=== PATIENT | female | born 1945 | race African-American/Black ===

== ENCOUNTER 2020-03-11 00:42 | Inpatient (IN) | payer OTHER ==
[~2020-03-11] VITALS: Ht 165.1 cm; Wt 66.7 kg
[2020-03-11] VITALS (20 sets, daily range): BP systolic 87–134; BP diastolic 53–79
--- NOTE | 2020-03-11 00:42 | NUR ---
ED Nurse Note: Patient brought in by ambulance [id number] from [facility] for SOB and O2 sat at 69% on 15L BVM. Patient aao x 0, nonverbal, does not respond to painful or verbal stimuli. Patient trached. Patient placed on alarm security or surveillance monitor. RT and ERMD at bedside. 18g Left AC established, all bloodwork drawn, urine, covid, and MRSA VRE CRE swabs sent to lab.
[2020-03-11] MEDS ORDERED: ASPIRIN81 MG ORAL (00:48)
[2020-03-11] MEDS ORDERED: ALLOPURINOL100 M1 ORAL (00:48)
[2020-03-11] MEDS ORDERED: AMANTADINE100 M2 ORAL (00:48)
[2020-03-11] MEDS ORDERED: AMLODIPINE BESY10 MG ORAL (00:48)
[2020-03-11] MEDS ORDERED: FAMOTIDINE20 MG ORAL (00:48)
[2020-03-11 01:19] LABS: HEMATOCRIT 30.7 % (37.0-47.0); MEAN CORPUSCULAR VOLUME 91 FL (80-99); PLATELET COUNT 473 K/UL (150-450); RED BLOOD COUNT 3.36 M/UL (4.20-5.40); RED CELL DISTRIBUTION WIDTH 19.4 % (11.6-14.8)
[2020-03-11 01:21] LABS: WHITE BLOOD COUNT 23.5 K/UL (4.8-10.8)
[2020-03-11 01:25] LABS: APPEARANCE,URINE CLEAR; BILIRUBIN, URINE NEGATIVE (NEGATIVE); COLOR,URINE PALE YELLOW; GLUCOSE, URINE (UA) NEGATIVE (NEGATIVE); KETONES,URINE NEGATIVE (NEGATIVE); LEUKOCYTE ESTERASE ,URINE 2+ (NEGATIVE); NITRITE,URINE NEGATIVE (NEGATIVE); PH,URINE 6.5 (4.5-8.0); PROTEIN,URINE 2+ (NEGATIVE); UROBILINOGEN,URINE NORMAL MG/DL (0.0-1.0)
--- NOTE | 2020-03-11 01:30 | Emergency Room Report ---
History of Present Illness General Chief Complaint: Dyspnea/Respdistress Source: Patient Present Illness HPI 74-year-old female, history of intracranial hemorrhage, respiratory failure, tracheostomy not ventilator dependent here with hypoxia and tachycardia. Patient lives at a longterm and per the longterm report the patient was found to be hypoxic with an oxygen saturation of 65% on room air. He was immediately placed on oxygen via a bag valve and paramedics were immediately called. When they arrived the patient was still hypoxic and was maintained on 15 L of oxygen. They were unable to establish an IV in route. EKG showed sinus tachycardia with a heart rate in the 150s. Patient is nonverbal and alert and oriented x0 at her baseline and is unable to provide history or participate in physical examination or review of systems secondary to her baseline altered mental status. 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 Hx Diabetes: Yes - DM II Hx Gastrointestinal Problems: Yes - GOUT, GLAUCOMA Hx Neurological Problems: Yes - PARKINSONS, DEMENTIA, HYDROCEPHALUS Review of Systems All Other Systems: limited - Alert and oriented x0, nonverbal Physical Exam Vital Signs Date Time Temp Pulse Resp B/P (MAP) Pulse Ox O2 Delivery O2 Flow Rate FiO2 03/11/20 00:35 97.3 140 16 165/98 (120) 69 Ambu-Bag 03/11/20 00:53 100 Sp02 EP Interpretation: reviewed General Appearance: non-toxic, other - Appears cachectic, chronically ill Head: normocephalic, atraumatic Eyes: bilateral eye normal inspection, bilateral eye PERRL ENT: hearing grossly normal, normal pharynx, no angioedema Neck: full range of motion, supple/symm/no masses, other - Tracheostomy in place without any surrounding erythema or induration or bleeding Respiratory: chest non-tender, normal breath sounds, speaking full sentences, other - Mechanical breath sounds and rales in all lung lom[place] Cardiovascular #1: no edema, other - Tachycardic 150 bpm, regular rhythm Cardiovascular #2: 2+ carotid (R), 2+ carotid (L), 2+ radial (R), 2+ radial (L), 2+ dorsalis pedis (R), 2+ dorsalis pedis (L) Gastrointestinal: normal bowel sounds, non tender, soft, non-distended, no guarding, no rebound, other - PEG tube in place without any surrounding erythema or induration or drainage Rectal: deferred Genitourinary: normal inspection, no CVA tenderness Musculoskeletal: back normal, normal range of motion, gait/station normal, non- tender Neurologic: other - Withdraws from pain. Moving all extremities slowly and nonpurposefully. Unable to otherwise participate in neurologic examination. Extraocular movement is intact Psychiatric: judgement/insight normal, memory normal, mood/affect normal, no suicidal/homicidal ideation Lymphatic: no adenopathy Medical Decision Making Diagnostic Impression: Primary Impression: Respiratory failure Additional Impressions: Hypernatremia Pneumonia UTI (urinary tract infection) Sepsis ER Course Total critical care time: Approximately 45 minutes Due to a high probability of clinically significant, life threatening deterioration, the patient required the highest level of preparedness to intervene emergently and I personally spent this critical care time directly and personally managing the patient. This critical care time included obtaining a history, examining the patient, pulse oximetry, ordering and reviewing studies, ordering treatments, evaluating response to treatment and updating management plan as needed, frequent reassessment and discussion with other providers as well as arranging for ultimate disposition. This critical to care time was performed to assess and manage the high probability of life-threatening deterioration that could result in multiorgan failure. This critical care time is separate from the separately billable procedures and treating other patients. Procedure: Ultrasound-guided IV. 18-gauge IV placed in the right brachial vein. No complications EKG: Tachycardic [address] or T wave abnormalities., no ischemia, intervals WNL. No ectopy. Normal axis Rhythm strip: patient monitored for arrhythmias - no malignant dysrhythmias, runs of PVCs, nor pauses noted Laboratory Tests Test 03/11/20 00:45 03/11/20 01:00 White Blood Count 23.5 K/UL (4.8-10.8) *H Red Blood Count 3.36 M/UL (4.20-5.40) L Hemoglobin 9.0 G/DL (12.0-16.0) L Hematocrit 30.7 % (37.0-47.0) L Mean Corpuscular Volume 91 FL (80-99) Mean Corpuscular Hemoglobin 26.9 PG (27.0-31.0) L Mean Corpuscular Hemoglobin Concent 29.4 G/DL (32.0-36.0) L Red Cell Distribution Width 19.4 % (11.6-14.8) H Platelet Count 473 K/UL (150-450) H Mean Platelet Volume 7.7 FL (6.5-10.1) Neutrophils (%) (Auto) % (45.0-75.0) Lymphocytes (%) (Auto) % (20.0-45.0) Monocytes (%) (Auto) % (1.0-10.0) Eosinophils (%) (Auto) % (0.0-3.0) Basophils (%) (Auto) % (0.0-2.0) Neutrophils % (Manual) Pending Lymphocytes % (Manual) Pending Platelet Estimate Pending Platelet Morphology Pending Prothrombin Time 11.8 SEC (9.30-11.50) H Prothrombin Time INR 1.1 (0.9-1.1) Activated Partial Thromboplast Time 28 SEC (23-33) D-Dimer 2.71 mg/L FEU (0.00-0.49) H Sodium Level 163 MMOL/L (136-145) *H Potassium Level 3.9 MMOL/L (3.5-5.1) Chloride Level 124 MMOL/L (98-107) H Carbon Dioxide Level 33 MMOL/L (21-32) H Anion Gap 5 mmol/L (5-15) Blood Urea Nitrogen 65 mg/dL (7-18) H Creatinine 1.3 MG/DL (0.55-1.30) Estimated Glomerular Filtration Rate 48.8 mL/min (>60) Glucose Level 182 MG/DL (74-106) H Lactic Acid Level 3.60 mmol/L (0.4-2.0) H Calcium Level 10.9 MG/DL (8.5-10.1) H Phosphorus Level 2.4 MG/DL (2.5-4.9) L Magnesium Level 2.6 MG/DL (1.8-2.4) H Ferritin 1575 NG/ML (8-388) H Total Bilirubin 0.3 MG/DL (0.2-1.0) Aspartate Amino Transferase (AST) 19 U/L (15-37) Alanine Aminotransferase (ALT) 42 U/L (12-78) Alkaline Phosphatase 173 U/L (46-116) H Lactate Dehydrogenase 232 U/L (81-234) Total Creatine Kinase 86 U/L (26-308) Creatine Kinase MB 0.5 NG/ML (0.0-3.6) Creatine Kinase MB Relative Index 0.5 Troponin I 0.002 ng/mL (0.000-0.056) C-Reactive Protein, Quantitative > 70.0 mg/dL (0.00-0.90) H Pro-B-Type Natriuretic Peptide 894 pg/mL (0-125) H Total Protein 8.2 G/DL (6.4-8.2) Albumin 1.7 G/DL (3.4-5.0) L Globulin 6.5 g/dL Albumin/Globulin Ratio 0.3 (1.0-2.7) L Lipase 147 U/L (73-393) Urine Color Pale yellow Urine Appearance Clear Urine pH 6.5 (4.5-8.0) Urine Specific [place] 1.010 (1.005-1.035) Urine Protein 2+ (NEGATIVE) H Urine Glucose (UA) Negative (NEGATIVE) Urine Ketones Negative (NEGATIVE) Urine Blood 3+ (NEGATIVE) H Urine Nitrite Negative (NEGATIVE) Urine Bilirubin Negative (NEGATIVE) Urine Urobilinogen Normal MG/DL (0.0-1.0) Urine Leukocyte Esterase 2+ (NEGATIVE) H Urine RBC 5-10 /HPF (0 - 2) H Urine WBC 10-15 /HPF (0 - 2) H Urine Squamous Epithelial Cells Few /LPF (NONE/OCC) Urine Calcium Oxalate Crystals Few /LPF (NONE) Urine Bacteria Few /HPF (NONE) Chest x-ray: Left lower lobe consolidation. Rotation. Tracheostomy in place. No bony abnormalities. No free air under the diaphragm 74-year-old female here with respiratory distress. Patient has a tracheostomy in place but is not ventilator dependent. Patient was hypoxic on arrival with an oxygen saturation in the 70s. She was immediately placed on a ventilator with an FiO2 of 100%, PEEP of 5. Tidal volume 400, respiratory rate 16. Patient's apparent respiratory distress seemed to dissipate and patient had normal oxygen saturation throughout the rest of her stay in the emergency department. She was initially tachycardic in the 150s on arrival. A 30 cc/kg fluid bolus was initiated and patient's heart rate gradually came down to the 120s. Her blood pressure remained stable throughout her stay in the emergency department. White blood cell count 23.5. Sodium 163. Chloride 124. Lactic acid 3.5. These labs will be rechecked after a 30 cc/kg fluid bolus is completed. Patient was started on vancomycin and cefepime for treatment of her pneumonia as well as evident UTI on her urinalysis. Patient was slightly more awake and alert after she received the fluid bolus. Patient admitted to ICU. Repeat sodium was still highly elevated at 163. Patient was placed on a continuous infusion of 0.45% saline at 75 cc/hr. Last Vital Signs Date Time Temp Pulse Resp B/P (MAP) Pulse Ox O2 Delivery O2 Flow Rate FiO2 03/11/20 00:53 149 30 100 03/11/20 00:35 97.3 165/98 (120) 69 Eben Chin M.D. Mar 11, 2020 01:30
[2020-03-11] MEDS ORDERED: Vancomycin 1 GM in NS 275 ML IVPB ONE (01:45)
[2020-03-11] MEDS ORDERED: Cefepime HCl 1 GM in D5W 55 ML IVPB ONE (01:45)
[2020-03-11 01:49] LABS: ALANINE AMINOTRANSFERASE 42 U/L (12-78); ALBUMIN 1.7 G/DL (3.4-5.0); ALBUMIN/GLOBULIN RATIO 0.3 (1.0-2.7); ALKALINE PHOSPHATASE 173 U/L (46-116); ANION GAP 5 mmol/L (5-15); ASPARTATE AMINO TRANSFERASE 19 U/L (15-37); BILIRUBIN,TOTAL 0.3 MG/DL (0.2-1.0); BLOOD UREA NITROGEN 65 mg/dL (7-18); CALCIUM 10.9 MG/DL (8.5-10.1); CARBON DIOXIDE 33 MMOL/L (21-32); CHLORIDE 124 MMOL/L (98-107); CKMB 0.5 NG/ML (0.0-3.6); CREATINE KINASE 86 U/L (26-308); CREATININE 1.3 MG/DL (0.55-1.30); FERRITIN 1575 NG/ML (8-388); LACTATE DEHYDROGENASE 232 U/L (81-234); PHOSPHORUS 2.4 MG/DL (2.5-4.9); POTASSIUM 3.9 MMOL/L (3.5-5.1)
--- NOTE | 2020-03-11 01:49 | Diagnostic Imaging Report ---
EXAM: XR Chest, 1 View CLINICAL HISTORY: SOB TECHNIQUE: Frontal view of the chest. COMPARISON: No relevant prior studies available. FINDINGS: Limitations: Study is limited due to rotation of the patient. Lungs: There is focal airspace disease at the left lower lung likely representing pneumonia. Pleural space: Unremarkable. No pneumothorax. Heart: Unremarkable. No cardiomegaly. Mediastinum: Unremarkable. Bones/joints: Unremarkable. Tubes, lines and devices: Tracheostomy tube is present. IMPRESSION: Probable left lower lung pneumonia.
[2020-03-11 01:53] LABS: INR 1.1 (0.9-1.1); SODIUM 163 MMOL/L (136-145)
[2020-03-11 02:59] LABS: CALCIUM 9.4 MG/DL (8.5-10.1); CREATININE 1.2 MG/DL (0.55-1.30); POTASSIUM 3.8 MMOL/L (3.5-5.1)
--- NOTE | 2020-03-11 03:31 | NUR ---
ED Nurse Note: Report given to ADILENE Pop.
--- NOTE | 2020-03-11 03:45 | NUR ---
TRANSFER TO FLOOR: Patient transferred to ICU as ordered, per ERMD. Report given to ADILENE Pop. Patient transported via gurney in stable condition accompanied by RN, intraoperative neuro tech, and RT.
--- NOTE | 2020-03-11 04:00 | NUR ---
NURSE NOTES: Received patient and report from ADILENE Domingo. Patient is observed resting in bed and remains obtunded. No pain noted upon assessment. Pt is currently trach to vent; Vent settings as follows: AC 16 TV 400 FiO2 100% PEEP 5. Bilateral lower lobe breath sounds noted to be diminished upon auscultation, rhonchi noted in bilateral upper lobes. Pt noted to be ST on tele monitor with a HR of 124. R AC 18g IV catheter noted which remains asymptomatic, intact and patent. Active bowel sounds noted in all four quadrants; abdomen remains flat, soft and non-tender. GT noted which remains intact and secured. Suprapubic catheter noted and draining yellow urine to gravity. Diagnostics reviewed at bedside. Skin alterations noted. Fall, Aspiration and Skin precautions observed. Pt remains resting in bed; Bed remains in the lowest position with the safety wheels engaged, call light within reach, side rails up x3 and bed alarm activated. Will continue plan of care. Will continue to monitor.
--- NOTE | 2020-03-11 04:18 | NUR ---
NURSE NOTES: Called Dr Lutz for admission orders. Will await a call back and continue to monitor.
--- NOTE | 2020-03-11 05:04 | NUR ---
NURSE NOTES: Called Dr Lutz for admission orders. Will await a call back and continue to monitor.
--- NOTE | 2020-03-11 05:45 | NUR ---
NURSE NOTES: Called Dr Lutz for admission orders. Will await a call back and continue to monitor.
--- NOTE | 2020-03-11 05:58 | NUR ---
NURSE NOTES: Pt provided with a bed bath, oral care and wound care performed per orders without incident. Bedside assessment performed, assessed pt for pain with a FLACC score of 0 noted. VS remain stable at this time. Pt repositioned for comfort and safety. Fall, Aspiration and Skin precautions observed. Pt remains resting in bed; Bed remains in the lowest position with the safety wheels engaged, call light within reach, side rails up x3 and bed alarm activated. Will continue plan of care. Will continue to monitor.
[2020-03-11] MEDS ORDERED: 1/2NS w/KCl 20mEq 1000ml 1,000 ML IV SCH (06:30)
[2020-03-11] MEDS ORDERED: Amantadine 100mg cap GT SCH ×2 (06:30→09:00)
--- NOTE | 2020-03-11 07:11 | NUR ---
NURSE NOTES: Pt and report received from ADILENE Pop. Pt observed laying in bed, opening eyes spontaneously, however, not tracking and not following commands. Trach to vent, Portex 7, Settings AC 16, TV 400, FiO2 100%, PEEP 5; O2sat on monitor reading 100%. Gtube in place and patent; running Glucerna 1.2 @ 10mL/hr (goal of 45mL/hr). Pt has a suprapubic catheter, 12 Fr, draining to urometer. Skin alterations noted. Rt AC #18g intact and patent. RT to do ABG this morning, as ordered. P200 mattress ordered. Bed locked and in lowest position, with call light within reach. Will resume plan of care and continue to monitor.
--- NOTE | 2020-03-11 07:13 | NUR ---
NURSE HAND-OFF REPORT: Latest Vital Signs: Temperature 99.5 , Pulse 122 , B/P 102 /65 , Respiratory Rate 29 , O2 SAT 100 , Mechanical Ventilator, O2 Flow Rate . Vital Sign Comment: EKG Rhythm: Sinus Tachycardia Rhythm change?: N Notified?: N Response: N/A Latest Ochoa Fall Score: 50 Fall Risk: High Risk Safety Measures: Call light Within Reach, Bed Alarm Zone 2, Side Rails Side Rails x3, Bed position Low and Locked. Fall Precautions: Yellow Socks Door Sign Patient Fall Education Report given to ADILENE Christy.
[2020-03-11] MEDS: Acetaminophen 650mg/20.3ml GT PRN (07:58)
[2020-03-11] MEDS: 1/2NS w/KCl 20mEq 1000ml 1,000 ML IV SCH ×2 (08:00→21:12)
[2020-03-11] MEDS: Aspirin Baby 81mg GT SCH (08:07)
[2020-03-11] MEDS: Allopurinol 100mg Tab GT SCH (08:07)
[2020-03-11] MEDS: Heparin 5000 units/ml inj SUBQ SCH ×2 (08:08→21:00)
[2020-03-11 08:39] LABS: ALBUMIN 1.4 G/DL (3.4-5.0); ALBUMIN/GLOBULIN RATIO 0.2 (1.0-2.7); BILIRUBIN,TOTAL 0.4 MG/DL (0.2-1.0); CALCIUM 9.9 MG/DL (8.5-10.1); CREATININE 1.2 MG/DL (0.55-1.30); PHOSPHORUS 2.5 MG/DL (2.5-4.9); POTASSIUM 4.1 MMOL/L (3.5-5.1)
[2020-03-11 08:42] LABS: HEMATOCRIT 24.4 % (37.0-47.0); HEMOGLOBIN 7.2 G/DL (12.0-16.0); MEAN CORPUSCULAR VOLUME 91 FL (80-99); PLATELET COUNT 405 K/UL (150-450); RED BLOOD COUNT 2.68 M/UL (4.20-5.40); RED CELL DISTRIBUTION WIDTH 18.8 % (11.6-14.8)
--- NOTE | 2020-03-11 08:57 | Consultation ---
History of Present Illness General Date patient seen: Mar 11, 2020 Chief Complaint: Dyspnea/Respdistress Present Illness HPI 74-year-old female with PMHX of intracranial hemorrhage, chronic respiratory failure, tracheostomy was brought in by paramedics from [facility] with CC of hypoxia and tachycardia. She an oxygen saturation of 65% on room air. Pt was put on ventilator in ER and was started on IV fluids and antibiotics and transferred to ICU for further management. Allergies: Coded Allergies: No Known Allergies (Unverified , 03/11/20) Medication History Scheduled Allopurinol* (Allopurinol*), 100 MG ORAL BID, (Reported) Amantadine Hcl* (Amantadine*), 100 MG ORAL TWICE A DAY, (Reported) Amlodipine Besylate* (Amlodipine Besylate*), 10 MG ORAL DAILY, (Reported) Aspirin* (Aspirin*), 81 MG ORAL DAILY, (Reported) Famotidine* (Pepcid 20mg tablet*), 20 MG ORAL DAILY, (Reported) Patient History Healthcare decision maker Resuscitation status Advanced Directive on File Past Medical/Surgical History Past Medical/Surgical History: (1) Stage 4 decubitus ulcer (2) Chronic respiratory failure requiring continuous mechanical ventilation through tracheostomy (3) History of intracranial hemorrhage (4) Idiopathic obstructive hydrocephalus (5) Gout (6) Diabetes mellitus (7) Parkinson's disease dementia Review of Systems All Other Systems: negative except mentioned in HPI Physical Exam General Appearance: cachetic, thin Lines, tubes and drains: peripheral HEENT: normocephalic, atraumatic Neck: non-tender, normal alignment Respiratory/Chest: chest wall non-tender, lungs clear Breasts: no masses Cardiovascular/Chest: normal peripheral pulses Abdomen: normal bowel sounds, non tender Genitourinary/Rectal: normal genital exam Extremities: normal range of motion, normal inspection Skin Exam: warm/dry Neurologic: resource development manager II-XII grossly normal Last 24 Hour Vital Signs Date Time Temp Pulse Resp B/P (MAP) Pulse Ox O2 Delivery O2 Flow Rate FiO2 03/11/20 08:28 100.2 03/11/20 08:07 117 114/61 03/11/20 08:00 Mechanical Ventilator Mechanical Ventilator 03/11/20 08:00 100.5 120 22 114/61 (78) 100 03/11/20 07:00 122 29 102/65 (77) 100 03/11/20 07:00 120 22 100 03/11/20 06:00 99.5 122 25 113/67 (82) 100 03/11/20 05:16 117 27 100 03/11/20 05:00 120 27 115/71 (86) 92 03/11/20 04:00 Mechanical Ventilator Mechanical Ventilator 03/11/20 04:00 101.2 123 26 98/65 (76) 91 03/11/20 04:00 120 03/11/20 03:50 129 37 100 03/11/20 03:45 97.3 123 28 126/68 100 Mechanical Ventilator 100 03/11/20 03:36 100 03/11/20 00:53 149 30 100 03/11/20 00:42 97.3 130 30 134/79 89 Mechanical Ventilator 03/11/20 00:42 130 30 Mechanical Ventilator 03/11/20 00:35 97.3 140 16 165/98 (120) 69 Ambu-Bag Intake and Output 03/10/20 03/11/20 19:00 07:00 Intake Total 2180 ml Output Total 780 ml Balance 1400 ml Intake Oral 0 ml IV Total 2180 ml Output Urine Total 780 ml Laboratory Tests Test 03/11/20 00:45 03/11/20 01:00 03/11/20 02:10 03/11/20 08:10 White Blood Count 23.5 K/UL (4.8-10.8) *H Pending Red Blood Count 3.36 M/UL (4.20-5.40) L Pending Hemoglobin 9.0 G/DL (12.0-16.0) L Pending Hematocrit 30.7 % (37.0-47.0) L Pending Mean Corpuscular Volume 91 FL (80-99) Pending Mean Corpuscular Hemoglobin 26.9 PG (27.0-31.0) L Pending Mean Corpuscular Hemoglobin Concent 29.4 G/DL (32.0-36.0) L Pending Red Cell Distribution Width 19.4 % (11.6-14.8) H Pending Platelet Count 473 K/UL (150-450) H Pending Mean Platelet Volume 7.7 FL (6.5-10.1) Pending Neutrophils (%) (Auto) % (45.0-75.0) Pending Lymphocytes (%) (Auto) % (20.0-45.0) Pending Monocytes (%) (Auto) % (1.0-10.0) Pending Eosinophils (%) (Auto) % (0.0-3.0) Pending Basophils (%) (Auto) % (0.0-2.0) Pending Differential Total Cells Counted 100 Neutrophils % (Manual) 79 % (45-75) H Lymphocytes % (Manual) 12 % (20-45) L Monocytes % (Manual) 2 % (1-10) Eosinophils % (Manual) 5 % (0-3) H Basophils % (Manual) 0 % (0-2) Band Neutrophils 2 % (0-8) Platelet Estimate Adequate Platelet Morphology Normal Prothrombin Time 11.8 SEC (9.30-11.50) H Prothromb Time International Ratio 1.1 (0.9-1.1) Activated Partial Thromboplast Time 28 SEC (23-33) D-Dimer 2.71 mg/L FEU (0.00-0.49) H Sodium Level 163 MMOL/L (136-145) *H 163 MMOL/L (136-145) *H 162 MMOL/L (136-145) *H Potassium Level 3.9 MMOL/L (3.5-5.1) 3.8 MMOL/L (3.5-5.1) 4.1 MMOL/L (3.5-5.1) Chloride Level 124 MMOL/L (98-107) H 128 MMOL/L (98-107) H 128 MMOL/L (98-107) H Carbon Dioxide Level 33 MMOL/L (21-32) H 31 MMOL/L (21-32) 28 MMOL/L (21-32) Anion Gap 5 mmol/L (5-15) 4 mmol/L (5-15) L 6 mmol/L (5-15) Blood Urea Nitrogen 65 mg/dL (7-18) H 59 mg/dL (7-18) H 57 mg/dL (7-18) H Creatinine 1.3 MG/DL (0.55-1.30) 1.2 MG/DL (0.55-1.30) 1.2 MG/DL (0.55-1.30) Estimat Glomerular Filtration Rate 48.8 mL/min (>60) 53.4 mL/min (>60) 53.4 mL/min (>60) Glucose Level 182 MG/DL (74-106) H 141 MG/DL (74-106) H 131 MG/DL (74-106) H Lactic Acid Level 3.60 mmol/L (0.4-2.0) H 2.10 mmol/L (0.66-2.22) Pending Calcium Level 10.9 MG/DL (8.5-10.1) H 9.4 MG/DL (8.5-10.1) 9.9 MG/DL (8.5-10.1) Phosphorus Level 2.4 MG/DL (2.5-4.9) L 2.5 MG/DL (2.5-4.9) Magnesium Level 2.6 MG/DL (1.8-2.4) H 2.3 MG/DL (1.8-2.4) Ferritin 1575 NG/ML (8-388) H Total Bilirubin 0.3 MG/DL (0.2-1.0) 0.4 MG/DL (0.2-1.0) Aspartate Amino Transf (AST/SGOT) 19 U/L (15-37) 20 U/L (15-37) Alanine Aminotransferase (ALT/SGPT) 42 U/L (12-78) 35 U/L (12-78) Alkaline Phosphatase 173 U/L (46-116) H 141 U/L (46-116) H Lactate Dehydrogenase 232 U/L (81-234) Total Creatine Kinase 86 U/L (26-308) Creatine Kinase MB 0.5 NG/ML (0.0-3.6) Creatine Kinase MB Relative Index 0.5 Troponin I 0.002 ng/mL (0.000-0.056) 0.027 ng/mL (0.000-0.056) C-Reactive Protein, Quantitative > 70.0 mg/dL (0.00-0.90) H Pro-B-Type Natriuretic Peptide 894 pg/mL (0-125) H Total Protein 8.2 G/DL (6.4-8.2) 7.1 G/DL (6.4-8.2) Albumin 1.7 G/DL (3.4-5.0) L 1.4 G/DL (3.4-5.0) L Globulin 6.5 g/dL 5.7 g/dL Albumin/Globulin Ratio 0.3 (1.0-2.7) L 0.2 (1.0-2.7) L Lipase 147 U/L (73-393) Urine Color Pale yellow Urine Appearance Clear Urine pH 6.5 (4.5-8.0) Urine Specific [place] 1.010 (1.005-1.035) Urine Protein 2+ (NEGATIVE) H Urine Glucose (UA) Negative (NEGATIVE) Urine Ketones Negative (NEGATIVE) Urine Blood 3+ (NEGATIVE) H Urine Nitrite Negative (NEGATIVE) Urine Bilirubin Negative (NEGATIVE) Urine Urobilinogen Normal MG/DL (0.0-1.0) Urine Leukocyte Esterase 2+ (NEGATIVE) H Urine RBC 5-10 /HPF (0 - 2) H Urine WBC 10-15 /HPF (0 - 2) H Urine Squamous Epithelial Cells Few /LPF (NONE/OCC) Urine Calcium Oxalate Crystals Few /LPF (NONE) Urine Bacteria Few /HPF (NONE) Test 03/11/20 08:22 Arterial Blood pH 7.433 (7.350-7.450) Arterial Blood Partial Pressure CO2 38.0 mmHg (35.0-45.0) Arterial Blood Partial Pressure O2 419.0 mmHg (75.0-100.0) H Arterial Blood HCO3 24.8 mmol/L (22.0-26.0) Arterial Blood Oxygen Saturation 99.1 % (95-100) Arterial Blood Base Excess 0.6 (-2-2) Mukul Test Positive Microbiology Date/Time Source Procedure Growth Status 03/11/20 00:59 Nasopharynx SARS-CoV-2 RdRp Gene Assay - Final Complete Height (Feet): 5 Height (Inches): 5.00 Weight (Pounds): 147 Medications Current Medications Medications (Trade) Dose Ordered Sig/Zaki Route PRN Reason Start Time Stop Time Status Last Admin Dose Admin Acetaminophen (Tylenol) 650 mg Q6H PRN GT Temp >100.5, Mild Pain 03/11/20 06:30 04/10/20 06:29 03/11/20 07:58 Acetaminophen/ Codeine Phosphate (Tylenol #3) 1 tab Q6H PRN GT For Mod-Severe Pain 03/11/20 06:30 03/18/20 06:29 Allopurinol (Zyloprim) 100 mg DAILY GT 03/11/20 09:00 04/10/20 08:59 03/11/20 08:07 Amantadine HCl (Symmetrel) 100 mg DAILY GT 03/11/20 09:00 04/10/20 08:59 UNV Amlodipine Besylate (Norvasc) 10 mg DAILY GT 03/11/20 09:00 04/10/20 08:59 03/11/20 08:07 Aspirin (ASA) 81 mg DAILY GT 03/11/20 09:00 04/25/20 08:59 03/11/20 08:07 Cefepime HCl 1 gm/ Dextrose 55 ml @ 110 mls/hr Q24H IVPB 03/12/20 02:00 03/19/20 01:59 Famotidine (Pepcid) 20 mg DAILY GT 03/11/20 09:00 06/09/20 08:59 03/11/20 08:07 Heparin Sodium (Porcine) (Heparin 5000 units/ml) 5,000 units EVERY 12 HOURS SUBQ 03/11/20 09:00 04/25/20 08:59 03/11/20 08:08 Ondansetron HCl (Zofran) 4 mg Q4H PRN IVP Nausea & Vomiting 03/11/20 06:30 04/10/20 06:29 Sodium 1,000 ml @ 75 mls/hr [id number] IV 03/11/20 07:30 04/10/20 07:29 03/11/20 08:00 Vancomycin HCl (Vanco pharmacy to dose) 1 ea DAILY PRN MISC Per rx protocol 03/11/20 06:30 04/10/20 06:29 Vancomycin HCl 1 gm/Sodium Chloride 275 ml @ 183.708 mls/hr Q24H IVPB 03/12/20 03:00 03/17/20 02:59 Assessment/Plan Problem List: (1) Acute on chronic respiratory failure ICD Codes: J96.20 - Acute and chronic respiratory failure, unspecified whether with hypoxia or hypercapnia SNOMED: 22389346 (2) Sepsis ICD Codes: A41.9 - Sepsis, unspecified organism SNOMED: 74455272 (3) Chronic respiratory failure requiring continuous mechanical ventilation through tracheostomy ICD Codes: J96.10 - Chronic respiratory failure, unspecified whether with hypoxia or hypercapnia; Z93.0 - Tracheostomy status; Z99.11 - Dependence on respirator [ventilator] status SNOMED: 10150890, 482408391, 533284246 (4) Stage 4 decubitus ulcer ICD Codes: L89.94 - Pressure ulcer of unspecified site, stage 4 SNOMED: 922105818 (5) Idiopathic obstructive hydrocephalus ICD Codes: G91.1 - Obstructive hydrocephalus SNOMED: 62883609, 826318413 (6) History of intracranial hemorrhage ICD Codes: Z86.79 - Personal history of other diseases of the circulatory system SNOMED: 41737914967825143 (7) Parkinson's disease dementia ICD Codes: G20 - Parkinson's disease; F02.80 - Dementia in other diseases classified elsewhere without behavioral disturbance SNOMED: 906600444904008 (8) Diabetes mellitus ICD Codes: E11.9 - Type 2 diabetes mellitus without complications SNOMED: 67076061 Respiratory: monitor respiratory rate, adjust FIO2, CXR Cardiac: continue to monitor HR/BP Renal: F/U I&O, keep IV fluid, check electrolytes Infectious Disease: check cultures, continue antibiotics Gastrointestinal: hold feedings - and infuse tap water to through Gtube Endocrine: monitor blood sugar Hematologic: monitor H/H, transfuse if hgb<8.5 Neurologic: PRN Ativan, keep patient comfortable Affect: PRN ativan Disposition: keep in ICU Notes 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
[2020-03-11] MEDS ORDERED: Amantadine 100mg cap GT ONE (09:00)
--- NOTE | 2020-03-11 09:00 | NUR ---
NURSE NOTES: Dr Matta at bedside assessing the pt. Updated him on pt's current condition. New orders noted and acknowledged.
--- NOTE | 2020-03-11 09:21 | NUR ---
RD ASSESSMENT & RECOMMENDATIONS SEE CARE ACTIVITY FOR COMPLETE ASSESSMENT DAILY ESTIMATED NEEDS: Needs based on Advanced wound, critical care, underweight, BUSHLER TF/ 45.5kg 30-40 kcals/kg 3818-8513 total kcals 1.5-2 g protein/kg 68-91 g total protein 30-40 mL/kg 1732-9531 total fluid mLs NUTRITION DIAGNOSIS: Increased kcal/prot needs R/T underweight status, wound healing as evidenced by pt @83% IBW w/ underweight BMI of 17.2, admitted w/ multiple wounds, including stage 4 sacral wound. CURRENT TF:Glucerna 1.2 @ 45ml/hr x 24 hrs ENTERAL NUTRITION RECOMMENDATIONS: Glucerna 1.2 @ 60ml/hr x 24 hrs to provide 1440ml, 1728kcal, 86g prot, 1159ml free water * Increase goal rate to 60ml/hr x 24 hrs to meet 100% est kcal/prot needs -> 1.9g prot/kg * HOB over 30 degrees/ water flush per MD * add Shen BID ADDITIONAL RECOMMENDATIONS: * Per SNF: HT=64" and DJ=027# vs EMR wt of 147lbs -> rec daily calibrated bedscale wt * Wound healing: TF rec @ goal will provide 100% RDI Vit C 500mg BID, ZnSO4 220gm QD x 10 days Shen BID via PEG * Monitor BGs, consider NISS: h/o DM * Monitor lytes, replete as needed
[2020-03-11 09:23] LABS: CREATINE KINASE 110 U/L (26-308)
--- NOTE | 2020-03-11 10:13 | NUR ---
RESPIRATORY NOTE: Pt received on AC vent settings: 16, 400, 100%, +5. Pt trach Portex #7, midline and secured with a trach tie. Pt sleeping, HR and SpO2 within normal limits. B/S bilateral rhonchi with equal chest rise. Suctioned moderate amount of pale yellow secretions. Vent plugged into red outlet, alarms are on and audible. Ambu bag at bedside. No signs of resp distress at this time. Will continue to monitor.
[2020-03-11 10:24] LABS: APPEARANCE,URINE SLIGHTLY CLOUDY; BILIRUBIN, URINE NEGATIVE (NEGATIVE); GLUCOSE, URINE (UA) NEGATIVE (NEGATIVE); KETONES,URINE 1+ (NEGATIVE); LEUKOCYTE ESTERASE ,URINE 3+ (NEGATIVE); NITRITE,URINE NEGATIVE (NEGATIVE); PH,URINE 5 (4.5-8.0); PROTEIN,URINE 2+ (NEGATIVE); UROBILINOGEN,URINE NORMAL MG/DL (0.0-1.0)
[2020-03-11 10:29] LABS: COLOR,URINE YELLOW
--- NOTE | 2020-03-11 10:45 | NUR ---
NURSE NOTES: RT decreased FiO2 to 70%. Pt tolerating well. O2sat shows 100% on cardiac tech.
--- NOTE | 2020-03-11 12:00 | NUR ---
NURSE NOTES: Pt turned and repositioned. Tap water continues to run via [employer] @ 50mL/hr.
--- NOTE | 2020-03-11 13:37 | NUR ---
NURSE NOTES: Dr Cruz at bedside assessing pt. Updated him on pt's current condition.
--- NOTE | 2020-03-11 13:49 | Infectious Diseases Prog Note ---
Subjective Allergies: Coded Allergies: No Known Allergies (Unverified , 03/11/20) # [id number] Objective Last 24 Hour Vital Signs Date Time Temp Pulse Resp B/P (MAP) Pulse Ox O2 Delivery O2 Flow Rate FiO2 03/11/20 13:00 104 26 106/68 (81) 100 03/11/20 12:00 99 24 103/59 (74) 100 03/11/20 12:00 Mechanical Ventilator Mechanical Ventilator 03/11/20 12:00 70 03/11/20 12:00 99 03/11/20 12:00 98.4 95 24 103/59 (74) 100 03/11/20 11:01 105 23 70 03/11/20 11:00 100 25 96/62 (73) 100 03/11/20 10:00 70 03/11/20 10:00 99.9 104 23 95/59 (71) 100 03/11/20 09:20 110 20 100 03/11/20 09:06 112 22 99/57 (71) 100 03/11/20 09:00 112 24 87/60 (69) 100 03/11/20 08:28 100.2 03/11/20 08:07 117 114/61 03/11/20 08:00 Mechanical Ventilator Mechanical Ventilator 03/11/20 08:00 119 03/11/20 08:00 100.5 120 22 114/61 (78) 100 03/11/20 07:00 122 29 102/65 (77) 100 03/11/20 07:00 120 22 100 03/11/20 06:00 99.5 122 25 113/67 (82) 100 03/11/20 05:16 117 27 100 03/11/20 05:00 120 27 115/71 (86) 92 03/11/20 04:00 Mechanical Ventilator Mechanical Ventilator 03/11/20 04:00 101.2 123 26 98/65 (76) 91 03/11/20 04:00 120 03/11/20 03:50 129 37 100 03/11/20 03:45 97.3 123 28 126/68 100 Mechanical Ventilator 100 03/11/20 03:36 100 03/11/20 00:53 149 30 100 03/11/20 00:42 97.3 130 30 134/79 89 Mechanical Ventilator 03/11/20 00:42 130 30 Mechanical Ventilator 03/11/20 00:35 97.3 140 16 165/98 (120) 69 Ambu-Bag Height (Feet): 5 Height (Inches): 5.00 Weight (Pounds): 147 HEENT: atraumatic Respiratory/Chest: normal breath sounds Cardiovascular: regular rhythm Abdomen: soft, non tender Microbiology Date/Time Source Procedure Growth Status 03/11/20 00:59 Nasopharynx SARS-CoV-2 RdRp Gene Assay - Final Complete Laboratory Tests Test 03/11/20 00:45 03/11/20 01:00 03/11/20 02:10 03/11/20 08:10 White Blood Count 23.5 K/UL (4.8-10.8) *H 28.0 K/UL (4.8-10.8) *H Red Blood Count 3.36 M/UL (4.20-5.40) L 2.68 M/UL (4.20-5.40) L Hemoglobin 9.0 G/DL (12.0-16.0) L 7.2 G/DL (12.0-16.0) L Hematocrit 30.7 % (37.0-47.0) L 24.4 % (37.0-47.0) L Mean Corpuscular Volume 91 FL (80-99) 91 FL (80-99) Mean Corpuscular Hemoglobin 26.9 PG (27.0-31.0) L 26.8 PG (27.0-31.0) L Mean Corpuscular Hemoglobin Concent 29.4 G/DL (32.0-36.0) L 29.5 G/DL (32.0-36.0) L Red Cell Distribution Width 19.4 % (11.6-14.8) H 18.8 % (11.6-14.8) H Platelet Count 473 K/UL (150-450) H 405 K/UL (150-450) Mean Platelet Volume 7.7 FL (6.5-10.1) 7.5 FL (6.5-10.1) Neutrophils (%) (Auto) % (45.0-75.0) % (45.0-75.0) Lymphocytes (%) (Auto) % (20.0-45.0) % (20.0-45.0) Monocytes (%) (Auto) % (1.0-10.0) % (1.0-10.0) Eosinophils (%) (Auto) % (0.0-3.0) % (0.0-3.0) Basophils (%) (Auto) % (0.0-2.0) % (0.0-2.0) Differential Total Cells Counted 100 100 Neutrophils % (Manual) 79 % (45-75) H 64 % (45-75) Lymphocytes % (Manual) 12 % (20-45) L 11 % (20-45) L Monocytes % (Manual) 2 % (1-10) 2 % (1-10) Eosinophils % (Manual) 5 % (0-3) H 3 % (0-3) Basophils % (Manual) 0 % (0-2) 0 % (0-2) Band Neutrophils 2 % (0-8) 17 % (0-8) H Platelet Estimate Adequate Adequate Platelet Morphology Normal Normal Prothrombin Time 11.8 SEC (9.30-11.50) H Prothromb Time International Ratio 1.1 (0.9-1.1) Activated Partial Thromboplast Time 28 SEC (23-33) D-Dimer 2.71 mg/L FEU (0.00-0.49) H Sodium Level 163 MMOL/L (136-145) *H 163 MMOL/L (136-145) *H 162 MMOL/L (136-145) *H Potassium Level 3.9 MMOL/L (3.5-5.1) 3.8 MMOL/L (3.5-5.1) 4.1 MMOL/L (3.5-5.1) Chloride Level 124 MMOL/L (98-107) H 128 MMOL/L (98-107) H 128 MMOL/L (98-107) H Carbon Dioxide Level 33 MMOL/L (21-32) H 31 MMOL/L (21-32) 28 MMOL/L (21-32) Anion Gap 5 mmol/L (5-15) 4 mmol/L (5-15) L 6 mmol/L (5-15) Blood Urea Nitrogen 65 mg/dL (7-18) H 59 mg/dL (7-18) H 57 mg/dL (7-18) H Creatinine 1.3 MG/DL (0.55-1.30) 1.2 MG/DL (0.55-1.30) 1.2 MG/DL (0.55-1.30) Estimat Glomerular Filtration Rate 48.8 mL/min (>60) 53.4 mL/min (>60) 53.4 mL/min (>60) Glucose Level 182 MG/DL (74-106) H 141 MG/DL (74-106) H 131 MG/DL (74-106) H Lactic Acid Level 3.60 mmol/L (0.4-2.0) H 2.10 mmol/L (0.66-2.22) 1.20 mmol/L (0.4-2.0) Calcium Level 10.9 MG/DL (8.5-10.1) H 9.4 MG/DL (8.5-10.1) 9.9 MG/DL (8.5-10.1) Phosphorus Level 2.4 MG/DL (2.5-4.9) L 2.5 MG/DL (2.5-4.9) Magnesium Level 2.6 MG/DL (1.8-2.4) H 2.3 MG/DL (1.8-2.4) Ferritin 1575 NG/ML (8-388) H Total Bilirubin 0.3 MG/DL (0.2-1.0) 0.4 MG/DL (0.2-1.0) Aspartate Amino Transf (AST/SGOT) 19 U/L (15-37) 20 U/L (15-37) Alanine Aminotransferase (ALT/SGPT) 42 U/L (12-78) 35 U/L (12-78) Alkaline Phosphatase 173 U/L (46-116) H 141 U/L (46-116) H Lactate Dehydrogenase 232 U/L (81-234) Total Creatine Kinase 86 U/L (26-308) 110 U/L (26-308) Creatine Kinase MB 0.5 NG/ML (0.0-3.6) Creatine Kinase MB Relative Index 0.5 Troponin I 0.002 ng/mL (0.000-0.056) 0.027 ng/mL (0.000-0.056) C-Reactive Protein, Quantitative > 70.0 mg/dL (0.00-0.90) H Pro-B-Type Natriuretic Peptide 894 pg/mL (0-125) H Total Protein 8.2 G/DL (6.4-8.2) 7.1 G/DL (6.4-8.2) Albumin 1.7 G/DL (3.4-5.0) L 1.4 G/DL (3.4-5.0) L Globulin 6.5 g/dL 5.7 g/dL Albumin/Globulin Ratio 0.3 (1.0-2.7) L 0.2 (1.0-2.7) L Lipase 147 U/L (73-393) Urine Color Pale yellow Urine Appearance Clear Urine pH 6.5 (4.5-8.0) Urine Specific [place] 1.010 (1.005-1.035) Urine Protein 2+ (NEGATIVE) H Urine Glucose (UA) Negative (NEGATIVE) Urine Ketones Negative (NEGATIVE) Urine Blood 3+ (NEGATIVE) H Urine Nitrite Negative (NEGATIVE) Urine Bilirubin Negative (NEGATIVE) Urine Urobilinogen Normal MG/DL (0.0-1.0) Urine Leukocyte Esterase 2+ (NEGATIVE) H Urine RBC 5-10 /HPF (0 - 2) H Urine WBC 10-15 /HPF (0 - 2) H Urine Squamous Epithelial Cells Few /LPF (NONE/OCC) Urine Calcium Oxalate Crystals Few /LPF (NONE) Urine Bacteria Few /HPF (NONE) Metamyelocytes % 1 % (0-0) H Myelocytes % 2 % (0-0) H Nucleated Red Blood Cells 3 /100 WBC Hypochromasia 2+ Anisocytosis 2+ Uric Acid 4.3 MG/DL (2.6-7.2) Test 03/11/20 08:22 03/11/20 09:43 Arterial Blood pH 7.433 (7.350-7.450) Arterial Blood Partial Pressure CO2 38.0 mmHg (35.0-45.0) Arterial Blood Partial Pressure O2 419.0 mmHg (75.0-100.0) H Arterial Blood HCO3 24.8 mmol/L (22.0-26.0) Arterial Blood Oxygen Saturation 99.1 % (95-100) Arterial Blood Base Excess 0.6 (-2-2) Mukul Test Positive Urine Color Yellow Urine Appearance Slightly cloudy Urine pH 5 (4.5-8.0) Urine Specific [place] 1.005 (1.005-1.035) Urine Protein 2+ (NEGATIVE) H Urine Glucose (UA) Negative (NEGATIVE) Urine Ketones 1+ (NEGATIVE) H Urine Blood 2+ (NEGATIVE) H Urine Nitrite Negative (NEGATIVE) Urine Bilirubin Negative (NEGATIVE) Urine Urobilinogen Normal MG/DL (0.0-1.0) Urine Leukocyte Esterase 3+ (NEGATIVE) H Urine RBC 0-2 /HPF (0 - 2) Urine WBC 15-20 /HPF (0 - 2) H Urine Squamous Epithelial Cells None /LPF (NONE/OCC) Urine Bacteria Moderate /HPF (NONE) H Urine Eosinophils None seen (NONE SEEN) Urine Random Sodium < 20 mmol/L (20-110) L Urine Potassium Timed 26 mmol/L (12-62) Current Medications Medications (Trade) Dose Ordered Sig/Zaki Route PRN Reason Start Time Stop Time Status Last Admin Dose Admin Acetaminophen (Tylenol) 650 mg Q6H PRN GT Temp >100.5, Mild Pain 03/11/20 06:30 04/10/20 06:29 03/11/20 07:58 Acetaminophen/ Codeine Phosphate (Tylenol #3) 1 tab Q6H PRN GT For Mod-Severe Pain 03/11/20 06:30 03/18/20 06:29 Allopurinol (Zyloprim) 100 mg DAILY GT 03/11/20 09:00 04/10/20 08:59 03/11/20 08:07 Amlodipine Besylate (Norvasc) 10 mg DAILY GT 03/11/20 09:00 04/10/20 08:59 03/11/20 08:07 Aspirin (ASA) 81 mg DAILY GT 03/11/20 09:00 04/25/20 08:59 03/11/20 08:07 Cefepime HCl 1 gm/ Dextrose 55 ml @ 110 mls/hr Q24H IVPB 03/12/20 02:00 03/19/20 01:59 Famotidine (Pepcid) 20 mg DAILY GT 03/11/20 09:00 06/09/20 08:59 03/11/20 08:07 Heparin Sodium (Porcine) (Heparin 5000 units/ml) 5,000 units EVERY 12 HOURS SUBQ 03/11/20 09:00 04/25/20 08:59 03/11/20 08:08 Ondansetron HCl (Zofran) 4 mg Q4H PRN IVP Nausea & Vomiting 03/11/20 06:30 04/10/20 06:29 Sodium 1,000 ml @ 75 mls/hr [id number] IV 03/11/20 07:30 04/10/20 07:29 03/11/20 08:00 Vancomycin HCl (Vanco pharmacy to dose) 1 ea DAILY PRN MISC Per rx protocol 03/11/20 06:30 04/10/20 06:29 Vancomycin HCl 1 gm/Sodium Chloride 275 ml @ 183.708 mls/hr Q24H IVPB 03/12/20 03:00 03/17/20 02:59 Javy Cruz MD Mar 11, 2020 13:49
--- NOTE | 2020-03-11 14:58 | Consultation ---
History of Present Illness General Date patient seen: Mar 11, 2020 Reason for Hospitalization: Dyspnea/Respdistress Present Illness HPI This is a unfortunate 74-year-old female with history of intracranial hemorrhage, respiratory failure, tracheostomy who presented to [facility] [place] [facility] for evaluat ion of hypoxia and tachycardia. Patient lives at a alf and per the alf report the patient was found to be hypoxic with an oxygen saturation of 65% on room air. Immediately placed on oxygen via a bag valve and paramedics were immediately where she was transported to [facility] [place] ED. On arrival she was still hypoxic and was maintained on 15 L of oxygen. EKG showed sinus tachycardia with a heart rate in the 150s. Patient is nonverbal and alert and oriented x0 at her baseline and is unable to provide history or participate in physical examination or review of systems secondary to her baseline altered mental status. Admitted for care and management. Noted to have abnormal labs, lbmi, and breakdown. surgery called to evaluate Allergies: Coded Allergies: No Known Allergies (Unverified , 03/11/20) COVID-19 Screening Contact w/high risk pt: Yes Experienced COVID-19 symptoms?: Yes Coronavirus symptoms experienc: Fever (T>100.4F or >38C), Shortness of Breath Medication History Scheduled Allopurinol* (Allopurinol*), 100 MG ORAL BID, (Reported) Amantadine Hcl* (Amantadine*), 100 MG ORAL TWICE A DAY, (Reported) Amlodipine Besylate* (Amlodipine Besylate*), 10 MG ORAL DAILY, (Reported) Aspirin* (Aspirin*), 81 MG ORAL DAILY, (Reported) Famotidine* (Pepcid 20mg tablet*), 20 MG ORAL DAILY, (Reported) Patient History Limited by: medical condition History Provided By: Medical Record, PMD Healthcare decision maker Resuscitation status Advanced Directive on File Past Medical/Surgical History Past Medical/Surgical History: (1) Hypernatremia (2) Sepsis (3) UTI (urinary tract infection) (4) Stage 4 decubitus ulcer (5) Chronic respiratory failure requiring continuous mechanical ventilation through tracheostomy (6) History of intracranial hemorrhage (7) Idiopathic obstructive hydrocephalus (8) Gout (9) Diabetes mellitus (10) Parkinson's disease dementia (11) Acute on chronic respiratory failure (12) Chronic vegetative state (13) Severe protein-calorie malnutrition Review of Systems Review of Symptoms General ROS: no weight loss or fever Psychological ROS: no depression or mood changes, no memory loss Ophthalmic ROS: no visual changes or eye irritation ENT ROS: no nasal congestion, hearing loss, dizziness Allergy and Immunology ROS: no allergic symptoms or urticaria Hematological and Lymphatic ROS: no swollen glands, unusual bleeding or bruising Endocrine ROS: no polyuria, polydipsia, weight changes, temperature intolerance Respiratory ROS: no cough, shortness of breath, or wheezing Cardiovascular ROS: no chest pain or dyspnea on exertion Gastrointestinal ROS: denies abdominal pain, bright red blood in stool. Musculoskeletal ROS: no myalgias or arthralgias Neurological ROS: no TIA or stroke symptoms Dermatological ROS: no new or changing skin lesions, rashes or pruritis unable to obtain given mental status Physical Exam Physical Exam General appearance: mild distress, appears stated age Head: abnormality, atraumatic Eyes: conjunctivae/corneas clear. PERRL, EOM's intact. Fundi benign Throat: Lips, mucosa, and tongue normal. Teeth and gums normal Neck: supple, symmetrical, trachea midline, no adenopathy, thyroid: not enlarged, symmetric, no tenderness/mass/nodules, no carotid bruit and no JVD trach on support Lungs: dec to auscultation bilaterally Heart: tachy, S1, S2 normal, no murmur, click, rub or gallop Abdomen: soft, non-tender. Bowel sounds normal. No masses, no organomegaly tf Extremities: extremities see Pulses: 2+ and symmetric Skin: Skin see below Neurologic: Grossly normal Last 24 Hour Vital Signs Date Time Temp Pulse Resp B/P (MAP) Pulse Ox O2 Delivery O2 Flow Rate FiO2 03/11/20 14:00 103 26 112/60 (77) 100 03/11/20 13:10 107 20 70 03/11/20 13:00 104 26 106/68 (81) 100 03/11/20 12:00 99 24 103/59 (74) 100 03/11/20 12:00 Mechanical Ventilator Mechanical Ventilator 03/11/20 12:00 70 03/11/20 12:00 99 03/11/20 12:00 98.4 95 24 103/59 (74) 100 03/11/20 11:01 105 23 70 03/11/20 11:00 100 25 96/62 (73) 100 03/11/20 10:00 70 03/11/20 10:00 99.9 104 23 95/59 (71) 100 03/11/20 09:20 110 20 100 03/11/20 09:06 112 22 99/57 (71) 100 03/11/20 09:00 112 24 87/60 (69) 100 03/11/20 08:28 100.2 03/11/20 08:07 117 114/61 03/11/20 08:00 Mechanical Ventilator Mechanical Ventilator 03/11/20 08:00 119 03/11/20 08:00 100.5 120 22 114/61 (78) 100 03/11/20 07:00 122 29 102/65 (77) 100 03/11/20 07:00 120 22 100 03/11/20 06:00 99.5 122 25 113/67 (82) 100 03/11/20 05:16 117 27 100 03/11/20 05:00 120 27 115/71 (86) 92 03/11/20 04:00 Mechanical Ventilator Mechanical Ventilator 03/11/20 04:00 101.2 123 26 98/65 (76) 91 03/11/20 04:00 120 03/11/20 03:50 129 37 100 03/11/20 03:45 97.3 123 28 126/68 100 Mechanical Ventilator 100 03/11/20 03:36 100 03/11/20 00:53 149 30 100 03/11/20 00:42 97.3 130 30 134/79 89 Mechanical Ventilator 03/11/20 00:42 130 30 Mechanical Ventilator 03/11/20 00:35 97.3 140 16 165/98 (120) 69 Ambu-Bag Intake and Output 03/10/20 03/11/20 19:00 07:00 Intake Total 2180 ml Output Total 780 ml Balance 1400 ml Intake Oral 0 ml IV Total 2180 ml Output Urine Total 780 ml Laboratory Tests Test 03/11/20 00:45 03/11/20 01:00 03/11/20 02:10 03/11/20 08:10 White Blood Count 23.5 K/UL (4.8-10.8) *H 28.0 K/UL (4.8-10.8) *H Red Blood Count 3.36 M/UL (4.20-5.40) L 2.68 M/UL (4.20-5.40) L Hemoglobin 9.0 G/DL (12.0-16.0) L 7.2 G/DL (12.0-16.0) L Hematocrit 30.7 % (37.0-47.0) L 24.4 % (37.0-47.0) L Mean Corpuscular Volume 91 FL (80-99) 91 FL (80-99) Mean Corpuscular Hemoglobin 26.9 PG (27.0-31.0) L 26.8 PG (27.0-31.0) L Mean Corpuscular Hemoglobin Concent 29.4 G/DL (32.0-36.0) L 29.5 G/DL (32.0-36.0) L Red Cell Distribution Width 19.4 % (11.6-14.8) H 18.8 % (11.6-14.8) H Platelet Count 473 K/UL (150-450) H 405 K/UL (150-450) Mean Platelet Volume 7.7 FL (6.5-10.1) 7.5 FL (6.5-10.1) Neutrophils (%) (Auto) % (45.0-75.0) % (45.0-75.0) Lymphocytes (%) (Auto) % (20.0-45.0) % (20.0-45.0) Monocytes (%) (Auto) % (1.0-10.0) % (1.0-10.0) Eosinophils (%) (Auto) % (0.0-3.0) % (0.0-3.0) Basophils (%) (Auto) % (0.0-2.0) % (0.0-2.0) Differential Total Cells Counted 100 100 Neutrophils % (Manual) 79 % (45-75) H 64 % (45-75) Lymphocytes % (Manual) 12 % (20-45) L 11 % (20-45) L Monocytes % (Manual) 2 % (1-10) 2 % (1-10) Eosinophils % (Manual) 5 % (0-3) H 3 % (0-3) Basophils % (Manual) 0 % (0-2) 0 % (0-2) Band Neutrophils 2 % (0-8) 17 % (0-8) H Platelet Estimate Adequate Adequate Platelet Morphology Normal Normal Prothrombin Time 11.8 SEC (9.30-11.50) H Prothromb Time International Ratio 1.1 (0.9-1.1) Activated Partial Thromboplast Time 28 SEC (23-33) D-Dimer 2.71 mg/L FEU (0.00-0.49) H Sodium Level 163 MMOL/L (136-145) *H 163 MMOL/L (136-145) *H 162 MMOL/L (136-145) *H Potassium Level 3.9 MMOL/L (3.5-5.1) 3.8 MMOL/L (3.5-5.1) 4.1 MMOL/L (3.5-5.1) Chloride Level 124 MMOL/L (98-107) H 128 MMOL/L (98-107) H 128 MMOL/L (98-107) H Carbon Dioxide Level 33 MMOL/L (21-32) H 31 MMOL/L (21-32) 28 MMOL/L (21-32) Anion Gap 5 mmol/L (5-15) 4 mmol/L (5-15) L 6 mmol/L (5-15) Blood Urea Nitrogen 65 mg/dL (7-18) H 59 mg/dL (7-18) H 57 mg/dL (7-18) H Creatinine 1.3 MG/DL (0.55-1.30) 1.2 MG/DL (0.55-1.30) 1.2 MG/DL (0.55-1.30) Estimat Glomerular Filtration Rate 48.8 mL/min (>60) 53.4 mL/min (>60) 53.4 mL/min (>60) Glucose Level 182 MG/DL (74-106) H 141 MG/DL (74-106) H 131 MG/DL (74-106) H Lactic Acid Level 3.60 mmol/L (0.4-2.0) H 2.10 mmol/L (0.66-2.22) 1.20 mmol/L (0.4-2.0) Calcium Level 10.9 MG/DL (8.5-10.1) H 9.4 MG/DL (8.5-10.1) 9.9 MG/DL (8.5-10.1) Phosphorus Level 2.4 MG/DL (2.5-4.9) L 2.5 MG/DL (2.5-4.9) Magnesium Level 2.6 MG/DL (1.8-2.4) H 2.3 MG/DL (1.8-2.4) Ferritin 1575 NG/ML (8-388) H Total Bilirubin 0.3 MG/DL (0.2-1.0) 0.4 MG/DL (0.2-1.0) Aspartate Amino Transf (AST/SGOT) 19 U/L (15-37) 20 U/L (15-37) Alanine Aminotransferase (ALT/SGPT) 42 U/L (12-78) 35 U/L (12-78) Alkaline Phosphatase 173 U/L (46-116) H 141 U/L (46-116) H Lactate Dehydrogenase 232 U/L (81-234) Total Creatine Kinase 86 U/L (26-308) 110 U/L (26-308) Creatine Kinase MB 0.5 NG/ML (0.0-3.6) Creatine Kinase MB Relative Index 0.5 Troponin I 0.002 ng/mL (0.000-0.056) 0.027 ng/mL (0.000-0.056) C-Reactive Protein, Quantitative > 70.0 mg/dL (0.00-0.90) H Pro-B-Type Natriuretic Peptide 894 pg/mL (0-125) H Total Protein 8.2 G/DL (6.4-8.2) 7.1 G/DL (6.4-8.2) Albumin 1.7 G/DL (3.4-5.0) L 1.4 G/DL (3.4-5.0) L Globulin 6.5 g/dL 5.7 g/dL Albumin/Globulin Ratio 0.3 (1.0-2.7) L 0.2 (1.0-2.7) L Lipase 147 U/L (73-393) Urine Color Pale yellow Urine Appearance Clear Urine pH 6.5 (4.5-8.0) Urine Specific [place] 1.010 (1.005-1.035) Urine Protein 2+ (NEGATIVE) H Urine Glucose (UA) Negative (NEGATIVE) Urine Ketones Negative (NEGATIVE) Urine Blood 3+ (NEGATIVE) H Urine Nitrite Negative (NEGATIVE) Urine Bilirubin Negative (NEGATIVE) Urine Urobilinogen Normal MG/DL (0.0-1.0) Urine Leukocyte Esterase 2+ (NEGATIVE) H Urine RBC 5-10 /HPF (0 - 2) H Urine WBC 10-15 /HPF (0 - 2) H Urine Squamous Epithelial Cells Few /LPF (NONE/OCC) Urine Calcium Oxalate Crystals Few /LPF (NONE) Urine Bacteria Few /HPF (NONE) Metamyelocytes % 1 % (0-0) H Myelocytes % 2 % (0-0) H Nucleated Red Blood Cells 3 /100 WBC Hypochromasia 2+ Anisocytosis 2+ Uric Acid 4.3 MG/DL (2.6-7.2) Test 03/11/20 08:22 03/11/20 09:43 Arterial Blood pH 7.433 (7.350-7.450) Arterial Blood Partial Pressure CO2 38.0 mmHg (35.0-45.0) Arterial Blood Partial Pressure O2 419.0 mmHg (75.0-100.0) H Arterial Blood HCO3 24.8 mmol/L (22.0-26.0) Arterial Blood Oxygen Saturation 99.1 % (95-100) Arterial Blood Base Excess 0.6 (-2-2) Mukul Test Positive Urine Color Yellow Urine Appearance Slightly cloudy Urine pH 5 (4.5-8.0) Urine Specific [place] 1.005 (1.005-1.035) Urine Protein 2+ (NEGATIVE) H Urine Glucose (UA) Negative (NEGATIVE) Urine Ketones 1+ (NEGATIVE) H Urine Blood 2+ (NEGATIVE) H Urine Nitrite Negative (NEGATIVE) Urine Bilirubin Negative (NEGATIVE) Urine Urobilinogen Normal MG/DL (0.0-1.0) Urine Leukocyte Esterase 3+ (NEGATIVE) H Urine RBC 0-2 /HPF (0 - 2) Urine WBC 15-20 /HPF (0 - 2) H Urine Squamous Epithelial Cells None /LPF (NONE/OCC) Urine Bacteria Moderate /HPF (NONE) H Urine Eosinophils None seen (NONE SEEN) Urine Random Sodium < 20 mmol/L (20-110) L Urine Potassium Timed 26 mmol/L (12-62) Microbiology Date/Time Source Procedure Growth Status 03/11/20 00:59 Nasopharynx SARS-CoV-2 RdRp Gene Assay - Final Complete Height (Feet): 5 Height (Inches): 5.00 Weight (Pounds): 147 Medications Current Medications Medications (Trade) Dose Ordered Sig/Zaki Route PRN Reason Start Time Stop Time Status Last Admin Dose Admin Acetaminophen (Tylenol) 650 mg Q6H PRN GT Temp >100.5, Mild Pain 03/11/20 06:30 04/10/20 06:29 03/11/20 07:58 Acetaminophen/ Codeine Phosphate (Tylenol #3) 1 tab Q6H PRN GT For Mod-Severe Pain 03/11/20 06:30 03/18/20 06:29 Allopurinol (Zyloprim) 100 mg DAILY GT 03/11/20 09:00 04/10/20 08:59 03/11/20 08:07 Amlodipine Besylate (Norvasc) 10 mg DAILY GT 03/11/20 09:00 04/10/20 08:59 03/11/20 08:07 Aspirin (ASA) 81 mg DAILY GT 03/11/20 09:00 04/25/20 08:59 03/11/20 08:07 Cefepime HCl 1 gm/ Dextrose 55 ml @ 110 mls/hr Q24H IVPB 03/12/20 02:00 03/19/20 01:59 Famotidine (Pepcid) 20 mg DAILY GT 03/11/20 09:00 06/09/20 08:59 03/11/20 08:07 Heparin Sodium (Porcine) (Heparin 5000 units/ml) 5,000 units EVERY 12 HOURS SUBQ 03/11/20 09:00 04/25/20 08:59 03/11/20 08:08 Ondansetron HCl (Zofran) 4 mg Q4H PRN IVP Nausea & Vomiting 03/11/20 06:30 04/10/20 06:29 Sodium 1,000 ml @ 75 mls/hr [id number] IV 03/11/20 07:30 04/10/20 07:29 03/11/20 08:00 Vancomycin HCl ([facility] pharmacy to dose) 1 ea DAILY PRN MISC Per rx protocol 03/11/20 06:30 04/10/20 06:29 Vancomycin HCl 1 gm/Sodium Chloride 275 ml @ 183.708 mls/hr Q24H IVPB 03/12/20 03:00 03/17/20 02:59 Assessment/Plan Problem List: (1) Hypernatremia ICD Codes: E87.0 - Hyperosmolality and hypernatremia SNOMED: 991560403 (2) Sepsis ICD Codes: A41.9 - Sepsis, unspecified organism SNOMED: 34930714 (3) UTI (urinary tract infection) ICD Codes: N39.0 - Urinary tract infection, site not specified SNOMED: 84414635 (4) Stage 4 decubitus ulcer Assessment & Plan: Stage 4 ulcer on admission. macerated edges. serous drainage. foul odor. no active infection Tx plan: wash with NS. 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 CURRENT TF:Glucerna 1.2 @ 45ml/hr x 24 hrs ENTERAL NUTRITION RECOMMENDATIONS: Glucerna 1.2 @ 60ml/hr x 24 hrs to provide 1440ml, 1728kcal, 86g prot, 1159ml free water * Increase goal rate to 60ml/hr x 24 hrs to meet 100% est kcal/prot needs -> 1.9g prot/kg * HOB over 30 degrees/ water flush per MD * add Shen BID ADDITIONAL RECOMMENDATIONS: * Per SNF: HT=64" and CH=832# vs EMR wt of 147lbs -> rec daily calibrated bedscale wt * Wound healing: TF rec @ goal will provide 100% RDI Vit C 500mg BID, ZnSO4 220gm QD x 10 days Shen BID via PEG * Monitor BGs, consider NISS: h/o DM * Monitor lytes, replete as needed ICD Codes: L89.94 - Pressure ulcer of unspecified site, stage 4 SNOMED: 721189528 (5) Chronic respiratory failure requiring continuous mechanical ventilation through tracheostomy ICD Codes: J96.10 - Chronic respiratory failure, unspecified whether with hypoxia or hypercapnia; Z93.0 - Tracheostomy status; Z99.11 - Dependence on respirator [ventilator] status SNOMED: 30504693, 994356581, 826017864 (6) History of intracranial hemorrhage ICD Codes: Z86.79 - Personal history of other diseases of the circulatory syst em SNOMED: 45116931338578129 (7) Idiopathic obstructive hydrocephalus ICD Codes: G91.1 - Obstructive hydrocephalus SNOMED: 06390205, 466007391 (8) Gout ICD Codes: M10.9 - Gout, unspecified SNOMED: 69819366 (9) Diabetes mellitus ICD Codes: E11.9 - Type 2 diabetes mellitus without complications SNOMED: 22168853 (10) Parkinson's disease dementia ICD Codes: G20 - Parkinson's disease; F02.80 - Dementia in other diseases c lassified elsewhere without behavioral disturbance SNOMED: 936400104958198 (11) Acute on chronic respiratory failure ICD Codes: J96.20 - Acute and chronic respiratory failure, unspecified whether with hypoxia or hypercapnia SNOMED: 76026079 (12) Chronic vegetative state ICD Codes: R40.3 - Persistent vegetative state SNOMED: 43201486 (13) Severe protein-calorie malnutrition ICD Codes: E43 - Unspecified severe protein-calorie malnutrition SNOMED: 821300616, 217344010, 155759385 Chris Hunter Mar 11, 2020 14:58
--- NOTE | 2020-03-11 15:00 | NUR ---
NURSE NOTES: Pt was able to follow a simple command when ask to "squeeze my hand". Sputum culture collected and sent down to the lab. No distress noted.
--- NOTE | 2020-03-11 17:00 | NUR ---
NURSE NOTES: Pt fully cleaned and linens changed. No BM noted; OB stool yet to be collected. Will pass on to next nurse.
[2020-03-11] MEDS: Tylenol #3 tab (300mg/30mg) GT PRN (17:27)
--- NOTE | 2020-03-11 17:30 | NUR ---
NURSE NOTES: Pt able to nod head to simple 'yes or no' questions. After cleaning and turning, Pt was asked if she had pain. Pt nodded yes. When asked if the pain was from the sacral wound, she nodded yes. Tylenol #3 given via [employer]. Will continue to monitor.
--- NOTE | 2020-03-11 18:05 | NUR ---
NURSE NOTES: Dr Barajas at bedside assessing pt. Updated him on pt's current condition.
--- NOTE | 2020-03-11 18:11 | History & Physical ---
History and Physical History & Physicial Dictated for Int Med-DR Lutz no. [id number]. Piyush Barajas MD Mar 11, 2020 18:11
--- NOTE | 2020-03-11 18:50 | NUR ---
RESPIRATORY NOTE: Received pt on AC 16, 400VT, 70%, PEEP +5. Pt is trach-dependent w/ a cuffed, Portex 7 tube. Pt disoriented. B/S estrella. rhonchi, sxn small amounts of thick, granado-yellow secretions. FiO2 titrated to 50%, SpO2 remains at 99-100%. Vent plugged into red outlet, ambubag at bedside. Pt in no apparent distress at this time. Will continue to monitor pt.
--- NOTE | 2020-03-11 18:50 | NUR ---
NURSE NOTES: Received report from ADILENE Christy. Patient arrived to unit in stable condition. Patient is on trach to vent, Portex 7, AC 16, tidal volume 400, FiO2 70 %, PEEP 5, SpO2 100% patient tolerating. Patient nonverbal, observed no presence of pain or discomfort at this time. Per report patient is hypernatremic and to have continuous tap water drip via G-tube at 50 ml/hr x 24 hours or otherwise instructed by Dr. Matta. Patient also noted with hemoglobin level of 7.2 and D-Dimer 2.71, per report, Dr. Matta is aware and gave no new orders at this time. Patient noted with suprapubic catheter 12 fr, per report patient admitted with. Bed is in lowest position, brakes engaged. Call light is kept within easy reach. Will continue to monitor patient.
--- NOTE | 2020-03-11 18:55 | NUR ---
TRANSFER TO FLOOR: Patient transferred to SDU RM 234, per Dr Matta, accompanied by RT. Report and medications given to ADILENE Noonan. Pt had no belongings. Pt is stable at this time.
--- NOTE | 2020-03-11 19:15 | Consultation ---
DATE OF CONSULTATION: 03/11/2020 REFERRING PHYSICIAN: Patti Matta M.D. REASON FOR CONSULTATION: Evaluation of the patient for sepsis, possible pneumonia, antibiotic management. HISTORY OF PRESENT ILLNESS: The patient is a 74-year-old female with multiple medical problems as listed below, who was brought to this medical center due to respiratory distress and hypoxemia. The patient was admitted to the ICU. The patient is on the vent with FiO2 of 70%. The patient is not on any pressors at the time of my visit. The patient has been started on IV antibiotics for sepsis. At the time of my evaluation, the patient has a white count of 23.5. Infectious disease consultation has been requested for further evaluation of the patient and antibiotic management. PAST MEDICAL HISTORY: 1. Parkinson disease. 2. History of CVA. 3. Hypertension. 4. Vent-dependent respiratory failure, status post trach and PEG, status post suprapubic catheter. 5. History of gout. 6. History of diabetes. ALLERGIES: No known drug allergies. SOCIAL HISTORY: The patient lives in a shelter. FAMILY HISTORY: Unavailable. REVIEW OF SYSTEMS: Unobtainable. MEDICATIONS: IV vancomycin and cefepime. PHYSICAL EXAMINATION: VITAL SIGNS: Temperature 101.2, pulse 100, respiratory rate 23, blood pressure 95/59. HEENT: Mild pale conjunctivae. No icterus. NECK: Trach in place. CHEST: Bilateral air expansion. Coarse breathing sounds. HEART: S1, S2. ABDOMEN: PEG tube present. No organomegaly. Suprapubic catheter present. SKIN: The patient has multiple decubitus ulcers of lower extremity and also stage IV sacral decubitus ulcer, not grossly infected. NEUROLOGIC: Nonverbal. LABORATORY DATA: White blood cells 23.5, hemoglobin 9, platelets 473. UA shows 15-20 white blood cells. BUN 57, creatinine 1.1. ALT, AST are unremarkable. Alkaline phosphatase 141. SARS COVID negative x1 (the patient had one COVID test in the shelter that was negative). Chest x-ray, left lower lung infiltrate. ASSESSMENT: The patient is a 74-year-old female with: 1. Sepsis. 2. Leukocytosis. 3. Fever. 4. Left lower lung infiltrate. PLAN: 1. We will put the patient on vancomycin and cefepime. 2. Monitor CBC. 3. Monitor BMP. 4. Monitor cultures (blood, urine, sputum). 5. Monitor chest x-ray. 6. If the patient's white blood cells do not improve significantly, we may have to do a CT scan of the abdomen for a possible intra-abdominal source. 7. Based on the patient's clinical course and labs, we will do further recommendations. 8. Continue ICU and ventilatory support. Javy Cruz M.D. DR: YARA JOB#: [id number] CC:
--- NOTE | 2020-03-11 19:26 | NUR ---
NURSE HAND-OFF REPORT: Important Events on Shift: Patient Status: Stable Diet: Glucerna 1.2 45 ml/hr on hold, currently on tap water free flush 50 ml/hr due to hypernatremia for 24 hours or otherwise instructed by Dr. Matta. Pending Orders: None Pending Results/Labs:None Pending MD notification:None Latest Vital Signs: Temperature 98.9 , Pulse 99 , B/P 102 /58 , Respiratory Rate 22 , O2 SAT 100 , Mechanical Ventilator, O2 Flow Rate . Vital Sign Comment: Stable EKG Rhythm: Sinus Tachycardia Rhythm change?: N MD Notified?: - MD Response: Latest Ochoa Fall Score: 50 Fall Risk: High Risk Safety Measures: Call light Within Reach, Bed Alarm Zone 1, Side Rails Side Rails x3, Bed position Low and Locked. Fall Precautions: Yellow Socks Door Sign Patient Fall Education Report given to ADILENE Gomez.
--- NOTE | 2020-03-11 19:30 | NUR ---
NURSE NOTES: Received report from ADILENE Noonan. Pt is resting on the bed and able to open the eyes spontaneously. Trach to Vent dependent and setting with Ac; 16. T: 400, P:5, FiO2 70% and SaO2 99-100% noted. given oral care and suction. On saw man with SR. noted BP 99 F by axillary. Keep cooling measure. Iv site intact and no sign of infiltration noted. on running with 1/2NS+KCL 20mEg @ 75cc/hr. Dressing is clean and dry on wound area. Changed position. Pt has suprapubic cath and yellowish urine urinated. Pt has G-tube and on running with Water @ 50cc/hr. Placed fall precaution. Will continue to monitor any change of condition.
--- NOTE | 2020-03-11 20:30 | History and Physical Report ---
DATE OF ADMISSION: 03/11/2020 CHIEF COMPLAINT: The patient is a 74-year-old female, chronically tracheostomy dependent, who presents with chief complaint of acute respiratory failure. HISTORY OF PRESENT ILLNESS: The patient is a resident of [facility]. The patient herself is unable to contribute to the history and physical due to mental status. Much of the history and physical is obtained from the patient's chart. According to staff at [facility], the patient began to experience respiratory distress early this morning, March 11, 2020. Pulse oximetry was found to be in the 60s. The patient was placed on 15 liters of oxygen by EMS. The patient presented to [facility]. The patient is admitted with respiratory failure to rule out pneumonia and sepsis. REVIEW OF SYSTEMS: Unable to assess secondary to the patient's mental status. PAST MEDICAL HISTORY: Significant for: 1. Intracranial hemorrhage. 2. Tracheostomy dependent. 3. Chronic obstructive pulmonary disease. 4. Diabetes type 2. 5. Parkinson disease. 6. Gout. 7. Glaucoma. 8. Sacral decubitus ulcer stage IV. PAST SURGICAL HISTORY: Significant for tracheostomy. CURRENT MEDICATIONS: 1. Allopurinol 100 mg p.o. twice daily. 2. Amantadine 100 mg p.o. twice daily. 3. Amlodipine 10 mg p.o. daily. 4. Aspirin 81 mg p.o. daily. 5. Pepcid 20 mg p.o. daily. ALLERGIES: No known drug allergies. SOCIAL HISTORY: The patient is single and is a resident of [facility]. The patient denies tobacco or alcohol use. PHYSICAL EXAMINATION: VITAL SIGNS: Temperature febrile at 101.2 degrees Fahrenheit, pulse 123, respiratory rate 26, blood pressure 98/65. GENERAL: The patient is a thin-appearing female who is intubated and nonverbal. HEENT: Eyes, pupils are equal and responsive to light and accommodation. Extraocular movements are intact. NECK: Supple without lymphadenopathy. Tracheostomy is in place. CHEST: Diffuse wheezes bilaterally without rhonchi. CARDIOVASCULAR: Tachycardic, regular rhythm. S1, S2 are normal without murmurs, rubs, or gallops. ABDOMEN: Soft, nontender, and nondistended. Positive bowel sounds. No evidence of hepatosplenomegaly. Currently, no rebound or guarding noted. EXTREMITIES: Negative for clubbing, cyanosis, or edema. RECTAL/GENITAL: Not performed. NEUROLOGIC: Unable to assess. A chest x-ray revealed left lower lobe consolidation consistent with pneumonia. LABORATORY STUDIES: WBC 22.5, hemoglobin 9.3, hematocrit 38.7, platelets 473,000. Sodium 162, potassium 3.9, chloride 124, CO2 33, BUN 65, creatinine 1.3, glucose 182. Urinalysis revealed 2+ protein, 3+ blood, 2+ leukocyte esterase with 10-15 wbc's. Blood gases reported pH 7.433, pCO2 38, pO2 . Bicarb 24.8. Oxygen saturation 99.1, base excess positive 0.6. ASSESSMENT: This is a 74-year-old female. 1. Left lower lobe pneumonia. 2. Respiratory failure. 3. Hypernatremia. 4. Renal failure. 5. Hypoxemia. 6. Tracheostomy dependence. 7. Chronic obstructive pulmonary disease. 8. Diabetes type 2. 9. Parkinson disease. 10. Gout. 11. Glaucoma. 12. Sacral decubitus ulcer stage IV. 13. History of intracranial hemorrhage. 14. Hydrocephalus. TREATMENT: 1. Left lower lobe pneumonia/respiratory failure. A pulmonary consultation has been obtained with Dr. Patti Matta. The patient has been placed empirically on vancomycin and cefepime. An infectious disease consultation is pending with Dr. Cruz. We will follow recommendations of Infectious Disease and Pulmonary. 2. Hypernatremia. The patient is currently receiving intravenous fluids. Hypernatremia may be secondary to renal failure versus dehydration. A nephrology consultation has been obtained with Dr. Huntley. 3. Renal failure due to above. A nephrology consultation has been obtained with Dr. Huntley. 4. Tracheostomy dependence. 5. Chronic obstructive pulmonary disease. 6. Diabetes type 2. NovoLog sliding scale has been instituted. 7. Parkinson disease. 8. Gout. Continue allopurinol as above. 9. Glaucoma. 10. Sacral decubitus ulcer stage IV. A general surgery consultation has been obtained with Dr. Chris Hunter. 11. History of intracranial hemorrhage. Piyush Barajas M.D. DR: BING JOB#: [id number] CC:
--- NOTE | 2020-03-11 21:00 | NUR ---
NURSE NOTES: Pt is resting on the bed and no sign of acute distress noted. RT decrease FiO2 50% and Sao2 95-96% noted. Will continue to monitor any change of condition.
[2020-03-12] VITALS: BP 110/75
--- NOTE | 2020-03-12 01:20 | NUR ---
NURSE HAND-OFF REPORT: Latest Vital Signs: Temperature 98.4 , Pulse 93 , B/P 110 /75 , Respiratory Rate 22 , O2 SAT 100 , Mechanical Ventilator, O2 Flow Rate . EKG Rhythm: Sinus Rhythm Rhythm change?: N Latest Ochoa Fall Score: 50 Fall Risk: High Risk Safety Measures: Call light Within Reach, Bed Alarm Zone 1, Side Rails Side Rails x3, Bed position Low and Locked. Fall Precautions: Yellow Socks Door Sign Patient Fall Education Report given to ADILENE Roldan. Pt is sleeping on the bed and no sign of acute distress noted.
[2020-03-12] MEDS: Cefepime HCl 1 GM in D5W 55 ML IVPB SCH (01:33)
--- NOTE | 2020-03-12 01:50 | NUR ---
NURSE NOTES: Report received from ADILENE Gomez. Observed pt lying in the bed, sleeping, arousable. ST with HR of 110 noted. Tolerating current vent setting, AC 16/400/50%/peep5. GT intact, running tap water at 50cc/hr. IV on R AC 18G, asymptomatic. L FA 24G, asymptomatic. R H 22G, asymptomatic, running 1/2 NS with 20meq KCL at 75cc/hr. Bed in the lowest position. Side rails up x3. Will continue to monitor.
--- NOTE | 2020-03-12 03:00 | NUR ---
NURSE NOTES: Pt found on the floor. CLINICAL PHYSICIAN ASSISTANT called. Natalia checked, no signs of AMS. Vital signs, BP 119/76, HR 57, O2 98%. Left a message to . Head CT ordered per protocol. Will initiate post fall intervention. will continue to monitor. Addendum: 03/12/20 at 0402 by Kina Anderson RN wrong pt
--- NOTE | 2020-03-12 03:25 | NUR ---
NURSE NOTES: Left a message to , awaiting for call back. Pt still agitated, punching side rails, Vitals stable Addendum: 03/12/20 at 0402 by Kina Anderson RN wrong pt
[2020-03-12] MEDS: Vancomycin 1 GM in NS 275 ML IVPB SCH (03:33)
[2020-03-12 04:00] VITALS: BP 111/65
[2020-03-12] MEDS: Acetaminophen 650mg/20.3ml GT PRN ×2 (04:25→21:22)
--- NOTE | 2020-03-12 04:25 | NUR ---
NURSE NOTES: T of 100 noted, PRN given. Will continue to monitor. ST with HR of 120s noted. Tolerating current vent setting, no sob noted, saturating at 96%. Will continue to monitor.
[2020-03-12 05:27] LABS: HEMATOCRIT 22.3 % (37.0-47.0); MEAN CORPUSCULAR VOLUME 93 FL (80-99); PLATELET COUNT 395 K/UL (150-450); RED BLOOD COUNT 2.41 M/UL (4.20-5.40); RED CELL DISTRIBUTION WIDTH 18.7 % (11.6-14.8)
[2020-03-12 05:33] LABS: HEMOGLOBIN 6.4 G/DL (12.0-16.0); WHITE BLOOD COUNT 26.2 K/UL (4.8-10.8)
[2020-03-12 05:39] LABS: INR 1.1 (0.9-1.1)
[2020-03-12 06:07] LABS: ALANINE AMINOTRANSFERASE 30 U/L (12-78); ALBUMIN 1.4 G/DL (3.4-5.0); ALBUMIN/GLOBULIN RATIO 0.3 (1.0-2.7); ALKALINE PHOSPHATASE 139 U/L (46-116); ANION GAP 9 mmol/L (5-15); ASPARTATE AMINO TRANSFERASE 18 U/L (15-37); BILIRUBIN,TOTAL 0.3 MG/DL (0.2-1.0); BLOOD UREA NITROGEN 39 mg/dL (7-18); CARBON DIOXIDE 26 MMOL/L (21-32); CHLORIDE 122 MMOL/L (98-107); PHOSPHORUS 4.1 MG/DL (2.5-4.9); POTASSIUM 4.4 MMOL/L (3.5-5.1); SODIUM 157 MMOL/L (136-145)
[2020-03-12 06:23] LABS: LACTATE DEHYDROGENASE 221 U/L (81-234)
--- NOTE | 2020-03-12 06:44 | NUR ---
NURSE NOTES: Left a message to Dr. Matta regarding hgb and Na. Left message to Dr. Rogers regarding Blood culture result and MRSA swab result. Will continue to monitor.
[2020-03-12 07:14] LABS: % IRON SATURATION 6 % (15-50); IRON 9 ug/dL (50-175); TOTAL IRON BINDING CAPACITY 158 ug/dL (250-450)
--- NOTE | 2020-03-12 07:48 | NUR ---
NURSE HAND-OFF REPORT: Important Events on Shift: Fever, T100.0 Patient Status: No other distress noted. Diet: On hold per MD order Pending Orders: hgb, feeding Pending Results/Labs: MRSA, Blood culture result Pending MD notification:[] Latest Vital Signs: Temperature 99.6 , Pulse 91 , B/P 111 /65 , Respiratory Rate 20 , O2 SAT 100 , Mechanical Ventilator, O2 Flow Rate . Vital Sign Comment: [] EKG Rhythm: Sinus Tachycardia Rhythm change?: N MD Notified?: - MD Response: Latest Ochoa Fall Score: 50 Fall Risk: High Risk Safety Measures: Call light Within Reach, Bed Alarm Zone 1, Side Rails Side Rails x3, Bed position Low and Locked. Fall Precautions: Yellow Socks Door Sign Patient Fall Education Report given to ADILENE Jones.
--- NOTE | 2020-03-12 07:50 | NUR ---
NURSE NOTES: pt non verbal in bed. pt is on trach. Pt. is on radiation monitor, no signs of cardiac distress. Bed is locked and in lowest position. Call light is within reach. Will continue to monitor pt. Notified doct. Matta about pt latest labs and if he wants to continue water flushes. doctor Dada about positive blood cultures.
[2020-03-12 08:00] VITALS: BP 148/79
--- NOTE | 2020-03-12 08:39 | Diagnostic Imaging Report ---
EXAM: XR Chest, 1 View CLINICAL HISTORY: DYSPNEA TECHNIQUE: Frontal view of the chest. COMPARISON: Chest radiograph March 11, 2020. FINDINGS/IMPRESSION: Midline tracheostomy. Small left pleural effusion. Hyperinflation with flattening of the diaphragms and emphysema, consistent with COPD. No lobar infiltrate. Cardiomegaly. Calcified aorta.
[2020-03-12] MEDS: Allopurinol 100mg Tab GT SCH (09:00)
[2020-03-12] MEDS: Aspirin Baby 81mg GT SCH (09:00)
[2020-03-12] MEDS: Heparin 5000 units/ml inj SUBQ SCH ×2 (09:00→21:00)
[2020-03-12] MEDS: 1/2NS w/KCl 20mEq 1000ml 1,000 ML IV SCH (10:32)
--- NOTE | 2020-03-12 10:58 | NUR ---
NURSE NOTES: pt hgb is low, doctor Sigrid ordered 2 units of blood. L/M for Ieesha at [phone] to get consent, waiting for response.
--- NOTE | 2020-03-12 11:06 | NUR ---
NURSE NOTES: pt family member called back to give consent for blood transfusion, Ieesha/daughter states that she does not recall her mom getting a blood transfusion before so she is not aware of any allergic reaction.
--- NOTE | 2020-03-12 11:39 | NUR ---
CASE MANAGEMENT:INITIAL REVIEW 74 YR OLD FEMALE BIBA FROM [facility] CC;DYSPNEA. RESPIRATORY DISTRESS. SI;SEPTIC SHOCK. RESPIRATORY FAILURE. HYPERNATREMIA. UTI. PNEUMONIA. T 97.3 P 149 R 37 BP 165/98 02 85% TRAC/VENT FIO2 @ 100% WBC 28.0 H/H 7.2/24.4 NA 163 CL 124 CO2 33 BUN 65 BG 182 CA 10.9 MAG 2.6 FERRITIN 1575 ALP 173 CRP >70.0 ALB 1.7 PT 11.8 D-DIMER 2.71 UA+ PROTEIN, KETONES, BLOOD, LEUKOCYTE ESTERASE, RBC, WBC, BACTERIA BLOOD CX PRELIM (+) GPC IN CLUSTERS RAPID COVID ~ NEGATIVE CXR ~ Probable left lower lung pneumonia. IS;IVF NS VANCOMYCIN IV CEFEPIME IF AMANTADINE GT ONCE PEPCID GT ONCE ADMITTED TO [facility] 03/11/20 @ 0229 [facility] STATUS DCP;FROM [facility]
[2020-03-12 12:00] VITALS: BP 123/89
--- NOTE | 2020-03-12 13:33 | Consultation ---
Consult Note Consult Note I am asked to evaluate the patient at the request of Dr. Hernandez, for fluid and electrolyte management. 74-year-old female, history of intracranial hemorrhage, respiratory failure, tracheostomy not ventilator dependent here with hypoxia and tachycardia. [facility] at a [facility] and per the [facility] report the patient was found to be hypoxic with an oxygen saturation of 65% on room air. He was immediately placed on oxygen via a bag valve and paramedics were immediately called. When they arrived the patient was still hypoxic and was maintained on 15 L of oxygen. They were unable to establish an IV in route. EKG showed sinus tachycardia with a heart rate in the 150s. Patient is nonverbal and alert and oriented x0 at her baseline and is unable to provide history or participate in physical examination or review of systems secondary to her baseline altered mental status. 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 HEAD AND NECK: No JVD. Trach connected to vent LUNGS: Coarse rhonchi. She is status post tracheostomy. CARDIOVASCULAR: Regular S1 and S2 with no gallop or rub. Status post PEG. EXTREMITIES: 1+ pitting edema with sacral decubitus. LABORATORY AND DIAGNOSTIC DATA: Labs show initial white count was 26.2 and today is 18.7, hemoglobin 9.5, hematocrit 30, and platelet count is 439. Sodium is 140, potassium 3.7, BUN of 11, creatinine 0.8, and glucose of 179. Vancomycin level is 11.2. Assessment/Plan Azotemia and hypernatremia indicative of severe dehydration and free water deficit Acute on chronic respiratory failure, on mechanical ventilation Severe underlying anemia Sepsis Stage IV decubitus Idiopathic obstructive hydrocephalus, history of intracranial hemorrhage Diabetes mellitus Parkinson's disease, dementia Protein calorie malnutrition D5W at 75 cc an hour Monitor electrolytes Monitor hemoglobin hematocrit Gastric support Consider transfusion Continue per orders Parameters for blood pressure medication Antibiotics per ID Mathew Huntley MD Mar 12, 2020 13:33
--- NOTE | 2020-03-12 15:05 | Internal Med Progress Note ---
Subjective Date of Service: Mar 12, 2020 Physician Name Piyush Barajas Attending Physician Jesus Lutz MD Current Medications Medications (Trade) Dose Ordered Sig/Zaki Route PRN Reason Start Time Stop Time Status Last Admin Dose Admin Acetaminophen (Tylenol) 650 mg Q6H PRN GT Temp >100.5, Mild Pain 03/11/20 06:30 04/10/20 06:29 03/12/20 04:25 Acetaminophen/ Codeine Phosphate (Tylenol #3) 1 tab Q6H PRN GT For Mod-Severe Pain 03/11/20 06:30 03/18/20 06:29 03/11/20 17:27 Amlodipine Besylate (Norvasc) 10 mg DAILY GT 03/11/20 09:00 04/10/20 08:59 03/12/20 09:00 Aspirin (ASA) 81 mg DAILY GT 03/11/20 09:00 04/25/20 08:59 03/12/20 09:00 Cefepime HCl 1 gm/ Dextrose 55 ml @ 110 mls/hr Q24H IVPB 03/12/20 02:00 03/19/20 01:59 03/12/20 01:33 Dextrose 1,000 ml @ 75 mls/hr [id number] IV 03/12/20 13:45 04/11/20 13:44 03/12/20 14:39 Famotidine (Pepcid) 40 mg BID GT 03/12/20 18:00 06/09/20 08:59 Heparin Sodium (Porcine) (Heparin 5000 units/ml) 5,000 units EVERY 12 HOURS SUBQ 03/11/20 09:00 04/25/20 08:59 03/11/20 08:08 Ondansetron HCl (Zofran) 4 mg Q4H PRN IVP Nausea & Vomiting 03/11/20 06:30 04/10/20 06:29 Vancomycin HCl (Vanco pharmacy to dose) 1 ea DAILY PRN MISC Per rx protocol 03/11/20 06:30 04/10/20 06:29 Vancomycin HCl 1 gm/Sodium Chloride 275 ml @ 183.708 mls/hr Q24H IVPB 03/12/20 03:00 03/17/20 02:59 03/12/20 03:33 Allergies: Coded Allergies: No Known Allergies (Unverified , 03/11/20) ROS Limited/Unobtainable: Yes Subjective 74 YO F trach dependent admitted with hypoxic respiratory failure. Now pneumonia and sepsis. Cover for Int Med-Dr Lutz. Step down unit Objective Last Vital Signs Date Time Temp Pulse Resp B/P (MAP) Pulse Ox O2 Delivery O2 Flow Rate FiO2 03/12/20 13:20 89 26 50 03/12/20 12:05 Mechanical Ventilator Mechanical Ventilator 03/12/20 12:00 97.5 123/89 (100) 100 Laboratory Tests Test 03/12/20 03:10 03/12/20 07:56 White Blood Count 26.2 K/UL (4.8-10.8) *H Red Blood Count 2.41 M/UL (4.20-5.40) L Hemoglobin 6.4 G/DL (12.0-16.0) *L Hematocrit 22.3 % (37.0-47.0) L Mean Corpuscular Volume 93 FL (80-99) Mean Corpuscular Hemoglobin 26.7 PG (27.0-31.0) L Mean Corpuscular Hemoglobin Concent 28.8 G/DL (32.0-36.0) L Red Cell Distribution Width 18.7 % (11.6-14.8) H Platelet Count 395 K/UL (150-450) Mean Platelet Volume 8.4 FL (6.5-10.1) Neutrophils (%) (Auto) % (45.0-75.0) Lymphocytes (%) (Auto) % (20.0-45.0) Monocytes (%) (Auto) % (1.0-10.0) Eosinophils (%) (Auto) % (0.0-3.0) Basophils (%) (Auto) % (0.0-2.0) Differential Total Cells Counted 100 Neutrophils % (Manual) 74 % (45-75) Lymphocytes % (Manual) 8 % (20-45) L Monocytes % (Manual) 7 % (1-10) Eosinophils % (Manual) 8 % (0-3) H Basophils % (Manual) 0 % (0-2) Band Neutrophils 3 % (0-8) Nucleated Red Blood Cells 2 /100 WBC Platelet Estimate Adequate Platelet Morphology Normal Polychromasia 1+ Hypochromasia 2+ Anisocytosis 1+ Erythrocyte Sedimentation Rate 144 MM/HR (0-30) H Reticulocyte Count 1.0 % (0.5-2.0) Prothrombin Time 11.7 SEC (9.30-11.50) H Prothromb Time International Ratio 1.1 (0.9-1.1) Activated Partial Thromboplast Time 32 SEC (23-33) Sodium Level 157 MMOL/L (136-145) H Potassium Level 4.4 MMOL/L (3.5-5.1) Chloride Level 122 MMOL/L (98-107) H Carbon Dioxide Level 26 MMOL/L (21-32) Anion Gap 9 mmol/L (5-15) Blood Urea Nitrogen 39 mg/dL (7-18) H Creatinine 1.0 MG/DL (0.55-1.30) Estimat Glomerular Filtration Rate > 60 mL/min (>60) Glucose Level 61 MG/DL (74-106) L Calcium Level 10.0 MG/DL (8.5-10.1) Phosphorus Level 4.1 MG/DL (2.5-4.9) Magnesium Level 2.1 MG/DL (1.8-2.4) Iron Level 9 ug/dL (50-175) L Total Iron Binding Capacity 158 ug/dL (250-450) L Percent Iron Saturation 6 % (15-50) L Unsaturated Iron Binding 149 ug/dL (112-346) Total Bilirubin 0.3 MG/DL (0.2-1.0) Aspartate Amino Transf (AST/SGOT) 18 U/L (15-37) Alanine Aminotransferase (ALT/SGPT) 30 U/L (12-78) Alkaline Phosphatase 139 U/L (46-116) H Lactate Dehydrogenase 221 U/L (81-234) C-Reactive Protein, Quantitative 38.6 mg/dL (0.00-0.90) H Total Protein 6.9 G/DL (6.4-8.2) Albumin 1.4 G/DL (3.4-5.0) L Globulin 5.5 g/dL Albumin/Globulin Ratio 0.3 (1.0-2.7) L Carcinoembryonic Antigen Pending Vitamin B12 Level 560 PG/ML (193-986) Folate 42.0 NG/ML (8.6-58.9) Arterial Blood pH 7.389 (7.350-7.450) Arterial Blood Partial Pressure CO2 38.0 mmHg (35.0-45.0) Arterial Blood Partial Pressure O2 184.1 mmHg (75.0-100.0) H Arterial Blood HCO3 22.4 mmol/L (22.0-26.0) Arterial Blood Oxygen Saturation 99.4 % (95-100) Arterial Blood Base Excess -2.3 (-2-2) L Mukul Test Positive Microbiology Date/Time Source Procedure Growth Status 03/11/20 14:00 Sputum Gram Stain - Final Resulted 03/11/20 14:00 Sputum Sputum Culture Pending Resulted 03/11/20 00:59 Nasal Nares MRSA Culture - Final Staphylococcus Aureus - Mrsa Complete 03/11/20 00:59 Nasopharynx SARS-CoV-2 RdRp Gene Assay - Final Complete 03/11/20 00:45 Blood Blood Culture - Preliminary Resulted Intake and Output 03/11/20 03/12/20 19:00 07:00 Intake Total 1645 ml 1435 ml Output Total 360 ml 730 ml Balance 1285 ml 705 ml Free Water 150 ml IV Total 825 ml 735 ml Tube Feeding 560 ml 550 ml Other 260 ml Output Urine Total 360 ml 730 ml Objective PHYSICAL EXAMINATION: VITAL SIGNS: Temperature febrile at 101.2 degrees Fahrenheit, pulse 123, respiratory rate 26, blood pressure 98/65. GENERAL: The patient is a thin-appearing female who is intubated and nonverbal. HEENT: Eyes, pupils are equal and responsive to light and accommodation. Extraocular movements are intact. NECK: Supple without lymphadenopathy. Tracheostomy is in place. CHEST: Diffuse wheezes bilaterally without rhonchi. CARDIOVASCULAR: Tachycardic, regular rhythm. S1, S2 are normal without murmurs, rubs, or gallops. ABDOMEN: Soft, nontender, and nondistended. Positive bowel sounds. No evidence of hepatosplenomegaly. Currently, no rebound or guarding noted. EXTREMITIES: Negative for clubbing, cyanosis, or edema. RECTAL/GENITAL: Not performed. NEUROLOGIC: Unable to assess. chest x-ray revealed left lower lobe consolidation consistent with pneumonia Assessment/Plan Assessment/Plan ASSESSMENT: This is a 74-year-old female. 1. Left lower lobe pneumonia. 2. Respiratory failure. 3. Hypernatremia. 4. Renal failure. 5. Hypoxemia. 6. Tracheostomy dependence. 7. Chronic obstructive pulmonary disease. 8. Diabetes type 2. 9. Parkinson disease. 10. Gout. 11. Glaucoma. 12. Sacral decubitus ulcer stage IV. 13. History of intracranial hemorrhage. 14. Hydrocephalus. 15. sepsis=gram pos cocci TREATMENT: 1. Left lower lobe pneumonia/respiratory failure/sepsis. Pulmonary consultation =Dr. Patti Matta. ABX= vancomycin and cefepime. Infectious disease=Dr. Cruz. We will follow recommendations of Infectious Disease and Pulmonary. 2. Hypernatremia. Hypernatremia may be secondary to renal failure versus dehydration. Nephrology consultation =. 3. Renal failure nephrology consultation =Dr. Huntley. 4. Tracheostomy dependence. 5. Chronic obstructive pulmonary disease. 6. Diabetes type 2. NovoLog sliding scale has been instituted. 7. Parkinson disease. 8. Gout. Continue allopurinol as above. 9. Glaucoma. 10. Sacral decubitus ulcer stage IV. A general surgery consultation has been obtained with Dr. Chris Hunter. 11. History of intracranial hemorrhage. Piyush Barajas MD Mar 12, 2020 15:05
--- NOTE | 2020-03-12 15:42 | Pulmonology Progress Note ---
Subjective ROS Limited/Unobtainable: Yes Allergies: Coded Allergies: No Known Allergies (Unverified , 03/11/20) Objective Last 24 Hour Vital Signs Date Time Temp Pulse Resp B/P (MAP) Pulse Ox O2 Delivery O2 Flow Rate FiO2 03/12/20 15:20 97 22 50 03/12/20 13:20 89 26 50 03/12/20 12:05 Mechanical Ventilator Mechanical Ventilator 03/12/20 12:00 108 03/12/20 12:00 35 03/12/20 12:00 97.5 104 20 123/89 (100) 100 03/12/20 11:00 88 18 50 03/12/20 09:00 89 148/79 03/12/20 08:46 94 19 50 03/12/20 08:30 Mechanical Ventilator Mechanical Ventilator 03/12/20 08:00 96.8 89 18 148/79 (102) 100 03/12/20 08:00 50 03/12/20 08:00 86 03/12/20 07:13 91 20 50 03/12/20 05:15 98 26 50 03/12/20 04:55 99.6 03/12/20 04:00 Mechanical Ventilator Mechanical Ventilator 03/12/20 04:00 104 03/12/20 04:00 50 03/12/20 04:00 100.0 125 22 111/65 (80) 100 03/12/20 03:36 100 03/12/20 03:20 100 20 50 03/12/20 01:08 107 25 50 03/12/20 00:00 93 03/12/20 00:00 Mechanical Ventilator Mechanical Ventilator 03/12/20 00:00 50 03/12/20 00:00 98.4 100 22 110/75 (87) 100 03/11/20 23:10 98 20 50 03/11/20 21:10 91 21 50 03/11/20 20:00 Mechanical Ventilator Mechanical Ventilator 03/11/20 20:00 116 03/11/20 20:00 70 03/11/20 20:00 99.0 82 22 113/63 (80) 100 03/11/20 18:50 98.1 92 22 103/53 (70) 100 03/11/20 18:45 99 22 50 03/11/20 18:34 114 24 102/58 (73) 100 03/11/20 18:00 106 30 95/54 (68) 100 03/11/20 17:04 104 22 70 03/11/20 17:02 121 27 110/68 (82) 100 03/11/20 16:00 Mechanical Ventilator Mechanical Ventilator 03/11/20 16:00 102 03/11/20 16:00 98.9 103 23 103/57 (72) 100 03/11/20 16:00 70 Intake and Output 03/11/20 03/12/20 19:00 07:00 Intake Total 1645 ml 1435 ml Output Total 360 ml 730 ml Balance 1285 ml 705 ml Free Water 150 ml IV Total 825 ml 735 ml Tube Feeding 560 ml 550 ml Other 260 ml Output Urine Total 360 ml 730 ml Microbiology Date/Time Source Procedure Growth Status 03/11/20 14:00 Sputum Gram Stain - Final Resulted 03/11/20 14:00 Sputum Sputum Culture Pending Resulted 03/11/20 00:59 Nasal Nares MRSA Culture - Final Staphylococcus Aureus - Mrsa Complete 03/11/20 00:59 Nasopharynx SARS-CoV-2 RdRp Gene Assay - Final Complete 03/11/20 00:45 Blood Blood Culture - Preliminary Resulted Laboratory Tests 03/12/20 03:10: White Blood Count 26.2*H, Red Blood Count 2.41L, Hemoglobin 6.4*L, Hematocrit 22.3L, Mean Corpuscular Volume 93, Mean Corpuscular Hemoglobin 26.7L, Mean Corpuscular Hemoglobin Concent 28.8L, Red Cell Distribution Width 18.7H, Platelet Count 395, Mean Platelet Volume 8.4, Neutrophils (%) (Auto) , Lymphocytes (%) (Auto) , Monocytes (%) (Auto) , Eosinophils (%) (Auto) , Basophils (%) (Auto) , Differential Total Cells Counted 100, Neutrophils % (Manual) 74, Lymphocytes % (Manual) 8L, Monocytes % (Manual) 7, Eosinophils % (Manual) 8H, Basophils % (Manual) 0, Band Neutrophils 3, Nucleated Red Blood Cells 2, Platelet Estimate Adequate, Platelet Morphology Normal, Polychromasia 1+, Hypochromasia 2+, Anisocytosis 1+, Erythrocyte Sedimentation Rate 144H, Reticulocyte Count 1.0, Prothrombin Time 11.7H, Prothromb Time International Ratio 1.1, Activated Partial Thromboplast Time 32, Sodium Level 157H, Potassium Level 4.4, Chloride Level 122H, Carbon Dioxide Level 26, Anion Gap 9, Blood Urea Nitrogen 39H, Creatinine 1.0, Estimat Glomerular Filtration Rate > 60, Glucose Level 61L, Calcium Level 10.0, Phosphorus Level 4.1, Magnesium Level 2.1, Iron Level 9L, Total Iron Binding Capacity 158L, Percent Iron Saturation 6L, Unsaturated Iron Binding 149, Total Bilirubin 0.3, Aspartate Amino Transf (AST/SGOT) 18, Alanine Aminotransferase (ALT/SGPT) 30, Alkaline Phosphatase 139H , Lactate Dehydrogenase 221, C-Reactive Protein, Quantitative 38.6H, Total Protein 6.9, Albumin 1.4L, Globulin 5.5, Albumin/Globulin Ratio 0.3L, Carcinoembryonic Antigen [Pending], Vitamin B12 Level 560, Folate 42.0 03/12/20 07:56: Arterial Blood pH 7.389, Arterial Blood Partial Pressure CO2 38.0, Arterial Blood Partial Pressure O2 184.1H, Arterial Blood HCO3 22.4, Arterial Blood Oxygen Saturation 99.4, Arterial Blood Base Excess -2.3L, Mukul Test Positive Current Medications Medications (Trade) Dose Ordered Sig/Zaki Route PRN Reason Start Time Stop Time Status Last Admin Dose Admin Acetaminophen (Tylenol) 650 mg Q6H PRN GT Temp >100.5, Mild Pain 03/11/20 06:30 04/10/20 06:29 03/12/20 04:25 Acetaminophen/ Codeine Phosphate (Tylenol #3) 1 tab Q6H PRN GT For Mod-Severe Pain 03/11/20 06:30 03/18/20 06:29 03/11/20 17:27 Amlodipine Besylate (Norvasc) 10 mg DAILY GT 03/11/20 09:00 04/10/20 08:59 03/12/20 09:00 Aspirin (ASA) 81 mg DAILY GT 03/11/20 09:00 04/25/20 08:59 03/12/20 09:00 Cefepime HCl 1 gm/ Dextrose 55 ml @ 110 mls/hr Q24H IVPB 03/12/20 02:00 03/19/20 01:59 03/12/20 01:33 Dextrose 1,000 ml @ 75 mls/hr [id number] IV 03/12/20 13:45 04/11/20 13:44 03/12/20 14:39 Famotidine (Pepcid) 40 mg BID GT 03/12/20 18:00 06/09/20 08:59 Heparin Sodium (Porcine) (Heparin 5000 units/ml) 5,000 units EVERY 12 HOURS SUBQ 03/11/20 09:00 04/25/20 08:59 03/11/20 08:08 Ondansetron HCl (Zofran) 4 mg Q4H PRN IVP Nausea & Vomiting 03/11/20 06:30 04/10/20 06:29 Vancomycin HCl (Vanco pharmacy to dose) 1 ea DAILY PRN MISC Per rx protocol 03/11/20 06:30 04/10/20 06:29 Vancomycin HCl 1 gm/Sodium Chloride 275 ml @ 183.708 mls/hr Q24H IVPB 03/12/20 03:00 03/17/20 02:59 03/12/20 03:33 Assessment/Plan Problems: (1) Acute on chronic respiratory failure (2) Sepsis (3) Chronic respiratory failure requiring continuous mechanical ventilation through tracheostomy (4) Stage 4 decubitus ulcer (5) Idiopathic obstructive hydrocephalus (6) Diabetes mellitus (7) Parkinson's disease dementia (8) History of intracranial hemorrhage Respiratory: monitor respiratory rate, adjust FIO2 Cardiac: continue to monitor HR/BP Renal: F/U I&O, keep IV fluid Infectious Disease: check cultures Gastrointestinal: continue feedings/current rate Endocrine: monitor blood sugar Neurologic: PRN Ativan, PRN Morphine Prophylaxis: Protonix Time Spent (Minutes): 30 Notes Reviewed: anatomic pathology assistant, cardio, renal Discussed with: nurses, consultants, case management associate Patti Matta MD Mar 12, 2020 15:42
--- NOTE | 2020-03-12 15:59 | Cardiology Report ---
APPROVED REPORT EKG Measurement Heart [id number] <Conclusion> Sinus tachycardia Otherwise normal ECG
[2020-03-12 16:00] VITALS: BP 96/57
--- NOTE | 2020-03-12 17:11 | Surgery Progress Note ---
Surgery Progress Note Subjective Additional Comments leukocytosis anemia ill appearing Objective Last 24 Hour Vital Signs Date Time Temp Pulse Resp B/P (MAP) Pulse Ox O2 Delivery O2 Flow Rate FiO2 03/12/20 16:00 Mechanical Ventilator Mechanical Ventilator 03/12/20 16:00 100 03/12/20 16:00 35 03/12/20 15:20 97 22 50 03/12/20 13:20 89 26 50 03/12/20 12:05 Mechanical Ventilator Mechanical Ventilator 03/12/20 12:00 108 03/12/20 12:00 35 03/12/20 12:00 97.5 104 20 123/89 (100) 100 03/12/20 11:00 88 18 50 03/12/20 09:00 89 148/79 03/12/20 08:46 94 19 50 03/12/20 08:30 Mechanical Ventilator Mechanical Ventilator 03/12/20 08:00 96.8 89 18 148/79 (102) 100 03/12/20 08:00 50 03/12/20 08:00 86 03/12/20 07:13 91 20 50 03/12/20 05:15 98 26 50 03/12/20 04:55 99.6 03/12/20 04:00 Mechanical Ventilator Mechanical Ventilator 03/12/20 04:00 104 03/12/20 04:00 50 03/12/20 04:00 100.0 125 22 111/65 (80) 100 03/12/20 03:36 100 03/12/20 03:20 100 20 50 03/12/20 01:08 107 25 50 03/12/20 00:00 93 03/12/20 00:00 Mechanical Ventilator Mechanical Ventilator 03/12/20 00:00 50 03/12/20 00:00 98.4 100 22 110/75 (87) 100 03/11/20 23:10 98 20 50 03/11/20 21:10 91 21 50 03/11/20 20:00 Mechanical Ventilator Mechanical Ventilator 03/11/20 20:00 116 03/11/20 20:00 70 03/11/20 20:00 99.0 82 22 113/63 (80) 100 03/11/20 18:50 98.1 92 22 103/53 (70) 100 03/11/20 18:45 99 22 50 03/11/20 18:34 114 24 102/58 (73) 100 03/11/20 18:00 106 30 95/54 (68) 100 I&O Intake and Output 03/11/20 03/12/20 19:00 07:00 Intake Total 1645 ml 1435 ml Output Total 360 ml 730 ml Balance 1285 ml 705 ml Free Water 150 ml IV Total 825 ml 735 ml Tube Feeding 560 ml 550 ml Other 260 ml Output Urine Total 360 ml 730 ml Dressing: saturated Cardiovascular: RSR Respiratory: decreased breath sounds Abdomen: non-tender, present bowel sounds Extremities: no tenderness, no cyanosis Laboratory Tests Test 03/12/20 03:10 03/12/20 07:56 White Blood Count 26.2 K/UL (4.8-10.8) *H Red Blood Count 2.41 M/UL (4.20-5.40) L Hemoglobin 6.4 G/DL (12.0-16.0) *L Hematocrit 22.3 % (37.0-47.0) L Mean Corpuscular Volume 93 FL (80-99) Mean Corpuscular Hemoglobin 26.7 PG (27.0-31.0) L Mean Corpuscular Hemoglobin Concent 28.8 G/DL (32.0-36.0) L Red Cell Distribution Width 18.7 % (11.6-14.8) H Platelet Count 395 K/UL (150-450) Mean Platelet Volume 8.4 FL (6.5-10.1) Neutrophils (%) (Auto) % (45.0-75.0) Lymphocytes (%) (Auto) % (20.0-45.0) Monocytes (%) (Auto) % (1.0-10.0) Eosinophils (%) (Auto) % (0.0-3.0) Basophils (%) (Auto) % (0.0-2.0) Differential Total Cells Counted 100 Neutrophils % (Manual) 74 % (45-75) Lymphocytes % (Manual) 8 % (20-45) L Monocytes % (Manual) 7 % (1-10) Eosinophils % (Manual) 8 % (0-3) H Basophils % (Manual) 0 % (0-2) Band Neutrophils 3 % (0-8) Nucleated Red Blood Cells 2 /100 WBC Platelet Estimate Adequate Platelet Morphology Normal Polychromasia 1+ Hypochromasia 2+ Anisocytosis 1+ Erythrocyte Sedimentation Rate 144 MM/HR (0-30) H Reticulocyte Count 1.0 % (0.5-2.0) Prothrombin Time 11.7 SEC (9.30-11.50) H Prothromb Time International Ratio 1.1 (0.9-1.1) Activated Partial Thromboplast Time 32 SEC (23-33) Sodium Level 157 MMOL/L (136-145) H Potassium Level 4.4 MMOL/L (3.5-5.1) Chloride Level 122 MMOL/L (98-107) H Carbon Dioxide Level 26 MMOL/L (21-32) Anion Gap 9 mmol/L (5-15) Blood Urea Nitrogen 39 mg/dL (7-18) H Creatinine 1.0 MG/DL (0.55-1.30) Estimat Glomerular Filtration Rate > 60 mL/min (>60) Glucose Level 61 MG/DL (74-106) L Calcium Level 10.0 MG/DL (8.5-10.1) Phosphorus Level 4.1 MG/DL (2.5-4.9) Magnesium Level 2.1 MG/DL (1.8-2.4) Iron Level 9 ug/dL (50-175) L Total Iron Binding Capacity 158 ug/dL (250-450) L Percent Iron Saturation 6 % (15-50) L Unsaturated Iron Binding 149 ug/dL (112-346) Total Bilirubin 0.3 MG/DL (0.2-1.0) Aspartate Amino Transf (AST/SGOT) 18 U/L (15-37) Alanine Aminotransferase (ALT/SGPT) 30 U/L (12-78) Alkaline Phosphatase 139 U/L (46-116) H Lactate Dehydrogenase 221 U/L (81-234) C-Reactive Protein, Quantitative 38.6 mg/dL (0.00-0.90) H Total Protein 6.9 G/DL (6.4-8.2) Albumin 1.4 G/DL (3.4-5.0) L Globulin 5.5 g/dL Albumin/Globulin Ratio 0.3 (1.0-2.7) L Carcinoembryonic Antigen Pending Vitamin B12 Level 560 PG/ML (193-986) Folate 42.0 NG/ML (8.6-58.9) Arterial Blood pH 7.389 (7.350-7.450) Arterial Blood Partial Pressure CO2 38.0 mmHg (35.0-45.0) Arterial Blood Partial Pressure O2 184.1 mmHg (75.0-100.0) H Arterial Blood HCO3 22.4 mmol/L (22.0-26.0) Arterial Blood Oxygen Saturation 99.4 % (95-100) Arterial Blood Base Excess -2.3 (-2-2) L Mukul Test Positive Plan Problems: (1) Hypernatremia (2) Sepsis (3) UTI (urinary tract infection) (4) Stage 4 decubitus ulcer Assessment & Plan: Stage 4 ulcer on admission. macerated edges. serous drainage. foul odor. no active infection Tx plan: wash with NS. apply therahoney gauze and dressing daily change prn saturation DAILY ESTIMATED NEEDS: Needs based on Advanced wound, critical care, underweight, [employer] TF/ 45.5kg 30-40 kcals/kg [id number] total kcals 1.5-2 g protein/kg 68-91 g total protein 30-40 mL/kg 9958-7327 total fluid mLs NUTRITION DIAGNOSIS: Increased kcal/prot needs R/T underweight status, wound healing as evidenced by pt @83% IBW w/ underweight BMI of 17.2, admitted w/ multiple wounds, including stage 4 sacral wound. CURRENT TF:Glucerna 1.2 @ 45ml/hr x 24 hrs ENTERAL NUTRITION RECOMMENDATIONS: Glucerna 1.2 @ 60ml/hr x 24 hrs to provide 1440ml, 1728kcal, 86g prot, 1159ml free water * Increase goal rate to 60ml/hr x 24 hrs to meet 100% est kcal/prot needs -> 1.9g prot/kg * HOB over 30 degrees/ water flush per MD * add Shen BID ADDITIONAL RECOMMENDATIONS: * Per SNF: HT=64" and AL=802# vs EMR wt of 147lbs -> rec daily calibrated bedscale wt * Wound healing: TF rec @ goal will provide 100% RDI Vit C 500mg BID, ZnSO4 220gm QD x 10 days Shen BID via PEG * Monitor BGs, consider NISS: h/o DM * Monitor lytes, replete as needed (5) Chronic respiratory failure requiring continuous mechanical ventilation through tracheostomy (6) History of intracranial hemorrhage (7) Idiopathic obstructive hydrocephalus (8) Gout (9) Diabetes mellitus (10) Parkinson's disease dementia (11) Acute on chronic respiratory failure (12) Chronic vegetative state (13) Severe protein-calorie malnutrition Chris Hunter Mar 12, 2020 17:11
--- NOTE | 2020-03-12 18:53 | NUR ---
RESPIRATORY NOTE: Received pt on AC 16, 400VT, 35%, PEEP +5. Pt is trach-dependent w/ a cuffed, Portex 7 tube. Pt disoriented, responds to stimuli. B/S estrella. rhonchi, sxn small amounts of thick, granado-yellow secretions. Vent plugged into red outlet, ambubag at bedside. Pt in no apparent distress at this time. Will continue to monitor pt.
--- NOTE | 2020-03-12 19:21 | NUR ---
NURSE HAND-OFF REPORT: Important Events on Shift:pt received 1 bag of blood, 2nd is infusing now. Patient Status: full code Diet: gtube feeding is held, instead 50ml/hr water flushes are running. doctor waiting for Na labs results for tomorrow Pending Orders: cbc and other am labs Pending Results/Labs: Pending MD notification: Latest Vital Signs: Temperature 97.2 , Pulse 102 , B/P 96 /57 , Respiratory Rate 27 , O2 SAT 100 , Mechanical Ventilator, O2 Flow Rate . Vital Sign Comment: EKG Rhythm: Sinus Rhythm Rhythm change?: N MD Notified?: - MD Response: Latest Ochoa Fall Score: 50 Fall Risk: High Risk Safety Measures: Call light Within Reach, Bed Alarm Zone 1, Side Rails Side Rails x3, Bed position Low and Locked. Fall Precautions: y Yellow Socks y Door Sign y Patient Fall Education Report given to Iris/RN.
--- NOTE | 2020-03-12 19:22 | NUR ---
NURSE NOTES: received pt from Jacqueline Jones RN., pt is awake and non-verbal. pt is currently receiving 2nd PRBC at this time. gambling monitor shows pt is now SR. pt has vent in place, no SOB noted., O2sat is at 95%. Gtube site intact, clean, and patent. supra cath is draining well with gravity. call light within reach. no active bleeding noted at this time. skin alternation noted and dressing sites are clean, patent, and dry. left 24hand right upper arm 18G and right hand 22G IV sites are clean, intact, and patent. will continue to monitor pt with plan of care. bed at the lowest position, side rails x 3 up, alarmed, and locked.
[2020-03-12 20:00] VITALS: BP 103/59
--- NOTE | 2020-03-12 20:00 | NUR ---
NURSE NOTES: repositioned pt. no SOB noted, no active bleeding noted. pt is getting the 2nd PRBC at this time. daughter at the bedside.call light within reach. will continue to monitor pt closely.
--- NOTE | 2020-03-12 21:20 | NUR ---
NURSE NOTES: finished blood transfusion, temp 98.9 HR 89 BP 118/72. no adverse symptom noted. daughter is at the bedside. and explained pt is just finished 2nd PRBC.
--- NOTE | 2020-03-12 23:55 | NUR ---
NURSE HAND-OFF REPORT: Important Events on Shift:[2 PRBC given, low grade fever] Patient Status: [stable] Diet: [flush 50ml/hr] Pending Orders: [n/a] Pending Results/Labs:[n/a] Pending MD notification:[n.a] Latest Vital Signs: Temperature 98.6 , Pulse 93 , B/P 103 /59 , Respiratory Rate 23 , O2 SAT 100 , Mechanical Ventilator, O2 Flow Rate . Vital Sign Comment: [stable] EKG Rhythm: Sinus Rhythm Rhythm change?: N MD Notified?: - MD Response: Latest Ochoa Fall Score: 50 Fall Risk: High Risk Safety Measures: Call light Within Reach, Bed Alarm Zone 1, Side Rails Side Rails x3, Bed position Low and Locked. Fall Precautions: Yellow Socks Door Sign Patient Fall Education Report given to [Saran Hsieh RN,.].
[2020-03-13] VITALS: BP 132/75
--- NOTE | 2020-03-13 | NUR ---
NURSE NOTES: received pt from Ann-Marie Hagen RN., pt opens eyes, non-verbal. radiation monitor showing SR. pt is trach to vent, saturating 97%. Gtube site clean, and patent. suprapubic cath draining well to gravity. call light w/in reach. no bleeding noted. skin alternation noted and dressing sites are clean, patent, and dry. left 24hand right upper arm 18G and right hand 22G IV sites are clean, intact, and patent. In no apparent distress. VSS afebrile. will continue POC. bed at the lowest position, side rails x 3 up, alarm engaged, and locked.
[2020-03-13] MEDS: Cefepime HCl 1 GM in D5W 55 ML IVPB SCH (01:13)
[2020-03-13] MEDS: Vancomycin 1 GM in NS 275 ML IVPB SCH (03:12)
[2020-03-13 04:00] VITALS: BP 124/72
--- NOTE | 2020-03-13 04:00 | NUR ---
NURSE NOTES: Condition unchanged. Remain SR on front desk monitor. VSS Afebrile. In no apparent distress. Will continue POC.
[2020-03-13 05:48] LABS: HEMATOCRIT 34.7 % (37.0-47.0); HEMOGLOBIN 10.7 G/DL (12.0-16.0); MEAN CORPUSCULAR VOLUME 91 FL (80-99); PLATELET COUNT 408 K/UL (150-450); RED BLOOD COUNT 3.84 M/UL (4.20-5.40); RED CELL DISTRIBUTION WIDTH 17.1 % (11.6-14.8)
[2020-03-13 06:41] LABS: ALANINE AMINOTRANSFERASE 34 U/L (12-78); ALBUMIN 1.6 G/DL (3.4-5.0); ALBUMIN/GLOBULIN RATIO 0.3 (1.0-2.7); ALKALINE PHOSPHATASE 161 U/L (46-116); ANION GAP 11 mmol/L (5-15); ASPARTATE AMINO TRANSFERASE 22 U/L (15-37); BILIRUBIN,TOTAL 0.6 MG/DL (0.2-1.0); BLOOD UREA NITROGEN 19 mg/dL (7-18); CALCIUM 10.6 MG/DL (8.5-10.1); CARBON DIOXIDE 24 MMOL/L (21-32); CHLORIDE 115 MMOL/L (98-107); CHOLESTEROL 132 MG/DL (< 200); CREATININE 0.9 MG/DL (0.55-1.30); GAMMA GLUTAMYL TRANSPEPTIDASE 20 U/L (5-85); HDL CHOLESTEROL 27 MG/DL (40-60); PHOSPHORUS 4.2 MG/DL (2.5-4.9); POTASSIUM 3.7 MMOL/L (3.5-5.1); SODIUM 150 MMOL/L (136-145); TRIGLYCERIDES 184 MG/DL (30-150)
--- NOTE | 2020-03-13 07:30 | NUR ---
NURSE NOTES: pt in bed eyes open non verbal. pt on vent. sating 96-98. Pt on telemetry monitor no sings of cardiac distress. Bed locked and in lowest position. Call light within reach. pt shows no signs of pain. Pt still on continues water flush. Will continue to monitor pt
--- NOTE | 2020-03-13 07:49 | Infectious Diseases Prog Note ---
Assessment/Plan 74yo F with: Febrile Leukocytosis Sepsis Left lower lung infiltrate Acute on chronic resp failure SP trach GPC bacteremia 03/11 BCx +GPCx Resp cx +GNRs COVID rapid Ag neg CXR: Midline tracheostomy. Small left pleural effusion. Hyperinflation with flattening of the diaphragms and emphysema, consistent with COPD. No lobar infiltrate. MRSA nares positive VDRF S/p trach/PEG Bed bound Plan: Cont empiric vancomycin & cefepime #3 Repeat BCx today and tomorrow F/u GPCs in admission BCx F/u Resp cx +GNRs Depending on species in Bcx may need TTE Trend WBC, improving Monitor CBC/CMP Monitor temp curve, hemodynamics Monitor resp status Thank you for this consult. [facility] will continue to follow. Subjective Allergies: Coded Allergies: No Known Allergies (Unverified , 03/11/20) AF WBC improving NAD in bed BCx + GPCs Resp cx +GNRs On vent via trach no lines Sacral decub Objective Last 24 Hour Vital Signs Date Time Temp Pulse Resp B/P (MAP) Pulse Ox O2 Delivery O2 Flow Rate FiO2 03/13/20 05:15 93 29 35 03/13/20 04:00 100 03/13/20 04:00 Mechanical Ventilator Mechanical Ventilator 03/13/20 04:00 35 03/13/20 04:00 99 03/13/20 04:00 98.6 99 26 124/72 (89) 100 03/13/20 03:10 101 32 35 03/13/20 00:56 65 26 35 03/13/20 00:04 90 03/13/20 00:00 Mechanical Ventilator Mechanical Ventilator 03/13/20 00:00 35 03/13/20 00:00 98.3 89 28 132/75 (94) 99 03/12/20 23:06 93 23 35 03/12/20 21:29 100 21 35 03/12/20 20:00 Mechanical Ventilator Mechanical Ventilator 03/12/20 20:00 100 03/12/20 20:00 35 03/12/20 20:00 98.6 101 18 103/59 (74) 100 03/12/20 18:50 102 27 35 03/12/20 16:56 99 16 35 03/12/20 16:00 97.2 93 18 96/57 (70) 100 03/12/20 16:00 Mechanical Ventilator Mechanical Ventilator 03/12/20 16:00 100 03/12/20 16:00 35 03/12/20 15:20 97 22 35 03/12/20 13:20 89 26 35 03/12/20 12:05 Mechanical Ventilator Mechanical Ventilator 03/12/20 12:00 108 03/12/20 12:00 35 03/12/20 12:00 97.5 104 20 123/89 (100) 100 03/12/20 11:00 88 18 35 03/12/20 09:00 89 148/79 03/12/20 08:46 94 19 35 03/12/20 08:30 Mechanical Ventilator Mechanical Ventilator 03/12/20 08:00 96.8 89 18 148/79 (102) 100 03/12/20 08:00 50 03/12/20 08:00 86 Height (Feet): 5 Height (Inches): 5.00 Weight (Pounds): 147 Gen: NAD in bed HEENT: NCAT, trach CV: RRR Pulm: CTAB Abd: Soft, NTND Ext: No c/c/e Skin: Stage 4 sacral decub ulceration, clean Neuro: Sleeping, not interactive Microbiology Date/Time Source Procedure Growth Status 03/11/20 14:00 Sputum Gram Stain - Final Resulted 03/11/20 14:00 Sputum Sputum Culture Pending Resulted 03/11/20 00:59 Nasal Nares MRSA Culture - Final Staphylococcus Aureus - Mrsa Complete 03/11/20 00:59 Nasopharynx SARS-CoV-2 RdRp Gene Assay - Final Complete 03/11/20 00:45 Blood Blood Culture - Preliminary Resulted Laboratory Tests Test 03/12/20 07:56 03/13/20 03:10 Arterial Blood pH 7.389 (7.350-7.450) Arterial Blood Partial Pressure CO2 38.0 mmHg (35.0-45.0) Arterial Blood Partial Pressure O2 184.1 mmHg (75.0-100.0) H Arterial Blood HCO3 22.4 mmol/L (22.0-26.0) Arterial Blood Oxygen Saturation 99.4 % (95-100) Arterial Blood Base Excess -2.3 (-2-2) L Mukul Test Positive White Blood Count 20.0 K/UL (4.8-10.8) H Red Blood Count 3.84 M/UL (4.20-5.40) L Hemoglobin 10.7 G/DL (12.0-16.0) #L Hematocrit 34.7 % (37.0-47.0) #L Mean Corpuscular Volume 91 FL (80-99) Mean Corpuscular Hemoglobin 27.9 PG (27.0-31.0) Mean Corpuscular Hemoglobin Concent 30.9 G/DL (32.0-36.0) L Red Cell Distribution Width 17.1 % (11.6-14.8) H Platelet Count 408 K/UL (150-450) Mean Platelet Volume 8.1 FL (6.5-10.1) Neutrophils (%) (Auto) % (45.0-75.0) Lymphocytes (%) (Auto) % (20.0-45.0) Monocytes (%) (Auto) % (1.0-10.0) Eosinophils (%) (Auto) % (0.0-3.0) Basophils (%) (Auto) % (0.0-2.0) Neutrophils % (Manual) Pending Lymphocytes % (Manual) Pending Platelet Estimate Pending Platelet Morphology Pending Sodium Level 150 MMOL/L (136-145) H Potassium Level 3.7 MMOL/L (3.5-5.1) Chloride Level 115 MMOL/L (98-107) H Carbon Dioxide Level 24 MMOL/L (21-32) Anion Gap 11 mmol/L (5-15) Blood Urea Nitrogen 19 mg/dL (7-18) H Creatinine 0.9 MG/DL (0.55-1.30) Estimat Glomerular Filtration Rate > 60 mL/min (>60) Glucose Level 138 MG/DL (74-106) H Uric Acid 3.7 MG/DL (2.6-7.2) Calcium Level 10.6 MG/DL (8.5-10.1) H Phosphorus Level 4.2 MG/DL (2.5-4.9) Magnesium Level 1.9 MG/DL (1.8-2.4) Total Bilirubin 0.6 MG/DL (0.2-1.0) Gamma Glutamyl Transpeptidase 20 U/L (5-85) Aspartate Amino Transf (AST/SGOT) 22 U/L (15-37) Alanine Aminotransferase (ALT/SGPT) 34 U/L (12-78) Alkaline Phosphatase 161 U/L (46-116) H C-Reactive Protein, Quantitative 70.0 mg/dL (0.00-0.90) H Pro-B-Type Natriuretic Peptide 1510 pg/mL (0-125) H Total Protein 7.8 G/DL (6.4-8.2) Albumin 1.6 G/DL (3.4-5.0) L Globulin 6.2 g/dL Albumin/Globulin Ratio 0.3 (1.0-2.7) L Triglycerides Level 184 MG/DL (30-150) H Cholesterol Level 132 MG/DL (< 200) LDL Cholesterol 67 mg/dL (<100) HDL Cholesterol 27 MG/DL (40-60) L Cholesterol/HDL Ratio 4.9 (3.3-4.4) H Thyroid Stimulating Hormone (TSH) 1.566 uiU/mL (0.358-3.740) Current Medications Medications (Trade) Dose Ordered Sig/Zaki Route PRN Reason Start Time Stop Time Status Last Admin Dose Admin Acetaminophen (Tylenol) 650 mg Q6H PRN GT Temp >100.5, Mild Pain 03/11/20 06:30 04/10/20 06:29 03/12/20 21:22 Acetaminophen/ Codeine Phosphate (Tylenol #3) 1 tab Q6H PRN GT For Mod-Severe Pain 03/11/20 06:30 03/18/20 06:29 03/11/20 17:27 Amlodipine Besylate (Norvasc) 10 mg DAILY GT 03/11/20 09:00 04/10/20 08:59 03/12/20 09:00 Aspirin (ASA) 81 mg DAILY GT 03/11/20 09:00 04/25/20 08:59 03/12/20 09:00 Cefepime HCl 1 gm/ Dextrose 55 ml @ 110 mls/hr Q24H IVPB 03/12/20 02:00 03/19/20 01:59 03/13/20 01:13 Dextrose 1,000 ml @ 75 mls/hr [id number] IV 03/12/20 13:45 04/11/20 13:44 03/12/20 14:39 Famotidine (Pepcid) 40 mg BID GT 03/12/20 18:00 06/09/20 08:59 03/12/20 18:59 Heparin Sodium (Porcine) (Heparin 5000 units/ml) 5,000 units EVERY 12 HOURS SUBQ 03/11/20 09:00 04/25/20 08:59 03/11/20 08:08 Ondansetron HCl (Zofran) 4 mg Q4H PRN IVP Nausea & Vomiting 03/11/20 06:30 04/10/20 06:29 Vancomycin HCl (Vanco pharmacy to dose) 1 ea DAILY PRN MISC Per rx protocol 03/11/20 06:30 04/10/20 06:29 Vancomycin HCl 1 gm/Sodium Chloride 275 ml @ 183.708 mls/hr Q24H IVPB 03/12/20 03:00 03/17/20 02:59 03/13/20 03:12 Zinc Sulfate (Zinc Sulfate) 220 mg DAILY ORAL 03/13/20 09:00 03/23/20 08:59 Shirley Villegas M.D. Mar 13, 2020 07:49
[2020-03-13 08:00] VITALS: BP_SYST 124; BP_SYST 144; BP_DIAS 69; BP_DIAS 72
--- NOTE | 2020-03-13 09:30 | Nephrology Progress Note ---
Assessment/Plan Problem List: (1) Hypercalcemia (2) Hypernatremia (3) Sepsis (4) UTI (urinary tract infection) (5) Stage 4 decubitus ulcer (6) Acute on chronic respiratory failure (7) Chronic vegetative state (8) Severe protein-calorie malnutrition Assessment Azotemia and hypernatremia indicative of severe dehydration and free water deficit Acute on chronic respiratory failure, on mechanical ventilation Severe underlying anemia Sepsis Stage IV decubitus Idiopathic obstructive hydrocephalus, history of intracranial hemorrhage Diabetes mellitus Parkinson's disease, dementia Protein calorie malnutrition Plan March 13: dose of pamidronate 60 mg for high calcium IV ordered. Labs reviewed. Medication list reviewed. Electrolytes improving. Hemoglobin higher after transfusion. Nasal calcitonin initiated March 12: D5W at 75 cc an hour Monitor electrolytes Monitor hemoglobin hematocrit Gastric support Consider transfusion Continue per orders Parameters for blood pressure medication Antibiotics per ID Subjective ROS Limited/Unobtainable: Yes Objective Objective Last 24 Hour Vital Signs Date Time Temp Pulse Resp B/P (MAP) Pulse Ox O2 Delivery O2 Flow Rate FiO2 03/13/20 08:00 35 03/13/20 08:00 98.1 98 17 144/69 (94) 100 03/13/20 08:00 Mechanical Ventilator Mechanical Ventilator 03/13/20 05:15 93 29 35 03/13/20 04:00 100 03/13/20 04:00 Mechanical Ventilator Mechanical Ventilator 03/13/20 04:00 35 03/13/20 04:00 99 03/13/20 04:00 98.6 99 26 124/72 (89) 100 03/13/20 03:10 101 32 35 03/13/20 00:56 65 26 35 03/13/20 00:04 90 03/13/20 00:00 Mechanical Ventilator Mechanical Ventilator 03/13/20 00:00 35 03/13/20 00:00 98.3 89 28 132/75 (94) 99 03/12/20 23:06 93 23 35 03/12/20 21:29 100 21 35 03/12/20 20:00 Mechanical Ventilator Mechanical Ventilator 03/12/20 20:00 100 03/12/20 20:00 35 03/12/20 20:00 98.6 101 18 103/59 (74) 100 03/12/20 18:50 102 27 35 03/12/20 16:56 99 16 35 11/15/20 16:00 97.2 93 18 96/57 (70) 100 03/12/20 16:00 Mechanical Ventilator Mechanical Ventilator 03/12/20 16:00 100 03/12/20 16:00 35 03/12/20 15:20 97 22 35 03/12/20 13:20 89 26 35 03/12/20 12:05 Mechanical Ventilator Mechanical Ventilator 03/12/20 12:00 108 03/12/20 12:00 35 03/12/20 12:00 97.5 104 20 123/89 (100) 100 03/12/20 11:00 88 18 35 Intake and Output 03/12/20 03/13/20 19:00 07:00 Intake Total 2350.0 ml Output Total 2100 ml Balance 250.0 ml Free Water 120 ml IV Total 830.0 ml Tube Feeding 550 ml Blood Product 250 ml Other 600 ml Output Urine Total 2100 ml Laboratory Tests 03/13/20 03:10: White Blood Count 20.0H, Red Blood Count 3.84L, Hemoglobin 10.7#L, Hematocrit 34.7#L, Mean Corpuscular Volume 91, Mean Corpuscular Hemoglobin 27.9, Mean Corpu scular Hemoglobin Concent 30.9L, Red Cell Distribution Width 17.1H, Platelet Count 408, Mean Platelet Volume 8.1, Neutrophils (%) (Auto) , Lymphocytes (%) (Auto) , Monocytes (%) (Auto) , Eosinophils (%) (Auto) , Basophils (%) (Auto) , Differential Total Cells Counted 100, Neutrophils % (Manual) 76H, Lymphocytes % (Manual) 12L, Monocytes % (Manual) 5, Eosinophils % (Manual) 7H, Basophils % (Manual) 0, Band Neutrophils 0, Platelet Estimate Adequate, Platelet Morphology Normal, Hypochromasia 1+, Anisocytosis 1+, Sodium Level 150H, Potassium Level 3.7, Chloride Level 115H, Carbon Dioxide Level 24, Anion Gap 11, Blood Urea Nitrogen 19H, Creatinine 0.9, Estimat Glomerular Filtration Rate > 60, Glucose Level 138H, Uric Acid 3.7, Calcium Level 10.6H, Phosphorus Level 4.2, Magnesium Level 1.9, Total Bilirubin 0.6, Gamma Glutamyl Transpeptidase 20, Aspartate Amino Transf (AST/SGOT) 22, Alanine Aminotransferase (ALT/SGPT) 34, Alkaline Phosphatase 161H, C-Reactive Protein, Quantitative 70.0H, Pro-B-Type Natriuretic Peptide 1510H, Total Protein 7.8, Albumin 1.6L, Globulin 6.2, Albumin/Globulin Ratio 0.3L, Triglycerides Level 184H, Cholesterol Level 132, LDL Cholesterol 67, HDL Cholesterol 27L, Cholesterol/HDL Ratio 4.9H, Thyroid Stimulating Hormone (TSH) 1.566 Height (Feet): 5 Height (Inches): 5.00 Weight (Pounds): 147 General Appearance: no apparent distress EENT: other - Trach to vent Cardiovascular: tachycardia Respiratory/Chest: decreased breath sounds Abdomen: distended Mathew Huntley MD Mar 13, 2020 09:30
[2020-03-13] MEDS: Aspirin Baby 81mg GT SCH (09:51)
[2020-03-13] MEDS: Zinc Sulfate 220mg ORAL SCH (09:51)
[2020-03-13] MEDS: Heparin 5000 units/ml inj SUBQ SCH ×2 (09:52→20:49)
[2020-03-13] MEDS ORDERED: Pamidronate Disodium Inj 60 MG in Sodium Chloride 550 ML IVPB ONE (10:30)
[2020-03-13 12:00] VITALS: BP 138/75
[2020-03-13] MEDS ORDERED: Lidocaine 1% Plain 30 ml INJ ONE (15:00)
[2020-03-13] MEDS ORDERED: Heparin1,000 units/500ml Premix(Conc:2 units/ml) INJ ONE (15:00)
--- NOTE | 2020-03-13 15:39 | NUR ---
HOME SPECIALISTVOLUNTEER RECRUITMENT COORDINATOR SI: RESP FAILURE TRACH/VENT DEPENDENT,SEPSIS T. 99.1 HR 109 RR 27 B/P 144/68 AC 16 TV 400 FIO2 35% PEEP 5 BNP 1510 IS: IVF D5@ 75ML/HR VANCO IV CEFEPIME IV STEP DOWN STATUS
--- NOTE | 2020-03-13 15:42 | NUR ---
[facility] REVIEWED AND FAXED.
[2020-03-13 16:00] VITALS: BP 120/79
--- NOTE | 2020-03-13 16:00 | NUR ---
NURSE NOTES: per. doct. mittal pt ok to continue D5w 75ml/hr and resume feeding.
--- NOTE | 2020-03-13 18:51 | Surgery Progress Note ---
Surgery Progress Note Subjective Additional Comments leukocytosis h/h improved with prbc no n/v labs reviewed exam stable ill appearing Objective Last 24 Hour Vital Signs Date Time Temp Pulse Resp B/P (MAP) Pulse Ox O2 Delivery O2 Flow Rate FiO2 03/13/20 17:29 84 27 35 03/13/20 16:00 99.1 92 17 120/79 (93) 100 92 03/13/20 15:03 83 21 35 03/13/20 13:15 107 27 35 03/13/20 12:00 99.1 110 17 138/75 (96) 99 03/13/20 12:00 Mechanical Ventilator Mechanical Ventilator 03/13/20 12:00 35 03/13/20 12:00 109 03/13/20 11:29 109 27 35 03/13/20 09:51 98 144/69 03/13/20 09:21 96 24 35 03/13/20 08:00 35 03/13/20 08:00 98.1 98 17 144/69 (94) 100 03/13/20 08:00 101 03/13/20 08:00 Mechanical Ventilator Mechanical Ventilator 03/13/20 07:20 87 22 35 03/13/20 05:15 93 29 35 03/13/20 04:00 100 03/13/20 04:00 Mechanical Ventilator Mechanical Ventilator 03/13/20 04:00 35 03/13/20 04:00 99 03/13/20 04:00 98.6 99 26 124/72 (89) 100 03/13/20 03:10 101 32 35 03/13/20 00:56 65 26 35 03/13/20 00:04 90 03/13/20 00:00 Mechanical Ventilator Mechanical Ventilator 03/13/20 00:00 35 03/13/20 00:00 98.3 89 28 132/75 (94) 99 03/12/20 23:06 93 23 35 03/12/20 21:29 100 21 35 03/12/20 20:00 Mechanical Ventilator Mechanical Ventilator 03/12/20 20:00 100 03/12/20 20:00 35 03/12/20 20:00 98.6 101 18 103/59 (74) 100 I&O Intake and Output 03/12/20 03/13/20 19:00 07:00 Intake Total 2350.0 ml Output Total 2100 ml Balance 250.0 ml Free Water 120 ml IV Total 830.0 ml Tube Feeding 550 ml Blood Product 250 ml Other 600 ml Output Urine Total 2100 ml Dressing: saturated Cardiovascular: RSR Respiratory: decreased breath sounds Abdomen: soft, non-tender, present bowel sounds Extremities: no tenderness, no cyanosis Laboratory Tests Test 03/13/20 03:10 White Blood Count 20.0 K/UL (4.8-10.8) H Red Blood Count 3.84 M/UL (4.20-5.40) L Hemoglobin 10.7 G/DL (12.0-16.0) #L Hematocrit 34.7 % (37.0-47.0) #L Mean Corpuscular Volume 91 FL (80-99) Mean Corpuscular Hemoglobin 27.9 PG (27.0-31.0) Mean Corpuscular Hemoglobin Concent 30.9 G/DL (32.0-36.0) L Red Cell Distribution Width 17.1 % (11.6-14.8) H Platelet Count 408 K/UL (150-450) Mean Platelet Volume 8.1 FL (6.5-10.1) Neutrophils (%) (Auto) % (45.0-75.0) Lymphocytes (%) (Auto) % (20.0-45.0) Monocytes (%) (Auto) % (1.0-10.0) Eosinophils (%) (Auto) % (0.0-3.0) Basophils (%) (Auto) % (0.0-2.0) Differential Total Cells Counted 100 Neutrophils % (Manual) 76 % (45-75) H Lymphocytes % (Manual) 12 % (20-45) L Monocytes % (Manual) 5 % (1-10) Eosinophils % (Manual) 7 % (0-3) H Basophils % (Manual) 0 % (0-2) Band Neutrophils 0 % (0-8) Platelet Estimate Adequate Platelet Morphology Normal Hypochromasia 1+ Anisocytosis 1+ Sodium Level 150 MMOL/L (136-145) H Potassium Level 3.7 MMOL/L (3.5-5.1) Chloride Level 115 MMOL/L (98-107) H Carbon Dioxide Level 24 MMOL/L (21-32) Anion Gap 11 mmol/L (5-15) Blood Urea Nitrogen 19 mg/dL (7-18) H Creatinine 0.9 MG/DL (0.55-1.30) Estimat Glomerular Filtration Rate > 60 mL/min (>60) Glucose Level 138 MG/DL (74-106) H Uric Acid 3.7 MG/DL (2.6-7.2) Calcium Level 10.6 MG/DL (8.5-10.1) H Phosphorus Level 4.2 MG/DL (2.5-4.9) Magnesium Level 1.9 MG/DL (1.8-2.4) Total Bilirubin 0.6 MG/DL (0.2-1.0) Gamma Glutamyl Transpeptidase 20 U/L (5-85) Aspartate Amino Transf (AST/SGOT) 22 U/L (15-37) Alanine Aminotransferase (ALT/SGPT) 34 U/L (12-78) Alkaline Phosphatase 161 U/L (46-116) H C-Reactive Protein, Quantitative 70.0 mg/dL (0.00-0.90) H Pro-B-Type Natriuretic Peptide 1510 pg/mL (0-125) H Total Protein 7.8 G/DL (6.4-8.2) Albumin 1.6 G/DL (3.4-5.0) L Globulin 6.2 g/dL Albumin/Globulin Ratio 0.3 (1.0-2.7) L Triglycerides Level 184 MG/DL (30-150) H Cholesterol Level 132 MG/DL (< 200) LDL Cholesterol 67 mg/dL (<100) HDL Cholesterol 27 MG/DL (40-60) L Cholesterol/HDL Ratio 4.9 (3.3-4.4) H Thyroid Stimulating Hormone (TSH) 1.566 uiU/mL (0.358-3.740) Plan Problems: (1) Hypernatremia (2) Sepsis (3) UTI (urinary tract infection) (4) Stage 4 decubitus ulcer Assessment & Plan: Stage 4 ulcer on admission. macerated edges. serous drainage. foul odor. no active infection Tx plan: wash with NS. apply therahoney gauze and dressing daily change prn saturation DAILY ESTIMATED NEEDS: Needs based on Advanced wound, critical care, underweight, AL[employer]D PA[employer] TF/ 45.5kg 30-40 kcals/kg 5277-4962 total kcals 1.5-2 g protein/kg 68-91 g total protein 30-40 mL/kg 3350-0199 total fluid mLs NUTRITION DIAGNOSIS: Increased kcal/prot needs R/T underweight status, wound healing as evidenced by pt @83% IBW w/ underweight BMI of 17.2, admitted w/ multiple wounds, including stage 4 sacral wound. CURRENT TF:Glucerna 1.2 @ 45ml/hr x 24 hrs ENTERAL NUTRITION RECOMMENDATIONS: Glucerna 1.2 @ 60ml/hr x 24 hrs to provide 1440ml, 1728kcal, 86g prot, 1159ml free water * Increase goal rate to 60ml/hr x 24 hrs to meet 100% est kcal/prot needs -> 1.9g prot/kg * HOB over 30 degrees/ water flush per MD * add Shen BID ADDITIONAL RECOMMENDATIONS: * Per SNF: HT=64" and MK=307# vs EMR wt of 147lbs -> rec daily calibrated bedscale wt * Wound healing: TF rec @ goal will provide 100% RDI Vit C 500mg BID, ZnSO4 220gm QD x 10 days Shen BID via PEG * Monitor BGs, consider NISS: h/o DM * Monitor lytes, replete as needed (5) Chronic respiratory failure requiring continuous mechanical ventilation through tracheostomy (6) History of intracranial hemorrhage (7) Idiopathic obstructive hydrocephalus (8) Gout (9) Diabetes mellitus (10) Parkinson's disease dementia (11) Acute on chronic respiratory failure (12) Chronic vegetative state (13) Severe protein-calorie malnutrition Chris Hunter Mar 13, 2020 18:51
--- NOTE | 2020-03-13 19:02 | Pulmonolgy Critical Care Note ---
Critical Care - Asmt/Plan Problems: (1) Chronic vegetative state (2) Acute on chronic respiratory failure (3) Sepsis (4) Stage 4 decubitus ulcer (5) Chronic respiratory failure requiring continuous mechanical ventilation through tracheostomy (6) Diabetes mellitus (7) Parkinson's disease dementia (8) Gout (9) Idiopathic obstructive hydrocephalus (10) Severe protein-calorie malnutrition (11) History of intracranial hemorrhage Respiratory: monitor respiratory rate, adjust FIO2 Cardiac: continue to monitor HR/BP Renal: F/U I&O, keep IV fluid, check electrolytes Infectious Disease: check cultures Gastrointestinal: start feedings Endocrine: monitor blood sugar Hematologic: monitor H/H Neurologic: PRN Ativan Affect: PRN ativan Prophylaxis: Protonix Notes Reviewed: enrollment services dean, cardio, renal Discussed with: nurses, consultants, housing case managermanager poker - Objective Last 24 Hour Vital Signs Date Time Temp Pulse Resp B/P (MAP) Pulse Ox O2 Delivery O2 Flow Rate FiO2 03/13/20 17:29 84 27 35 03/13/20 16:00 99.1 92 17 120/79 (93) 100 92 03/13/20 15:03 83 21 35 03/13/20 13:15 107 27 35 03/13/20 12:00 99.1 110 17 138/75 (96) 99 03/13/20 12:00 Mechanical Ventilator Mechanical Ventilator 03/13/20 12:00 35 03/13/20 12:00 109 03/13/20 11:29 109 27 35 03/13/20 09:51 98 144/69 03/13/20 09:21 96 24 35 03/13/20 08:00 35 03/13/20 08:00 98.1 98 17 144/69 (94) 100 03/13/20 08:00 101 03/13/20 08:00 Mechanical Ventilator Mechanical Ventilator 03/13/20 07:20 87 22 35 03/13/20 05:15 93 29 35 03/13/20 04:00 100 03/13/20 04:00 Mechanical Ventilator Mechanical Ventilator 03/13/20 04:00 35 03/13/20 04:00 99 03/13/20 04:00 98.6 99 26 124/72 (89) 100 03/13/20 03:10 101 32 35 03/13/20 00:56 65 26 35 03/13/20 00:04 90 03/13/20 00:00 Mechanical Ventilator Mechanical Ventilator 03/13/20 00:00 35 03/13/20 00:00 98.3 89 28 132/75 (94) 99 03/12/20 23:06 93 23 35 03/12/20 21:29 100 21 35 03/12/20 20:00 Mechanical Ventilator Mechanical Ventilator 03/12/20 20:00 100 03/12/20 20:00 35 03/12/20 20:00 98.6 101 18 103/59 (74) 100 Status: somnolent HEENT: normocephalic Neck: trach Heart: HR/BP stable, regular Abdomen: soft, non-tender, feeding tube Extremities: no C/C/E Micro: Microbiology Date/Time Source Procedure Growth Status 03/11/20 14:00 Sputum Gram Stain - Final Resulted 03/11/20 14:00 Sputum Culture - Preliminary Gram Negative Bacillus 1 Usual Respiratory Mandy Resulted 03/11/20 00:59 Rectum - Final NO CARBAPENEM-RESISTANT ENTEROBACTERI... Complete 03/11/20 00:59 Rectum VRE Culture - Final Enterococcus Faecium - Vre Complete 03/11/20 00:59 Nasal Nares MRSA Culture - Final Staphylococcus Aureus - Mrsa Complete 03/11/20 00:59 Nasopharynx SARS-CoV-2 RdRp Gene Assay - Final Complete 03/11/20 00:45 Blood Blood Culture - Preliminary Staphylococcus Aureus Resulted Critical Care - Subjective ROS Limited/Unobtainable: Yes Condition: critical EKG Rhythm: Sinus Rhythm FI02: 35 Vent Support Breath Rate: 16 Vent Support Mode: AC Vent Tidal Volume: 400 Sputum Amount: Small PEEP: 5.0 PIP: 19 Tube Feeding Amount: 45 I&O: Intake and Output 03/12/20 03/13/20 19:00 07:00 Intake Total 2350.0 ml Output Total 2100 ml Balance 250.0 ml Free Water 120 ml IV Total 830.0 ml Tube Feeding 550 ml Blood Product 250 ml Other 600 ml Output Urine Total 2100 ml CXR: no change Labs: Laboratory Tests Test 03/13/20 03:10 White Blood Count 20.0 K/UL (4.8-10.8) H Red Blood Count 3.84 M/UL (4.20-5.40) L Hemoglobin 10.7 G/DL (12.0-16.0) #L Hematocrit 34.7 % (37.0-47.0) #L Mean Corpuscular Volume 91 FL (80-99) Mean Corpuscular Hemoglobin 27.9 PG (27.0-31.0) Mean Corpuscular Hemoglobin Concent 30.9 G/DL (32.0-36.0) L Red Cell Distribution Width 17.1 % (11.6-14.8) H Platelet Count 408 K/UL (150-450) Mean Platelet Volume 8.1 FL (6.5-10.1) Neutrophils (%) (Auto) % (45.0-75.0) Lymphocytes (%) (Auto) % (20.0-45.0) Monocytes (%) (Auto) % (1.0-10.0) Eosinophils (%) (Auto) % (0.0-3.0) Basophils (%) (Auto) % (0.0-2.0) Differential Total Cells Counted 100 Neutrophils % (Manual) 76 % (45-75) H Lymphocytes % (Manual) 12 % (20-45) L Monocytes % (Manual) 5 % (1-10) Eosinophils % (Manual) 7 % (0-3) H Basophils % (Manual) 0 % (0-2) Band Neutrophils 0 % (0-8) Platelet Estimate Adequate Platelet Morphology Normal Hypochromasia 1+ Anisocytosis 1+ Sodium Level 150 MMOL/L (136-145) H Potassium Level 3.7 MMOL/L (3.5-5.1) Chloride Level 115 MMOL/L (98-107) H Carbon Dioxide Level 24 MMOL/L (21-32) Anion Gap 11 mmol/L (5-15) Blood Urea Nitrogen 19 mg/dL (7-18) H Creatinine 0.9 MG/DL (0.55-1.30) Estimat Glomerular Filtration Rate > 60 mL/min (>60) Glucose Level 138 MG/DL (74-106) H Uric Acid 3.7 MG/DL (2.6-7.2) Calcium Level 10.6 MG/DL (8.5-10.1) H Phosphorus Level 4.2 MG/DL (2.5-4.9) Magnesium Level 1.9 MG/DL (1.8-2.4) Total Bilirubin 0.6 MG/DL (0.2-1.0) Gamma Glutamyl Transpeptidase 20 U/L (5-85) Aspartate Amino Transf (AST/SGOT) 22 U/L (15-37) Alanine Aminotransferase (ALT/SGPT) 34 U/L (12-78) Alkaline Phosphatase 161 U/L (46-116) H C-Reactive Protein, Quantitative 70.0 mg/dL (0.00-0.90) H Pro-B-Type Natriuretic Peptide 1510 pg/mL (0-125) H Total Protein 7.8 G/DL (6.4-8.2) Albumin 1.6 G/DL (3.4-5.0) L Globulin 6.2 g/dL Albumin/Globulin Ratio 0.3 (1.0-2.7) L Triglycerides Level 184 MG/DL (30-150) H Cholesterol Level 132 MG/DL (< 200) LDL Cholesterol 67 mg/dL (<100) HDL Cholesterol 27 MG/DL (40-60) L Cholesterol/HDL Ratio 4.9 (3.3-4.4) H Thyroid Stimulating Hormone (TSH) 1.566 uiU/mL (0.358-3.740) Patti Matta MD Mar 13, 2020 19:02
--- NOTE | 2020-03-13 19:03 | Internal Med Progress Note ---
Subjective Date of Service: Mar 13, 2020 Physician Name Piyush Barajas Attending Physician Jesus Lutz MD Current Medications Medications (Trade) Dose Ordered Sig/Zaki Route PRN Reason Start Time Stop Time Status Last Admin Dose Admin Acetaminophen (Tylenol) 650 mg Q6H PRN GT Temp >100.5, Mild Pain 03/11/20 06:30 04/10/20 06:29 03/12/20 21:22 Acetaminophen/ Codeine Phosphate (Tylenol #3) 1 tab Q6H PRN GT For Mod-Severe Pain 03/11/20 06:30 03/18/20 06:29 03/11/20 17:27 Amlodipine Besylate (Norvasc) 10 mg DAILY GT 03/11/20 09:00 04/10/20 08:59 03/13/20 09:51 Aspirin (ASA) 81 mg DAILY GT 03/11/20 09:00 04/25/20 08:59 03/13/20 09:51 Calcitonin [place] (Miacalcin) 1 sprays DAILY NASAL 03/13/20 11:00 06/11/20 10:59 03/13/20 12:01 Cefepime HCl 1 gm/ Dextrose 55 ml @ 110 mls/hr Q24H IVPB 03/12/20 02:00 03/19/20 01:59 03/13/20 01:13 Dextrose 1,000 ml @ 75 mls/hr [id number] IV 03/12/20 13:45 04/11/20 13:44 03/13/20 16:25 Famotidine (Pepcid) 40 mg BID GT 03/12/20 18:00 06/09/20 08:59 03/13/20 18:04 Heparin Sodium (Porcine) (Heparin 5000 units/ml) 5,000 units EVERY 12 HOURS SUBQ 03/11/20 09:00 04/25/20 08:59 03/13/20 09:52 Ondansetron HCl (Zofran) 4 mg Q4H PRN IVP Nausea & Vomiting 03/11/20 06:30 04/10/20 06:29 Vancomycin HCl (Vanco pharmacy to dose) 1 ea DAILY PRN MISC Per rx protocol 03/11/20 06:30 04/10/20 06:29 Vancomycin HCl 1 gm/Dextrose 275 ml @ 183.708 mls/hr Q24H IVPB 03/14/20 03:00 03/17/20 02:59 Zinc Sulfate (Zinc Sulfate) 220 mg DAILY ORAL 03/13/20 09:00 03/23/20 08:59 03/13/20 09:51 Allergies: Coded Allergies: No Known Allergies (Unverified , 03/11/20) ROS Limited/Unobtainable: Yes Subjective 74 YO F trach dependent admitted with hypoxic respiratory failure. Now pneumonia and sepsis. Cover for Int Med-Dr Lutz. Step down unit Objective Last Vital Signs Date Time Temp Pulse Resp B/P (MAP) Pulse Ox O2 Delivery O2 Flow Rate FiO2 03/13/20 17:29 84 27 35 03/13/20 16:00 99.1 120/79 (93) 100 03/13/20 12:00 Mechanical Ventilator Mechanical Ventilator Laboratory Tests Test 03/13/20 03:10 White Blood Count 20.0 K/UL (4.8-10.8) H Red Blood Count 3.84 M/UL (4.20-5.40) L Hemoglobin 10.7 G/DL (12.0-16.0) #L Hematocrit 34.7 % (37.0-47.0) #L Mean Corpuscular Volume 91 FL (80-99) Mean Corpuscular Hemoglobin 27.9 PG (27.0-31.0) Mean Corpuscular Hemoglobin Concent 30.9 G/DL (32.0-36.0) L Red Cell Distribution Width 17.1 % (11.6-14.8) H Platelet Count 408 K/UL (150-450) Mean Platelet Volume 8.1 FL (6.5-10.1) Neutrophils (%) (Auto) % (45.0-75.0) Lymphocytes (%) (Auto) % (20.0-45.0) Monocytes (%) (Auto) % (1.0-10.0) Eosinophils (%) (Auto) % (0.0-3.0) Basophils (%) (Auto) % (0.0-2.0) Differential Total Cells Counted 100 Neutrophils % (Manual) 76 % (45-75) H Lymphocytes % (Manual) 12 % (20-45) L Monocytes % (Manual) 5 % (1-10) Eosinophils % (Manual) 7 % (0-3) H Basophils % (Manual) 0 % (0-2) Band Neutrophils 0 % (0-8) Platelet Estimate Adequate Platelet Morphology Normal Hypochromasia 1+ Anisocytosis 1+ Sodium Level 150 MMOL/L (136-145) H Potassium Level 3.7 MMOL/L (3.5-5.1) Chloride Level 115 MMOL/L (98-107) H Carbon Dioxide Level 24 MMOL/L (21-32) Anion Gap 11 mmol/L (5-15) Blood Urea Nitrogen 19 mg/dL (7-18) H Creatinine 0.9 MG/DL (0.55-1.30) Estimat Glomerular Filtration Rate > 60 mL/min (>60) Glucose Level 138 MG/DL (74-106) H Uric Acid 3.7 MG/DL (2.6-7.2) Calcium Level 10.6 MG/DL (8.5-10.1) H Phosphorus Level 4.2 MG/DL (2.5-4.9) Magnesium Level 1.9 MG/DL (1.8-2.4) Total Bilirubin 0.6 MG/DL (0.2-1.0) Gamma Glutamyl Transpeptidase 20 U/L (5-85) Aspartate Amino Transf (AST/SGOT) 22 U/L (15-37) Alanine Aminotransferase (ALT/SGPT) 34 U/L (12-78) Alkaline Phosphatase 161 U/L (46-116) H C-Reactive Protein, Quantitative 70.0 mg/dL (0.00-0.90) H Pro-B-Type Natriuretic Peptide 1510 pg/mL (0-125) H Total Protein 7.8 G/DL (6.4-8.2) Albumin 1.6 G/DL (3.4-5.0) L Globulin 6.2 g/dL Albumin/Globulin Ratio 0.3 (1.0-2.7) L Triglycerides Level 184 MG/DL (30-150) H Cholesterol Level 132 MG/DL (< 200) LDL Cholesterol 67 mg/dL (<100) HDL Cholesterol 27 MG/DL (40-60) L Cholesterol/HDL Ratio 4.9 (3.3-4.4) H Thyroid Stimulating Hormone (TSH) 1.566 uiU/mL (0.358-3.740) Microbiology Date/Time Source Procedure Growth Status 03/11/20 14:00 Sputum Gram Stain - Final Resulted 03/11/20 14:00 Sputum Culture - Preliminary Gram Negative Bacillus 1 Usual Respiratory Mandy Resulted 03/11/20 00:59 Rectum - Final NO CARBAPENEM-RESISTANT ENTEROBACTERI... Complete 03/11/20 00:59 Rectum VRE Culture - Final Enterococcus Faecium - Vre Complete 03/11/20 00:59 Nasal Nares MRSA Culture - Final Staphylococcus Aureus - Mrsa Complete 03/11/20 00:59 Nasopharynx SARS-CoV-2 RdRp Gene Assay - Final Complete 03/11/20 00:45 Blood Blood Culture - Preliminary Staphylococcus Aureus Resulted Intake and Output 03/12/20 03/13/20 19:00 07:00 Intake Total 2350.0 ml Output Total 2100 ml Balance 250.0 ml Free Water 120 ml IV Total 830.0 ml Tube Feeding 550 ml Blood Product 250 ml Other 600 ml Output Urine Total 2100 ml Objective PHYSICAL EXAMINATION: VITAL SIGNS: Temperature febrile at 101.2 degrees Fahrenheit, pulse 123, respiratory rate 26, blood pressure 98/65. GENERAL: The patient is a thin-appearing female who is intubated and nonverbal. HEENT: Eyes, pupils are equal and responsive to light and accommodation. Extraocular movements are intact. NECK: Supple without lymphadenopathy. Tracheostomy is in place. CHEST: Diffuse wheezes bilaterally without rhonchi. CARDIOVASCULAR: Tachycardic, regular rhythm. S1, S2 are normal without murmurs, rubs, or gallops. ABDOMEN: Soft, nontender, and nondistended. Positive bowel sounds. No evidence of hepatosplenomegaly. Currently, no rebound or guarding noted. EXTREMITIES: Negative for clubbing, cyanosis, or edema. RECTAL/GENITAL: Not performed. NEUROLOGIC: Unable to assess. chest x-ray revealed left lower lobe consolidation consistent with pneumonia Assessment/Plan Assessment/Plan ASSESSMENT: This is a 74-year-old female. 1. Left lower lobe pneumonia. 2. Respiratory failure. 3. Hypernatremia. 4. Renal failure. 5. Hypoxemia. 6. Tracheostomy dependence. 7. Chronic obstructive pulmonary disease. 8. Diabetes type 2. 9. Parkinson disease. 10. Gout. 11. Glaucoma. 12. Sacral decubitus ulcer stage IV. 13. History of intracranial hemorrhage. 14. Hydrocephalus. 15. sepsis=Staph aureus TREATMENT: 1. Left lower lobe pneumonia/respiratory failure/sepsis. Pulmonary consultation =Dr. Patti Matta. ABX= vancomycin and cefepime. Infectious disease=Dr. Cruz. We will follow recommendations of Infectious Disease and Pulmonary. 2. Hypernatremia. Hypernatremia may be secondary to renal failure versus dehydration. Nephrology consultation =. 3. Renal failure nephrology consultation =Dr. Huntley. 4. Tracheostomy dependence. 5. Chronic obstructive pulmonary disease. 6. Diabetes type 2. NovoLog sliding scale has been instituted. 7. Parkinson disease. 8. Gout. Continue allopurinol as above. 9. Glaucoma. 10. Sacral decubitus ulcer stage IV. A general surgery consultation has been obtained with Dr. Chris Hunter. 11. History of intracranial hemorrhage. Piyush Barajas MD Mar 13, 2020 19:03
--- NOTE | 2020-03-13 19:33 | NUR ---
NURSE HAND-OFF REPORT: Important Events on Shift: ok to put rectal tube pt. has diarrhea and has sacral st 4 wound. Patient Status: full Diet: gtube Pending Orders: Pending Results/Labs: Pending MD notification: Latest Vital Signs: Temperature 99.1 , Pulse 84 , B/P 120 /79 , Respiratory Rate 27 , O2 SAT 100 , Mechanical Ventilator, O2 Flow Rate . Vital Sign Comment: EKG Rhythm: Sinus Rhythm Rhythm change?: N MD Notified?: - MD Response: Latest [place] Fall Score: 50 Fall Risk: High Risk Safety Measures: Call light Within Reach, Bed Alarm Zone 1, Side Rails Side Rails x3, Bed position Low and Locked. Fall Precautions: y Yellow Socks y Door Sign Patient Fall Education y Report given to Sergo/ADILENE
--- NOTE | 2020-03-13 19:34 | NUR ---
NURSE NOTES: Pt received from ADILENE Phillips. Pt awake, nonverbal 2nd to vent. A/O 0; PERRLA. Saturating 100% on prescribed vent settings of A/C 16 Vt 400 fiO2 35% G-tube running Glucerna 1.2 at 45cc with 0 residual. Suprapubic cath draining well to gravity. Made aware of alterations in skin integrity. Right hand running D5W at 75 mL/hr Hgb improved after x2 PRBC yesterday. No bleeding noted. Bed kept in lowest and locked position. Bed alarm on - will continue to monitor.
[2020-03-13] MEDS ORDERED: Tubing IV Secondary IV ONE (19:35)
[2020-03-13] MEDS ORDERED: NS 275ml ONE (19:35)
[2020-03-13 20:00] VITALS: BP 113/60
--- NOTE | 2020-03-13 20:00 | NUR ---
NURSE NOTES: Merissa, daughter, called for update. Plan for visit in AM. Pt in stable condition
--- NOTE | 2020-03-13 22:09 | NUR ---
NURSE NOTES: Read in MD notes that pt will be started on Novolog + sliding scale. No order observed. Messaged Dr. Lutz for orders and OBS results came back +. BSG this evening is 170 mg/dl. Pt on feeding and running D5W. Awaiting further orders.
[2020-03-13] MEDS: NovoLOG Insulin Flexpen SUBQ SCH (23:56)
[2020-03-14] VITALS: BP 113/64
--- NOTE | 2020-03-14 00:36 | NUR ---
NURSE NOTES: Began sliding scale. Dr. Lutz ordered to keep IV D5W.
[2020-03-14] MEDS: Cefepime HCl 1 GM in D5W 55 ML IVPB SCH (01:20)
[2020-03-14] MEDS: Acetaminophen 650mg/20.3ml GT PRN (01:23)
--- NOTE | 2020-03-14 01:53 | NUR ---
NURSE NOTES: Tylenol and cooling measures initiated for temperature of 100.0F axil. Will monitor.
[2020-03-14 02:19] LABS: HEMATOCRIT 30.4 % (37.0-47.0); HEMOGLOBIN 9.7 G/DL (12.0-16.0); MEAN CORPUSCULAR VOLUME 89 FL (80-99); PLATELET COUNT 389 K/UL (150-450); RED BLOOD COUNT 3.39 M/UL (4.20-5.40); RED CELL DISTRIBUTION WIDTH 16.3 % (11.6-14.8); WHITE BLOOD COUNT 18.8 K/UL (4.8-10.8)
[2020-03-14 02:46] LABS: ALANINE AMINOTRANSFERASE 43 U/L (12-78); ALBUMIN 1.3 G/DL (3.4-5.0); ALBUMIN/GLOBULIN RATIO 0.2 (1.0-2.7); ALKALINE PHOSPHATASE 149 U/L (46-116); ANION GAP 8 mmol/L (5-15); ASPARTATE AMINO TRANSFERASE 29 U/L (15-37); BILIRUBIN,TOTAL 0.3 MG/DL (0.2-1.0); BLOOD UREA NITROGEN 14 mg/dL (7-18); CALCIUM 9.5 MG/DL (8.5-10.1); CARBON DIOXIDE 25 MMOL/L (21-32); CHLORIDE 111 MMOL/L (98-107); CREATININE 0.9 MG/DL (0.55-1.30); POTASSIUM 3.3 MMOL/L (3.5-5.1); SODIUM 144 MMOL/L (136-145)
[2020-03-14] MEDS ORDERED: Vancomycin 1 GM in D5W 275 ML IVPB SCH (03:00)
[2020-03-14 03:38] VITALS: BP 104/57
[2020-03-14] MEDS: Vancomycin 750mg/D5W 275ml IVPB SCH ×4 (04:04→15:50)
[2020-03-14] MEDS: NovoLOG Insulin Flexpen SUBQ SCH ×3 (05:06→18:11)
--- NOTE | 2020-03-14 05:16 | NUR ---
NURSE NOTES: Temperature decreased to 98.9 Axil. BSG 170 mg/dl. Insulin given as ordered. Pt in stable condition.
--- NOTE | 2020-03-14 07:10 | Infectious Diseases Prog Note ---
Assessment/Plan 74yo F with: Febrile Leukocytosis Sepsis Left lower lung infiltrate Acute on chronic resp failure SP trach MRSA bacteremia 03/11 BCx +MRSA Resp cx +PsA (colonizer given on minimal vent settings, no pna on imaging) UCx 30-40k ACB (colonizer) COVID rapid Ag neg CXR: Midline tracheostomy. Small left pleural effusion. Hyperinflation with flattening of the diaphragms and emphysema, consistent with COPD. No lobar infiltrate. 03/12 BCx NTD 03/13 C.dif neg 03/13 BCx p MRSA nares positive VDRF S/p trach/PEG Bed bound Plan: Stop cefepime #4 Cont vancomycin #4 for MRSA bacteremia TTE given MRSA bacteremia CT A/P to eval for source of bacteremia F/u repeat BCx to ensure clearance of bacteremia Trend WBC Monitor CBC/CMP Monitor temp curve, hemodynamics Monitor resp status D/w RN Thank you for this consult. [facility] will continue to follow. Subjective Allergies: Coded Allergies: No Known Allergies (Unverified , 03/11/20) Febrile to 100.6 WBC improving to 18 BCx from admission +MRSA NAD on vent Objective Last 24 Hour Vital Signs Date Time Temp Pulse Resp B/P (MAP) Pulse Ox O2 Delivery O2 Flow Rate FiO2 03/14/20 06:00 87 31 35 03/14/20 04:00 100 03/14/20 03:38 98.9 81 23 104/57 (73) 100 03/14/20 03:31 78 03/14/20 03:10 76 25 35 03/14/20 02:00 100.6 03/14/20 02:00 100.6 03/14/20 01:18 85 26 35 03/14/20 00:00 82 03/14/20 00:00 99.1 84 20 113/64 (80) 100 03/14/20 00:00 Mechanical Ventilator 03/13/20 23:10 95 26 35 03/13/20 21:30 94 28 35 03/13/20 20:57 Mechanical Ventilator 03/13/20 20:00 92 03/13/20 20:00 35 03/13/20 20:00 98.1 90 16 113/60 (77) 100 03/13/20 19:30 84 29 35 03/13/20 17:29 84 27 35 03/13/20 16:00 99.1 92 17 120/79 (93) 100 92 03/13/20 16:00 35 03/13/20 16:00 89 03/13/20 16:00 Mechanical Ventilator Mechanical Ventilator 03/13/20 15:03 83 21 35 03/13/20 13:15 107 27 35 03/13/20 12:00 99.1 110 17 138/75 (96) 99 03/13/20 12:00 Mechanical Ventilator Mechanical Ventilator 03/13/20 12:00 35 03/13/20 12:00 109 03/13/20 11:29 109 27 35 03/13/20 09:51 98 144/69 03/13/20 09:21 96 24 35 03/13/20 08:00 35 03/13/20 08:00 98.1 98 17 144/69 (94) 100 03/13/20 08:00 101 03/13/20 08:00 Mechanical Ventilator Mechanical Ventilator 03/13/20 07:20 87 22 35 Height (Feet): 5 Height (Inches): 5.00 Weight (Pounds): 147 Gen: NAD in bed HEENT: NCAT, trach CV: RRR Pulm: CTAB Abd: Soft, NTND, +PEG Ext: No c/c/e Skin: Stage 4 sacral decub ulceration, clean Neuro: Sleeping, not interactive Microbiology Date/Time Source Procedure Growth Status 03/13/20 17:04 Stool Clostridium difficile Toxin Assay - Final Complete 03/12/20 10:10 Blood Blood Culture - Preliminary NO GROWTH AFTER 24 HOURS Resulted 03/12/20 09:55 Blood Blood Culture - Preliminary NO GROWTH AFTER 24 HOURS Resulted 03/11/20 14:00 Sputum Gram Stain - Final Resulted 03/11/20 14:00 Sputum Culture - Preliminary Gram Negative Bacillus 1 Usual Respiratory Mandy Resulted 03/11/20 09:43 Urine,Clean Catch Urine Culture - Preliminary Acinetobacter Baumannii Complx Resulted Laboratory Tests Test 03/13/20 17:04 03/13/20 21:54 03/13/20 23:48 03/14/20 02:00 Stool Occult Blood Positive (NEGATIVE) POC Whole Blood Glucose 170 MG/DL (74-106) H 143 MG/DL (74-106) H White Blood Count 18.8 K/UL (4.8-10.8) H Red Blood Count 3.39 M/UL (4.20-5.40) L Hemoglobin 9.7 G/DL (12.0-16.0) L Hematocrit 30.4 % (37.0-47.0) L Mean Corpuscular Volume 89 FL (80-99) Mean Corpuscular Hemoglobin 28.7 PG (27.0-31.0) Mean Corpuscular Hemoglobin Concent 32.1 G/DL (32.0-36.0) Red Cell Distribution Width 16.3 % (11.6-14.8) H Platelet Count 389 K/UL (150-450) Mean Platelet Volume 7.6 FL (6.5-10.1) Neutrophils (%) (Auto) % (45.0-75.0) Lymphocytes (%) (Auto) % (20.0-45.0) Monocytes (%) (Auto) % (1.0-10.0) Eosinophils (%) (Auto) % (0.0-3.0) Basophils (%) (Auto) % (0.0-2.0) Differential Total Cells Counted 100 Neutrophils % (Manual) 70 % (45-75) Lymphocytes % (Manual) 21 % (20-45) Monocytes % (Manual) 4 % (1-10) Eosinophils % (Manual) 5 % (0-3) H Basophils % (Manual) 0 % (0-2) Band Neutrophils 0 % (0-8) Platelet Estimate Adequate Platelet Morphology Normal Sodium Level 144 MMOL/L (136-145) Potassium Level 3.3 MMOL/L (3.5-5.1) L Chloride Level 111 MMOL/L (98-107) H Carbon Dioxide Level 25 MMOL/L (21-32) Anion Gap 8 mmol/L (5-15) Blood Urea Nitrogen 14 mg/dL (7-18) Creatinine 0.9 MG/DL (0.55-1.30) Estimat Glomerular Filtration Rate > 60 mL/min (>60) Glucose Level 164 MG/DL (74-106) H Calcium Level 9.5 MG/DL (8.5-10.1) Phosphorus Level 3.0 MG/DL (2.5-4.9) Magnesium Level 1.6 MG/DL (1.8-2.4) L Total Bilirubin 0.3 MG/DL (0.2-1.0) Aspartate Amino Transf (AST/SGOT) 29 U/L (15-37) Alanine Aminotransferase (ALT/SGPT) 43 U/L (12-78) Alkaline Phosphatase 149 U/L (46-116) H Total Protein 6.7 G/DL (6.4-8.2) Albumin 1.3 G/DL (3.4-5.0) L Globulin 5.4 g/dL Albumin/Globulin Ratio 0.2 (1.0-2.7) L Vancomycin Level Trough 11.2 ug/mL (5.0-12.0) Test 03/14/20 05:04 POC Whole Blood Glucose 170 MG/DL (74-106) H Current Medications Medications (Trade) Dose Ordered Sig/Zaki Route PRN Reason Start Time Stop Time Status Last Admin Dose Admin Acetaminophen (Tylenol) 650 mg Q6H PRN GT Temp >100.5, Mild Pain 03/11/20 06:30 04/10/20 06:29 03/14/20 01:23 Acetaminophen/ Codeine Phosphate (Tylenol #3) 1 tab Q6H PRN GT For Mod-Severe Pain 03/11/20 06:30 03/18/20 06:29 03/11/20 17:27 Amlodipine Besylate (Norvasc) 10 mg DAILY GT 03/11/20 09:00 04/10/20 08:59 03/13/20 09:51 Aspirin (ASA) 81 mg DAILY GT 03/11/20 09:00 04/25/20 08:59 03/13/20 09:51 Calcitonin [place] (Miacalcin) 1 sprays DAILY NASAL 03/13/20 11:00 06/11/20 10:59 03/13/20 12:01 Cefepime HCl 1 gm/ Dextrose 55 ml @ 110 mls/hr Q24H IVPB 03/12/20 02:00 03/19/20 01:59 03/14/20 01:20 Dextrose 1,000 ml @ 75 mls/hr [id number] IV 03/12/20 13:45 04/11/20 13:44 03/14/20 05:01 Dextrose (Dextrose 50%) 25 ml Q30M PRN IV Hypoglycemia 03/13/20 23:30 06/11/20 23:29 Dextrose (Dextrose 50%) 50 ml Q30M PRN IV Hypoglycemia 03/13/20 23:30 06/11/20 23:29 Famotidine (Pepcid) 40 mg BID GT 03/12/20 18:00 06/09/20 08:59 03/13/20 18:04 Heparin Sodium (Porcine) (Heparin 5000 units/ml) 5,000 units EVERY 12 HOURS SUBQ 03/11/20 09:00 04/25/20 08:59 03/13/20 20:49 Insulin Aspart (NovoLOG) Q6HR SUBQ 03/14/20 00:00 06/12/20 00:00 03/14/20 05:06 Ondansetron HCl (Zofran) 4 mg Q4H PRN IVP Nausea & Vomiting 03/11/20 06:30 04/10/20 06:29 Vancomycin HCl (Vanco pharmacy to dose) 1 ea DAILY PRN MISC Per rx protocol 03/11/20 06:30 04/10/20 06:29 Vancomycin HCl 750 mg/Dextrose 275 ml @ 183.333 mls/hr Q12H IVPB 03/14/20 04:00 03/19/20 03:59 03/14/20 04:04 Zinc Sulfate (Zinc Sulfate) 220 mg DAILY ORAL 03/13/20 09:00 03/23/20 08:59 03/13/20 09:51 Shirley Villegas M.D. Mar 14, 2020 07:10
[2020-03-14] MEDS ORDERED: Omnipaque-300 100ml vial INJ PRN (07:15)
--- NOTE | 2020-03-14 07:18 | NUR ---
NURSE HAND-OFF REPORT: Important Events on Shift: Febrile; OBS + Patient Status: Stable Diet: Glucerna 1.2 Pending Orders: Y - OBS + Pending Results/Labs: N Pending MD notification: N Latest Vital Signs: Temperature 98.9 , Pulse 87 , B/P 104 /57 , Respiratory Rate 31 , O2 SAT 100 , Mechanical Ventilator, O2 Flow Rate . Vital Sign Comment: EKG Rhythm: Sinus Rhythm Rhythm change?: N MD Notified?: - MD Response: Latest Ochoa Fall Score: 50 Fall Risk: High Risk Safety Measures: Call light Within Reach, Bed Alarm Zone 1, Side Rails Side Rails x3, Bed position Low and Locked. Fall Precautions: Yellow Socks Door Sign Patient Fall Education Report given to ADILENE Scott.
[2020-03-14 08:00] VITALS: BP 126/67
--- NOTE | 2020-03-14 08:06 | NUR ---
NURSE NOTES:n Handoff received from ADILENE Lechuga. Patient received resting in bed, patient is on ventilator, non verbal due to trach with settings: Portex 7, AC16 TV400, FI02 35% and PEEP of 5, tolerating well with no signs of distress and saturation of 100%. Patient opens eyes to name. G tube feeding of Glucerna 1.2 @ 45 continuos. Patient has a suprapubic catheter patent and draining to gravity. railroad detective is on with HR of 79 SR. patient is placed on contact and aspiration and fall risk precautions with bed in the low and locked position, call light within reach, skin issues noted. IV site is running D5W@ 75ML/HR will follow plan of care.
--- NOTE | 2020-03-14 08:10 | NUR ---
NURSE NOTES:G tube feeding placed on hold for imaging study later today.
[2020-03-14] MEDS: Heparin 5000 units/ml inj SUBQ SCH ×2 (09:00→20:01)
--- NOTE | 2020-03-14 09:00 | NUR ---
NURSE NOTES:Non-administered Heparin as patient has positive stool OB.
[2020-03-14] MEDS: Zinc Sulfate 220mg ORAL SCH (09:28)
[2020-03-14] MEDS: Aspirin Baby 81mg GT SCH (09:28)
--- NOTE | 2020-03-14 11:32 | Pulmonolgy Critical Care Note ---
Critical Care - Asmt/Plan Problems: (1) Acute on chronic respiratory failure (2) Sepsis (3) Chronic respiratory failure requiring continuous mechanical ventilation through tracheostomy (4) Stage 4 decubitus ulcer (5) Diabetes mellitus (6) Parkinson's disease dementia (7) Gout (8) Idiopathic obstructive hydrocephalus (9) Severe protein-calorie malnutrition (10) History of intracranial hemorrhage (11) Chronic vegetative state Respiratory: monitor respiratory rate, adjust FIO2 Cardiac: continue to monitor HR/BP Renal: F/U I&O, check electrolytes Infectious Disease: check cultures, continue antibiotics Gastrointestinal: continue feedings/current rate Endocrine: monitor blood sugar, continue sliding scale insulin Hematologic: monitor H/H, transfuse if hgb<8.5 Neurologic: PRN Ativan, PRN Morphine, keep patient comfortable Affect: PRN ativan Disposition: keep in ICU Notes Reviewed: biomedical instrument technician, cardio, renal Discussed with: nurses, consultants, wrapper caserresidential program manager - Objective Last 24 Hour Vital Signs Date Time Temp Pulse Resp B/P (MAP) Pulse Ox O2 Delivery O2 Flow Rate FiO2 03/14/20 09:28 80 24 35 03/14/20 09:28 89 126/67 03/14/20 09:18 Mechanical Ventilator 03/14/20 08:00 97.7 89 22 126/67 (86) 100 03/14/20 08:00 77 03/14/20 07:05 82 27 35 03/14/20 06:00 87 31 35 03/14/20 04:00 100 03/14/20 03:38 98.9 81 23 104/57 (73) 100 03/14/20 03:31 78 03/14/20 03:10 76 25 35 03/14/20 02:00 100.6 03/14/20 02:00 100.6 03/14/20 01:18 85 26 35 03/14/20 00:00 82 03/14/20 00:00 99.1 84 20 113/64 (80) 100 03/14/20 00:00 Mechanical Ventilator 03/13/20 23:10 95 26 35 03/13/20 21:30 94 28 35 03/13/20 20:57 Mechanical Ventilator 03/13/20 20:00 92 03/13/20 20:00 35 03/13/20 20:00 98.1 90 16 113/60 (77) 100 03/13/20 19:30 84 29 35 03/13/20 17:29 84 27 35 03/13/20 16:00 99.1 92 17 120/79 (93) 100 92 03/13/20 16:00 35 03/13/20 16:00 89 03/13/20 16:00 Mechanical Ventilator Mechanical Ventilator 03/13/20 15:03 83 21 35 03/13/20 13:15 107 27 35 03/13/20 12:00 99.1 110 17 138/75 (96) 99 03/13/20 12:00 Mechanical Ventilator Mechanical Ventilator 03/13/20 12:00 35 03/13/20 12:00 109 Status: awake Condition: critical HEENT: atraumatic, normocephalic Neck: trach Lungs: rales, rhonchi Heart: HR/BP stable Abdomen: soft, non-tender, feeding tube Extremities: no C/C/E Micro: Microbiology Date/Time Source Procedure Growth Status 03/13/20 17:04 Stool Clostridium difficile Toxin Assay - Final Complete 03/12/20 10:10 Blood Blood Culture - Preliminary NO GROWTH AFTER 24 HOURS Resulted 03/12/20 09:55 Blood Blood Culture - Preliminary NO GROWTH AFTER 24 HOURS Resulted 03/11/20 14:00 Sputum Gram Stain - Final Resulted 03/11/20 14:00 Sputum Culture - Preliminary Pseudomonas Aeruginosa Usual Respiratory Mandy Resulted Accucheck: 170 Critical Care - Subjective ROS Limited/Unobtainable: Yes Condition: critical EKG Rhythm: Sinus Rhythm FI02: 35 Vent Support Breath Rate: 16 Vent Support Mode: AC Vent Tidal Volume: 400 Sputum Amount: Small PEEP: 5.0 PIP: 20 Tube Feeding Amount: 45 I&O: Intake and Output 03/13/20 03/14/20 19:00 07:00 Intake Total 205 ml 1529.413 ml Output Total 2200 ml 800 ml Balance -1995 ml 729.413 ml Free Water 40 ml IV Total 75 ml 989.413 ml Tube Feeding 90 ml 540 ml Output Urine Total 2200 ml 800 ml # Bowel Movements 6 1 CXR: HERBER, trach intact Labs: Laboratory Tests Test 03/13/20 17:04 03/13/20 21:54 03/13/20 23:48 03/14/20 02:00 Stool Occult Blood Positive (NEGATIVE) POC Whole Blood Glucose 170 MG/DL (74-106) H 143 MG/DL (74-106) H White Blood Count 18.8 K/UL (4.8-10.8) H Red Blood Count 3.39 M/UL (4.20-5.40) L Hemoglobin 9.7 G/DL (12.0-16.0) L Hematocrit 30.4 % (37.0-47.0) L Mean Corpuscular Volume 89 FL (80-99) Mean Corpuscular Hemoglobin 28.7 PG (27.0-31.0) Mean Corpuscular Hemoglobin Concent 32.1 G/DL (32.0-36.0) Red Cell Distribution Width 16.3 % (11.6-14.8) H Platelet Count 389 K/UL (150-450) Mean Platelet Volume 7.6 FL (6.5-10.1) Neutrophils (%) (Auto) % (45.0-75.0) Lymphocytes (%) (Auto) % (20.0-45.0) Monocytes (%) (Auto) % (1.0-10.0) Eosinophils (%) (Auto) % (0.0-3.0) Basophils (%) (Auto) % (0.0-2.0) Differential Total Cells Counted 100 Neutrophils % (Manual) 70 % (45-75) Lymphocytes % (Manual) 21 % (20-45) Monocytes % (Manual) 4 % (1-10) Eosinophils % (Manual) 5 % (0-3) H Basophils % (Manual) 0 % (0-2) Band Neutrophils 0 % (0-8) Platelet Estimate Adequate Platelet Morphology Normal Sodium Level 144 MMOL/L (136-145) Potassium Level 3.3 MMOL/L (3.5-5.1) L Chloride Level 111 MMOL/L (98-107) H Carbon Dioxide Level 25 MMOL/L (21-32) Anion Gap 8 mmol/L (5-15) Blood Urea Nitrogen 14 mg/dL (7-18) Creatinine 0.9 MG/DL (0.55-1.30) Estimat Glomerular Filtration Rate > 60 mL/min (>60) Glucose Level 164 MG/DL (74-106) H Calcium Level 9.5 MG/DL (8.5-10.1) Phosphorus Level 3.0 MG/DL (2.5-4.9) Magnesium Level 1.6 MG/DL (1.8-2.4) L Total Bilirubin 0.3 MG/DL (0.2-1.0) Aspartate Amino Transf (AST/SGOT) 29 U/L (15-37) Alanine Aminotransferase (ALT/SGPT) 43 U/L (12-78) Alkaline Phosphatase 149 U/L (46-116) H Total Protein 6.7 G/DL (6.4-8.2) Albumin 1.3 G/DL (3.4-5.0) L Globulin 5.4 g/dL Albumin/Globulin Ratio 0.2 (1.0-2.7) L Vancomycin Level Trough 11.2 ug/mL (5.0-12.0) Test 03/14/20 05:04 POC Whole Blood Glucose 170 MG/DL (74-106) H Patti Matta MD Mar 14, 2020 11:32
[2020-03-14 11:52] VITALS: BP 129/66
--- NOTE | 2020-03-14 12:11 | NUR ---
NURSE NOTES:non-administered insulin as patient is currently NPO for imaging study.
--- NOTE | 2020-03-14 12:39 | NUR ---
NURSE NOTES:Daughter Duy Craven consented to IV contrast for imaging study. Verified with second RN, Saran.
--- NOTE | 2020-03-14 13:36 | NUR ---
RD ASSESSMENT & RECOMMENDATIONS SEE CARE ACTIVITY FOR COMPLETE ASSESSMENT DAILY ESTIMATED NEEDS: Needs based on Advanced wound, critical care, underweight, MEDICAL RECORDS SPECIALIST TF/ 45.5kg 30-40 kcals/kg 0289-7865 total kcals 1.5-2 g protein/kg 68-91 g total protein 30-40 mL/kg 0727-1243 total fluid mLs NUTRITION DIAGNOSIS: Increased kcal/prot needs R/T underweight status, wound healing as evidenced by pt @83% IBW w/ underweight BMI of 17.2, admitted w/ multiple wounds, including stage 4 sacral wound. CURRENT TF:Glucerna 1.2 @ 45ml/hr x 24 hrs ENTERAL NUTRITION RECOMMENDATIONS: Glucerna 1.2 @ 60ml/hr x 24 hrs to provide 1440ml, 1728kcal, 86g prot, 1159ml free water * Increase goal rate to 60ml/hr x 24 hrs to meet 100% est kcal/prot needs -> 1.9g prot/kg * HOB over 30 degrees/ water flush per MD * add Shen BID ADDITIONAL RECOMMENDATIONS: * Per SNF: HT=64" and GD=832# vs EMR wt of 147lbs -> rec daily calibrated bedscale wt * Wound healing: TF rec @ goal will provide 100% RDI add Vit C 500mg BID, continue ZnSO4 220gm QD x 10 days Shen BID via PEG * Monitor BGs, consider NISS: h/o DM -> NISS now added * Add probiotics for diarrhea
--- NOTE | 2020-03-14 13:44 | NUR ---
ECHOCARDIOGRAPHY TECHNOLOGISTHOSPICE CARE SALES CONSULTANT SI RESP FAILURE, TRACH/VENT DEPENDENT, SEPSIS T 100.4 BP 129/66 RR 19 HR 97 AC 16 TV 400 PEEP 5 FIO2 100% WBC 18.8 K+3.3 MG 1.6 IS VANCO IV MAGNESIUM IV X1 K-DUR PO X1 D5W@75ML/HR STEP DOWN STATUS
--- NOTE | 2020-03-14 13:53 | NUR ---
NURSE NOTES:Called and spoke to Ochoa earth science technician to follow up regarding imaging study for the patient. Informed him that patient has been NPO since 08:10 am. Ochoa stated to administer the Oral contrast, will administer through patient G-tube. Imaging study will take place at 15:30 per Ochoa.
--- NOTE | 2020-03-14 14:25 | NUR ---
NURSE NOTES:Right AC 20G IV inserted for imaging study.
--- NOTE | 2020-03-14 15:12 | Surgery Progress Note ---
Surgery Progress Note Subjective Additional Comments wbc trending now no n/v labs reviewed exam stable Objective Last 24 Hour Vital Signs Date Time Temp Pulse Resp B/P (MAP) Pulse Ox O2 Delivery O2 Flow Rate FiO2 03/14/20 13:23 113 25 35 03/14/20 12:00 98 03/14/20 11:52 100.4 97 19 129/66 (87) 100 03/14/20 11:29 95 24 35 03/14/20 09:28 80 24 35 03/14/20 09:28 89 126/67 03/14/20 09:18 Mechanical Ventilator 03/14/20 08:00 97.7 89 22 126/67 (86) 100 03/14/20 08:00 77 03/14/20 07:05 82 27 35 03/14/20 06:00 87 31 35 03/14/20 04:00 100 03/14/20 03:38 98.9 81 23 104/57 (73) 100 03/14/20 03:31 78 03/14/20 03:10 76 25 35 03/14/20 02:00 100.6 03/14/20 02:00 100.6 03/14/20 01:18 85 26 35 03/14/20 00:00 82 03/14/20 00:00 99.1 84 20 113/64 (80) 100 03/14/20 00:00 Mechanical Ventilator 03/13/20 23:10 95 26 35 03/13/20 21:30 94 28 35 03/13/20 20:57 Mechanical Ventilator 03/13/20 20:00 92 03/13/20 20:00 35 03/13/20 20:00 98.1 90 16 113/60 (77) 100 03/13/20 19:30 84 29 35 03/13/20 17:29 84 27 35 03/13/20 16:00 99.1 92 17 120/79 (93) 100 92 03/13/20 16:00 35 03/13/20 16:00 89 03/13/20 16:00 Mechanical Ventilator Mechanical Ventilator I&O Intake and Output 03/13/20 03/14/20 19:00 07:00 Intake Total 205 ml 1529.413 ml Output Total 2200 ml 800 ml Balance -1995 ml 729.413 ml Free Water 40 ml IV Total 75 ml 989.413 ml Tube Feeding 90 ml 540 ml Output Urine Total 2200 ml 800 ml # Bowel Movements 6 1 Dressing: saturated Cardiovascular: RSR Respiratory: decreased breath sounds Abdomen: non-tender, present bowel sounds, non-distended Extremities: no tenderness, no cyanosis Laboratory Tests Test 03/13/20 17:04 03/13/20 21:54 03/13/20 23:48 03/14/20 02:00 Stool Occult Blood Positive (NEGATIVE) POC Whole Blood Glucose 170 MG/DL (74-106) H 143 MG/DL (74-106) H White Blood Count 18.8 K/UL (4.8-10.8) H Red Blood Count 3.39 M/UL (4.20-5.40) L Hemoglobin 9.7 G/DL (12.0-16.0) L Hematocrit 30.4 % (37.0-47.0) L Mean Corpuscular Volume 89 FL (80-99) Mean Corpuscular Hemoglobin 28.7 PG (27.0-31.0) Mean Corpuscular Hemoglobin Concent 32.1 G/DL (32.0-36.0) Red Cell Distribution Width 16.3 % (11.6-14.8) H Platelet Count 389 K/UL (150-450) Mean Platelet Volume 7.6 FL (6.5-10.1) Neutrophils (%) (Auto) % (45.0-75.0) Lymphocytes (%) (Auto) % (20.0-45.0) Monocytes (%) (Auto) % (1.0-10.0) Eosinophils (%) (Auto) % (0.0-3.0) Basophils (%) (Auto) % (0.0-2.0) Differential Total Cells Counted 100 Neutrophils % (Manual) 70 % (45-75) Lymphocytes % (Manual) 21 % (20-45) Monocytes % (Manual) 4 % (1-10) Eosinophils % (Manual) 5 % (0-3) H Basophils % (Manual) 0 % (0-2) Band Neutrophils 0 % (0-8) Platelet Estimate Adequate Platelet Morphology Normal Sodium Level 144 MMOL/L (136-145) Potassium Level 3.3 MMOL/L (3.5-5.1) L Chloride Level 111 MMOL/L (98-107) H Carbon Dioxide Level 25 MMOL/L (21-32) Anion Gap 8 mmol/L (5-15) Blood Urea Nitrogen 14 mg/dL (7-18) Creatinine 0.9 MG/DL (0.55-1.30) Estimat Glomerular Filtration Rate > 60 mL/min (>60) Glucose Level 164 MG/DL (74-106) H Calcium Level 9.5 MG/DL (8.5-10.1) Phosphorus Level 3.0 MG/DL (2.5-4.9) Magnesium Level 1.6 MG/DL (1.8-2.4) L Total Bilirubin 0.3 MG/DL (0.2-1.0) Aspartate Amino Transf (AST/SGOT) 29 U/L (15-37) Alanine Aminotransferase (ALT/SGPT) 43 U/L (12-78) Alkaline Phosphatase 149 U/L (46-116) H Total Protein 6.7 G/DL (6.4-8.2) Albumin 1.3 G/DL (3.4-5.0) L Globulin 5.4 g/dL Albumin/Globulin Ratio 0.2 (1.0-2.7) L Vancomycin Level Trough 11.2 ug/mL (5.0-12.0) Test 03/14/20 05:04 03/14/20 12:00 POC Whole Blood Glucose 170 MG/DL (74-106) H 153 MG/DL (74-106) H Plan Problems: (1) Hypernatremia (2) Sepsis (3) UTI (urinary tract infection) (4) Stage 4 decubitus ulcer Assessment & Plan: Stage 4 ulcer on admission. macerated edges. serous drainage. foul odor. no active infection Tx plan: wash with NS. apply therahoney gauze and dressing daily change prn saturation DAILY ESTIMATED NEEDS: Needs based on Advanced wound, critical care, underweight, TELEVISION ANTENNA INSTALLER TF/ 45.5kg 30-40 kcals/kg 1132-7972 total kcals 1.5-2 g protein/kg 68-91 g total protein 30-40 mL/kg 4981-8978 total fluid mLs NUTRITION DIAGNOSIS: Increased kcal/prot needs R/T underweight status, wound healing as evidenced by pt @83% IBW w/ underweight BMI of 17.2, admitted w/ multiple wounds, including stage 4 sacral wound. CURRENT TF:Glucerna 1.2 @ 45ml/hr x 24 hrs ENTERAL NUTRITION RECOMMENDATIONS: Glucerna 1.2 @ 60ml/hr x 24 hrs to provide 1440ml, 1728kcal, 86g prot, 1159ml free water * Increase goal rate to 60ml/hr x 24 hrs to meet 100% est kcal/prot needs -> 1.9g prot/kg * HOB over 30 degrees/ water flush per MD * add Shen BID ADDITIONAL RECOMMENDATIONS: * Per SNF: HT=64" and RP=290# vs EMR wt of 147lbs -> rec daily calibrated bedscale wt * Wound healing: TF rec @ goal will provide 100% RDI Vit C 500mg BID, ZnSO4 220gm QD x 10 days Shen BID via PEG * Monitor BGs, consider NISS: h/o DM * Monitor lytes, replete as needed (5) Chronic respiratory failure requiring continuous mechanical ventilation through tracheostomy (6) History of intracranial hemorrhage (7) Idiopathic obstructive hydrocephalus (8) Gout (9) Diabetes mellitus (10) Parkinson's disease dementia (11) Acute on chronic respiratory failure (12) Chronic vegetative state (13) Severe protein-calorie malnutrition Assessment & Plan: DAILY ESTIMATED NEEDS: Needs based on Advanced wound, critical care, underweight, TELE[employer] TF/ 45.5kg 30-40 kcals/kg 7774-2571 total kcals 1.5-2 g protein/kg 68-91 g total protein 30-40 mL/kg 3269-6597 total fluid mLs NUTRITION DIAGNOSIS: Increased kcal/prot needs R/T underweight status, wound healing as evidenced by pt @83% IBW w/ underweight BMI of 17.2, admitted w/ multiple wounds, including stage 4 sacral wound. CURRENT TF:Glucerna 1.2 @ 45ml/hr x 24 hrs ENTERAL NUTRITION RECOMMENDATIONS: Glucerna 1.2 @ 60ml/hr x 24 hrs to provide 1440ml, 1728kcal, 86g prot, 1159ml free water * Increase goal rate to 60ml/hr x 24 hrs to meet 100% est kcal/prot needs -> 1.9g prot/kg * HOB over 30 degrees/ water flush per MD * add Shen BID ADDITIONAL RECOMMENDATIONS: * Per SNF: HT=64" and EY=846# vs EMR wt of 147lbs -> rec daily calibrated bedscale wt * Wound healing: TF rec @ goal will provide 100% RDI add Vit C 500mg BID, continue ZnSO4 220gm QD x 10 days Shen BID via PEG * Monitor BGs, consider NISS: h/o DM -> NISS now added * Add probiotics for diarrhea Chris Hunter Mar 14, 2020 15:12
--- NOTE | 2020-03-14 15:33 | Cardiology Report ---
APPROVED REPORT EXAM: Two-dimensional and M-mode echocardiogram with Doppler and color Doppler. INDICATION Endocarditis M-Mode DIMENSIONS IVSd0.9 (0.7-1.1cm)Left Atrium (MM)3.1 (1.6-4.0cm) LVDd3.5 (3.5-5.6cm)Aortic Root2.8 (2.0-3.7cm) PWd9.0 (0.7-1.1cm)Aortic Cusp Exc.1.9 (1.5-2.0cm) IVSs1.0 cmEPSS0.6 (>1.0cm) LVDs2.2 (2.5-4.0cm) PWs1.2 cm <Conclusion> Technically difficult study due to poor apical windows. Normal left ventricular chamber size, systolic function and wall motion to extent visualized. Left ventricular ejection fraction estimated to be 65-70 %. No left ventricular hypertrophy. Anterior Echo-free space, may be due to pericardial fat or effusion. All other cardiac chamber sizes are within normal limits. Focal aortic valve sclerosis with adequate cusp excursion. Thickened mitral valve leaflets with normal excursion. Mitral annulus and aortic root calcification. Pulmonic valve not well visualized. Normal tricuspid valve structure. IVC at normal size with physiologic collapse. A color flow and spectral Doppler study was performed and revealed: No aortic regurgitation. Trace to mild mitral regurgitation. Mitral diastolic velocities suggest reduced left ventricular relaxation c/w mild LV diastolic dysfunction (Grade I ). Mild tricuspid regurgitation. Tricuspid systolic velocities suggests peak right ventricular systolic pressure of 40 mmHg,consistent with mild pulmonary HTN. No pulmonic regurgitation present. No discrete vegetations seen, however SBE may not be excluded by transthoracic 2-D echo.
--- NOTE | 2020-03-14 15:45 | NUR ---
NURSE NOTES:called Dr Green as patient is scratching and breaking the skin on her lower back and buttock area. gave order for Benadryl 25MG Q8HR PRN for itching.
[2020-03-14 16:00] VITALS: BP 118/67
--- NOTE | 2020-03-14 16:22 | Nephrology Progress Note ---
Assessment/Plan Problem List: (1) Hypercalcemia (2) Hypernatremia (3) Sepsis (4) UTI (urinary tract infection) (5) Stage 4 decubitus ulcer (6) Acute on chronic respiratory failure (7) Chronic vegetative state (8) Severe protein-calorie malnutrition Assessment Azotemia and hypernatremia indicative of severe dehydration and free water deficit Acute on chronic respiratory failure, on mechanical ventilation Severe underlying anemia Sepsis Stage IV decubitus Idiopathic obstructive hydrocephalus, history of intracranial hemorrhage Diabetes mellitus Parkinson's disease, dementia Protein calorie malnutrition Plan March 14: Labs reviewed. Status quo. Serum calcium lowering. Magnesium and potassium supplement ordered. Continue per current treatment plan. March 13: 1 dose of pamidronate 60 mg for high calcium IV ordered. Labs reviewed. Medication list reviewed. Electrolytes improving. Hemoglobin higher after transfusion. Nasal calcitonin initiated March 12: D5W at 75 cc an hour Monitor electrolytes Monitor hemoglobin hematocrit Gastric support Consider transfusion Continue per orders Parameters for blood pressure medication Antibiotics per ID Subjective ROS Limited/Unobtainable: Yes Objective Objective Last 24 Hour Vital Signs Date Time Temp Pulse Resp B/P (MAP) Pulse Ox O2 Delivery O2 Flow Rate FiO2 03/14/20 15:24 88 26 35 03/14/20 13:23 113 25 35 03/14/20 12:00 98 03/14/20 11:52 100.4 97 19 129/66 (87) 100 03/14/20 11:29 95 24 35 03/14/20 09:28 80 24 35 03/14/20 09:28 89 126/67 03/14/20 09:18 Mechanical Ventilator 03/14/20 08:00 97.7 89 22 126/67 (86) 100 03/14/20 08:00 77 03/14/20 07:05 82 27 35 03/14/20 06:00 87 31 35 03/14/20 04:00 100 03/14/20 03:38 98.9 81 23 104/57 (73) 100 03/14/20 03:31 78 03/14/20 03:10 76 25 35 03/14/20 02:00 100.6 03/14/20 02:00 100.6 03/14/20 01:18 85 26 35 03/14/20 00:00 82 03/14/20 00:00 99.1 84 20 113/64 (80) 100 03/14/20 00:00 Mechanical Ventilator 03/13/20 23:10 95 26 35 03/13/20 21:30 94 28 35 03/13/20 20:57 Mechanical Ventilator 03/13/20 20:00 92 03/13/20 20:00 35 03/13/20 20:00 98.1 90 16 113/60 (77) 100 03/13/20 19:30 84 29 35 03/13/20 17:29 84 27 35 Intake and Output 03/13/20 03/14/20 19:00 07:00 Intake Total 205 ml 1604.413 ml Output Total 2200 ml 800 ml Balance -1995 ml 804.413 ml Free Water 40 ml IV Total 75 ml 1064.413 ml Tube Feeding 90 ml 540 ml Output Urine Total 2200 ml 800 ml # Bowel Movements 6 1 Laboratory Tests 03/13/20 17:04: Stool Occult Blood Positive 03/13/20 21:54: POC Whole Blood Glucose 170H 03/13/20 23:48: POC Whole Blood Glucose 143H 03/14/20 02:00: White Blood Count 18.8H, Red Blood Count 3.39L, Hemoglobin 9.7L, Hematocrit 30 .4L, Mean Corpuscular Volume 89, Mean Corpuscular Hemoglobin 28.7, Mean Corpuscular Hemoglobin Concent 32.1, Red Cell Distribution Width 16.3H, Platelet Count 389, Mean Platelet Volume 7.6, Neutrophils (%) (Auto) , Lymphocytes (%) (Auto) , Monocytes (%) (Auto) , Eosinophils (%) (Auto) , Basophils (%) (Auto) , Differential Total Cells Counted 100, Neutrophils % (Manual) 70, Lymphocytes % (Manual) 21, Monocytes % (Manual) 4, Eosinophils % (Manual) 5H, Basophils % (Manual) 0, Band Neutrophils 0, Platelet Estimate Adequate, Platelet Morphology Normal, Sodium Level 144, Potassium Level 3.3L, Chloride Level 111H, Carbon Dioxide Level 25, Anion Gap 8, Blood Urea Nitrogen 14, Creatinine 0.9, Estimat Glomerular Filtration Rate > 60, Glucose Level 164H, Calcium Level 9.5, Phosphor us Level 3.0, Magnesium Level 1.6L, Total Bilirubin 0.3, Aspartate Amino Transf (AST/SGOT) 29, Alanine Aminotransferase (ALT/SGPT) 43, Alkaline Phosphatase 149H , Total Protein 6.7, Albumin 1.3L, Globulin 5.4, Albumin/Globulin Ratio 0.2L, Vancomycin Level Trough 11.2 03/14/20 05:04: POC Whole Blood Glucose 170H 03/14/20 12:00: POC Whole Blood Glucose 153H Height (Feet): 5 Height (Inches): 5.00 Weight (Pounds): 147 General Appearance: no apparent distress, lethargic EENT: other - Trach to vent Cardiovascular: normal rate Respiratory/Chest: decreased breath sounds Abdomen: distended aMthew Huntley MD Mar 14, 2020 16:22
--- NOTE | 2020-03-14 16:58 | Internal Med Progress Note ---
Subjective Date of Service: Mar 14, 2020 Physician Name JennPiyush Attending Physician Jesus Lutz MD Current Medications Medications (Trade) Dose Ordered Sig/Zaki Route PRN Reason Start Time Stop Time Status Last Admin Dose Admin Acetaminophen (Tylenol) 650 mg Q6H PRN GT Temp >100.5, Mild Pain 03/11/20 06:30 04/10/20 06:29 03/14/20 01:23 Acetaminophen/ Codeine Phosphate (Tylenol #3) 1 tab Q6H PRN GT For Mod-Severe Pain 03/11/20 06:30 03/18/20 06:29 03/11/20 17:27 Amlodipine Besylate (Norvasc) 10 mg DAILY GT 03/11/20 09:00 04/10/20 08:59 03/14/20 09:28 Aspirin (ASA) 81 mg DAILY GT 03/11/20 09:00 04/25/20 08:59 03/14/20 09:28 Barium Sulfate (Readi-Cat 2) 450 ml NOW PRN ORAL Radiology Procedure 03/14/20 07:15 03/16/20 07:14 Calcitonin [place] (Miacalcin) 1 sprays DAILY NASAL 03/13/20 11:00 06/11/20 10:59 03/14/20 09:30 Dextrose 1,000 ml @ 75 mls/hr [id number] IV 03/12/20 13:45 04/11/20 13:44 03/14/20 05:01 Dextrose (Dextrose 50%) 25 ml Q30M PRN IV Hypoglycemia 03/13/20 23:30 06/11/20 23:29 Dextrose (Dextrose 50%) 50 ml Q30M PRN IV Hypoglycemia 03/13/20 23:30 06/11/20 23:29 Diphenhydramine HCl (Benadryl) 25 mg Q8H PRN ORAL Itching 03/14/20 15:00 04/13/20 14:59 03/14/20 15:50 Famotidine (Pepcid) 40 mg BID GT 03/12/20 18:00 06/09/20 08:59 03/14/20 09:28 Heparin Sodium (Porcine) (Heparin 5000 units/ml) 5,000 units EVERY 12 HOURS SUBQ 03/11/20 09:00 04/25/20 08:59 03/13/20 20:49 Insulin Aspart (NovoLOG) Q6HR SUBQ 03/14/20 00:00 06/12/20 00:00 03/14/20 05:06 Iohexol (OMNIPAQUE-300 100ml) 100 ml NOW PRN INJ Radiology Procedure 03/14/20 07:15 03/16/20 07:14 Ondansetron HCl (Zofran) 4 mg Q4H PRN IVP Nausea & Vomiting 03/11/20 06:30 04/10/20 06:29 Vancomycin HCl (Vanco pharmacy to dose) 1 ea DAILY PRN MISC Per rx protocol 03/11/20 06:30 04/10/20 06:29 Vancomycin HCl 750 mg/Dextrose 275 ml @ 183.333 mls/hr Q12H IVPB 03/14/20 04:00 03/19/20 03:59 03/14/20 15:50 Zinc Sulfate (Zinc Sulfate) 220 mg DAILY ORAL 03/13/20 09:00 03/23/20 08:59 03/14/20 09:28 Allergies: Coded Allergies: No Known Allergies (Unverified , 03/11/20) ROS Limited/Unobtainable: Yes Subjective 74 YO F trach dependent admitted with hypoxic respiratory failure. Now pneumonia and sepsis. Cover for Int Med-Dr Lutz. Step down unit. Low grade fever 100.4 F Objective Last Vital Signs Date Time Temp Pulse Resp B/P (MAP) Pulse Ox O2 Delivery O2 Flow Rate FiO2 03/14/20 16:00 Mechanical Ventilator 03/14/20 16:00 98.1 88 18 118/67 (84) 100 03/14/20 15:24 35 Laboratory Tests Test 03/13/20 17:04 03/13/20 21:54 03/13/20 23:48 03/14/20 02:00 Stool Occult Blood Positive (NEGATIVE) POC Whole Blood Glucose 170 MG/DL (74-106) H 143 MG/DL (74-106) H White Blood Count 18.8 K/UL (4.8-10.8) H Red Blood Count 3.39 M/UL (4.20-5.40) L Hemoglobin 9.7 G/DL (12.0-16.0) L Hematocrit 30.4 % (37.0-47.0) L Mean Corpuscular Volume 89 FL (80-99) Mean Corpuscular Hemoglobin 28.7 PG (27.0-31.0) Mean Corpuscular Hemoglobin Concent 32.1 G/DL (32.0-36.0) Red Cell Distribution Width 16.3 % (11.6-14.8) H Platelet Count 389 K/UL (150-450) Mean Platelet Volume 7.6 FL (6.5-10.1) Neutrophils (%) (Auto) % (45.0-75.0) Lymphocytes (%) (Auto) % (20.0-45.0) Monocytes (%) (Auto) % (1.0-10.0) Eosinophils (%) (Auto) % (0.0-3.0) Basophils (%) (Auto) % (0.0-2.0) Differential Total Cells Counted 100 Neutrophils % (Manual) 70 % (45-75) Lymphocytes % (Manual) 21 % (20-45) Monocytes % (Manual) 4 % (1-10) Eosinophils % (Manual) 5 % (0-3) H Basophils % (Manual) 0 % (0-2) Band Neutrophils 0 % (0-8) Platelet Estimate Adequate Platelet Morphology Normal Sodium Level 144 MMOL/L (136-145) Potassium Level 3.3 MMOL/L (3.5-5.1) L Chloride Level 111 MMOL/L (98-107) H Carbon Dioxide Level 25 MMOL/L (21-32) Anion Gap 8 mmol/L (5-15) Blood Urea Nitrogen 14 mg/dL (7-18) Creatinine 0.9 MG/DL (0.55-1.30) Estimat Glomerular Filtration Rate > 60 mL/min (>60) Glucose Level 164 MG/DL (74-106) H Calcium Level 9.5 MG/DL (8.5-10.1) Phosphorus Level 3.0 MG/DL (2.5-4.9) Magnesium Level 1.6 MG/DL (1.8-2.4) L Total Bilirubin 0.3 MG/DL (0.2-1.0) Aspartate Amino Transf (AST/SGOT) 29 U/L (15-37) Alanine Aminotransferase (ALT/SGPT) 43 U/L (12-78) Alkaline Phosphatase 149 U/L (46-116) H Total Protein 6.7 G/DL (6.4-8.2) Albumin 1.3 G/DL (3.4-5.0) L Globulin 5.4 g/dL Albumin/Globulin Ratio 0.2 (1.0-2.7) L Vancomycin Level Trough 11.2 ug/mL (5.0-12.0) Test 03/14/20 05:04 03/14/20 12:00 POC Whole Blood Glucose 170 MG/DL (74-106) H 153 MG/DL (74-106) H Microbiology Date/Time Source Procedure Growth Status 03/13/20 17:04 Stool Clostridium difficile Toxin Assay - Final Complete 03/12/20 10:10 Blood Blood Culture - Preliminary NO GROWTH AFTER 24 HOURS Resulted 03/12/20 09:55 Blood Blood Culture - Preliminary NO GROWTH AFTER 24 HOURS Resulted Intake and Output 03/13/20 03/14/20 19:00 07:00 Intake Total 205 ml 1604.413 ml Output Total 2200 ml 800 ml Balance -1995 ml 804.413 ml Free Water 40 ml IV Total 75 ml 1064.413 ml Tube Feeding 90 ml 540 ml Output Urine Total 2200 ml 800 ml # Bowel Movements 6 1 Objective PHYSICAL EXAMINATION: VITAL SIGNS: Temperature febrile at 101.2 degrees Fahrenheit, pulse 123, respiratory rate 26, blood pressure 98/65. GENERAL: The patient is a thin-appearing female who is intubated and nonverbal. HEENT: Eyes, pupils are equal and responsive to light and accommodation. Extraocular movements are intact. NECK: Supple without lymphadenopathy. Tracheostomy is in place. CHEST: Diffuse wheezes bilaterally without rhonchi. CARDIOVASCULAR: Tachycardic, regular rhythm. S1, S2 are normal without murmurs, rubs, or gallops. ABDOMEN: Soft, nontender, and nondistended. Positive bowel sounds. No evidence of hepatosplenomegaly. Currently, no rebound or guarding noted. EXTREMITIES: Negative for clubbing, cyanosis, or edema. RECTAL/GENITAL: Not performed. NEUROLOGIC: Unable to assess. chest x-ray revealed left lower lobe consolidation consistent with pneumonia Assessment/Plan Assessment/Plan ASSESSMENT: This is a 74-year-old female. 1. Left lower lobe pneumonia. 2. Respiratory failure. 3. Hypernatremia. 4. Renal failure. 5. Hypoxemia. 6. Tracheostomy dependence. 7. Chronic obstructive pulmonary disease. 8. Diabetes type 2. 9. Parkinson disease. 10. Gout. 11. Glaucoma. 12. Sacral decubitus ulcer stage IV. 13. History of intracranial hemorrhage. 14. Hydrocephalus. 15. sepsis=Staph aureus 16. UTI=MDR acenitobacter TREATMENT: 1. Left lower lobe pneumonia/respiratory failure/sepsis. Pulmonary consultation =Dr. Patti Matta. ABX= vancomycin and cefepime. Infectious disease=Dr. Cruz. We will follow recommendations of Infectious Disease and Pulmonary. 2. Hypernatremia. Hypernatremia may be secondary to renal failure versus dehydration. Nephrology consultation =. 3. Renal failure nephrology consultation =Dr. Huntley. 4. Tracheostomy dependence. 5. Chronic obstructive pulmonary disease. 6. Diabetes type 2. NovoLog sliding scale has been instituted. 7. Parkinson disease. 8. Gout. Continue allopurinol as above. 9. Glaucoma. 10. Sacral decubitus ulcer stage IV. A general surgery consultation has been obtained with Dr. Chris Hunter. 11. History of intracranial hemorrhage. Piyush Barajas MD Mar 14, 2020 16:58
--- NOTE | 2020-03-14 17:33 | NUR ---
INSURANCE CLINICALS/REVIEWS FAXED TO [facility] DIRECT [phone]
--- NOTE | 2020-03-14 18:30 | Diagnostic Imaging Report ---
EXAM: CT Abdomen and Pelvis With Intravenous Contrast CLINICAL HISTORY: ABD PAIN TECHNIQUE: Axial computed tomography images of the abdomen and pelvis with intravenous contrast. CTDI is 7.1 mGy and DLP is 380.2 mGy-cm. One or more of the following dose reduction techniques were used: automated exposure control, adjustment of the mA and/or kV according to patient size, use of iterative reconstruction technique. COMPARISON: No relevant prior studies available. FINDINGS: Lung bases: Small nodular focus of cavitation in the right middle lobe. This may be secondary to infection. Recommend continued follow-up. Emphysematous changes in the lung bases. 1.2 cm nodular focus with some central cavitation in the right middle lobe. Pleural space: Small left pleural effusion. Left lower lobe atelectasis. ABDOMEN: Liver: Unremarkable. No mass. Gallbladder and bile ducts: Unremarkable. No calcified stones. No ductal dilation. Pancreas: Unremarkable. No mass. No ductal dilation. Spleen: Spleen is small. Adrenals: Unremarkable. No mass. Kidneys and ureters: Renal cysts and subcentimeter low-attenuation foci, too small to characterize. No hydronephrosis. Stomach and bowel: Unremarkable. No obstruction. No mucosal thickening. PELVIS: Appendix: No findings to suggest acute appendicitis. Bladder: Bladder wall thickening. Foci of gas in the bladder. Correlate for recent instrumentation versus cystitis. Reproductive: Unremarkable as visualized. ABDOMEN and PELVIS: Intraperitoneal space: Unremarkable. No free air. No significant fluid collection. Bones/joints: Sacrococcygeal decubitus ulcers with associated osteomyelitis. There is some underlying bone thinning and sclerosis in the distal sacrum and coccyx underlying the decubitus ulcers. No acute fracture. No dislocation. Soft tissues: Unremarkable. Vasculature: Moderate plaque abdominal aorta and branches. No abdominal aortic aneurysm. Lymph nodes: Unremarkable. No enlarged lymph nodes. Tubes, lines and devices: Gastrostomy tube within the gastric body. IMPRESSION: 1. Sacrococcygeal decubitus ulcers with associated osteomyelitis. 2. Small left pleural effusion. Left lower lobe atelectasis. 3. Bladder wall thickening. Foci of gas in the bladder. Correlate for recent instrumentation versus cystitis.
--- NOTE | 2020-03-14 19:38 | NUR ---
NURSE HAND-OFF REPORT: Important Events on Shift:Patient had CT abdomen and pelviss Patient Status: Stable Diet: Glucerna 1.2@ 45ML/HR continuos Pending Orders: Pending Results/Labs:Ct abdomen/pelvis Pending MD notification: Latest Vital Signs: Temperature 98.1 , Pulse 86 , B/P 118 /67 , Respiratory Rate 23 , O2 SAT 100 , Mechanical Ventilator, O2 Flow Rate . Vital Sign Comment: EKG Rhythm: Sinus Rhythm Rhythm change?: N MD Notified?: - MD Response: Latest Ochoa Fall Score: 50 Fall Risk: High Risk Safety Measures: Call light Within Reach, Bed Alarm Zone 1, Side Rails Side Rails x3, Bed position Low and Locked. Fall Precautions: Yellow Socks Door Sign Patient Fall Education Report given to ADILENE Curiel.
--- NOTE | 2020-03-14 19:39 | NUR ---
NURSE NOTES: received pt from Tlyer EHAD., pt awake, nonverbal at this time. pt is in SR in cardiac rn, Gtube site intact clean, and patent. pt is getting Glucerna 1.2 @ 45ml/hr. call light within reach. suprapubic cath noted, draining well with gravity. will continue to monitor pt with plan of care. bed at the lowest position, alarmed, locked, and side rails x 3 up.right hand 22G and right AC 20G Iv sites intact, clean, and patent. skin alternation noted. no active bleeding noted. will continue to monitor pt with plan of care. bed at the lowest position, alarmed, locked, and side rails x 3 up.
[2020-03-14 20:00] VITALS: BP 125/70
--- NOTE | 2020-03-14 21:10 | NUR ---
NURSE NOTES: pt's daughter at the bedside, updated.
[2020-03-15] VITALS: BP 99/59
--- NOTE | 2020-03-15 | NUR ---
NURSE NOTES: oral care given, applied afia chavira for low temp 95.8 . asymptomatic. pt states pt is not cold. will continue to monitor pt. call light within reach. Addendum: 03/15/20 at 0520 by AISHA HOWELL RN wrong pt
--- NOTE | 2020-03-15 00:10 | NUR ---
NURSE NOTES: repositioned pt Q 2hrs, oral care given. no SOB noted. no active bleeding noted. call light within reach. will continue to monitor pt
[2020-03-15] MEDS: Tylenol #3 tab (300mg/30mg) GT PRN (01:00)
[2020-03-15 04:00] VITALS: BP 107/62
--- NOTE | 2020-03-15 04:00 | NUR ---
NURSE NOTES: oral care given, new gown given, bath given, repositioned pt Q 2hrs. no active bleeding noted. changed pressure ulcer dressings. call light within reach. will continue to monitor pt. no SOB noted.
--- NOTE | 2020-03-15 04:00 | NUR ---
NURSE NOTES: new gown, new blanket provided. pt has 2 large BM, brown, without bleeding noted at this time. repositioned Q 2hrs. dressing sites chagned for pressure ulcer. pt states no pain at this time. call light within reach. untied bilateral wrist restrains to stretch pt's arms. Addendum: 03/15/20 at 0519 by AISHA HOWELL RN wrong pt
[2020-03-15] MEDS: Vancomycin 750mg/D5W 275ml IVPB SCH ×2 (04:40)
[2020-03-15] MEDS: NovoLOG Insulin Flexpen SUBQ SCH ×4 (05:30→17:32)
[2020-03-15 05:50] LABS: HEMATOCRIT 30.7 % (37.0-47.0); HEMOGLOBIN 9.5 G/DL (12.0-16.0); MEAN CORPUSCULAR VOLUME 91 FL (80-99); PLATELET COUNT 439 K/UL (150-450); RED BLOOD COUNT 3.39 M/UL (4.20-5.40); RED CELL DISTRIBUTION WIDTH 16.9 % (11.6-14.8); WHITE BLOOD COUNT 18.7 K/UL (4.8-10.8)
[2020-03-15 06:10] LABS: ALANINE AMINOTRANSFERASE 32 U/L (12-78); ALBUMIN 1.3 G/DL (3.4-5.0); ALBUMIN/GLOBULIN RATIO 0.2 (1.0-2.7); ALKALINE PHOSPHATASE 135 U/L (46-116); ASPARTATE AMINO TRANSFERASE 19 U/L (15-37); BILIRUBIN,TOTAL 0.2 MG/DL (0.2-1.0); BLOOD UREA NITROGEN 11 mg/dL (7-18); CALCIUM 8.3 MG/DL (8.5-10.1); CARBON DIOXIDE 28 MMOL/L (21-32); CHLORIDE 107 MMOL/L (98-107); CREATININE 0.8 MG/DL (0.55-1.30); PHOSPHORUS 2.9 MG/DL (2.5-4.9); POTASSIUM 3.7 MMOL/L (3.5-5.1); SODIUM 140 MMOL/L (136-145)
--- NOTE | 2020-03-15 07:33 | NUR ---
NURSE NOTES: Handoff received from ADILENE Curiel. Patient received resting in bed, patient is on ventilator, non verbal due to trach with settings: Portex 7, AC16 TV400, FI02 35% and PEEP of 5, tolerating well with no signs of distress and saturation of 100%. Patient opens eyes to name. G tube feeding of Glucerna 1.2 @ 45 continuos. Suprapubic catheter patent and draining to gravity. monitoring coordinator is on with HR of 88 SR. patient is placed on contact and aspiration and fall risk precautions with bed in the low and locked position, call light within reach, skin issues noted. IV site is running D5W@ 75ML/HR will follow plan of care.
--- NOTE | 2020-03-15 07:39 | Infectious Diseases Prog Note ---
Assessment/Plan 74yo F with: Febrile Leukocytosis Sepsis Left lower lung infiltrate Acute on chronic resp failure SP trach MRSA bacteremia 03/11 BCx +MRSA Resp cx +PsA (colonizer given on minimal vent settings, no pna on imaging) UCx 30-40k ACB (colonizer) COVID rapid Ag neg CXR: Midline tracheostomy. Small left pleural effusion. Hyperinflation with flattening of the diaphragms and emphysema, consistent with COPD. No lobar infiltrate. 03/12 BCx NTD 03/13 C.dif neg 03/13 BCx NTD 03/14 BCx NTD 03/14 CT A/P: 1. Sacrococcygeal decubitus ulcers with associated osteomyelitis. 2. Small left pleural effusion. Left lower lobe atelectasis. 3. Bladder wall thickening. Foci of gas in the bladder. Correlate for recent instrumentation versus cystitis. 03/14 TTE: No vegetations, thickened valves MRSA nares positive VDRF S/p trach/PEG Bed bound Sacral decub ulceration w/ underlying OM Plan: Cont vancomycin #5 for MRSA bacteremia, duration TBD Recommend DEBBIE given MRSA bacteremia of community onset without clear source F/u repeat BCx to ensure clearance of bacteremia Trend WBC 03/14 SP cefepime #4 Monitor CBC/CMP Monitor temp curve, hemodynamics Monitor resp status D/w RN Thank you for this consult. [facility] will continue to follow. Subjective Allergies: Coded Allergies: No Known Allergies (Unverified , 03/11/20) Ongoing fever to 100.4 WBC stable at 18 NAD on vent, 35% PEEP 5 Objective Last 24 Hour Vital Signs Date Time Temp Pulse Resp B/P (MAP) Pulse Ox O2 Delivery O2 Flow Rate FiO2 03/15/20 04:48 83 23 35 03/15/20 04:00 99.7 89 19 107/62 (77) 100 03/15/20 04:00 100 03/15/20 03:49 83 03/15/20 02:55 85 25 35 03/15/20 00:54 90 32 35 03/15/20 00:00 Mechanical Ventilator 03/15/20 00:00 80 03/15/20 00:00 99.3 91 21 99/59 (72) 100 03/14/20 23:01 92 30 35 03/14/20 20:46 84 25 35 03/14/20 20:14 82 03/14/20 20:00 99.0 90 18 125/70 (88) 100 03/14/20 18:33 86 23 35 03/14/20 17:32 88 27 35 03/14/20 16:00 Mechanical Ventilator 03/14/20 16:00 86 03/14/20 16:00 98.1 88 18 118/67 (84) 100 03/14/20 15:24 88 26 35 03/14/20 13:23 113 25 35 03/14/20 12:00 Mechanical Ventilator 03/14/20 12:00 98 03/14/20 11:52 100.4 97 19 129/66 (87) 100 03/14/20 11:29 95 24 35 03/14/20 09:28 80 24 35 03/14/20 09:28 89 126/67 03/14/20 09:18 Mechanical Ventilator 03/14/20 08:00 97.7 89 22 126/67 (86) 100 03/14/20 08:00 77 Height (Feet): 5 Height (Inches): 5.00 Weight (Pounds): 147 Gen: NAD in bed HEENT: NCAT, trach CV: RRR Pulm: CTAB Abd: Soft, NTND, +PEG Ext: No c/c/e Skin: Stage 4 sacral decub ulceration, clean Neuro: Sleeping, not interactive Microbiology Date/Time Source Procedure Growth Status 03/14/20 02:00 Blood Blood Culture - Preliminary NO GROWTH AFTER 24 HOURS Resulted 03/13/20 17:04 Stool Clostridium difficile Toxin Assay - Final Complete 03/13/20 10:55 Blood Blood Culture - Preliminary NO GROWTH AFTER 24 HOURS Resulted 03/13/20 10:55 Blood Blood Culture - Preliminary NO GROWTH AFTER 24 HOURS Resulted 03/12/20 10:10 Blood Blood Culture - Preliminary NO GROWTH AFTER 48 HOURS Resulted 03/12/20 09:55 Blood Blood Culture - Preliminary NO GROWTH AFTER 48 HOURS Resulted Laboratory Tests Test 03/14/20 12:00 03/15/20 00:44 03/15/20 04:48 03/15/20 05:00 POC Whole Blood Glucose 153 MG/DL (74-106) H 122 MG/DL (74-106) H 172 MG/DL (74-106) H White Blood Count 18.7 K/UL (4.8-10.8) H Red Blood Count 3.39 M/UL (4.20-5.40) L Hemoglobin 9.5 G/DL (12.0-16.0) L Hematocrit 30.7 % (37.0-47.0) L Mean Corpuscular Volume 91 FL (80-99) Mean Corpuscular Hemoglobin 28.0 PG (27.0-31.0) Mean Corpuscular Hemoglobin Concent 30.9 G/DL (32.0-36.0) L Red Cell Distribution Width 16.9 % (11.6-14.8) H Platelet Count 439 K/UL (150-450) Mean Platelet Volume 8.0 FL (6.5-10.1) Neutrophils (%) (Auto) % (45.0-75.0) Lymphocytes (%) (Auto) % (20.0-45.0) Monocytes (%) (Auto) % (1.0-10.0) Eosinophils (%) (Auto) % (0.0-3.0) Basophils (%) (Auto) % (0.0-2.0) Neutrophils % (Manual) Pending Lymphocytes % (Manual) Pending Platelet Estimate Pending Platelet Morphology Pending Erythrocyte Sedimentation Rate 119 MM/HR (0-30) H Sodium Level 140 MMOL/L (136-145) Potassium Level 3.7 MMOL/L (3.5-5.1) Chloride Level 107 MMOL/L (98-107) Carbon Dioxide Level 28 MMOL/L (21-32) Blood Urea Nitrogen 11 mg/dL (7-18) Creatinine 0.8 MG/DL (0.55-1.30) Estimat Glomerular Filtration Rate > 60 mL/min (>60) Glucose Level 179 MG/DL (74-106) H Uric Acid 3.1 MG/DL (2.6-7.2) Calcium Level 8.3 MG/DL (8.5-10.1) L Phosphorus Level 2.9 MG/DL (2.5-4.9) Magnesium Level 2.2 MG/DL (1.8-2.4) Total Bilirubin 0.2 MG/DL (0.2-1.0) Aspartate Amino Transf (AST/SGOT) 19 U/L (15-37) Alanine Aminotransferase (ALT/SGPT) 32 U/L (12-78) Alkaline Phosphatase 135 U/L (46-116) H C-Reactive Protein, Quantitative 15.4 mg/dL (0.00-0.90) H Total Protein 6.5 G/DL (6.4-8.2) Albumin 1.3 G/DL (3.4-5.0) L Globulin 5.2 g/dL Albumin/Globulin Ratio 0.2 (1.0-2.7) L Current Medications Medications (Trade) Dose Ordered Sig/Zaki Route PRN Reason Start Time Stop Time Status Last Admin Dose Admin Acetaminophen (Tylenol) 650 mg Q6H PRN GT Temp >100.5, Mild Pain 03/11/20 06:30 04/10/20 06:29 03/14/20 01:23 Acetaminophen/ Codeine Phosphate (Tylenol #3) 1 tab Q6H PRN GT For Mod-Severe Pain 03/11/20 06:30 03/18/20 06:29 03/15/20 01:00 Amlodipine Besylate (Norvasc) 10 mg DAILY GT 03/11/20 09:00 04/10/20 08:59 03/14/20 09:28 Aspirin (ASA) 81 mg DAILY GT 03/11/20 09:00 04/25/20 08:59 03/14/20 09:28 Barium Sulfate (Readi-Cat 2) 450 ml NOW PRN ORAL Radiology Procedure 03/14/20 07:15 03/16/20 07:14 Calcitonin [place] (Miacalcin) 1 sprays DAILY NASAL 03/13/20 11:00 06/11/20 10:59 03/14/20 09:30 Dextrose 1,000 ml @ 75 mls/hr [id number] IV 03/12/20 13:45 04/11/20 13:44 03/14/20 20:00 Dextrose (Dextrose 50%) 25 ml Q30M PRN IV Hypoglycemia 03/13/20 23:30 06/11/20 23:29 Dextrose (Dextrose 50%) 50 ml Q30M PRN IV Hypoglycemia 03/13/20 23:30 06/11/20 23:29 Diphenhydramine HCl (Benadryl) 25 mg Q8H PRN ORAL Itching 03/14/20 15:00 04/13/20 14:59 03/14/20 15:50 Famotidine (Pepcid) 40 mg BID GT 03/12/20 18:00 06/09/20 08:59 03/14/20 18:07 Heparin Sodium (Porcine) (Heparin 5000 units/ml) 5,000 units EVERY 12 HOURS SUBQ 03/11/20 09:00 04/25/20 08:59 03/13/20 20:49 Insulin Aspart (NovoLOG) Q6HR SUBQ 03/14/20 00:00 06/12/20 00:00 03/15/20 05:30 Iohexol (OMNIPAQUE-300 100ml) 100 ml NOW PRN INJ Radiology Procedure 03/14/20 07:15 03/16/20 07:14 Ondansetron HCl (Zofran) 4 mg Q4H PRN IVP Nausea & Vomiting 03/11/20 06:30 04/10/20 06:29 Vancomycin HCl (Vanco pharmacy to dose) 1 ea DAILY PRN MISC Per rx protocol 03/11/20 06:30 04/10/20 06:29 Vancomycin HCl 750 mg/Dextrose 275 ml @ 183.333 mls/hr Q12H IVPB 03/14/20 04:00 03/19/20 03:59 03/15/20 04:40 Zinc Sulfate (Zinc Sulfate) 220 mg DAILY ORAL 03/13/20 09:00 03/23/20 08:59 03/14/20 09:28 Shirley Villegas M.D. Mar 15, 2020 07:39
--- NOTE | 2020-03-15 07:40 | NUR ---
NURSE HAND-OFF REPORT: Important Events on Shift:[low grade fever] Patient Status: [stable] Diet: [glucerna 1.2 @ 45ml/hr] Pending Orders: [n/a] Pending Results/Labs:[n/a] Pending MD notification:[n/a] Latest Vital Signs: Temperature 99.7 , Pulse 83 , B/P 107 /62 , Respiratory Rate 23 , O2 SAT 100 , Mechanical Ventilator, O2 Flow Rate . Vital Sign Comment: [stable] EKG Rhythm: Sinus Rhythm Rhythm change?: N MD Notified?: - MD Response: Latest Ochoa Fall Score: 50 Fall Risk: High Risk Safety Measures: Call light Within Reach, Bed Alarm Zone 1, Side Rails Side Rails x3, Bed position Low and Locked. Fall Precautions: Yellow Socks Door Sign Patient Fall Education Report given to [Tyler HEAD].
[2020-03-15 08:00] VITALS: BP 119/62
[2020-03-15] MEDS: Zinc Sulfate 220mg ORAL SCH (08:30)
[2020-03-15] MEDS: Aspirin Baby 81mg GT SCH (08:31)
[2020-03-15] MEDS: Heparin 5000 units/ml inj SUBQ SCH ×3 (08:32→20:02)
--- NOTE | 2020-03-15 08:49 | NUR ---
NURSE NOTES:Non-administered Heparin as patient positive for stool OB and hematocrit and hemoglobin have continued to drop.
--- NOTE | 2020-03-15 10:54 | NUR ---
NURSE NOTES:Dr Villegas rounded on patient and recommends Transesophageal echocardiogram, asked to recommend this to the primary MD. Contacted Dr Green to let him know of Dr Villegas's recommendation.
--- NOTE | 2020-03-15 11:30 | Internal Med Progress Note ---
Subjective Date of Service: Mar 15, 2020 Physician Name JennPiyush Attending Physician Jesus Lutz MD Current Medications Medications (Trade) Dose Ordered Sig/Zaki Route PRN Reason Start Time Stop Time Status Last Admin Dose Admin Acetaminophen (Tylenol) 650 mg Q6H PRN GT Temp >100.5, Mild Pain 03/11/20 06:30 04/10/20 06:29 03/14/20 01:23 Acetaminophen/ Codeine Phosphate (Tylenol #3) 1 tab Q6H PRN GT For Mod-Severe Pain 03/11/20 06:30 03/18/20 06:29 03/15/20 01:00 Amlodipine Besylate (Norvasc) 10 mg DAILY GT 03/11/20 09:00 04/10/20 08:59 03/15/20 08:30 Aspirin (ASA) 81 mg DAILY GT 03/11/20 09:00 04/25/20 08:59 03/15/20 08:31 Barium Sulfate (Readi-Cat 2) 450 ml NOW PRN ORAL Radiology Procedure 03/14/20 07:15 03/16/20 07:14 Calcitonin [place] (Miacalcin) 1 sprays DAILY NASAL 03/13/20 11:00 06/11/20 10:59 03/15/20 08:33 Dextrose 1,000 ml @ 75 mls/hr [id number] IV 03/12/20 13:45 04/11/20 13:44 03/15/20 08:08 Dextrose (Dextrose 50%) 25 ml Q30M PRN IV Hypoglycemia 03/13/20 23:30 06/11/20 23:29 Dextrose (Dextrose 50%) 50 ml Q30M PRN IV Hypoglycemia 03/13/20 23:30 06/11/20 23:29 Diphenhydramine HCl (Benadryl) 25 mg Q8H PRN ORAL Itching 03/14/20 15:00 04/13/20 14:59 03/14/20 15:50 Famotidine (Pepcid) 40 mg BID GT 03/12/20 18:00 06/09/20 08:59 03/15/20 08:31 Heparin Sodium (Porcine) (Heparin 5000 units/ml) 5,000 units EVERY 12 HOURS SUBQ 03/11/20 09:00 04/25/20 08:59 03/13/20 20:49 Insulin Aspart (NovoLOG) Q6HR SUBQ 03/14/20 00:00 06/12/20 00:00 03/15/20 05:30 Iohexol (OMNIPAQUE-300 100ml) 100 ml NOW PRN INJ Radiology Procedure 03/14/20 07:15 03/16/20 07:14 Ondansetron HCl (Zofran) 4 mg Q4H PRN IVP Nausea & Vomiting 03/11/20 06:30 04/10/20 06:29 Vancomycin HCl (Vanco pharmacy to dose) 1 ea DAILY PRN MISC Per rx protocol 03/11/20 06:30 04/10/20 06:29 Vancomycin HCl 750 mg/Dextrose 275 ml @ 183.333 mls/hr Q12H IVPB 03/14/20 04:00 03/19/20 03:59 03/15/20 04:40 Zinc Sulfate (Zinc Sulfate) 220 mg DAILY ORAL 03/13/20 09:00 03/23/20 08:59 03/15/20 08:30 Allergies: Coded Allergies: No Known Allergies (Unverified , 03/11/20) ROS Limited/Unobtainable: Yes Subjective 74 YO F trach dependent admitted with hypoxic respiratory failure. Now pneumonia and sepsis. Cover for Int Med-Dr Lutz. Step down unit. Objective Last Vital Signs Date Time Temp Pulse Resp B/P (MAP) Pulse Ox O2 Delivery O2 Flow Rate FiO2 03/15/20 09:04 83 24 35 03/15/20 08:30 119/62 03/15/20 08:00 99.1 100 03/15/20 07:54 Mechanical Ventilator Laboratory Tests Test 03/14/20 12:00 03/15/20 00:44 03/15/20 04:48 03/15/20 05:00 POC Whole Blood Glucose 153 MG/DL (74-106) H 122 MG/DL (74-106) H 172 MG/DL (74-106) H White Blood Count 18.7 K/UL (4.8-10.8) H Red Blood Count 3.39 M/UL (4.20-5.40) L Hemoglobin 9.5 G/DL (12.0-16.0) L Hematocrit 30.7 % (37.0-47.0) L Mean Corpuscular Volume 91 FL (80-99) Mean Corpuscular Hemoglobin 28.0 PG (27.0-31.0) Mean Corpuscular Hemoglobin Concent 30.9 G/DL (32.0-36.0) L Red Cell Distribution Width 16.9 % (11.6-14.8) H Platelet Count 439 K/UL (150-450) Mean Platelet Volume 8.0 FL (6.5-10.1) Neutrophils (%) (Auto) % (45.0-75.0) Lymphocytes (%) (Auto) % (20.0-45.0) Monocytes (%) (Auto) % (1.0-10.0) Eosinophils (%) (Auto) % (0.0-3.0) Basophils (%) (Auto) % (0.0-2.0) Differential Total Cells Counted 100 Neutrophils % (Manual) 80 % (45-75) H Lymphocytes % (Manual) 12 % (20-45) L Monocytes % (Manual) 3 % (1-10) Eosinophils % (Manual) 5 % (0-3) H Basophils % (Manual) 0 % (0-2) Band Neutrophils 0 % (0-8) Platelet Estimate Increased H Platelet Morphology Normal Hypochromasia 1+ Anisocytosis 1+ Erythrocyte Sedimentation Rate 119 MM/HR (0-30) H Sodium Level 140 MMOL/L (136-145) Potassium Level 3.7 MMOL/L (3.5-5.1) Chloride Level 107 MMOL/L (98-107) Carbon Dioxide Level 28 MMOL/L (21-32) Blood Urea Nitrogen 11 mg/dL (7-18) Creatinine 0.8 MG/DL (0.55-1.30) Estimat Glomerular Filtration Rate > 60 mL/min (>60) Glucose Level 179 MG/DL (74-106) H Uric Acid 3.1 MG/DL (2.6-7.2) Calcium Level 8.3 MG/DL (8.5-10.1) L Phosphorus Level 2.9 MG/DL (2.5-4.9) Magnesium Level 2.2 MG/DL (1.8-2.4) Total Bilirubin 0.2 MG/DL (0.2-1.0) Aspartate Amino Transf (AST/SGOT) 19 U/L (15-37) Alanine Aminotransferase (ALT/SGPT) 32 U/L (12-78) Alkaline Phosphatase 135 U/L (46-116) H C-Reactive Protein, Quantitative 15.4 mg/dL (0.00-0.90) H Total Protein 6.5 G/DL (6.4-8.2) Albumin 1.3 G/DL (3.4-5.0) L Globulin 5.2 g/dL Albumin/Globulin Ratio 0.2 (1.0-2.7) L Microbiology Date/Time Source Procedure Growth Status 03/14/20 02:00 Blood Blood Culture - Preliminary NO GROWTH AFTER 24 HOURS Resulted 03/13/20 17:04 Stool Clostridium difficile Toxin Assay - Final Complete 03/13/20 10:55 Blood Blood Culture - Preliminary NO GROWTH AFTER 24 HOURS Resulted 03/13/20 10:55 Blood Blood Culture - Preliminary NO GROWTH AFTER 24 HOURS Resulted Intake and Output 03/14/20 03/15/20 19:00 07:00 Intake Total 990 ml 1795.000 ml Output Total 2200 ml Balance 990 ml -405.000 ml Free Water 180 ml 200 ml IV Total 675 ml 1100.000 ml Tube Feeding 135 ml 495 ml Output Urine Total 2200 ml # Bowel Movements 3 Objective PHYSICAL EXAMINATION: VITAL SIGNS: Temperature febrile at 101.2 degrees Fahrenheit, pulse 123, respiratory rate 26, blood pressure 98/65. GENERAL: The patient is a thin-appearing female who is intubated and nonverbal. HEENT: Eyes, pupils are equal and responsive to light and accommodation. Extraocular movements are intact. NECK: Supple without lymphadenopathy. Tracheostomy is in place. CHEST: Diffuse wheezes bilaterally without rhonchi. CARDIOVASCULAR: Tachycardic, regular rhythm. S1, S2 are normal without murmurs, rubs, or gallops. ABDOMEN: Soft, nontender, and nondistended. Positive bowel sounds. No evidence of hepatosplenomegaly. Currently, no rebound or guarding noted. EXTREMITIES: Negative for clubbing, cyanosis, or edema. RECTAL/GENITAL: Not performed. NEUROLOGIC: Unable to assess. chest x-ray revealed left lower lobe consolidation consistent with pneumonia Assessment/Plan Assessment/Plan ASSESSMENT: This is a 74-year-old female. 1. Left lower lobe pneumonia. 2. Respiratory failure. 3. Hypernatremia. 4. Renal failure. 5. Hypoxemia. 6. Tracheostomy dependence. 7. Chronic obstructive pulmonary disease. 8. Diabetes type 2. 9. Parkinson disease. 10. Gout. 11. Glaucoma. 12. Sacral decubitus ulcer stage IV. 13. History of intracranial hemorrhage. 14. Hydrocephalus. 15. sepsis=MRSA 16. UTI=MDR acenitobacter TREATMENT: 1. Left lower lobe pneumonia/respiratory failure/sepsis. Pulmonary consultation =Dr. Patti Matta. ABX= vancomycin Infectious disease=Dr. Cruz. We will follow recommendations of Infectious Disease and Pulmonary. 2. Hypernatremia. Hypernatremia may be secondary to renal failure versus dehydration. Nephrology consultation =. 3. Renal failure nephrology consultation =Dr. Huntley. 4. Tracheostomy dependence. 5. Chronic obstructive pulmonary disease. 6. Diabetes type 2. NovoLog sliding scale has been instituted. 7. Parkinson disease. 8. Gout. Continue allopurinol as above. 9. Glaucoma. 10. Sacral decubitus ulcer stage IV. A general surgery consultation has been obtained with Dr. Chris Hunter. 11. History of intracranial hemorrhage. 12. Await DEBBIE; cardiology=Piyush Westfall MD Mar 15, 2020 11:30
--- NOTE | 2020-03-15 11:58 | Pulmonolgy Critical Care Note ---
Critical Care - Asmt/Plan Problems: (1) Acute on chronic respiratory failure (2) Sepsis (3) Chronic respiratory failure requiring continuous mechanical ventilation through tracheostomy (4) Stage 4 decubitus ulcer (5) Diabetes mellitus (6) Parkinson's disease dementia (7) Gout (8) Idiopathic obstructive hydrocephalus (9) Severe protein-calorie malnutrition (10) History of intracranial hemorrhage (11) Chronic vegetative state Respiratory: monitor respiratory rate, adjust FIO2, CXR Cardiac: continue to monitor HR/BP Renal: F/U I&O, check electrolytes Infectious Disease: check cultures Gastrointestinal: continue feedings/current rate Endocrine: monitor blood sugar Hematologic: monitor H/H Neurologic: PRN Ativan, PRN Morphine Prophylaxis: Protonix, Heparin Notes Reviewed: kosher dietary service supervisor, cardio Discussed with: nurses, consultants, employment case managersenior safety support manager - Objective Last 24 Hour Vital Signs Date Time Temp Pulse Resp B/P (MAP) Pulse Ox O2 Delivery O2 Flow Rate FiO2 03/15/20 09:04 83 24 35 03/15/20 08:30 88 119/62 03/15/20 08:00 99.1 88 22 119/62 (81) 100 03/15/20 08:00 85 03/15/20 07:54 Mechanical Ventilator 03/15/20 07:08 83 24 35 03/15/20 04:48 83 23 35 03/15/20 04:00 99.7 89 19 107/62 (77) 100 03/15/20 04:00 100 03/15/20 03:49 83 03/15/20 02:55 85 25 35 03/15/20 00:54 90 32 35 03/15/20 00:00 Mechanical Ventilator 03/15/20 00:00 80 03/15/20 00:00 99.3 91 21 99/59 (72) 100 03/14/20 23:01 92 30 35 03/14/20 20:46 84 25 35 03/14/20 20:14 82 03/14/20 20:00 99.0 90 18 125/70 (88) 100 03/14/20 18:33 86 23 35 03/14/20 17:32 88 27 35 03/14/20 16:00 Mechanical Ventilator 03/14/20 16:00 86 03/14/20 16:00 98.1 88 18 118/67 (84) 100 03/14/20 15:24 88 26 35 11/17/20 13:23 113 25 35 03/14/20 12:00 Mechanical Ventilator 03/14/20 12:00 98 Status: sedated Condition: critical HEENT: atraumatic, normocephalic Abdomen: soft, active bowel sounds Extremities: no C/C/E Micro: Microbiology Date/Time Source Procedure Growth Status 03/14/20 02:00 Blood Blood Culture - Preliminary NO GROWTH AFTER 24 HOURS Resulted 03/13/20 17:04 Stool Clostridium difficile Toxin Assay - Final Complete 03/13/20 10:55 Blood Blood Culture - Preliminary NO GROWTH AFTER 24 HOURS Resulted 03/13/20 10:55 Blood Blood Culture - Preliminary NO GROWTH AFTER 24 HOURS Resulted Accucheck: 172 Critical Care - Subjective ROS Limited/Unobtainable: Yes Condition: critical EKG Rhythm: Sinus Rhythm FI02: 35 Vent Support Breath Rate: 16 Vent Support Mode: AC Vent Tidal Volume: 400 Sputum Amount: Small PEEP: 5.0 PIP: 20 Tube Feeding Amount: 45 I&O: Intake and Output 03/14/20 03/15/20 19:00 07:00 Intake Total 990 ml 1795.000 ml Output Total 2200 ml Balance 990 ml -405.000 ml Free Water 180 ml 200 ml IV Total 675 ml 1100.000 ml Tube Feeding 135 ml 495 ml Output Urine Total 2200 ml # Bowel Movements 3 CXR: no changes Labs: Laboratory Tests Test 03/14/20 12:00 03/15/20 00:44 03/15/20 04:48 03/15/20 05:00 POC Whole Blood Glucose 153 MG/DL (74-106) H 122 MG/DL (74-106) H 172 MG/DL (74-106) H White Blood Count 18.7 K/UL (4.8-10.8) H Red Blood Count 3.39 M/UL (4.20-5.40) L Hemoglobin 9.5 G/DL (12.0-16.0) L Hematocrit 30.7 % (37.0-47.0) L Mean Corpuscular Volume 91 FL (80-99) Mean Corpuscular Hemoglobin 28.0 PG (27.0-31.0) Mean Corpuscular Hemoglobin Concent 30.9 G/DL (32.0-36.0) L Red Cell Distribution Width 16.9 % (11.6-14.8) H Platelet Count 439 K/UL (150-450) Mean Platelet Volume 8.0 FL (6.5-10.1) Neutrophils (%) (Auto) % (45.0-75.0) Lymphocytes (%) (Auto) % (20.0-45.0) Monocytes (%) (Auto) % (1.0-10.0) Eosinophils (%) (Auto) % (0.0-3.0) Basophils (%) (Auto) % (0.0-2.0) Differential Total Cells Counted 100 Neutrophils % (Manual) 80 % (45-75) H Lymphocytes % (Manual) 12 % (20-45) L Monocytes % (Manual) 3 % (1-10) Eosinophils % (Manual) 5 % (0-3) H Basophils % (Manual) 0 % (0-2) Band Neutrophils 0 % (0-8) Platelet Estimate Increased H Platelet Morphology Normal Hypochromasia 1+ Anisocytosis 1+ Erythrocyte Sedimentation Rate 119 MM/HR (0-30) H Sodium Level 140 MMOL/L (136-145) Potassium Level 3.7 MMOL/L (3.5-5.1) Chloride Level 107 MMOL/L (98-107) Carbon Dioxide Level 28 MMOL/L (21-32) Blood Urea Nitrogen 11 mg/dL (7-18) Creatinine 0.8 MG/DL (0.55-1.30) Estimat Glomerular Filtration Rate > 60 mL/min (>60) Glucose Level 179 MG/DL (74-106) H Uric Acid 3.1 MG/DL (2.6-7.2) Calcium Level 8.3 MG/DL (8.5-10.1) L Phosphorus Level 2.9 MG/DL (2.5-4.9) Magnesium Level 2.2 MG/DL (1.8-2.4) Total Bilirubin 0.2 MG/DL (0.2-1.0) Aspartate Amino Transf (AST/SGOT) 19 U/L (15-37) Alanine Aminotransferase (ALT/SGPT) 32 U/L (12-78) Alkaline Phosphatase 135 U/L (46-116) H C-Reactive Protein, Quantitative 15.4 mg/dL (0.00-0.90) H Total Protein 6.5 G/DL (6.4-8.2) Albumin 1.3 G/DL (3.4-5.0) L Globulin 5.2 g/dL Albumin/Globulin Ratio 0.2 (1.0-2.7) L Test 03/15/20 11:57 POC Whole Blood Glucose Pending Patti Matta MD Mar 15, 2020 11:58
[2020-03-15 12:00] VITALS: BP 120/58
--- NOTE | 2020-03-15 12:10 | NUR ---
NURSE NOTES:IV fluids stopped per MD order to discontinue.
--- NOTE | 2020-03-15 12:55 | NUR ---
NURSE NOTES: Called patient's daughter Duy Craven to get consent for the Transesophageal echocardiogram, but patient would like to speak to the MD. Cannot get informed consent at this time.
--- NOTE | 2020-03-15 13:27 | Surgery Progress Note ---
Surgery Progress Note Subjective Additional Comments CT noted wbc 18k no n/v Objective Last 24 Hour Vital Signs Date Time Temp Pulse Resp B/P (MAP) Pulse Ox O2 Delivery O2 Flow Rate FiO2 03/15/20 12:00 Mechanical Ventilator 03/15/20 12:00 98.2 95 22 120/58 (78) 100 03/15/20 12:00 84 03/15/20 09:04 83 24 35 03/15/20 08:30 88 119/62 03/15/20 08:00 99.1 88 22 119/62 (81) 100 03/15/20 08:00 85 03/15/20 07:54 Mechanical Ventilator 03/15/20 07:08 83 24 35 03/15/20 04:48 83 23 35 03/15/20 04:00 99.7 89 19 107/62 (77) 100 03/15/20 04:00 100 03/15/20 03:49 83 03/15/20 02:55 85 25 35 03/15/20 00:54 90 32 35 03/15/20 00:00 Mechanical Ventilator 03/15/20 00:00 80 03/15/20 00:00 99.3 91 21 99/59 (72) 100 03/14/20 23:01 92 30 35 03/14/20 20:46 84 25 35 03/14/20 20:14 82 03/14/20 20:00 99.0 90 18 125/70 (88) 100 03/14/20 18:33 86 23 35 03/14/20 17:32 88 27 35 03/14/20 16:00 Mechanical Ventilator 03/14/20 16:00 86 03/14/20 16:00 98.1 88 18 118/67 (84) 100 03/14/20 15:24 88 26 35 I&O Intake and Output 03/14/20 03/15/20 19:00 07:00 Intake Total 990 ml 1870.000 ml Output Total 2200 ml Balance 990 ml -330.000 ml Free Water 180 ml 200 ml IV Total 675 ml 1175.000 ml Tube Feeding 135 ml 495 ml Output Urine Total 2200 ml # Bowel Movements 3 Dressing: saturated Cardiovascular: RSR Respiratory: decreased breath sounds Abdomen: soft, non-tender, present bowel sounds Extremities: no tenderness, no cyanosis Laboratory Tests Test 03/15/20 00:44 03/15/20 04:48 03/15/20 05:00 03/15/20 11:57 POC Whole Blood Glucose 122 MG/DL (74-106) H 172 MG/DL (74-106) H 157 MG/DL (74-106) H White Blood Count 18.7 K/UL (4.8-10.8) H Red Blood Count 3.39 M/UL (4.20-5.40) L Hemoglobin 9.5 G/DL (12.0-16.0) L Hematocrit 30.7 % (37.0-47.0) L Mean Corpuscular Volume 91 FL (80-99) Mean Corpuscular Hemoglobin 28.0 PG (27.0-31.0) Mean Corpuscular Hemoglobin Concent 30.9 G/DL (32.0-36.0) L Red Cell Distribution Width 16.9 % (11.6-14.8) H Platelet Count 439 K/UL (150-450) Mean Platelet Volume 8.0 FL (6.5-10.1) Neutrophils (%) (Auto) % (45.0-75.0) Lymphocytes (%) (Auto) % (20.0-45.0) Monocytes (%) (Auto) % (1.0-10.0) Eosinophils (%) (Auto) % (0.0-3.0) Basophils (%) (Auto) % (0.0-2.0) Differential Total Cells Counted 100 Neutrophils % (Manual) 80 % (45-75) H Lymphocytes % (Manual) 12 % (20-45) L Monocytes % (Manual) 3 % (1-10) Eosinophils % (Manual) 5 % (0-3) H Basophils % (Manual) 0 % (0-2) Band Neutrophils 0 % (0-8) Platelet Estimate Increased H Platelet Morphology Normal Hypochromasia 1+ Anisocytosis 1+ Erythrocyte Sedimentation Rate 119 MM/HR (0-30) H Sodium Level 140 MMOL/L (136-145) Potassium Level 3.7 MMOL/L (3.5-5.1) Chloride Level 107 MMOL/L (98-107) Carbon Dioxide Level 28 MMOL/L (21-32) Blood Urea Nitrogen 11 mg/dL (7-18) Creatinine 0.8 MG/DL (0.55-1.30) Estimat Glomerular Filtration Rate > 60 mL/min (>60) Glucose Level 179 MG/DL (74-106) H Uric Acid 3.1 MG/DL (2.6-7.2) Calcium Level 8.3 MG/DL (8.5-10.1) L Phosphorus Level 2.9 MG/DL (2.5-4.9) Magnesium Level 2.2 MG/DL (1.8-2.4) Total Bilirubin 0.2 MG/DL (0.2-1.0) Aspartate Amino Transf (AST/SGOT) 19 U/L (15-37) Alanine Aminotransferase (ALT/SGPT) 32 U/L (12-78) Alkaline Phosphatase 135 U/L (46-116) H C-Reactive Protein, Quantitative 15.4 mg/dL (0.00-0.90) H Total Protein 6.5 G/DL (6.4-8.2) Albumin 1.3 G/DL (3.4-5.0) L Globulin 5.2 g/dL Albumin/Globulin Ratio 0.2 (1.0-2.7) L Plan Problems: (1) Hypernatremia (2) Sepsis (3) UTI (urinary tract infection) (4) Stage 4 decubitus ulcer Assessment & Plan: Stage 4 ulcer on admission. macerated edges. serous drainage. foul odor. no active infection Tx plan: wash with NS. apply therahoney gauze and dressing daily change prn saturation CT noted. osteo in sacrum cont abx osteo chronic will monitor and asses if debridement needed ABDOMEN: Liver: Unremarkable. No mass. Gallbladder and bile ducts: Unremarkable. No calcified stones. No ductal dilation. Pancreas: Unremarkable. No mass. No ductal dilation. Spleen: Spleen is small. Adrenals: Unremarkable. No mass. Kidneys and ureters: Renal cysts and subcentimeter low-attenuation foci, too small to characterize. No hydronephrosis. Stomach and bowel: Unremarkable. No obstruction. No mucosal thickening. PELVIS: Appendix: No findings to suggest acute appendicitis. Bladder: Bladder wall thickening. Foci of gas in the bladder. Correlate for recent instrumentation versus cystitis. Reproductive: Unremarkable as visualized. ABDOMEN and PELVIS: Intraperitoneal space: Unremarkable. No free air. No significant fluid collection. Bones/joints: Sacrococcygeal decubitus ulcers with associated osteomyelitis. There is some underlying bone thinning and sclerosis in the distal sacrum and coccyx underlying the decubitus ulcers. No acute fracture. No dislocation. Soft tissues: Unremarkable. Vasculature: Moderate plaque abdominal aorta and branches. No abdominal aortic aneurysm. Lymph nodes: Unremarkable. No enlarged lymph nodes. Tubes, lines and devices: Gastrostomy tube within the gastric body. IMPRESSION: 1. Sacrococcygeal decubitus ulcers with associated osteomyelitis. 2. Small left pleural effusion. Left lower lobe atelectasis. 3. Bladder wall thickening. Foci of gas in the bladder. Correlate for recent instrumentation versus cystitis. DAILY ESTIMATED NEEDS: Needs based on Advanced wound, critical care, underweight, [employer] TF/ 45.5kg 30-40 kcals/kg 7493-8832 total kcals 1.5-2 g protein/kg 68-91 g total protein 30-40 mL/kg 1490-6067 total fluid mLs NUTRITION DIAGNOSIS: Increased kcal/prot needs R/T underweight status, wound healing as evidenced by pt @83% IBW w/ underweight BMI of 17.2, admitted w/ multiple wounds, including stage 4 sacral wound. CURRENT TF:Glucerna 1.2 @ 45ml/hr x 24 hrs ENTERAL NUTRITION RECOMMENDATIONS: Glucerna 1.2 @ 60ml/hr x 24 hrs to provide 1440ml, 1728kcal, 86g prot, 1159ml free water * Increase goal rate to 60ml/hr x 24 hrs to meet 100% est kcal/prot needs -> 1.9g prot/kg * HOB over 30 degrees/ water flush per MD * add Shen BID ADDITIONAL RECOMMENDATIONS: * Per SNF: HT=64" and PB=002# vs EMR wt of 147lbs -> rec daily calibrated bedscale wt * Wound healing: TF rec @ goal will provide 100% RDI Vit C 500mg BID, ZnSO4 220gm QD x 10 days Shen BID via PEG * Monitor BGs, consider NISS: h/o DM * Monitor lytes, replete as needed (5) Chronic respiratory failure requiring continuous mechanical ventilation through tracheostomy (6) History of intracranial hemorrhage (7) Idiopathic obstructive hydrocephalus (8) Gout (9) Diabetes mellitus (10) Parkinson's disease dementia (11) Acute on chronic respiratory failure (12) Chronic vegetative state (13) Severe protein-calorie malnutrition Assessment & Plan: DAILY ESTIMATED NEEDS: Needs based on Advanced wound, critical care, underweight, [employer] TF/ 45.5kg 30-40 kcals/kg 8424-9327 total kcals 1.5-2 g protein/kg 68-91 g total protein 30-40 mL/kg 5785-1909 total fluid mLs NUTRITION DIAGNOSIS: Increased kcal/prot needs R/T underweight status, wound healing as evidenced by pt @83% IBW w/ underweight BMI of 17.2, admitted w/ multiple wounds, including stage 4 sacral wound. CURRENT TF:Glucerna 1.2 @ 45ml/hr x 24 hrs ENTERAL NUTRITION RECOMMENDATIONS: Glucerna 1.2 @ 60ml/hr x 24 hrs to provide 1440ml, 1728kcal, 86g prot, 1159ml free water * Increase goal rate to 60ml/hr x 24 hrs to meet 100% est kcal/prot needs -> 1.9g prot/kg * HOB over 30 degrees/ water flush per MD * add Shen BID ADDITIONAL RECOMMENDATIONS: * Per SNF: HT=64" and RE=349# vs EMR wt of 147lbs -> rec daily calibrated bedscale wt * Wound healing: TF rec @ goal will provide 100% RDI add Vit C 500mg BID, continue ZnSO4 220gm QD x 10 days Shen BID via PEG * Monitor BGs, consider NISS: h/o DM -> NISS now added * Add probiotics for diarrhea Chris Hunter Mar 15, 2020 13:26
--- NOTE | 2020-03-15 13:59 | Nephrology Progress Note ---
Assessment/Plan Problem List: (1) Hypercalcemia (2) Hypernatremia (3) Sepsis (4) UTI (urinary tract infection) (5) Stage 4 decubitus ulcer (6) Acute on chronic respiratory failure (7) Chronic vegetative state (8) Severe protein-calorie malnutrition Assessment Azotemia and hypernatremia indicative of severe dehydration and free water deficit Acute on chronic respiratory failure, on mechanical ventilation Severe underlying anemia Sepsis Stage IV decubitus Idiopathic obstructive hydrocephalus, history of intracranial hemorrhage Diabetes mellitus Parkinson's disease, dementia Protein calorie malnutrition Plan March 15: Labs reviewed. Serum calcium lowering. Abnormal electrolytes a ddressed. Continue per consultants. March 14: Labs reviewed. Status quo. Serum calcium lowering. Magnesium and potassium supplement ordered. Continue per current treatment plan. March 13: 1 dose of pamidronate 60 mg for high calcium IV ordered. Labs reviewed. Medication list reviewed. Electrolytes improving. Hemoglobin higher after transfusion. Nasal calcitonin initiated March 12: D5W at 75 cc an hour Monitor electrolytes Monitor hemoglobin hematocrit Gastric support Consider transfusion Continue per orders Parameters for blood pressure medication Antibiotics per ID Subjective ROS Limited/Unobtainable: Yes Objective Objective Last 24 Hour Vital Signs Date Time Temp Pulse Resp B/P (MAP) Pulse Ox O2 Delivery O2 Flow Rate FiO2 03/15/20 12:00 Mechanical Ventilator 03/15/20 12:00 98.2 95 22 120/58 (78) 100 03/15/20 12:00 84 03/15/20 09:04 83 24 35 03/15/20 08:30 88 119/62 03/15/20 08:00 99.1 88 22 119/62 (81) 100 03/15/20 08:00 85 03/15/20 07:54 Mechanical Ventilator 03/15/20 07:08 83 24 35 03/15/20 04:48 83 23 35 03/15/20 04:00 99.7 89 19 107/62 (77) 100 03/15/20 04:00 100 03/15/20 03:49 83 03/15/20 02:55 85 25 35 03/15/20 00:54 90 32 35 03/15/20 00:00 Mechanical Ventilator 03/15/20 00:00 80 03/15/20 00:00 99.3 91 21 99/59 (72) 100 03/14/20 23:01 92 30 35 03/14/20 20:46 84 25 35 03/14/20 20:14 82 03/14/20 20:00 99.0 90 18 125/70 (88) 100 03/14/20 18:33 86 23 35 03/14/20 17:32 88 27 35 03/14/20 16:00 Mechanical Ventilator 03/14/20 16:00 86 03/14/20 16:00 98.1 88 18 118/67 (84) 100 03/14/20 15:24 88 26 35 Intake and Output 03/14/20 03/15/20 19:00 07:00 Intake Total 990 ml 1915.000 ml Output Total 2200 ml Balance 990 ml -285.000 ml Free Water 180 ml 200 ml IV Total 675 ml 1175.000 ml Tube Feeding 135 ml 540 ml Output Urine Total 2200 ml # Bowel Movements 3 Laboratory Tests 03/15/20 00:44: POC Whole Blood Glucose 122H 03/15/20 04:48: POC Whole Blood Glucose 172H 03/15/20 05:00: White Blood Count 18.7H, Red Blood Count 3.39L, Hemoglobin 9.5L, Hematocrit 30.7L, Mean Corpuscular Volume 91, Mean Corpuscular Hemoglobin 28.0, Mean Corpuscular Hemoglobin Concent 30.9L, Red Cell Distribution Width 16.9H, Platelet Count 439, Mean Platelet Volume 8.0, Neutrophils (%) (Auto) , Lymphocytes (%) (Auto) , Monocytes (%) (Auto) , Eosinophils (%) (Auto) , Basophils (%) (Auto) , Differential Total Cells Counted 100, Neutrophils % (Manual) 80H, Lymphocytes % (Manual) 12L, Monocytes % (Manual) 3, Eosinophils % (Manual) 5H, Basophils % (Manual) 0, Band Neutrophils 0, Platelet Estimate IncreasedH, Platelet Morphology Normal, Hypochromasia 1+, Anisocytosis 1+, Erythrocyte Sedimentation Rate 119H, Sodium Level 140, Potassium Level 3.7, Chloride Level 107, Carbon Dioxide Level 28, Blood Urea Nitrogen 11, Creatinine 0.8, Estimat Glomerular Filtration Rate > 60, Glucose Level 179H, Uric Acid 3.1, Calcium Level 8.3L, Phosphorus Level 2.9, Magnesium Level 2.2, Total Bilirubin 0.2, Aspartate Amino Transf (AST/SGOT) 19, Alanine Aminotransferase (ALT/SGPT) 32, Alkaline Phosphatase 135H, C-Reactive Protein, Quantitative 15.4H, Total Protein 6.5, Albumin 1.3L, Globulin 5.2, Albumin/Globulin Ratio 0.2L 03/15/20 11:57: POC Whole Blood Glucose 157H Height (Feet): 5 Height (Inches): 5.00 Weight (Pounds): 147 General Appearance: no apparent distress EENT: other - On mechanical ventilation Cardiovascular: normal rate Respiratory/Chest: decreased breath sounds Abdomen: soft Mathew Huntley MD Mar 15, 2020 13:58
--- NOTE | 2020-03-15 14:27 | NUR ---
CASE MANAGEMENT:REVIEW 03/15/20 SI: SEPSIS. AC/CHR RESPIRATORY FAILURE TRACH/VENT/GT DEPENDENT 99.1 88 22 119/62 100% ON VENT SUPPORT 35% FIO2 WBC+18.7 IS: IV VANCOMYCIN Q12 ZINC PO QD PEPCID GT BID NORVASC GT QD HEPARIN SQ Q12 ASA PO QD : STEP DOWN UNIT DCP: FROM [facility] PLAN: DEBBIE ORDERED
--- NOTE | 2020-03-15 15:59 | NUR ---
NURSE NOTES:Patient had a small BM. Patient given bed bath and clean linens, sacral wound dressing also changed.
[2020-03-15 16:00] VITALS: BP 117/61
--- NOTE | 2020-03-15 16:42 | NUR ---
INSURANCE CLINICALS FAXED TO [facility] [phone]
--- NOTE | 2020-03-15 16:45 | Consultation ---
DATE OF CONSULTATION: 03/15/2020 CARDIOLOGY CONSULTATION CONSULTING PHYSICIAN: Shay Alejandre M.D. REFERRING PHYSICIAN: Jesus Lutz M.D. REASON FOR CONSULTATION: Rule out endocarditis in a patient with bacteremia. HISTORY OF PRESENT ILLNESS: The patient is a 74-year-old lady with history of intracranial hemorrhage, ventilator-dependent respiratory failure, status post tracheostomy, as well as dysphagia, status post PEG placement, as well as stage IV sacral decubitus ulcer, who was admitted on March 11, 2020 with respiratory failure and respiratory distress with pulse oximetry in the 60s. The patient was then admitted and was evaluated by the infectious diseases doctor as the patient has bacteremia. It was recommended the patient undergo transesophageal echocardiogram as the blood culture on March 11, 2020 was positive for MRSA. REVIEW OF SYSTEMS: Cannot be obtained. PAST MEDICAL HISTORY: As mentioned above. FAMILY HISTORY: Noncontributory. SOCIAL HISTORY: She is a halfway resident. The patient has a history of drug use. PHYSICAL EXAMINATION: VITAL SIGNS: Blood pressure of 119/62, pulse is 88, respirations 18, temperature 99.1. HEAD AND NECK: No JVD. LUNGS: Coarse rhonchi. She is status post tracheostomy. CARDIOVASCULAR: Regular S1 and S2 with no gallop or rub. Status post PEG. EXTREMITIES: 1+ pitting edema with sacral decubitus. LABORATORY AND DIAGNOSTIC DATA: Labs show initial white count was 26.2 and today is 18.7, hemoglobin 9.5, hematocrit 30, and platelet count is 439. Sodium is 140, potassium 3.7, BUN of 11, creatinine 0.8, and glucose of 179. Vancomycin level is 11.2. ASSESSMENT AND PLAN: 1. MRSA bacteremia. Most recent blood culture from March 13, 2020 showed no growth. I will discuss with Dr. Cruz. Her echocardiogram showed ejection fraction of 60-65% with no clear vegetation. We will try to schedule the patient for a transesophageal echocardiogram. 2. Ventilator-dependent respiratory failure, status post tracheostomy. 3. Dysphagia, status post PEG placement. 4. History of intracranial hemorrhage. 5. COPD. 6. Diabetes. 7. Glaucoma. 8. Sacral decubitus stage IV. 9. Hypertension, on amlodipine 10 mg daily. Thank you very much for allowing me to participate in the care of this patient. Please do not hesitate to contact me for any questions regarding my evaluation. Shay Alejandre M.D. DR: BRANDON JOB#: [id number] CC:
[2020-03-15] MEDS: Vancomycin 500 MG in NS 110 ML IVPB SCH (17:40)
--- NOTE | 2020-03-15 19:32 | NUR ---
NURSE NOTES: Received report from Vlad Scott, pt. in bed awake, with eyes open, appears to be non-verbal, no signs or symptoms of acute cardiac or respiratory distress noted, bed alarm on, side rails up x's 4 and safety brakes engaged, call light within easy reach, pt. has G tube running Glucerna 1.2 at 45cc/hr - no residual noted, Suprapubic catheter intact and draining to gravity, pt. appears clean and dry, Rt. hand 22G IV intact and patent- TKO, aspiration precautions observed- HOB elevated, skin precautions observed, will continue to monitor pt. and with plan of care. Addendum: 03/17/20 at 1928 by RUPAL TRUJILLO RN RN correction Side rails up x's 3. Addendum: 03/17/20 at 220 by RUPAL TRUJILLO RN RN pt. appears to be tolerating current vent settings well- AC 16, TV 400, Fio2 @75% and peep 5.
--- NOTE | 2020-03-15 19:35 | NUR ---
NURSE NOTES:Called the spouse Ariela Robert and son Matthew Robert to update them on patient status as they called earlier but I was unable to take the call. Addendum: 03/15/20 at 1939 by Tyler Phan RN ENTERED ON WRONG PATIENT PLEASE IGNORE THE ABOVE MESSAGE.
--- NOTE | 2020-03-15 19:39 | NUR ---
NURSE HAND-OFF REPORT: Important Events on Shift: patient scheduled for Transesophageal echocardiogram Patient Status: Stable Diet: Glucerna 1.2@45ML/HR continuous Pending Orders: Pending Results/Labs: Pending MD notification: Latest Vital Signs: Temperature 99.5 , Pulse 101 , B/P 117 /61 , Respiratory Rate 27 , O2 SAT 100 , Mechanical Ventilator, O2 Flow Rate . Vital Sign Comment: EKG Rhythm: Sinus Rhythm Rhythm change?: N MD Notified?: - MD Response: Latest Ochoa Fall Score: 50 Fall Risk: High Risk Safety Measures: Call light Within Reach, Bed Alarm Zone 1, Side Rails Side Rails x3, Bed position Low and Locked. Fall Precautions: Yellow Socks Door Sign Patient Fall Education Report given to ADILENE Sanchez.
[2020-03-15 20:00] VITALS: BP 101/66
--- NOTE | 2020-03-15 20:04 | NUR ---
NURSE NOTES: Heparin not- administered- pt. has (+) OB stool and HGB trending down- will continue to monitor pt. and with plan of care.
[2020-03-16] VITALS: BP 125/78
--- NOTE | 2020-03-16 01:00 | NUR ---
NURSE NOTES: Full bed bath given- linens changed, oral care provided, pt. appears to be tolerating current vent settings well- no distress noted, will continue to monitor pt. and with plan of care.
[2020-03-16 04:00] VITALS: BP 113/60
--- NOTE | 2020-03-16 04:00 | NUR ---
NURSE NOTES: pt. appears to be sating well- on current vent settings- no distress noted- oral care provided- repositioned and turned pt., will continue to monitor pt. and with plan of care.
[2020-03-16] MEDS: Vancomycin 500 MG in NS 110 ML IVPB SCH ×2 (05:01→18:26)
[2020-03-16] MEDS: NovoLOG Insulin Flexpen SUBQ SCH ×4 (05:01→17:54)
[2020-03-16 06:01] LABS: HEMATOCRIT 31.9 % (37.0-47.0); HEMOGLOBIN 9.6 G/DL (12.0-16.0); MEAN CORPUSCULAR VOLUME 91 FL (80-99); PLATELET COUNT 524 K/UL (150-450); RED BLOOD COUNT 3.49 M/UL (4.20-5.40); RED CELL DISTRIBUTION WIDTH 17.2 % (11.6-14.8); WHITE BLOOD COUNT 20.6 K/UL (4.8-10.8)
[2020-03-16 06:31] LABS: ALANINE AMINOTRANSFERASE 35 U/L (12-78); ALBUMIN 1.4 G/DL (3.4-5.0); ALBUMIN/GLOBULIN RATIO 0.2 (1.0-2.7); ALKALINE PHOSPHATASE 122 U/L (46-116); ANION GAP 6 mmol/L (5-15); ASPARTATE AMINO TRANSFERASE 21 U/L (15-37); BILIRUBIN,TOTAL 0.2 MG/DL (0.2-1.0); BLOOD UREA NITROGEN 15 mg/dL (7-18); CALCIUM 8.3 MG/DL (8.5-10.1); CARBON DIOXIDE 28 MMOL/L (21-32); CHLORIDE 111 MMOL/L (98-107); CREATININE 0.8 MG/DL (0.55-1.30); PHOSPHORUS 2.9 MG/DL (2.5-4.9); POTASSIUM 4.3 MMOL/L (3.5-5.1); SODIUM 145 MMOL/L (136-145)
--- NOTE | 2020-03-16 07:18 | NUR ---
NURSE HAND-OFF REPORT: Important Events on Shift:none Patient Status: stable Diet: NPO now for procedure Pending Orders: Pending Results/Labs: Pending MD notification: Latest Vital Signs: Temperature 98.2 , Pulse 103 , B/P 113 /60 , Respiratory Rate 23 , O2 SAT 100 , Mechanical Ventilator, O2 Flow Rate . Vital Sign Comment: EKG Rhythm: Sinus Tachycardia Rhythm change?: N MD Notified?: N - MD Response: Latest Ochoa Fall Score: 50 Fall Risk: High Risk Safety Measures: Call light Within Reach, Bed Alarm Zone 1, Side Rails Side Rails x3, Bed position Low and Locked. Fall Precautions: Yellow Socks Door Sign Patient Fall Education Report given to ADILENE Goddard- aware to f/u on any abnormal am labs.
--- NOTE | 2020-03-16 07:22 | Infectious Diseases Prog Note ---
Assessment/Plan 74yo F with: Febrile Leukocytosis Sepsis Left lower lung infiltrate Acute on chronic resp failure SP trach MRSA bacteremia 03/11 BCx +MRSA Resp cx +PsA (colonizer given on minimal vent settings, no pna on imaging) UCx 30-40k ACB (colonizer) COVID rapid Ag neg CXR: Midline tracheostomy. Small left pleural effusion. Hyperinflation with flattening of the diaphragms and emphysema, consistent with COPD. No lobar infiltrate. 03/12 BCx NTD 03/13 C.dif neg 03/13 BCx NTD 03/14 BCx NTD 03/14 CT A/P: 1. Sacrococcygeal decubitus ulcers with associated osteomyelitis. 2. Small left pleural effusion. Left lower lobe atelectasis. 3. Bladder wall thickening. Foci of gas in the bladder. Correlate for recent instrumentation versus cystitis. 03/14 TTE: No vegetations, thickened valves MRSA nares positive VDRF S/p trach/PEG Bed bound Sacral decub ulceration w/ underlying OM Plan: Cont vancomycin #6 for MRSA bacteremia, duration TBD Recommend DEBBIE given MRSA bacteremia of community onset without clear source F/u repeat BCx to ensure clearance of bacteremia Trend WBC 03/14 SP cefepime #4 Monitor CBC/CMP Monitor temp curve, hemodynamics Monitor resp status D/w RN Thank you for this consult. [facility] will continue to follow. Subjective Allergies: Coded Allergies: No Known Allergies (Unverified , 03/11/20) AF x24hrs WBC stable at 20 NAD on vent, 35% PEEP 5 Objective Last 24 Hour Vital Signs Date Time Temp Pulse Resp B/P (MAP) Pulse Ox O2 Delivery O2 Flow Rate FiO2 03/16/20 07:00 103 23 35 03/16/20 04:42 112 23 35 03/16/20 04:00 100 03/16/20 04:00 98.2 98 20 113/60 (77) 100 03/16/20 03:31 106 03/16/20 03:15 92 26 35 03/16/20 01:18 90 28 35 03/16/20 00:00 98.0 93 18 125/78 (94) 100 03/16/20 00:00 100 03/16/20 00:00 Mechanical Ventilator 03/15/20 23:31 104 03/15/20 23:08 104 27 35 03/15/20 20:40 93 29 35 03/15/20 20:00 Mechanical Ventilator 03/15/20 20:00 98.2 94 20 101/66 (78) 100 03/15/20 20:00 100 03/15/20 19:25 98 24 35 03/15/20 19:14 98 03/15/20 16:40 101 27 35 03/15/20 16:00 83 03/15/20 16:00 Mechanical Ventilator 03/15/20 16:00 99.5 86 21 117/61 (79) 100 03/15/20 15:24 95 25 35 03/15/20 13:13 85 24 35 03/15/20 12:00 Mechanical Ventilator 03/15/20 12:00 98.2 95 22 120/58 (78) 100 03/15/20 12:00 84 03/15/20 10:51 93 24 35 03/15/20 09:04 83 24 35 03/15/20 08:30 88 119/62 03/15/20 08:00 99.1 88 22 119/62 (81) 100 03/15/20 08:00 85 03/15/20 07:54 Mechanical Ventilator Height (Feet): 5 Height (Inches): 5.00 Weight (Pounds): 147 Gen: NAD in bed HEENT: NCAT, trach CV: RRR Pulm: CTAB Abd: Soft, NTND, +PEG Ext: No c/c/e Skin: Stage 4 sacral decub ulceration, clean Neuro: Sleeping, not interactive Microbiology Date/Time Source Procedure Growth Status 03/14/20 02:00 Blood Blood Culture - Preliminary NO GROWTH AFTER 24 HOURS Resulted 03/13/20 17:04 Stool Clostridium difficile Toxin Assay - Final Complete 03/13/20 10:55 Blood Blood Culture - Preliminary NO GROWTH AFTER 24 HOURS Resulted 03/13/20 10:55 Blood Blood Culture - Preliminary NO GROWTH AFTER 24 HOURS Resulted Laboratory Tests Test 03/15/20 11:57 03/15/20 14:10 03/15/20 17:27 03/16/20 00:50 POC Whole Blood Glucose 157 MG/DL (74-106) H 128 MG/DL (74-106) H Pending Vancomycin Level Trough 20.6 ug/mL (5.0-12.0) H Test 03/16/20 04:53 03/16/20 05:20 POC Whole Blood Glucose Pending White Blood Count 20.6 K/UL (4.8-10.8) H Red Blood Count 3.49 M/UL (4.20-5.40) L Hemoglobin 9.6 G/DL (12.0-16.0) L Hematocrit 31.9 % (37.0-47.0) L Mean Corpuscular Volume 91 FL (80-99) Mean Corpuscular Hemoglobin 27.5 PG (27.0-31.0) Mean Corpuscular Hemoglobin Concent 30.1 G/DL (32.0-36.0) L Red Cell Distribution Width 17.2 % (11.6-14.8) H Platelet Count 524 K/UL (150-450) H Mean Platelet Volume 7.7 FL (6.5-10.1) Neutrophils (%) (Auto) % (45.0-75.0) Lymphocytes (%) (Auto) % (20.0-45.0) Monocytes (%) (Auto) % (1.0-10.0) Eosinophils (%) (Auto) % (0.0-3.0) Basophils (%) (Auto) % (0.0-2.0) Neutrophils % (Manual) Pending Lymphocytes % (Manual) Pending Platelet Estimate Pending Platelet Morphology Pending Sodium Level 145 MMOL/L (136-145) Potassium Level 4.3 MMOL/L (3.5-5.1) Chloride Level 111 MMOL/L (98-107) H Carbon Dioxide Level 28 MMOL/L (21-32) Anion Gap 6 mmol/L (5-15) Blood Urea Nitrogen 15 mg/dL (7-18) Creatinine 0.8 MG/DL (0.55-1.30) Estimat Glomerular Filtration Rate > 60 mL/min (>60) Glucose Level 133 MG/DL (74-106) H Calcium Level 8.3 MG/DL (8.5-10.1) L Phosphorus Level 2.9 MG/DL (2.5-4.9) Magnesium Level 2.4 MG/DL (1.8-2.4) Total Bilirubin 0.2 MG/DL (0.2-1.0) Aspartate Amino Transf (AST/SGOT) 21 U/L (15-37) Alanine Aminotransferase (ALT/SGPT) 35 U/L (12-78) Alkaline Phosphatase 122 U/L (46-116) H Total Protein 7.0 G/DL (6.4-8.2) Albumin 1.4 G/DL (3.4-5.0) L Globulin 5.6 g/dL Albumin/Globulin Ratio 0.2 (1.0-2.7) L Current Medications Medications (Trade) Dose Ordered Sig/Zaki Route PRN Reason Start Time Stop Time Status Last Admin Dose Admin Acetaminophen (Tylenol) 650 mg Q6H PRN GT Temp >100.5, Mild Pain 03/11/20 06:30 04/10/20 06:29 03/14/20 01:23 Acetaminophen/ Codeine Phosphate (Tylenol #3) 1 tab Q6H PRN GT For Mod-Severe Pain 03/11/20 06:30 03/18/20 06:29 03/15/20 01:00 Amlodipine Besylate (Norvasc) 10 mg DAILY GT 03/11/20 09:00 04/10/20 08:59 03/15/20 08:30 Aspirin (ASA) 81 mg DAILY GT 03/11/20 09:00 04/25/20 08:59 03/15/20 08:31 Calcitonin [place] (Miacalcin) 1 sprays DAILY NASAL 03/13/20 11:00 06/11/20 10:59 03/15/20 08:33 Dextrose (Dextrose 50%) 25 ml Q30M PRN IV Hypoglycemia 03/13/20 23:30 06/11/20 23:29 Dextrose (Dextrose 50%) 50 ml Q30M PRN IV Hypoglycemia 03/13/20 23:30 06/11/20 23:29 Diphenhydramine HCl (Benadryl) 25 mg Q8H PRN ORAL Itching 03/14/20 15:00 04/13/20 14:59 03/14/20 15:50 Famotidine (Pepcid) 40 mg BID GT 03/12/20 18:00 06/09/20 08:59 03/15/20 17:40 Heparin Sodium (Porcine) (Heparin 5000 units/ml) 5,000 units EVERY 12 HOURS SUBQ 03/11/20 09:00 04/25/20 08:59 03/13/20 20:49 Insulin Aspart (NovoLOG) Q6HR SUBQ 03/14/20 00:00 06/12/20 00:00 03/15/20 12:34 Ondansetron HCl (Zofran) 4 mg Q4H PRN IVP Nausea & Vomiting 03/11/20 06:30 04/10/20 06:29 Vancomycin HCl ([facility] pharmacy to dose) 1 ea DAILY PRN MISC Per rx protocol 03/11/20 06:30 04/10/20 06:29 Vancomycin HCl 500 mg/Sodium Chloride 110 ml @ 110 mls/hr Q12HR@0600,1800 IVPB 03/15/20 18:00 03/20/20 17:59 03/16/20 05:01 Zinc Sulfate (Zinc Sulfate) 220 mg DAILY ORAL 03/13/20 09:00 03/23/20 08:59 03/15/20 08:30 Shirley Villegas M.D. Mar 16, 2020 07:22
--- NOTE | 2020-03-16 07:53 | NUR ---
NURSE NOTES: Pt asleep/obtunded, mechanically ventilated, no evidence of pain at this time. Vital signs stable with SR @ 108 on monitor. IV access RH, flushed with 10 ml NS and locked. G-tube feeding with Glu. 1.2 running at 45 ml/hr, 0 residual, flushed with 30 ml free water. Oral care done. Suprapubic cath in place, patent, draining clear yellow urine into collection bag at foot of bed. P200 mattress overlay installed and running. Bed left in low position, side rails up x 3 and call light left neat pt's hand.
[2020-03-16 08:00] VITALS: BP 109/69
[2020-03-16] MEDS: Zinc Sulfate 220mg ORAL SCH (09:00)
[2020-03-16] MEDS: Aspirin Baby 81mg GT SCH (09:00)
[2020-03-16] MEDS: Heparin 5000 units/ml inj SUBQ SCH ×2 (09:00→21:00)
--- NOTE | 2020-03-16 10:47 | Nephrology Progress Note ---
Assessment/Plan Problem List: (1) Hypercalcemia (2) Hypernatremia (3) Sepsis (4) UTI (urinary tract infection) (5) Stage 4 decubitus ulcer (6) Acute on chronic respiratory failure (7) Chronic vegetative state (8) Severe protein-calorie malnutrition Assessment Azotemia and hypernatremia indicative of severe dehydration and free water deficit Acute on chronic respiratory failure, on mechanical ventilation Severe underlying anemia Sepsis Stage IV decubitus Idiopathic obstructive hydrocephalus, history of intracranial hemorrhage Diabetes mellitus Parkinson's disease, dementia Protein calorie malnutrition Plan March 16: Labs reviewed. Serum calcium stable. Medication list reviewed. Abnormal electrolyte addressed. Continue current management. March 15: Labs reviewed. Serum calcium lowering. Abnormal electrolytes addressed. Continue per consultants. March 14: Labs reviewed. Status quo. Serum calcium lowering. Magnesium and potassium supplement ordered. Continue per current treatment plan. March 13: 1 dose of pamidronate 60 mg for high calcium IV ordered. Labs reviewed. Medication list reviewed. Electrolytes improving. Hemoglobin higher after transfusion. Nasal calcitonin initiated March 12: D5W at 75 cc an hour Monitor electrolytes Monitor hemoglobin hematocrit Gastric support Consider transfusion Continue per orders Parameters for blood pressure medication Antibiotics per ID Subjective ROS Limited/Unobtainable: Yes Objective Objective Last 24 Hour Vital Signs Date Time Temp Pulse Resp B/P (MAP) Pulse Ox O2 Delivery O2 Flow Rate FiO2 03/16/20 09:00 108 113/60 03/16/20 08:00 108 03/16/20 07:00 103 23 35 03/16/20 04:42 112 23 35 03/16/20 04:00 100 03/16/20 04:00 98.2 98 20 113/60 (77) 100 03/16/20 03:31 106 03/16/20 03:15 92 26 35 03/16/20 01:18 90 28 35 03/16/20 00:00 98.0 93 18 125/78 (94) 100 03/16/20 00:00 100 03/16/20 00:00 Mechanical Ventilator 03/15/20 23:31 104 03/15/20 23:08 104 27 35 03/15/20 20:40 93 29 35 03/15/20 20:00 Mechanical Ventilator 03/15/20 20:00 98.2 94 20 101/66 (78) 100 03/15/20 20:00 100 03/15/20 19:25 98 24 35 03/15/20 19:14 98 03/15/20 16:40 101 27 35 03/15/20 16:00 83 03/15/20 16:00 Mechanical Ventilator 03/15/20 16:00 99.5 86 21 117/61 (79) 100 03/15/20 15:24 95 25 35 03/15/20 13:13 85 24 35 03/15/20 12:00 Mechanical Ventilator 03/15/20 12:00 98.2 95 22 120/58 (78) 100 03/15/20 12:00 84 03/15/20 10:51 93 24 35 Intake and Output 03/15/20 03/16/20 19:00 07:00 Intake Total 1523 ml 542 ml Output Total 1500 ml 375 ml Balance 23 ml 167 ml Free Water 50 ml IV Total 983 ml 110 ml Tube Feeding 540 ml 382 ml Output Urine Total 1500 ml 375 ml # Bowel Movements 1 2 Current Medications Medications (Trade) Dose Ordered Sig/Zaki Route PRN Reason Start Time Stop Time Status Last Admin Dose Admin Acetaminophen (Tylenol) 650 mg Q6H PRN GT Temp >100.5, Mild Pain 03/11/20 06:30 04/10/20 06:29 03/14/20 01:23 Acetaminophen/ Codeine Phosphate (Tylenol #3) 1 tab Q6H PRN GT For Mod-Severe Pain 03/11/20 06:30 03/18/20 06:29 03/15/20 01:00 Amlodipine Besylate (Norvasc) 10 mg DAILY GT 03/11/20 09:00 04/10/20 08:59 03/16/20 09:00 Aspirin (ASA) 81 mg DAILY GT 03/11/20 09:00 04/25/20 08:59 03/16/20 09:00 Calcitonin [place] (Miacalcin) 1 sprays DAILY NASAL 03/13/20 11:00 06/11/20 10:59 03/16/20 09:00 Dextrose (Dextrose 50%) 25 ml Q30M PRN IV Hypoglycemia 03/13/20 23:30 06/11/20 23:29 Dextrose (Dextrose 50%) 50 ml Q30M PRN IV Hypoglycemia 03/13/20 23:30 06/11/20 23:29 Diphenhydramine HCl (Benadryl) 25 mg Q8H PRN ORAL Itching 03/14/20 15:00 04/13/20 14:59 03/14/20 15:50 Famotidine (Pepcid) 40 mg BID GT 03/12/20 18:00 06/09/20 08:59 03/16/20 10:02 Heparin Sodium (Porcine) (Heparin 5000 units/ml) 5,000 units EVERY 12 HOURS SUBQ 03/11/20 09:00 04/25/20 08:59 03/13/20 20:49 Insulin Aspart (NovoLOG) Q6HR SUBQ 03/14/20 00:00 06/12/20 00:00 03/15/20 12:34 Ondansetron HCl (Zofran) 4 mg Q4H PRN IVP Nausea & Vomiting 03/11/20 06:30 04/10/20 06:29 Vancomycin HCl ([facility] pharmacy to dose) 1 ea DAILY PRN MISC Per rx protocol 03/11/20 06:30 04/10/20 06:29 Vancomycin HCl 500 mg/Sodium Chloride 110 ml @ 110 mls/hr Q12HR@0600,1800 IVPB 03/15/20 18:00 03/20/20 17:59 03/16/20 05:01 Zinc Sulfate (Zinc Sulfate) 220 mg DAILY ORAL 03/13/20 09:00 03/23/20 08:59 03/16/20 09:00 Laboratory Tests 03/15/20 11:57: POC Whole Blood Glucose 157H 03/15/20 14:10: Vancomycin Level Trough 20.6H 03/15/20 17:27: POC Whole Blood Glucose 128H 03/16/20 00:50: POC Whole Blood Glucose [Pending] 03/16/20 04:53: POC Whole Blood Glucose [Pending] 03/16/20 05:20: White Blood Count 20.6H, Red Blood Count 3.49L, Hemoglobin 9.6L, Hematocrit 31.9L, Mean Corpuscular Volume 91, Mean Corpuscular Hemoglobin 27.5, Mean Corpuscular Hemoglobin Concent 30.1L, Red Cell Distribution Width 17.2H, Platelet Count 524H, Mean Platelet Volume 7.7, Neutrophils (%) (Auto) , Lymphocytes (%) (Auto) , Monocytes (%) (Auto) , Eosinophils (%) (Auto) , Basophils (%) (Auto) , Differential Total Cells Counted 100, Neutrophils % (Manu al) 76H, Lymphocytes % (Manual) 16L, Monocytes % (Manual) 0L, Eosinophils % (Manual) 7H, Basophils % (Manual) 1, Band Neutrophils 0, Platelet Estimate IncreasedH, Platelet Morphology Normal, Hypochromasia 1+, Anisocytosis 1+, Sodium Level 145, Potassium Level 4.3, Chloride Level 111H, Carbon Dioxide Level 28, Anion Gap 6, Blood Urea Nitrogen 15, Creatinine 0.8, Estimat Glomerular Filtration Rate > 60, Glucose Level 133H, Calcium Level 8.3L, Phosphorus Level 2.9, Magnesium Level 2.4, Total Bilirubin 0.2, Aspartate Amino Transf (AST/SGOT) 21, Alanine Aminotransferase (ALT/SGPT) 35, Alkaline Phosphatase 122H, Total Protein 7.0, Albumin 1.4L, Globulin 5.6, Albumin/Globulin Ratio 0.2L Height (Feet): 5 Height (Inches): 5.00 Weight (Pounds): 147 General Appearance: no apparent distress EENT: other - Trach to vent Cardiovascular: tachycardia Respiratory/Chest: decreased breath sounds Abdomen: distended Mathew Huntley MD Mar 16, 2020 10:47
[2020-03-16 12:00] VITALS: BP 110/63
--- NOTE | 2020-03-16 12:47 | Surgery Progress Note ---
Surgery Progress Note Subjective Additional Comments leukocytosis anemia labs noted exam stable Objective Last 24 Hour Vital Signs Date Time Temp Pulse Resp B/P (MAP) Pulse Ox O2 Delivery O2 Flow Rate FiO2 03/16/20 10:30 106 20 35 03/16/20 09:00 108 113/60 03/16/20 08:00 108 03/16/20 07:00 103 23 35 03/16/20 04:42 112 23 35 03/16/20 04:00 100 03/16/20 04:00 98.2 98 20 113/60 (77) 100 03/16/20 03:31 106 03/16/20 03:15 92 26 35 03/16/20 01:18 90 28 35 03/16/20 00:00 98.0 93 18 125/78 (94) 100 03/16/20 00:00 100 03/16/20 00:00 Mechanical Ventilator 03/15/20 23:31 104 03/15/20 23:08 104 27 35 03/15/20 20:40 93 29 35 03/15/20 20:00 Mechanical Ventilator 03/15/20 20:00 98.2 94 20 101/66 (78) 100 03/15/20 20:00 100 03/15/20 19:25 98 24 35 03/15/20 19:14 98 03/15/20 16:40 101 27 35 03/15/20 16:00 83 03/15/20 16:00 Mechanical Ventilator 03/15/20 16:00 99.5 86 21 117/61 (79) 100 03/15/20 15:24 95 25 35 03/15/20 13:13 85 24 35 I&O Intake and Output 03/15/20 03/16/20 19:00 07:00 Intake Total 1523 ml 542 ml Output Total 1500 ml 375 ml Balance 23 ml 167 ml Free Water 50 ml IV Total 983 ml 110 ml Tube Feeding 540 ml 382 ml Output Urine Total 1500 ml 375 ml # Bowel Movements 1 2 Dressing: saturated Cardiovascular: RSR Respiratory: decreased breath sounds Abdomen: soft, non-tender, present bowel sounds Extremities: no tenderness, no cyanosis Laboratory Tests Test 03/15/20 14:10 03/15/20 17:27 03/16/20 00:50 03/16/20 04:53 Vancomycin Level Trough 20.6 ug/mL (5.0-12.0) H POC Whole Blood Glucose 128 MG/DL (74-106) H Pending Pending Test 03/16/20 05:20 White Blood Count 20.6 K/UL (4.8-10.8) H Red Blood Count 3.49 M/UL (4.20-5.40) L Hemoglobin 9.6 G/DL (12.0-16.0) L Hematocrit 31.9 % (37.0-47.0) L Mean Corpuscular Volume 91 FL (80-99) Mean Corpuscular Hemoglobin 27.5 PG (27.0-31.0) Mean Corpuscular Hemoglobin Concent 30.1 G/DL (32.0-36.0) L Red Cell Distribution Width 17.2 % (11.6-14.8) H Platelet Count 524 K/UL (150-450) H Mean Platelet Volume 7.7 FL (6.5-10.1) Neutrophils (%) (Auto) % (45.0-75.0) Lymphocytes (%) (Auto) % (20.0-45.0) Monocytes (%) (Auto) % (1.0-10.0) Eosinophils (%) (Auto) % (0.0-3.0) Basophils (%) (Auto) % (0.0-2.0) Differential Total Cells Counted 100 Neutrophils % (Manual) 76 % (45-75) H Lymphocytes % (Manual) 16 % (20-45) L Monocytes % (Manual) 0 % (1-10) L Eosinophils % (Manual) 7 % (0-3) H Basophils % (Manual) 1 % (0-2) Band Neutrophils 0 % (0-8) Platelet Estimate Increased H Platelet Morphology Normal Hypochromasia 1+ Anisocytosis 1+ Sodium Level 145 MMOL/L (136-145) Potassium Level 4.3 MMOL/L (3.5-5.1) Chloride Level 111 MMOL/L (98-107) H Carbon Dioxide Level 28 MMOL/L (21-32) Anion Gap 6 mmol/L (5-15) Blood Urea Nitrogen 15 mg/dL (7-18) Creatinine 0.8 MG/DL (0.55-1.30) Estimat Glomerular Filtration Rate > 60 mL/min (>60) Glucose Level 133 MG/DL (74-106) H Calcium Level 8.3 MG/DL (8.5-10.1) L Phosphorus Level 2.9 MG/DL (2.5-4.9) Magnesium Level 2.4 MG/DL (1.8-2.4) Total Bilirubin 0.2 MG/DL (0.2-1.0) Aspartate Amino Transf (AST/SGOT) 21 U/L (15-37) Alanine Aminotransferase (ALT/SGPT) 35 U/L (12-78) Alkaline Phosphatase 122 U/L (46-116) H Total Protein 7.0 G/DL (6.4-8.2) Albumin 1.4 G/DL (3.4-5.0) L Globulin 5.6 g/dL Albumin/Globulin Ratio 0.2 (1.0-2.7) L Plan Problems: (1) Hypernatremia (2) Sepsis (3) UTI (urinary tract infection) (4) Stage 4 decubitus ulcer Assessment & Plan: Stage 4 ulcer on admission. macerated edges. serous drainage. foul odor. no active infection Tx plan: wash with NS. apply therahoney gauze and dressing daily change prn saturation CT noted. osteo in sacrum cont abx osteo chronic will monitor and asses if debridement needed ABDOMEN: Liver: Unremarkable. No mass. Gallbladder and bile ducts: Unremarkable. No calcified stones. No ductal dilation. Pancreas: Unremarkable. No mass. No ductal dilation. Spleen: Spleen is small. Adrenals: Unremarkable. No mass. Kidneys and ureters: Renal cysts and subcentimeter low-attenuation foci, too small to characterize. No hydronephrosis. Stomach and bowel: Unremarkable. No obstruction. No mucosal thickening. PELVIS: Appendix: No findings to suggest acute appendicitis. Bladder: Bladder wall thickening. Foci of gas in the bladder. Correlate for recent instrumentation versus cystitis. Reproductive: Unremarkable as visualized. ABDOMEN and PELVIS: Intraperitoneal space: Unremarkable. No free air. No significant fluid collection. Bones/joints: Sacrococcygeal decubitus ulcers with associated osteomyelitis. There is some underlying bone thinning and sclerosis in the distal sacrum and coccyx underlying the decubitus ulcers. No acute fracture. No dislocation. Soft tissues: Unremarkable. Vasculature: Moderate plaque abdominal aorta and branches. No abdominal aortic aneurysm. Lymph nodes: Unremarkable. No enlarged lymph nodes. Tubes, lines and devices: Gastrostomy tube within the gastric body. IMPRESSION: 1. Sacrococcygeal decubitus ulcers with associated osteomyelitis. 2. Small left pleural effusion. Left lower lobe atelectasis. 3. Bladder wall thickening. Foci of gas in the bladder. Correlate for recent instrumentation versus cystitis. DAILY ESTIMATED NEEDS: Needs based on Advanced wound, critical care, underweight, STAVE BLOCK ROLLER TF/ 45.5kg 30-40 kcals/kg 7444-0520 total kcals 1.5-2 g protein/kg 68-91 g total protein 30-40 mL/kg 6306-0090 total fluid mLs NUTRITION DIAGNOSIS: Increased kcal/prot needs R/T underweight status, wound healing as evidenced by pt @83% IBW w/ underweight BMI of 17.2, admitted w/ multiple wounds, including stage 4 sacral wound. CURRENT TF:Glucerna 1.2 @ 45ml/hr x 24 hrs ENTERAL NUTRITION RECOMMENDATIONS: Glucerna 1.2 @ 60ml/hr x 24 hrs to provide 1440ml, 1728kcal, 86g prot, 1159ml free water * Increase goal rate to 60ml/hr x 24 hrs to meet 100% est kcal/prot needs -> 1.9g prot/kg * HOB over 30 degrees/ water flush per MD * add Shen BID ADDITIONAL RECOMMENDATIONS: * Per SNF: HT=64" and WU=075# vs EMR wt of 147lbs -> rec daily calibrated bedscale wt * Wound healing: TF rec @ goal will provide 100% RDI Vit C 500mg BID, ZnSO4 220gm QD x 10 days Shen BID via PEG * Monitor BGs, consider NISS: h/o DM * Monitor lytes, replete as needed (5) Chronic respiratory failure requiring continuous mechanical ventilation through tracheostomy (6) History of intracranial hemorrhage (7) Idiopathic obstructive hydrocephalus (8) Gout (9) Diabetes mellitus (10) Parkinson's disease dementia (11) Acute on chronic respiratory failure (12) Chronic vegetative state (13) Severe protein-calorie malnutrition Assessment & Plan: DAILY ESTIMATED NEEDS: Needs based on Advanced wound, critical care, underweight, STAVE BLOCK ROLLER TF/ 45.5kg 30-40 kcals/kg 1241-0893 total kcals 1.5-2 g protein/kg 68-91 g total protein 30-40 mL/kg 8810-2700 total fluid mLs NUTRITION DIAGNOSIS: Increased kcal/prot needs R/T underweight status, wound healing as evidenced by pt @83% IBW w/ underweight BMI of 17.2, admitted w/ multiple wounds, including stage 4 sacral wound. CURRENT TF:Glucerna 1.2 @ 45ml/hr x 24 hrs ENTERAL NUTRITION RECOMMENDATIONS: Glucerna 1.2 @ 60ml/hr x 24 hrs to provide 1440ml, 1728kcal, 86g prot, 1159ml free water * Increase goal rate to 60ml/hr x 24 hrs to meet 100% est kcal/prot needs -> 1.9g prot/kg * HOB over 30 degrees/ water flush per MD * add Shen BID ADDITIONAL RECOMMENDATIONS: * Per SNF: HT=64" and FZ=646# vs EMR wt of 147lbs -> rec daily calibrated bedscale wt * Wound healing: TF rec @ goal will provide 100% RDI add Vit C 500mg BID, continue ZnSO4 220gm QD x 10 days Shen BID via PEG * Monitor BGs, consider NISS: h/o DM -> NISS now added * Add probiotics for diarrhea Chris Hunter Mar 16, 2020 12:47
--- NOTE | 2020-03-16 14:08 | Internal Med Progress Note ---
Subjective Physician Name Jesus Lutz Attending Physician Jesus Lutz MD Current Medications Medications (Trade) Dose Ordered Sig/Zaki Route PRN Reason Start Time Stop Time Status Last Admin Dose Admin Acetaminophen (Tylenol) 650 mg Q6H PRN GT Temp >100.5, Mild Pain 03/11/20 06:30 04/10/20 06:29 03/14/20 01:23 Acetaminophen/ Codeine Phosphate (Tylenol #3) 1 tab Q6H PRN GT For Mod-Severe Pain 03/11/20 06:30 03/18/20 06:29 03/15/20 01:00 Amlodipine Besylate (Norvasc) 10 mg DAILY GT 03/11/20 09:00 04/10/20 08:59 03/16/20 09:00 Aspirin (ASA) 81 mg DAILY GT 03/11/20 09:00 04/25/20 08:59 03/16/20 09:00 Calcitonin [place] (Miacalcin) 1 sprays DAILY NASAL 03/13/20 11:00 06/11/20 10:59 03/16/20 09:00 Dextrose (Dextrose 50%) 25 ml Q30M PRN IV Hypoglycemia 03/13/20 23:30 06/11/20 23:29 Dextrose (Dextrose 50%) 50 ml Q30M PRN IV Hypoglycemia 03/13/20 23:30 06/11/20 23:29 Diphenhydramine HCl (Benadryl) 25 mg Q8H PRN ORAL Itching 03/14/20 15:00 04/13/20 14:59 03/14/20 15:50 Famotidine (Pepcid) 40 mg BID GT 03/12/20 18:00 06/09/20 08:59 03/16/20 10:02 Heparin Sodium (Porcine) (Heparin 5000 units/ml) 5,000 units EVERY 12 HOURS SUBQ 03/11/20 09:00 04/25/20 08:59 03/13/20 20:49 Insulin Aspart (NovoLOG) Q6HR SUBQ 03/14/20 00:00 06/12/20 00:00 03/15/20 12:34 Ondansetron HCl (Zofran) 4 mg Q4H PRN IVP Nausea & Vomiting 03/11/20 06:30 04/10/20 06:29 Vancomycin HCl (Vanco pharmacy to dose) 1 ea DAILY PRN MISC Per rx protocol 03/11/20 06:30 04/10/20 06:29 Vancomycin HCl 500 mg/Sodium Chloride 110 ml @ 110 mls/hr Q12HR@0600,1800 IVPB 03/15/20 18:00 03/20/20 17:59 03/16/20 05:01 Zinc Sulfate (Zinc Sulfate) 220 mg DAILY ORAL 03/13/20 09:00 03/23/20 08:59 03/16/20 09:00 Allergies: Coded Allergies: No Known Allergies (Unverified , 03/11/20) Subjective status post a trach and PEG, underventilation, open eyes with deep stimulation, unable to follow command.WBC: 20.6. Objective Last Vital Signs Date Time Temp Pulse Resp B/P (MAP) Pulse Ox O2 Delivery O2 Flow Rate FiO2 03/16/20 10:30 106 20 35 03/16/20 09:00 113/60 03/16/20 04:00 98.2 100 03/16/20 00:00 Mechanical Ventilator Laboratory Tests Test 03/15/20 14:10 03/15/20 17:27 03/16/20 00:50 03/16/20 04:53 Vancomycin Level Trough 20.6 ug/mL (5.0-12.0) H POC Whole Blood Glucose 128 MG/DL (74-106) H Pending Pending Test 03/16/20 05:20 White Blood Count 20.6 K/UL (4.8-10.8) H Red Blood Count 3.49 M/UL (4.20-5.40) L Hemoglobin 9.6 G/DL (12.0-16.0) L Hematocrit 31.9 % (37.0-47.0) L Mean Corpuscular Volume 91 FL (80-99) Mean Corpuscular Hemoglobin 27.5 PG (27.0-31.0) Mean Corpuscular Hemoglobin Concent 30.1 G/DL (32.0-36.0) L Red Cell Distribution Width 17.2 % (11.6-14.8) H Platelet Count 524 K/UL (150-450) H Mean Platelet Volume 7.7 FL (6.5-10.1) Neutrophils (%) (Auto) % (45.0-75.0) Lymphocytes (%) (Auto) % (20.0-45.0) Monocytes (%) (Auto) % (1.0-10.0) Eosinophils (%) (Auto) % (0.0-3.0) Basophils (%) (Auto) % (0.0-2.0) Differential Total Cells Counted 100 Neutrophils % (Manual) 76 % (45-75) H Lymphocytes % (Manual) 16 % (20-45) L Monocytes % (Manual) 0 % (1-10) L Eosinophils % (Manual) 7 % (0-3) H Basophils % (Manual) 1 % (0-2) Band Neutrophils 0 % (0-8) Platelet Estimate Increased H Platelet Morphology Normal Hypochromasia 1+ Anisocytosis 1+ Sodium Level 145 MMOL/L (136-145) Potassium Level 4.3 MMOL/L (3.5-5.1) Chloride Level 111 MMOL/L (98-107) H Carbon Dioxide Level 28 MMOL/L (21-32) Anion Gap 6 mmol/L (5-15) Blood Urea Nitrogen 15 mg/dL (7-18) Creatinine 0.8 MG/DL (0.55-1.30) Estimat Glomerular Filtration Rate > 60 mL/min (>60) Glucose Level 133 MG/DL (74-106) H Calcium Level 8.3 MG/DL (8.5-10.1) L Phosphorus Level 2.9 MG/DL (2.5-4.9) Magnesium Level 2.4 MG/DL (1.8-2.4) Total Bilirubin 0.2 MG/DL (0.2-1.0) Aspartate Amino Transf (AST/SGOT) 21 U/L (15-37) Alanine Aminotransferase (ALT/SGPT) 35 U/L (12-78) Alkaline Phosphatase 122 U/L (46-116) H Total Protein 7.0 G/DL (6.4-8.2) Albumin 1.4 G/DL (3.4-5.0) L Globulin 5.6 g/dL Albumin/Globulin Ratio 0.2 (1.0-2.7) L Microbiology Date/Time Source Procedure Growth Status 03/14/20 02:00 Blood Blood Culture - Preliminary NO GROWTH AFTER 24 HOURS Resulted 03/13/20 17:04 Stool Clostridium difficile Toxin Assay - Final Complete Intake and Output 03/15/20 03/16/20 19:00 07:00 Intake Total 1523 ml 542 ml Output Total 1500 ml 375 ml Balance 23 ml 167 ml Free Water 50 ml IV Total 983 ml 110 ml Tube Feeding 540 ml 382 ml Output Urine Total 1500 ml 375 ml # Bowel Movements 1 2 Objective General: Responsive with Open eyes, Unable to F/U commands. HEENT: NCAT, sclera anicteric, PERRL, Neck: tracheostomy site intact. Lungs: Mechanical breath sounds, no Wheeze or Rales. Heart: Regular rate and rhythm, normal S1/S2, no murmurs. Abdomen: soft, nontender, nondistended. + BS, PEH site intact. Extremities: No Cyanosis , clubbing or edema. Neuro: limited secondary to patient status, able to move upper extremities, unable to move lower extremities. Skin: warm, no rash, pressure ulcer on lower extremities. Assessment/Plan Assessment/Plan 1. Left lower lobe pneumonia. 2. chronic Respiratory failure S/P tracheostomy. 3. Hypernatremia. 4. Renal failure. 5. Hypoxemia. 6. Tracheostomy dependence. 7. Chronic obstructive pulmonary disease. 8. Diabetes type 2. 9. Parkinson disease. 10. Gout. 11. Glaucoma. 12. Sacral decubitus ulcer stage IV. 13. History of intracranial hemorrhage. 14. Hydrocephalus. 15. MRSA bacteremia. 16. UTI=MDR acenitobacter TREATMENT: 1. Left lower lobe pneumonia/respiratory failure/sepsis. Pulmonary consultation =Dr. Patti Matta. ABX= vancomycin IV Infectious disease=Dr. Villegas We will follow recommendations of Infectious Disease. 2. Hypernatremia. Hypernatremia may be secondary to renal failure versus dehydration. Nephrology consultation =. 3. Renal failure nephrology consultation =Dr. Huntley. 4. Tracheostomy dependence. 5. Chronic obstructive pulmonary disease. 6. Diabetes type 2. NovoLog sliding scale has been instituted. 7. Parkinson disease. 8. Gout. Continue allopurinol as above. 9. Glaucoma. 10. Sacral decubitus ulcer stage IV. A general surgery consultation has been obtained with Dr. Chris Hunter. 11. History of intracranial hemorrhage. 12. Await DEBBIE; cardiology=Dr Alejandre Tolerated tube feeding @ 45 cc/hr Jesus Lutz MD Mar 16, 2020 14:08
[2020-03-16] MEDS ORDERED: NS 275ml ONE (14:53)
[2020-03-16 16:00] VITALS: BP 111/66
--- NOTE | 2020-03-16 17:02 | Cardiac Electrophysiology PN ---
Assessment/Plan Assessment/Plan 1. MRSA bacteremia. Most recent blood culture from March 13, 2020 showed no growth. Her echocardiogram showed ejection fraction of 60-65% with no clear vegetation. Transesophageal echocardiogram pending. 2. Ventilator-dependent respiratory failure, status post tracheostomy. 3. Dysphagia, status post PEG placement. 4. History of intracranial hemorrhage. 5. COPD. 6. Diabetes. 7. Glaucoma. 8. Sacral decubitus stage IV. 9. Hypertension, on amlodipine 10 mg daily. Subjective Subjective Off pressors on the Vent in sinus tach Fio2 35% Objective Last 24 Hour Vital Signs Date Time Temp Pulse Resp B/P (MAP) Pulse Ox O2 Delivery O2 Flow Rate FiO2 03/16/20 16:00 98.8 91 18 111/66 (81) 100 03/16/20 16:00 93 03/16/20 15:00 86 21 35 03/16/20 13:30 104 24 35 03/16/20 12:00 108 03/16/20 12:00 100.6 104 20 110/63 (79) 100 03/16/20 10:30 106 20 35 03/16/20 09:00 108 113/60 03/16/20 08:00 99.9 107 19 109/69 (82) 100 03/16/20 08:00 108 03/16/20 07:00 103 23 35 03/16/20 04:42 112 23 35 03/16/20 04:00 100 03/16/20 04:00 98.2 98 20 113/60 (77) 100 03/16/20 03:31 106 03/16/20 03:15 92 26 35 03/16/20 01:18 90 28 35 03/16/20 00:00 98.0 93 18 125/78 (94) 100 03/16/20 00:00 100 03/16/20 00:00 Mechanical Ventilator 03/15/20 23:31 104 03/15/20 23:08 104 27 35 03/15/20 20:40 93 29 35 03/15/20 20:00 Mechanical Ventilator 03/15/20 20:00 98.2 94 20 101/66 (78) 100 03/15/20 20:00 100 03/15/20 19:25 98 24 35 03/15/20 19:14 98 Intake and Output 03/15/20 03/16/20 19:00 07:00 Intake Total 1523 ml 542 ml Output Total 1500 ml 375 ml Balance 23 ml 167 ml Free Water 50 ml IV Total 983 ml 110 ml Tube Feeding 540 ml 382 ml Output Urine Total 1500 ml 375 ml # Bowel Movements 1 2 Laboratory Tests Test 03/15/20 17:27 03/16/20 00:50 03/16/20 04:53 03/16/20 05:20 POC Whole Blood Glucose 128 MG/DL (74-106) H Pending Pending White Blood Count 20.6 K/UL (4.8-10.8) H Red Blood Count 3.49 M/UL (4.20-5.40) L Hemoglobin 9.6 G/DL (12.0-16.0) L Hematocrit 31.9 % (37.0-47.0) L Mean Corpuscular Volume 91 FL (80-99) Mean Corpuscular Hemoglobin 27.5 PG (27.0-31.0) Mean Corpuscular Hemoglobin Concent 30.1 G/DL (32.0-36.0) L Red Cell Distribution Width 17.2 % (11.6-14.8) H Platelet Count 524 K/UL (150-450) H Mean Platelet Volume 7.7 FL (6.5-10.1) Neutrophils (%) (Auto) % (45.0-75.0) Lymphocytes (%) (Auto) % (20.0-45.0) Monocytes (%) (Auto) % (1.0-10.0) Eosinophils (%) (Auto) % (0.0-3.0) Basophils (%) (Auto) % (0.0-2.0) Differential Total Cells Counted 100 Neutrophils % (Manual) 76 % (45-75) H Lymphocytes % (Manual) 16 % (20-45) L Monocytes % (Manual) 0 % (1-10) L Eosinophils % (Manual) 7 % (0-3) H Basophils % (Manual) 1 % (0-2) Band Neutrophils 0 % (0-8) Platelet Estimate Increased H Platelet Morphology Normal Hypochromasia 1+ Anisocytosis 1+ Sodium Level 145 MMOL/L (136-145) Potassium Level 4.3 MMOL/L (3.5-5.1) Chloride Level 111 MMOL/L (98-107) H Carbon Dioxide Level 28 MMOL/L (21-32) Anion Gap 6 mmol/L (5-15) Blood Urea Nitrogen 15 mg/dL (7-18) Creatinine 0.8 MG/DL (0.55-1.30) Estimat Glomerular Filtration Rate > 60 mL/min (>60) Glucose Level 133 MG/DL (74-106) H Calcium Level 8.3 MG/DL (8.5-10.1) L Phosphorus Level 2.9 MG/DL (2.5-4.9) Magnesium Level 2.4 MG/DL (1.8-2.4) Total Bilirubin 0.2 MG/DL (0.2-1.0) Aspartate Amino Transf (AST/SGOT) 21 U/L (15-37) Alanine Aminotransferase (ALT/SGPT) 35 U/L (12-78) Alkaline Phosphatase 122 U/L (46-116) H Total Protein 7.0 G/DL (6.4-8.2) Albumin 1.4 G/DL (3.4-5.0) L Globulin 5.6 g/dL Albumin/Globulin Ratio 0.2 (1.0-2.7) L Microbiology Date/Time Source Procedure Growth Status 03/14/20 02:00 Blood Blood Culture - Preliminary NO GROWTH AFTER 24 HOURS Resulted 03/13/20 17:04 Stool Clostridium difficile Toxin Assay - Final Complete Objective HEAD AND NECK: No JVD. LUNGS: Coarse rhonchi. She is status post tracheostomy. CARDIOVASCULAR: Regular S1 and S2 with no gallop or rub. Status post PEG. EXTREMITIES: 1+ pitting edema with sacral decubitus. Shay Alejandre MD Mar 16, 2020 17:02
--- NOTE | 2020-03-16 17:53 | NUR ---
FURNACE CLERKDISTRICT GAUGER SI; RESP FAILURE TRACH/VENT DEPENDENT,SEPSIS T. 100.6 HR 104 RR 20 B/P 110/63 AC 16 TV 400 FIO2 35% PEEP 5 WBC 20.6 ALK PHOS 172 IS: VANCO IV PEPCID HEPARIN SUBC STEP DOWN STATUS
--- NOTE | 2020-03-16 17:56 | NUR ---
LEGISLATIVE ANALYST NOTES CLINICALS REVIEWED AND FAXED.
--- NOTE | 2020-03-16 19:10 | NUR ---
NURSE NOTES: Important Events on Shift: Received report from Rupehs Sullivan RN. Pt in bed, alert, mechanically ventilated. No signs or symptoms of pain or distress noted at this time; FLACC 0. Vent settings: Portex 7, AC 16, TV 400, peep 5. GT feeding Glucerna 1.2 @ 45ml/hr. Pt had a few instances of diarrhea on AM shift, will hold PM laxatives. OB stool positive, umesh hold heparin per protocol. Will continue plan of care and close monitoring. Patient Status: Stable throughout shift per report. Diet: Glu 1.2 @ @ 45ml/hr Pending Orders: DEBBIE postponed per report, no orders from MD to reschedule. CXR ordered. Vanco trough at 0500 on 03/17/20. Pending Results/Labs: CRP, phos, CBC, Sed rate, CMP Pending MD notification: None Latest Vital Signs: Temperature 98.8 , Pulse 92 , B/P 112 /76 , Respiratory Rate 26 , O2 SAT 100 , Mechanical Ventilator, O2 Flow Rate . Vital Sign Comment: stable throughout shift per report. EKG Rhythm: Sinus Rhythm Rhythm change?: N MD Notified?: N - MD Response: Latest Ochoa Fall Score: 35 Fall Risk: Medium Risk Safety Measures: Call light Within Reach, Bed Alarm Zone 1, Side Rails Side Rails x3, Bed position Low and Locked. Fall Precautions: YES Yellow Socks YES Door Sign YES Patient Fall Education YES
[2020-03-16 20:00] VITALS: BP 112/76
[2020-03-17] VITALS: BP 109/69
[2020-03-17 04:00] VITALS: BP 123/68
[2020-03-17 05:04] LABS: ALANINE AMINOTRANSFERASE 31 U/L (12-78); ALBUMIN 1.5 G/DL (3.4-5.0); ALBUMIN/GLOBULIN RATIO 0.3 (1.0-2.7); ALKALINE PHOSPHATASE 116 U/L (46-116); ANION GAP 4 mmol/L (5-15); ASPARTATE AMINO TRANSFERASE 15 U/L (15-37); BILIRUBIN,TOTAL 0.3 MG/DL (0.2-1.0); BLOOD UREA NITROGEN 18 mg/dL (7-18); CALCIUM 8.8 MG/DL (8.5-10.1); CARBON DIOXIDE 29 MMOL/L (21-32); CHLORIDE 112 MMOL/L (98-107); CREATININE 0.8 MG/DL (0.55-1.30); POTASSIUM 4.4 MMOL/L (3.5-5.1); SODIUM 145 MMOL/L (136-145)
[2020-03-17 05:05] LABS: PHOSPHORUS 2.6 MG/DL (2.5-4.9)
[2020-03-17 05:10] LABS: HEMATOCRIT 32.3 % (37.0-47.0); HEMOGLOBIN 9.8 G/DL (12.0-16.0); MEAN CORPUSCULAR VOLUME 92 FL (80-99); PLATELET COUNT 573 K/UL (150-450); RED BLOOD COUNT 3.51 M/UL (4.20-5.40); RED CELL DISTRIBUTION WIDTH 17.4 % (11.6-14.8)
[2020-03-17 05:28] LABS: WHITE BLOOD COUNT 22.2 K/UL (4.8-10.8)
[2020-03-17] MEDS: NovoLOG Insulin Flexpen SUBQ SCH ×5 (06:00→23:53)
[2020-03-17] MEDS: Vancomycin 500 MG in NS 110 ML IVPB SCH ×2 (06:00→20:05)
--- NOTE | 2020-03-17 07:34 | Infectious Diseases Prog Note ---
Assessment/Plan 74yo F with: Febrile Leukocytosis Sepsis Left lower lung infiltrate Acute on chronic resp failure SP trach MRSA bacteremia 03/11 BCx +MRSA Resp cx +PsA (S-Zosyn, I-merissa and cefepime) UCx 30-40k ACB (colonizer) COVID rapid Ag neg CXR: Midline tracheostomy. Small left pleural effusion. Hyperinflation with flattening of the diaphragms and emphysema, consistent with COPD. No lobar infiltrate. 03/12 BCx NTD 03/13 C.dif neg 03/13 BCx NTD 03/14 BCx NTD 03/14 CT A/P: 1. Sacrococcygeal decubitus ulcers with associated osteomyelitis. 2. Small left pleural effusion. Left lower lobe atelectasis. 3. Bladder wall thickening. Foci of gas in the bladder. Correlate for recent instrumentation versus cystitis. 03/14 TTE: No vegetations, thickened valves MRSA nares positive VDRF S/p trach/PEG Bed bound Sacral decub ulceration w/ underlying OM Plan: Start Zosyn #1 for broader coverage given ongoing fever, increasing WBC, ?pna Cont vancomycin #7 for MRSA bacteremia, duration TBD Recommend DEBBIE given MRSA bacteremia of community onset without clear source, ordered by Cards F/u repeat BCx to ensure clearance of bacteremia Trend WBC 03/14 SP cefepime #4 Monitor CBC/CMP Monitor temp curve, hemodynamics Monitor resp status D/w RN Thank you for this consult. [facility] will continue to follow. Subjective Allergies: Coded Allergies: No Known Allergies (Unverified , 03/11/20) Ongoing low grade fevers to 100.6 WBC up to 22 NAD on vent, 35% PEEP 5 Objective Last 24 Hour Vital Signs Date Time Temp Pulse Resp B/P (MAP) Pulse Ox O2 Delivery O2 Flow Rate FiO2 03/17/20 05:09 95 23 35 03/17/20 04:00 100 03/17/20 04:00 99.3 97 20 123/68 (86) 100 03/17/20 04:00 103 03/17/20 03:16 100 24 35 03/17/20 01:30 92 26 35 03/17/20 00:00 100 03/17/20 00:00 96 03/17/20 00:00 98.9 103 19 109/69 (82) 100 03/17/20 00:00 Mechanical Ventilator 03/16/20 23:30 96 22 35 03/16/20 21:21 95 25 35 03/16/20 20:00 98.8 94 20 112/76 (88) 100 03/16/20 20:00 Mechanical Ventilator 03/16/20 20:00 100 03/16/20 20:00 92 03/16/20 19:30 97 24 35 03/16/20 17:00 85 22 35 03/16/20 16:00 98.8 91 18 111/66 (81) 100 03/16/20 16:00 93 03/16/20 15:00 86 21 35 03/16/20 13:30 104 24 35 03/16/20 12:00 108 03/16/20 12:00 100.6 104 20 110/63 (79) 100 03/16/20 10:30 106 20 35 03/16/20 09:00 108 113/60 03/16/20 08:00 99.9 107 19 109/69 (82) 100 03/16/20 08:00 108 Height (Feet): 5 Height (Inches): 5.00 Weight (Pounds): 147 Gen: NAD in bed HEENT: NCAT, trach CV: RRR Pulm: CTAB Abd: Soft, NTND, +PEG +SPC Ext: No c/c/e Skin: Stage 4 sacral decub ulceration, clean Neuro: Awake, not interactive Laboratory Tests Test 03/17/20 01:12 03/17/20 03:50 03/17/20 06:50 POC Whole Blood Glucose 152 MG/DL (74-106) H 140 MG/DL (74-106) H White Blood Count 22.2 K/UL (4.8-10.8) *H Red Blood Count 3.51 M/UL (4.20-5.40) L Hemoglobin 9.8 G/DL (12.0-16.0) L Hematocrit 32.3 % (37.0-47.0) L Mean Corpuscular Volume 92 FL (80-99) Mean Corpuscular Hemoglobin 28.0 PG (27.0-31.0) Mean Corpuscular Hemoglobin Concent 30.3 G/DL (32.0-36.0) L Red Cell Distribution Width 17.4 % (11.6-14.8) H Platelet Count 573 K/UL (150-450) H Mean Platelet Volume 8.0 FL (6.5-10.1) Neutrophils (%) (Auto) % (45.0-75.0) Lymphocytes (%) (Auto) % (20.0-45.0) Monocytes (%) (Auto) % (1.0-10.0) Eosinophils (%) (Auto) % (0.0-3.0) Basophils (%) (Auto) % (0.0-2.0) Neutrophils % (Manual) Pending Lymphocytes % (Manual) Pending Platelet Estimate Pending Platelet Morphology Pending Erythrocyte Sedimentation Rate 118 MM/HR (0-30) H Sodium Level 145 MMOL/L (136-145) Potassium Level 4.4 MMOL/L (3.5-5.1) Chloride Level 112 MMOL/L (98-107) H Carbon Dioxide Level 29 MMOL/L (21-32) Anion Gap 4 mmol/L (5-15) L Blood Urea Nitrogen 18 mg/dL (7-18) Creatinine 0.8 MG/DL (0.55-1.30) Estimat Glomerular Filtration Rate > 60 mL/min (>60) Glucose Level 141 MG/DL (74-106) H Calcium Level 8.8 MG/DL (8.5-10.1) Phosphorus Level 2.6 MG/DL (2.5-4.9) Magnesium Level 2.5 MG/DL (1.8-2.4) H Total Bilirubin 0.3 MG/DL (0.2-1.0) Aspartate Amino Transf (AST/SGOT) 15 U/L (15-37) Alanine Aminotransferase (ALT/SGPT) 31 U/L (12-78) Alkaline Phosphatase 116 U/L (46-116) C-Reactive Protein, Quantitative 18.5 mg/dL (0.00-0.90) H Total Protein 7.2 G/DL (6.4-8.2) Albumin 1.5 G/DL (3.4-5.0) L Globulin 5.7 g/dL Albumin/Globulin Ratio 0.3 (1.0-2.7) L Vancomycin Level Trough 16.4 ug/mL (5.0-12.0) H Current Medications Medications (Trade) Dose Ordered Sig/Zaki Route PRN Reason Start Time Stop Time Status Last Admin Dose Admin Acetaminophen (Tylenol) 650 mg Q6H PRN GT Temp >100.5, Mild Pain 03/11/20 06:30 04/10/20 06:29 03/14/20 01:23 Acetaminophen/ Codeine Phosphate (Tylenol #3) 1 tab Q6H PRN GT For Mod-Severe Pain 03/11/20 06:30 03/18/20 06:29 03/15/20 01:00 Amlodipine Besylate (Norvasc) 10 mg DAILY GT 03/11/20 09:00 04/10/20 08:59 03/16/20 09:00 Aspirin (ASA) 81 mg DAILY GT 03/11/20 09:00 04/25/20 08:59 03/16/20 09:00 Calcitonin [place] (Miacalcin) 1 sprays DAILY NASAL 03/13/20 11:00 06/11/20 10:59 03/16/20 09:00 Dextrose (Dextrose 50%) 25 ml Q30M PRN IV Hypoglycemia 03/13/20 23:30 06/11/20 23:29 Dextrose (Dextrose 50%) 50 ml Q30M PRN IV Hypoglycemia 03/13/20 23:30 06/11/20 23:29 Diphenhydramine HCl (Benadryl) 25 mg Q8H PRN ORAL Itching 03/14/20 15:00 04/13/20 14:59 03/14/20 15:50 Famotidine (Pepcid) 40 mg BID GT 03/12/20 18:00 06/09/20 08:59 03/16/20 17:52 Heparin Sodium (Porcine) (Heparin 5000 units/ml) 5,000 units EVERY 12 HOURS SUBQ 03/11/20 09:00 04/25/20 08:59 03/13/20 20:49 Insulin Aspart (NovoLOG) Q6HR SUBQ 03/14/20 00:00 06/12/20 00:00 03/17/20 06:00 Ondansetron HCl (Zofran) 4 mg Q4H PRN IVP Nausea & Vomiting 03/11/20 06:30 04/10/20 06:29 Vancomycin HCl (Vanco pharmacy to dose) 1 ea DAILY PRN MISC Per rx protocol 03/11/20 06:30 12/14/20 06:29 Vancomycin HCl 500 mg/Sodium Chloride 110 ml @ 110 mls/hr Q12HR@0600,1800 IVPB 03/15/20 18:00 03/20/20 17:59 03/17/20 06:00 Zinc Sulfate (Zinc Sulfate) 220 mg DAILY ORAL 03/13/20 09:00 03/23/20 08:59 03/16/20 09:00 Shirley Villegas M.D. Mar 17, 2020 07:34
--- NOTE | 2020-03-17 07:47 | NUR ---
NURSE HAND-OFF REPORT: Important Events on Shift: None Patient Status: Stable Diet: Gluc 1.2 @ 45ml/hr Pending Orders: DEBBIE cancelled, not yet rescheduled. CXR Pending Results/Labs: CRP, PHOS, sed rate, mag, CMP Pending MD notification: None Latest Vital Signs: Temperature 99.3 , Pulse 95 , B/P 123 /68 , Respiratory Rate 23 , O2 SAT 100 , Mechanical Ventilator, O2 Flow Rate . Vital Sign Comment: Stable throughout shift EKG Rhythm: Sinus Tachycardia Rhythm change?: N MD Notified?: N - MD Response: Latest Ochoa Fall Score: 35 Fall Risk: Medium Risk Safety Measures: Call light Within Reach, Bed Alarm Zone 1, Side Rails Side Rails x3, Bed position Low and Locked. Fall Precautions: Yes Yellow Socks YES Door Sign YES Patient Fall Education YES Report given to Jacqueline Sullivan RN
[2020-03-17 08:00] VITALS: BP 124/72
--- NOTE | 2020-03-17 08:08 | NUR ---
NURSE NOTES: pt in bed so, pt opens eyes but is non verbal. Oral care provided. pt was suctioned and repositioned. Pt suprapubic cath is leaking. Gtube patent no residual. 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 pt on Vent. O2 96-98. Bed in lowest position, call light within reach. Will continue to monitor pt.
[2020-03-17] MEDS: Piperacillin/Tazobactam 3.375 GM in NS 110 ML IVPB SCH ×4 (09:00→21:46)
--- NOTE | 2020-03-17 09:13 | NUR ---
RD ASSESSMENT & RECOMMENDATIONS SEE CARE ACTIVITY FOR COMPLETE ASSESSMENT DAILY ESTIMATED NEEDS: Needs based on Advanced wound, critical care, underweight, BRAKE REPAIRER TF/ 45.5kg 30-40 kcals/kg 5341-4856 total kcals 1.5-2 g protein/kg 68-91 g total protein 30-40 mL/kg 0809-0378 total fluid mLs NUTRITION DIAGNOSIS: Increased kcal/prot needs R/T underweight status, wound healing as evidenced by pt @83% IBW w/ underweight BMI of 17.2, admitted w/ multiple wounds, including stage 4 sacral wound. CURRENT TF:Glucerna 1.2 @ 45ml/hr x 24 hrs ENTERAL NUTRITION RECOMMENDATIONS: Glucerna 1.2 @ 60ml/hr x 24 hrs to provide 1440ml, 1728kcal, 86g prot, 1159ml free water * Increase goal rate to 60ml/hr x 24 hrs to meet 100% est kcal/prot needs -> 1.9g prot/kg * HOB over 30 degrees/ water flush per MD * add Shen BID ADDITIONAL RECOMMENDATIONS: * Per SNF: HT=64" and QF=955# vs EMR wt of 147lbs -> rec daily calibrated bedscale wt * Wound healing: TF rec @ goal will provide 100% RDI add Vit C 500mg BID, continue ZnSO4 220gm QD x 10 days Shen BID via PEG * Monitor BGs, consider NISS: h/o DM -> NISS now added * Add probiotics for diarrhea
[2020-03-17] MEDS: Heparin 5000 units/ml inj SUBQ SCH ×2 (09:39→20:07)
[2020-03-17] MEDS: Zinc Sulfate 220mg ORAL SCH (09:43)
[2020-03-17] MEDS: Aspirin Baby 81mg GT SCH (09:44)
--- NOTE | 2020-03-17 10:25 | NUR ---
RADIOLOGY DEPT., CHEST X-RAY DONE.-P.DYE
--- NOTE | 2020-03-17 10:43 | Pulmonolgy Critical Care Note ---
Critical Care - Asmt/Plan Problems: (1) Acute on chronic respiratory failure (2) Sepsis (3) Chronic respiratory failure requiring continuous mechanical ventilation through tracheostomy (4) Stage 4 decubitus ulcer (5) Diabetes mellitus (6) Parkinson's disease dementia (7) Gout (8) Idiopathic obstructive hydrocephalus (9) Severe protein-calorie malnutrition (10) History of intracranial hemorrhage (11) Chronic vegetative state Respiratory: monitor respiratory rate, adjust FIO2, CXR Cardiac: continue to monitor HR/BP Renal: F/U I&O, keep IV fluid, check electrolytes Infectious Disease: check cultures, continue antibiotics Gastrointestinal: continue feedings/current rate Endocrine: monitor blood sugar, continue sliding scale insulin Hematologic: monitor H/H, transfuse if hgb<8.5 Neurologic: PRN Morphine, keep patient comfortable Affect: PRN ativan Prophylaxis: Heparin Notes Reviewed: cardio, renal Discussed with: nurses, consultants, case supervisoror nurse manager - Objective Last 24 Hour Vital Signs Date Time Temp Pulse Resp B/P (MAP) Pulse Ox O2 Delivery O2 Flow Rate FiO2 03/17/20 09:44 100 124/72 03/17/20 09:00 104 03/17/20 05:09 95 23 35 03/17/20 04:00 100 03/17/20 04:00 99.3 97 20 123/68 (86) 100 03/17/20 04:00 103 03/17/20 03:16 100 24 35 03/17/20 01:30 92 26 35 03/17/20 00:00 100 03/17/20 00:00 96 03/17/20 00:00 98.9 103 19 109/69 (82) 100 03/17/20 00:00 Mechanical Ventilator 03/16/20 23:30 96 22 35 03/16/20 21:21 95 25 35 03/16/20 20:00 98.8 94 20 112/76 (88) 100 03/16/20 20:00 Mechanical Ventilator 03/16/20 20:00 100 03/16/20 20:00 92 03/16/20 19:30 97 24 35 03/16/20 17:00 85 22 35 03/16/20 16:00 98.8 91 18 111/66 (81) 100 03/16/20 16:00 93 03/16/20 15:00 86 21 35 03/16/20 13:30 104 24 35 03/16/20 12:00 108 03/16/20 12:00 100.6 104 20 110/63 (79) 100 Status: awake Condition: critical, improving Neck: full ROM Heart: HR/BP stable Abdomen: soft, active bowel sounds Decubiti: location Accucheck: 140 Critical Care - Subjective ROS Limited/Unobtainable: Yes Interval Events: late note for 03/16 Condition: critical, improving FI02: 35 Vent Support Breath Rate: 16 Vent Support Mode: AC Vent Tidal Volume: 400 Sputum Amount: Small PEEP: 5.0 PIP: 24 Tube Feeding Amount: 45 I&O: Intake and Output 03/16/20 03/17/20 19:00 07:00 Intake Total 240 ml 605 ml Output Total 450 ml Balance -210 ml 605 ml Free Water 60 ml IV Total 110 ml Tube Feeding 180 ml 495 ml Output Urine Total 450 ml Patti Matta MD Mar 17, 2020 10:43
--- NOTE | 2020-03-17 10:47 | Pulmonolgy Critical Care Note ---
Critical Care - Asmt/Plan Problems: (1) Acute on chronic respiratory failure (2) Sepsis (3) Chronic respiratory failure requiring continuous mechanical ventilation through tracheostomy (4) Stage 4 decubitus ulcer (5) Diabetes mellitus (6) Parkinson's disease dementia (7) Gout (8) Idiopathic obstructive hydrocephalus (9) Severe protein-calorie malnutrition (10) History of intracranial hemorrhage (11) Chronic vegetative state Respiratory: monitor respiratory rate, adjust FIO2, CXR Cardiac: continue to monitor HR/BP Renal: F/U I&O, check electrolytes Infectious Disease: check cultures Gastrointestinal: continue feedings/current rate Endocrine: monitor blood sugar Hematologic: monitor H/H, transfuse if hgb<8.5 Neurologic: PRN Ativan, keep patient comfortable Prophylaxis: Protonix, Heparin Time Spent (Minutes): 40 Notes Reviewed: psychology department chair, cardio, renal Discussed with: nurses, consultants, case management social workerclient customer manager - Objective Last 24 Hour Vital Signs Date Time Temp Pulse Resp B/P (MAP) Pulse Ox O2 Delivery O2 Flow Rate FiO2 03/17/20 09:44 100 124/72 03/17/20 09:00 104 03/17/20 05:09 95 23 35 03/17/20 04:00 100 03/17/20 04:00 99.3 97 20 123/68 (86) 100 03/17/20 04:00 103 03/17/20 03:16 100 24 35 03/17/20 01:30 92 26 35 03/17/20 00:00 100 03/17/20 00:00 96 03/17/20 00:00 98.9 103 19 109/69 (82) 100 03/17/20 00:00 Mechanical Ventilator 03/16/20 23:30 96 22 35 03/16/20 21:21 95 25 35 03/16/20 20:00 98.8 94 20 112/76 (88) 100 03/16/20 20:00 Mechanical Ventilator 03/16/20 20:00 100 03/16/20 20:00 92 03/16/20 19:30 97 24 35 03/16/20 17:00 85 22 35 03/16/20 16:00 98.8 91 18 111/66 (81) 100 03/16/20 16:00 93 03/16/20 15:00 86 21 35 03/16/20 13:30 104 24 35 03/16/20 12:00 108 03/16/20 12:00 100.6 104 20 110/63 (79) 100 Status: sedated Condition: critical, grave, improving Neck: full ROM Lungs: chest wall tender Heart: HR/BP stable Abdomen: soft Extremities: no C/C/E Decubiti: location Accucheck: 140 Critical Care - Subjective ROS Limited/Unobtainable: Yes Interval Events: no new complains, WBC rising FI02: 35 Vent Support Breath Rate: 16 Vent Support Mode: AC Vent Tidal Volume: 400 Sputum Amount: Small PEEP: 5.0 PIP: 24 Tube Feeding Amount: 45 I&O: Intake and Output 03/16/20 03/17/20 19:00 07:00 Intake Total 240 ml 605 ml Output Total 450 ml Balance -210 ml 605 ml Free Water 60 ml IV Total 110 ml Tube Feeding 180 ml 495 ml Output Urine Total 450 ml CXR: no change Labs: Laboratory Tests Test 03/17/20 01:12 03/17/20 03:50 03/17/20 06:50 POC Whole Blood Glucose 152 MG/DL (74-106) H 140 MG/DL (74-106) H White Blood Count 22.2 K/UL (4.8-10.8) *H Red Blood Count 3.51 M/UL (4.20-5.40) L Hemoglobin 9.8 G/DL (12.0-16.0) L Hematocrit 32.3 % (37.0-47.0) L Mean Corpuscular Volume 92 FL (80-99) Mean Corpuscular Hemoglobin 28.0 PG (27.0-31.0) Mean Corpuscular Hemoglobin Concent 30.3 G/DL (32.0-36.0) L Red Cell Distribution Width 17.4 % (11.6-14.8) H Platelet Count 573 K/UL (150-450) H Mean Platelet Volume 8.0 FL (6.5-10.1) Neutrophils (%) (Auto) % (45.0-75.0) Lymphocytes (%) (Auto) % (20.0-45.0) Monocytes (%) (Auto) % (1.0-10.0) Eosinophils (%) (Auto) % (0.0-3.0) Basophils (%) (Auto) % (0.0-2.0) Differential Total Cells Counted 100 Neutrophils % (Manual) 81 % (45-75) H Lymphocytes % (Manual) 4 % (20-45) L Monocytes % (Manual) 5 % (1-10) Eosinophils % (Manual) 9 % (0-3) H Basophils % (Manual) 1 % (0-2) Band Neutrophils 0 % (0-8) Platelet Estimate Adequate Platelet Morphology Normal Anisocytosis 1+ Erythrocyte Sedimentation Rate 118 MM/HR (0-30) H Sodium Level 145 MMOL/L (136-145) Potassium Level 4.4 MMOL/L (3.5-5.1) Chloride Level 112 MMOL/L (98-107) H Carbon Dioxide Level 29 MMOL/L (21-32) Anion Gap 4 mmol/L (5-15) L Blood Urea Nitrogen 18 mg/dL (7-18) Creatinine 0.8 MG/DL (0.55-1.30) Estimat Glomerular Filtration Rate > 60 mL/min (>60) Glucose Level 141 MG/DL (74-106) H Calcium Level 8.8 MG/DL (8.5-10.1) Phosphorus Level 2.6 MG/DL (2.5-4.9) Magnesium Level 2.5 MG/DL (1.8-2.4) H Total Bilirubin 0.3 MG/DL (0.2-1.0) Aspartate Amino Transf (AST/SGOT) 15 U/L (15-37) Alanine Aminotransferase (ALT/SGPT) 31 U/L (12-78) Alkaline Phosphatase 116 U/L (46-116) C-Reactive Protein, Quantitative 18.5 mg/dL (0.00-0.90) H Total Protein 7.2 G/DL (6.4-8.2) Albumin 1.5 G/DL (3.4-5.0) L Globulin 5.7 g/dL Albumin/Globulin Ratio 0.3 (1.0-2.7) L Vancomycin Level Trough 16.4 ug/mL (5.0-12.0) H Patti Matta MD Mar 17, 2020 10:47
[2020-03-17 12:00] VITALS: BP 112/68
--- NOTE | 2020-03-17 12:25 | Cardiac Electrophysiology PN ---
Assessment/Plan Assessment/Plan 1. MRSA bacteremia. Most recent blood culture from March 13, 2020 showed no growth. Echocardiogram showed ejection fraction of 60-65% with no clear vegetation. Transesophageal echocardiogram pending. 2. VDRF , status post tracheostomy. 3. Dysphagia, status post PEG placement. 4. History of intracranial hemorrhage. 5. COPD. 6. Diabetes. 7. Glaucoma. 8. Sacral decubitus stage IV. 9. Hypertension, on amlodipine [address] Shirley Villegas, and Cardiology department Subjective Subjective Off pressors on the Vent in sinus tach Fio2 35%. DEBBIE pending Objective Last 24 Hour Vital Signs Date Time Temp Pulse Resp B/P (MAP) Pulse Ox O2 Delivery O2 Flow Rate FiO2 03/17/20 10:45 89 20 35 03/17/20 09:44 100 124/72 03/17/20 09:08 98 23 35 03/17/20 09:00 104 03/17/20 07:19 103 21 35 03/17/20 05:09 95 23 35 03/17/20 04:00 100 03/17/20 04:00 99.3 97 20 123/68 (86) 100 03/17/20 04:00 103 03/17/20 03:16 100 24 35 03/17/20 01:30 92 26 35 03/17/20 00:00 100 03/17/20 00:00 96 03/17/20 00:00 98.9 103 19 109/69 (82) 100 03/17/20 00:00 Mechanical Ventilator 03/16/20 23:30 96 22 35 03/16/20 21:21 95 25 35 03/16/20 20:00 98.8 94 20 112/76 (88) 100 03/16/20 20:00 Mechanical Ventilator 03/16/20 20:00 100 03/16/20 20:00 92 03/16/20 19:30 97 24 35 03/16/20 17:00 85 22 35 03/16/20 16:00 98.8 91 18 111/66 (81) 100 03/16/20 16:00 93 03/16/20 15:00 86 21 35 03/16/20 13:30 104 24 35 Intake and Output 03/16/20 03/17/20 19:00 07:00 Intake Total 240 ml 605 ml Output Total 450 ml Balance -210 ml 605 ml Free Water 60 ml IV Total 110 ml Tube Feeding 180 ml 495 ml Output Urine Total 450 ml Laboratory Tests Test 03/17/20 01:12 03/17/20 03:50 03/17/20 06:50 POC Whole Blood Glucose 152 MG/DL (74-106) H 140 MG/DL (74-106) H White Blood Count 22.2 K/UL (4.8-10.8) *H Red Blood Count 3.51 M/UL (4.20-5.40) L Hemoglobin 9.8 G/DL (12.0-16.0) L Hematocrit 32.3 % (37.0-47.0) L Mean Corpuscular Volume 92 FL (80-99) Mean Corpuscular Hemoglobin 28.0 PG (27.0-31.0) Mean Corpuscular Hemoglobin Concent 30.3 G/DL (32.0-36.0) L Red Cell Distribution Width 17.4 % (11.6-14.8) H Platelet Count 573 K/UL (150-450) H Mean Platelet Volume 8.0 FL (6.5-10.1) Neutrophils (%) (Auto) % (45.0-75.0) Lymphocytes (%) (Auto) % (20.0-45.0) Monocytes (%) (Auto) % (1.0-10.0) Eosinophils (%) (Auto) % (0.0-3.0) Basophils (%) (Auto) % (0.0-2.0) Differential Total Cells Counted 100 Neutrophils % (Manual) 81 % (45-75) H Lymphocytes % (Manual) 4 % (20-45) L Monocytes % (Manual) 5 % (1-10) Eosinophils % (Manual) 9 % (0-3) H Basophils % (Manual) 1 % (0-2) Band Neutrophils 0 % (0-8) Platelet Estimate Adequate Platelet Morphology Normal Anisocytosis 1+ Erythrocyte Sedimentation Rate 118 MM/HR (0-30) H Sodium Level 145 MMOL/L (136-145) Potassium Level 4.4 MMOL/L (3.5-5.1) Chloride Level 112 MMOL/L (98-107) H Carbon Dioxide Level 29 MMOL/L (21-32) Anion Gap 4 mmol/L (5-15) L Blood Urea Nitrogen 18 mg/dL (7-18) Creatinine 0.8 MG/DL (0.55-1.30) Estimat Glomerular Filtration Rate > 60 mL/min (>60) Glucose Level 141 MG/DL (74-106) H Calcium Level 8.8 MG/DL (8.5-10.1) Phosphorus Level 2.6 MG/DL (2.5-4.9) Magnesium Level 2.5 MG/DL (1.8-2.4) H Total Bilirubin 0.3 MG/DL (0.2-1.0) Aspartate Amino Transf (AST/SGOT) 15 U/L (15-37) Alanine Aminotransferase (ALT/SGPT) 31 U/L (12-78) Alkaline Phosphatase 116 U/L (46-116) C-Reactive Protein, Quantitative 18.5 mg/dL (0.00-0.90) H Total Protein 7.2 G/DL (6.4-8.2) Albumin 1.5 G/DL (3.4-5.0) L Globulin 5.7 g/dL Albumin/Globulin Ratio 0.3 (1.0-2.7) L Vancomycin Level Trough 16.4 ug/mL (5.0-12.0) H Objective HEAD AND NECK: No JVD. LUNGS: Coarse rhonchi. She is status post tracheostomy. CARDIOVASCULAR: Regular S1 and S2 with no gallop or rub. Status post PEG. EXTREMITIES: 1+ pitting edema with sacral decubitus. Shay Alejandre MD Mar 17, 2020 12:25
--- NOTE | 2020-03-17 12:42 | NUR ---
CASE MANAGEMENT:REVIEW 03/17/20 SI: SEPSIS. AC/CHR RESPIRATORY FAILURE TRACH/VENT/GT DEPENDENT 99.3 104 23 124/72 100% ON VENT SUPPORT 35% FIO2 WBC+22.2 IS: IV ZOSYN Q8HRS IV VANCOMYCIN Q12 ZINC PO QD PEPCID GT BID NORVASC GT QD HEPARIN SQ Q12 ASA PO QD : STEP DOWN UNIT DCP: FROM [place]: DEBBIE ORDERED
--- NOTE | 2020-03-17 13:00 | NUR ---
NURSE NOTES: changed pt it appears that her suprapubic cath is leaking. repositioned tubing will continue to check. Wound dressing done at this time.
--- NOTE | 2020-03-17 13:05 | Internal Med Progress Note ---
Subjective Physician Name Jesus Lutz Attending Physician Jesus Lutz MD Current Medications Medications (Trade) Dose Ordered Sig/Zaki Route PRN Reason Start Time Stop Time Status Last Admin Dose Admin Acetaminophen (Tylenol) 650 mg Q6H PRN GT Temp >100.5, Mild Pain 03/11/20 06:30 04/10/20 06:29 03/14/20 01:23 Acetaminophen/ Codeine Phosphate (Tylenol #3) 1 tab Q6H PRN GT For Mod-Severe Pain 03/11/20 06:30 03/18/20 06:29 03/15/20 01:00 Amlodipine Besylate (Norvasc) 10 mg DAILY GT 03/11/20 09:00 04/10/20 08:59 03/17/20 09:44 Aspirin (ASA) 81 mg DAILY GT 03/11/20 09:00 04/25/20 08:59 03/17/20 09:44 Calcitonin [place] (Miacalcin) 1 sprays DAILY NASAL 03/13/20 11:00 06/11/20 10:59 03/17/20 09:42 Dextrose (Dextrose 50%) 25 ml Q30M PRN IV Hypoglycemia 03/13/20 23:30 06/11/20 23:29 Dextrose (Dextrose 50%) 50 ml Q30M PRN IV Hypoglycemia 03/13/20 23:30 06/11/20 23:29 Diphenhydramine HCl (Benadryl) 25 mg Q8H PRN ORAL Itching 03/14/20 15:00 04/13/20 14:59 03/14/20 15:50 Famotidine (Pepcid) 40 mg BID GT 03/12/20 18:00 06/09/20 08:59 03/17/20 09:43 Heparin Sodium (Porcine) (Heparin 5000 units/ml) 5,000 units EVERY 12 HOURS SUBQ 03/11/20 09:00 04/25/20 08:59 03/13/20 20:49 Insulin Aspart (NovoLOG) Q6HR SUBQ 03/14/20 00:00 06/12/20 00:00 03/17/20 06:00 Ondansetron HCl (Zofran) 4 mg Q4H PRN IVP Nausea & Vomiting 03/11/20 06:30 04/10/20 06:29 Piperacillin Sod/ Tazobactam Sod 3.375 gm/Sodium Chloride 110 ml @ 27.5 mls/hr EVERY 8 HOURS IVPB 03/17/20 09:00 03/22/20 08:59 03/17/20 09:00 Vancomycin HCl (Vanco pharmacy to dose) 1 ea DAILY PRN MISC Per rx protocol 03/11/20 06:30 04/10/20 06:29 Vancomycin HCl 500 mg/Sodium Chloride 110 ml @ 110 mls/hr Q12HR@0600,1800 IVPB 03/15/20 18:00 03/20/20 17:59 03/17/20 06:00 Zinc Sulfate (Zinc Sulfate) 220 mg DAILY ORAL 03/13/20 09:00 03/23/20 08:59 03/17/20 09:43 Allergies: Coded Allergies: No Known Allergies (Unverified , 03/11/20) Subjective status post a trach and PEG, underventilation, open eyes with deep stimulation, unable to follow command.WBC: 22.2 worsening. Objective Last Vital Signs Date Time Temp Pulse Resp B/P (MAP) Pulse Ox O2 Delivery O2 Flow Rate FiO2 03/17/20 10:45 89 20 35 03/17/20 09:44 124/72 03/17/20 04:00 99.3 100 03/17/20 00:00 Mechanical Ventilator Laboratory Tests Test 03/17/20 01:12 03/17/20 03:50 03/17/20 06:50 POC Whole Blood Glucose 152 MG/DL (74-106) H 140 MG/DL (74-106) H White Blood Count 22.2 K/UL (4.8-10.8) *H Red Blood Count 3.51 M/UL (4.20-5.40) L Hemoglobin 9.8 G/DL (12.0-16.0) L Hematocrit 32.3 % (37.0-47.0) L Mean Corpuscular Volume 92 FL (80-99) Mean Corpuscular Hemoglobin 28.0 PG (27.0-31.0) Mean Corpuscular Hemoglobin Concent 30.3 G/DL (32.0-36.0) L Red Cell Distribution Width 17.4 % (11.6-14.8) H Platelet Count 573 K/UL (150-450) H Mean Platelet Volume 8.0 FL (6.5-10.1) Neutrophils (%) (Auto) % (45.0-75.0) Lymphocytes (%) (Auto) % (20.0-45.0) Monocytes (%) (Auto) % (1.0-10.0) Eosinophils (%) (Auto) % (0.0-3.0) Basophils (%) (Auto) % (0.0-2.0) Differential Total Cells Counted 100 Neutrophils % (Manual) 81 % (45-75) H Lymphocytes % (Manual) 4 % (20-45) L Monocytes % (Manual) 5 % (1-10) Eosinophils % (Manual) 9 % (0-3) H Basophils % (Manual) 1 % (0-2) Band Neutrophils 0 % (0-8) Platelet Estimate Adequate Platelet Morphology Normal Anisocytosis 1+ Erythrocyte Sedimentation Rate 118 MM/HR (0-30) H Sodium Level 145 MMOL/L (136-145) Potassium Level 4.4 MMOL/L (3.5-5.1) Chloride Level 112 MMOL/L (98-107) H Carbon Dioxide Level 29 MMOL/L (21-32) Anion Gap 4 mmol/L (5-15) L Blood Urea Nitrogen 18 mg/dL (7-18) Creatinine 0.8 MG/DL (0.55-1.30) Estimat Glomerular Filtration Rate > 60 mL/min (>60) Glucose Level 141 MG/DL (74-106) H Calcium Level 8.8 MG/DL (8.5-10.1) Phosphorus Level 2.6 MG/DL (2.5-4.9) Magnesium Level 2.5 MG/DL (1.8-2.4) H Total Bilirubin 0.3 MG/DL (0.2-1.0) Aspartate Amino Transf (AST/SGOT) 15 U/L (15-37) Alanine Aminotransferase (ALT/SGPT) 31 U/L (12-78) Alkaline Phosphatase 116 U/L (46-116) C-Reactive Protein, Quantitative 18.5 mg/dL (0.00-0.90) H Total Protein 7.2 G/DL (6.4-8.2) Albumin 1.5 G/DL (3.4-5.0) L Globulin 5.7 g/dL Albumin/Globulin Ratio 0.3 (1.0-2.7) L Vancomycin Level Trough 16.4 ug/mL (5.0-12.0) H Intake and Output 03/16/20 03/17/20 19:00 07:00 Intake Total 240 ml 605 ml Output Total 450 ml Balance -210 ml 605 ml Free Water 60 ml IV Total 110 ml Tube Feeding 180 ml 495 ml Output Urine Total 450 ml Objective General: Responsive with Open eyes, Unable to F/U commands. HEENT: NCAT, sclera anicteric, PERRL, Neck: tracheostomy site intact. Lungs: Mechanical breath sounds, no Wheeze or Rales. Heart: Regular rate and rhythm, normal S1/S2, no murmurs. Abdomen: soft, nontender, nondistended. + BS, PEH site intact. Extremities: No Cyanosis , clubbing or edema. Neuro: limited secondary to patient status, able to move upper extremities, unable to move lower extremities. Skin: warm, no rash, pressure ulcer on lower extremities. Assessment/Plan Assessment/Plan 1. Left lower lobe pneumonia. 2. chronic Respiratory failure S/P tracheostomy. 3. Hypernatremia. 4. Renal failure. 5. Hypoxemia. 6. Tracheostomy dependence. 7. Chronic obstructive pulmonary disease. 8. Diabetes type 2. 9. Parkinson disease. 10. Gout. 11. Glaucoma. 12. Sacral decubitus ulcer stage IV. 13. History of intracranial hemorrhage. 14. Hydrocephalus. 15. MRSA bacteremia. 16. UTI=MDR acenitobacter TREATMENT: 1. Left lower lobe pneumonia/respiratory failure/sepsis. Pulmonary consultation =Dr. Patti Matta. ABX= vancomycin IV, Start Zosyn IV Infectious disease=Dr. Villegas We will follow recommendations of Infectious Disease. 2. Hypernatremia. Hypernatremia may be secondary to renal failure versus dehydration. Nephrology consultation =. 3. Renal failure nephrology consultation =Dr. Huntley. 4. Tracheostomy dependence. 5. Chronic obstructive pulmonary disease. 6. Diabetes type 2. NovoLog sliding scale has been instituted. 7. Parkinson disease. 8. Gout. Continue allopurinol as above. 9. Glaucoma. 10. Sacral decubitus ulcer stage IV. A general surgery consultation has been obtained with Dr. Chris Hunter. 11. History of intracranial hemorrhage. 12. Await DEBBIE; cardiology=Dr Alejandre Tolerated tube feeding @ 45 cc/hr CXR: (03/17/2020) 1. Unchanged tracheostomy. 2. Mildly more pronounced linear interstitial prominence could represent atypical infection or interstitial pulmonary edema in the proper clinical context. 3. Unchanged hyperinflation. 4. Unchanged mild retrocardiac atelectasis without or with consolidation. 5. Unchanged likely mild cardiomegaly. Jesus Lutz MD Mar 17, 2020 13:05
--- NOTE | 2020-03-17 13:25 | Nephrology Progress Note ---
Assessment/Plan Problem List: (1) Hypercalcemia (2) Hypernatremia (3) Sepsis (4) UTI (urinary tract infection) (5) Stage 4 decubitus ulcer (6) Acute on chronic respiratory failure (7) Chronic vegetative state (8) Severe protein-calorie malnutrition Assessment Azotemia and hypernatremia indicative of severe dehydration and free water deficit Acute on chronic respiratory failure, on mechanical ventilation Severe underlying anemia Sepsis Stage IV decubitus Idiopathic obstructive hydrocephalus, history of intracranial hemorrhage Diabetes mellitus Parkinson's disease, dementia Protein calorie malnutrition Plan March 17: Labs reviewed. Renal parameters stable. Continue to watch serum calcium. Continue per consultants. March 16: Labs reviewed. Serum calcium stable. Medication list reviewed. Abnormal electrolyte addressed. Continue current management. March 15: Labs reviewed. Serum calcium lowering. Abnormal electrolytes a ddressed. Continue per consultants. March 14: Labs reviewed. Status quo. Serum calcium lowering. Magnesium and potassium supplement ordered. Continue per current treatment plan. March 13: 1 dose of pamidronate 60 mg for high calcium IV ordered. Labs reviewed. Medication list reviewed. Electrolytes improving. Hemoglobin higher after transfusion. Nasal calcitonin initiated March 12: D5W at 75 cc an hour Monitor electrolytes Monitor hemoglobin hematocrit Gastric support Consider transfusion Continue per orders Parameters for blood pressure medication Antibiotics per ID Subjective ROS Limited/Unobtainable: Yes Objective Objective Last 24 Hour Vital Signs Date Time Temp Pulse Resp B/P (MAP) Pulse Ox O2 Delivery O2 Flow Rate FiO2 03/17/20 10:45 89 20 35 03/17/20 09:44 100 124/72 03/17/20 09:08 98 23 35 03/17/20 09:00 104 03/17/20 07:19 103 21 35 03/17/20 05:09 95 23 35 03/17/20 04:00 100 03/17/20 04:00 99.3 97 20 123/68 (86) 100 03/17/20 04:00 103 03/17/20 03:16 100 24 35 03/17/20 01:30 92 26 35 03/17/20 00:00 100 03/17/20 00:00 96 03/17/20 00:00 98.9 103 19 109/69 (82) 100 03/17/20 00:00 Mechanical Ventilator 03/16/20 23:30 96 22 35 03/16/20 21:21 95 25 35 03/16/20 20:00 98.8 94 20 112/76 (88) 100 03/16/20 20:00 Mechanical Ventilator 03/16/20 20:00 100 03/16/20 20:00 92 03/16/20 19:30 97 24 35 03/16/20 17:00 85 22 35 03/16/20 16:00 98.8 91 18 111/66 (81) 100 03/16/20 16:00 93 03/16/20 15:00 86 21 35 03/16/20 13:30 104 24 35 Intake and Output 03/16/20 03/17/20 19:00 07:00 Intake Total 240 ml 605 ml Output Total 450 ml Balance -210 ml 605 ml Free Water 60 ml IV Total 110 ml Tube Feeding 180 ml 495 ml Output Urine Total 450 ml Current Medications Medications (Trade) Dose Ordered Sig/Zaki Route PRN Reason Start Time Stop Time Status Last Admin Dose Admin Acetaminophen (Tylenol) 650 mg Q6H PRN GT Temp >100.5, Mild Pain 03/11/20 06:30 04/10/20 06:29 03/14/20 01:23 Acetaminophen/ Codeine Phosphate (Tylenol #3) 1 tab Q6H PRN GT For Mod-Severe Pain 03/11/20 06:30 03/18/20 06:29 03/15/20 01:00 Amlodipine Besylate (Norvasc) 10 mg DAILY GT 03/11/20 09:00 04/10/20 08:59 03/17/20 09:44 Aspirin (ASA) 81 mg DAILY GT 03/11/20 09:00 04/25/20 08:59 03/17/20 09:44 Calcitonin [place] (Miacalcin) 1 sprays DAILY NASAL 03/13/20 11:00 06/11/20 10:59 03/17/20 09:42 Dextrose (Dextrose 50%) 25 ml Q30M PRN IV Hypoglycemia 03/13/20 23:30 06/11/20 23:29 Dextrose (Dextrose 50%) 50 ml Q30M PRN IV Hypoglycemia 03/13/20 23:30 06/11/20 23:29 Diphenhydramine HCl (Benadryl) 25 mg Q8H PRN ORAL Itching 03/14/20 15:00 04/13/20 14:59 03/14/20 15:50 Famotidine (Pepcid) 40 mg BID GT 03/12/20 18:00 06/09/20 08:59 03/17/20 09:43 Heparin Sodium (Porcine) (Heparin 5000 units/ml) 5,000 units EVERY 12 HOURS SUBQ 03/11/20 09:00 04/25/20 08:59 03/13/20 20:49 Insulin Aspart (NovoLOG) Q6HR SUBQ 03/14/20 00:00 06/12/20 00:00 03/17/20 13:09 Ondansetron HCl (Zofran) 4 mg Q4H PRN IVP Nausea & Vomiting 03/11/20 06:30 04/10/20 06:29 Piperacillin Sod/ Tazobactam Sod 3.375 gm/Sodium Chloride 110 ml @ 27.5 mls/hr EVERY 8 HOURS IVPB 03/17/20 09:00 03/22/20 08:59 03/17/20 14:49 Vancomycin HCl (Vanco pharmacy to dose) 1 ea DAILY PRN MISC Per rx protocol 03/11/20 06:30 04/10/20 06:29 Vancomycin HCl 500 mg/Sodium Chloride 110 ml @ 110 mls/hr Q12HR@0600,1800 IVPB 03/15/20 18:00 03/20/20 17:59 03/17/20 06:00 Zinc Sulfate (Zinc Sulfate) 220 mg DAILY ORAL 03/13/20 09:00 03/23/20 08:59 03/17/20 09:43 Laboratory Tests 03/17/20 01:12: POC Whole Blood Glucose 152H 03/17/20 03:50: White Blood Count 22.2*H, Red Blood Count 3.51L, Hemoglobin 9.8L, Hematocrit 32.3L, Mean Corpuscular Volume 92, Mean Corpuscular Hemoglobin 28.0, Mean Corpuscular Hemoglobin Concent 30.3L, Red Cell Distribution Width 17.4H, Platelet Count 573H, Mean Platelet Volume 8.0, Neutrophils (%) (Auto) , Lymphocytes (%) (Auto) , Monocytes (%) (Auto) , Eosinophils (%) (Auto) , Basophils (%) (Auto) , Differential Total Cells Counted 100, Neutrophils % (Manual) 81H, Lymphocytes % (Manual) 4L, Monocytes % (Manual) 5, Eosinophils % (Manual) 9H, Basophils % (Manual) 1, Band Neutrophils 0, Platelet Estimate Adequate, Platelet Morphology Normal, Anisocytosis 1+, Erythrocyte Sedimentation Rate 118H, Sodium Level 145, Potassium Level 4.4, Chloride Level 112H, Carbon Dioxide Level 29, Anion Gap 4L, Blood Urea Nitrogen 18, Creatinine 0.8, Estimat Glomerular Filtration Rate > 60, Glucose Level 141H, Calcium Level 8.8, Phosphorus Level 2.6, Magnesium Level 2.5H, Total Bilirubin 0.3, Aspartate Amino Transf (AST/SGOT) 15, Alanine Aminotransferase (ALT/SGPT) 31, Alkaline Phosph atase 116, C-Reactive Protein, Quantitative 18.5H, Total Protein 7.2, Albumin 1.5L, Globulin 5.7, Albumin/Globulin Ratio 0.3L, Vancomycin Level Trough 16.4H 03/17/20 06:50: POC Whole Blood Glucose 140H 03/17/20 13:06: POC Whole Blood Glucose 173H Height (Feet): 5 Height (Inches): 5.00 Weight (Pounds): 147 General Appearance: no apparent distress EENT: other - Trach to vent Cardiovascular: tachycardia Respiratory/Chest: decreased breath sounds Abdomen: soft Mathew Huntley MD Mar 17, 2020 13:25
[2020-03-17 16:00] VITALS: BP 124/75
--- NOTE | 2020-03-17 16:04 | NUR ---
INSURANCE CLINICALS/ REVIEWS FAXED TO [facility] (03/16-03/17) FX [id number] PH [phone]
--- NOTE | 2020-03-17 16:26 | Surgery Progress Note ---
Surgery Progress Note Subjective Additional Comments no acute events labs noted exam stable Objective Last 24 Hour Vital Signs Date Time Temp Pulse Resp B/P (MAP) Pulse Ox O2 Delivery O2 Flow Rate FiO2 03/17/20 12:46 94 33 35 03/17/20 12:00 97.9 94 20 112/68 (83) 100 03/17/20 10:45 89 20 35 03/17/20 09:44 100 124/72 03/17/20 09:08 98 23 35 03/17/20 09:00 104 03/17/20 08:00 98.6 105 20 124/72 (89) 99 03/17/20 07:19 103 21 35 03/17/20 05:09 95 23 35 03/17/20 04:00 100 03/17/20 04:00 99.3 97 20 123/68 (86) 100 03/17/20 04:00 103 03/17/20 03:16 100 24 35 03/17/20 01:30 92 26 35 03/17/20 00:00 100 03/17/20 00:00 96 03/17/20 00:00 98.9 103 19 109/69 (82) 100 03/17/20 00:00 Mechanical Ventilator 03/16/20 23:30 96 22 35 03/16/20 21:21 95 25 35 03/16/20 20:00 98.8 94 20 112/76 (88) 100 03/16/20 20:00 Mechanical Ventilator 03/16/20 20:00 100 03/16/20 20:00 92 03/16/20 19:30 97 24 35 03/16/20 17:00 85 22 35 I&O Intake and Output 03/16/20 03/17/20 19:00 07:00 Intake Total 240 ml 605 ml Output Total 450 ml Balance -210 ml 605 ml Free Water 60 ml IV Total 110 ml Tube Feeding 180 ml 495 ml Output Urine Total 450 ml Dressing: saturated Cardiovascular: RSR Respiratory: decreased breath sounds Abdomen: non-tender, present bowel sounds Extremities: no tenderness, no cyanosis Laboratory Tests Test 03/17/20 01:12 03/17/20 03:50 03/17/20 06:50 03/17/20 13:06 POC Whole Blood Glucose 152 MG/DL (74-106) H 140 MG/DL (74-106) H 173 MG/DL (74-106) H White Blood Count 22.2 K/UL (4.8-10.8) *H Red Blood Count 3.51 M/UL (4.20-5.40) L Hemoglobin 9.8 G/DL (12.0-16.0) L Hematocrit 32.3 % (37.0-47.0) L Mean Corpuscular Volume 92 FL (80-99) Mean Corpuscular Hemoglobin 28.0 PG (27.0-31.0) Mean Corpuscular Hemoglobin Concent 30.3 G/DL (32.0-36.0) L Red Cell Distribution Width 17.4 % (11.6-14.8) H Platelet Count 573 K/UL (150-450) H Mean Platelet Volume 8.0 FL (6.5-10.1) Neutrophils (%) (Auto) % (45.0-75.0) Lymphocytes (%) (Auto) % (20.0-45.0) Monocytes (%) (Auto) % (1.0-10.0) Eosinophils (%) (Auto) % (0.0-3.0) Basophils (%) (Auto) % (0.0-2.0) Differential Total Cells Counted 100 Neutrophils % (Manual) 81 % (45-75) H Lymphocytes % (Manual) 4 % (20-45) L Monocytes % (Manual) 5 % (1-10) Eosinophils % (Manual) 9 % (0-3) H Basophils % (Manual) 1 % (0-2) Band Neutrophils 0 % (0-8) Platelet Estimate Adequate Platelet Morphology Normal Anisocytosis 1+ Erythrocyte Sedimentation Rate 118 MM/HR (0-30) H Sodium Level 145 MMOL/L (136-145) Potassium Level 4.4 MMOL/L (3.5-5.1) Chloride Level 112 MMOL/L (98-107) H Carbon Dioxide Level 29 MMOL/L (21-32) Anion Gap 4 mmol/L (5-15) L Blood Urea Nitrogen 18 mg/dL (7-18) Creatinine 0.8 MG/DL (0.55-1.30) Estimat Glomerular Filtration Rate > 60 mL/min (>60) Glucose Level 141 MG/DL (74-106) H Calcium Level 8.8 MG/DL (8.5-10.1) Phosphorus Level 2.6 MG/DL (2.5-4.9) Magnesium Level 2.5 MG/DL (1.8-2.4) H Total Bilirubin 0.3 MG/DL (0.2-1.0) Aspartate Amino Transf (AST/SGOT) 15 U/L (15-37) Alanine Aminotransferase (ALT/SGPT) 31 U/L (12-78) Alkaline Phosphatase 116 U/L (46-116) C-Reactive Protein, Quantitative 18.5 mg/dL (0.00-0.90) H Total Protein 7.2 G/DL (6.4-8.2) Albumin 1.5 G/DL (3.4-5.0) L Globulin 5.7 g/dL Albumin/Globulin Ratio 0.3 (1.0-2.7) L Vancomycin Level Trough 16.4 ug/mL (5.0-12.0) H Plan Problems: (1) Hypernatremia (2) Sepsis (3) UTI (urinary tract infection) (4) Stage 4 decubitus ulcer Assessment & Plan: Stage 4 ulcer on admission. macerated edges. serous drainage. foul odor. no active infection Tx plan: wash with NS. apply therahoney gauze and dressing daily change prn saturation CT noted. osteo in sacrum cont abx osteo chronic will monitor and asses if debridement needed ABDOMEN: Liver: Unremarkable. No mass. Gallbladder and bile ducts: Unremarkable. No calcified stones. No ductal dilation. Pancreas: Unremarkable. No mass. No ductal dilation. Spleen: Spleen is small. Adrenals: Unremarkable. No mass. Kidneys and ureters: Renal cysts and subcentimeter low-attenuation foci, too small to characterize. No hydronephrosis. Stomach and bowel: Unremarkable. No obstruction. No mucosal thickening. PELVIS: Appendix: No findings to suggest acute appendicitis. Bladder: Bladder wall thickening. Foci of gas in the bladder. Correlate for recent instrumentation versus cystitis. Reproductive: Unremarkable as visualized. ABDOMEN and PELVIS: Intraperitoneal space: Unremarkable. No free air. No significant fluid collection. Bones/joints: Sacrococcygeal decubitus ulcers with associated osteomyelitis. There is some underlying bone thinning and sclerosis in the distal sacrum and coccyx underlying the decubitus ulcers. No acute fracture. No dislocation. Soft tissues: Unremarkable. Vasculature: Moderate plaque abdominal aorta and branches. No abdominal aortic aneurysm. Lymph nodes: Unremarkable. No enlarged lymph nodes. Tubes, lines and devices: Gastrostomy tube within the gastric body. IMPRESSION: 1. Sacrococcygeal decubitus ulcers with associated osteomyelitis. 2. Small left pleural effusion. Left lower lobe atelectasis. 3. Bladder wall thickening. Foci of gas in the bladder. Correlate for recent instrumentation versus cystitis. 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 CURRENT TF:Glucerna 1.2 @ 45ml/hr x 24 hrs ENTERAL NUTRITION RECOMMENDATIONS: Glucerna 1.2 @ 60ml/hr x 24 hrs to provide 1440ml, 1728kcal, 86g prot, 1159ml free water * Increase goal rate to 60ml/hr x 24 hrs to meet 100% est kcal/prot needs -> 1.9g prot/kg * HOB over 30 degrees/ water flush per MD * add Shen BID ADDITIONAL RECOMMENDATIONS: * Per SNF: HT=64" and YW=280# vs EMR wt of 147lbs -> rec daily calibrated bedscale wt * Wound healing: TF rec @ goal will provide 100% RDI Vit C 500mg BID, ZnSO4 220gm QD x 10 days Shen BID via PEG * Monitor BGs, consider NISS: h/o DM * Monitor lytes, replete as needed (5) Chronic respiratory failure requiring continuous mechanical ventilation through tracheostomy (6) History of intracranial hemorrhage (7) Idiopathic obstructive hydrocephalus (8) Gout (9) Diabetes mellitus (10) Parkinson's disease dementia (11) Acute on chronic respiratory failure (12) Chronic vegetative state (13) Severe protein-calorie malnutrition Assessment & Plan: DAILY ESTIMATED NEEDS: Needs based on Advanced wound, critical care, underweight, [employer]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 CURRENT TF:Glucerna 1.2 @ 45ml/hr x 24 hrs ENTERAL NUTRITION RECOMMENDATIONS: Glucerna 1.2 @ 60ml/hr x 24 hrs to provide 1440ml, 1728kcal, 86g prot, 1159ml free water * Increase goal rate to 60ml/hr x 24 hrs to meet 100% est kcal/prot needs -> 1.9g prot/kg * HOB over 30 degrees/ water flush per MD * add Shen BID ADDITIONAL RECOMMENDATIONS: * Per SNF: HT=64" and OG=601# vs EMR wt of 147lbs -> rec daily calibrated bedscale wt * Wound healing: TF rec @ goal will provide 100% RDI add Vit C 500mg BID, continue ZnSO4 220gm QD x 10 days Shen BID via PEG * Monitor BGs, consider NISS: h/o DM -> NISS now added * Add probiotics for diarrhea Chris Hunter Mar 17, 2020 16:26
--- NOTE | 2020-03-17 18:22 | Diagnostic Imaging Report ---
EXAM: XR Chest, 1 View CLINICAL HISTORY: DYSPNEA TECHNIQUE: Frontal view of the chest. COMPARISON: 03/12/2020 FINDINGS: Lungs: Mildly more pronounced linear interstitial prominence could represent atypical infection or interstitial pulmonary edema in the proper clinical context. Unchanged hyperinflation. Unchanged mild retrocardiac atelectasis without or with consolidation. Pleural space: Unremarkable. No pneumothorax. Heart: Unchanged likely mild cardiomegaly. Mediastinum: Unremarkable. Bones/joints: No acute abnormality Tubes, lines and devices: Unchanged tracheostomy. IMPRESSION: 1. Unchanged tracheostomy. 2. Mildly more pronounced linear interstitial prominence could represent atypical infection or interstitial pulmonary edema in the proper clinical context. 3. Unchanged hyperinflation. 4. Unchanged mild retrocardiac atelectasis without or with consolidation. 5. Unchanged likely mild cardiomegaly.
--- NOTE | 2020-03-17 19:25 | NUR ---
NURSE NOTES: Received report from Vlad Phillips, pt. in bed awake, with eyes open, appears to be non-verbal, no signs or symptoms of acute cardiac or respiratory distress noted, bed alarm on, side rails up x's 3 and safety brakes engaged, call light within easy reach, pt. has G tube running Glucerna 1.2 at 45cc/hr - no residual noted, Suprapubic catheter intact and draining to gravity, repositioned and turned pt., RT. AC 20G IV intact and patent- SL, aspiration precautions observed- HOB elevated, skin precautions observed, will continue to monitor pt. and with plan of care. per endorsement IV is infiltrated- will d/c Addendum: 03/17/20 at 2201 by RUPAL TRUJILLO RN RN Fio2 is at 75%. Addendum: 03/17/20 at 2202 by RUPAL TRUJILLO RN RN pt. appears to be tolerating current vent settings well- AC 16, TV 400, Fio2 @75% and peep 5.
[2020-03-17 20:00] VITALS: BP 130/88
--- NOTE | 2020-03-17 20:12 | NUR ---
NURSE HAND-OFF REPORT: Important Events on Shift:NO working Iv, both IV's came out when moving pt. all wound dressing change done. supra pubid cath is not leaking anymore. FIO2 increased to 75 Patient Status: full code Diet: gtube 1.2 45ml/hr Pending Orders: Pending Results/Labs: Pending MD notification: Latest Vital Signs: Temperature 98.4 , Pulse 101 , B/P 124 /75 , Respiratory Rate 25 , O2 SAT 97 , Mechanical Ventilator, O2 Flow Rate . Vital Sign Comment: EKG Rhythm: Sinus Tachycardia Rhythm change?: N MD Notified?: N - MD Response: Latest Ochoa Fall Score: 35 Fall Risk: Medium Risk Safety Measures: Call light Within Reach, Bed Alarm Zone 1, Side Rails Side Rails x3, Bed position Low and Locked. Fall Precautions: y Yellow Socks y Door Sign y Patient Fall Education Report given to Torrey/ADILENE
--- NOTE | 2020-03-17 20:37 | NUR ---
NURSE NOTES: per doctor MILTON Matta Heparin.
[2020-03-17] MEDS: Tylenol #3 tab (300mg/30mg) GT PRN (20:43)
[2020-03-18] VITALS: BP 127/73
--- NOTE | 2020-03-18 | NUR ---
NURSE NOTES: bed bath given- oral care provided, repositioned and turned pt.- pt. appears to be tolerating current vent settings well- sating at 100%- will continue to monitor pt. and with plan of care.
[2020-03-18 04:00] VITALS: BP 120/69
[2020-03-18 04:50] LABS: HEMATOCRIT 31.4 % (37.0-47.0); HEMOGLOBIN 9.5 G/DL (12.0-16.0); MEAN CORPUSCULAR VOLUME 93 FL (80-99); PLATELET COUNT 602 K/UL (150-450); RED BLOOD COUNT 3.39 M/UL (4.20-5.40); RED CELL DISTRIBUTION WIDTH 17.8 % (11.6-14.8); WHITE BLOOD COUNT 18.8 K/UL (4.8-10.8)
[2020-03-18] MEDS: Piperacillin/Tazobactam 3.375 GM in NS 110 ML IVPB SCH ×3 (05:02→21:57)
[2020-03-18] MEDS: NovoLOG Insulin Flexpen SUBQ SCH ×3 (05:03→17:20)
[2020-03-18 05:35] LABS: ALANINE AMINOTRANSFERASE 25 U/L (12-78); ALBUMIN 1.5 G/DL (3.4-5.0); ALBUMIN/GLOBULIN RATIO 0.3 (1.0-2.7); ALKALINE PHOSPHATASE 111 U/L (46-116); ANION GAP 6 mmol/L (5-15); ASPARTATE AMINO TRANSFERASE 15 U/L (15-37); BILIRUBIN,TOTAL 0.2 MG/DL (0.2-1.0); BLOOD UREA NITROGEN 18 mg/dL (7-18); CALCIUM 8.6 MG/DL (8.5-10.1); CARBON DIOXIDE 28 MMOL/L (21-32); CHLORIDE 116 MMOL/L (98-107); PHOSPHORUS 2.8 MG/DL (2.5-4.9); POTASSIUM 4.8 MMOL/L (3.5-5.1); SODIUM 150 MMOL/L (136-145)
[2020-03-18 05:42] LABS: CREATININE 0.9 MG/DL (0.55-1.30)
--- NOTE | 2020-03-18 07:10 | NUR ---
NURSE HAND-OFF REPORT: Important Events on Shift:none Patient Status: fair Diet: Glucerna 1.2 Pending Orders: Pending Results/Labs: Pending MD notification: Latest Vital Signs: Temperature 98.1 , Pulse 94 , B/P 120 /69 , Respiratory Rate 24 , O2 SAT 100 , Mechanical Ventilator, O2 Flow Rate . Vital Sign Comment: EKG Rhythm: Sinus Rhythm Rhythm change?: N MD Notified?: N - MD Response: Latest Ochoa Fall Score: 35 Fall Risk: Medium Risk Safety Measures: Call light Within Reach, Bed Alarm Zone 1, Side Rails Side Rails x3, Bed position Low and Locked. Fall Precautions: Yellow Socks Door Sign Patient Fall Education Report given to lVad Scott- aware to f/u on any abnormal am labs- aware Heparin was d/c- due to (+) OB stool (DR. Matta).
--- NOTE | 2020-03-18 07:48 | NUR ---
NURSE NOTES:Handoff received from ADILENE Sanchez. Patient received resting in bed, no acute signs of distress noted. Patient is on trach tolerating well with settings: AC16, TV400,FI02 75% and PEEP 5. Patient is on cardiac cath rn with HR of 97 SR. patient is on isolation precautions for MRSA and VRE, aspiration and fall risk precautions with bed in the low and locked position, call light bedside. G tube patent and running Glucerna 1.2@40ML/HR. Suprapubic catheter patient and draining to gravity. Patient is on p200 mattress for sacral stage 4 wound. IV sites are both clean dry and intact, saline locked. will follow plan of care.
[2020-03-18 08:00] VITALS: BP 119/61
--- NOTE | 2020-03-18 08:10 | Infectious Diseases Prog Note ---
Assessment/Plan 74yo F with: Febrile Leukocytosis Sepsis Left lower lung infiltrate Acute on chronic resp failure SP trach MRSA bacteremia 03/11 BCx +MRSA Resp cx +PsA (S-Zosyn, I-merissa and cefepime) UCx 30-40k ACB (colonizer) COVID rapid Ag neg CXR: Midline tracheostomy. Small left pleural effusion. Hyperinflation with flattening of the diaphragms and emphysema, consistent with COPD. No lobar infiltrate. 03/12 BCx NTD 03/13 C.dif neg 03/13 BCx NTD 03/14 BCx NTD 03/14 CT A/P: 1. Sacrococcygeal decubitus ulcers with associated osteomyelitis. 2. Small left pleural effusion. Left lower lobe atelectasis. 3. Bladder wall thickening. Foci of gas in the bladder. Correlate for recent instrumentation versus cystitis. 03/14 TTE: No vegetations, thickened valves 03/17 CXR: 1. Unchanged tracheostomy. 2. Mildly more pronounced linear interstitial prominence could represent atypical infection or interstitial pulmonary edema in the proper clinical context. 3. Unchanged hyperinflation. 4. Unchanged mild retrocardiac atelectasis without or with consolidation. MRSA nares positive VDRF S/p trach/PEG Bed bound Sacral decub ulceration w/ underlying OM Plan: Cont Zosyn #2 for broader coverage given ongoing fever, increasing WBC, ?pna Cont vancomycin #8 for MRSA bacteremia, duration TBD Recommend DEBBIE given MRSA bacteremia of community onset without clear source, ordered by Cards F/u repeat BCx to ensure clearance of bacteremia Trend WBC 03/14 SP cefepime #4 Monitor CBC/CMP Monitor temp curve, hemodynamics Monitor resp status D/w RN Thank you for this consult. [facility] will continue to follow. Subjective Allergies: Coded Allergies: No Known Allergies (Unverified , 03/11/20) AF WBC improving to 18 NAD on vent, FiO2 up to 75%, per RN no other changes and doesn't know why O2 is higher Still hasn't had DEBBIE Objective Last 24 Hour Vital Signs Date Time Temp Pulse Resp B/P (MAP) Pulse Ox O2 Delivery O2 Flow Rate FiO2 03/18/20 07:06 94 24 75 03/18/20 04:00 98.1 88 20 120/69 (86) 100 03/18/20 04:00 75 03/18/20 03:35 85 03/18/20 02:30 97 19 75 03/18/20 00:00 75 03/18/20 00:00 Mechanical Ventilator 03/18/20 00:00 98.0 92 20 127/73 (91) 100 03/17/20 23:37 89 03/17/20 22:35 104 25 75 03/17/20 21:13 98.4 03/17/20 20:00 98.2 99 20 130/88 (102) 100 03/17/20 20:00 93 03/17/20 20:00 75 03/17/20 20:00 Mechanical Ventilator 03/17/20 19:16 101 25 35 03/17/20 16:52 109 17 35 03/17/20 16:00 98.4 102 20 124/75 (91) 97 03/17/20 16:00 103 03/17/20 15:06 104 18 35 03/17/20 12:46 94 33 35 03/17/20 12:00 97.9 94 20 112/68 (83) 100 03/17/20 12:00 88 03/17/20 10:45 89 20 35 03/17/20 09:44 100 124/72 03/17/20 09:08 98 23 35 03/17/20 09:00 104 Height (Feet): 5 Height (Inches): 5.00 Weight (Pounds): 147 Gen: NAD in bed HEENT: NCAT, trach CV: RRR Pulm: CTAB Abd: Soft, NTND, +PEG +SPC Ext: No c/c/e Skin: Stage 4 sacral decub ulceration, clean Neuro: Awake, not interactive Laboratory Tests Test 03/17/20 13:06 03/17/20 18:46 03/17/20 23:53 03/18/20 03:50 POC Whole Blood Glucose 173 MG/DL (74-106) H Pending 110 MG/DL (74-106) H White Blood Count 18.8 K/UL (4.8-10.8) H Red Blood Count 3.39 M/UL (4.20-5.40) L Hemoglobin 9.5 G/DL (12.0-16.0) L Hematocrit 31.4 % (37.0-47.0) L Mean Corpuscular Volume 93 FL (80-99) Mean Corpuscular Hemoglobin 28.0 PG (27.0-31.0) Mean Corpuscular Hemoglobin Concent 30.2 G/DL (32.0-36.0) L Red Cell Distribution Width 17.8 % (11.6-14.8) H Platelet Count 602 K/UL (150-450) H Mean Platelet Volume 7.9 FL (6.5-10.1) Neutrophils (%) (Auto) % (45.0-75.0) Lymphocytes (%) (Auto) % (20.0-45.0) Monocytes (%) (Auto) % (1.0-10.0) Eosinophils (%) (Auto) % (0.0-3.0) Basophils (%) (Auto) % (0.0-2.0) Neutrophils % (Manual) Pending Lymphocytes % (Manual) Pending Platelet Estimate Pending Platelet Morphology Pending Erythrocyte Sedimentation Rate 120 MM/HR (0-30) H Sodium Level 150 MMOL/L (136-145) H Potassium Level 4.8 MMOL/L (3.5-5.1) Chloride Level 116 MMOL/L (98-107) H Carbon Dioxide Level 28 MMOL/L (21-32) Anion Gap 6 mmol/L (5-15) Blood Urea Nitrogen 18 mg/dL (7-18) Creatinine 0.9 MG/DL (0.55-1.30) Estimat Glomerular Filtration Rate > 60 mL/min (>60) Glucose Level 172 MG/DL (74-106) H Calcium Level 8.6 MG/DL (8.5-10.1) Phosphorus Level 2.8 MG/DL (2.5-4.9) Magnesium Level 2.7 MG/DL (1.8-2.4) H Total Bilirubin 0.2 MG/DL (0.2-1.0) Aspartate Amino Transf (AST/SGOT) 15 U/L (15-37) Alanine Aminotransferase (ALT/SGPT) 25 U/L (12-78) Alkaline Phosphatase 111 U/L (46-116) C-Reactive Protein, Quantitative 17.5 mg/dL (0.00-0.90) H Total Protein 7.1 G/DL (6.4-8.2) Albumin 1.5 G/DL (3.4-5.0) L Globulin 5.6 g/dL Albumin/Globulin Ratio 0.3 (1.0-2.7) L Test 03/18/20 04:55 POC Whole Blood Glucose 155 MG/DL (74-106) H Current Medications Medications (Trade) Dose Ordered Sig/Zaki Route PRN Reason Start Time Stop Time Status Last Admin Dose Admin Acetaminophen (Tylenol) 650 mg Q6H PRN GT Temp >100.5, Mild Pain 03/11/20 06:30 04/10/20 06:29 03/14/20 01:23 Amlodipine Besylate (Norvasc) 10 mg DAILY GT 03/11/20 09:00 04/10/20 08:59 03/17/20 09:44 Aspirin (ASA) 81 mg DAILY GT 03/11/20 09:00 04/25/20 08:59 03/17/20 09:44 Calcitonin [place] (Miacalcin) 1 sprays DAILY NASAL 03/13/20 11:00 06/11/20 10:59 03/17/20 09:42 Dextrose (Dextrose 50%) 25 ml Q30M PRN IV Hypoglycemia 03/13/20 23:30 06/11/20 23:29 Dextrose (Dextrose 50%) 50 ml Q30M PRN IV Hypoglycemia 03/13/20 23:30 06/11/20 23:29 Diphenhydramine HCl (Benadryl) 25 mg Q8H PRN ORAL Itching 03/14/20 15:00 04/13/20 14:59 03/14/20 15:50 Famotidine (Pepcid) 40 mg BID GT 03/12/20 18:00 06/09/20 08:59 03/17/20 19:02 Insulin Aspart (NovoLOG) Q6HR SUBQ 03/14/20 00:00 06/12/20 00:00 03/18/20 05:03 Ondansetron HCl (Zofran) 4 mg Q4H PRN IVP Nausea & Vomiting 03/11/20 06:30 04/10/20 06:29 Piperacillin Sod/ Tazobactam Sod 3.375 gm/Sodium Chloride 110 ml @ 220 mls/hr EVERY 8 HOURS IVPB 03/17/20 22:00 03/24/20 21:59 03/18/20 05:02 Vancomycin HCl (Vanco pharmacy to dose) 1 ea DAILY PRN MISC Per rx protocol 03/11/20 06:30 04/10/20 06:29 Vancomycin HCl 500 mg/Sodium Chloride 110 ml @ 110 mls/hr Q12H IVPB 03/17/20 20:00 03/22/20 19:59 03/17/20 20:05 Zinc Sulfate (Zinc Sulfate) 220 mg DAILY ORAL 03/13/20 09:00 03/23/20 08:59 03/17/20 09:43 Shirley Villegas M.D. Mar 18, 2020 08:10
[2020-03-18] MEDS: Vancomycin 500 MG in NS 110 ML IVPB SCH ×2 (08:34→21:14)
[2020-03-18] MEDS: Acetaminophen 650mg/20.3ml GT PRN ×2 (08:35→22:08)
[2020-03-18] MEDS: Aspirin Baby 81mg GT SCH (08:35)
[2020-03-18] MEDS: Zinc Sulfate 220mg ORAL SCH (08:35)
--- NOTE | 2020-03-18 09:06 | NUR ---
CASE MANAGEMENT:REVIEW 03/18/20 SI: SEPSIS. MRSA SEPSIS TRACH/VENT/GT DEPENDENT 101.7 99 19 119/61 99% ON VENT SUPPORT 75% FIO2 WBC+18.8 NA+150 IS: IV ZOSYN Q8HRS IV VANCOMYCIN Q12 ZINC GT QD PEPCID GT BID NORVASC GT QD HEPARIN SQ Q12 ASA PO QD : STEP DOWN UNIT DCP: FROM [place] PLAN: DEBBIE PENDING
--- NOTE | 2020-03-18 09:50 | NUR ---
NURSE NOTES:Dietary rounded on patient and recommended increasing G-tube formula rate from 45ML/HR to 60ML/HR to help with wound healing and to add Juvern BID. Contacted Dr Hunter and informed him of Recommendation.
--- NOTE | 2020-03-18 10:20 | Nephrology Progress Note ---
Assessment/Plan Problem List: (1) Hypercalcemia (2) Hypernatremia (3) Sepsis (4) UTI (urinary tract infection) (5) Stage 4 decubitus ulcer (6) Acute on chronic respiratory failure (7) Chronic vegetative state (8) Severe protein-calorie malnutrition Assessment Azotemia and hypernatremia indicative of severe dehydration and free water deficit Acute on chronic respiratory failure, on mechanical ventilation Severe underlying anemia Sepsis Stage IV decubitus Idiopathic obstructive hydrocephalus, history of intracranial hemorrhage Diabetes mellitus Parkinson's disease, dementia Protein calorie malnutrition Plan March 18: Labs reviewed. Serum sodium 150. 1 L of D5W IV ordered. Serum calcium stable. Continue as is. March 17: Labs reviewed. Renal parameters stable. Continue to watch serum calcium. Continue per consultants. March 16: Labs reviewed. Serum calcium stable. Medication list reviewed. Abnormal electrolyte addressed. Continue current management. March 15: Labs reviewed. Serum calcium lowering. Abnormal electrolytes addressed. Continue per consultants. March 14: Labs reviewed. Status quo. Serum calcium lowering. Magnesium and potassium supplement ordered. Continue per current treatment plan. March 13: 1 dose of pamidronate 60 mg for high calcium IV ordered. Labs reviewed. Medication list reviewed. Electrolytes improving. Hemoglobin higher after transfusion. Nasal calcitonin initiated March 12: D5W at 75 cc an hour Monitor electrolytes Monitor hemoglobin hematocrit Gastric support Consider transfusion Continue per orders Parameters for blood pressure medication Antibiotics per ID Subjective ROS Limited/Unobtainable: Yes Objective Objective Last 24 Hour Vital Signs Date Time Temp Pulse Resp B/P (MAP) Pulse Ox O2 Delivery O2 Flow Rate FiO2 03/18/20 10:06 99.1 03/18/20 08:35 99 119/61 03/18/20 08:00 Mechanical Ventilator 03/18/20 08:00 75 03/18/20 08:00 101.7 99 19 119/61 (80) 99 03/18/20 07:06 94 24 75 03/18/20 04:00 98.1 88 20 120/69 (86) 100 03/18/20 04:00 75 03/18/20 03:35 85 03/18/20 02:30 97 19 75 03/18/20 00:00 75 03/18/20 00:00 Mechanical Ventilator 03/18/20 00:00 98.0 92 20 127/73 (91) 100 03/17/20 23:37 89 03/17/20 22:35 104 25 75 03/17/20 21:13 98.4 03/17/20 20:00 98.2 99 20 130/88 (102) 100 03/17/20 20:00 93 03/17/20 20:00 75 03/17/20 20:00 Mechanical Ventilator 03/17/20 19:16 101 25 35 03/17/20 16:52 109 17 35 03/17/20 16:00 98.4 102 20 124/75 (91) 97 03/17/20 16:00 103 03/17/20 15:06 104 18 35 03/17/20 12:46 94 33 35 03/17/20 12:00 97.9 94 20 112/68 (83) 100 03/17/20 12:00 88 03/17/20 10:45 89 20 35 Intake and Output 03/17/20 03/18/20 19:00 07:00 Intake Total 90 ml 1030 ml Output Total 550 ml Balance 90 ml 480 ml Free Water 50 ml IV Total 440 ml Tube Feeding 90 ml 540 ml Output Urine Total 550 ml # Bowel Movements 3 Current Medications Medications (Trade) Dose Ordered Sig/Zaki Route PRN Reason Start Time Stop Time Status Last Admin Dose Admin Acetaminophen (Tylenol) 650 mg Q6H PRN GT Temp >100.5, Mild Pain 03/11/20 06:30 04/10/20 06:29 03/18/20 08:35 Amlodipine Besylate (Norvasc) 10 mg DAILY GT 03/11/20 09:00 04/10/20 08:59 03/18/20 08:35 Aspirin (ASA) 81 mg DAILY GT 03/11/20 09:00 04/25/20 08:59 03/18/20 08:35 Calcitonin [place] (Miacalcin) 1 sprays DAILY NASAL 03/13/20 11:00 06/11/20 10:59 03/18/20 08:36 Dextrose (Dextrose 50%) 25 ml Q30M PRN IV Hypoglycemia 03/13/20 23:30 06/11/20 23:29 Dextrose (Dextrose 50%) 50 ml Q30M PRN IV Hypoglycemia 03/13/20 23:30 06/11/20 23:29 Diphenhydramine HCl (Benadryl) 25 mg Q8H PRN ORAL Itching 03/14/20 15:00 04/13/20 14:59 03/14/20 15:50 Famotidine (Pepcid) 40 mg BID GT 03/12/20 18:00 06/09/20 08:59 03/18/20 08:35 Insulin Aspart (NovoLOG) Q6HR SUBQ 03/14/20 00:00 06/12/20 00:00 03/18/20 05:03 Ondansetron HCl (Zofran) 4 mg Q4H PRN IVP Nausea & Vomiting 03/11/20 06:30 04/10/20 06:29 Piperacillin Sod/ Tazobactam Sod 3.375 gm/Sodium Chloride 110 ml @ 27.5 mls/hr EVERY 8 HOURS IVPB 03/17/20 22:00 03/24/20 21:59 03/18/20 05:02 Vancomycin HCl (Vanco pharmacy to dose) 1 ea DAILY PRN MISC Per rx protocol 03/11/20 06:30 04/10/20 06:29 Vancomycin HCl 500 mg/Sodium Chloride 110 ml @ 110 mls/hr Q12H IVPB 03/17/20 20:00 03/22/20 19:59 03/18/20 08:34 Zinc Sulfate (Zinc Sulfate) 220 mg DAILY ORAL 03/13/20 09:00 03/23/20 08:59 03/18/20 08:35 Laboratory Tests 03/17/20 13:06: POC Whole Blood Glucose 173H 03/17/20 18:46: POC Whole Blood Glucose [Pending] 03/17/20 23:53: POC Whole Blood Glucose 110H 03/18/20 03:50: White Blood Count 18.8H, Red Blood Count 3.39L, Hemoglobin 9.5L, Hematocrit 31.4L, Mean Corpuscular Volume 93, Mean Corpuscular Hemoglobin 28.0, Mean Corpuscular Hemoglobin Concent 30.2L, Red Cell Distribution Width 17.8H, Platelet Count 602H, Mean Platelet Volume 7.9, Neutrophils (%) (Auto) , Lymphocytes (%) (Auto) , Monocytes (%) (Auto) , Eosinophils (%) (Auto) , Basophils (%) (Auto) , Differential Total Cells Counted 100, Neutrophils % (Manual) 79H, Lymphocytes % (Manual) 11L, Monocytes % (Manual) 6, Eosinophils % (Manual) 4H, Basophils % (Manual) 0, Band Neutrophils 0, Platelet Estimate Incre asedH, Platelet Morphology Normal, Hypochromasia 1+, Anisocytosis 1+, Erythrocyte Sedimentation Rate 120H, Sodium Level 150H, Potassium Level 4.8, Chloride Level 116H, Carbon Dioxide Level 28, Anion Gap 6, Blood Urea Nitrogen 18, Creatinine 0.9, Estimat Glomerular Filtration Rate > 60, Glucose Level 172H, Calcium Level 8.6, Phosphorus Level 2.8, Magnesium Level 2.7H, Total Bilirubin 0.2, Aspartate Amino Transf (AST/SGOT) 15, Alanine Aminotransferase (ALT/SGPT) 25, Alkaline Phosphatase 111, C-Reactive Protein, Quantitative 17.5H, Total Protein 7.1, Albumin 1.5L, Globulin 5.6, Albumin/Globulin Ratio 0.3L 03/18/20 04:55: POC Whole Blood Glucose 155H Height (Feet): 5 Height (Inches): 5.00 Weight (Pounds): 147 General Appearance: no apparent distress EENT: other - Trach to vent Cardiovascular: tachycardia Respiratory/Chest: decreased breath sounds Abdomen: distended Mathew Huntley MD Mar 18, 2020 10:20
--- NOTE | 2020-03-18 10:34 | Pulmonology Progress Note ---
Subjective ROS Limited/Unobtainable: Yes Allergies: Coded Allergies: No Known Allergies (Unverified , 03/11/20) Subjective fever this am, leukocytosis with small trend down, still significant no signs of resp distress on current vent settings Objective Last 24 Hour Vital Signs Date Time Temp Pulse Resp B/P (MAP) Pulse Ox O2 Delivery O2 Flow Rate FiO2 03/18/20 10:06 99.1 03/18/20 08:35 99 119/61 03/18/20 08:00 Mechanical Ventilator 03/18/20 08:00 75 03/18/20 08:00 101.7 99 19 119/61 (80) 99 03/18/20 07:06 94 24 75 03/18/20 04:00 98.1 88 20 120/69 (86) 100 03/18/20 04:00 75 03/18/20 03:35 85 03/18/20 02:30 97 19 75 03/18/20 00:00 75 03/18/20 00:00 Mechanical Ventilator 03/18/20 00:00 98.0 92 20 127/73 (91) 100 03/17/20 23:37 89 03/17/20 22:35 104 25 75 03/17/20 21:13 98.4 03/17/20 20:00 98.2 99 20 130/88 (102) 100 03/17/20 20:00 93 03/17/20 20:00 75 03/17/20 20:00 Mechanical Ventilator 03/17/20 19:16 101 25 35 03/17/20 16:52 109 17 35 03/17/20 16:00 98.4 102 20 124/75 (91) 97 03/17/20 16:00 103 03/17/20 15:06 104 18 35 03/17/20 12:46 94 33 35 03/17/20 12:00 97.9 94 20 112/68 (83) 100 03/17/20 12:00 88 03/17/20 10:45 89 20 35 Intake and Output 03/17/20 03/18/20 19:00 07:00 Intake Total 90 ml 1030 ml Output Total 550 ml Balance 90 ml 480 ml Free Water 50 ml IV Total 440 ml Tube Feeding 90 ml 540 ml Output Urine Total 550 ml # Bowel Movements 3 General Appearance: no acute distress, other - chronically ill looking, bedridden,cachetic, not responsive, vent dependent female on vent AC HEENT: normocephalic, anicteric, status post trach - Portex # 7, secretions small amount, white color, thick coinsistency Respiratory: no respiratory distress, other - few scattered rhonchi Cardiovascular: regular rhythm - SR with occasional low ST Abdomen: normal bowel sounds, soft, non tender, other - G tube Extremities: no edema, pedal pulses normal Neurologic: abnormal gait, other - lethargic, Musculoskeletal: atrophy - BLE Laboratory Tests 03/17/20 13:06: POC Whole Blood Glucose 173H 03/17/20 18:46: POC Whole Blood Glucose [Pending] 03/17/20 23:53: POC Whole Blood Glucose 110H 03/18/20 03:50: White Blood Count 18.8H, Red Blood Count 3.39L, Hemoglobin 9.5L, Hematocrit 31.4L, Mean Corpuscular Volume 93, Mean Corpuscular Hemoglobin 28.0, Mean Corpuscular Hemoglobin Concent 30.2L, Red Cell Distribution Width 17.8H, Platelet Count 602H, Mean Platelet Volume 7.9, Neutrophils (%) (Auto) , Lymphocytes (%) (Auto) , Monocytes (%) (Auto) , Eosinophils (%) (Auto) , Basophils (%) (Auto) , Differential Total Cells Counted 100, Neutrophils % (Manual) 79H, Lymphocytes % (Manual) 11L, Monocytes % (Manual) 6, Eosinophils % (Manual) 4H, Basophils % (Manual) 0, Band Neutrophils 0, Platelet Estimate IncreasedH, Platelet Morphology Normal, Hypochromasia 1+, Anisocytosis 1+, Erythrocyte Sedimentation Rate 120H, Sodium Level 150H, Potassium Level 4.8, Chloride Level 116H, Carbon Dioxide Level 28, Anion Gap 6, Blood Urea Nitrogen 18, Creatinine 0.9, Estimat Glomerular Filtration Rate > 60, Glucose Level 172H, Calcium Level 8.6, Phosphorus Level 2.8, Magnesium Level 2.7H, Total Bilirubin 0.2, Aspartate Amino Transf (AST/SGOT) 15, Alanine Aminotransferase (ALT/SGPT) 25, Alkaline Phosphatase 111, C-Reactive Protein, Quantitative 17.5H, Total Protein 7.1, Albumin 1.5L, Globulin 5.6, Albumin/Globulin Ratio 0.3L 03/18/20 04:55: POC Whole Blood Glucose 155H Current Medications Medications (Trade) Dose Ordered Sig/Zaki Route PRN Reason Start Time Stop Time Status Last Admin Dose Admin Acetaminophen (Tylenol) 650 mg Q6H PRN GT Temp >100.5, Mild Pain 03/11/20 06:30 04/10/20 06:29 03/18/20 08:35 Amlodipine Besylate (Norvasc) 10 mg DAILY GT 03/11/20 09:00 04/10/20 08:59 03/18/20 08:35 Aspirin (ASA) 81 mg DAILY GT 03/11/20 09:00 04/25/20 08:59 03/18/20 08:35 Calcitonin [place] (Miacalcin) 1 sprays DAILY NASAL 03/13/20 11:00 06/11/20 10:59 03/18/20 08:36 Dextrose 1,000 ml @ 100 mls/hr Q10H ONCE IV 03/18/20 10:30 03/18/20 20:29 Dextrose (Dextrose 50%) 25 ml Q30M PRN IV Hypoglycemia 03/13/20 23:30 06/11/20 23:29 Dextrose (Dextrose 50%) 50 ml Q30M PRN IV Hypoglycemia 03/13/20 23:30 06/11/20 23:29 Diphenhydramine HCl (Benadryl) 25 mg Q8H PRN ORAL Itching 03/14/20 15:00 04/13/20 14:59 03/14/20 15:50 Famotidine (Pepcid) 20 mg BID GT 03/18/20 18:00 06/09/20 08:59 Insulin Aspart (NovoLOG) Q6HR SUBQ 03/14/20 00:00 06/12/20 00:00 03/18/20 05:03 Ondansetron HCl (Zofran) 4 mg Q4H PRN IVP Nausea & Vomiting 03/11/20 06:30 04/10/20 06:29 Piperacillin Sod/ Tazobactam Sod 3.375 gm/Sodium Chloride 110 ml @ 27.5 mls/hr EVERY 8 HOURS IVPB 03/17/20 22:00 03/24/20 21:59 03/18/20 05:02 Vancomycin HCl (Vanco pharmacy to dose) 1 ea DAILY PRN MISC Per rx protocol 03/11/20 06:30 04/10/20 06:29 Vancomycin HCl 500 mg/Sodium Chloride 110 ml @ 110 mls/hr Q12H IVPB 03/17/20 20:00 03/22/20 19:59 03/18/20 08:34 Zinc Sulfate (Zinc Sulfate) 220 mg DAILY ORAL 03/13/20 09:00 03/23/20 08:59 03/18/20 08:35 Assessment/Plan Assessment/Plan ASSESSMENT Acute on chronic respiratory failure Sepsis with MRSA bacteremia Probably pneumonia Ventilator dependent respiratory failure, tracheostomy status COPD Dysphagia , feeding by G-tube History of ICH DM HTN E/lyte abnormalities Severe protein calorie malnutrition Sacral decubitus ulcer , stage IV-present on admission Anemia Dementia Chronic vegetative state PLAN OF C[employer] SHIMON vent support, pulmonary toilet trach care baseline ABG stable on current settings, keep as is and titrate as needed CXR 03/17 noted abx as per ID recs-> Vanco and Zosyn last BCX e 03/14 NGTD SCX + Pseudomonas ECHO with pEF 65 to 70% , no evidence of vegetation , right ventricular systolic pressure of 40 consistent with mild pulmonary hypertension DEBBIE pending DVT prophylaxis aspiration precaution G-tube feeding TF formula, goal rate and protein supplement as per RD recs BS management with SSI monitor renal parameters, avoid nephrotoxics Hyper Ca resolved , s/p Aredia, now on calcitonin fup with further nephro recs monitor HH with goal to keep Hgb > 7 wound care as per surgeon recommendation supportive care case discussed and evaluated by supervising physician Isabel Polo NP Mar 18, 2020 10:34
--- NOTE | 2020-03-18 11:00 | NUR ---
RESPIRATORY NOTE: PT RECEIVED STABLE ON AC/VC: 16, 400, 75%, +5. ALARMS ARE ON AND AUDIBLE. VENT CIRCUIT IS SECURE AND OUT OF THE WAY. NO S/S OF RESPIRATORY DISTRESS NOTED AT THIS TIME. WILL CONTINUE TO CLOSELY MONITOR.
[2020-03-18 11:57] VITALS: BP 124/60
--- NOTE | 2020-03-18 12:57 | Surgery Progress Note ---
Surgery Progress Note Subjective Additional Comments wbc improved no n/v comfortable Objective Last 24 Hour Vital Signs Date Time Temp Pulse Resp B/P (MAP) Pulse Ox O2 Delivery O2 Flow Rate FiO2 03/18/20 11:59 Mechanical Ventilator 03/18/20 11:58 75 03/18/20 11:57 98.4 86 18 124/60 (81) 98 03/18/20 10:06 99.1 03/18/20 08:35 99 119/61 03/18/20 08:00 Mechanical Ventilator 03/18/20 08:00 98 03/18/20 08:00 75 03/18/20 08:00 101.7 99 19 119/61 (80) 99 03/18/20 07:06 94 24 75 03/18/20 04:00 98.1 88 20 120/69 (86) 100 03/18/20 04:00 75 03/18/20 03:35 85 03/18/20 02:30 97 19 75 03/18/20 00:00 75 03/18/20 00:00 Mechanical Ventilator 03/18/20 00:00 98.0 92 20 127/73 (91) 100 03/17/20 23:37 89 03/17/20 22:35 104 25 75 03/17/20 21:13 98.4 03/17/20 20:00 98.2 99 20 130/88 (102) 100 03/17/20 20:00 93 03/17/20 20:00 75 03/17/20 20:00 Mechanical Ventilator 03/17/20 19:16 101 25 35 03/17/20 16:52 109 17 35 03/17/20 16:00 98.4 102 20 124/75 (91) 97 03/17/20 16:00 103 03/17/20 15:06 104 18 35 I&O Intake and Output 03/17/20 03/18/20 19:00 07:00 Intake Total 90 ml 1030 ml Output Total 550 ml Balance 90 ml 480 ml Free Water 50 ml IV Total 440 ml Tube Feeding 90 ml 540 ml Output Urine Total 550 ml # Bowel Movements 3 Dressing: saturated Cardiovascular: RSR Respiratory: decreased breath sounds Abdomen: soft, non-tender, present bowel sounds Extremities: no tenderness, no cyanosis Laboratory Tests Test 03/17/20 13:06 03/17/20 18:46 03/17/20 23:53 03/18/20 03:50 POC Whole Blood Glucose 173 MG/DL (74-106) H Pending 110 MG/DL (74-106) H White Blood Count 18.8 K/UL (4.8-10.8) H Red Blood Count 3.39 M/UL (4.20-5.40) L Hemoglobin 9.5 G/DL (12.0-16.0) L Hematocrit 31.4 % (37.0-47.0) L Mean Corpuscular Volume 93 FL (80-99) Mean Corpuscular Hemoglobin 28.0 PG (27.0-31.0) Mean Corpuscular Hemoglobin Concent 30.2 G/DL (32.0-36.0) L Red Cell Distribution Width 17.8 % (11.6-14.8) H Platelet Count 602 K/UL (150-450) H Mean Platelet Volume 7.9 FL (6.5-10.1) Neutrophils (%) (Auto) % (45.0-75.0) Lymphocytes (%) (Auto) % (20.0-45.0) Monocytes (%) (Auto) % (1.0-10.0) Eosinophils (%) (Auto) % (0.0-3.0) Basophils (%) (Auto) % (0.0-2.0) Differential Total Cells Counted 100 Neutrophils % (Manual) 79 % (45-75) H Lymphocytes % (Manual) 11 % (20-45) L Monocytes % (Manual) 6 % (1-10) Eosinophils % (Manual) 4 % (0-3) H Basophils % (Manual) 0 % (0-2) Band Neutrophils 0 % (0-8) Platelet Estimate Increased H Platelet Morphology Normal Hypochromasia 1+ Anisocytosis 1+ Erythrocyte Sedimentation Rate 120 MM/HR (0-30) H Sodium Level 150 MMOL/L (136-145) H Potassium Level 4.8 MMOL/L (3.5-5.1) Chloride Level 116 MMOL/L (98-107) H Carbon Dioxide Level 28 MMOL/L (21-32) Anion Gap 6 mmol/L (5-15) Blood Urea Nitrogen 18 mg/dL (7-18) Creatinine 0.9 MG/DL (0.55-1.30) Estimat Glomerular Filtration Rate > 60 mL/min (>60) Glucose Level 172 MG/DL (74-106) H Calcium Level 8.6 MG/DL (8.5-10.1) Phosphorus Level 2.8 MG/DL (2.5-4.9) Magnesium Level 2.7 MG/DL (1.8-2.4) H Total Bilirubin 0.2 MG/DL (0.2-1.0) Aspartate Amino Transf (AST/SGOT) 15 U/L (15-37) Alanine Aminotransferase (ALT/SGPT) 25 U/L (12-78) Alkaline Phosphatase 111 U/L (46-116) C-Reactive Protein, Quantitative 17.5 mg/dL (0.00-0.90) H Total Protein 7.1 G/DL (6.4-8.2) Albumin 1.5 G/DL (3.4-5.0) L Globulin 5.6 g/dL Albumin/Globulin Ratio 0.3 (1.0-2.7) L Test 03/18/20 04:55 03/18/20 12:47 POC Whole Blood Glucose 155 MG/DL (74-106) H 191 MG/DL (74-106) H Plan Problems: (1) Hypernatremia (2) Sepsis (3) UTI (urinary tract infection) (4) Stage 4 decubitus ulcer Assessment & Plan: Stage 4 ulcer on admission. macerated edges. serous drainage. foul odor. no active infection Tx plan: wash with NS. apply therahoney gauze and dressing daily change prn saturation CT noted. osteo in sacrum cont abx osteo chronic will monitor and asses if debridement needed ABDOMEN: Liver: Unremarkable. No mass. Gallbladder and bile ducts: Unremarkable. No calcified stones. No ductal dilation. Pancreas: Unremarkable. No mass. No ductal dilation. Spleen: Spleen is small. Adrenals: Unremarkable. No mass. Kidneys and ureters: Renal cysts and subcentimeter low-attenuation foci, too small to characterize. No hydronephrosis. Stomach and bowel: Unremarkable. No obstruction. No mucosal thickening. PELVIS: Appendix: No findings to suggest acute appendicitis. Bladder: Bladder wall thickening. Foci of gas in the bladder. Correlate for recent instrumentation versus cystitis. Reproductive: Unremarkable as visualized. ABDOMEN and PELVIS: Intraperitoneal space: Unremarkable. No free air. No significant fluid collection. Bones/joints: Sacrococcygeal decubitus ulcers with associated osteomyelitis. There is some underlying bone thinning and sclerosis in the distal sacrum and coccyx underlying the decubitus ulcers. No acute fracture. No dislocation. Soft tissues: Unremarkable. Vasculature: Moderate plaque abdominal aorta and branches. No abdominal aortic aneurysm. Lymph nodes: Unremarkable. No enlarged lymph nodes. Tubes, lines and devices: Gastrostomy tube within the gastric body. IMPRESSION: 1. Sacrococcygeal decubitus ulcers with associated osteomyelitis. 2. Small left pleural effusion. Left lower lobe atelectasis. 3. Bladder wall thickening. Foci of gas in the bladder. Correlate for recent instrumentation versus cystitis. DAILY ESTIMATED NEEDS: Needs based on Advanced wound, critical care, underweight, [employer] TF/ 45.5kg 30-40 kcals/kg 8945-9759 total kcals 1.5-2 g protein/kg 68-91 g total protein 30-40 mL/kg 1914-1610 total fluid mLs NUTRITION DIAGNOSIS: Increased kcal/prot needs R/T underweight status, wound healing as evidenced by pt @83% IBW w/ underweight BMI of 17.2, admitted w/ multiple wounds, including stage 4 sacral wound. CURRENT TF:Glucerna 1.2 @ 45ml/hr x 24 hrs ENTERAL NUTRITION RECOMMENDATIONS: Glucerna 1.2 @ 60ml/hr x 24 hrs to provide 1440ml, 1728kcal, 86g prot, 1159ml free water * Increase goal rate to 60ml/hr x 24 hrs to meet 100% est kcal/prot needs -> 1.9g prot/kg * HOB over 30 degrees/ water flush per MD * add Shen BID ADDITIONAL RECOMMENDATIONS: * Per SNF: HT=64" and DX=967# vs EMR wt of 147lbs -> rec daily calibrated bedscale wt * Wound healing: TF rec @ goal will provide 100% RDI Vit C 500mg BID, ZnSO4 220gm QD x 10 days Shen BID via PEG * Monitor BGs, consider NISS: h/o DM * Monitor lytes, replete as needed (5) Chronic respiratory failure requiring continuous mechanical ventilation through tracheostomy (6) History of intracranial hemorrhage (7) Idiopathic obstructive hydrocephalus (8) Gout (9) Diabetes mellitus (10) Parkinson's disease dementia (11) Acute on chronic respiratory failure (12) Chronic vegetative state (13) Severe protein-calorie malnutrition Assessment & Plan: DAILY ESTIMATED NEEDS: Needs based on Advanced wound, critical care, underweight, [employer] TF/ 45.5kg 30-40 kcals/kg 8799-1727 total kcals 1.5-2 g protein/kg 68-91 g total protein 30-40 mL/kg 4625-1628 total fluid mLs NUTRITION DIAGNOSIS: Increased kcal/prot needs R/T underweight status, wound healing as evidenced by pt @83% IBW w/ underweight BMI of 17.2, admitted w/ multiple wounds, including stage 4 sacral wound. CURRENT TF:Glucerna 1.2 @ 45ml/hr x 24 hrs ENTERAL NUTRITION RECOMMENDATIONS: Glucerna 1.2 @ 60ml/hr x 24 hrs to provide 1440ml, 1728kcal, 86g prot, 1159ml free water * Increase goal rate to 60ml/hr x 24 hrs to meet 100% est kcal/prot needs -> 1.9g prot/kg * HOB over 30 degrees/ water flush per MD * add Shen BID ADDITIONAL RECOMMENDATIONS: * Per SNF: HT=64" and LV=975# vs EMR wt of 147lbs -> rec daily calibrated bedscale wt * Wound healing: TF rec @ goal will provide 100% RDI add Vit C 500mg BID, continue ZnSO4 220gm QD x 10 days Shen BID via PEG * Monitor BGs, consider NISS: h/o DM -> NISS now added * Add probiotics for diarrhea Chris Hunter Mar 18, 2020 12:57
--- NOTE | 2020-03-18 13:57 | NUR ---
NURSE NOTES:New Glucerna feeding formula hung with new line, rate increased to 60ML per MD order. No residual.
--- NOTE | 2020-03-18 14:11 | NUR ---
INSURANCE CLINICALS/ REVIEWS FAXED TO [facility] [phone]
[2020-03-18 16:00] VITALS: BP 126/69
--- NOTE | 2020-03-18 17:22 | Internal Med Progress Note ---
Subjective Date of Service: Mar 18, 2020 Physician Name Barajas,Piyush Attending Physician Jesus Lutz MD Current Medications Medications (Trade) Dose Ordered Sig/Zaki Route PRN Reason Start Time Stop Time Status Last Admin Dose Admin Acetaminophen (Tylenol) 650 mg Q6H PRN GT Temp >100.5, Mild Pain 03/11/20 06:30 04/10/20 06:29 03/18/20 08:35 Amlodipine Besylate (Norvasc) 10 mg DAILY GT 03/11/20 09:00 04/10/20 08:59 03/18/20 08:35 Aspirin (ASA) 81 mg DAILY GT 03/11/20 09:00 04/25/20 08:59 03/18/20 08:35 Calcitonin [place] (Miacalcin) 1 sprays DAILY NASAL 03/13/20 11:00 06/11/20 10:59 03/18/20 08:36 Dextrose 1,000 ml @ 100 mls/hr Q10H ONCE IV 03/18/20 10:30 03/18/20 20:29 03/18/20 10:41 Dextrose (Dextrose 50%) 25 ml Q30M PRN IV Hypoglycemia 03/13/20 23:30 06/11/20 23:29 Dextrose (Dextrose 50%) 50 ml Q30M PRN IV Hypoglycemia 03/13/20 23:30 06/11/20 23:29 Diphenhydramine HCl (Benadryl) 25 mg Q8H PRN ORAL Itching 03/14/20 15:00 04/13/20 14:59 03/14/20 15:50 Famotidine (Pepcid) 20 mg BID GT 03/18/20 18:00 06/09/20 08:59 03/18/20 17:19 Insulin Aspart (NovoLOG) Q6HR SUBQ 03/14/20 00:00 06/12/20 00:00 03/18/20 17:20 Ondansetron HCl (Zofran) 4 mg Q4H PRN IVP Nausea & Vomiting 03/11/20 06:30 04/10/20 06:29 Piperacillin Sod/ Tazobactam Sod 3.375 gm/Sodium Chloride 110 ml @ 27.5 mls/hr EVERY 8 HOURS IVPB 03/17/20 22:00 03/24/20 21:59 03/18/20 13:39 Vancomycin HCl (Vanco pharmacy to dose) 1 ea DAILY PRN MISC Per rx protocol 03/11/20 06:30 04/10/20 06:29 Vancomycin HCl 500 mg/Sodium Chloride 110 ml @ 110 mls/hr Q12H IVPB 03/17/20 20:00 03/22/20 19:59 03/18/20 08:34 Zinc Sulfate (Zinc Sulfate) 220 mg DAILY ORAL 03/13/20 09:00 03/23/20 08:59 03/18/20 08:35 Allergies: Coded Allergies: No Known Allergies (Unverified , 03/11/20) ROS Limited/Unobtainable: Yes Subjective 74 YO F trach dependent admitted with hypoxic respiratory failure. Now pneumonia and sepsis. Cover for Int Med-Dr Lutz. Step down unit. Objective Last Vital Signs Date Time Temp Pulse Resp B/P (MAP) Pulse Ox O2 Delivery O2 Flow Rate FiO2 03/18/20 16:35 95 20 75 03/18/20 11:59 Mechanical Ventilator 03/18/20 11:57 98.4 124/60 (81) 98 Laboratory Tests Test 03/17/20 18:46 03/17/20 23:53 03/18/20 03:50 03/18/20 04:55 POC Whole Blood Glucose Pending 110 MG/DL (74-106) H 155 MG/DL (74-106) H White Blood Count 18.8 K/UL (4.8-10.8) H Red Blood Count 3.39 M/UL (4.20-5.40) L Hemoglobin 9.5 G/DL (12.0-16.0) L Hematocrit 31.4 % (37.0-47.0) L Mean Corpuscular Volume 93 FL (80-99) Mean Corpuscular Hemoglobin 28.0 PG (27.0-31.0) Mean Corpuscular Hemoglobin Concent 30.2 G/DL (32.0-36.0) L Red Cell Distribution Width 17.8 % (11.6-14.8) H Platelet Count 602 K/UL (150-450) H Mean Platelet Volume 7.9 FL (6.5-10.1) Neutrophils (%) (Auto) % (45.0-75.0) Lymphocytes (%) (Auto) % (20.0-45.0) Monocytes (%) (Auto) % (1.0-10.0) Eosinophils (%) (Auto) % (0.0-3.0) Basophils (%) (Auto) % (0.0-2.0) Differential Total Cells Counted 100 Neutrophils % (Manual) 79 % (45-75) H Lymphocytes % (Manual) 11 % (20-45) L Monocytes % (Manual) 6 % (1-10) Eosinophils % (Manual) 4 % (0-3) H Basophils % (Manual) 0 % (0-2) Band Neutrophils 0 % (0-8) Platelet Estimate Increased H Platelet Morphology Normal Hypochromasia 1+ Anisocytosis 1+ Erythrocyte Sedimentation Rate 120 MM/HR (0-30) H Sodium Level 150 MMOL/L (136-145) H Potassium Level 4.8 MMOL/L (3.5-5.1) Chloride Level 116 MMOL/L (98-107) H Carbon Dioxide Level 28 MMOL/L (21-32) Anion Gap 6 mmol/L (5-15) Blood Urea Nitrogen 18 mg/dL (7-18) Creatinine 0.9 MG/DL (0.55-1.30) Estimat Glomerular Filtration Rate > 60 mL/min (>60) Glucose Level 172 MG/DL (74-106) H Calcium Level 8.6 MG/DL (8.5-10.1) Phosphorus Level 2.8 MG/DL (2.5-4.9) Magnesium Level 2.7 MG/DL (1.8-2.4) H Total Bilirubin 0.2 MG/DL (0.2-1.0) Aspartate Amino Transf (AST/SGOT) 15 U/L (15-37) Alanine Aminotransferase (ALT/SGPT) 25 U/L (12-78) Alkaline Phosphatase 111 U/L (46-116) C-Reactive Protein, Quantitative 17.5 mg/dL (0.00-0.90) H Total Protein 7.1 G/DL (6.4-8.2) Albumin 1.5 G/DL (3.4-5.0) L Globulin 5.6 g/dL Albumin/Globulin Ratio 0.3 (1.0-2.7) L Test 03/18/20 12:47 03/18/20 17:17 POC Whole Blood Glucose 191 MG/DL (74-106) H 191 MG/DL (74-106) H Intake and Output 03/17/20 03/18/20 19:00 07:00 Intake Total 90 ml 1075 ml Output Total 550 ml Balance 90 ml 525 ml Free Water 50 ml IV Total 440 ml Tube Feeding 90 ml 585 ml Output Urine Total 550 ml # Bowel Movements 3 Objective PHYSICAL EXAMINATION: GENERAL: The patient is a thin-appearing female who is intubated and nonverbal. HEENT: Eyes, pupils are equal and responsive to light and accommodation. Extraocular movements are intact. NECK: Supple without lymphadenopathy. Tracheostomy is in place. CHEST: Mech vent; Diffuse wheezes bilaterally without rhonchi. CARDIOVASCULAR: Tachycardic, regular rhythm. S1, S2 are normal without murmurs, rubs, or gallops. ABDOMEN: Soft, nontender, and nondistended. Positive bowel sounds. No evidence of hepatosplenomegaly. Currently, no rebound or guarding noted. EXTREMITIES: Negative for clubbing, cyanosis, or edema. RECTAL/GENITAL: Not performed. NEUROLOGIC: Unable to assess. chest x-ray revealed left lower lobe consolidation consistent with pneumonia Assessment/Plan Assessment/Plan ASSESSMENT: This is a 74-year-old female. 1. Left lower lobe pneumonia. 2. Respiratory failure. 3. Hypernatremia. 4. Renal failure. 5. Hypoxemia. 6. Tracheostomy dependence. 7. Chronic obstructive pulmonary disease. 8. Diabetes type 2. 9. Parkinson disease. 10. Gout. 11. Glaucoma. 12. Sacral decubitus ulcer stage IV. 13. History of intracranial hemorrhage. 14. Hydrocephalus. 15. sepsis=MRSA 16. UTI=MDR acenitobacter TREATMENT: 1. Left lower lobe pneumonia/respiratory failure/sepsis. Pulmonary consultation =Dr. Patti Matta. ABX= vancomycin Infectious disease=Dr. Cruz. We will follow recommendations of Infectious Disease and Pulmonary. 2. Hypernatremia. Hypernatremia may be secondary to renal failure versus dehydration. Nephrology consultation =. 3. Renal failure nephrology consultation =Dr. Huntley. 4. Tracheostomy dependence. 5. Chronic obstructive pulmonary disease. 6. Diabetes type 2. NovoLog sliding scale has been instituted. 7. Parkinson disease. 8. Gout. Continue allopurinol as above. 9. Glaucoma. 10. Sacral decubitus ulcer stage IV. A general surgery consultation has been obtained with Dr. Chris Hunter. 11. History of intracranial hemorrhage. 12. Await DEBBIE; cardiology=Piyush Westfall MD Mar 18, 2020 17:22
--- NOTE | 2020-03-18 18:10 | NUR ---
NURSE NOTES:Michelle administered via [facility].
--- NOTE | 2020-03-18 19:25 | NUR ---
NURSE NOTES: Received report from Vlad Scott, Pt in bed, asleep, non verbal, no signs or symptoms of acute cardiac or respiratory distress noted. On vent -trach with prescribed setting. Appears to be saturating @ 99%. With G tube running Glucerna 1.2 at 60cc/hr - no residual noted, Suprapubic catheter intact and draining to gravity, repositioned and turned pt.R Hand 24g IV intact and patent- SL and R forearm #20g SL. Aspiration precautions observed- HOB elevated, skin precautions observed, will continue to monitor pt. Bed alarm on, side rails up x's 3 and safety brakes engaged, call light within easy reach.
--- NOTE | 2020-03-18 19:46 | NUR ---
NURSE HAND-OFF REPORT: Important Events on Shift: Patient Status: Stable Diet: Glucerna 1.2 @60ML/HR Pending Orders: Pending Results/Labs: Pending MD notification: Latest Vital Signs: Temperature 98.4 , Pulse 95 , B/P 126 /69 , Respiratory Rate 20 , O2 SAT 99 , Mechanical Ventilator, O2 Flow Rate . Vital Sign Comment: EKG Rhythm: Sinus Rhythm Rhythm change?: N MD Notified?: N - MD Response: Latest Ochoa Fall Score: 35 Fall Risk: Medium Risk Safety Measures: Call light Within Reach, Bed Alarm Zone 1, Side Rails Side Rails x3, Bed position Low and Locked. Fall Precautions: Yellow Socks Door Sign Patient Fall Education Report given to ADILENE Garrison.
[2020-03-18 20:00] VITALS: BP 110/64
--- NOTE | 2020-03-18 21:19 | Cardiac Electrophysiology PN ---
Assessment/Plan Assessment/Plan 1. MRSA bacteremia. Most recent blood culture from March 13, 2020 showed no growth. Echocardiogram showed ejection fraction of 60-65% with no clear vegetation. Transesophageal echocardiogram pending. 2. VDRF , status post tracheostomy.On 75% Fio2 3. Dysphagia, status post PEG placement. 4. History of intracranial hemorrhage. 5. COPD. 6. Diabetes. 7. Glaucoma. 8. Sacral decubitus stage IV. 9. Hypertension, on amlodipine [address] Shirley Villegas and Cardiology department Subjective Subjective Off pressors on the Vent in sinus tach Fio2 75%. DEBBIE still pending Objective Last 24 Hour Vital Signs Date Time Temp Pulse Resp B/P (MAP) Pulse Ox O2 Delivery O2 Flow Rate FiO2 03/18/20 19:00 102 20 75 03/18/20 16:35 95 20 75 03/18/20 16:00 91 03/18/20 16:00 98.4 98 19 126/69 (88) 99 03/18/20 16:00 Mechanical Ventilator 03/18/20 15:56 75 03/18/20 15:00 90 16 75 03/18/20 12:00 85 03/18/20 11:59 Mechanical Ventilator 03/18/20 11:58 75 03/18/20 11:57 98.4 86 18 124/60 (81) 98 03/18/20 11:00 95 24 75 03/18/20 10:06 99.1 03/18/20 08:35 99 119/61 03/18/20 08:00 Mechanical Ventilator 03/18/20 08:00 98 03/18/20 08:00 75 03/18/20 08:00 101.7 99 19 119/61 (80) 99 03/18/20 07:06 94 24 75 03/18/20 04:00 98.1 88 20 120/69 (86) 100 03/18/20 04:00 75 03/18/20 03:35 85 03/18/20 02:30 97 19 75 03/18/20 00:00 75 03/18/20 00:00 Mechanical Ventilator 03/18/20 00:00 98.0 92 20 127/73 (91) 100 03/17/20 23:37 89 03/17/20 22:35 104 25 75 Intake and Output 03/17/20 03/18/20 19:00 07:00 Intake Total 90 ml 1075 ml Output Total 550 ml Balance 90 ml 525 ml Free Water 50 ml IV Total 440 ml Tube Feeding 90 ml 585 ml Output Urine Total 550 ml # Bowel Movements 3 Laboratory Tests Test 03/17/20 23:53 03/18/20 03:50 03/18/20 04:55 03/18/20 12:47 POC Whole Blood Glucose 110 MG/DL (74-106) H 155 MG/DL (74-106) H 191 MG/DL (74-106) H White Blood Count 18.8 K/UL (4.8-10.8) H Red Blood Count 3.39 M/UL (4.20-5.40) L Hemoglobin 9.5 G/DL (12.0-16.0) L Hematocrit 31.4 % (37.0-47.0) L Mean Corpuscular Volume 93 FL (80-99) Mean Corpuscular Hemoglobin 28.0 PG (27.0-31.0) Mean Corpuscular Hemoglobin Concent 30.2 G/DL (32.0-36.0) L Red Cell Distribution Width 17.8 % (11.6-14.8) H Platelet Count 602 K/UL (150-450) H Mean Platelet Volume 7.9 FL (6.5-10.1) Neutrophils (%) (Auto) % (45.0-75.0) Lymphocytes (%) (Auto) % (20.0-45.0) Monocytes (%) (Auto) % (1.0-10.0) Eosinophils (%) (Auto) % (0.0-3.0) Basophils (%) (Auto) % (0.0-2.0) Differential Total Cells Counted 100 Neutrophils % (Manual) 79 % (45-75) H Lymphocytes % (Manual) 11 % (20-45) L Monocytes % (Manual) 6 % (1-10) Eosinophils % (Manual) 4 % (0-3) H Basophils % (Manual) 0 % (0-2) Band Neutrophils 0 % (0-8) Platelet Estimate Increased H Platelet Morphology Normal Hypochromasia 1+ Anisocytosis 1+ Erythrocyte Sedimentation Rate 120 MM/HR (0-30) H Sodium Level 150 MMOL/L (136-145) H Potassium Level 4.8 MMOL/L (3.5-5.1) Chloride Level 116 MMOL/L (98-107) H Carbon Dioxide Level 28 MMOL/L (21-32) Anion Gap 6 mmol/L (5-15) Blood Urea Nitrogen 18 mg/dL (7-18) Creatinine 0.9 MG/DL (0.55-1.30) Estimat Glomerular Filtration Rate > 60 mL/min (>60) Glucose Level 172 MG/DL (74-106) H Calcium Level 8.6 MG/DL (8.5-10.1) Phosphorus Level 2.8 MG/DL (2.5-4.9) Magnesium Level 2.7 MG/DL (1.8-2.4) H Total Bilirubin 0.2 MG/DL (0.2-1.0) Aspartate Amino Transf (AST/SGOT) 15 U/L (15-37) Alanine Aminotransferase (ALT/SGPT) 25 U/L (12-78) Alkaline Phosphatase 111 U/L (46-116) C-Reactive Protein, Quantitative 17.5 mg/dL (0.00-0.90) H Total Protein 7.1 G/DL (6.4-8.2) Albumin 1.5 G/DL (3.4-5.0) L Globulin 5.6 g/dL Albumin/Globulin Ratio 0.3 (1.0-2.7) L Test 03/18/20 17:17 POC Whole Blood Glucose 191 MG/DL (74-106) H Objective HEAD AND NECK: No JVD. LUNGS: Coarse rhonchi. She is status post tracheostomy. CARDIOVASCULAR: Regular S1 and S2 with no gallop or rub. Status post PEG. EXTREMITIES: 1+ pitting edema with sacral decubitus. Shay Alejandre MD Mar 18, 2020 21:19
--- NOTE | 2020-03-18 22:08 | NUR ---
NURSE NOTES: Tylenol 650mg given for elevated temp 101.8F.
[2020-03-19] VITALS: BP 120/69
[2020-03-19] MEDS: NovoLOG Insulin Flexpen SUBQ SCH ×4 (00:47→17:20)
--- NOTE | 2020-03-19 02:50 | NUR ---
NURSE NOTES: Sponge bath given, oral care provided. Turned and repositioned pt q2. Will continue to monitor.
[2020-03-19 04:00] VITALS: BP 113/61
[2020-03-19 05:15] LABS: BASOPHILS % (AUTO) 0.5 % (0.0-2.0); EOSINOPHILS % (AUTO) 8.2 % (0.0-3.0); HEMATOCRIT 34.6 % (37.0-47.0); HEMOGLOBIN 10.1 G/DL (12.0-16.0); LYMPHOCYTES % (AUTO) 11.4 % (20.0-45.0); MEAN CORPUSCULAR VOLUME 94 FL (80-99); MONOCYTES % (AUTO) 3.5 % (1.0-10.0); NEUTROPHILS % (AUTO) 76.4 % (45.0-75.0); PLATELET COUNT 635 K/UL (150-450); RED BLOOD COUNT 3.67 M/UL (4.20-5.40); RED CELL DISTRIBUTION WIDTH 17.6 % (11.6-14.8); WHITE BLOOD COUNT 16.8 K/UL (4.8-10.8)
[2020-03-19] MEDS: Piperacillin/Tazobactam 3.375 GM in NS 110 ML IVPB SCH ×3 (05:43→22:25)
[2020-03-19 07:26] LABS: ANION GAP 5 mmol/L (5-15); BLOOD UREA NITROGEN 25 mg/dL (7-18); CALCIUM 8.5 MG/DL (8.5-10.1); CARBON DIOXIDE 29 MMOL/L (21-32); CHLORIDE 116 MMOL/L (98-107); CREATININE 0.8 MG/DL (0.55-1.30); POTASSIUM 4.9 MMOL/L (3.5-5.1); SODIUM 150 MMOL/L (136-145)
--- NOTE | 2020-03-19 07:26 | NUR ---
NURSE HAND-OFF REPORT: Important Events on Shift: Patient Status: Stable Diet: Glucerna 1.2 Pending Orders: Pending Results/Labs: Pending MD notification: Latest Vital Signs: Temperature 99.7 , Pulse 92 , B/P 113 /61 , Respiratory Rate 20 , O2 SAT 100 , Mechanical Ventilator, O2 Flow Rate . Vital Sign Comment: Stable EKG Rhythm: Sinus Rhythm Rhythm change?: N MD Notified?: N - MD Response: Latest Ochoa Fall Score: 35 Fall Risk: Medium Risk Safety Measures: Call light Within Reach, Bed Alarm Zone 1, Side Rails Side Rails x3, Bed position Low and Locked. Fall Precautions: Yellow Socks Door Sign Patient Fall Education Report given to Vlad Marie.
--- NOTE | 2020-03-19 07:30 | NUR ---
NURSE NOTES: Received report from ADILENE Phillip. The patient is resting on the bed without acute distress or shortness of breath. The patient is obtunded, opening eyes spontaneously but not tracking. Communication made by facial expression and body movement. SR to ST with HR of 100s on the monitor and storage bin tender. The patient is trach'ed to vent on following setting and oxygen saturation is 100%: Portex 7, AC 16, TV 400, FiO2 75%, and PEEP 5. The patient's GT intact and patent and running Glucerna 1.2 @ 60mL/hr per order and no residual noted. The patient has Suprapubic catheter that is intact and draining by gravity. Skin issue noted and dressing intact. The patient has R FA 20G and R hand 24G PIVs those are intact and patent. The patient is pending for DEBBIE to rule out endocarditis due to consistent fever. The patient's bed in the lowest position, call light in reach, and fall and aspiration precaution reinforced. PIV sites intact and patent. Will follow up the lab and order. Will closely monitor the patient. Will continue plan of care.
[2020-03-19 08:00] VITALS: BP 119/73
--- NOTE | 2020-03-19 08:00 | NUR ---
NURSE NOTES: Morning vital signs taken. Morning nursing assessment done. Fever noted. Will administer Tylenol as PRN order. Will closely monitor the patient. Will continue plan of care.
[2020-03-19] MEDS: Vancomycin 500 MG in NS 110 ML IVPB SCH ×2 (08:44→19:43)
[2020-03-19] MEDS: Aspirin Baby 81mg GT SCH (08:52)
[2020-03-19] MEDS: Zinc Sulfate 220mg ORAL SCH (08:54)
[2020-03-19] MEDS: Acetaminophen 650mg/20.3ml GT PRN ×2 (08:55→22:25)
--- NOTE | 2020-03-19 09:00 | NUR ---
NURSE NOTES: HAI Hall at the bedside assessed the patient. Notified abnormal lab including WBC, D-dimer, Na, and CXR result. Also notified fever and sinus tachycardia. HAI Hall ordered ABG to be done. Will carry out the order as soon as possible. Will closely monitor the patient. Will continue plan of care.
--- NOTE | 2020-03-19 10:00 | NUR ---
NURSE NOTES: Morning medications administered per order. The patient tolerated well. Held aspirin due to OB stool positive result. Tylenol administered for fever. Will closely monitor the patient. Will continue plan of care.
--- NOTE | 2020-03-19 10:08 | Pulmonology Progress Note ---
Subjective ROS Limited/Unobtainable: Yes Allergies: Coded Allergies: No Known Allergies (Unverified , 03/11/20) Subjective fevers this am, persistent leukocytosis with small trend down, still significant no signs of resp distress on current vent settings Objective Last 24 Hour Vital Signs Date Time Temp Pulse Resp B/P (MAP) Pulse Ox O2 Delivery O2 Flow Rate FiO2 03/19/20 09:25 99.6 03/19/20 08:53 94 119/73 03/19/20 08:35 82 03/19/20 07:16 97 22 60 03/19/20 04:00 99.7 92 20 113/61 (78) 100 03/19/20 04:00 Mechanical Ventilator 03/19/20 04:00 75 03/19/20 03:47 93 03/19/20 02:40 92 24 75 03/19/20 00:00 Mechanical Ventilator 03/19/20 00:00 97.5 96 22 120/69 (86) 100 03/19/20 00:00 75 03/18/20 23:34 95 03/18/20 23:26 101 28 75 03/18/20 22:38 99.5 03/18/20 20:00 75 03/18/20 20:00 101.8 102 20 110/64 (79) 100 03/18/20 19:32 105 03/18/20 19:00 102 20 75 03/18/20 16:35 95 20 75 03/18/20 16:00 91 03/18/20 16:00 98.4 98 19 126/69 (88) 99 03/18/20 16:00 Mechanical Ventilator 03/18/20 15:56 75 03/18/20 15:00 90 16 75 03/18/20 12:00 85 03/18/20 11:59 Mechanical Ventilator 03/18/20 11:58 75 03/18/20 11:57 98.4 86 18 124/60 (81) 98 03/18/20 11:00 95 24 75 l Intake and Output 03/18/20 03/19/20 19:00 07:00 Intake Total 1131.66 ml 1080 ml Output Total 1000 ml Balance 1131.66 ml 80 ml Free Water 120 ml 200 ml IV Total 531.66 ml 220 ml Tube Feeding 480 ml 660 ml Output Urine Total 1000 ml General Appearance: no acute distress, other - chronically ill looking, bedridden,cachetic, not responsive, vent dependent female on vent AC HEENT: normocephalic, anicteric, status post trach - Portex # 7, secretions small amount, white color, thick coinsistency Respiratory: no respiratory distress, other - few scattered rhonchi Cardiovascular: regular rhythm - SR with occasional low ST Abdomen: normal bowel sounds, soft, non tender, other - G tube Extremities: no edema, pedal pulses normal Neurologic: abnormal gait, other - lethargic, Musculoskeletal: atrophy - BLE Laboratory Tests 03/18/20 12:47: POC Whole Blood Glucose 191H 03/18/20 17:17: POC Whole Blood Glucose 191H 03/19/20 00:44: POC Whole Blood Glucose 141H 03/19/20 03:16: White Blood Count 16.8H, Red Blood Count 3.67L, Hemoglobin 10.1L, Hematocrit 34.6L, Mean Corpuscular Volume 94, Mean Corpuscular Hemoglobin 27.4, Mean Corpuscular Hemoglobin Concent 29.1L, Red Cell Distribution Width 17.6H, Platelet Count 635H, Mean Platelet Volume 7.2, Neutrophils (%) (Auto) 76.4H, Lymphocytes (%) (Auto) 11.4L, Monocytes (%) (Auto) 3.5, Eosinophils (%) (Auto) 8.2H, Basophils (%) (Auto) 0.5 03/19/20 05:13: POC Whole Blood Glucose 146H 03/19/20 06:29: Sodium Level 150H, Potassium Level 4.9, Chloride Level 116H, Carbon Dioxide Level 29, Anion Gap 5, Blood Urea Nitrogen 25H, Creatinine 0.8, Estimat Glomerular Filtration Rate > 60, Glucose Level 172H, Calcium Level 8.5 Current Medications Medications (Trade) Dose Ordered Sig/Zaki Route PRN Reason Start Time Stop Time Status Last Admin Dose Admin Acetaminophen (Tylenol) 650 mg Q6H PRN GT Temp >100.5, Mild Pain 03/11/20 06:30 04/10/20 06:29 03/19/20 08:55 Amlodipine Besylate (Norvasc) 10 mg DAILY GT 03/11/20 09:00 04/10/20 08:59 03/19/20 08:53 Aspirin (ASA) 81 mg DAILY GT 03/11/20 09:00 04/25/20 08:59 03/18/20 08:35 Calcitonin [place] (Miacalcin) 1 sprays DAILY NASAL 03/13/20 11:00 06/11/20 10:59 03/19/20 08:54 Dextrose (Dextrose 50%) 25 ml Q30M PRN IV Hypoglycemia 03/13/20 23:30 06/11/20 23:29 Dextrose (Dextrose 50%) 50 ml Q30M PRN IV Hypoglycemia 03/13/20 23:30 06/11/20 23:29 Diphenhydramine HCl (Benadryl) 25 mg Q8H PRN ORAL Itching 03/14/20 15:00 04/13/20 14:59 03/14/20 15:50 Famotidine (Pepcid) 20 mg BID GT 03/18/20 18:00 06/09/20 08:59 03/19/20 08:53 Insulin Aspart (NovoLOG) Q6HR SUBQ 03/14/20 00:00 06/12/20 00:00 03/19/20 05:21 Ondansetron HCl (Zofran) 4 mg Q4H PRN IVP Nausea & Vomiting 03/11/20 06:30 04/10/20 06:29 Piperacillin Sod/ Tazobactam Sod 3.375 gm/Sodium Chloride 110 ml @ 27.5 mls/hr EVERY 8 HOURS IVPB 03/17/20 22:00 03/24/20 21:59 03/19/20 05:43 Vancomycin HCl (Vanco pharmacy to dose) 1 ea DAILY PRN MISC Per rx protocol 03/11/20 06:30 04/10/20 06:29 Vancomycin HCl 500 mg/Sodium Chloride 110 ml @ 110 mls/hr Q12H IVPB 03/17/20 20:00 03/22/20 19:59 03/19/20 08:44 Zinc Sulfate (Zinc Sulfate) 220 mg DAILY ORAL 03/13/20 09:00 03/23/20 08:59 03/19/20 08:54 Assessment/Plan Assessment/Plan ASSESSMENT Acute on chronic respiratory failure Sepsis with MRSA bacteremia Probably pneumonia Ventilator dependent respiratory failure, tracheostomy status COPD Dysphagia , feeding by G-tube History of ICH DM HTN E/lyte abnormalities Severe protein calorie malnutrition Sacral decubitus ulcer , stage IV-present on admission Anemia Dementia Chronic vegetative state PLAN OF CARE SHIMON vent support, pulmonary toilet trach care baseline ABG stable on current settings, keep as is and titrate as needed CXR 03/17 noted fup with CXR in am abx as per ID recs-> Vanco and Harleen last BCX 03/14 NGTD SCX + Pseudomonas ECHO with pEF 65 to 70% , no evidence of vegetation , right ventricular systolic pressure of 40 consistent with mild pulmonary hypertension DEBBIE pending DVT prophylaxis aspiration precaution G-tube feeding TF formula, goal rate and protein supplement as per RD recs BS management with SSI monitor renal parameters, avoid nephrotoxics Hyper Ca resolved , s/p Aredia, now on calcitonin fup with further nephro recs monitor HH with goal to keep Hgb > 7 wound care as per surgeon recommendation supportive care case discussed and evaluated by supervising physician Isabel Polo NP Mar 19, 2020 10:08
--- NOTE | 2020-03-19 10:58 | NUR ---
CASE MANAGEMENT:REVIEW 03/19/20 SI: MRSA SEPSIS TRACH/VENT/GT DEPENDENT 101.5 94 16 119/73 100% ON VENT SUPPORT 60% FIO2 WBC+18.8 NA+150 IS: IV ZOSYN Q8HRS IV VANCOMYCIN Q12 ZINC GT QD PEPCID GT BID NORVASC GT QD HEPARIN SQ Q12 ASA PO QD : STEP DOWN UNIT DCP: FROM [place] PLAN: DEBBIE PENDING
--- NOTE | 2020-03-19 11:00 | NUR ---
NURSE NOTES: ABG result notified to HAI Hall. HAI Hall ordered to titrate FiO2 to keep SpO2 above 92%. FiO2 titrated to 50% for now. Will closely monitor the patient. Will continue plan of care.
[2020-03-19 12:00] VITALS: BP 104/57
--- NOTE | 2020-03-19 12:00 | NUR ---
NURSE NOTES: The patient is resting comfortably without acute distress or shortness of breath. Fever subsided. Will closely monitor the patient. Will continue plan of care.
--- NOTE | 2020-03-19 12:12 | Nephrology Progress Note ---
Assessment/Plan Problem List: (1) Hypercalcemia (2) Hypernatremia (3) Sepsis (4) UTI (urinary tract infection) (5) Stage 4 decubitus ulcer (6) Acute on chronic respiratory failure (7) Chronic vegetative state (8) Severe protein-calorie malnutrition Assessment Azotemia and hypernatremia indicative of severe dehydration and free water deficit Acute on chronic respiratory failure, on mechanical ventilation Severe underlying anemia Sepsis Stage IV decubitus Idiopathic obstructive hydrocephalus, history of intracranial hemorrhage Diabetes mellitus Parkinson's disease, dementia Protein calorie malnutrition Plan March 19: Labs reviewed. Serum sodium unchanged at 150. Another liter of D5W ordered. Serum calcium stable. Continue as is. March 18: Labs reviewed. Serum sodium 150. 1 L of D5W IV ordered. Serum calcium stable. Continue as is. March 17: Labs reviewed. Renal parameters stable. Continue to watch serum calcium. Continue per consultants. March 16: Labs reviewed. Serum calcium stable. Medication list reviewed. Abnormal electrolyte addressed. Continue current management. March 15: Labs reviewed. Serum calcium lowering. Abnormal electrolytes addressed. Continue per consultants. March 14: Labs reviewed. Status quo. Serum calcium lowering. Magnesium and potassium supplement ordered. Continue per current treatment plan. March 13: 1 dose of pamidronate 60 mg for high calcium IV ordered. Labs reviewed. Medication list reviewed. Electrolytes improving. Hemoglobin higher after transfusion. Nasal calcitonin initiated March 12: D5W at 75 cc an hour Monitor electrolytes Monitor hemoglobin hematocrit Gastric support Consider transfusion Continue per orders Parameters for blood pressure medication Antibiotics per ID Subjective ROS Limited/Unobtainable: Yes Objective Objective Last 24 Hour Vital Signs Date Time Temp Pulse Resp B/P (MAP) Pulse Ox O2 Delivery O2 Flow Rate FiO2 03/19/20 12:00 50 03/19/20 11:00 50 03/19/20 10:40 88 23 50 03/19/20 09:25 99.6 03/19/20 08:53 94 119/73 03/19/20 08:35 82 03/19/20 08:00 60 03/19/20 08:00 101.5 94 16 119/73 (88) 100 03/19/20 07:16 97 22 60 03/19/20 04:00 99.7 92 20 113/61 (78) 100 03/19/20 04:00 Mechanical Ventilator 03/19/20 04:00 75 03/19/20 03:47 93 11/22/20 02:40 92 24 75 03/19/20 00:00 Mechanical Ventilator 03/19/20 00:00 97.5 96 22 120/69 (86) 100 03/19/20 00:00 75 03/18/20 23:34 95 03/18/20 23:26 101 28 75 03/18/20 22:38 99.5 03/18/20 20:00 75 03/18/20 20:00 101.8 102 20 110/64 (79) 100 03/18/20 19:32 105 03/18/20 19:00 102 20 75 03/18/20 16:35 95 20 75 03/18/20 16:00 91 03/18/20 16:00 98.4 98 19 126/69 (88) 99 03/18/20 16:00 Mechanical Ventilator 03/18/20 15:56 75 03/18/20 15:00 90 16 75 Intake and Output 03/18/20 03/19/20 19:00 07:00 Intake Total 1131.66 ml 1080 ml Output Total 1000 ml Balance 1131.66 ml 80 ml Free Water 120 ml 200 ml IV Total 531.66 ml 220 ml Tube Feeding 480 ml 660 ml Output Urine Total 1000 ml Laboratory Tests 03/18/20 12:47: POC Whole Blood Glucose 191H 03/18/20 17:17: POC Whole Blood Glucose 191H 03/19/20 00:44: POC Whole Blood Glucose 141H 03/19/20 03:16: White Blood Count 16.8H, Red Blood Count 3.67L, Hemoglobin 10.1L, Hematocrit 34.6L, Mean Corpuscular Volume 94, Mean Corpuscular Hemoglobin 27.4, Mean Corpus cular Hemoglobin Concent 29.1L, Red Cell Distribution Width 17.6H, Platelet Count 635H, Mean Platelet Volume 7.2, Neutrophils (%) (Auto) 76.4H, Lymphocytes (%) (Auto) 11.4L, Monocytes (%) (Auto) 3.5, Eosinophils (%) (Auto) 8.2H, Basophils (%) (Auto) 0.5 03/19/20 05:13: POC Whole Blood Glucose 146H 03/19/20 06:29: Sodium Level 150H, Potassium Level 4.9, Chloride Level 116H, Carbon Dioxide Level 29, Anion Gap 5, Blood Urea Nitrogen 25H, Creatinine 0.8, Estimat Glomerular Filtration Rate > 60, Glucose Level 172H, Calcium Level 8.5 03/19/20 10:28: Arterial Blood pH 7.401, Arterial Blood Partial Pressure CO2 46.4H, Arterial Blood Partial Pressure O2 248.0H, Arterial Blood HCO3 28.2H, Arterial Blood Oxygen Saturation 99.3, Arterial Blood Base Excess 2.9H, Mukul Test Positive Height (Feet): 5 Height (Inches): 5.00 Weight (Pounds): 147 General Appearance: no apparent distress EENT: other - Trach to vent Cardiovascular: tachycardia Respiratory/Chest: decreased breath sounds Abdomen: distended Mathew Huntley MD Mar 19, 2020 12:12
--- NOTE | 2020-03-19 12:30 | NUR ---
NURSE NOTES: BS 170 noted. Novolog administered per protocol. The patient tolerated well. Will closely monitor the patient. Will continue plan of care.
--- NOTE | 2020-03-19 13:32 | NUR ---
INSURANCE CLINICALS/ REVIEWS FAXED TO [facility] [phone]
--- NOTE | 2020-03-19 14:00 | NUR ---
NURSE NOTES: The patient is resting on the bed without acute distress or shortness of breath. Tolerating vent setting and tube feeding well. Will closely monitor the patient. Will continue plan of care.
[2020-03-19] MEDS ORDERED: NS 275ml ONE (14:16)
[2020-03-19] MEDS ORDERED: Tubing IV Secondary IV ONE (14:16)
--- NOTE | 2020-03-19 15:38 | Internal Med Progress Note ---
Subjective Date of Service: Mar 19, 2020 Physician Name BarajasPiyush Attending Physician Jesus Lutz MD Current Medications Medications (Trade) Dose Ordered Sig/Zaki Route PRN Reason Start Time Stop Time Status Last Admin Dose Admin Acetaminophen (Tylenol) 650 mg Q6H PRN GT Temp >100.5, Mild Pain 03/11/20 06:30 04/10/20 06:29 03/19/20 08:55 Amlodipine Besylate (Norvasc) 10 mg DAILY GT 03/11/20 09:00 04/10/20 08:59 03/19/20 08:53 Aspirin (ASA) 81 mg DAILY GT 03/11/20 09:00 04/25/20 08:59 03/18/20 08:35 Calcitonin [place] (Miacalcin) 1 sprays DAILY NASAL 03/13/20 11:00 06/11/20 10:59 03/19/20 08:54 Dextrose 1,000 ml @ 100 mls/hr Q10H IV 03/19/20 12:15 04/18/20 12:14 03/19/20 12:24 Dextrose (Dextrose 50%) 25 ml Q30M PRN IV Hypoglycemia 03/13/20 23:30 06/11/20 23:29 Dextrose (Dextrose 50%) 50 ml Q30M PRN IV Hypoglycemia 03/13/20 23:30 06/11/20 23:29 Diphenhydramine HCl (Benadryl) 25 mg Q8H PRN ORAL Itching 03/14/20 15:00 04/13/20 14:59 03/14/20 15:50 Famotidine (Pepcid) 20 mg BID GT 03/18/20 18:00 06/09/20 08:59 03/19/20 08:53 Insulin Aspart (NovoLOG) Q6HR SUBQ 03/14/20 00:00 06/12/20 00:00 03/19/20 12:23 Ondansetron HCl (Zofran) 4 mg Q4H PRN IVP Nausea & Vomiting 03/11/20 06:30 04/10/20 06:29 Piperacillin Sod/ Tazobactam Sod 3.375 gm/Sodium Chloride 110 ml @ 27.5 mls/hr EVERY 8 HOURS IVPB 03/17/20 22:00 03/24/20 21:59 03/19/20 13:25 Vancomycin HCl (Vanco pharmacy to dose) 1 ea DAILY PRN MISC Per rx protocol 03/11/20 06:30 04/10/20 06:29 Vancomycin HCl 500 mg/Sodium Chloride 110 ml @ 110 mls/hr Q12H IVPB 03/17/20 20:00 03/22/20 19:59 03/19/20 08:44 Zinc Sulfate (Zinc Sulfate) 220 mg DAILY ORAL 03/13/20 09:00 03/23/20 08:59 03/19/20 08:54 Allergies: Coded Allergies: No Known Allergies (Unverified , 03/11/20) ROS Limited/Unobtainable: Yes Subjective 74 YO F trach dependent admitted with hypoxic respiratory failure. Now pneumonia and sepsis. Cover for Int Med-Dr Lutz. Step down unit. Objective Last Vital Signs Date Time Temp Pulse Resp B/P (MAP) Pulse Ox O2 Delivery O2 Flow Rate FiO2 03/19/20 12:34 86 03/19/20 12:00 Mechanical Ventilator 03/19/20 12:00 98.1 16 104/57 (73) 100 03/19/20 12:00 50 Laboratory Tests Test 03/18/20 17:17 03/19/20 00:44 03/19/20 03:16 03/19/20 05:13 POC Whole Blood Glucose 191 MG/DL (74-106) H 141 MG/DL (74-106) H 146 MG/DL (74-106) H White Blood Count 16.8 K/UL (4.8-10.8) H Red Blood Count 3.67 M/UL (4.20-5.40) L Hemoglobin 10.1 G/DL (12.0-16.0) L Hematocrit 34.6 % (37.0-47.0) L Mean Corpuscular Volume 94 FL (80-99) Mean Corpuscular Hemoglobin 27.4 PG (27.0-31.0) Mean Corpuscular Hemoglobin Concent 29.1 G/DL (32.0-36.0) L Red Cell Distribution Width 17.6 % (11.6-14.8) H Platelet Count 635 K/UL (150-450) H Mean Platelet Volume 7.2 FL (6.5-10.1) Neutrophils (%) (Auto) 76.4 % (45.0-75.0) H Lymphocytes (%) (Auto) 11.4 % (20.0-45.0) L Monocytes (%) (Auto) 3.5 % (1.0-10.0) Eosinophils (%) (Auto) 8.2 % (0.0-3.0) H Basophils (%) (Auto) 0.5 % (0.0-2.0) Test 03/19/20 06:29 03/19/20 10:28 03/19/20 12:18 Sodium Level 150 MMOL/L (136-145) H Potassium Level 4.9 MMOL/L (3.5-5.1) Chloride Level 116 MMOL/L (98-107) H Carbon Dioxide Level 29 MMOL/L (21-32) Anion Gap 5 mmol/L (5-15) Blood Urea Nitrogen 25 mg/dL (7-18) H Creatinine 0.8 MG/DL (0.55-1.30) Estimat Glomerular Filtration Rate > 60 mL/min (>60) Glucose Level 172 MG/DL (74-106) H Calcium Level 8.5 MG/DL (8.5-10.1) Arterial Blood pH 7.401 (7.350-7.450) Arterial Blood Partial Pressure CO2 46.4 mmHg (35.0-45.0) H Arterial Blood Partial Pressure O2 248.0 mmHg (75.0-100.0) H Arterial Blood HCO3 28.2 mmol/L (22.0-26.0) H Arterial Blood Oxygen Saturation 99.3 % (95-100) Arterial Blood Base Excess 2.9 (-2-2) H Mukul Test Positive POC Whole Blood Glucose Pending Intake and Output 03/18/20 03/19/20 19:00 07:00 Intake Total 1131.66 ml 1080 ml Output Total 1000 ml Balance 1131.66 ml 80 ml Free Water 120 ml 200 ml IV Total 531.66 ml 220 ml Tube Feeding 480 ml 660 ml Output Urine Total 1000 ml Objective PHYSICAL EXAMINATION: GENERAL: The patient is a thin-appearing female who is intubated and nonverbal. HEENT: Eyes, pupils are equal and responsive to light and accommodation. Extraocular movements are intact. NECK: Supple without lymphadenopathy. Tracheostomy is in place. CHEST: Mech vent; Diffuse wheezes bilaterally without rhonchi. CARDIOVASCULAR: Tachycardic, regular rhythm. S1, S2 are normal without murmurs, rubs, or gallops. ABDOMEN: Soft, nontender, and nondistended. Positive bowel sounds. No evidence of hepatosplenomegaly. Currently, no rebound or guarding noted. EXTREMITIES: Negative for clubbing, cyanosis, or edema. RECTAL/GENITAL: Not performed. NEUROLOGIC: Unable to assess. chest x-ray revealed left lower lobe consolidation consistent with pneumonia Assessment/Plan Assessment/Plan ASSESSMENT: This is a 74-year-old female. 1. Left lower lobe pneumonia. 2. Respiratory failure. 3. Hypernatremia. 4. Renal failure. 5. Hypoxemia. 6. Tracheostomy dependence. 7. Chronic obstructive pulmonary disease. 8. Diabetes type 2. 9. Parkinson disease. 10. Gout. 11. Glaucoma. 12. Sacral decubitus ulcer stage IV. 13. History of intracranial hemorrhage. 14. Hydrocephalus. 15. sepsis=MRSA 16. UTI=MDR acenitobacter TREATMENT: 1. Left lower lobe pneumonia/respiratory failure/sepsis. Pulmonary consultation =Dr. Patti Matta. ABX= vancomycin and zosyn Infectious disease=Dr. Cruz. We will follow recommendations of Infectious Disease and Pulmonary. 2. Hypernatremia. Hypernatremia may be secondary to renal failure versus dehydration. Nephrology consultation =. 3. Renal failure nephrology consultation =Dr. Huntley. 4. Tracheostomy dependence. 5. Chronic obstructive pulmonary disease. 6. Diabetes type 2. NovoLog sliding scale has been instituted. 7. Parkinson disease. 8. Gout. Continue allopurinol as above. 9. Glaucoma. 10. Sacral decubitus ulcer stage IV. A general surgery consultation has been obtained with Dr. Chris Hunter. 11. History of intracranial hemorrhage. 12. Await DEBBIE; cardiology=Piyush Westfall MD Mar 19, 2020 15:38
[2020-03-19 16:00] VITALS: BP 121/66
--- NOTE | 2020-03-19 16:00 | NUR ---
NURSE NOTES: Bed bath given to the patient. The patient tolerated well. Tolerating vent setting and tube feeding well. Will closely monitor the patient. Will continue plan of care.
--- NOTE | 2020-03-19 17:33 | Surgery Progress Note ---
Surgery Progress Note Subjective Additional Comments wbc trending down no n/v comfortable labs noted Objective Last 24 Hour Vital Signs Date Time Temp Pulse Resp B/P (MAP) Pulse Ox O2 Delivery O2 Flow Rate FiO2 03/19/20 16:29 87 03/19/20 16:00 99.1 96 16 121/66 (84) 100 03/19/20 16:00 Mechanical Ventilator 03/19/20 16:00 50 03/19/20 15:35 101 25 50 03/19/20 12:34 86 03/19/20 12:00 Mechanical Ventilator 03/19/20 12:00 98.1 91 16 104/57 (73) 100 03/19/20 12:00 50 03/19/20 11:00 50 03/19/20 10:40 88 23 50 03/19/20 09:25 99.6 03/19/20 08:53 94 119/73 03/19/20 08:35 82 03/19/20 08:00 60 03/19/20 08:00 Mechanical Ventilator 03/19/20 08:00 101.5 94 16 119/73 (88) 100 03/19/20 07:16 97 22 60 03/19/20 04:00 99.7 92 20 113/61 (78) 100 03/19/20 04:00 Mechanical Ventilator 03/19/20 04:00 75 03/19/20 03:47 93 03/19/20 02:40 92 24 75 03/19/20 00:00 Mechanical Ventilator 03/19/20 00:00 97.5 96 22 120/69 (86) 100 03/19/20 00:00 75 03/18/20 23:34 95 03/18/20 23:26 101 28 75 03/18/20 22:38 99.5 03/18/20 20:00 75 03/18/20 20:00 101.8 102 20 110/64 (79) 100 03/18/20 19:32 105 03/18/20 19:00 102 20 75 I&O Intake and Output 03/18/20 03/19/20 19:00 07:00 Intake Total 1131.66 ml 1080 ml Output Total 1000 ml Balance 1131.66 ml 80 ml Free Water 120 ml 200 ml IV Total 531.66 ml 220 ml Tube Feeding 480 ml 660 ml Output Urine Total 1000 ml Dressing: saturated Cardiovascular: RSR Respiratory: decreased breath sounds Abdomen: non-tender, present bowel sounds Extremities: no tenderness, no cyanosis Laboratory Tests Test 03/19/20 00:44 03/19/20 03:16 03/19/20 05:13 03/19/20 06:29 POC Whole Blood Glucose 141 MG/DL (74-106) H 146 MG/DL (74-106) H White Blood Count 16.8 K/UL (4.8-10.8) H Red Blood Count 3.67 M/UL (4.20-5.40) L Hemoglobin 10.1 G/DL (12.0-16.0) L Hematocrit 34.6 % (37.0-47.0) L Mean Corpuscular Volume 94 FL (80-99) Mean Corpuscular Hemoglobin 27.4 PG (27.0-31.0) Mean Corpuscular Hemoglobin Concent 29.1 G/DL (32.0-36.0) L Red Cell Distribution Width 17.6 % (11.6-14.8) H Platelet Count 635 K/UL (150-450) H Mean Platelet Volume 7.2 FL (6.5-10.1) Neutrophils (%) (Auto) 76.4 % (45.0-75.0) H Lymphocytes (%) (Auto) 11.4 % (20.0-45.0) L Monocytes (%) (Auto) 3.5 % (1.0-10.0) Eosinophils (%) (Auto) 8.2 % (0.0-3.0) H Basophils (%) (Auto) 0.5 % (0.0-2.0) Sodium Level 150 MMOL/L (136-145) H Potassium Level 4.9 MMOL/L (3.5-5.1) Chloride Level 116 MMOL/L (98-107) H Carbon Dioxide Level 29 MMOL/L (21-32) Anion Gap 5 mmol/L (5-15) Blood Urea Nitrogen 25 mg/dL (7-18) H Creatinine 0.8 MG/DL (0.55-1.30) Estimat Glomerular Filtration Rate > 60 mL/min (>60) Glucose Level 172 MG/DL (74-106) H Calcium Level 8.5 MG/DL (8.5-10.1) Test 03/19/20 10:28 03/19/20 12:18 03/19/20 17:17 Arterial Blood pH 7.401 (7.350-7.450) Arterial Blood Partial Pressure CO2 46.4 mmHg (35.0-45.0) H Arterial Blood Partial Pressure O2 248.0 mmHg (75.0-100.0) H Arterial Blood HCO3 28.2 mmol/L (22.0-26.0) H Arterial Blood Oxygen Saturation 99.3 % (95-100) Arterial Blood Base Excess 2.9 (-2-2) H Mukul Test Positive POC Whole Blood Glucose Pending 151 MG/DL (74-106) H Plan Problems: (1) Hypernatremia (2) Sepsis (3) UTI (urinary tract infection) (4) Stage 4 decubitus ulcer Assessment & Plan: Stage 4 ulcer on admission. macerated edges. serous drainage. foul odor. no active infection Tx plan: wash with NS. apply therahoney gauze and dressing daily change prn saturation CT noted. osteo in sacrum cont abx osteo chronic will monitor and asses if debridement needed ABDOMEN: Liver: Unremarkable. No mass. Gallbladder and bile ducts: Unremarkable. No calcified stones. No ductal dilation. Pancreas: Unremarkable. No mass. No ductal dilation. Spleen: Spleen is small. Adrenals: Unremarkable. No mass. Kidneys and ureters: Renal cysts and subcentimeter low-attenuation foci, too small to characterize. No hydronephrosis. Stomach and bowel: Unremarkable. No obstruction. No mucosal thickening. PELVIS: Appendix: No findings to suggest acute appendicitis. Bladder: Bladder wall thickening. Foci of gas in the bladder. Correlate for recent instrumentation versus cystitis. Reproductive: Unremarkable as visualized. ABDOMEN and PELVIS: Intraperitoneal space: Unremarkable. No free air. No significant fluid collection. Bones/joints: Sacrococcygeal decubitus ulcers with associated osteomyelitis. There is some underlying bone thinning and sclerosis in the distal sacrum and coccyx underlying the decubitus ulcers. No acute fracture. No dislocation. Soft tissues: Unremarkable. Vasculature: Moderate plaque abdominal aorta and branches. No abdominal aortic aneurysm. Lymph nodes: Unremarkable. No enlarged lymph nodes. Tubes, lines and devices: Gastrostomy tube within the gastric body. IMPRESSION: 1. Sacrococcygeal decubitus ulcers with associated osteomyelitis. 2. Small left pleural effusion. Left lower lobe atelectasis. 3. Bladder wall thickening. Foci of gas in the bladder. Correlate for recent instrumentation versus cystitis. DAILY ESTIMATED NEEDS: Needs based on Advanced wound, critical care, underweight, UPPER LEATHER SORTER TF/ 45.5kg 30-40 kcals/kg 4833-0655 total kcals 1.5-2 g protein/kg 68-91 g total protein 30-40 mL/kg 0652-8612 total fluid mLs NUTRITION DIAGNOSIS: Increased kcal/prot needs R/T underweight status, wound healing as evidenced by pt @83% IBW w/ underweight BMI of 17.2, admitted w/ multiple wounds, including stage 4 sacral wound. CURRENT TF:Glucerna 1.2 @ 45ml/hr x 24 hrs ENTERAL NUTRITION RECOMMENDATIONS: Glucerna 1.2 @ 60ml/hr x 24 hrs to provide 1440ml, 1728kcal, 86g prot, 1159ml free water * Increase goal rate to 60ml/hr x 24 hrs to meet 100% est kcal/prot needs -> 1.9g prot/kg * HOB over 30 degrees/ water flush per MD * add Shen BID ADDITIONAL RECOMMENDATIONS: * Per SNF: HT=64" and PU=946# vs EMR wt of 147lbs -> rec daily calibrated bedscale wt * Wound healing: TF rec @ goal will provide 100% RDI Vit C 500mg BID, ZnSO4 220gm QD x 10 days Shen BID via PEG * Monitor BGs, consider NISS: h/o DM * Monitor lytes, replete as needed (5) Chronic respiratory failure requiring continuous mechanical ventilation through tracheostomy (6) History of intracranial hemorrhage (7) Idiopathic obstructive hydrocephalus (8) Gout (9) Diabetes mellitus (10) Parkinson's disease dementia (11) Acute on chronic respiratory failure (12) Chronic vegetative state (13) Severe protein-calorie malnutrition Assessment & Plan: DAILY ESTIMATED NEEDS: Needs based on Advanced wound, critical care, underweight, UPPER LEATHER SORTER TF/ 45.5kg 30-40 kcals/kg 9836-3203 total kcals 1.5-2 g protein/kg 68-91 g total protein 30-40 mL/kg 9434-7747 total fluid mLs NUTRITION DIAGNOSIS: Increased kcal/prot needs R/T underweight status, wound healing as evidenced by pt @83% IBW w/ underweight BMI of 17.2, admitted w/ multiple wounds, including stage 4 sacral wound. CURRENT TF:Glucerna 1.2 @ 45ml/hr x 24 hrs ENTERAL NUTRITION RECOMMENDATIONS: Glucerna 1.2 @ 60ml/hr x 24 hrs to provide 1440ml, 1728kcal, 86g prot, 1159ml free water * Increase goal rate to 60ml/hr x 24 hrs to meet 100% est kcal/prot needs -> 1.9g prot/kg * HOB over 30 degrees/ water flush per MD * add Shen BID ADDITIONAL RECOMMENDATIONS: * Per SNF: HT=64" and NR=038# vs EMR wt of 147lbs -> rec daily calibrated bedscale wt * Wound healing: TF rec @ goal will provide 100% RDI add Vit C 500mg BID, continue ZnSO4 220gm QD x 10 days Shen BID via PEG * Monitor BGs, consider NISS: h/o DM -> NISS now added * Add probiotics for diarrhea Chris Hunter Mar 19, 2020 17:33
--- NOTE | 2020-03-19 18:00 | NUR ---
NURSE NOTES: BS 151 noted. Novolog administered per protocol. The patient is resting without acute distress or shortness of breath. Tolerating vent setting and tube feeding well. Will closely monitor the patient. Will continue plan of care. Addendum: 03/19/20 at 1842 by Evan Jaramillo RN As the patient accidently removed PIV, new IV inserted on L FA 20G that is intact and patent. Will closely monitor the patient. Will continue plan of care.
--- NOTE | 2020-03-19 18:55 | NUR ---
NURSE HAND-OFF REPORT: Important Events on Shift: Fever, Titration of FiO2 to 50% Patient Status: Stable, Full code Diet: GTF Glucerna 1.2 @ 60mL/hr Pending Orders: DEBBIE 03/20 Pending Results/Labs: N Pending MD notification: N Latest Vital Signs: Temperature 99.1 , Pulse 87 , B/P 121 /66 , Respiratory Rate 16 , O2 SAT 100 , Mechanical Ventilator, O2 Flow Rate . Vital Sign Comment: Stable EKG Rhythm: Sinus Rhythm Rhythm change?: N MD Notified?: N - MD Response: Latest Ochoa Fall Score: 50 Fall Risk: High Risk Safety Measures: Call light Within Reach, Bed Alarm Zone 1, Side Rails Side Rails x3, Bed position Low and Locked. Fall Precautions: Yellow Socks Yellow Gown Door Sign Patient Fall Education Report given to ADILENE Mae. The patient is stable at this time. Endorsed plan of care.
--- NOTE | 2020-03-19 18:56 | NUR ---
NURSE NOTES: received pt from Cynthia HEAD., pt is awake and resting on the bed. pt is obtunded. hall monitor shows SR at this time. vent setting AC 16 TV 400 FIo2 50% p5 no SOB noted. no active bleeding noted at this time. GT site intact, clean, and patent. Glucerna 1.2 @ 60ml/hr is running without residual. supra cath noted, no active bleeding noted. skin alternation noted, dressing site intact, clean, and patent. left FA 20G IV site intact, clean, patent. bed at the lowest position, alarmed, and locked. call light within reach. will continue to monitor pt with plan of care.
[2020-03-19 20:00] VITALS: BP 115/60
--- NOTE | 2020-03-19 20:30 | NUR ---
NURSE NOTES: family at the bedside.
--- NOTE | 2020-03-19 20:40 | NUR ---
NURSE NOTES: pt's daugther spoke with Dr. Lutz regarding DBEBIE procedure tomorrow for the consent. pt is aware of benefits and why doing DEBBIE procedure, but risk will be discuss tommorrow separately and will complete the consent.
--- NOTE | 2020-03-19 22:25 | NUR ---
NURSE NOTES: D5W not given, it says only one Liter to be given. it is already administered in AM today
[2020-03-20] VITALS: BP 110/61
[2020-03-20 03:41] LABS: ANION GAP 3 mmol/L (5-15); BLOOD UREA NITROGEN 26 mg/dL (7-18); CALCIUM 8.7 MG/DL (8.5-10.1); CARBON DIOXIDE 31 MMOL/L (21-32); CHLORIDE 113 MMOL/L (98-107); CREATININE 0.8 MG/DL (0.55-1.30); SODIUM 147 MMOL/L (136-145)
[2020-03-20 03:48] LABS: BASOPHILS % (AUTO) 0.9 % (0.0-2.0); EOSINOPHILS % (AUTO) 7.7 % (0.0-3.0); HEMATOCRIT 32.2 % (37.0-47.0); HEMOGLOBIN 9.6 G/DL (12.0-16.0); LYMPHOCYTES % (AUTO) 14.4 % (20.0-45.0); MEAN CORPUSCULAR VOLUME 92 FL (80-99); MONOCYTES % (AUTO) 4.4 % (1.0-10.0); NEUTROPHILS % (AUTO) 72.7 % (45.0-75.0); PLATELET COUNT 660 K/UL (150-450); RED BLOOD COUNT 3.49 M/UL (4.20-5.40); RED CELL DISTRIBUTION WIDTH 17.9 % (11.6-14.8); WHITE BLOOD COUNT 15.5 K/UL (4.8-10.8)
[2020-03-20 04:00] VITALS: BP 112/70
[2020-03-20] MEDS: NovoLOG Insulin Flexpen SUBQ SCH ×5 (05:23→23:06)
[2020-03-20] MEDS: Piperacillin/Tazobactam 3.375 GM in NS 110 ML IVPB SCH ×3 (05:23→22:38)
--- NOTE | 2020-03-20 07:11 | NUR ---
NURSE HAND-OFF REPORT: Important Events on Shift:[low grade fever, need consent for DEBBIE ] Patient Status: [stable] Diet: [NPO due to procedure] Pending Orders: [n/a] Pending Results/Labs:[n/a] Pending MD notification:[n/a] Latest Vital Signs: Temperature 98.2 , Pulse 88 , B/P 112 /70 , Respiratory Rate 16 , O2 SAT 100 , Mechanical Ventilator, O2 Flow Rate . Vital Sign Comment: [stable] EKG Rhythm: Sinus Rhythm Rhythm change?: N MD Notified?: N - MD Response: Latest Ochoa Fall Score: 50 Fall Risk: High Risk Safety Measures: Call light Within Reach, Bed Alarm Zone 1, Side Rails Side Rails x3, Bed position Low and Locked. Fall Precautions: Yellow Socks Yellow Gown Door Sign Patient Fall Education Report given to [Cynthia RN., Jenniffer RN].
--- NOTE | 2020-03-20 07:30 | NUR ---
NURSE NOTES: Received report from ADILENE Mae. Pt is still obtunded, opening eyes, but not tracking. Communication made by facial expression and body movement. Appears to be in no cardiac/respiratory distress. athletic monitor shows ST with HR of 100s. PT is trach to vent, settings as followed: Portex 7, AC 16, Tv 400, FiO2 50%, PEEP 5. SpO2 100%, tolerating well. GT patent and intact, running glucerna 1.2 at 60cc/hr. No residual noted. Suprapubic catheter intact and draining well by gravity. L FA 20g PIV patent and intact. Skin issues noted and dressing intact. HOb elevated, call light with reach, bed locked and in lowest position. Fall risk and aspiration precaution noted and reinforced. Pending CT no contrast chest and DEBBIE. Will follow up labs and orders. Will closely pt and continue plan of care.
--- NOTE | 2020-03-20 07:36 | Infectious Diseases Prog Note ---
Assessment/Plan 74yo F with: Febrile Leukocytosis, improving Thrombocytosis, increasing Sepsis Left lower lung infiltrate Acute on chronic resp failure SP trach MRSA bacteremia RML cavitation 03/11 BCx +MRSA Resp cx +PsA (S-Zosyn, I-merissa and cefepime) UCx 30-40k ACB (colonizer) COVID rapid Ag neg CXR: Midline tracheostomy. Small left pleural effusion. Hyperinflation with flattening of the diaphragms and emphysema, consistent with COPD. No lobar infiltrate. 03/12 BCx NTD 03/13 C.dif neg 03/13 BCx NTD 03/14 BCx NTD 03/14 CT A/P: 1. Sacrococcygeal decubitus ulcers with associated osteomyelitis. 2. Small left pleural effusion. Left lower lobe atelectasis. 3. Bladder wall thickening. Foci of gas in the bladder. Correlate for recent instrumentation versus cystitis. Lung bases: Small nodular focus of cavitation in the right middle lobe. This may be secondary to infection. Recommend continued follow-up. Emphysematous changes in the lung bases. 1.2 cm nodular focus with some central cavitation in the right middle lobe. Pleural space: Small left pleural effusion. Left lower lobe atelectasis. 03/14 TTE: No vegetations, thickened valves 03/17 CXR: 1. Unchanged tracheostomy. 2. Mildly more pronounced linear interstitial prominence could represent atypical infection or interstitial pulmonary edema in the proper clinical context. 3. Unchanged hyperinflation. 4. Unchanged mild retrocardiac atelectasis without or with consolidation. 03/20 BCx ordered MRSA nares positive VDRF S/p trach/PEG Bed bound Sacral decub ulceration w/ underlying OM Plan: Cont Zosyn #4 for broader coverage given ongoing fever, increasing WBC, ?pna Cont vancomycin #10 for MRSA bacteremia, duration TBD DEBBIE given MRSA bacteremia of community onset without clear source, ordered by Cards CT chest given RML cavitation on CT A/P Repeat BCx given ongoing fevers Repeat sputum cx Exchange SPC if able given ongoing fevers Trend WBC Trend plts Trend temp curve 03/14 SP cefepime #4 Monitor CBC/CMP Monitor temp curve, hemodynamics Monitor resp status D/w RN Thank you for this consult. [facility] will continue to follow. Subjective Allergies: Coded Allergies: No Known Allergies (Unverified , 03/11/20) Tmax 101.5 yesterday morning, consistently febrile per RN WBC 15.5, slightly improving Platelets increasing to 660 NAD on vent Ongoing thick resp and oral secretions SPC hasn't been changed in awhile Still hasn't had DEBBIE Objective Last 24 Hour Vital Signs Date Time Temp Pulse Resp B/P (MAP) Pulse Ox O2 Delivery O2 Flow Rate FiO2 03/20/20 06:30 106 28 50 03/20/20 04:00 50 03/20/20 04:00 98.2 88 16 112/70 (84) 100 03/20/20 04:00 Mechanical Ventilator 03/20/20 03:28 99 03/20/20 02:52 93 25 50 03/20/20 00:10 91 03/20/20 00:00 99.1 95 16 110/61 (77) 100 03/20/20 00:00 Mechanical Ventilator 03/20/20 00:00 50 03/19/20 23:05 98 26 50 03/19/20 20:00 98.1 97 18 115/60 (78) 100 03/19/20 20:00 Mechanical Ventilator 03/19/20 20:00 50 03/19/20 20:00 92 03/19/20 18:55 92 23 50 03/19/20 16:29 87 03/19/20 16:00 99.1 96 16 121/66 (84) 100 03/19/20 16:00 Mechanical Ventilator 03/19/20 16:00 50 03/19/20 15:35 101 25 50 03/19/20 12:34 86 03/19/20 12:00 Mechanical Ventilator 03/19/20 12:00 98.1 91 16 104/57 (73) 100 03/19/20 12:00 50 03/19/20 11:00 50 03/19/20 10:40 88 23 50 03/19/20 09:25 99.6 03/19/20 08:53 94 119/73 03/19/20 08:35 82 03/19/20 08:00 60 03/19/20 08:00 Mechanical Ventilator 03/19/20 08:00 101.5 94 16 119/73 (88) 100 Height (Feet): 5 Height (Inches): 5.00 Weight (Pounds): 147 Gen: NAD in bed HEENT: NCAT, trach CV: RRR Pulm: CTAB Abd: Soft, NTND, +PEG +SPC Ext: No c/c/e Skin: Stage 4 sacral decub ulceration, clean Neuro: Awake, not interactive Laboratory Tests Test 03/19/20 10:28 03/19/20 12:18 03/19/20 17:17 03/20/20 00:12 Arterial Blood pH 7.401 (7.350-7.450) Arterial Blood Partial Pressure CO2 46.4 mmHg (35.0-45.0) H Arterial Blood Partial Pressure O2 248.0 mmHg (75.0-100.0) H Arterial Blood HCO3 28.2 mmol/L (22.0-26.0) H Arterial Blood Oxygen Saturation 99.3 % (95-100) Arterial Blood Base Excess 2.9 (-2-2) H Mukul Test Positive POC Whole Blood Glucose Pending 151 MG/DL (74-106) H 158 MG/DL (74-106) H Test 03/20/20 03:18 03/20/20 05:21 White Blood Count 15.5 K/UL (4.8-10.8) H Red Blood Count 3.49 M/UL (4.20-5.40) L Hemoglobin 9.6 G/DL (12.0-16.0) L Hematocrit 32.2 % (37.0-47.0) L Mean Corpuscular Volume 92 FL (80-99) Mean Corpuscular Hemoglobin 27.6 PG (27.0-31.0) Mean Corpuscular Hemoglobin Concent 29.9 G/DL (32.0-36.0) L Red Cell Distribution Width 17.9 % (11.6-14.8) H Platelet Count 660 K/UL (150-450) H Mean Platelet Volume 6.5 FL (6.5-10.1) Neutrophils (%) (Auto) 72.7 % (45.0-75.0) Lymphocytes (%) (Auto) 14.4 % (20.0-45.0) L Monocytes (%) (Auto) 4.4 % (1.0-10.0) Eosinophils (%) (Auto) 7.7 % (0.0-3.0) H Basophils (%) (Auto) 0.9 % (0.0-2.0) Sodium Level 147 MMOL/L (136-145) H Potassium Level 5.0 MMOL/L (3.5-5.1) Chloride Level 113 MMOL/L (98-107) H Carbon Dioxide Level 31 MMOL/L (21-32) Anion Gap 3 mmol/L (5-15) L Blood Urea Nitrogen 26 mg/dL (7-18) H Creatinine 0.8 MG/DL (0.55-1.30) Estimat Glomerular Filtration Rate > 60 mL/min (>60) Glucose Level 124 MG/DL (74-106) H Calcium Level 8.7 MG/DL (8.5-10.1) POC Whole Blood Glucose 106 MG/DL (74-106) Current Medications Medications (Trade) Dose Ordered Sig/Zaki Route PRN Reason Start Time Stop Time Status Last Admin Dose Admin Acetaminophen (Tylenol) 650 mg Q6H PRN GT Temp >100.5, Mild Pain 03/11/20 06:30 04/10/20 06:29 03/19/20 22:25 Amlodipine Besylate (Norvasc) 10 mg DAILY GT 03/11/20 09:00 04/10/20 08:59 03/19/20 08:53 Aspirin (ASA) 81 mg DAILY GT 03/11/20 09:00 04/25/20 08:59 03/18/20 08:35 Calcitonin [place] (Miacalcin) 1 sprays DAILY NASAL 03/13/20 11:00 06/11/20 10:59 03/19/20 08:54 Dextrose 1,000 ml @ 100 mls/hr Q10H IV 03/19/20 12:15 04/18/20 12:14 03/19/20 12:24 Dextrose (Dextrose 50%) 25 ml Q30M PRN IV Hypoglycemia 03/13/20 23:30 06/11/20 23:29 Dextrose (Dextrose 50%) 50 ml Q30M PRN IV Hypoglycemia 03/13/20 23:30 06/11/20 23:29 Diphenhydramine HCl (Benadryl) 25 mg Q8H PRN ORAL Itching 03/14/20 15:00 04/13/20 14:59 03/14/20 15:50 Famotidine (Pepcid) 20 mg BID GT 03/18/20 18:00 06/09/20 08:59 03/19/20 17:20 Insulin Aspart (NovoLOG) Q6HR SUBQ 03/14/20 00:00 06/12/20 00:00 03/19/20 17:20 Ondansetron HCl (Zofran) 4 mg Q4H PRN IVP Nausea & Vomiting 03/11/20 06:30 04/10/20 06:29 Piperacillin Sod/ Tazobactam Sod 3.375 gm/Sodium Chloride 110 ml @ 27.5 mls/hr EVERY 8 HOURS IVPB 03/17/20 22:00 03/24/20 21:59 03/20/20 05:23 Vancomycin HCl (Vanco pharmacy to dose) 1 ea DAILY PRN MISC Per rx protocol 03/11/20 06:30 04/10/20 06:29 Vancomycin HCl 500 mg/Sodium Chloride 110 ml @ 110 mls/hr Q12H IVPB 03/17/20 20:00 03/22/20 19:59 03/19/20 19:43 Zinc Sulfate (Zinc Sulfate) 220 mg DAILY ORAL 03/13/20 09:00 03/23/20 08:59 03/19/20 08:54 Shirley Villegas M.D. Mar 20, 2020 07:36
[2020-03-20 08:00] VITALS: BP 124/74
--- NOTE | 2020-03-20 08:00 | NUR ---
NURSE NOTES: Morning assessment and vitals taken. Pt is in stable condition, will continue plan of care.
[2020-03-20] MEDS: Vancomycin 500 MG in NS 110 ML IVPB SCH ×2 (08:35→20:49)
[2020-03-20] MEDS: Zinc Sulfate 220mg ORAL SCH (08:35)
[2020-03-20] MEDS: Aspirin Baby 81mg GT SCH (08:41)
--- NOTE | 2020-03-20 09:29 | NUR ---
RD ASSESSMENT & RECOMMENDATIONS SEE CARE ACTIVITY FOR COMPLETE ASSESSMENT DAILY ESTIMATED NEEDS: Needs based on Advanced wound, critical care, underweight, STATION MANAGER TF/ 45.5kg 30-40 kcals/kg 0473-7874 total kcals 1.5-2 g protein/kg 68-91 g total protein 30-40 mL/kg 3761-7376 total fluid mLs NUTRITION DIAGNOSIS: Increased kcal/prot needs R/T underweight status, wound healing as evidenced by pt @83% IBW w/ underweight BMI of 17.2, admitted w/ multiple wounds, including stage 4 sacral wound. ENTERAL NUTRITION RECOMMENDATIONS: Glucerna 1.2 @ 60ml/hr x 24 hrs to provide 1440ml, 1728kcal, 86g prot, 1159ml free water * Maintain current TF rate as tolerated to meet 100% est kcal/prot needs -> 1.9g prot/kg. * HOB over 30 degrees/ water flush per MD * add Shen BID ADDITIONAL RECOMMENDATIONS: * Per SNF: HT=64" and TL=828# vs EMR wt of 147lbs -> Recalibrate bed scale for accurate CBW * Wound healing: TF rec @ goal will provide 100% RDI add Vit C 500mg BID, continue ZnSO4 220gm QD x 10 days Shen BID via PEG * Monitor BGs, consider NISS: h/o DM -> NISS now added * Add probiotics for diarrhea
--- NOTE | 2020-03-20 09:52 | Pulmonolgy Critical Care Note ---
Critical Care - Asmt/Plan Problems: (1) Acute on chronic respiratory failure (2) Staphylococcus aureus bacteremia (3) Sepsis (4) Chronic respiratory failure requiring continuous mechanical ventilation through tracheostomy (5) Stage 4 decubitus ulcer (6) Diabetes mellitus (7) Parkinson's disease dementia (8) Gout (9) Idiopathic obstructive hydrocephalus (10) Severe protein-calorie malnutrition (11) History of intracranial hemorrhage (12) Chronic vegetative state Respiratory: monitor respiratory rate, adjust FIO2, CXR Cardiac: continue pressors, continue to monitor HR/BP Renal: F/U I&O, keep IV fluid, check electrolytes Infectious Disease: check cultures, continue antibiotics Gastrointestinal: continue feedings/current rate Endocrine: monitor blood sugar, continue sliding scale insulin Hematologic: monitor H/H, transfuse if hgb<8.5 Neurologic: PRN Ativan, PRN Morphine, keep patient comfortable Affect: PRN ativan Disposition: keep in ICU Time Spent (Minutes): 40 Notes Reviewed: head greenskeeper, cardio, renal Discussed with: nurses, consultants, patient case coordinatorinclusion manager - Objective Last 24 Hour Vital Signs Date Time Temp Pulse Resp B/P (MAP) Pulse Ox O2 Delivery O2 Flow Rate FiO2 03/20/20 08:35 106 124/74 03/20/20 06:30 106 28 50 03/20/20 04:00 50 03/20/20 04:00 98.2 88 16 112/70 (84) 100 03/20/20 04:00 Mechanical Ventilator 03/20/20 03:28 99 03/20/20 02:52 93 25 50 03/20/20 00:10 91 03/20/20 00:00 99.1 95 16 110/61 (77) 100 03/20/20 00:00 Mechanical Ventilator 03/20/20 00:00 50 03/19/20 23:05 98 26 50 03/19/20 20:00 98.1 97 18 115/60 (78) 100 03/19/20 20:00 Mechanical Ventilator 03/19/20 20:00 50 03/19/20 20:00 92 03/19/20 18:55 92 23 50 03/19/20 16:29 87 03/19/20 16:00 99.1 96 16 121/66 (84) 100 03/19/20 16:00 Mechanical Ventilator 03/19/20 16:00 50 03/19/20 15:35 101 25 50 03/19/20 12:34 86 03/19/20 12:00 Mechanical Ventilator 03/19/20 12:00 98.1 91 16 104/57 (73) 100 03/19/20 12:00 50 03/19/20 11:00 50 03/19/20 10:40 88 23 50 Status: awake Condition: critical, improving Neck: full ROM Lungs: rales, rhonchi Heart: HR/BP stable Abdomen: soft, active bowel sounds Extremities: no C/C/E Accucheck: 106 Critical Care - Subjective ROS Limited/Unobtainable: Yes Condition: critical EKG Rhythm: Sinus Rhythm FI02: 50 Vent Support Breath Rate: 16 Vent Support Mode: AC Vent Tidal Volume: 400 Sputum Amount: Small PEEP: 5.0 PIP: 22 Tube Feeding Amount: 60 I&O: Intake and Output 03/19/20 03/20/20 19:00 07:00 Intake Total 1020 ml 1367.5 ml Output Total 600 ml 1300 ml Balance 420 ml 67.5 ml Free Water 200 ml 200 ml IV Total 100 ml 447.5 ml Tube Feeding 720 ml 720 ml Output Urine Total 600 ml 1300 ml # Bowel Movements 1 CXR: Mildly more pronounced linear interstitial prominence could represent atypical infection or interstitial pulmonary edema in the proper clinical context. Labs: Laboratory Tests Test 03/19/20 10:28 03/19/20 12:18 03/19/20 17:17 03/20/20 00:12 Arterial Blood pH 7.401 (7.350-7.450) Arterial Blood Partial Pressure CO2 46.4 mmHg (35.0-45.0) H Arterial Blood Partial Pressure O2 248.0 mmHg (75.0-100.0) H Arterial Blood HCO3 28.2 mmol/L (22.0-26.0) H Arterial Blood Oxygen Saturation 99.3 % (95-100) Arterial Blood Base Excess 2.9 (-2-2) H Mukul Test Positive POC Whole Blood Glucose Pending 151 MG/DL (74-106) H 158 MG/DL (74-106) H Test 03/20/20 03:18 03/20/20 05:21 White Blood Count 15.5 K/UL (4.8-10.8) H Red Blood Count 3.49 M/UL (4.20-5.40) L Hemoglobin 9.6 G/DL (12.0-16.0) L Hematocrit 32.2 % (37.0-47.0) L Mean Corpuscular Volume 92 FL (80-99) Mean Corpuscular Hemoglobin 27.6 PG (27.0-31.0) Mean Corpuscular Hemoglobin Concent 29.9 G/DL (32.0-36.0) L Red Cell Distribution Width 17.9 % (11.6-14.8) H Platelet Count 660 K/UL (150-450) H Mean Platelet Volume 6.5 FL (6.5-10.1) Neutrophils (%) (Auto) 72.7 % (45.0-75.0) Lymphocytes (%) (Auto) 14.4 % (20.0-45.0) L Monocytes (%) (Auto) 4.4 % (1.0-10.0) Eosinophils (%) (Auto) 7.7 % (0.0-3.0) H Basophils (%) (Auto) 0.9 % (0.0-2.0) Sodium Level 147 MMOL/L (136-145) H Potassium Level 5.0 MMOL/L (3.5-5.1) Chloride Level 113 MMOL/L (98-107) H Carbon Dioxide Level 31 MMOL/L (21-32) Anion Gap 3 mmol/L (5-15) L Blood Urea Nitrogen 26 mg/dL (7-18) H Creatinine 0.8 MG/DL (0.55-1.30) Estimat Glomerular Filtration Rate > 60 mL/min (>60) Glucose Level 124 MG/DL (74-106) H Calcium Level 8.7 MG/DL (8.5-10.1) POC Whole Blood Glucose 106 MG/DL (74-106) Patti Matta MD Mar 20, 2020 09:52
--- NOTE | 2020-03-20 10:00 | NUR ---
NURSE NOTES: Morning medications given. Tolerated well. ASA on hold due to downtrending Hgb and + ObStool. Will continue plan of care.
--- NOTE | 2020-03-20 11:22 | NUR ---
NURSE NOTES: Dr. Villegas at bedside, assessing pt. Notified ST and consistent fever. Dr Villegas ordered sputum culture and replacement of suprapubic catheter. Dr. Matta notified of Dr. Villegas's order for suprapubic catheter replacement. Awaiting Urology consult. Will continue plan of care.
[2020-03-20 12:00] VITALS: BP 127/77
--- NOTE | 2020-03-20 12:00 | Nephrology Progress Note ---
Assessment/Plan Problem List: (1) Hypercalcemia (2) Hypernatremia (3) Sepsis (4) UTI (urinary tract infection) (5) Stage 4 decubitus ulcer (6) Acute on chronic respiratory failure (7) Chronic vegetative state (8) Severe protein-calorie malnutrition Assessment Azotemia and hypernatremia indicative of severe dehydration and free water deficit Acute on chronic respiratory failure, on mechanical ventilation Severe underlying anemia Sepsis Stage IV decubitus Idiopathic obstructive hydrocephalus, history of intracranial hemorrhage Diabetes mellitus Parkinson's disease, dementia Protein calorie malnutrition Plan March 20: Labs reviewed. Serum sodium lower 147. Serum calcium stable. Continue as is. March 19: Labs reviewed. Serum sodium unchanged at 150. Another liter of D5W ordered. Serum calcium stable. Continue as is. March 18: Labs reviewed. Serum sodium 150. 1 L of D5W IV ordered. Serum calcium stable. Continue as is. March 17: Labs reviewed. Renal parameters stable. Continue to watch serum calcium. Continue per consultants. March 16: Labs reviewed. Serum calcium stable. Medication list reviewed. Abnormal electrolyte addressed. Continue current management. March 15: Labs reviewed. Serum calcium lowering. Abnormal electrolytes addressed. Continue per consultants. March 14: Labs reviewed. Status quo. Serum calcium lowering. Magnesium and potassium supplement ordered. Continue per current treatment plan. March 13: 1 dose of pamidronate 60 mg for high calcium IV ordered. Labs reviewed. Medication list reviewed. Electrolytes improving. Hemoglobin higher after transfusion. Nasal calcitonin initiated March 12: D5W at 75 cc an hour Monitor electrolytes Monitor hemoglobin hematocrit Gastric support Consider transfusion Continue per orders Parameters for blood pressure medication Antibiotics per ID Subjective ROS Limited/Unobtainable: Yes Objective Objective Last 24 Hour Vital Signs Date Time Temp Pulse Resp B/P (MAP) Pulse Ox O2 Delivery O2 Flow Rate FiO2 03/20/20 08:35 106 124/74 03/20/20 08:00 Mechanical Ventilator 03/20/20 08:00 50 03/20/20 08:00 98.4 106 16 124/74 (91) 100 03/20/20 07:39 106 03/20/20 06:30 106 28 50 03/20/20 04:00 50 03/20/20 04:00 98.2 88 16 112/70 (84) 100 03/20/20 04:00 Mechanical Ventilator 03/20/20 03:28 99 03/20/20 02:52 93 25 50 03/20/20 00:10 91 03/20/20 00:00 99.1 95 16 110/61 (77) 100 03/20/20 00:00 Mechanical Ventilator 03/20/20 00:00 50 03/19/20 23:05 98 26 50 03/19/20 20:00 98.1 97 18 115/60 (78) 100 03/19/20 20:00 Mechanical Ventilator 03/19/20 20:00 50 03/19/20 20:00 92 03/19/20 18:55 92 23 50 03/19/20 16:29 87 03/19/20 16:00 99.1 96 16 121/66 (84) 100 03/19/20 16:00 Mechanical Ventilator 03/19/20 16:00 50 03/19/20 15:35 101 25 50 03/19/20 12:34 86 03/19/20 12:00 Mechanical Ventilator 03/19/20 12:00 98.1 91 16 104/57 (73) 100 03/19/20 12:00 50 Intake and Output 03/19/20 03/20/20 19:00 07:00 Intake Total 1020 ml 1367.5 ml Output Total 600 ml 1300 ml Balance 420 ml 67.5 ml Free Water 200 ml 200 ml IV Total 100 ml 447.5 ml Tube Feeding 720 ml 720 ml Output Urine Total 600 ml 1300 ml # Bowel Movements 1 Current Medications Medications (Trade) Dose Ordered Sig/Zaki Route PRN Reason Start Time Stop Time Status Last Admin Dose Admin Acetaminophen (Tylenol) 650 mg Q6H PRN GT Temp >100.5, Mild Pain 03/11/20 06:30 04/10/20 06:29 03/19/20 22:25 Amlodipine Besylate (Norvasc) 5 mg DAILY GT 03/20/20 09:00 04/19/20 08:59 03/20/20 08:35 Aspirin (ASA) 81 mg DAILY GT 03/11/20 09:00 04/25/20 08:59 03/18/20 08:35 Calcitonin [place] (Miacalcin) 1 sprays DAILY NASAL 03/13/20 11:00 06/11/20 10:59 03/20/20 09:49 Dextrose (Dextrose 50%) 25 ml Q30M PRN IV Hypoglycemia 03/13/20 23:30 06/11/20 23:29 Dextrose (Dextrose 50%) 50 ml Q30M PRN IV Hypoglycemia 03/13/20 23:30 06/11/20 23:29 Diphenhydramine HCl (Benadryl) 25 mg Q8H PRN ORAL Itching 03/14/20 15:00 04/13/20 14:59 03/14/20 15:50 Famotidine (Pepcid) 20 mg BID GT 03/18/20 18:00 06/09/20 08:59 03/20/20 08:35 Insulin Aspart (NovoLOG) Q6HR SUBQ 03/14/20 00:00 06/12/20 00:00 03/19/20 17:20 Ondansetron HCl (Zofran) 4 mg Q4H PRN IVP Nausea & Vomiting 03/11/20 06:30 04/10/20 06:29 Piperacillin Sod/ Tazobactam Sod 3.375 gm/Sodium Chloride 110 ml @ 27.5 mls/hr EVERY 8 HOURS IVPB 03/17/20 22:00 03/24/20 21:59 03/20/20 05:23 Vancomycin HCl (Vanco pharmacy to dose) 1 ea DAILY PRN MISC Per rx protocol 03/11/20 06:30 04/10/20 06:29 Vancomycin HCl 500 mg/Sodium Chloride 110 ml @ 110 mls/hr Q12H IVPB 03/17/20 20:00 03/22/20 19:59 03/20/20 08:35 Zinc Sulfate (Zinc Sulfate) 220 mg DAILY ORAL 03/13/20 09:00 03/23/20 08:59 03/20/20 08:35 Laboratory Tests 03/19/20 12:18: POC Whole Blood Glucose [Pending] 03/19/20 17:17: POC Whole Blood Glucose 151H 03/20/20 00:12: POC Whole Blood Glucose 158H 03/20/20 03:18: White Blood Count 15.5H, Red Blood Count 3.49L, Hemoglobin 9.6L, Hematocrit 32.2L, Mean Corpuscular Volume 92, Mean Corpuscular Hemoglobin 27.6, Mean Corpuscular Hemoglobin Concent 29.9L, Red Cell Distribution Width 17.9H, Platelet Count 660H, Mean Platelet Volume 6.5, Neutrophils (%) (Auto) 72.7, Lymphocytes (%) (Auto) 14.4L, Monocytes (%) (Auto) 4.4, Eosinophils (%) (Auto) 7.7H, Basophils (%) (Auto) 0.9, Sodium Level 147H, Potassium Level 5.0, Chloride Level 113H, Carbon Dioxide Level 31, Anion Gap 3L, Blood Urea Nitrogen 26H, Creatinine 0.8, Estimat Glomerular Filtration Rate > 60, Glucose Level 124H, Calcium Level 8.7 03/20/20 05:21: POC Whole Blood Glucose 106 Height (Feet): 5 Height (Inches): 5.00 Weight (Pounds): 147 General Appearance: no apparent distress EENT: other - Trach to vent Cardiovascular: tachycardia Respiratory/Chest: decreased breath sounds Abdomen: soft Mathew Huntley MD Mar 20, 2020 12:00
--- NOTE | 2020-03-20 12:00 | NUR ---
NURSE NOTES: BG 181 noted, administered novolog per protocol. Pt stable at this time. Will continue plan of care.
--- NOTE | 2020-03-20 12:01 | NUR ---
RADIOLOGY DEPT., CHEST X-RAY DONE.-P.DYE
--- NOTE | 2020-03-20 12:51 | NUR ---
NURSE NOTES: Dr. Matta contacted to inquire about urology consult. Awaiting response. Will continue to monitor.
--- NOTE | 2020-03-20 13:04 | NUR ---
CARDIOLOGY DEBBIE is scheduled tomorrow Friday at 11:30. Need NPO after mid-night, good IV, and consent for Dr. Ramos to perform DEBBIE.
--- NOTE | 2020-03-20 13:49 | Surgery Progress Note ---
Surgery Progress Note Subjective Additional Comments no acute events comfortable stable wbc trending down exam stable Objective Last 24 Hour Vital Signs Date Time Temp Pulse Resp B/P (MAP) Pulse Ox O2 Delivery O2 Flow Rate FiO2 03/20/20 12:00 50 03/20/20 12:00 97.0 98 16 127/77 (94) 100 03/20/20 12:00 Mechanical Ventilator 03/20/20 11:54 97 03/20/20 10:31 94 26 50 03/20/20 08:35 106 124/74 03/20/20 08:00 Mechanical Ventilator 03/20/20 08:00 50 03/20/20 08:00 98.4 106 16 124/74 (91) 100 03/20/20 07:39 106 03/20/20 06:30 106 28 50 03/20/20 04:00 50 03/20/20 04:00 98.2 88 16 112/70 (84) 100 03/20/20 04:00 Mechanical Ventilator 03/20/20 03:28 99 03/20/20 02:52 93 25 50 03/20/20 00:10 91 03/20/20 00:00 99.1 95 16 110/61 (77) 100 03/20/20 00:00 Mechanical Ventilator 03/20/20 00:00 50 03/19/20 23:05 98 26 50 03/19/20 20:00 98.1 97 18 115/60 (78) 100 03/19/20 20:00 Mechanical Ventilator 03/19/20 20:00 50 03/19/20 20:00 92 03/19/20 18:55 92 23 50 03/19/20 16:29 87 03/19/20 16:00 99.1 96 16 121/66 (84) 100 03/19/20 16:00 Mechanical Ventilator 03/19/20 16:00 50 03/19/20 15:35 101 25 50 I&O Intake and Output 03/19/20 03/20/20 19:00 07:00 Intake Total 1020 ml 1367.5 ml Output Total 600 ml 1300 ml Balance 420 ml 67.5 ml Free Water 200 ml 200 ml IV Total 100 ml 447.5 ml Tube Feeding 720 ml 720 ml Output Urine Total 600 ml 1300 ml # Bowel Movements 1 Dressing: saturated Cardiovascular: RSR Respiratory: decreased breath sounds Abdomen: non-tender, present bowel sounds, non-distended Extremities: no tenderness, no cyanosis Laboratory Tests Test 03/19/20 17:17 03/20/20 00:12 03/20/20 03:18 03/20/20 05:21 POC Whole Blood Glucose 151 MG/DL (74-106) H 158 MG/DL (74-106) H 106 MG/DL (74-106) White Blood Count 15.5 K/UL (4.8-10.8) H Red Blood Count 3.49 M/UL (4.20-5.40) L Hemoglobin 9.6 G/DL (12.0-16.0) L Hematocrit 32.2 % (37.0-47.0) L Mean Corpuscular Volume 92 FL (80-99) Mean Corpuscular Hemoglobin 27.6 PG (27.0-31.0) Mean Corpuscular Hemoglobin Concent 29.9 G/DL (32.0-36.0) L Red Cell Distribution Width 17.9 % (11.6-14.8) H Platelet Count 660 K/UL (150-450) H Mean Platelet Volume 6.5 FL (6.5-10.1) Neutrophils (%) (Auto) 72.7 % (45.0-75.0) Lymphocytes (%) (Auto) 14.4 % (20.0-45.0) L Monocytes (%) (Auto) 4.4 % (1.0-10.0) Eosinophils (%) (Auto) 7.7 % (0.0-3.0) H Basophils (%) (Auto) 0.9 % (0.0-2.0) Sodium Level 147 MMOL/L (136-145) H Potassium Level 5.0 MMOL/L (3.5-5.1) Chloride Level 113 MMOL/L (98-107) H Carbon Dioxide Level 31 MMOL/L (21-32) Anion Gap 3 mmol/L (5-15) L Blood Urea Nitrogen 26 mg/dL (7-18) H Creatinine 0.8 MG/DL (0.55-1.30) Estimat Glomerular Filtration Rate > 60 mL/min (>60) Glucose Level 124 MG/DL (74-106) H Calcium Level 8.7 MG/DL (8.5-10.1) Test 03/20/20 12:04 POC Whole Blood Glucose 181 MG/DL (74-106) H Plan Problems: (1) Hypernatremia (2) Sepsis (3) UTI (urinary tract infection) (4) Stage 4 decubitus ulcer Assessment & Plan: Stage 4 ulcer on admission. macerated edges. serous drainage. foul odor. no active infection Tx plan: wash with NS. apply therahoney gauze and dressing daily change prn saturation CT noted. osteo in sacrum cont abx osteo chronic will monitor and asses if debridement needed ABDOMEN: Liver: Unremarkable. No mass. Gallbladder and bile ducts: Unremarkable. No calcified stones. No ductal dilation. Pancreas: Unremarkable. No mass. No ductal dilation. Spleen: Spleen is small. Adrenals: Unremarkable. No mass. Kidneys and ureters: Renal cysts and subcentimeter low-attenuation foci, too small to characterize. No hydronephrosis. Stomach and bowel: Unremarkable. No obstruction. No mucosal thickening. PELVIS: Appendix: No findings to suggest acute appendicitis. Bladder: Bladder wall thickening. Foci of gas in the bladder. Correlate for recent instrumentation versus cystitis. Reproductive: Unremarkable as visualized. ABDOMEN and PELVIS: Intraperitoneal space: Unremarkable. No free air. No significant fluid collection. Bones/joints: Sacrococcygeal decubitus ulcers with associated osteomyelitis. There is some underlying bone thinning and sclerosis in the distal sacrum and coccyx underlying the decubitus ulcers. No acute fracture. No dislocation. Soft tissues: Unremarkable. Vasculature: Moderate plaque abdominal aorta and branches. No abdominal aortic aneurysm. Lymph nodes: Unremarkable. No enlarged lymph nodes. Tubes, lines and devices: Gastrostomy tube within the gastric body. IMPRESSION: 1. Sacrococcygeal decubitus ulcers with associated osteomyelitis. 2. Small left pleural effusion. Left lower lobe atelectasis. 3. Bladder wall thickening. Foci of gas in the bladder. Correlate for recent instrumentation versus cystitis. DAILY ESTIMATED NEEDS: Needs based on Advanced wound, critical care, underweight, EDUCATION ADVISER TF/ 45.5kg 30-40 kcals/kg 6853-6942 total kcals 1.5-2 g protein/kg 68-91 g total protein 30-40 mL/kg 6141-9040 total fluid mLs NUTRITION DIAGNOSIS: Increased kcal/prot needs R/T underweight status, wound healing as evidenced by pt @83% IBW w/ underweight BMI of 17.2, admitted w/ multiple wounds, including stage 4 sacral wound. CURRENT TF:Glucerna 1.2 @ 45ml/hr x 24 hrs ENTERAL NUTRITION RECOMMENDATIONS: Glucerna 1.2 @ 60ml/hr x 24 hrs to provide 1440ml, 1728kcal, 86g prot, 1159ml free water * Increase goal rate to 60ml/hr x 24 hrs to meet 100% est kcal/prot needs -> 1.9g prot/kg * HOB over 30 degrees/ water flush per MD * add Shen BID ADDITIONAL RECOMMENDATIONS: * Per SNF: HT=64" and QZ=084# vs EMR wt of 147lbs -> rec daily calibrated bedscale wt * Wound healing: TF rec @ goal will provide 100% RDI Vit C 500mg BID, ZnSO4 220gm QD x 10 days Shen BID via PEG * Monitor BGs, consider NISS: h/o DM * Monitor lytes, replete as needed (5) Chronic respiratory failure requiring continuous mechanical ventilation through tracheostomy (6) History of intracranial hemorrhage (7) Idiopathic obstructive hydrocephalus (8) Gout (9) Diabetes mellitus (10) Parkinson's disease dementia (11) Acute on chronic respiratory failure (12) Chronic vegetative state (13) Severe protein-calorie malnutrition Assessment & Plan: DAILY ESTIMATED NEEDS: Needs based on Advanced wound, critical care, underweight, EDUCATION ADVISER TF/ 45.5kg 30-40 kcals/kg 0763-3295 total kcals 1.5-2 g protein/kg 68-91 g total protein 30-40 mL/kg 0158-2428 total fluid mLs NUTRITION DIAGNOSIS: Increased kcal/prot needs R/T underweight status, wound healing as evidenced by pt @83% IBW w/ underweight BMI of 17.2, admitted w/ multiple wounds, including stage 4 sacral wound. CURRENT TF:Glucerna 1.2 @ 45ml/hr x 24 hrs ENTERAL NUTRITION RECOMMENDATIONS: Glucerna 1.2 @ 60ml/hr x 24 hrs to provide 1440ml, 1728kcal, 86g prot, 1159ml free water * Increase goal rate to 60ml/hr x 24 hrs to meet 100% est kcal/prot needs -> 1.9g prot/kg * HOB over 30 degrees/ water flush per MD * add Shen BID ADDITIONAL RECOMMENDATIONS: * Per SNF: HT=64" and WA=752# vs EMR wt of 147lbs -> rec daily calibrated bedscale wt * Wound healing: TF rec @ goal will provide 100% RDI add Vit C 500mg BID, continue ZnSO4 220gm QD x 10 days Shen BID via PEG * Monitor BGs, consider NISS: h/o DM -> NISS now added * Add probiotics for diarrhea (14) Hypercalcemia (15) Staphylococcus aureus bacteremia Assessment & Plan: unlikely related to wound checking often to ensure not worsening good local care being provided cont Chris Morel Mar 20, 2020 13:49
--- NOTE | 2020-03-20 14:30 | NUR ---
NURSE NOTES: Pt returned from CT chest WO contrast. Tolerated the procedure well. Vitals upon returning to unit was T 99.1, BP 129/85, HR 108, SpO2 100%. Cooling measures were applied. Will continue plan of care.
--- NOTE | 2020-03-20 14:57 | NUR ---
CASE MANAGEMENT:REVIEW 03/20/20 SI: MRSA SEPSIS TRACH/VENT/GT DEPENDENT 97.0 98 16 127/77 100% ON VENT SUPPORT 50% FIO2 WBC+15.5 IS: IV ZOSYN Q8HRS IV VANCOMYCIN Q12 ZINC GT QD PEPCID GT BID NORVASC GT QD HEPARIN SQ Q12 ASA PO QD : STEP DOWN UNIT DCP: FROM [facility] PLAN: DEBBIE PENDING FOR TOMORROW
[2020-03-20 16:00] VITALS: BP 134/85
--- NOTE | 2020-03-20 16:00 | NUR ---
NURSE NOTES: Bed bath given to pt. Tolerated well. Tolerating vent settings and tube feedings well. Will continue to monitor and continue plan of care.
--- NOTE | 2020-03-20 16:07 | Diagnostic Imaging Report ---
Clinical Indication: Shortness of breath Technique: Spiral acquisitions obtained through the chest. No IV contrast utilized, for referring physician request. Multiplanar reconstructions generated. Total dose length product 198 mGycm. CTDIvol(s) 4 mGy. Dose reduction achieved using automated exposure control Comparison: none Findings: There is bilateral mostly upper lobe centrilobular emphysema. Mosaic attenuation pattern is seen throughout the bilateral upper lobes. There is consolidation and atelectasis of most of the left lower lobe. A few groundglass opacities are seen in the inferior left upper lobe. There is some compressive atelectasis at the right lung base with elevation of the right hemidiaphragm. There is a subpleural 8 mm nodular opacity in the right middle lobe. On recent abdomen pelvis CT scan, this demonstrated a cavity. The cavity is not evident currently There is a tracheostomy. The pleural spaces are clear. The heart size is normal. No pericardial effusion. No mediastinal or hilar mass or adenopathy. The ascending thoracic aorta is mildly ectatic, measuring up to 3.8 cm in diameter. The included portion of the thyroid is unremarkable. No axillary or chest wall mass or adenopathy demonstrated. There is smooth thoracic kyphosis without focal compression abnormality. The bones are unremarkable. Included upper abdominal anatomy demonstrates contrast in the colon from prior CT of the abdomen. There is a upper pole right renal cyst Impression: Centrilobular emphysema seen throughout both lungs with with an upper lobe predominance, indicating extensive COPD changes Mosaic attenuation pattern in the upper lobes probably related to COPD, although this is a nonspecific finding Dense consolidation and atelectasis of much of the left lower lobe. This could represent pneumonia. Groundglass opacities in the inferior left upper lobe. These could represent areas of acute inflammation, or could represent post inflammatory changes. 8mm nodule in the right middle lobe, also described on prior CT scan. This previously demonstrated a cavity. Cavitation currently not evident. Differential considerations include neoplasm, acute or chronic inflammatory lesion. Recommend at a minimum follow-up CT scan in 6 months Tracheostomy Kyphosis Right upper pole renal cyst The CT scanner at [facility] is accredited by the [employer] and the scans are performed using protocols designed to limit radiation exposure to as low as reasonably achievable to attain images of sufficient resolution adequate for diagnostic evaluation.
--- NOTE | 2020-03-20 16:29 | NUR ---
NURSE NOTES: Dr. Matta consulted Dr. Franco for urology consult to replace suprapubic cath per Dr. Villegas's order for ongoing fever. Notified Dr. Franco for new order. Will closely monitor the patient. Will continue plan of care. Addendum: 03/20/20 at 1805 by Evan Jaramillo RN Per Dr. Franco, he will come on 03/21 morning for assessment. Will closely monitor the patient. Will continue plan of care.
--- NOTE | 2020-03-20 17:11 | Anethesia Preoperative Eval ---
Anesthesia Pre-op PMH/ROS General Date of Evaluation: Mar 20, 2020 Time of Evaluation: 16:46 Anesthesiologist: Sacha ASA Score: ASA 4 Mallampati Score Class I : Soft palate, uvula, fauces, pillars visible Class II: Soft palate, uvula, fauces visible Class III: Soft palate, base of uvula visible Class IV: Only hard plate visible Mallampati Classification: Class II Surgeon: Rachel Diagnosis: Septic Shock Surgical Procedure: DEBBIE Anesthesia History: none Family History: no anesthesia problems Allergies: Coded Allergies: No Known Allergies (Unverified , 03/11/20) Medications: see eMAR Patient NPO?: Yes Past Medical History Cardiovascular: Reports: HTN, CAD Pulmonary: Reports: COPD - Pneumonia Neurologic/Psychiatric: Reports: CVA, other - Parkinsons HEENT: Reports: glaucoma Hematology/Immune: Reports: anemia, other - Septitc Shock Musculoskeletal/Integumentary: Reports: other - Gout, Weakness, Sacral Decubitus Ulcer stage 4 Anesthesia Pre-op Phys. Exam Physician Exam Last Vital Signs Date Time Temp Pulse Resp B/P (MAP) Pulse Ox O2 Delivery O2 Flow Rate FiO2 03/20/20 16:00 50 03/20/20 16:00 Mechanical Ventilator 03/20/20 16:00 99.1 108 16 134/85 (101) 100 Constitutional: NAD Neurologic: CN 2-12 intact Cardiovascular: RRR Respiratory: CTA Gastrointestinal: S/NT/ND Airway Exam Mallampati Score: Class II MO: limited Neck: Trach ROM: limited Teeth: missing Anesthesia Pre-op A/P Labs Hematology Test 03/20/20 03:18 White Blood Count 15.5 K/UL (4.8-10.8) H Red Blood Count 3.49 M/UL (4.20-5.40) L Hemoglobin 9.6 G/DL (12.0-16.0) L Hematocrit 32.2 % (37.0-47.0) L Mean Corpuscular Volume 92 FL (80-99) Mean Corpuscular Hemoglobin 27.6 PG (27.0-31.0) Mean Corpuscular Hemoglobin Concent 29.9 G/DL (32.0-36.0) L Red Cell Distribution Width 17.9 % (11.6-14.8) H Platelet Count 660 K/UL (150-450) H Mean Platelet Volume 6.5 FL (6.5-10.1) Neutrophils (%) (Auto) 72.7 % (45.0-75.0) Lymphocytes (%) (Auto) 14.4 % (20.0-45.0) L Monocytes (%) (Auto) 4.4 % (1.0-10.0) Eosinophils (%) (Auto) 7.7 % (0.0-3.0) H Basophils (%) (Auto) 0.9 % (0.0-2.0) Chemistry Test 03/19/20 17:17 03/20/20 00:12 03/20/20 03:18 03/20/20 05:21 POC Whole Blood Glucose 151 MG/DL (74-106) H 158 MG/DL (74-106) H 106 MG/DL (74-106) Sodium Level 147 MMOL/L (136-145) H Potassium Level 5.0 MMOL/L (3.5-5.1) Chloride Level 113 MMOL/L (98-107) H Carbon Dioxide Level 31 MMOL/L (21-32) Anion Gap 3 mmol/L (5-15) L Blood Urea Nitrogen 26 mg/dL (7-18) H Creatinine 0.8 MG/DL (0.55-1.30) Estimat Glomerular Filtration Rate > 60 mL/min (>60) Glucose Level 124 MG/DL (74-106) H Calcium Level 8.7 MG/DL (8.5-10.1) Test 03/20/20 12:04 POC Whole Blood Glucose 181 MG/DL (74-106) H Risk Assessment & Plan Assessment: ASA 4 Plan: GA Status Change Before Surgery: No Pre-Antibiotics Drug: Jose Jones MD Mar 20, 2020 17:11
--- NOTE | 2020-03-20 17:40 | Diagnostic Imaging Report ---
Indication: Shortness of breath Technique: One view of the chest Comparison: 03/17/2020 Findings: The patient is rotated to the right. Hazy left hemithorax opacity probably reflects overlying soft tissue. Tracheostomy is again demonstrated. The heart size is normal. Impression: Hazy opacity left hemithorax, probably reflects overlying soft tissue but hazy infiltrate also possible. Correlate with clinical findings No acute process otherwise
--- NOTE | 2020-03-20 18:00 | NUR ---
NURSE NOTES: BS 170 noted. Novolog administered per protocol. The patient is resting on the bed without acute distress or shortness of breath. Tolerating vent setting and tube feeding well. Will closely monitor the patient. Will continue plan of care.
--- NOTE | 2020-03-20 18:38 | Internal Med Progress Note ---
Subjective Date of Service: Mar 20, 2020 Physician Name JennPiyush Attending Physician Jesus Lutz MD Current Medications Medications (Trade) Dose Ordered Sig/Zaki Route PRN Reason Start Time Stop Time Status Last Admin Dose Admin Acetaminophen (Tylenol) 650 mg Q6H PRN GT Temp >100.5, Mild Pain 03/11/20 06:30 04/10/20 06:29 03/19/20 22:25 Amlodipine Besylate (Norvasc) 5 mg DAILY GT 03/21/20 09:00 04/20/20 08:59 Aspirin (ASA) 81 mg DAILY GT 03/11/20 09:00 04/25/20 08:59 03/18/20 08:35 Calcitonin [place] (Miacalcin) 1 sprays DAILY NASAL 03/13/20 11:00 06/11/20 10:59 03/20/20 09:49 Dextrose (Dextrose 50%) 25 ml Q30M PRN IV Hypoglycemia 03/13/20 23:30 06/11/20 23:29 Dextrose (Dextrose 50%) 50 ml Q30M PRN IV Hypoglycemia 03/13/20 23:30 06/11/20 23:29 Diphenhydramine HCl (Benadryl) 25 mg Q8H PRN ORAL Itching 03/14/20 15:00 04/13/20 14:59 03/14/20 15:50 Famotidine (Pepcid) 20 mg BID GT 03/18/20 18:00 06/09/20 08:59 03/20/20 17:39 Insulin Aspart (NovoLOG) Q6HR SUBQ 03/14/20 00:00 06/12/20 00:00 03/20/20 17:39 Ondansetron HCl (Zofran) 4 mg Q4H PRN IVP Nausea & Vomiting 03/11/20 06:30 04/10/20 06:29 Piperacillin Sod/ Tazobactam Sod 3.375 gm/Sodium Chloride 110 ml @ 27.5 mls/hr EVERY 8 HOURS IVPB 03/17/20 22:00 03/24/20 21:59 03/20/20 13:08 Vancomycin HCl (Vanco pharmacy to dose) 1 ea DAILY PRN MISC Per rx protocol 03/11/20 06:30 04/10/20 06:29 Vancomycin HCl 500 mg/Sodium Chloride 110 ml @ 110 mls/hr Q12H IVPB 03/17/20 20:00 03/22/20 19:59 03/20/20 08:35 Zinc Sulfate (Zinc Sulfate) 220 mg DAILY ORAL 03/13/20 09:00 03/23/20 08:59 03/20/20 08:35 Allergies: Coded Allergies: No Known Allergies (Unverified , 03/11/20) ROS Limited/Unobtainable: Yes Subjective 74 YO F trach dependent admitted with hypoxic respiratory failure. Now pneumonia and sepsis. Cover for Int Med-Dr Lutz. Step down unit. Objective Last Vital Signs Date Time Temp Pulse Resp B/P (MAP) Pulse Ox O2 Delivery O2 Flow Rate FiO2 03/20/20 16:00 50 03/20/20 16:00 Mechanical Ventilator 03/20/20 16:00 99.1 108 16 134/85 (101) 100 Laboratory Tests Test 03/20/20 00:12 03/20/20 03:18 03/20/20 05:21 03/20/20 12:04 POC Whole Blood Glucose 158 MG/DL (74-106) H 106 MG/DL (74-106) 181 MG/DL (74-106) H White Blood Count 15.5 K/UL (4.8-10.8) H Red Blood Count 3.49 M/UL (4.20-5.40) L Hemoglobin 9.6 G/DL (12.0-16.0) L Hematocrit 32.2 % (37.0-47.0) L Mean Corpuscular Volume 92 FL (80-99) Mean Corpuscular Hemoglobin 27.6 PG (27.0-31.0) Mean Corpuscular Hemoglobin Concent 29.9 G/DL (32.0-36.0) L Red Cell Distribution Width 17.9 % (11.6-14.8) H Platelet Count 660 K/UL (150-450) H Mean Platelet Volume 6.5 FL (6.5-10.1) Neutrophils (%) (Auto) 72.7 % (45.0-75.0) Lymphocytes (%) (Auto) 14.4 % (20.0-45.0) L Monocytes (%) (Auto) 4.4 % (1.0-10.0) Eosinophils (%) (Auto) 7.7 % (0.0-3.0) H Basophils (%) (Auto) 0.9 % (0.0-2.0) Sodium Level 147 MMOL/L (136-145) H Potassium Level 5.0 MMOL/L (3.5-5.1) Chloride Level 113 MMOL/L (98-107) H Carbon Dioxide Level 31 MMOL/L (21-32) Anion Gap 3 mmol/L (5-15) L Blood Urea Nitrogen 26 mg/dL (7-18) H Creatinine 0.8 MG/DL (0.55-1.30) Estimat Glomerular Filtration Rate > 60 mL/min (>60) Glucose Level 124 MG/DL (74-106) H Calcium Level 8.7 MG/DL (8.5-10.1) Test 03/20/20 17:38 POC Whole Blood Glucose 170 MG/DL (74-106) H Intake and Output 03/19/20 03/20/20 19:00 07:00 Intake Total 1020 ml 1367.5 ml Output Total 600 ml 1300 ml Balance 420 ml 67.5 ml Free Water 200 ml 200 ml IV Total 100 ml 447.5 ml Tube Feeding 720 ml 720 ml Output Urine Total 600 ml 1300 ml # Bowel Movements 1 Objective PHYSICAL EXAMINATION: GENERAL: The patient is a thin-appearing female who is intubated and nonverbal. HEENT: Eyes, pupils are equal and responsive to light and accommodation. Extraocular movements are intact. NECK: Supple without lymphadenopathy. Tracheostomy is in place. CHEST: Mech vent; Diffuse wheezes bilaterally without rhonchi. CARDIOVASCULAR: Tachycardic, regular rhythm. S1, S2 are normal without murmurs, rubs, or gallops. ABDOMEN: Soft, nontender, and nondistended. Positive bowel sounds. No evidence of hepatosplenomegaly. Currently, no rebound or guarding noted. EXTREMITIES: Negative for clubbing, cyanosis, or edema. RECTAL/GENITAL: Not performed. NEUROLOGIC: Unable to assess. chest x-ray revealed left lower lobe consolidation consistent with pneumonia Assessment/Plan Assessment/Plan ASSESSMENT: This is a 74-year-old female. 1. Left lower lobe pneumonia. 2. Respiratory failure. 3. Hypernatremia. 4. Renal failure. 5. Hypoxemia. 6. Tracheostomy dependence. 7. Chronic obstructive pulmonary disease. 8. Diabetes type 2. 9. Parkinson disease. 10. Gout. 11. Glaucoma. 12. Sacral decubitus ulcer stage IV. 13. History of intracranial hemorrhage. 14. Hydrocephalus. 15. sepsis=MRSA 16. UTI=MDR acenitobacter TREATMENT: 1. Left lower lobe pneumonia/respiratory failure/sepsis. Pulmonary consultation =Dr. Patti Matta. ABX= vancomycin and zosyn Infectious disease=Dr. Cruz. We will follow recommendations of Infectious Disease and Pulmonary. 2. Hypernatremia. Hypernatremia may be secondary to renal failure versus dehydration. Nephrology consultation =. 3. Renal failure nephrology consultation =Dr. Huntley. 4. Tracheostomy dependence. 5. Chronic obstructive pulmonary disease. 6. Diabetes type 2. NovoLog sliding scale has been instituted. 7. Parkinson disease. 8. Gout. Continue allopurinol as above. 9. Glaucoma. 10. Sacral decubitus ulcer stage IV. A general surgery consultation has been obtained with Dr. Chris Hunter. 11. History of intracranial hemorrhage. 12. Await DEBBIE; cardiology=Piyush Westfall MD Mar 20, 2020 18:38
--- NOTE | 2020-03-20 19:15 | NUR ---
NURSE HAND-OFF REPORT: Important Events on Shift: CT chest w/o contrast, Mild grade fever Patient Status: Full code, Stable Diet: GTF Glucerna 1.2 @ 60mL/hr Pending Orders: DEBBIE, Dr. Franco consult to replace suprapubic cath Pending Results/Labs: Sputum collection Pending MD notification: N Latest Vital Signs: Temperature 99.1 , Pulse 108 , B/P 134 /85 , Respiratory Rate 16 , O2 SAT 100 , Mechanical Ventilator, O2 Flow Rate . Vital Sign Comment: Stable EKG Rhythm: Sinus Tachycardia Rhythm change?: N MD Notified?: N - MD Response: Latest Ochoa Fall Score: 50 Fall Risk: High Risk Safety Measures: Call light Within Reach, Bed Alarm Zone 1, Side Rails Side Rails x3, Bed position Low and Locked. Fall Precautions: Yellow Socks Yellow Gown Door Sign Patient Fall Education Report given to ADILENE Mae. The patient is stable at this time. Endorsed plan of care.
--- NOTE | 2020-03-20 19:16 | NUR ---
NURSE NOTES: received the pt from Cynthia HEAD.,and Jenniffer HEAD pt is awake and resting on the bed. pt is obtunded. groundwater monitoring technician shows SR at this time. vent setting AC 16 TV 400 FIo2 50% p5 no SOB noted. no active bleeding noted at this time. GT site intact, clean, and patent. Glucerna 1.2 @ 60ml/hr is running without residual. supra cath noted, no active bleeding noted, and draining well with gravity. skin alternation noted, dressing site intact, clean, and patent. left FA 20G IV site intact, clean, patent. bed at the lowest position, alarmed, and locked. call light within reach. will continue to monitor pt with plan of care.
[2020-03-20 20:00] VITALS: BP 125/75
--- NOTE | 2020-03-20 20:40 | NUR ---
NURSE NOTES: Dr. Ramos at the bedside, and per , keep pt NPO from midnight for the possible DEBBIE procedure tomorrow. noted.
[2020-03-21] VITALS (7 sets, daily range): BP systolic 105–133; BP diastolic 56–75
--- NOTE | 2020-03-21 02:30 | NUR ---
NURSE NOTES: provided new gown, new blanket, and new sheets. will continue to monitor pt with plan fo care.
--- NOTE | 2020-03-21 02:30 | NUR ---
NURSE NOTES: cleaned pt, turned Q 2hrs. no s/s of pain at this time. oral care given. skin dressing changed. no SOB noted. no active bleeding noted. call light within reach. will continue to monitor pt.
--- NOTE | 2020-03-21 05:14 | NUR ---
NURSE NOTES: pt pulled out Gtube at this time. secured gtube site. no actively bleeding. vitals are stable. pt is awake at this time. no SOB noted. call light within reach. will continue to monitor pt closely.
[2020-03-21] MEDS: NovoLOG Insulin Flexpen SUBQ SCH ×3 (05:45→17:13)
[2020-03-21] MEDS: Piperacillin/Tazobactam 3.375 GM in NS 110 ML IVPB SCH ×3 (05:46→22:20)
[2020-03-21 05:48] LABS: BASOPHILS % (AUTO) 0.7 % (0.0-2.0); EOSINOPHILS % (AUTO) 5.2 % (0.0-3.0); HEMATOCRIT 31.7 % (37.0-47.0); HEMOGLOBIN 9.5 G/DL (12.0-16.0); LYMPHOCYTES % (AUTO) 11.8 % (20.0-45.0); MEAN CORPUSCULAR VOLUME 92 FL (80-99); NEUTROPHILS % (AUTO) 77.3 % (45.0-75.0); PLATELET COUNT 699 K/UL (150-450); RED BLOOD COUNT 3.45 M/UL (4.20-5.40); WHITE BLOOD COUNT 16.7 K/UL (4.8-10.8)
[2020-03-21] MEDS: Acetaminophen 650mg/20.3ml GT PRN ×3 (05:50→17:44)
[2020-03-21 06:15] LABS: ALANINE AMINOTRANSFERASE 25 U/L (12-78); ALBUMIN 1.5 G/DL (3.4-5.0); ALBUMIN/GLOBULIN RATIO 0.2 (1.0-2.7); ALKALINE PHOSPHATASE 99 U/L (46-116); ASPARTATE AMINO TRANSFERASE 17 U/L (15-37); BILIRUBIN,TOTAL 0.3 MG/DL (0.2-1.0); BLOOD UREA NITROGEN 23 mg/dL (7-18); CARBON DIOXIDE 31 MMOL/L (21-32); CHLORIDE 113 MMOL/L (98-107); CREATININE 0.8 MG/DL (0.55-1.30); POTASSIUM 4.6 MMOL/L (3.5-5.1); SODIUM 147 MMOL/L (136-145)
--- NOTE | 2020-03-21 06:15 | NUR ---
NURSE NOTES: Left voice mail to Dr. Lutz regarding Gtube is out. pt is stable condition, no active bleeding noted. call light within reach. will continue to monitor pt. will wait for call back.
[2020-03-21 06:23] LABS: PHOSPHORUS 3.2 MG/DL (2.5-4.9)
--- NOTE | 2020-03-21 06:30 | NUR ---
NURSE NOTES: Left voice mail to Dr. Lutz regarding Gtube is out. pt is stable condition, Vitals within normal range. no active bleeding noted. call light within reach. will continue to monitor pt. will wait for call back.
--- NOTE | 2020-03-21 07:30 | NUR ---
NURSE NOTES: Received report from ADILENE Mae. The patient is resting on the bed without acute distress or shortness of breath. The patient is obtunded, opening eyes spontaneously, responding to verbal and tactile stimuli but eyes are not tracking. 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 The patient is trach'ed and on ventilator on oxygen saturation is 100%: Portex 7, AC 16, TV 400, FiO2 50%, and PEEP 5. Per ADILENE Mae, the patient accidently pulled out GT. The patient does not have GT at this time. ADILENE Mae secured GT site stoma w/ sterile Collier at this time and kept in NPO. The patient's suprapubic catheter intact and draining by gravity. Skin issue noted and dressing intact. The patient has R FA 20G PIV that is intact and patent. Pending DEBBIE, GT replacement, Suprapubic cath replacement, and venous duplex. Pending DEBBIE consent from family member after communication made with Dr. Crowley. Contacted Dr. Rivera regarding replacement of GT and 20F GT ready at the bedside per Dr. Rivera's order. Contacted Dr. Franco regarding suprapubic cath replacement on 03/20/[address] Villegas's order. Per Dr. Franco, he will come on 03/21 for replacement. Urology cart ready at the bedside. The patient's bed in the lowest position, call light in reach, and fall and aspiration precaution reinforced. PIV site intact and patent. Will follow up the lab and order. Will closely monitor the patient. Will continue plan of care.
--- NOTE | 2020-03-21 07:30 | NUR ---
NURSE HAND-OFF REPORT: Important Events on Shift:[low grade fever, Gtube pulled out, sputum need to follow up, possible DEBBIE today and need consent] Patient Status: [stable] Diet: []Glucerna 1/2 @ 60ml/hr, but now NPO from midnight due to DEBBIE Pending Orders: [n/a] Pending Results/Labs:[sputum] Pending MD notification:[need GI consult,] Latest Vital Signs: Temperature 99.0 , Pulse 100 , B/P 125 /73 , Respiratory Rate 25 , O2 SAT 100 , Mechanical Ventilator, O2 Flow Rate . Vital Sign Comment: [stable] EKG Rhythm: Sinus Rhythm Rhythm change?: N MD Notified?: N - MD Response: Latest Ochoa Fall Score: 50 Fall Risk: High Risk Safety Measures: Call light Within Reach, Bed Alarm Zone 1, Side Rails Side Rails x3, Bed position Low and Locked. Fall Precautions: Yellow Socks Yellow Gown Door Sign Patient Fall Education Report given to [Cynthia HEAD].
--- NOTE | 2020-03-21 07:47 | Infectious Diseases Prog Note ---
Assessment/Plan 74yo F with: Febrile Leukocytosis, improving Thrombocytosis, increasing Sepsis Left lower lung infiltrate Acute on chronic resp failure SP trach MRSA bacteremia RML cavitation, not seen on CT chest 03/11 BCx +MRSA Resp cx +PsA (S-Zosyn, I-merissa and cefepime) UCx 30-40k ACB (colonizer) COVID rapid Ag neg CXR: Midline tracheostomy. Small left pleural effusion. Hyperinflation with flattening of the diaphragms and emphysema, consistent with COPD. No lobar infiltrate. 03/12 BCx NTD 03/13 C.dif neg 03/13 BCx NTD 03/14 BCx NTD 03/14 CT A/P: 1. Sacrococcygeal decubitus ulcers with associated osteomyelitis. 2. Small left pleural effusion. Left lower lobe atelectasis. 3. Bladder wall thickening. Foci of gas in the bladder. Correlate for recent instrumentation versus cystitis. Lung bases: Small nodular focus of cavitation in the right middle lobe. This may be secondary to infection. Recommend continued follow-up. Emphysematous changes in the lung bases. 1.2 cm nodular focus with some central cavitation in the right middle lobe. Pleural space: Small left pleural effusion. Left lower lobe atelectasis. 03/14 TTE: No vegetations, thickened valves 03/17 CXR: 1. Unchanged tracheostomy. 2. Mildly more pronounced linear interstitial prominence could represent atypical infection or interstitial pulmonary edema in the proper clinical context. 3. Unchanged hyperinflation. 4. Unchanged mild retrocardiac atelectasis without or with consolidation. 03/20 BCx ordered 03/20 CT chest: Centrilobular emphysema seen throughout both lungs with with an upper lobe predominance, indicating extensive COPD changes. Mosaic attenuation pattern in the upper lobes probably related to COPD, although this is a nonspecific finding. Dense consolidation and atelectasis of much of the left lower lobe. This could represent pneumonia. Groundglass opacities in the inferior left upper lobe. These could represent areas of acute inflammation, or could represent post inflammatory changes. 8mm nodule in the right middle lobe, also described on prior CT scan. This previously demonstrated a cavity. Cavitation currently not evident. Differential considerations include neoplasm, acute or chronic inflammatory lesion. Recommend at a minimum follow-up CT scan in 6 months 03/20 Resp cx p MRSA nares positive VDRF S/p trach/PEG Bed bound Sacral decub ulceration w/ underlying OM Plan: Cont Zosyn #5 for broader coverage given ongoing fever, increasing WBC, pna Cont vancomycin #11 for MRSA bacteremia, duration TBD DEBBIE given MRSA bacteremia of community onset without clear source, ordered by Cards BUE and BLE US to r/o DVT given increasing platelets F/u repeat BCx 03/20 given ongoing fevers F/u repeat sputum cx 03/20 Exchange SPC if able given ongoing fevers Trend WBC Trend plts Trend temp curve 03/14 SP cefepime #4 Monitor CBC/CMP Monitor temp curve, hemodynamics Monitor resp status D/w RN, Dr Matta and Dr. Ramos Thank you for this consult. [facility] will continue to follow. Subjective Allergies: Coded Allergies: No Known Allergies (Unverified , 03/11/20) AF x24hrs WBC 16, stable Platelets increasing to 699 NAD on vent Pending DEBBIE Pulled out PEG, replaced Going to replace SPC today per RN Objective Last 24 Hour Vital Signs Date Time Temp Pulse Resp B/P (MAP) Pulse Ox O2 Delivery O2 Flow Rate FiO2 03/21/20 04:07 100 03/21/20 04:00 Mechanical Ventilator 03/21/20 04:00 99.0 97 25 125/73 (90) 100 03/21/20 04:00 50 03/21/20 03:26 100 24 50 03/21/20 00:00 99.5 108 25 133/74 (93) 100 03/21/20 00:00 Mechanical Ventilator 03/21/20 00:00 50 03/21/20 00:00 108 03/20/20 22:54 114 27 50 03/20/20 20:00 50 03/20/20 20:00 Mechanical Ventilator 03/20/20 20:00 97.7 105 25 125/75 (92) 100 03/20/20 20:00 103 03/20/20 19:30 107 28 50 03/20/20 16:00 50 03/20/20 16:00 Mechanical Ventilator 03/20/20 16:00 99.1 108 16 134/85 (101) 100 03/20/20 15:13 110 03/20/20 14:40 96 27 50 03/20/20 12:00 50 03/20/20 12:00 97.0 98 16 127/77 (94) 100 03/20/20 12:00 Mechanical Ventilator 03/20/20 11:54 97 03/20/20 10:31 94 26 50 03/20/20 08:35 106 124/74 03/20/20 08:00 Mechanical Ventilator 03/20/20 08:00 50 03/20/20 08:00 98.4 106 16 124/74 (91) 100 Height (Feet): 5 Height (Inches): 5.00 Weight (Pounds): 147 Gen: NAD in bed HEENT: NCAT, trach + secretions CV: RRR Pulm: CTAB Abd: Soft, NTND, +PEG +SPC Ext: No c/c/e Skin: Stage 4 sacral decub ulceration, clean Neuro: Awake, not interactive Laboratory Tests Test 03/20/20 12:04 03/20/20 17:38 03/20/20 22:44 03/21/20 04:15 POC Whole Blood Glucose 181 MG/DL (74-106) H 170 MG/DL (74-106) H 172 MG/DL (74-106) H White Blood Count 16.7 K/UL (4.8-10.8) H Red Blood Count 3.45 M/UL (4.20-5.40) L Hemoglobin 9.5 G/DL (12.0-16.0) L Hematocrit 31.7 % (37.0-47.0) L Mean Corpuscular Volume 92 FL (80-99) Mean Corpuscular Hemoglobin 27.6 PG (27.0-31.0) Mean Corpuscular Hemoglobin Concent 30.0 G/DL (32.0-36.0) L Red Cell Distribution Width 18.0 % (11.6-14.8) H Platelet Count 699 K/UL (150-450) H Mean Platelet Volume 7.5 FL (6.5-10.1) Neutrophils (%) (Auto) 77.3 % (45.0-75.0) H Lymphocytes (%) (Auto) 11.8 % (20.0-45.0) L Monocytes (%) (Auto) 5.0 % (1.0-10.0) Eosinophils (%) (Auto) 5.2 % (0.0-3.0) H Basophils (%) (Auto) 0.7 % (0.0-2.0) Sodium Level 147 MMOL/L (136-145) H Potassium Level 4.6 MMOL/L (3.5-5.1) Chloride Level 113 MMOL/L (98-107) H Carbon Dioxide Level 31 MMOL/L (21-32) Blood Urea Nitrogen 23 mg/dL (7-18) H Creatinine 0.8 MG/DL (0.55-1.30) Estimat Glomerular Filtration Rate > 60 mL/min (>60) Glucose Level 135 MG/DL (74-106) H Calcium Level 9.0 MG/DL (8.5-10.1) Phosphorus Level 3.2 MG/DL (2.5-4.9) Magnesium Level 2.3 MG/DL (1.8-2.4) Total Bilirubin 0.3 MG/DL (0.2-1.0) Aspartate Amino Transf (AST/SGOT) 17 U/L (15-37) Alanine Aminotransferase (ALT/SGPT) 25 U/L (12-78) Alkaline Phosphatase 99 U/L (46-116) Pro-B-Type Natriuretic Peptide 1248 pg/mL (0-125) H Total Protein 7.5 G/DL (6.4-8.2) Albumin 1.5 G/DL (3.4-5.0) L Globulin 6.0 g/dL Albumin/Globulin Ratio 0.2 (1.0-2.7) L Test 03/21/20 05:44 POC Whole Blood Glucose Pending Current Medications Medications (Trade) Dose Ordered Sig/Zaki Route PRN Reason Start Time Stop Time Status Last Admin Dose Admin Acetaminophen (Tylenol) 650 mg Q6H PRN GT Temp >100.5, Mild Pain 03/11/20 06:30 04/10/20 06:29 03/19/20 22:25 Amlodipine Besylate (Norvasc) 5 mg DAILY GT 03/21/20 09:00 04/20/20 08:59 Aspirin (ASA) 81 mg DAILY GT 03/11/20 09:00 04/25/20 08:59 03/18/20 08:35 Calcitonin [place] (Miacalcin) 1 sprays DAILY NASAL 03/13/20 11:00 06/11/20 10:59 03/20/20 09:49 Dextrose (Dextrose 50%) 25 ml Q30M PRN IV Hypoglycemia 03/13/20 23:30 06/11/20 23:29 Dextrose (Dextrose 50%) 50 ml Q30M PRN IV Hypoglycemia 03/13/20 23:30 06/11/20 23:29 Diphenhydramine HCl (Benadryl) 25 mg Q8H PRN ORAL Itching 03/14/20 15:00 04/13/20 14:59 03/14/20 15:50 Famotidine (Pepcid) 20 mg BID GT 03/18/20 18:00 06/09/20 08:59 03/20/20 17:39 Insulin Aspart (NovoLOG) Q6HR SUBQ 03/14/20 00:00 06/12/20 00:00 03/20/20 17:39 Ondansetron HCl (Zofran) 4 mg Q4H PRN IVP Nausea & Vomiting 03/11/20 06:30 04/10/20 06:29 Piperacillin Sod/ Tazobactam Sod 3.375 gm/Sodium Chloride 110 ml @ 27.5 mls/hr EVERY 8 HOURS IVPB 03/17/20 22:00 03/24/20 21:59 03/21/20 05:46 Vancomycin HCl (Vanco pharmacy to dose) 1 ea DAILY PRN MISC Per rx protocol 03/11/20 06:30 04/10/20 06:29 Vancomycin HCl 500 mg/Sodium Chloride 110 ml @ 110 mls/hr Q12H IVPB 03/17/20 20:00 03/22/20 19:59 03/20/20 20:49 Zinc Sulfate (Zinc Sulfate) 220 mg DAILY ORAL 03/13/20 09:00 03/23/20 08:59 03/20/20 08:35 Shirley Villegas M.D. Mar 21, 2020 07:47
--- NOTE | 2020-03-21 08:00 | NUR ---
NURSE NOTES: Morning assessment done. Morning vital signs taken. The patient is stable at this time. Kept in NPO prior to DEBBIE. Will continue plan of care.
[2020-03-21] MEDS: Aspirin Baby 81mg GT SCH (09:00)
--- NOTE | 2020-03-21 09:05 | NUR ---
NURSE NOTES: Dr. Rivera at the bedside. Dr. Rivera inserted 20F GT. Per Dr. Rivera, gaby to use GT for medication and feeding. Will closely monitor the patient. Will continue plan of care.
[2020-03-21] MEDS: Vancomycin 500 MG in NS 110 ML IVPB SCH ×2 (09:06→20:16)
[2020-03-21] MEDS: Zinc Sulfate 220mg ORAL SCH (09:07)
--- NOTE | 2020-03-21 09:30 | NUR ---
NURSE NOTES: Medications administered per order. The patient tolerated well. Held aspirin due to positive OB stool and downtrending Hgb. Will closely monitor the patient. Will continue plan of care.
--- NOTE | 2020-03-21 09:45 | NUR ---
NURSE NOTES: Received report from Vlad Marie, pt. in bed awake, with eyes open, appears to be non-verbal, no signs or symptoms of acute cardiac or respiratory distress noted, bed alarm on, side rails up x's 3 and safety brakes engaged, call light within easy reach, pt. has G tube running Glucerna 1.2 at 60cc/hr - no residual noted- held due to poss procedure DEBBIE, Suprapubic catheter intact and draining to gravity, pt. appears clean and dry, Rt. hand 20G IV intact and patent- TKO, aspiration precautions observed- HOB elevated, skin precautions observed, will continue to monitor pt. and with plan of care.
--- NOTE | 2020-03-21 09:45 | NUR ---
NURSE NOTES: per Ervin, Rn, Los from Cardio calling- per DR. Ramos would like to know if DR. Lutz would like to proceed with DEBBIE today at 11:30am- will leave message for DR. Lutz.
--- NOTE | 2020-03-21 09:49 | NUR ---
NURSE NOTES: left message with DR. Lutz's exchange Jaylin regarding if he would like to proceed with DEBBIE- awaiting for call back from doctor.
--- NOTE | 2020-03-21 10:00 | NUR ---
NURSE HAND-OFF REPORT: Important Events on Shift: GT replaced by Dr. Rivera, Venous duplex at the bedside now per order Patient Status: Stable, Full code Diet: NPO for now since no GT and prior to DEBBIE. Has been on Glucerna 1.2 @ 60mL/hr Pending Orders: DEBBIE and Suprapubic cath replacement Pending Results/Labs: Blood culture and Sputum culture Pending MD notification: N Latest Vital Signs: Temperature 99.1 , Pulse 85 , B/P 105 /66 , Respiratory Rate 20 , O2 SAT 100 , Mechanical Ventilator, O2 Flow Rate . Vital Sign Comment: Stable EKG Rhythm: Sinus Rhythm Rhythm change?: Y MD Notified?: N - MD Response: Latest Ochoa Fall Score: 50 Fall Risk: High Risk Safety Measures: Call light Within Reach, Bed Alarm Zone 1, Side Rails Side Rails x3, Bed position Low and Locked. Fall Precautions: Yellow Socks Yellow Gown Door Sign Patient Fall Education Report given to ADILENE Sanchez. The patient is stable at this time. Endorsed plan of care.
--- NOTE | 2020-03-21 10:30 | NUR ---
NURSE NOTES: surgery calling made aware no consent yet- awaiting for DR. Lutz to call family in regards to consent- will f/u accordingly.
--- NOTE | 2020-03-21 10:35 | NUR ---
NURSE NOTES: left message for DR. Ramos- regarding DEBBIE- awaiting for call back from doctor.
--- NOTE | 2020-03-21 10:38 | NUR ---
NURSE NOTES: left message for DR. Lutz- regarding procedure DEBBIE- to see if he spoke with family member yet- awaiting for call back from doctor.
--- NOTE | 2020-03-21 11:00 | Surgery Progress Note ---
Surgery Progress Note Subjective Additional Comments leukocytosis pending conrado awaiting contact with family for consent patient condition warrants procedure and would advise to proceed as medically necessary Objective Last 24 Hour Vital Signs Date Time Temp Pulse Resp B/P (MAP) Pulse Ox O2 Delivery O2 Flow Rate FiO2 03/21/20 09:20 100.4 100 19 126/75 (92) 100 03/21/20 09:10 Mechanical Ventilator 03/21/20 09:07 103 120/71 03/21/20 08:00 98.2 103 16 120/71 (87) 100 03/21/20 08:00 50 03/21/20 08:00 Mechanical Ventilator 03/21/20 06:40 100 26 50 03/21/20 04:07 100 03/21/20 04:00 Mechanical Ventilator 03/21/20 04:00 99.0 97 25 125/73 (90) 100 03/21/20 04:00 50 03/21/20 03:26 100 24 50 03/21/20 00:00 99.5 108 25 133/74 (93) 100 03/21/20 00:00 Mechanical Ventilator 03/21/20 00:00 50 03/21/20 00:00 108 03/20/20 22:54 114 27 50 03/20/20 20:00 50 03/20/20 20:00 Mechanical Ventilator 03/20/20 20:00 97.7 105 25 125/75 (92) 100 03/20/20 20:00 103 03/20/20 19:30 107 28 50 03/20/20 16:00 50 03/20/20 16:00 Mechanical Ventilator 03/20/20 16:00 99.1 108 16 134/85 (101) 100 03/20/20 15:13 110 03/20/20 14:40 96 27 50 03/20/20 12:00 50 03/20/20 12:00 97.0 98 16 127/77 (94) 100 03/20/20 12:00 Mechanical Ventilator 03/20/20 11:54 97 I&O Intake and Output 03/20/20 03/21/20 19:00 07:00 Intake Total 1017.5 ml 543.94 ml Output Total 900 ml 1500 ml Balance 117.5 ml -956.06 ml Free Water 270 ml 50 ml IV Total 27.5 ml 253.94 ml Tube Feeding 720 ml 240 ml Output Urine Total 900 ml 1500 ml # Bowel Movements 4 Cardiovascular: RSR Respiratory: decreased breath sounds Abdomen: non-tender, present bowel sounds, non-distended Extremities: no cyanosis Laboratory Tests Test 03/20/20 12:04 03/20/20 17:38 03/20/20 22:44 03/21/20 04:15 POC Whole Blood Glucose 181 MG/DL (74-106) H 170 MG/DL (74-106) H 172 MG/DL (74-106) H White Blood Count 16.7 K/UL (4.8-10.8) H Red Blood Count 3.45 M/UL (4.20-5.40) L Hemoglobin 9.5 G/DL (12.0-16.0) L Hematocrit 31.7 % (37.0-47.0) L Mean Corpuscular Volume 92 FL (80-99) Mean Corpuscular Hemoglobin 27.6 PG (27.0-31.0) Mean Corpuscular Hemoglobin Concent 30.0 G/DL (32.0-36.0) L Red Cell Distribution Width 18.0 % (11.6-14.8) H Platelet Count 699 K/UL (150-450) H Mean Platelet Volume 7.5 FL (6.5-10.1) Neutrophils (%) (Auto) 77.3 % (45.0-75.0) H Lymphocytes (%) (Auto) 11.8 % (20.0-45.0) L Monocytes (%) (Auto) 5.0 % (1.0-10.0) Eosinophils (%) (Auto) 5.2 % (0.0-3.0) H Basophils (%) (Auto) 0.7 % (0.0-2.0) Sodium Level 147 MMOL/L (136-145) H Potassium Level 4.6 MMOL/L (3.5-5.1) Chloride Level 113 MMOL/L (98-107) H Carbon Dioxide Level 31 MMOL/L (21-32) Blood Urea Nitrogen 23 mg/dL (7-18) H Creatinine 0.8 MG/DL (0.55-1.30) Estimat Glomerular Filtration Rate > 60 mL/min (>60) Glucose Level 135 MG/DL (74-106) H Calcium Level 9.0 MG/DL (8.5-10.1) Phosphorus Level 3.2 MG/DL (2.5-4.9) Magnesium Level 2.3 MG/DL (1.8-2.4) Total Bilirubin 0.3 MG/DL (0.2-1.0) Aspartate Amino Transf (AST/SGOT) 17 U/L (15-37) Alanine Aminotransferase (ALT/SGPT) 25 U/L (12-78) Alkaline Phosphatase 99 U/L (46-116) Pro-B-Type Natriuretic Peptide 1248 pg/mL (0-125) H Total Protein 7.5 G/DL (6.4-8.2) Albumin 1.5 G/DL (3.4-5.0) L Globulin 6.0 g/dL Albumin/Globulin Ratio 0.2 (1.0-2.7) L Test 03/21/20 05:44 POC Whole Blood Glucose Pending Plan Problems: (1) Hypernatremia (2) Sepsis (3) UTI (urinary tract infection) (4) Stage 4 decubitus ulcer Assessment & Plan: Stage 4 ulcer on admission. macerated edges. serous drainage. foul odor. no active infection Tx plan: wash with NS. apply therahoney gauze and dressing daily change prn saturation CT noted. osteo in sacrum cont abx osteo chronic will monitor and asses if debridement needed ABDOMEN: Liver: Unremarkable. No mass. Gallbladder and bile ducts: Unremarkable. No calcified stones. No ductal dilation. Pancreas: Unremarkable. No mass. No ductal dilation. Spleen: Spleen is small. Adrenals: Unremarkable. No mass. Kidneys and ureters: Renal cysts and subcentimeter low-attenuation foci, too small to characterize. No hydronephrosis. Stomach and bowel: Unremarkable. No obstruction. No mucosal thickening. PELVIS: Appendix: No findings to suggest acute appendicitis. Bladder: Bladder wall thickening. Foci of gas in the bladder. Correlate for recent instrumentation versus cystitis. Reproductive: Unremarkable as visualized. ABDOMEN and PELVIS: Intraperitoneal space: Unremarkable. No free air. No significant fluid collection. Bones/joints: Sacrococcygeal decubitus ulcers with associated osteomyelitis. There is some underlying bone thinning and sclerosis in the distal sacrum and coccyx underlying the decubitus ulcers. No acute fracture. No dislocation. Soft tissues: Unremarkable. Vasculature: Moderate plaque abdominal aorta and branches. No abdominal aortic aneurysm. Lymph nodes: Unremarkable. No enlarged lymph nodes. Tubes, lines and devices: Gastrostomy tube within the gastric body. IMPRESSION: 1. Sacrococcygeal decubitus ulcers with associated osteomyelitis. 2. Small left pleural effusion. Left lower lobe atelectasis. 3. Bladder wall thickening. Foci of gas in the bladder. Correlate for recent instrumentation versus cystitis. DAILY ESTIMATED NEEDS: Needs based on Advanced wound, critical care, underweight, CIVIL D[employer]TER TF/ 45.5kg 30-40 kcals/kg 7944-8002 total kcals 1.5-2 g protein/kg 68-91 g total protein 30-40 mL/kg 0750-3826 total fluid mLs NUTRITION DIAGNOSIS: Increased kcal/prot needs R/T underweight status, wound healing as evidenced by pt @83% IBW w/ underweight BMI of 17.2, admitted w/ multiple wounds, including stage 4 sacral wound. CURRENT TF:Glucerna 1.2 @ 45ml/hr x 24 hrs ENTERAL NUTRITION RECOMMENDATIONS: Glucerna 1.2 @ 60ml/hr x 24 hrs to provide 1440ml, 1728kcal, 86g prot, 1159ml free water * Increase goal rate to 60ml/hr x 24 hrs to meet 100% est kcal/prot needs -> 1.9g prot/kg * HOB over 30 degrees/ water flush per MD * add Shen BID ADDITIONAL RECOMMENDATIONS: * Per SNF: HT=64" and JT=995# vs EMR wt of 147lbs -> rec daily calibrated bedscale wt * Wound healing: TF rec @ goal will provide 100% RDI Vit C 500mg BID, ZnSO4 220gm QD x 10 days Shen BID via PEG * Monitor BGs, consider NISS: h/o DM * Monitor lytes, replete as needed (5) Chronic respiratory failure requiring continuous mechanical ventilation through tracheostomy (6) History of intracranial hemorrhage (7) Idiopathic obstructive hydrocephalus (8) Gout (9) Diabetes mellitus (10) Parkinson's disease dementia (11) Acute on chronic respiratory failure (12) Chronic vegetative state (13) Severe protein-calorie malnutrition Assessment & Plan: DAILY ESTIMATED NEEDS: Needs based on Advanced wound, critical care, underweight, CIVIL DRAFTER TF/ 45.5kg 30-40 kcals/kg [id number] total kcals 1.5-2 g protein/kg 68-91 g total protein 30-40 mL/kg 4140-2413 total fluid mLs NUTRITION DIAGNOSIS: Increased kcal/prot needs R/T underweight status, wound healing as evidenced by pt @83% IBW w/ underweight BMI of 17.2, admitted w/ multiple wounds, including stage 4 sacral wound. CURRENT TF:Glucerna 1.2 @ 45ml/hr x 24 hrs ENTERAL NUTRITION RECOMMENDATIONS: Glucerna 1.2 @ 60ml/hr x 24 hrs to provide 1440ml, 1728kcal, 86g prot, 1159ml free water * Increase goal rate to 60ml/hr x 24 hrs to meet 100% est kcal/prot needs -> 1.9g prot/kg * HOB over 30 degrees/ water flush per MD * add Shen BID ADDITIONAL RECOMMENDATIONS: * Per SNF: HT=64" and TK=574# vs EMR wt of 147lbs -> rec daily calibrated bedscale wt * Wound healing: TF rec @ goal will provide 100% RDI add Vit C 500mg BID, continue ZnSO4 220gm QD x 10 days Shen BID via PEG * Monitor BGs, consider NISS: h/o DM -> NISS now added * Add probiotics for diarrhea (14) Hypercalcemia (15) Staphylococcus aureus bacteremia Assessment & Plan: unlikely related to wound checking often to ensure not worsening good local care being provided cont abx There is bilateral mostly upper lobe centrilobular emphysema. Mosaic attenuation pattern is seen throughout the bilateral upper lobes. There is consolidation and atelectasis of most of the left lower lobe. A few groundglass opacities are seen in the inferior left upper lobe. There is some compressive atelectasis at the right lung base with elevation of the right hemidiaphragm. There is a subpleural 8 mm nodular opacity in the right middle lobe. On recent abdomen pelvis CT scan, this demonstrated a cavity. The cavity is not evident currently There is a tracheostomy. The pleural spaces are clear. The heart size is normal. No pericardial effusion. No mediastinal or hilar mass or adenopathy. The ascending thoracic aorta is mildly ectatic, measuring up to 3.8 cm in diameter. The included portion of the thyroid is unremarkable. No axillary or chest wall mass or adenopathy demonstrated. There is smooth thoracic kyphosis without focal compression abnormality. The bones are unremarkable. Included upper abdominal anatomy demonstrates contrast in the colon from prior CT of the abdomen. There is a upper pole right renal cyst Impression: Centrilobular emphysema seen throughout both lungs with with an upper lobe predominance, indicating extensive COPD changes Mosaic attenuation pattern in the upper lobes probably related to COPD, although this is a nonspecific finding Dense consolidation and atelectasis of much of the left lower lobe. This could represent pneumonia. Groundglass opacities in the inferior left upper lobe. These could represent areas of acute inflammation, or could represent post inflammatory changes. 8mm nodule in the right middle lobe, also described on prior CT scan. This previously demonstrated a cavity. Cavitation currently not evident. Differential considerations include neoplasm, acute or chronic inflammatory lesion. Recommend at a minimum follow-up CT scan in 6 months Tracheostomy Kyphosis Right upper pole renal cyst Chris Hunter Mar 21, 2020 11:00
--- NOTE | 2020-03-21 11:14 | NUR ---
RADIOLOGY DEPT., CHEST X-RAY DONE-P.DYE
[2020-03-21] MEDS ORDERED: Lidocaine 1% MPF 10mg/ml 5ml ONE (11:20)
[2020-03-21] MEDS ORDERED: Sodium Chloride 10ml vial INJ ONE (11:24)
--- NOTE | 2020-03-21 11:25 | Cardiology Progress Note ---
Assessment/Plan Assessment/Plan [id number] pt seen and examined 03/20 d/w dtr adn dr milligan await family decision if dtr would like and consent to attempt the conrado not sure if physically feasible to intubate the esopahgus Objective Last 24 Hour Vital Signs Date Time Temp Pulse Resp B/P (MAP) Pulse Ox O2 Delivery O2 Flow Rate FiO2 03/21/20 09:20 100.4 100 19 126/75 (92) 100 03/21/20 09:10 Mechanical Ventilator 03/21/20 09:07 103 120/71 03/21/20 08:00 98.2 103 16 120/71 (87) 100 03/21/20 08:00 50 03/21/20 08:00 Mechanical Ventilator 03/21/20 06:40 100 26 50 03/21/20 04:07 100 03/21/20 04:00 Mechanical Ventilator 03/21/20 04:00 99.0 97 25 125/73 (90) 100 03/21/20 04:00 50 03/21/20 03:26 100 24 50 03/21/20 00:00 99.5 108 25 133/74 (93) 100 03/21/20 00:00 Mechanical Ventilator 03/21/20 00:00 50 03/21/20 00:00 108 03/20/20 22:54 114 27 50 03/20/20 20:00 50 03/20/20 20:00 Mechanical Ventilator 03/20/20 20:00 97.7 105 25 125/75 (92) 100 03/20/20 20:00 103 03/20/20 19:30 107 28 50 03/20/20 16:00 50 03/20/20 16:00 Mechanical Ventilator 03/20/20 16:00 99.1 108 16 134/85 (101) 100 03/20/20 15:13 110 03/20/20 14:40 96 27 50 03/20/20 12:00 50 03/20/20 12:00 97.0 98 16 127/77 (94) 100 03/20/20 12:00 Mechanical Ventilator 03/20/20 11:54 97 Intake and Output 03/20/20 03/21/20 19:00 07:00 Intake Total 1017.5 ml 543.94 ml Output Total 900 ml 1500 ml Balance 117.5 ml -956.06 ml Free Water 270 ml 50 ml IV Total 27.5 ml 253.94 ml Tube Feeding 720 ml 240 ml Output Urine Total 900 ml 1500 ml # Bowel Movements 4 Laboratory Tests Test 03/20/20 12:04 03/20/20 17:38 03/20/20 22:44 03/21/20 04:15 POC Whole Blood Glucose 181 MG/DL (74-106) H 170 MG/DL (74-106) H 172 MG/DL (74-106) H White Blood Count 16.7 K/UL (4.8-10.8) H Red Blood Count 3.45 M/UL (4.20-5.40) L Hemoglobin 9.5 G/DL (12.0-16.0) L Hematocrit 31.7 % (37.0-47.0) L Mean Corpuscular Volume 92 FL (80-99) Mean Corpuscular Hemoglobin 27.6 PG (27.0-31.0) Mean Corpuscular Hemoglobin Concent 30.0 G/DL (32.0-36.0) L Red Cell Distribution Width 18.0 % (11.6-14.8) H Platelet Count 699 K/UL (150-450) H Mean Platelet Volume 7.5 FL (6.5-10.1) Neutrophils (%) (Auto) 77.3 % (45.0-75.0) H Lymphocytes (%) (Auto) 11.8 % (20.0-45.0) L Monocytes (%) (Auto) 5.0 % (1.0-10.0) Eosinophils (%) (Auto) 5.2 % (0.0-3.0) H Basophils (%) (Auto) 0.7 % (0.0-2.0) Sodium Level 147 MMOL/L (136-145) H Potassium Level 4.6 MMOL/L (3.5-5.1) Chloride Level 113 MMOL/L (98-107) H Carbon Dioxide Level 31 MMOL/L (21-32) Blood Urea Nitrogen 23 mg/dL (7-18) H Creatinine 0.8 MG/DL (0.55-1.30) Estimat Glomerular Filtration Rate > 60 mL/min (>60) Glucose Level 135 MG/DL (74-106) H Calcium Level 9.0 MG/DL (8.5-10.1) Phosphorus Level 3.2 MG/DL (2.5-4.9) Magnesium Level 2.3 MG/DL (1.8-2.4) Total Bilirubin 0.3 MG/DL (0.2-1.0) Aspartate Amino Transf (AST/SGOT) 17 U/L (15-37) Alanine Aminotransferase (ALT/SGPT) 25 U/L (12-78) Alkaline Phosphatase 99 U/L (46-116) Pro-B-Type Natriuretic Peptide 1248 pg/mL (0-125) H Total Protein 7.5 G/DL (6.4-8.2) Albumin 1.5 G/DL (3.4-5.0) L Globulin 6.0 g/dL Albumin/Globulin Ratio 0.2 (1.0-2.7) L Test 03/21/20 05:44 POC Whole Blood Glucose Pending Shivam Ramos MD Mar 21, 2020 11:25
--- NOTE | 2020-03-21 11:28 | Pulmonolgy Critical Care Note ---
Critical Care - Asmt/Plan Problems: (1) Acute on chronic respiratory failure (2) Staphylococcus aureus bacteremia (3) Sepsis (4) Chronic respiratory failure requiring continuous mechanical ventilation through tracheostomy (5) Stage 4 decubitus ulcer (6) Diabetes mellitus (7) Parkinson's disease dementia (8) Gout (9) Idiopathic obstructive hydrocephalus (10) Severe protein-calorie malnutrition (11) History of intracranial hemorrhage (12) Chronic vegetative state Respiratory: monitor respiratory rate, adjust FIO2, CXR Cardiac: continue pressors, continue to monitor HR/BP Renal: F/U I&O, keep IV fluid, check electrolytes Infectious Disease: check cultures, continue antibiotics Gastrointestinal: continue feedings/current rate Endocrine: continue sliding scale insulin Hematologic: transfuse if hgb<8.5 Neurologic: PRN Ativan, keep patient comfortable Prophylaxis: Protonix Time Spent (Minutes): 40 Notes Reviewed: screw down, cardio Discussed with: nurses, consultants, case managerssupplier development manager - Objective Last 24 Hour Vital Signs Date Time Temp Pulse Resp B/P (MAP) Pulse Ox O2 Delivery O2 Flow Rate FiO2 03/21/20 09:20 100.4 100 19 126/75 (92) 100 03/21/20 09:10 Mechanical Ventilator 03/21/20 09:07 103 120/71 03/21/20 08:00 98.2 103 16 120/71 (87) 100 03/21/20 08:00 50 03/21/20 08:00 Mechanical Ventilator 03/21/20 06:40 100 26 50 03/21/20 04:07 100 03/21/20 04:00 Mechanical Ventilator 03/21/20 04:00 99.0 97 25 125/73 (90) 100 03/21/20 04:00 50 03/21/20 03:26 100 24 50 03/21/20 00:00 99.5 108 25 133/74 (93) 100 03/21/20 00:00 Mechanical Ventilator 03/21/20 00:00 50 03/21/20 00:00 108 03/20/20 22:54 114 27 50 03/20/20 20:00 50 03/20/20 20:00 Mechanical Ventilator 03/20/20 20:00 97.7 105 25 125/75 (92) 100 03/20/20 20:00 103 03/20/20 19:30 107 28 50 03/20/20 16:00 50 11/23/20 16:00 Mechanical Ventilator 03/20/20 16:00 99.1 108 16 134/85 (101) 100 03/20/20 15:13 110 03/20/20 14:40 96 27 50 03/20/20 12:00 50 03/20/20 12:00 97.0 98 16 127/77 (94) 100 03/20/20 12:00 Mechanical Ventilator 03/20/20 11:54 97 Status: awake, sedated Condition: critical HEENT: atraumatic, normocephalic Lungs: clear, chest wall tender Heart: HR/BP stable Abdomen: soft, non-tender Extremities: no C/C/E Accucheck: 125 Critical Care - Subjective ROS Limited/Unobtainable: Yes Condition: critical EKG Rhythm: Sinus Rhythm FI02: 50 Vent Support Breath Rate: 16 Vent Support Mode: AC Vent Tidal Volume: 400 Sputum Amount: Small PEEP: 5.0 PIP: 23 I&O: Intake and Output 03/20/20 03/21/20 19:00 07:00 Intake Total 1017.5 ml 543.94 ml Output Total 900 ml 1500 ml Balance 117.5 ml -956.06 ml Free Water 270 ml 50 ml IV Total 27.5 ml 253.94 ml Tube Feeding 720 ml 240 ml Output Urine Total 900 ml 1500 ml # Bowel Movements 4 CXR: CT reviewed Labs: Laboratory Tests Test 03/20/20 12:04 03/20/20 17:38 03/20/20 22:44 03/21/20 04:15 POC Whole Blood Glucose 181 MG/DL (74-106) H 170 MG/DL (74-106) H 172 MG/DL (74-106) H White Blood Count 16.7 K/UL (4.8-10.8) H Red Blood Count 3.45 M/UL (4.20-5.40) L Hemoglobin 9.5 G/DL (12.0-16.0) L Hematocrit 31.7 % (37.0-47.0) L Mean Corpuscular Volume 92 FL (80-99) Mean Corpuscular Hemoglobin 27.6 PG (27.0-31.0) Mean Corpuscular Hemoglobin Concent 30.0 G/DL (32.0-36.0) L Red Cell Distribution Width 18.0 % (11.6-14.8) H Platelet Count 699 K/UL (150-450) H Mean Platelet Volume 7.5 FL (6.5-10.1) Neutrophils (%) (Auto) 77.3 % (45.0-75.0) H Lymphocytes (%) (Auto) 11.8 % (20.0-45.0) L Monocytes (%) (Auto) 5.0 % (1.0-10.0) Eosinophils (%) (Auto) 5.2 % (0.0-3.0) H Basophils (%) (Auto) 0.7 % (0.0-2.0) Sodium Level 147 MMOL/L (136-145) H Potassium Level 4.6 MMOL/L (3.5-5.1) Chloride Level 113 MMOL/L (98-107) H Carbon Dioxide Level 31 MMOL/L (21-32) Blood Urea Nitrogen 23 mg/dL (7-18) H Creatinine 0.8 MG/DL (0.55-1.30) Estimat Glomerular Filtration Rate > 60 mL/min (>60) Glucose Level 135 MG/DL (74-106) H Calcium Level 9.0 MG/DL (8.5-10.1) Phosphorus Level 3.2 MG/DL (2.5-4.9) Magnesium Level 2.3 MG/DL (1.8-2.4) Total Bilirubin 0.3 MG/DL (0.2-1.0) Aspartate Amino Transf (AST/SGOT) 17 U/L (15-37) Alanine Aminotransferase (ALT/SGPT) 25 U/L (12-78) Alkaline Phosphatase 99 U/L (46-116) Pro-B-Type Natriuretic Peptide 1248 pg/mL (0-125) H Total Protein 7.5 G/DL (6.4-8.2) Albumin 1.5 G/DL (3.4-5.0) L Globulin 6.0 g/dL Albumin/Globulin Ratio 0.2 (1.0-2.7) L Test 03/21/20 05:44 POC Whole Blood Glucose Pending Patti Matta MD Mar 21, 2020 11:28
--- NOTE | 2020-03-21 11:28 | 48 Hour Post Anesthesia Eval ---
Post Anesthesia Evaluation Procedure: DEBBIE Date of Evaluation: Mar 21, 2020 Airway: patent Nausea: No Vomiting: No Pain Intensity: 1 Hydration Status: adequate Cardiopulmonary Status: Stable Mental Status/LOC: patient returned to baseline Follow-up Care/Observations: 0 Post-Anesthesia Complications: 0 Follow-up care needed: N/A Jose Goncalves MD Mar 21, 2020 11:28
--- NOTE | 2020-03-21 11:28 | Immediate Post-Op Evaluation ---
Immediate Post-Op Evalulation Immediate Post-Op Evalulation Procedure: DEBBIE Date of Evaluation: Mar 21, 2020 Blood Products: 0 Pain Score (1-10): 1 Nausea: No Vomiting: No Complications 0 Patient Status: awake, reacts, patent, none Hydration Status: adequate Jose Goncalves MD Mar 21, 2020 11:28
[2020-03-21] MEDS ORDERED: HYDROcodone/Acetamin 7.5/325 tab ORAL PRN (11:30)
[2020-03-21] MEDS ORDERED: Metoclopramide 10mg/2ml Inj IVP PRN (11:30)
[2020-03-21] MEDS ORDERED: LORazepam Inj 2mg/ml 1ml IV PRN (11:30)
[2020-03-21] MEDS ORDERED: HYDROcodone/Acetamin 5/325 tab ORAL PRN (11:30)
[2020-03-21] MEDS ORDERED: Atropine Sulfate 0.4mg/ml inj IVP PRN (11:30)
[2020-03-21] MEDS ORDERED: Hydromorphone 0.5mg/0.5ml inj IVP PRN (11:30)
[2020-03-21] MEDS ORDERED: fentaNYL 100 mcg/2 mL IV PRN (11:30)
[2020-03-21] MEDS ORDERED: LR 1000ml 1,000 ML IVLG SCH (11:30)
[2020-03-21] MEDS ORDERED: Midazolam 2mg/2ml Inj IVP PRN (11:30)
[2020-03-21] MEDS ORDERED: DiphenhydrAMINE 50mg/ml Inj IVP PRN (11:30)
[2020-03-21] MEDS ORDERED: oxyCODONE HCL/Acetaminophen 5/325mg ORAL PRN (11:30)
[2020-03-21] MEDS ORDERED: Labetalol 5mg/ml 20ml vial IV PRN (11:30)
[2020-03-21] MEDS ORDERED: Meperidine 25mg/1ml Inj (FOR RIGORS ONLY) IV PRN (11:30)
--- NOTE | 2020-03-21 11:40 | NUR ---
NURSE NOTES: made DR. Matta aware that family would like to speak to him regarding consent for DEBBIE- doctor aware to call family.
--- NOTE | 2020-03-21 12:00 | NUR ---
NURSE NOTES: per DR. Matta- spoke with family- DEBBIE procedure cancelled.
--- NOTE | 2020-03-21 12:09 | Cardiology Progress Note ---
Assessment/Plan Assessment/Plan bacteremia case discused with dr garcia and dr kyrie mittal discussed with pt dtr who has decided against having conrado performed d/w OR d/w mulitpl time with echo lab CONRADO is therefore cancelled Subjective ROS Limited/Unobtainable: Yes Subjective not communicative on a vent Objective Last 24 Hour Vital Signs Date Time Temp Pulse Resp B/P (MAP) Pulse Ox O2 Delivery O2 Flow Rate FiO2 03/21/20 10:50 100 21 50 03/21/20 09:20 100.4 100 19 126/75 (92) 100 03/21/20 09:10 Mechanical Ventilator 03/21/20 09:07 103 120/71 03/21/20 08:00 98.2 103 16 120/71 (87) 100 03/21/20 08:00 50 03/21/20 08:00 Mechanical Ventilator 03/21/20 06:40 100 26 50 03/21/20 04:07 100 03/21/20 04:00 Mechanical Ventilator 03/21/20 04:00 99.0 97 25 125/73 (90) 100 03/21/20 04:00 50 03/21/20 03:26 100 24 50 03/21/20 00:00 99.5 108 25 133/74 (93) 100 03/21/20 00:00 Mechanical Ventilator 03/21/20 00:00 50 03/21/20 00:00 108 03/20/20 22:54 114 27 50 03/20/20 20:00 50 03/20/20 20:00 Mechanical Ventilator 03/20/20 20:00 97.7 105 25 125/75 (92) 100 03/20/20 20:00 103 03/20/20 19:30 107 28 50 03/20/20 16:00 50 03/20/20 16:00 Mechanical Ventilator 03/20/20 16:00 99.1 108 16 134/85 (101) 100 03/20/20 15:13 110 03/20/20 14:40 96 27 50 General Appearance: on vent, patient on isolation Cardiovascular: normal rate Respiratory/Chest: crackles/rales Abdomen: non tender, soft Extremities: no swelling, other - contracted Intake and Output 03/20/20 03/21/20 19:00 07:00 Intake Total 1017.5 ml 543.94 ml Output Total 900 ml 1500 ml Balance 117.5 ml -956.06 ml Free Water 270 ml 50 ml IV Total 27.5 ml 253.94 ml Tube Feeding 720 ml 240 ml Output Urine Total 900 ml 1500 ml # Bowel Movements 4 Laboratory Tests Test 03/20/20 17:38 03/20/20 22:44 03/21/20 04:15 03/21/20 05:44 POC Whole Blood Glucose 170 MG/DL (74-106) H 172 MG/DL (74-106) H Pending White Blood Count 16.7 K/UL (4.8-10.8) H Red Blood Count 3.45 M/UL (4.20-5.40) L Hemoglobin 9.5 G/DL (12.0-16.0) L Hematocrit 31.7 % (37.0-47.0) L Mean Corpuscular Volume 92 FL (80-99) Mean Corpuscular Hemoglobin 27.6 PG (27.0-31.0) Mean Corpuscular Hemoglobin Concent 30.0 G/DL (32.0-36.0) L Red Cell Distribution Width 18.0 % (11.6-14.8) H Platelet Count 699 K/UL (150-450) H Mean Platelet Volume 7.5 FL (6.5-10.1) Neutrophils (%) (Auto) 77.3 % (45.0-75.0) H Lymphocytes (%) (Auto) 11.8 % (20.0-45.0) L Monocytes (%) (Auto) 5.0 % (1.0-10.0) Eosinophils (%) (Auto) 5.2 % (0.0-3.0) H Basophils (%) (Auto) 0.7 % (0.0-2.0) Sodium Level 147 MMOL/L (136-145) H Potassium Level 4.6 MMOL/L (3.5-5.1) Chloride Level 113 MMOL/L (98-107) H Carbon Dioxide Level 31 MMOL/L (21-32) Blood Urea Nitrogen 23 mg/dL (7-18) H Creatinine 0.8 MG/DL (0.55-1.30) Estimat Glomerular Filtration Rate > 60 mL/min (>60) Glucose Level 135 MG/DL (74-106) H Calcium Level 9.0 MG/DL (8.5-10.1) Phosphorus Level 3.2 MG/DL (2.5-4.9) Magnesium Level 2.3 MG/DL (1.8-2.4) Total Bilirubin 0.3 MG/DL (0.2-1.0) Aspartate Amino Transf (AST/SGOT) 17 U/L (15-37) Alanine Aminotransferase (ALT/SGPT) 25 U/L (12-78) Alkaline Phosphatase 99 U/L (46-116) Pro-B-Type Natriuretic Peptide 1248 pg/mL (0-125) H Total Protein 7.5 G/DL (6.4-8.2) Albumin 1.5 G/DL (3.4-5.0) L Globulin 6.0 g/dL Albumin/Globulin Ratio 0.2 (1.0-2.7) L Test 03/21/20 11:32 POC Whole Blood Glucose 168 MG/DL (74-106) H Shivam Ramos MD Mar 21, 2020 12:09
--- NOTE | 2020-03-21 12:20 | NUR ---
NURSE NOTES: notified [place] in cardiology aware DEBBIE cancelled.
--- NOTE | 2020-03-21 12:33 | Cardiac Electrophysiology PN ---
Assessment/Plan Assessment/Plan 1. MRSA bacteremia. Most recent blood culture from March 13, 2020 showed no growth. Echocardiogram showed ejection fraction of 60-65% with no clear vegetation. DEBBIE cancelled today as family refused. TOMASA Ramos 2. VDRF , status post tracheostomy.On 55% Fio2 3. Dysphagia, status post PEG placement. 4. History of intracranial hemorrhage. 5. COPD. 6. Diabetes. 7. Glaucoma. 8. Sacral decubitus stage IV. 9. Hypertension, on amlodipine 10 mg daily. TOMASA RN, Dr. Ramos and Dr. Shirley Villegas Subjective Subjective Off pressors on the Vent in sinus tach Fio2 55%.Family refused DEBBIE Objective Last 24 Hour Vital Signs Date Time Temp Pulse Resp B/P (MAP) Pulse Ox O2 Delivery O2 Flow Rate FiO2 03/21/20 10:50 100 21 50 03/21/20 09:20 100.4 100 19 126/75 (92) 100 03/21/20 09:10 Mechanical Ventilator 03/21/20 09:07 103 120/71 03/21/20 08:00 98.2 103 16 120/71 (87) 100 03/21/20 08:00 50 03/21/20 08:00 Mechanical Ventilator 03/21/20 06:40 100 26 50 03/21/20 04:07 100 03/21/20 04:00 Mechanical Ventilator 03/21/20 04:00 99.0 97 25 125/73 (90) 100 03/21/20 04:00 50 03/21/20 03:26 100 24 50 03/21/20 00:00 99.5 108 25 133/74 (93) 100 03/21/20 00:00 Mechanical Ventilator 03/21/20 00:00 50 03/21/20 00:00 108 03/20/20 22:54 114 27 50 03/20/20 20:00 50 03/20/20 20:00 Mechanical Ventilator 03/20/20 20:00 97.7 105 25 125/75 (92) 100 03/20/20 20:00 103 03/20/20 19:30 107 28 50 03/20/20 16:00 50 03/20/20 16:00 Mechanical Ventilator 03/20/20 16:00 99.1 108 16 134/85 (101) 100 03/20/20 15:13 110 03/20/20 14:40 96 27 50 Intake and Output 03/20/20 03/21/20 19:00 07:00 Intake Total 1017.5 ml 543.94 ml Output Total 900 ml 1500 ml Balance 117.5 ml -956.06 ml Free Water 270 ml 50 ml IV Total 27.5 ml 253.94 ml Tube Feeding 720 ml 240 ml Output Urine Total 900 ml 1500 ml # Bowel Movements 4 Laboratory Tests Test 03/20/20 17:38 03/20/20 22:44 03/21/20 04:15 03/21/20 05:44 POC Whole Blood Glucose 170 MG/DL (74-106) H 172 MG/DL (74-106) H Pending White Blood Count 16.7 K/UL (4.8-10.8) H Red Blood Count 3.45 M/UL (4.20-5.40) L Hemoglobin 9.5 G/DL (12.0-16.0) L Hematocrit 31.7 % (37.0-47.0) L Mean Corpuscular Volume 92 FL (80-99) Mean Corpuscular Hemoglobin 27.6 PG (27.0-31.0) Mean Corpuscular Hemoglobin Concent 30.0 G/DL (32.0-36.0) L Red Cell Distribution Width 18.0 % (11.6-14.8) H Platelet Count 699 K/UL (150-450) H Mean Platelet Volume 7.5 FL (6.5-10.1) Neutrophils (%) (Auto) 77.3 % (45.0-75.0) H Lymphocytes (%) (Auto) 11.8 % (20.0-45.0) L Monocytes (%) (Auto) 5.0 % (1.0-10.0) Eosinophils (%) (Auto) 5.2 % (0.0-3.0) H Basophils (%) (Auto) 0.7 % (0.0-2.0) Sodium Level 147 MMOL/L (136-145) H Potassium Level 4.6 MMOL/L (3.5-5.1) Chloride Level 113 MMOL/L (98-107) H Carbon Dioxide Level 31 MMOL/L (21-32) Blood Urea Nitrogen 23 mg/dL (7-18) H Creatinine 0.8 MG/DL (0.55-1.30) Estimat Glomerular Filtration Rate > 60 mL/min (>60) Glucose Level 135 MG/DL (74-106) H Calcium Level 9.0 MG/DL (8.5-10.1) Phosphorus Level 3.2 MG/DL (2.5-4.9) Magnesium Level 2.3 MG/DL (1.8-2.4) Total Bilirubin 0.3 MG/DL (0.2-1.0) Aspartate Amino Transf (AST/SGOT) 17 U/L (15-37) Alanine Aminotransferase (ALT/SGPT) 25 U/L (12-78) Alkaline Phosphatase 99 U/L (46-116) Pro-B-Type Natriuretic Peptide 1248 pg/mL (0-125) H Total Protein 7.5 G/DL (6.4-8.2) Albumin 1.5 G/DL (3.4-5.0) L Globulin 6.0 g/dL Albumin/Globulin Ratio 0.2 (1.0-2.7) L Test 03/21/20 11:32 POC Whole Blood Glucose 168 MG/DL (74-106) H Objective HEAD AND NECK: No JVD. LUNGS: Coarse rhonchi. She is status post tracheostomy. CARDIOVASCULAR: Regular S1 and S2 with no gallop or rub. Status post PEG. EXTREMITIES: 1+ pitting edema with sacral decubitus. Shay Alejandre MD Mar 21, 2020 12:33
--- NOTE | 2020-03-21 12:46 | NUR ---
NURSE NOTES: non-administered Lactate ringers as DEBBIE is cancelled- by DR. Matta- family aware.
--- NOTE | 2020-03-21 12:51 | NUR ---
NURSE NOTES: bed bath given, linens changed, oral care provided, repositioned and turned pt.- pt.appears to be sating well on current vent settings well at 99%- will continue to monitor pt. and with plan of care.
--- NOTE | 2020-03-21 12:59 | Nephrology Progress Note ---
Assessment/Plan Problem List: (1) Hypercalcemia (2) Hypernatremia (3) Sepsis (4) UTI (urinary tract infection) (5) Stage 4 decubitus ulcer (6) Acute on chronic respiratory failure (7) Chronic vegetative state (8) Severe protein-calorie malnutrition Assessment Azotemia and hypernatremia indicative of severe dehydration and free water deficit Acute on chronic respiratory failure, on mechanical ventilation Severe underlying anemia Sepsis Stage IV decubitus Idiopathic obstructive hydrocephalus, history of intracranial hemorrhage Diabetes mellitus Parkinson's disease, dementia Protein calorie malnutrition Plan March 21: Labs reviewed. Renal parameters stable. Continue per consultants. March 20: Labs reviewed. Serum sodium lower 147. Serum calcium stable. Continue as is. March 19: Labs reviewed. Serum sodium unchanged at 150. Another liter of D5W ordered. Serum calcium stable. Continue as is. March 18: Labs reviewed. Serum sodium 150. 1 L of D5W IV ordered. Serum calcium stable. Continue as is. March 17: Labs reviewed. Renal parameters stable. Continue to watch serum calcium. Continue per consultants. March 16: Labs reviewed. Serum calcium stable. Medication list reviewed. Abnormal electrolyte addressed. Continue current management. March 15: Labs reviewed. Serum calcium lowering. Abnormal electrolytes addressed. Continue per consultants. March 14: Labs reviewed. Status quo. Serum calcium lowering. Magnesium and potassium supplement ordered. Continue per current treatment plan. March 13: 1 dose of pamidronate 60 mg for high calcium IV ordered. Labs reviewed. Medication list reviewed. Electrolytes improving. Hemoglobin higher after transfusion. Nasal calcitonin initiated March 12: D5W at 75 cc an hour Monitor electrolytes Monitor hemoglobin hematocrit Gastric support Consider transfusion Continue per orders Parameters for blood pressure medication Antibiotics per ID Subjective ROS Limited/Unobtainable: Yes Objective Objective Last 24 Hour Vital Signs Date Time Temp Pulse Resp B/P (MAP) Pulse Ox O2 Delivery O2 Flow Rate FiO2 03/21/20 10:50 100 21 50 03/21/20 09:20 100.4 100 19 126/75 (92) 100 03/21/20 09:10 Mechanical Ventilator 03/21/20 09:07 103 120/71 03/21/20 08:00 98.2 103 16 120/71 (87) 100 03/21/20 08:00 50 03/21/20 08:00 Mechanical Ventilator 03/21/20 06:40 100 26 50 03/21/20 04:07 100 03/21/20 04:00 Mechanical Ventilator 03/21/20 04:00 99.0 97 25 125/73 (90) 100 03/21/20 04:00 50 03/21/20 03:26 100 24 50 03/21/20 00:00 99.5 108 25 133/74 (93) 100 03/21/20 00:00 Mechanical Ventilator 03/21/20 00:00 50 03/21/20 00:00 108 03/20/20 22:54 114 27 50 03/20/20 20:00 50 03/20/20 20:00 Mechanical Ventilator 03/20/20 20:00 97.7 105 25 125/75 (92) 100 03/20/20 20:00 103 03/20/20 19:30 107 28 50 03/20/20 16:00 50 03/20/20 16:00 Mechanical Ventilator 03/20/20 16:00 99.1 108 16 134/85 (101) 100 03/20/20 15:13 110 03/20/20 14:40 96 27 50 Intake and Output 03/20/20 03/21/20 19:00 07:00 Intake Total 1017.5 ml 543.94 ml Output Total 900 ml 1500 ml Balance 117.5 ml -956.06 ml Free Water 270 ml 50 ml IV Total 27.5 ml 253.94 ml Tube Feeding 720 ml 240 ml Output Urine Total 900 ml 1500 ml # Bowel Movements 4 Current Medications Medications (Trade) Dose Ordered Sig/Zaki Route PRN Reason Start Time Stop Time Status Last Admin Dose Admin Acetaminophen (Tylenol) 650 mg Q6H PRN GT Temp >100.5, Mild Pain 03/11/20 06:30 04/10/20 06:29 03/21/20 09:08 Acetaminophen/ Hydrocodone Bitart (Primrose 5/325) 1 tab Q1H PRN ORAL Mild Pain (Pain Scale 1-3) 03/21/20 11:30 03/21/20 21:00 Acetaminophen/ Hydrocodone Bitart (Primrose 7.5/325) 1 tab Q1H PRN ORAL Moderate Pain (Pain Scale 4-6) 03/21/20 11:30 03/21/20 21:00 Al Hydroxide/Mg Hydroxide (Mylanta) 15 ml Q1H PRN ORAL gi upset 03/21/20 11:30 03/21/20 21:00 Amlodipine Besylate (Norvasc) 5 mg DAILY GT 03/21/20 09:00 04/20/20 08:59 03/21/20 09:07 Aspirin (ASA) 81 mg DAILY GT 03/11/20 09:00 04/25/20 08:59 03/18/20 08:35 Atropine Sulfate (Atropine 0.4mg/ ml) 0.5 mg Q5M PRN IVP HR<40 03/21/20 11:30 03/21/20 21:00 Calcitonin [place] (Miacalcin) 1 sprays DAILY NASAL 03/13/20 11:00 06/11/20 10:59 03/21/20 09:07 Dextrose (Dextrose 50%) 25 ml Q30M PRN IV Hypoglycemia 03/13/20 23:30 06/11/20 23:29 Dextrose (Dextrose 50%) 50 ml Q30M PRN IV Hypoglycemia 03/13/20 23:30 06/11/20 23:29 Diphenhydramine HCl (Benadryl) 25 mg Q15M PRN IVP Itching 03/21/20 11:30 03/21/20 21:00 Diphenhydramine HCl (Benadryl) 25 mg Q8H PRN ORAL Itching 03/14/20 15:00 04/13/20 14:59 03/14/20 15:50 Famotidine (Pepcid) 20 mg BID GT 03/18/20 18:00 06/09/20 08:59 03/21/20 09:07 Fentanyl Citrate (Sublimaze 100 mcg/2 mL) 25 mcg Q10M PRN IV Moderate Pain (Pain Scale 4-6) 03/21/20 11:30 03/21/20 21:00 Hydralazine HCl (Apresoline) 5 mg Q30M PRN IV SBP>160 / DBP>90 03/21/20 11:30 03/21/20 21:00 Hydromorphone HCl (Dilaudid) 0.5 mg Q15M PRN IVP Severe Pain (Pain Scale 7-10) 03/21/20 11:30 03/21/20 21:00 Insulin Aspart (NovoLOG) Q6HR SUBQ 03/14/20 00:00 06/12/20 00:00 03/20/20 17:39 Labetalol HCl (Normodyne) 5 mg Q10M PRN IV SBP>160 / DBP>90 03/21/20 11:30 03/21/20 21:00 Lactated Ringer's 1,000 ml @ 10 mls/hr Q24H IVLG 03/21/20 11:30 03/21/20 13:29 Lorazepam (Ativan 2mg/ml 1ml) 1 mg Q15M PRN IV For Anxiety 03/21/20 11:30 03/21/20 21:00 Meperidine HCl (Demerol) 25 mg Q5M PRN IV SHIVERING.MAY REPEAT X 1 03/21/20 11:30 03/21/20 21:00 Metoclopramide HCl (Reglan) 10 mg Q1H PRN IVP Nausea & Vomiting 03/21/20 11:30 03/21/20 21:00 Midazolam HCl (Versed 2mg/2ml vial) 1 mg Q15M PRN IVP For Anxiety 03/21/20 11:30 03/21/20 21:00 Ondansetron HCl (Zofran) 4 mg Q1H PRN IVP Nausea & Vomiting 03/21/20 11:30 03/21/20 21:00 Ondansetron HCl (Zofran) 4 mg Q4H PRN IVP Nausea & Vomiting 03/11/20 06:30 04/10/20 06:29 Oxycodone/ Acetaminophen (Percocet 5-325) 1 tab Q1H PRN ORAL Severe Pain (Pain Scale 7-10) 03/21/20 11:30 03/21/20 21:00 Piperacillin Sod/ Tazobactam Sod 3.375 gm/Sodium Chloride 110 ml @ 27.5 mls/hr EVERY 8 HOURS IVPB 03/17/20 22:00 03/24/20 21:59 03/21/20 05:46 Vancomycin HCl (Vanco pharmacy to dose) 1 ea DAILY PRN MISC Per rx protocol 03/11/20 06:30 04/10/20 06:29 Vancomycin HCl 500 mg/Sodium Chloride 110 ml @ 110 mls/hr Q12H IVPB 03/17/20 20:00 03/26/20 19:59 03/21/20 09:06 Zinc Sulfate (Zinc Sulfate) 220 mg DAILY ORAL 03/13/20 09:00 03/23/20 08:59 03/21/20 09:07 Laboratory Tests 03/20/20 17:38: POC Whole Blood Glucose 170H 03/20/20 22:44: POC Whole Blood Glucose 172H 03/21/20 04:15: White Blood Count 16.7H, Red Blood Count 3.45L, Hemoglobin 9.5L, Hematocrit 31.7L, Mean Corpuscular Volume 92, Mean Corpuscular Hemoglobin 27.6, Mean Corpuscular Hemoglobin Concent 30.0L, Red Cell Distribution Width 18.0H, Platelet Count 699H, Mean Platelet Volume 7.5, Neutrophils (%) (Auto) 77.3H, Lymphocytes (%) (Auto) 11.8L, Monocytes (%) (Auto) 5.0, Eosinophils (%) (Auto) 5.2H, Basophils (%) (Auto) 0.7, Sodium Level 147H, Potassium Level 4.6, Chloride Level 113H, Carbon Dioxide Level 31, Blood Urea Nitrogen 23H, Creatinine 0.8, Estimat Glomerular Filtration Rate > 60, Glucose Level 135H, Calcium Level 9.0, Phosphorus Level 3.2, Magnesium Level 2.3, Total Bilirubin 0.3, Aspartate Amino Transf (AST/SGOT) 17, Alanine Aminotransferase (ALT/SGPT) 25, Alkaline Phosphatase 99, Pro-B-Type Natriuretic Peptide 1248H, Total Protein 7.5, Albumin 1.5L, Globulin 6.0, Albumin/Globulin Ratio 0.2L 03/21/20 05:44: POC Whole Blood Glucose [Pending] 03/21/20 11:32: POC Whole Blood Glucose 168H Height (Feet): 5 Height (Inches): 5.00 Weight (Pounds): 147 General Appearance: no apparent distress EENT: other - Trach to vent Cardiovascular: tachycardia Respiratory/Chest: decreased breath sounds Abdomen: distended Mathew Huntley MD Mar 21, 2020 12:59
--- NOTE | 2020-03-21 13:40 | NUR ---
NURSE NOTES: per DR. Franco will not be using Suprapubic catheter- apply gauze to area- Collier 18F inserted by MD- Collier intact and draining to gravity- will continue to monitor pt. and with plan of care.
--- NOTE | 2020-03-21 14:12 | Diagnostic Imaging Report ---
Indication: Shortness of breath Technique: One view of the chest Comparison: 03/20/2020 Findings: Patient is rotated to the left. Tracheostomy is again demonstrated. There is suggestion of retrocardiac consolidation, although this may be in part an artifact of the rotation. The remainder of the lungs and pleural spaces are clear. Impression: Questionable retrocardiac consolidation, versus artifact of positioning.
--- NOTE | 2020-03-21 14:32 | Diagnostic Imaging Report ---
Indication: Bilateral upper extremity edema Technique: Rescanned duplex images of the bilateral upper extremity veins Comparison: none Findings: Bilaterally, grayscale duplex images demonstrate no evidence of intraluminal thrombus. Normal Doppler waveforms. Normal compressibility Impression: Negative
--- NOTE | 2020-03-21 14:42 | Diagnostic Imaging Report ---
Indication: Reason For Exam: DVT Technique: Grayscale and duplex images of the bilateral lower extremity veins Comparison: Findings: Bilaterally, grayscale and duplex images demonstrate no evidence of intraluminal thrombus. Normal phasic Doppler waveforms, demonstrating normal augmentation response and no evidence of valvular insufficiency. Greater saphenous vein(s) and tibial veins are patent. Normal compressibility. Impression: Negative for evidence of lower extremity deep venous thrombosis bilaterally
--- NOTE | 2020-03-21 14:47 | NUR ---
DATA [employer]WORK [employer]IC SI: RESP FAILURE TRACH/VENT DEPENDENT,SEPSIS T. 100.4 HR 100 RR 19 B/P 126/75 AC 16 TV 400 FIO2 50% PEEP 5 WBC 16.7 NA 147 VENOUS DOPPLER= NEGATIVE IS: VANCO IV ZOSYN IV STEP DOWN STATUS
--- NOTE | 2020-03-21 14:51 | NUR ---
[employer] NOT[employer] CLINICALS REVIEWED AND FAXED.
--- NOTE | 2020-03-21 16:30 | NUR ---
NURSE NOTES: cooling measures applied- pt. has temp of 99.6- axillary- will continue to monitor pt. and administer Tylenol per eMAR orders.
--- NOTE | 2020-03-21 16:30 | Consultation ---
DATE OF CONSULTATION: 03/21/2020 CONSULTING PHYSICIAN: Yamil rFanco M.D. REASON FOR CONSULTATION: Nonfunctioning suprapubic tube, urinary leakage. HISTORY OF PRESENT ILLNESS: Patient is a contracted elderly woman who cannot present any history of her illness and is noncommunicative. From the chart, she has suprapubic tube placed before that was functioning poorly. Review of symptoms as well as medications and the rest of the chart was taken from the original chart . PHYSICAL EXAMINATION: She is contracted. The belly is soft, nontender. Significant leakage around the suprapubic tube. Suprapubic tube is nonfunctional. The old suprapubic tube was removed and 16-Maldivian Collier catheter was placed. However, irrigation of the bladder did not show any stable return back of the fluids. I decided to put an 18-Maldivian Collier catheter per urethra, which was successfully done and the bladder was irrigated. Balloon was inflated to 10 mL of water. Old suprapubic tube was removed and dressing was placed. I recommend to follow this patient conservatively, and we will be happy to assist . Yamil Franco M.D. DR: LILIAN JOB#: [id number] CC:
--- NOTE | 2020-03-21 17:48 | Internal Med Progress Note ---
Subjective Date of Service: Mar 21, 2020 Physician Name JennPiyush Attending Physician Jesus Lutz MD Current Medications Medications (Trade) Dose Ordered Sig/Zaki Route PRN Reason Start Time Stop Time Status Last Admin Dose Admin Acetaminophen (Tylenol) 650 mg Q6H PRN GT Temp >100.5, Mild Pain 03/11/20 06:30 04/10/20 06:29 03/21/20 17:44 Acetaminophen/ Hydrocodone Bitart (Aurora 5/325) 1 tab Q1H PRN ORAL Mild Pain (Pain Scale 1-3) 03/21/20 11:30 03/21/20 21:00 Acetaminophen/ Hydrocodone Bitart (Aurora 7.5/325) 1 tab Q1H PRN ORAL Moderate Pain (Pain Scale 4-6) 03/21/20 11:30 03/21/20 21:00 Al Hydroxide/Mg Hydroxide (Mylanta) 15 ml Q1H PRN ORAL gi upset 03/21/20 11:30 03/21/20 21:00 Amlodipine Besylate (Norvasc) 5 mg DAILY GT 03/21/20 09:00 04/20/20 08:59 03/21/20 09:07 Aspirin (ASA) 81 mg DAILY GT 03/11/20 09:00 04/25/20 08:59 03/18/20 08:35 Atropine Sulfate (Atropine 0.4mg/ ml) 0.5 mg Q5M PRN IVP HR<40 03/21/20 11:30 03/21/20 21:00 Calcitonin Zahl (Miacalcin) 1 sprays DAILY NASAL 03/13/20 11:00 06/11/20 10:59 03/21/20 09:07 Dextrose (Dextrose 50%) 25 ml Q30M PRN IV Hypoglycemia 03/13/20 23:30 06/11/20 23:29 Dextrose (Dextrose 50%) 50 ml Q30M PRN IV Hypoglycemia 03/13/20 23:30 06/11/20 23:29 Diphenhydramine HCl (Benadryl) 25 mg Q15M PRN IVP Itching 03/21/20 11:30 03/21/20 21:00 Diphenhydramine HCl (Benadryl) 25 mg Q8H PRN ORAL Itching 03/14/20 15:00 04/13/20 14:59 03/14/20 15:50 Famotidine (Pepcid) 20 mg BID GT 03/18/20 18:00 06/09/20 08:59 03/21/20 17:12 Fentanyl Citrate (Sublimaze 100 mcg/2 mL) 25 mcg Q10M PRN IV Moderate Pain (Pain Scale 4-6) 03/21/20 11:30 03/21/20 21:00 Hydralazine HCl (Apresoline) 5 mg Q30M PRN IV SBP>160 / DBP>90 03/21/20 11:30 03/21/20 21:00 Hydromorphone HCl (Dilaudid) 0.5 mg Q15M PRN IVP Severe Pain (Pain Scale 7-10) 03/21/20 11:30 03/21/20 21:00 Insulin Aspart (NovoLOG) Q6HR SUBQ 03/14/20 00:00 06/12/20 00:00 03/21/20 17:13 Labetalol HCl (Normodyne) 5 mg Q10M PRN IV SBP>160 / DBP>90 03/21/20 11:30 03/21/20 21:00 Lorazepam (Ativan 2mg/ml 1ml) 1 mg Q15M PRN IV For Anxiety 03/21/20 11:30 03/21/20 21:00 Meperidine HCl (Demerol) 25 mg Q5M PRN IV SHIVERING.MAY REPEAT X 1 03/21/20 11:30 03/21/20 21:00 Metoclopramide HCl (Reglan) 10 mg Q1H PRN IVP Nausea & Vomiting 03/21/20 11:30 03/21/20 21:00 Midazolam HCl (Versed 2mg/2ml vial) 1 mg Q15M PRN IVP For Anxiety 03/21/20 11:30 03/21/20 21:00 Ondansetron HCl (Zofran) 4 mg Q1H PRN IVP Nausea & Vomiting 03/21/20 11:30 03/21/20 21:00 Ondansetron HCl (Zofran) 4 mg Q4H PRN IVP Nausea & Vomiting 03/11/20 06:30 04/10/20 06:29 Oxycodone/ Acetaminophen (Percocet 5-325) 1 tab Q1H PRN ORAL Severe Pain (Pain Scale 7-10) 03/21/20 11:30 03/21/20 21:00 Piperacillin Sod/ Tazobactam Sod 3.375 gm/Sodium Chloride 110 ml @ 27.5 mls/hr EVERY 8 HOURS IVPB 03/17/20 22:00 03/24/20 21:59 03/21/20 13:20 Vancomycin HCl (Vanco pharmacy to dose) 1 ea DAILY PRN MISC Per rx protocol 03/11/20 06:30 04/10/20 06:29 Vancomycin HCl 500 mg/Sodium Chloride 110 ml @ 110 mls/hr Q12H IVPB 03/17/20 20:00 03/26/20 19:59 03/21/20 09:06 Zinc Sulfate (Zinc Sulfate) 220 mg DAILY ORAL 03/13/20 09:00 03/23/20 08:59 03/21/20 09:07 Allergies: Coded Allergies: No Known Allergies (Unverified , 03/11/20) ROS Limited/Unobtainable: Yes Subjective 74 YO F trach dependent admitted with hypoxic respiratory failure. Now pneumonia and sepsis. Cover for Int Med-Dr Lutz. Step down unit. Objective Last Vital Signs Date Time Temp Pulse Resp B/P (MAP) Pulse Ox O2 Delivery O2 Flow Rate FiO2 03/21/20 16:00 99.6 94 22 121/65 (83) 100 03/21/20 16:00 50 03/21/20 16:00 Mechanical Ventilator Laboratory Tests Test 03/20/20 22:44 03/21/20 04:15 03/21/20 05:44 03/21/20 11:32 POC Whole Blood Glucose 172 MG/DL (74-106) H Pending 168 MG/DL (74-106) H White Blood Count 16.7 K/UL (4.8-10.8) H Red Blood Count 3.45 M/UL (4.20-5.40) L Hemoglobin 9.5 G/DL (12.0-16.0) L Hematocrit 31.7 % (37.0-47.0) L Mean Corpuscular Volume 92 FL (80-99) Mean Corpuscular Hemoglobin 27.6 PG (27.0-31.0) Mean Corpuscular Hemoglobin Concent 30.0 G/DL (32.0-36.0) L Red Cell Distribution Width 18.0 % (11.6-14.8) H Platelet Count 699 K/UL (150-450) H Mean Platelet Volume 7.5 FL (6.5-10.1) Neutrophils (%) (Auto) 77.3 % (45.0-75.0) H Lymphocytes (%) (Auto) 11.8 % (20.0-45.0) L Monocytes (%) (Auto) 5.0 % (1.0-10.0) Eosinophils (%) (Auto) 5.2 % (0.0-3.0) H Basophils (%) (Auto) 0.7 % (0.0-2.0) Sodium Level 147 MMOL/L (136-145) H Potassium Level 4.6 MMOL/L (3.5-5.1) Chloride Level 113 MMOL/L (98-107) H Carbon Dioxide Level 31 MMOL/L (21-32) Blood Urea Nitrogen 23 mg/dL (7-18) H Creatinine 0.8 MG/DL (0.55-1.30) Estimat Glomerular Filtration Rate > 60 mL/min (>60) Glucose Level 135 MG/DL (74-106) H Calcium Level 9.0 MG/DL (8.5-10.1) Phosphorus Level 3.2 MG/DL (2.5-4.9) Magnesium Level 2.3 MG/DL (1.8-2.4) Total Bilirubin 0.3 MG/DL (0.2-1.0) Aspartate Amino Transf (AST/SGOT) 17 U/L (15-37) Alanine Aminotransferase (ALT/SGPT) 25 U/L (12-78) Alkaline Phosphatase 99 U/L (46-116) Pro-B-Type Natriuretic Peptide 1248 pg/mL (0-125) H Total Protein 7.5 G/DL (6.4-8.2) Albumin 1.5 G/DL (3.4-5.0) L Globulin 6.0 g/dL Albumin/Globulin Ratio 0.2 (1.0-2.7) L Test 03/21/20 16:47 POC Whole Blood Glucose 195 MG/DL (74-106) H Intake and Output 03/20/20 03/21/20 19:00 07:00 Intake Total 1017.5 ml 543.94 ml Output Total 900 ml 1500 ml Balance 117.5 ml -956.06 ml Free Water 270 ml 50 ml IV Total 27.5 ml 253.94 ml Tube Feeding 720 ml 240 ml Output Urine Total 900 ml 1500 ml # Bowel Movements 4 Objective PHYSICAL EXAMINATION: GENERAL: The patient is a thin-appearing female who is intubated and nonverbal. HEENT: Eyes, pupils are equal and responsive to light and accommodation. Extraocular movements are intact. NECK: Supple without lymphadenopathy. Tracheostomy is in place. CHEST: Mech vent; Diffuse wheezes bilaterally without rhonchi. CARDIOVASCULAR: Tachycardic, regular rhythm. S1, S2 are normal without murmurs, rubs, or gallops. ABDOMEN: Soft, nontender, and nondistended. Positive bowel sounds. No evidence of hepatosplenomegaly. Currently, no rebound or guarding noted. EXTREMITIES: Negative for clubbing, cyanosis, or edema. RECTAL/GENITAL: Not performed. NEUROLOGIC: Unable to assess. chest x-ray revealed left lower lobe consolidation consistent with pneumonia Assessment/Plan Assessment/Plan ASSESSMENT: This is a 74-year-old female. 1. Left lower lobe pneumonia. 2. Respiratory failure. 3. Hypernatremia. 4. Renal failure. 5. Hypoxemia. 6. Tracheostomy dependence. 7. Chronic obstructive pulmonary disease. 8. Diabetes type 2. 9. Parkinson disease. 10. Gout. 11. Glaucoma. 12. Sacral decubitus ulcer stage IV. 13. History of intracranial hemorrhage. 14. Hydrocephalus. 15. sepsis=MRSA 16. UTI=MDR acenitobacter TREATMENT: 1. Left lower lobe pneumonia/respiratory failure/sepsis. Pulmonary consultation =Dr. Patti Matta. ABX= vancomycin and zosyn Infectious disease=Dr. Cruz. We will follow recommendations of Infectious Disease and Pulmonary. 2. Hypernatremia. Hypernatremia may be secondary to renal failure versus dehydration. Nephrology consultation =. 3. Renal failure nephrology consultation =Dr. Huntley. 4. Tracheostomy dependence. 5. Chronic obstructive pulmonary disease. 6. Diabetes type 2. NovoLog sliding scale has been instituted. 7. Parkinson disease. 8. Gout. Continue allopurinol as above. 9. Glaucoma. 10. Sacral decubitus ulcer stage IV. A general surgery consultation has been obtained with Dr. Chris Hunter. 11. History of intracranial hemorrhage. 12. Await DEBBIE; cardiology=Piyush Westfall MD Mar 21, 2020 17:48
--- NOTE | 2020-03-21 18:59 | Consultation ---
DATE OF CONSULTATION: 03/20/2020 CARDIOLOGY ECHOCARDIOGRAPHY CONSULTATION CONSULTING PHYSICIAN: Shivam Ramos MD REASON FOR EVALUATION: Transesophageal echocardiogram. HISTORY OF PRESENT ILLNESS: This is a 74-year-old female with history of multiple medical problems. The patient was admitted to the hospital and she had some bacteremia. Consultation is requested about a transesophageal echocardiogram. The case was reviewed. The patient is unable to provide any meaningful history. Therefore, information is obtained from review of the patient's chart. She has as mentioned developed some bacteremia. She has been treated with antibiotics that she was started on a few days ago, followed by several consultants including Infectious Disease. Because of the bacteremia, Infectious Disease has recommended a transesophageal echocardiogram, although her resting echocardiogram did not show any significant vegetations. PAST MEDICAL HISTORY: Positive for history of intracranial hemorrhage, tracheostomy dependent, COPD, diabetes mellitus, Parkinson disease, glaucoma, sacral decubitus ulcers, she is status post PEG placement, and stage IV decubitus ulcers. According to her daughter, she was more communicative before November, but since November she has had decreasing communication. SOCIAL HISTORY: She is a resident of a convalescent facility at the present time on a mechanical ventilator. ALLERGIES: She has no known drug allergies. REVIEW OF SYSTEMS: Unable to obtain. PHYSICAL EXAMINATION: VITAL SIGNS: Temperature is 97 to 99 degrees, last 101.5 degrees on 03/19/2020. Her blood pressure is in the 120s to 130s over 70s, and pulse of 100 to 103. GENERAL: An elderly female, appears somewhat contracted, on a trach tube connected to a ventilator. NECK: Very short, appears somewhat contracted. LUNGS: Some basilar crackles noted. CARDIAC: Regular rate and rhythm. ABDOMEN: Soft. Feeding tube present. EXTREMITIES: Contracted. No significant edema of the lower extremities appear to be present. LABORATORY AND DIAGNOSTIC DATA: Her white count decreased from 22 down to 15.5 today. Hemoglobin of 9.6 and platelet count of 660,000. Most recent blood gases are from 03/19/2020, 7.4, pCO2 46, pO2 of 240, and bicarb of 20. Her electrolytes, sodium 147, potassium 5.0, chloride 113, bicarb 31, BUN 23, creatinine 0.8, glucose of 124, and her calcium is 8.7. INR 1.1 on 03/12/2020 with PTT of 32. Chest x-ray performed on 03/20/2020 showed hazy opacity, left hemithorax overlying soft tissue. Hazy infiltrate is also possible. CT scan seems to show centrilobular emphysema throughout both lungs with an upper lobe predominance indicative of extensive COPD, mosaic attenuation pattern related to COPD, dense consolidation atelectasis of much of the left lower lobe. This could represent pneumonia, ground-glass opacity in the inferior left lung, representing an area of acute inflammation, postinflammatory changes and nodule. A previously demonstrated cavitary lesion is not evident on this test. The patient's microbiology, C. difficile toxin was negative when checked and blood cultures have been negative over the past 5 days and was positive on 03/11/2020 with Staph aureus, MRSA. COVID test was negative. EKG done on 03/11/2020 shows sinus tachycardia, no significant other abnormalities with heart rates in the 150 range. At the present time, her tachycardia has improved to the 80s to 103 range. ASSESSMENT AND PLAN: 1. Bacteremia. 2. Respiratory failure. 3. COPD/emphysema. 4. Pulmonary infiltrates. 5. G-tube dependence. 6. Ventilator dependence. 7. Diabetes mellitus. 8. Dementia. Dr. Lutz and , this patient was seen in cardiac consultation. I have discussed the case with the patient's daughter and specifically my concern remains whether the esophagus can be intubated if she is contracted. I am not sure that this is going to be possible and we discussed the possible risks, complications of the procedure with the patient's daughter. She is not sure that she would want her mother to have the procedure done yet, but she wants to discuss with the patient's primary care physician as she is aware that there was some scan that was to be performed today, and I believe that was the CAT scan that she thought the physicians were basing their decision on performing to recommend a DEBBIE based on that. In either case, the risks and complications of the procedure and also the possibility of inability to perform the procedure because of her physical being was discussed with the patient's daughter. If she does give consent, the procedure can be attempted, but I am not sure if physically feasible to do the procedure depending on the patient's neck mobility and position. Await the patient's final decision. I did discuss the case with Dr. Alejandre as well. Shivam Ramos M.D. DR: KELSEY JOB#: [id number] CC:
--- NOTE | 2020-03-21 19:27 | NUR ---
NURSE HAND-OFF REPORT: Important Events on Shift:Supra pubic catheter- changed to Collier by DR. Franco/ fever- Tylenol and cooling measures done. Patient Status: fair Diet: Glucerna 1.2 Pending Orders: Pending Results/Labs: Pending MD notification: Latest Vital Signs: Temperature 101.2 , Pulse 97 , B/P 121 /65 , Respiratory Rate 21 , O2 SAT 100 , Mechanical Ventilator, O2 Flow Rate . Vital Sign Comment: EKG Rhythm: Sinus Rhythm Rhythm change?: N MD Notified?: N - MD Response: Latest Ochoa Fall Score: 50 Fall Risk: High Risk Safety Measures: Call light Within Reach, Bed Alarm Zone 1, Side Rails Side Rails x3, Bed position Low and Locked. Fall Precautions: Yellow Socks Yellow Gown Door Sign Patient Fall Education Report given to Jamar, RN, pt. remains stable and no signs of distress noted.
--- NOTE | 2020-03-21 20:04 | NUR ---
NURSE NOTES: Report received from ADILENE Sanchez. Observed pt lying in the bed, obtunded, no signs of pain noted. SR noted. Trach to vent Portex 7, AC 16, TV 400, FIO2 50, PEEP 5. GT intact, running Glucerna 1.2 at 60cc/hr. F/C intact, yellow urine noted. IV on R FA 20G, TKO. Bed in the lowest position. Side rails up x3. Will continue to monitor.
--- NOTE | 2020-03-21 22:03 | General Progress Note ---
Subjective Allergies: Coded Allergies: No Known Allergies (Unverified , 03/11/20) Objective Last 24 Hour Vital Signs Date Time Temp Pulse Resp B/P (MAP) Pulse Ox O2 Delivery O2 Flow Rate FiO2 03/21/20 20:00 90 03/21/20 20:00 50 03/21/20 20:00 100.6 91 22 118/56 (76) 100 03/21/20 20:00 Mechanical Ventilator 03/21/20 19:01 97 21 50 03/21/20 18:14 101.2 03/21/20 16:00 99.6 94 22 121/65 (83) 100 03/21/20 16:00 50 03/21/20 16:00 Mechanical Ventilator 03/21/20 15:56 94 03/21/20 15:25 93 22 50 03/21/20 13:40 Mechanical Ventilator 03/21/20 12:00 99.1 85 20 105/66 (79) 100 03/21/20 12:00 50 03/21/20 12:00 Mechanical Ventilator 03/21/20 11:33 85 03/21/20 10:50 100 21 50 03/21/20 09:20 100.4 100 19 126/75 (92) 100 03/21/20 09:10 Mechanical Ventilator 03/21/20 09:07 103 120/71 03/21/20 08:00 98.2 103 16 120/71 (87) 100 03/21/20 08:00 50 03/21/20 08:00 85 03/21/20 08:00 Mechanical Ventilator 03/21/20 07:37 101 03/21/20 06:40 100 26 50 03/21/20 04:07 100 03/21/20 04:00 Mechanical Ventilator 03/21/20 04:00 99.0 97 25 125/73 (90) 100 03/21/20 04:00 50 03/21/20 03:26 100 24 50 03/21/20 00:00 99.5 108 25 133/74 (93) 100 03/21/20 00:00 Mechanical Ventilator 03/21/20 00:00 50 03/21/20 00:00 108 03/20/20 22:54 114 27 50 Intake and Output 03/20/20 03/21/20 19:00 07:00 Intake Total 1017.5 ml 543.94 ml Output Total 900 ml 1500 ml Balance 117.5 ml -956.06 ml Free Water 270 ml 50 ml IV Total 27.5 ml 253.94 ml Tube Feeding 720 ml 240 ml Output Urine Total 900 ml 1500 ml # Bowel Movements 4 Laboratory Tests 03/20/20 22:44: POC Whole Blood Glucose 172H 03/21/20 04:15: White Blood Count 16.7H, Red Blood Count 3.45L, Hemoglobin 9.5L, Hematocrit 31.7L, Mean Corpuscular Volume 92, Mean Corpuscular Hemoglobin 27.6, Mean Corpuscular Hemoglobin Concent 30.0L, Red Cell Distribution Width 18.0H, Platelet Count 699H, Mean Platelet Volume 7.5, Neutrophils (%) (Auto) 77.3H, Lymphocytes (%) (Auto) 11.8L, Monocytes (%) (Auto) 5.0, Eosinophils (%) (Auto) 5.2H, Basophils (%) (Auto) 0.7, Sodium Level 147H, Potassium Level 4.6, Chloride Level 113H, Carbon Dioxide Level 31, Blood Urea Nitrogen 23H, Creatinine 0.8, Estimat Glomerular Filtration Rate > 60, Glucose Level 135H, Calcium Level 9.0, Phosphorus Level 3.2, Magnesium Level 2.3, Total Bilirubin 0.3, Aspartate Amino Transf (AST/SGOT) 17, Alanine Aminotransferase (ALT/SGPT) 25, Alkaline Phos phatase 99, Pro-B-Type Natriuretic Peptide 1248H, Total Protein 7.5, Albumin 1.5L, Globulin 6.0, Albumin/Globulin Ratio 0.2L 03/21/20 05:44: POC Whole Blood Glucose [Pending] 03/21/20 11:32: POC Whole Blood Glucose 168H 03/21/20 16:47: POC Whole Blood Glucose 195H Height (Feet): 5 Height (Inches): 5.00 Weight (Pounds): 147 Assessment/Plan Assessment/Plan: GI CONSULT GT replaced Will follow. Thank you MD Miguel Arvizu Payman MD Mar 21, 2020 22:03
--- NOTE | 2020-03-21 23:31 | NUR ---
NURSE NOTES: Pt sleeping in the bed. Noted temperature of 99.9, cooling measures done. No other distress noted at this time.
[2020-03-22] VITALS: BP 115/63
[2020-03-22] MEDS: NovoLOG Insulin Flexpen SUBQ SCH ×5 (00:17→23:00)
--- NOTE | 2020-03-22 00:45 | Consultation ---
DATE OF CONSULTATION: 03/15/2020 GASTROLOGY CONSULTATION CHIEF COMPLAINT: I was asked to see this patient by Dr. Eladio Winchester for evaluation of heme-positive stools and gastrostomy tube failure. HISTORY OF PRESENT ILLNESS: The patient is an unfortunate 74-year-old woman with multiple medical problems, who is chronically ill with a tracheostomy and a gastrostomy and a history of suprapubic catheter. She was brought into the hospital due to respiratory failure. The patient herself is unable to provide any history and most of the information is only available from the chart. The patient's gastrostomy became occluded today and was replaced with a temporary Collier catheter. In addition, the patient was found to be anemic during this admission and stool occult blood has been ordered, which has been positive. There is no chart report of any gastrointestinal workup in the past, but the records are limited. PAST MEDICAL HISTORY: History of intracranial hemorrhage, status post tracheostomy, chronic obstructive pulmonary disease, type 2 diabetes, Parkinson's, gout, glaucoma, history of stage IV sacral decubitus ulceration, gout. FAMILY HISTORY: Noncontributory. SOCIAL HISTORY: The patient is a alf resident and has had no recent smoking or drinking history. REVIEW OF SYSTEMS: Otherwise negative. MEDICATIONS: See the chart list for details. PHYSICAL EXAMINATION: GENERAL: A debilitated woman seen in her room. HEENT: Normocephalic and atraumatic. Sclerae anicteric. Oropharynx clear. Dentition was poor. NECK: Showed a tracheostomy. CHEST: Coarse breath sounds. CARDIOVASCULAR: Regular rate. ABDOMEN: Soft and flat. The gastrostomy tube site was identified and had a Collier catheter in there. The Collier catheter was removed. A 20-Burkinan gastrostomy retention catheter was used to place a new gastrostomy and position was verified by bedside technique. There was also a suprapubic catheter in the lower abdomen. EXTREMITIES: With contractures. LABORATORY DATA: Noted. ASSESSMENT: This patient has poor overall health with bedbound state and tracheostomy catheter as well as a suprapubic catheter. She does have some heme-positive stools, which may have been the likely sources including anemia. She had a tracheostomy or gastrostomy as well as gastroesophageal reflux or other lesions in the gastrointestinal tract. The patient's overall health is poor and at this point I will hold off on any gastrointestinal workup until her overall health is improved. In the meantime, the gastrostomy has been replaced and can be used for feeding. I will monitor the patient's nutritional status and she will require supplemental protein and multivitamin supportive and wound care. The patient's overall prognosis is limited by her overall poor health and poor as well. RECOMMENDATIONS: Per above discussion and per orders written in the chart. Thank you for asking me to participate in the care of this patient. Deanne Rivera M.D. DR: BRISEIDA JOB#: [id number] CC:
--- NOTE | 2020-03-22 01:00 | NUR ---
NURSE NOTES: Pt sleeping in the bed. Temp of 98.8 at this time. Tolerating current vent setting, no sob noted. Bed bath given. Oral care done. Reposition done. Will continue to monitor.
[2020-03-22] MEDS: Acetaminophen 650mg/20.3ml GT PRN ×3 (03:23→19:57)
--- NOTE | 2020-03-22 03:36 | NUR ---
NURSE NOTES: Noted pt having fever with Temp of 100.5, PRN given, cooling measures done. Will continue to monitor.
[2020-03-22 04:00] VITALS: BP 125/67
[2020-03-22 04:53] LABS: BASOPHILS % (AUTO) 0.8 % (0.0-2.0); EOSINOPHILS % (AUTO) 6.7 % (0.0-3.0); HEMATOCRIT 32.1 % (37.0-47.0); HEMOGLOBIN 9.5 G/DL (12.0-16.0); LYMPHOCYTES % (AUTO) 12.5 % (20.0-45.0); MEAN CORPUSCULAR VOLUME 92 FL (80-99); MONOCYTES % (AUTO) 4.4 % (1.0-10.0); NEUTROPHILS % (AUTO) 75.5 % (45.0-75.0); PLATELET COUNT 657 K/UL (150-450); RED BLOOD COUNT 3.49 M/UL (4.20-5.40); RED CELL DISTRIBUTION WIDTH 17.8 % (11.6-14.8); WHITE BLOOD COUNT 15.7 K/UL (4.8-10.8)
[2020-03-22 05:25] LABS: ANION GAP 6 mmol/L (5-15); BLOOD UREA NITROGEN 21 mg/dL (7-18); CALCIUM 8.8 MG/DL (8.5-10.1); CARBON DIOXIDE 29 MMOL/L (21-32); CHLORIDE 116 MMOL/L (98-107); CREATININE 0.9 MG/DL (0.55-1.30); POTASSIUM 4.2 MMOL/L (3.5-5.1); SODIUM 151 MMOL/L (136-145)
[2020-03-22] MEDS: Piperacillin/Tazobactam 3.375 GM in NS 110 ML IVPB SCH ×3 (05:39→21:02)
--- NOTE | 2020-03-22 07:10 | NUR ---
NURSE NOTES: Received report from ADILENE Roldan. Pt is lying in bed, awake, not in distress, non-verbal but communicates by facial expression. Tolerating vent setting of AC16, TV 400, FiO2 50%, PEEP 5. Vital signs are within normal. IV in R forearm, 20 G is intact and patent. G-tube is intact and patent running Glucerna 1.2 @ 60cc/hr. Collier cather is intact and patent. Bed is locked and in lowest position, bed alarm on, call light is with the pt, head of bed is elevated at all times. Will continue to monitor pt. Will continue with the plan of care.
--- NOTE | 2020-03-22 07:34 | NUR ---
NURSE HAND-OFF REPORT: Important Events on Shift: Fever, T of 100.4, PRN given, cooling measures done. Patient Status: Bipap all night. Diet: CCHO M Pending Orders: [] Pending Results/Labs:[] Pending MD notification:[] Latest Vital Signs: Temperature 100.4 , Pulse 108 , B/P 125 /67 , Respiratory Rate 21 , O2 SAT 100 , Mechanical Ventilator, O2 Flow Rate . Vital Sign Comment: [] EKG Rhythm: Sinus Tachycardia Rhythm change?: N MD Notified?: N - MD Response: Latest Ochoa Fall Score: 50 Fall Risk: High Risk Safety Measures: Call light Within Reach, Bed Alarm Zone 1, Side Rails Side Rails x3, Bed position Low and Locked. Fall Precautions: Yellow Socks Yellow Gown Door Sign Patient Fall Education Report given to ADLIENE Farias. Addendum: 03/22/20 at 0738 by Kina Anderson RN No bipap, wrong pt Pt trach to vent.
--- NOTE | 2020-03-22 07:42 | Infectious Diseases Prog Note ---
Assessment/Plan 74yo F with: Febrile Leukocytosis, improving Thrombocytosis, increasing Sepsis Left lower lung infiltrate Acute on chronic resp failure SP trach MRSA bacteremia RML cavitation, not seen on CT chest 03/11 BCx +MRSA Resp cx +PsA (S-Zosyn, I-merissa and cefepime) UCx 30-40k ACB (colonizer) COVID rapid Ag neg CXR: Midline tracheostomy. Small left pleural effusion. Hyperinflation with flattening of the diaphragms and emphysema, consistent with COPD. No lobar infiltrate. 03/12 BCx NTD 03/13 C.dif neg 03/13 BCx NTD 03/14 BCx NTD 03/14 CT A/P: 1. Sacrococcygeal decubitus ulcers with associated osteomyelitis. 2. Small left pleural effusion. Left lower lobe atelectasis. 3. Bladder wall thickening. Foci of gas in the bladder. Correlate for recent instrumentation versus cystitis. Lung bases: Small nodular focus of cavitation in the right middle lobe. This may be secondary to infection. Recommend continued follow-up. Emphysematous changes in the lung bases. 1.2 cm nodular focus with some central cavitation in the right middle lobe. Pleural space: Small left pleural effusion. Left lower lobe atelectasis. 03/14 TTE: No vegetations, thickened valves 03/17 CXR: 1. Unchanged tracheostomy. 2. Mildly more pronounced linear interstitial prominence could represent atypical infection or interstitial pulmonary edema in the proper clinical context. 3. Unchanged hyperinflation. 4. Unchanged mild retrocardiac atelectasis without or with consolidation. 03/20 BCx p 03/20 CT chest: Centrilobular emphysema seen throughout both lungs with with an upper lobe predominance, indicating extensive COPD changes. Mosaic attenuation pattern in the upper lobes probably related to COPD, although this is a nonspecific finding. Dense consolidation and atelectasis of much of the left lower lobe. This could represent pneumonia. Groundglass opacities in the inferior left upper lobe. These could represent areas of acute inflammation, or could represent post inflammatory changes. 8mm nodule in the right middle lobe, also described on prior CT scan. This previously demonstrated a cavity. Cavitation currently not evident. Differential considerations include neoplasm, acute or chronic inflammatory lesion. Recommend at a minimum follow-up CT scan in 6 months 03/21 Resp cx p 03/21 SPC changed 03/22 UA/UCx p BUE and BLE neg for DVT 03/21 MRSA nares positive VDRF S/p trach/PEG Bed bound Sacral decub ulceration w/ underlying OM Plan: Start levofloxacin #1 to cover for prior found ACB in UCx given ongoing fevers Cont Zosyn #6 for broader coverage given ongoing fever, increasing WBC, pna (PsA in resp cx I-merissa) Cont vancomycin #11 for MRSA bacteremia, duration TBD Agree with hospice evaluation if family decides Given ongoing fevers, high platelets, slow to improve leukocytosis, high s/f undiagnosed endocarditis, c/w aortic root abscess given ongoing fevers. DEBBIE would be helpful for diagnosis - EKG today, MA interval 110, wnl - Consider cardiac MRI vs PET vs tagged WBC if ongoing fevers and pt not definitively going w/ hospice UA/UCx today DEBBIE given MRSA bacteremia of community onset without clear source, ordered by Cards - family thinking about hospice instead F/u repeat BCx 03/20 given ongoing fevers F/u repeat sputum cx 03/21 Trend WBC Trend plts Trend temp curve 03/14 SP cefepime #4 Monitor CBC/CMP Monitor temp curve, hemodynamics Monitor resp status D/w RN and Dr. Matta Thank you for this consult. [facility] will continue to follow. Subjective Allergies: Coded Allergies: No Known Allergies (Unverified , 03/11/20) Ongoing fevers to 101.2 WBC slightly improved to 15 Plts slightly improved to 657 NAD on vent Pending DEBBIE - per d/w Dr. Matta family was encouraged to go w/ hospice Replaced SPC Objective Last 24 Hour Vital Signs Date Time Temp Pulse Resp B/P (MAP) Pulse Ox O2 Delivery O2 Flow Rate FiO2 03/22/20 04:00 50 03/22/20 04:00 Mechanical Ventilator 03/22/20 04:00 100.4 110 21 125/67 (86) 100 03/22/20 04:00 108 03/22/20 03:53 99.8 03/22/20 03:01 111 20 50 03/22/20 00:00 Mechanical Ventilator 03/22/20 00:00 50 03/22/20 00:00 96 03/22/20 00:00 98.9 94 21 115/63 (80) 100 03/21/20 23:43 86 20 50 03/21/20 20:00 90 03/21/20 20:00 50 03/21/20 20:00 100.6 91 22 118/56 (76) 100 03/21/20 20:00 Mechanical Ventilator 03/21/20 19:01 97 21 50 03/21/20 18:14 101.2 03/21/20 16:00 99.6 94 22 121/65 (83) 100 03/21/20 16:00 50 03/21/20 16:00 Mechanical Ventilator 03/21/20 15:56 94 03/21/20 15:25 93 22 50 03/21/20 13:40 Mechanical Ventilator 03/21/20 12:00 99.1 85 20 105/66 (79) 100 03/21/20 12:00 50 03/21/20 12:00 Mechanical Ventilator 03/21/20 11:33 85 03/21/20 10:50 100 21 50 03/21/20 09:20 100.4 100 19 126/75 (92) 100 03/21/20 09:10 Mechanical Ventilator 03/21/20 09:07 103 120/71 03/21/20 08:00 98.2 103 16 120/71 (87) 100 03/21/20 08:00 50 03/21/20 08:00 85 03/21/20 08:00 Mechanical Ventilator Height (Feet): 5 Height (Inches): 5.00 Weight (Pounds): 147 Gen: NAD in bed HEENT: NCAT, trach + secretions CV: RRR Pulm: CTAB Abd: Soft, NTND, +PEG +SPC Ext: No c/c/e Skin: Stage 4 sacral decub ulceration, clean Neuro: Awake, not interactive Microbiology Date/Time Source Procedure Growth Status 03/20/20 09:15 Blood Blood Culture - Preliminary NO GROWTH AFTER 24 HOURS Resulted Laboratory Tests Test 03/21/20 11:32 03/21/20 16:47 03/22/20 00:10 03/22/20 03:50 POC Whole Blood Glucose 168 MG/DL (74-106) H 195 MG/DL (74-106) H 175 MG/DL (74-106) H White Blood Count 15.7 K/UL (4.8-10.8) H Red Blood Count 3.49 M/UL (4.20-5.40) L Hemoglobin 9.5 G/DL (12.0-16.0) L Hematocrit 32.1 % (37.0-47.0) L Mean Corpuscular Volume 92 FL (80-99) Mean Corpuscular Hemoglobin 27.3 PG (27.0-31.0) Mean Corpuscular Hemoglobin Concent 29.7 G/DL (32.0-36.0) L Red Cell Distribution Width 17.8 % (11.6-14.8) H Platelet Count 657 K/UL (150-450) H Mean Platelet Volume 7.8 FL (6.5-10.1) Neutrophils (%) (Auto) 75.5 % (45.0-75.0) H Lymphocytes (%) (Auto) 12.5 % (20.0-45.0) L Monocytes (%) (Auto) 4.4 % (1.0-10.0) Eosinophils (%) (Auto) 6.7 % (0.0-3.0) H Basophils (%) (Auto) 0.8 % (0.0-2.0) Sodium Level 151 MMOL/L (136-145) H Potassium Level 4.2 MMOL/L (3.5-5.1) Chloride Level 116 MMOL/L (98-107) H Carbon Dioxide Level 29 MMOL/L (21-32) Anion Gap 6 mmol/L (5-15) Blood Urea Nitrogen 21 mg/dL (7-18) H Creatinine 0.9 MG/DL (0.55-1.30) Estimat Glomerular Filtration Rate > 60 mL/min (>60) Glucose Level 176 MG/DL (74-106) H Calcium Level 8.8 MG/DL (8.5-10.1) Current Medications Medications (Trade) Dose Ordered Sig/Zaki Route PRN Reason Start Time Stop Time Status Last Admin Dose Admin Acetaminophen (Tylenol) 650 mg Q6H PRN GT Temp >100.5, Mild Pain 03/11/20 06:30 04/10/20 06:29 03/22/20 03:23 Amlodipine Besylate (Norvasc) 5 mg DAILY GT 03/21/20 09:00 04/20/20 08:59 03/21/20 09:07 Aspirin (ASA) 81 mg DAILY GT 03/11/20 09:00 04/25/20 08:59 03/18/20 08:35 Calcitonin Wagoner (Miacalcin) 1 sprays DAILY NASAL 03/13/20 11:00 06/11/20 10:59 03/21/20 09:07 Dextrose (Dextrose 50%) 25 ml Q30M PRN IV Hypoglycemia 03/13/20 23:30 06/11/20 23:29 Dextrose (Dextrose 50%) 50 ml Q30M PRN IV Hypoglycemia 03/13/20 23:30 06/11/20 23:29 Diphenhydramine HCl (Benadryl) 25 mg Q8H PRN ORAL Itching 03/14/20 15:00 04/13/20 14:59 03/14/20 15:50 Famotidine (Pepcid) 20 mg BID GT 03/18/20 18:00 06/09/20 08:59 03/21/20 17:12 Insulin Aspart (NovoLOG) Q6HR SUBQ 03/14/20 00:00 06/12/20 00:00 03/22/20 05:42 Ondansetron HCl (Zofran) 4 mg Q4H PRN IVP Nausea & Vomiting 03/11/20 06:30 04/10/20 06:29 Piperacillin Sod/ Tazobactam Sod 3.375 gm/Sodium Chloride 110 ml @ 27.5 mls/hr EVERY 8 HOURS IVPB 03/17/20 22:00 03/24/20 21:59 03/22/20 05:39 Vancomycin HCl (Vanco pharmacy to dose) 1 ea DAILY PRN MISC Per rx protocol 03/11/20 06:30 04/10/20 06:29 Vancomycin HCl 500 mg/Sodium Chloride 110 ml @ 110 mls/hr Q12H IVPB 03/17/20 20:00 03/26/20 19:59 03/21/20 20:16 Zinc Sulfate (Zinc Sulfate) 220 mg DAILY ORAL 03/13/20 09:00 03/23/20 08:59 03/21/20 09:07 Shirley Villegas M.D. Mar 22, 2020 07:42
--- NOTE | 2020-03-22 07:48 | General Progress Note ---
Subjective Allergies: Coded Allergies: No Known Allergies (Unverified , 03/11/20) Subjective above noted awake tolerating TF Objective Last 24 Hour Vital Signs Date Time Temp Pulse Resp B/P (MAP) Pulse Ox O2 Delivery O2 Flow Rate FiO2 03/22/20 04:00 50 03/22/20 04:00 Mechanical Ventilator 03/22/20 04:00 100.4 110 21 125/67 (86) 100 03/22/20 04:00 108 03/22/20 03:53 99.8 03/22/20 03:01 111 20 50 03/22/20 00:00 Mechanical Ventilator 03/22/20 00:00 50 03/22/20 00:00 96 03/22/20 00:00 98.9 94 21 115/63 (80) 100 03/21/20 23:43 86 20 50 03/21/20 20:00 90 03/21/20 20:00 50 03/21/20 20:00 100.6 91 22 118/56 (76) 100 03/21/20 20:00 Mechanical Ventilator 03/21/20 19:01 97 21 50 03/21/20 18:14 101.2 03/21/20 16:00 99.6 94 22 121/65 (83) 100 03/21/20 16:00 50 03/21/20 16:00 Mechanical Ventilator 03/21/20 15:56 94 03/21/20 15:25 93 22 50 03/21/20 13:40 Mechanical Ventilator 03/21/20 12:00 99.1 85 20 105/66 (79) 100 03/21/20 12:00 50 03/21/20 12:00 Mechanical Ventilator 03/21/20 11:33 85 03/21/20 10:50 100 21 50 03/21/20 09:20 100.4 100 19 126/75 (92) 100 03/21/20 09:10 Mechanical Ventilator 03/21/20 09:07 103 120/71 03/21/20 08:00 98.2 103 16 120/71 (87) 100 03/21/20 08:00 50 03/21/20 08:00 85 03/21/20 08:00 Mechanical Ventilator Intake and Output 03/21/20 03/22/20 19:00 07:00 Intake Total 690.0 ml 810 ml Output Total 300 ml 750 ml Balance 390.0 ml 60 ml Free Water 50 ml 150 ml IV Total 220.0 ml Tube Feeding 420 ml 660 ml Output Urine Total 300 ml 750 ml # Bowel Movements 1 1 Laboratory Tests 03/21/20 11:32: POC Whole Blood Glucose 168H 03/21/20 16:47: POC Whole Blood Glucose 195H 03/22/20 00:10: POC Whole Blood Glucose 175H 03/22/20 03:50: White Blood Count 15.7H, Red Blood Count 3.49L, Hemoglobin 9.5L, Hematocrit 32.1L, Mean Corpuscular Volume 92, Mean Corpuscular Hemoglobin 27.3, Mean Corpuscular Hemoglobin Concent 29.7L, Red Cell Distribution Width 17.8H, Platelet Count 657H, Mean Platelet Volume 7.8, Neutrophils (%) (Auto) 75.5H, Lymphocytes (%) (Auto) 12.5L, Monocytes (%) (Auto) 4.4, Eosinophils (%) (Auto) 6.7H, Basophils (%) (Auto) 0.8, Sodium Level 151H, Potassium Level 4.2, Chloride Level 116H, Carbon Dioxide Level 29, Anion Gap 6, Blood Urea Nitrogen 21H, Creatinine 0.9, Estimat Glomerular Filtration Rate > 60, Glucose Level 176H, Calcium Level 8.8 Height (Feet): 5 Height (Inches): 5.00 Weight (Pounds): 147 Objective elderly woman NCAT supple CTA RR abd soft, (+)GT no edema Assessment/Plan Assessment/Plan: Assessment History of intracranial hemorrhage, s/p gastrostomy, OB (+) stools status post tracheostomy, chronic obstructive pulmonary disease, type 2 diabetes, Parkinson's, gout, glaucoma, history of stage IV sacral decubitus ulceration, gout. Recommendations - continue TF - GT care - elevate HOB - will d/w next of kin - Monitor H&H Deanne Rivera MD Mar 22, 2020 07:48
[2020-03-22 08:00] VITALS: BP 98/62
[2020-03-22] MEDS: Vancomycin 500 MG in NS 110 ML IVPB SCH (08:13)
[2020-03-22] MEDS: Aspirin Baby 81mg GT SCH ×2 (08:20→09:00)
[2020-03-22] MEDS: Zinc Sulfate 220mg ORAL SCH (08:20)
--- NOTE | 2020-03-22 10:00 | NUR ---
NURSE NOTES: Initial assessment done. Morning medications given. Aspiring 80 mg held because of OB stool +. Temperature was 100.5. Cold compress applied. PRN tylenol for fever given. Will continue to monitor pt.
--- NOTE | 2020-03-22 11:00 | NUR ---
NURSE NOTES: Initial assessment done. Morning medications given, ASA 81mg was held due to + OB stool. Pt tolerating vent setting. Vitals remain stable. Will continue to monitor pt.
--- NOTE | 2020-03-22 11:06 | Pulmonolgy Critical Care Note ---
Critical Care - Asmt/Plan Problems: (1) Acute on chronic respiratory failure (2) Staphylococcus aureus bacteremia (3) Sepsis (4) Chronic respiratory failure requiring continuous mechanical ventilation through tracheostomy (5) Stage 4 decubitus ulcer (6) Diabetes mellitus (7) Parkinson's disease dementia (8) Gout (9) Idiopathic obstructive hydrocephalus (10) Severe protein-calorie malnutrition (11) History of intracranial hemorrhage (12) Chronic vegetative state Respiratory: monitor respiratory rate, adjust FIO2, CXR Cardiac: continue pressors, continue to monitor HR/BP Renal: F/U I&O, keep IV fluid, check electrolytes Infectious Disease: check cultures, continue antibiotics Gastrointestinal: continue feedings/current rate Endocrine: monitor blood sugar Hematologic: monitor H/H, transfuse if hgb<8.5 Neurologic: keep patient comfortable Affect: PRN ativan Prophylaxis: Protonix Time Spent (Minutes): 40 Notes Reviewed: guide visitor, cardio, renal Discussed with: nurses, consultants, trimming casermanager production - Objective Last 24 Hour Vital Signs Date Time Temp Pulse Resp B/P (MAP) Pulse Ox O2 Delivery O2 Flow Rate FiO2 03/22/20 10:13 99.0 03/22/20 08:21 91 98/47 03/22/20 08:10 145 03/22/20 08:00 Mechanical Ventilator 03/22/20 08:00 50 03/22/20 08:00 109 03/22/20 08:00 99.7 105 20 98/62 (74) 100 03/22/20 07:25 101 26 50 03/22/20 04:00 50 03/22/20 04:00 Mechanical Ventilator 03/22/20 04:00 100.4 110 21 125/67 (86) 100 03/22/20 04:00 108 03/22/20 03:53 99.8 03/22/20 03:01 111 20 50 03/22/20 00:00 Mechanical Ventilator 03/22/20 00:00 50 03/22/20 00:00 96 03/22/20 00:00 98.9 94 21 115/63 (80) 100 03/21/20 23:43 86 20 50 03/21/20 20:00 90 03/21/20 20:00 50 03/21/20 20:00 100.6 91 22 118/56 (76) 100 11/24/20 20:00 Mechanical Ventilator 03/21/20 19:01 97 21 50 03/21/20 18:14 101.2 03/21/20 16:00 99.6 94 22 121/65 (83) 100 03/21/20 16:00 50 03/21/20 16:00 Mechanical Ventilator 03/21/20 15:56 94 03/21/20 15:25 93 22 50 03/21/20 13:40 Mechanical Ventilator 03/21/20 12:00 99.1 85 20 105/66 (79) 100 03/21/20 12:00 50 03/21/20 12:00 Mechanical Ventilator 03/21/20 11:33 85 Status: sedated Condition: critical, improving HEENT: atraumatic Neck: full ROM Lungs: clear Heart: HR/BP stable Abdomen: soft, non-tender Extremities: no C/C/E Micro: Microbiology Date/Time Source Procedure Growth Status 03/21/20 05:00 Sputum Gram Stain - Final Resulted 03/21/20 05:00 Sputum Culture - Preliminary Gram Negative Bacillus 1 Gram Negative Bacillus 2 Resulted 03/20/20 09:15 Blood Blood Culture - Preliminary NO GROWTH AFTER 24 HOURS Resulted Accucheck: 176 Critical Care - Subjective ROS Limited/Unobtainable: Yes Condition: critical EKG Rhythm: Sinus Rhythm FI02: 50 Vent Support Breath Rate: 16 Vent Support Mode: AC Vent Tidal Volume: 400 Sputum Amount: Moderate PEEP: 5.0 PIP: 23 Tube Feeding Amount: 60 I&O: Intake and Output 03/21/20 03/22/20 19:00 07:00 Intake Total 690.0 ml 810 ml Output Total 300 ml 750 ml Balance 390.0 ml 60 ml Free Water 50 ml 150 ml IV Total 220.0 ml Tube Feeding 420 ml 660 ml Output Urine Total 300 ml 750 ml # Bowel Movements 1 1 CXR: There is suggestion of retrocardiac consolidation, although this may be in part an artifact of the rotation. Labs: Laboratory Tests Test 03/21/20 11:32 03/21/20 16:47 03/22/20 00:10 03/22/20 03:50 POC Whole Blood Glucose 168 MG/DL (74-106) H 195 MG/DL (74-106) H 175 MG/DL (74-106) H White Blood Count 15.7 K/UL (4.8-10.8) H Red Blood Count 3.49 M/UL (4.20-5.40) L Hemoglobin 9.5 G/DL (12.0-16.0) L Hematocrit 32.1 % (37.0-47.0) L Mean Corpuscular Volume 92 FL (80-99) Mean Corpuscular Hemoglobin 27.3 PG (27.0-31.0) Mean Corpuscular Hemoglobin Concent 29.7 G/DL (32.0-36.0) L Red Cell Distribution Width 17.8 % (11.6-14.8) H Platelet Count 657 K/UL (150-450) H Mean Platelet Volume 7.8 FL (6.5-10.1) Neutrophils (%) (Auto) 75.5 % (45.0-75.0) H Lymphocytes (%) (Auto) 12.5 % (20.0-45.0) L Monocytes (%) (Auto) 4.4 % (1.0-10.0) Eosinophils (%) (Auto) 6.7 % (0.0-3.0) H Basophils (%) (Auto) 0.8 % (0.0-2.0) Sodium Level 151 MMOL/L (136-145) H Potassium Level 4.2 MMOL/L (3.5-5.1) Chloride Level 116 MMOL/L (98-107) H Carbon Dioxide Level 29 MMOL/L (21-32) Anion Gap 6 mmol/L (5-15) Blood Urea Nitrogen 21 mg/dL (7-18) H Creatinine 0.9 MG/DL (0.55-1.30) Estimat Glomerular Filtration Rate > 60 mL/min (>60) Glucose Level 176 MG/DL (74-106) H Calcium Level 8.8 MG/DL (8.5-10.1) Patti Matta MD Mar 22, 2020 11:06
[2020-03-22 12:00] VITALS: BP 113/62
--- NOTE | 2020-03-22 12:00 | NUR ---
NURSE NOTES: Urine collected for culture. Dr Villegas stopped Vanco, and started Zyvox. Pt had fever of 100.5. Tylenol given as prescribed. Vital signs remain stable. Pt tolerating vent setting. Will continue to monitor pt.
--- NOTE | 2020-03-22 12:00 | Internal Med Progress Note ---
Subjective Date of Service: Mar 22, 2020 Physician Name BarajasPiyush Attending Physician Jesus Lutz MD Current Medications Medications (Trade) Dose Ordered Sig/Zaki Route PRN Reason Start Time Stop Time Status Last Admin Dose Admin Acetaminophen (Tylenol) 650 mg Q6H PRN GT Temp >100.5, Mild Pain 03/11/20 06:30 04/10/20 06:29 03/22/20 09:43 Amlodipine Besylate (Norvasc) 5 mg DAILY GT 03/21/20 09:00 04/20/20 08:59 03/21/20 09:07 Aspirin (ASA) 81 mg DAILY GT 03/11/20 09:00 04/25/20 08:59 03/18/20 08:35 Calcitonin [place] (Miacalcin) 1 sprays DAILY NASAL 03/13/20 11:00 06/11/20 10:59 03/22/20 08:20 Dextrose (Dextrose 50%) 25 ml Q30M PRN IV Hypoglycemia 03/13/20 23:30 06/11/20 23:29 Dextrose (Dextrose 50%) 50 ml Q30M PRN IV Hypoglycemia 03/13/20 23:30 06/11/20 23:29 Diphenhydramine HCl (Benadryl) 25 mg Q8H PRN ORAL Itching 03/14/20 15:00 04/13/20 14:59 03/14/20 15:50 Famotidine (Pepcid) 20 mg BID GT 03/18/20 18:00 06/09/20 08:59 03/22/20 08:20 Insulin Aspart (NovoLOG) Q6HR SUBQ 03/14/20 00:00 06/12/20 00:00 03/22/20 05:42 Levofloxacin 150 ml @ 150 mls/hr Q48H IVPB 03/22/20 09:00 03/29/20 08:59 03/22/20 08:52 Linezolid 300 ml @ 300 mls/hr Q12HR IVPB 03/22/20 13:00 03/29/20 12:59 Ondansetron HCl (Zofran) 4 mg Q4H PRN IVP Nausea & Vomiting 03/11/20 06:30 04/10/20 06:29 Piperacillin Sod/ Tazobactam Sod 3.375 gm/Sodium Chloride 110 ml @ 27.5 mls/hr EVERY 8 HOURS IVPB 03/17/20 22:00 03/24/20 21:59 03/22/20 05:39 Zinc Sulfate (Zinc Sulfate) 220 mg DAILY ORAL 03/13/20 09:00 03/23/20 08:59 03/22/20 08:20 Allergies: Coded Allergies: No Known Allergies (Unverified , 03/11/20) ROS Limited/Unobtainable: Yes Subjective 74 YO F trach dependent admitted with hypoxic respiratory failure. Now pneumonia and sepsis. Cover for Int Med-Dr Lutz. Step down unit. Low grade fever 100.4 F Objective Last Vital Signs Date Time Temp Pulse Resp B/P (MAP) Pulse Ox O2 Delivery O2 Flow Rate FiO2 03/22/20 10:13 99.0 03/22/20 08:21 91 98/47 03/22/20 08:00 Mechanical Ventilator 03/22/20 08:00 50 03/22/20 08:00 20 100 Laboratory Tests Test 03/21/20 16:47 03/22/20 00:10 03/22/20 03:50 POC Whole Blood Glucose 195 MG/DL (74-106) H 175 MG/DL (74-106) H White Blood Count 15.7 K/UL (4.8-10.8) H Red Blood Count 3.49 M/UL (4.20-5.40) L Hemoglobin 9.5 G/DL (12.0-16.0) L Hematocrit 32.1 % (37.0-47.0) L Mean Corpuscular Volume 92 FL (80-99) Mean Corpuscular Hemoglobin 27.3 PG (27.0-31.0) Mean Corpuscular Hemoglobin Concent 29.7 G/DL (32.0-36.0) L Red Cell Distribution Width 17.8 % (11.6-14.8) H Platelet Count 657 K/UL (150-450) H Mean Platelet Volume 7.8 FL (6.5-10.1) Neutrophils (%) (Auto) 75.5 % (45.0-75.0) H Lymphocytes (%) (Auto) 12.5 % (20.0-45.0) L Monocytes (%) (Auto) 4.4 % (1.0-10.0) Eosinophils (%) (Auto) 6.7 % (0.0-3.0) H Basophils (%) (Auto) 0.8 % (0.0-2.0) Sodium Level 151 MMOL/L (136-145) H Potassium Level 4.2 MMOL/L (3.5-5.1) Chloride Level 116 MMOL/L (98-107) H Carbon Dioxide Level 29 MMOL/L (21-32) Anion Gap 6 mmol/L (5-15) Blood Urea Nitrogen 21 mg/dL (7-18) H Creatinine 0.9 MG/DL (0.55-1.30) Estimat Glomerular Filtration Rate > 60 mL/min (>60) Glucose Level 176 MG/DL (74-106) H Calcium Level 8.8 MG/DL (8.5-10.1) Microbiology Date/Time Source Procedure Growth Status 03/21/20 05:00 Sputum Gram Stain - Final Resulted 03/21/20 05:00 Sputum Culture - Preliminary Gram Negative Bacillus 1 Gram Negative Bacillus 2 Resulted 03/20/20 09:15 Blood Blood Culture - Preliminary NO GROWTH AFTER 24 HOURS Resulted Intake and Output 03/21/20 03/22/20 19:00 07:00 Intake Total 690.0 ml 810 ml Output Total 300 ml 750 ml Balance 390.0 ml 60 ml Free Water 50 ml 150 ml IV Total 220.0 ml Tube Feeding 420 ml 660 ml Output Urine Total 300 ml 750 ml # Bowel Movements 1 1 Objective PHYSICAL EXAMINATION: GENERAL: The patient is a thin-appearing female who is intubated and nonverbal. HEENT: Eyes, pupils are equal and responsive to light and accommodation. Extraocular movements are intact. NECK: Supple without lymphadenopathy. Tracheostomy is in place. CHEST: Mech vent; Diffuse wheezes bilaterally without rhonchi. CARDIOVASCULAR: Tachycardic, regular rhythm. S1, S2 are normal without murmurs, rubs, or gallops. ABDOMEN: Soft, nontender, and nondistended. Positive bowel sounds. No evidence of hepatosplenomegaly. Currently, no rebound or guarding noted. EXTREMITIES: Negative for clubbing, cyanosis, or edema. RECTAL/GENITAL: Not performed. NEUROLOGIC: Unable to assess. chest x-ray revealed left lower lobe consolidation consistent with pneumonia Assessment/Plan Assessment/Plan ASSESSMENT: This is a 74-year-old female. 1. Left lower lobe pneumonia. 2. Respiratory failure. 3. Hypernatremia. 4. Renal failure. 5. Hypoxemia. 6. Tracheostomy dependence. 7. Chronic obstructive pulmonary disease. 8. Diabetes type 2. 9. Parkinson disease. 10. Gout. 11. Glaucoma. 12. Sacral decubitus ulcer stage IV. 13. History of intracranial hemorrhage. 14. Hydrocephalus. 15. sepsis=MRSA 16. UTI=MDR acenitobacter TREATMENT: 1. Left lower lobe pneumonia/respiratory failure/sepsis. Pulmonary consultation =Dr. Patti Matta. ABX= continue zosyn and levaquin. S/P vanco-see ID note Infectious disease=Dr. Villegas. We will follow recommendations of Infectious Disease and Pulmonary. 2. Hypernatremia. Hypernatremia may be secondary to renal failure versus dehydration. Nephrology consultation =. 3. Renal failure nephrology consultation =Dr. Huntley. 4. Tracheostomy dependence. 5. Chronic obstructive pulmonary disease. 6. Diabetes type 2. NovoLog sliding scale has been instituted. 7. Parkinson disease. 8. Gout. Continue allopurinol as above. 9. Glaucoma. 10. Sacral decubitus ulcer stage IV. A general surgery consultation has been obtained with Dr. Chris Hunter. 11. History of intracranial hemorrhage. 12. Await DEBBIE; cardiology=Piyush Westfall MD Mar 22, 2020 12:00
[2020-03-22 12:04] LABS: APPEARANCE,URINE CLOUDY; BILIRUBIN, URINE NEGATIVE (NEGATIVE); COLOR,URINE YELLOW; GLUCOSE, URINE (UA) NEGATIVE (NEGATIVE); KETONES,URINE NEGATIVE (NEGATIVE); LEUKOCYTE ESTERASE ,URINE 3+ (NEGATIVE); NITRITE,URINE NEGATIVE (NEGATIVE); PH,URINE 5 (4.5-8.0); PROTEIN,URINE 2+ (NEGATIVE); UROBILINOGEN,URINE NORMAL MG/DL (0.0-1.0)
--- NOTE | 2020-03-22 12:49 | NUR ---
RD ASSESSMENT & RECOMMENDATIONS SEE CARE ACTIVITY FOR COMPLETE ASSESSMENT DAILY ESTIMATED NEEDS: Needs based on Advanced wound, critical care, underweight, DESIGN INTERN TF/ 45.5kg 30-40 kcals/kg 4863-5320 total kcals 1.5-2 g protein/kg 68-91 g total protein 30-40 mL/kg 8039-8709 total fluid mLs NUTRITION DIAGNOSIS: Increased kcal/prot needs R/T underweight status, wound healing as evidenced by pt @83% IBW w/ underweight BMI of 17.2, admitted w/ multiple wounds, including stage 4 sacral wound. CURRENT TF:Glucerna 1.2 @ 60ml/hr x 24 hrs ENTERAL NUTRITION RECOMMENDATIONS: Glucerna 1.2 @ 60ml/hr x 24 hrs to provide 1440ml, 1728kcal, 86g prot, 1159ml free water * Maintain current TF rate as tolerated to meet 100% est kcal/prot needs -> 1.9g prot/kg. * HOB over 30 degrees/ water flush per MD * add Shen BID ADDITIONAL RECOMMENDATIONS: * Per SNF: HT=64" and XQ=723# vs EMR wt of 147lbs -> Recalibrate bed scale for accurate CBW * Wound healing: TF rec @ goal will provide 100% RDI add Vit C 500mg BID, continue ZnSO4 220gm QD x 10 days Shen BID via PEG * Monitor BGs, consider NISS: h/o DM -> NISS now added * Increase water flushes for elevated Na
--- NOTE | 2020-03-22 13:15 | Cardiac Electrophysiology PN ---
Assessment/Plan Assessment/Plan 1. MRSA bacteremia. Most recent blood culture from March 13, 2020 showed no growth. Echocardiogram showed ejection fraction of 60-65% with no clear vegetation. DEBBIE cancelled as family refused. 2. VDRF , status post tracheostomy.On 55% Fio2 3. Dysphagia, status post PEG placement. 4. History of intracranial hemorrhage. 5. COPD. 6. Diabetes. 7. Glaucoma. 8. Sacral decubitus stage IV. 9. Hypertension, on amlodipine 10 mg daily. 10. Transient SVT DW RN, Dr. Ramos and Dr. Shirley Villegas Subjective Subjective Off pressors on the Vent in sinus tach Fio2 55%.Family refused DEBBIE. Had episodes of SVT lasting less than 20 seconds Objective Last 24 Hour Vital Signs Date Time Temp Pulse Resp B/P (MAP) Pulse Ox O2 Delivery O2 Flow Rate FiO2 03/22/20 10:13 99.0 03/22/20 08:21 91 98/47 03/22/20 08:10 145 03/22/20 08:00 Mechanical Ventilator 03/22/20 08:00 50 03/22/20 08:00 109 03/22/20 08:00 99.7 105 20 98/62 (74) 100 03/22/20 07:25 101 26 50 03/22/20 04:00 50 03/22/20 04:00 Mechanical Ventilator 03/22/20 04:00 100.4 110 21 125/67 (86) 100 03/22/20 04:00 108 03/22/20 03:53 99.8 03/22/20 03:01 111 20 50 03/22/20 00:00 Mechanical Ventilator 03/22/20 00:00 50 03/22/20 00:00 96 03/22/20 00:00 98.9 94 21 115/63 (80) 100 03/21/20 23:43 86 20 50 03/21/20 20:00 90 03/21/20 20:00 50 03/21/20 20:00 100.6 91 22 118/56 (76) 100 03/21/20 20:00 Mechanical Ventilator 03/21/20 19:01 97 21 50 03/21/20 18:14 101.2 03/21/20 16:00 99.6 94 22 121/65 (83) 100 03/21/20 16:00 50 03/21/20 16:00 Mechanical Ventilator 03/21/20 15:56 94 03/21/20 15:25 93 22 50 03/21/20 13:40 Mechanical Ventilator Intake and Output 03/21/20 03/22/20 19:00 07:00 Intake Total 690.0 ml 810 ml Output Total 300 ml 750 ml Balance 390.0 ml 60 ml Free Water 50 ml 150 ml IV Total 220.0 ml Tube Feeding 420 ml 660 ml Output Urine Total 300 ml 750 ml # Bowel Movements 1 1 Laboratory Tests Test 03/21/20 16:47 03/22/20 00:10 03/22/20 03:50 03/22/20 11:45 POC Whole Blood Glucose 195 MG/DL (74-106) H 175 MG/DL (74-106) H White Blood Count 15.7 K/UL (4.8-10.8) H Red Blood Count 3.49 M/UL (4.20-5.40) L Hemoglobin 9.5 G/DL (12.0-16.0) L Hematocrit 32.1 % (37.0-47.0) L Mean Corpuscular Volume 92 FL (80-99) Mean Corpuscular Hemoglobin 27.3 PG (27.0-31.0) Mean Corpuscular Hemoglobin Concent 29.7 G/DL (32.0-36.0) L Red Cell Distribution Width 17.8 % (11.6-14.8) H Platelet Count 657 K/UL (150-450) H Mean Platelet Volume 7.8 FL (6.5-10.1) Neutrophils (%) (Auto) 75.5 % (45.0-75.0) H Lymphocytes (%) (Auto) 12.5 % (20.0-45.0) L Monocytes (%) (Auto) 4.4 % (1.0-10.0) Eosinophils (%) (Auto) 6.7 % (0.0-3.0) H Basophils (%) (Auto) 0.8 % (0.0-2.0) Sodium Level 151 MMOL/L (136-145) H Potassium Level 4.2 MMOL/L (3.5-5.1) Chloride Level 116 MMOL/L (98-107) H Carbon Dioxide Level 29 MMOL/L (21-32) Anion Gap 6 mmol/L (5-15) Blood Urea Nitrogen 21 mg/dL (7-18) H Creatinine 0.9 MG/DL (0.55-1.30) Estimat Glomerular Filtration Rate > 60 mL/min (>60) Glucose Level 176 MG/DL (74-106) H Calcium Level 8.8 MG/DL (8.5-10.1) Urine Color Yellow Urine Appearance Cloudy Urine pH 5 (4.5-8.0) Urine Specific [place] 1.010 (1.005-1.035) Urine Protein 2+ (NEGATIVE) H Urine Glucose (UA) Negative (NEGATIVE) Urine Ketones Negative (NEGATIVE) Urine Blood 2+ (NEGATIVE) H Urine Nitrite Negative (NEGATIVE) Urine Bilirubin Negative (NEGATIVE) Urine Urobilinogen Normal MG/DL (0.0-1.0) Urine Leukocyte Esterase 3+ (NEGATIVE) H Urine RBC 2-4 /HPF (0 - 2) H Urine WBC 60-80 /HPF (0 - 2) H Urine Squamous Epithelial Cells Few /LPF (NONE/OCC) Urine Bacteria Few /HPF (NONE) Urine Yeast Few /HPF (NONE) H Test 03/22/20 12:10 POC Whole Blood Glucose 172 MG/DL (74-106) H Microbiology Date/Time Source Procedure Growth Status 03/21/20 05:00 Sputum Gram Stain - Final Resulted 03/21/20 05:00 Sputum Culture - Preliminary Gram Negative Bacillus 1 Gram Negative Bacillus 2 Resulted 03/20/20 09:15 Blood Blood Culture - Preliminary NO GROWTH AFTER 24 HOURS Resulted Objective HEAD AND NECK: No JVD. LUNGS: Coarse rhonchi. She is status post tracheostomy. CARDIOVASCULAR: Regular S1 and S2 with no gallop or rub. Status post PEG. EXTREMITIES: 1+ pitting edema with sacral decubitus. Shay Alejandre MD Mar 22, 2020 13:15
--- NOTE | 2020-03-22 13:24 | Nephrology Progress Note ---
Assessment/Plan Problem List: (1) Hypercalcemia (2) Hypernatremia (3) Sepsis (4) UTI (urinary tract infection) (5) Stage 4 decubitus ulcer (6) Acute on chronic respiratory failure (7) Chronic vegetative state (8) Severe protein-calorie malnutrition Assessment Azotemia and hypernatremia indicative of severe dehydration and free water deficit Acute on chronic respiratory failure, on mechanical ventilation Severe underlying anemia Sepsis Stage IV decubitus Idiopathic obstructive hydrocephalus, history of intracranial hemorrhage Diabetes mellitus Parkinson's disease, dementia Protein calorie malnutrition Plan March 22: Labs reviewed. Serum sodium 151. D5W IV given. Continue per c onsultants. March 21: Labs reviewed. Renal parameters stable. Continue per consultants. March 20: Labs reviewed. Serum sodium lower 147. Serum calcium stable. Continue as is. March 19: Labs reviewed. Serum sodium unchanged at 150. Another liter of D5W ordered. Serum calcium stable. Continue as is. March 18: Labs reviewed. Serum sodium 150. 1 L of D5W IV ordered. Serum calcium stable. Continue as is. March 17: Labs reviewed. Renal parameters stable. Continue to watch serum calcium. Continue per consultants. March 16: Labs reviewed. Serum calcium stable. Medication list reviewed. Abnormal electrolyte addressed. Continue current management. March 15: Labs reviewed. Serum calcium lowering. Abnormal electrolytes addressed. Continue per consultants. March 14: Labs reviewed. Status quo. Serum calcium lowering. Magnesium and potassium supplement ordered. Continue per current treatment plan. March 13: 1 dose of pamidronate 60 mg for high calcium IV ordered. Labs r eviewed. Medication list reviewed. Electrolytes improving. Hemoglobin higher after transfusion. Nasal calcitonin initiated March 12: D5W at 75 cc an hour Monitor electrolytes Monitor hemoglobin hematocrit Gastric support Consider transfusion Continue per orders Parameters for blood pressure medication Antibiotics per ID Subjective ROS Limited/Unobtainable: Yes Objective Objective Last 24 Hour Vital Signs Date Time Temp Pulse Resp B/P (MAP) Pulse Ox O2 Delivery O2 Flow Rate FiO2 03/22/20 10:13 99.0 03/22/20 08:21 91 98/47 03/22/20 08:10 145 03/22/20 08:00 Mechanical Ventilator 03/22/20 08:00 50 03/22/20 08:00 109 03/22/20 08:00 99.7 105 20 98/62 (74) 100 03/22/20 07:25 101 26 50 03/22/20 04:00 50 03/22/20 04:00 Mechanical Ventilator 03/22/20 04:00 100.4 110 21 125/67 (86) 100 03/22/20 04:00 108 03/22/20 03:53 99.8 03/22/20 03:01 111 20 50 03/22/20 00:00 Mechanical Ventilator 03/22/20 00:00 50 03/22/20 00:00 96 03/22/20 00:00 98.9 94 21 115/63 (80) 100 03/21/20 23:43 86 20 50 03/21/20 20:00 90 03/21/20 20:00 50 03/21/20 20:00 100.6 91 22 118/56 (76) 100 03/21/20 20:00 Mechanical Ventilator 03/21/20 19:01 97 21 50 03/21/20 18:14 101.2 03/21/20 16:00 99.6 94 22 121/65 (83) 100 03/21/20 16:00 50 03/21/20 16:00 Mechanical Ventilator 03/21/20 15:56 94 03/21/20 15:25 93 22 50 03/21/20 13:40 Mechanical Ventilator Intake and Output 03/21/20 03/22/20 19:00 07:00 Intake Total 690.0 ml 810 ml Output Total 300 ml 750 ml Balance 390.0 ml 60 ml Free Water 50 ml 150 ml IV Total 220.0 ml Tube Feeding 420 ml 660 ml Output Urine Total 300 ml 750 ml # Bowel Movements 1 1 Current Medications Medications (Trade) Dose Ordered Sig/Zaki Route PRN Reason Start Time Stop Time Status Last Admin Dose Admin Acetaminophen (Tylenol) 650 mg Q6H PRN GT Temp >100.5, Mild Pain 03/11/20 06:30 04/10/20 06:29 03/22/20 09:43 Amlodipine Besylate (Norvasc) 5 mg DAILY GT 03/21/20 09:00 04/20/20 08:59 03/21/20 09:07 Aspirin (ASA) 81 mg DAILY GT 03/11/20 09:00 04/25/20 08:59 03/18/20 08:35 Calcitonin [place] (Miacalcin) 1 sprays DAILY NASAL 03/13/20 11:00 06/11/20 10:59 03/22/20 08:20 Dextrose (Dextrose 50%) 25 ml Q30M PRN IV Hypoglycemia 03/13/20 23:30 06/11/20 23:29 Dextrose (Dextrose 50%) 50 ml Q30M PRN IV Hypoglycemia 03/13/20 23:30 06/11/20 23:29 Diphenhydramine HCl (Benadryl) 25 mg Q8H PRN ORAL Itching 03/14/20 15:00 04/13/20 14:59 03/14/20 15:50 Famotidine (Pepcid) 20 mg BID GT 03/18/20 18:00 06/09/20 08:59 03/22/20 08:20 Insulin Aspart (NovoLOG) Q6HR SUBQ 03/14/20 00:00 06/12/20 00:00 03/22/20 12:15 Levofloxacin 150 ml @ 150 mls/hr Q48H IVPB 03/22/20 09:00 03/29/20 08:59 03/22/20 08:52 Linezolid 300 ml @ 300 mls/hr Q12HR IVPB 03/22/20 13:00 03/29/20 12:59 03/22/20 13:02 Ondansetron HCl (Zofran) 4 mg Q4H PRN IVP Nausea & Vomiting 03/11/20 06:30 04/10/20 06:29 Piperacillin Sod/ Tazobactam Sod 3.375 gm/Sodium Chloride 110 ml @ 27.5 mls/hr EVERY 8 HOURS IVPB 03/17/20 22:00 03/24/20 21:59 03/22/20 05:39 Zinc Sulfate (Zinc Sulfate) 220 mg DAILY ORAL 03/13/20 09:00 03/23/20 08:59 03/22/20 08:20 Laboratory Tests 03/21/20 16:47: POC Whole Blood Glucose 195H 03/22/20 00:10: POC Whole Blood Glucose 175H 03/22/20 03:50: White Blood Count 15.7H, Red Blood Count 3.49L, Hemoglobin 9.5L, Hematocrit 32.1L, Mean Corpuscular Volume 92, Mean Corpuscular Hemoglobin 27.3, Mean Corpuscular Hemoglobin Concent 29.7L, Red Cell Distribution Width 17.8H, Platelet Count 657H, Mean Platelet Volume 7.8, Neutrophils (%) (Auto) 75.5H, Lymphocytes (%) (Auto) 12.5L, Monocytes (%) (Auto) 4.4, Eosinophils (%) (Auto) 6.7H, Basophils (%) (Auto) 0.8, Sodium Level 151H, Potassium Level 4.2, Chloride Level 116H, Carbon Dioxide Level 29, Anion Gap 6, Blood Urea Nitrogen 21H, Creatinine 0.9, Estimat Glomerular Filtration Rate > 60, Glucose Level 176H, Calcium Level 8.8 03/22/20 11:45: Urine Color Yellow, Urine Appearance Cloudy, Urine pH 5, Urine Specific [place] 1.010, Urine Protein 2+H, Urine Glucose (UA) Negative, Urine Ketones Negative, Urine Blood 2+H, Urine Nitrite Negative, Urine Bilirubin Negative, Urine Urobilinogen Normal, Urine Leukocyte Esterase 3+H, Urine RBC 2-4H, Urine WBC 60- 80H, Urine Squamous Epithelial Cells Few, Urine Bacteria Few, Urine Yeast FewH 03/22/20 12:10: POC Whole Blood Glucose 172H Height (Feet): 5 Height (Inches): 5.00 Weight (Pounds): 147 General Appearance: no apparent distress EENT: other - Trach to vent Cardiovascular: tachycardia Respiratory/Chest: decreased breath sounds Abdomen: distended Mathew Huntley MD Mar 22, 2020 13:24
--- NOTE | 2020-03-22 15:09 | NUR ---
CASE MANAGEMENT:REVIEW 03/22/20 SI: MRSA SEPSIS TRACH/VENT/GT DEPENDENT 100.4 145 20 98/62 100% ON VENT SUPPORT 50% FIO2 WBC+15.7 N+151 IS: IVF@100/HR IV LINEZOLID Q12 IV LEVAQUIN Q48 IV ZOSYN Q8HRS : STEP DOWN UNIT DCP: FROM [facility]
--- NOTE | 2020-03-22 15:53 | NUR ---
INSURANCE CLINICALS/ REVIEWS FAXED TO [facility] DIRECT [phone]
[2020-03-22 16:00] VITALS: BP 122/64
--- NOTE | 2020-03-22 16:00 | NUR ---
NURSE NOTES: Bed bath done, turned and repositioned. Afternoon medications given. Vital remain stable. Temp was 99.1. Tolerating vent setting with O2 99%. Will continue to monitor pt.
--- NOTE | 2020-03-22 17:57 | Surgery Progress Note ---
Surgery Progress Note Subjective Additional Comments labs noted no n/v exam stable dressings going well Objective Last 24 Hour Vital Signs Date Time Temp Pulse Resp B/P (MAP) Pulse Ox O2 Delivery O2 Flow Rate FiO2 03/22/20 16:00 99.7 108 18 122/64 (83) 100 03/22/20 16:00 Mechanical Ventilator 03/22/20 16:00 50 03/22/20 15:15 107 28 50 03/22/20 12:00 50 03/22/20 12:00 Mechanical Ventilator 03/22/20 12:00 99.6 103 20 113/62 (79) 100 03/22/20 11:06 103 27 50 03/22/20 10:13 99.0 03/22/20 08:21 91 98/47 03/22/20 08:10 145 03/22/20 08:00 Mechanical Ventilator 03/22/20 08:00 50 03/22/20 08:00 109 03/22/20 08:00 99.7 105 20 98/62 (74) 100 03/22/20 07:25 101 26 50 03/22/20 04:00 50 03/22/20 04:00 Mechanical Ventilator 03/22/20 04:00 100.4 110 21 125/67 (86) 100 03/22/20 04:00 108 03/22/20 03:53 99.8 03/22/20 03:01 111 20 50 03/22/20 00:00 Mechanical Ventilator 03/22/20 00:00 50 03/22/20 00:00 96 03/22/20 00:00 98.9 94 21 115/63 (80) 100 03/21/20 23:43 86 20 50 03/21/20 20:00 90 03/21/20 20:00 50 03/21/20 20:00 100.6 91 22 118/56 (76) 100 03/21/20 20:00 Mechanical Ventilator 03/21/20 19:01 97 21 50 03/21/20 18:14 101.2 I&O Intake and Output 03/21/20 03/22/20 19:00 07:00 Intake Total 690.0 ml 870 ml Output Total 300 ml 750 ml Balance 390.0 ml 120 ml Free Water 50 ml 150 ml IV Total 220.0 ml Tube Feeding 420 ml 720 ml Output Urine Total 300 ml 750 ml # Bowel Movements 1 1 Dressing: saturated Cardiovascular: RSR Respiratory: decreased breath sounds Abdomen: non-tender, present bowel sounds Extremities: no tenderness, no cyanosis Laboratory Tests Test 03/22/20 00:10 03/22/20 03:50 03/22/20 05:26 03/22/20 11:45 POC Whole Blood Glucose 175 MG/DL (74-106) H 185 MG/DL (74-106) H White Blood Count 15.7 K/UL (4.8-10.8) H Red Blood Count 3.49 M/UL (4.20-5.40) L Hemoglobin 9.5 G/DL (12.0-16.0) L Hematocrit 32.1 % (37.0-47.0) L Mean Corpuscular Volume 92 FL (80-99) Mean Corpuscular Hemoglobin 27.3 PG (27.0-31.0) Mean Corpuscular Hemoglobin Concent 29.7 G/DL (32.0-36.0) L Red Cell Distribution Width 17.8 % (11.6-14.8) H Platelet Count 657 K/UL (150-450) H Mean Platelet Volume 7.8 FL (6.5-10.1) Neutrophils (%) (Auto) 75.5 % (45.0-75.0) H Lymphocytes (%) (Auto) 12.5 % (20.0-45.0) L Monocytes (%) (Auto) 4.4 % (1.0-10.0) Eosinophils (%) (Auto) 6.7 % (0.0-3.0) H Basophils (%) (Auto) 0.8 % (0.0-2.0) Sodium Level 151 MMOL/L (136-145) H Potassium Level 4.2 MMOL/L (3.5-5.1) Chloride Level 116 MMOL/L (98-107) H Carbon Dioxide Level 29 MMOL/L (21-32) Anion Gap 6 mmol/L (5-15) Blood Urea Nitrogen 21 mg/dL (7-18) H Creatinine 0.9 MG/DL (0.55-1.30) Estimat Glomerular Filtration Rate > 60 mL/min (>60) Glucose Level 176 MG/DL (74-106) H Calcium Level 8.8 MG/DL (8.5-10.1) Urine Color Yellow Urine Appearance Cloudy Urine pH 5 (4.5-8.0) Urine Specific [place] 1.010 (1.005-1.035) Urine Protein 2+ (NEGATIVE) H Urine Glucose (UA) Negative (NEGATIVE) Urine Ketones Negative (NEGATIVE) Urine Blood 2+ (NEGATIVE) H Urine Nitrite Negative (NEGATIVE) Urine Bilirubin Negative (NEGATIVE) Urine Urobilinogen Normal MG/DL (0.0-1.0) Urine Leukocyte Esterase 3+ (NEGATIVE) H Urine RBC 2-4 /HPF (0 - 2) H Urine WBC 60-80 /HPF (0 - 2) H Urine Squamous Epithelial Cells Few /LPF (NONE/OCC) Urine Bacteria Few /HPF (NONE) Urine Yeast Few /HPF (NONE) H Test 03/22/20 12:10 03/22/20 17:42 POC Whole Blood Glucose 172 MG/DL (74-106) H 200 MG/DL (74-106) H Plan Problems: (1) Hypernatremia (2) Sepsis (3) UTI (urinary tract infection) (4) Stage 4 decubitus ulcer Assessment & Plan: Stage 4 ulcer on admission. macerated edges. serous drainage. foul odor. no active infection Tx plan: wash with NS. apply therahoney gauze and dressing daily change prn saturation CT noted. osteo in sacrum cont abx osteo chronic will monitor and asses if debridement needed ABDOMEN: Liver: Unremarkable. No mass. Gallbladder and bile ducts: Unremarkable. No calcified stones. No ductal dilation. Pancreas: Unremarkable. No mass. No ductal dilation. Spleen: Spleen is small. Adrenals: Unremarkable. No mass. Kidneys and ureters: Renal cysts and subcentimeter low-attenuation foci, too small to characterize. No hydronephrosis. Stomach and bowel: Unremarkable. No obstruction. No mucosal thickening. PELVIS: Appendix: No findings to suggest acute appendicitis. Bladder: Bladder wall thickening. Foci of gas in the bladder. Correlate for recent instrumentation versus cystitis. Reproductive: Unremarkable as visualized. ABDOMEN and PELVIS: Intraperitoneal space: Unremarkable. No free air. No significant fluid collection. Bones/joints: Sacrococcygeal decubitus ulcers with associated osteomyelitis. There is some underlying bone thinning and sclerosis in the distal sacrum and coccyx underlying the decubitus ulcers. No acute fracture. No dislocation. Soft tissues: Unremarkable. Vasculature: Moderate plaque abdominal aorta and branches. No abdominal aortic aneurysm. Lymph nodes: Unremarkable. No enlarged lymph nodes. Tubes, lines and devices: Gastrostomy tube within the gastric body. IMPRESSION: 1. Sacrococcygeal decubitus ulcers with associated osteomyelitis. 2. Small left pleural effusion. Left lower lobe atelectasis. 3. Bladder wall thickening. Foci of gas in the bladder. Correlate for recent instrumentation versus cystitis. DAILY ESTIMATED NEEDS: Needs based on Advanced wound, critical care, underweight, LICENSED PROSTHETIST/ORTHOTIST TF/ 45.5kg 30-40 kcals/kg 9460-8725 total kcals 1.5-2 g protein/kg 68-91 g total protein 30-40 mL/kg 7624-5015 total fluid mLs NUTRITION DIAGNOSIS: Increased kcal/prot needs R/T underweight status, wound healing as evidenced by pt @83% IBW w/ underweight BMI of 17.2, admitted w/ multiple wounds, including stage 4 sacral wound. CURRENT TF:Glucerna 1.2 @ 45ml/hr x 24 hrs ENTERAL NUTRITION RECOMMENDATIONS: Glucerna 1.2 @ 60ml/hr x 24 hrs to provide 1440ml, 1728kcal, 86g prot, 1159ml free water * Increase goal rate to 60ml/hr x 24 hrs to meet 100% est kcal/prot needs -> 1.9g prot/kg * HOB over 30 degrees/ water flush per MD * add Shen BID ADDITIONAL RECOMMENDATIONS: * Per SNF: HT=64" and DJ=364# vs EMR wt of 147lbs -> rec daily calibrated bedscale wt * Wound healing: TF rec @ goal will provide 100% RDI Vit C 500mg BID, ZnSO4 220gm QD x 10 days Shen BID via PEG * Monitor BGs, consider NISS: h/o DM * Monitor lytes, replete as needed (5) Chronic respiratory failure requiring continuous mechanical ventilation through tracheostomy (6) History of intracranial hemorrhage (7) Idiopathic obstructive hydrocephalus (8) Gout (9) Diabetes mellitus (10) Parkinson's disease dementia (11) Acute on chronic respiratory failure (12) Chronic vegetative state (13) Severe protein-calorie malnutrition Assessment & Plan: DAILY ESTIMATED NEEDS: Needs based on Advanced wound, critical care, underweight, LICENSED PROSTHETIST/ORTHOTIST TF/ 45.5kg 30-40 kcals/kg 8957-1619 total kcals 1.5-2 g protein/kg 68-91 g total protein 30-40 mL/kg 4829-4129 total fluid mLs NUTRITION DIAGNOSIS: Increased kcal/prot needs R/T underweight status, wound healing as evidenced by pt @83% IBW w/ underweight BMI of 17.2, admitted w/ multiple wounds, including stage 4 sacral wound. CURRENT TF:Glucerna 1.2 @ 60ml/hr x 24 hrs ENTERAL NUTRITION RECOMMENDATIONS: Glucerna 1.2 @ 60ml/hr x 24 hrs to provide 1440ml, 1728kcal, 86g prot, 1159ml free water * Maintain current TF rate as tolerated to meet 100% est kcal/prot needs -> 1.9g prot/kg. * HOB over 30 degrees/ water flush per MD * add Shen BID ADDITIONAL RECOMMENDATIONS: * Per SNF: HT=64" and PB=339# vs EMR wt of 147lbs -> Recalibrate bed scale for accurate CBW * Wound healing: TF rec @ goal will provide 100% RDI add Vit C 500mg BID, continue ZnSO4 220gm QD x 10 days Shen BID via PEG * Monitor BGs, consider NISS: h/o DM -> NISS now added * Increase water flushes for elevated Na (14) Hypercalcemia (15) Staphylococcus aureus bacteremia Assessment & Plan: unlikely related to wound checking often to ensure not worsening good local care being provided cont abx There is bilateral mostly upper lobe centrilobular emphysema. Mosaic attenuation pattern is seen throughout the bilateral upper lobes. There is consolidation and atelectasis of most of the left lower lobe. A few groundglass opacities are seen in the inferior left upper lobe. There is some compressive atelectasis at the right lung base with elevation of the right hemidiaphragm. There is a subpleural 8 mm nodular opacity in the right middle lobe. On recent abdomen pelvis CT scan, this demonstrated a cavity. The cavity is not evident currently There is a tracheostomy. The pleural spaces are clear. The heart size is normal. No pericardial effusion. No mediastinal or hilar mass or adenopathy. The ascending thoracic aorta is mildly ectatic, measuring up to 3.8 cm in diameter. The included portion of the thyroid is unremarkable. No axillary or chest wall mass or adenopathy demonstrated. There is smooth thoracic kyphosis without focal compression abnormality. The bones are unremarkable. Included upper abdominal anatomy demonstrates contrast in the colon from prior CT of the abdomen. There is a upper pole right renal cyst Impression: Centrilobular emphysema seen throughout both lungs with with an upper lobe predominance, indicating extensive COPD changes Mosaic attenuation pattern in the upper lobes probably related to COPD, although this is a nonspecific finding Dense consolidation and atelectasis of much of the left lower lobe. This could represent pneumonia. Groundglass opacities in the inferior left upper lobe. These could represent areas of acute inflammation, or could represent post inflammatory changes. 8mm nodule in the right middle lobe, also described on prior CT scan. This previously demonstrated a cavity. Cavitation currently not evident. Differential considerations include neoplasm, acute or chronic inflammatory lesion. Recommend at a minimum follow-up CT scan in 6 months Tracheostomy Kyphosis Right upper pole renal cyst Chris Hunter Mar 22, 2020 17:57
--- NOTE | 2020-03-22 18:50 | NUR ---
NURSE HAND-OFF REPORT: Important Events on Shift:None Patient Status: stable, full code Diet: Glucerna 1.2 @ 60cc/hr Pending Orders: N Pending Results/Labs:N Pending MD notification:N Latest Vital Signs: Temperature 99.7 , Pulse 108 , B/P 122 /64 , Respiratory Rate 18 , O2 SAT 100 , Mechanical Ventilator, O2 Flow Rate . Vital Sign Comment: stable EKG Rhythm: Sinus Tachycardia Rhythm change?: N MD Notified?: Zacarias Alejandre MD Response: Latest Ochoa Fall Score: 50 Fall Risk: High Risk Safety Measures: Call light Within Reach, Bed Alarm Zone 1, Side Rails Side Rails x3, Bed position Low and Locked. Fall Precautions: Yellow Socks Yellow Gown Door Sign Patient Fall Education Report given to ADILENE Sanchez.
--- NOTE | 2020-03-22 19:15 | NUR ---
NURSE NOTES: Received report from Vlad Farias, pt. in bed awake, with eyes open, appears to be non-verbal, no signs or symptoms of acute cardiac or respiratory distress noted, bed alarm on, side rails up x's 3 and safety brakes engaged, call light within easy reach, repositioned and turned pt., pt. has G tube running Glucerna 1.2 at 60cc/hr - no residual noted, Collier catheter intact and draining to gravity, pt. appears clean and dry, LFA 20G IV intact and patent- TKO, Rt. wrist 22G IV intact and patent- running D5w at 75cc/hr- one bag only per endorsement, aspiration precautions observed- HOB elevated, skin precautions observed, will continue to monitor pt. and with plan of care. Addendum: 03/22/20 at 1921 by RUPAL TRUJILLO RN RN pt. appears to be tolerating current vent settings well- AC 16, TV 400, Fio2 at 40% and peep 5- no distress noted.
[2020-03-22 20:00] VITALS: BP 138/71
--- NOTE | 2020-03-22 21:20 | General Progress Note ---
Subjective Allergies: Coded Allergies: No Known Allergies (Unverified , 03/11/20) Subjective above noted awake tolerating TF D/w daughter, Merissa, at length re OB (+) stools Daughter not interested in GI w/u given overall poor health Objective Last 24 Hour Vital Signs Date Time Temp Pulse Resp B/P (MAP) Pulse Ox O2 Delivery O2 Flow Rate FiO2 03/22/20 20:27 99.1 03/22/20 20:00 Mechanical Ventilator 03/22/20 20:00 50 03/22/20 20:00 101.0 109 22 138/71 (93) 100 03/22/20 19:07 109 03/22/20 18:55 112 26 50 03/22/20 16:00 99.7 108 18 122/64 (83) 100 03/22/20 16:00 Mechanical Ventilator 03/22/20 16:00 50 03/22/20 15:15 107 28 50 03/22/20 15:14 104 03/22/20 12:00 50 03/22/20 12:00 Mechanical Ventilator 03/22/20 12:00 99.6 103 20 113/62 (79) 100 03/22/20 11:06 103 27 50 03/22/20 10:13 99.0 03/22/20 08:21 91 98/47 03/22/20 08:10 145 03/22/20 08:00 Mechanical Ventilator 03/22/20 08:00 50 03/22/20 08:00 109 03/22/20 08:00 99.7 105 20 98/62 (74) 100 03/22/20 07:25 101 26 50 03/22/20 04:00 50 03/22/20 04:00 Mechanical Ventilator 03/22/20 04:00 100.4 110 21 125/67 (86) 100 03/22/20 04:00 108 03/22/20 03:53 99.8 03/22/20 03:01 111 20 50 03/22/20 00:00 Mechanical Ventilator 03/22/20 00:00 50 03/22/20 00:00 96 03/22/20 00:00 98.9 94 21 115/63 (80) 100 03/21/20 23:43 86 20 50 Intake and Output 03/21/20 03/22/20 19:00 07:00 Intake Total 690.0 ml 870 ml Output Total 300 ml 750 ml Balance 390.0 ml 120 ml Free Water 50 ml 150 ml IV Total 220.0 ml Tube Feeding 420 ml 720 ml Output Urine Total 300 ml 750 ml # Bowel Movements 1 1 Laboratory Tests 03/22/20 00:10: POC Whole Blood Glucose 175H 03/22/20 03:50: White Blood Count 15.7H, Red Blood Count 3.49L, Hemoglobin 9.5L, Hematocrit 32.1L, Mean Corpuscular Volume 92, Mean Corpuscular Hemoglobin 27.3, Mean Corpu scular Hemoglobin Concent 29.7L, Red Cell Distribution Width 17.8H, Platelet Count 657H, Mean Platelet Volume 7.8, Neutrophils (%) (Auto) 75.5H, Lymphocytes (%) (Auto) 12.5L, Monocytes (%) (Auto) 4.4, Eosinophils (%) (Auto) 6.7H, Basophils (%) (Auto) 0.8, Sodium Level 151H, Potassium Level 4.2, Chloride Level 116H, Carbon Dioxide Level 29, Anion Gap 6, Blood Urea Nitrogen 21H, Creatinine 0.9, Estimat Glomerular Filtration Rate > 60, Glucose Level 176H, Calcium Level 8.8 03/22/20 05:26: POC Whole Blood Glucose 185H 03/22/20 11:45: Urine Color Yellow, Urine Appearance Cloudy, Urine pH 5, Urine Specific [place] 1.010, Urine Protein 2+H, Urine Glucose (UA) Negative, Urine Ketones Negative, Urine Blood 2+H, Urine Nitrite Negative, Urine Bilirubin Negative, Urine Urobilinogen Normal, Urine Leukocyte Esterase 3+H, Urine RBC 2-4H, Urine WBC 60- 80H, Urine Squamous Epithelial Cells Few, Urine Bacteria Few, Urine Yeast FewH 03/22/20 12:10: POC Whole Blood Glucose 172H 03/22/20 17:42: POC Whole Blood Glucose 200H Height (Feet): 5 Height (Inches): 5.00 Weight (Pounds): 147 Objective elderly woman NCAT supple CTA RR abd soft, (+)GT no edema Assessment/Plan Assessment/Plan: Assessment History of intracranial hemorrhage, s/p gastrostomy, OB (+) stools status post tracheostomy, chronic obstructive pulmonary disease, type 2 diabetes, Parkinson's, gout, glaucoma, history of stage IV sacral decubitus ulceration, gout. Recommendations - continue TF - GT care - elevate HOB - Monitor H&H - no GI w/u per family decision Deanne Rivera MD Mar 22, 2020 21:20
[2020-03-23] VITALS: BP 130/70
--- NOTE | 2020-03-23 | NUR ---
NURSE NOTES: bed bath given, linens changed, oral care provided, repositioned and turned pt.- pt.appears to be sating well on current vent settings well at 100%- skin and aspiration precautions observed. will continue to monitor pt. and with plan of care.
[2020-03-23 04:00] VITALS: BP 131/72
[2020-03-23] MEDS: Acetaminophen 650mg/20.3ml GT PRN ×2 (04:27→10:33)
[2020-03-23 04:56] LABS: HEMATOCRIT 32.3 % (37.0-47.0); HEMOGLOBIN 9.6 G/DL (12.0-16.0); LYMPHOCYTES % (AUTO) 10.6 % (20.0-45.0); MEAN CORPUSCULAR VOLUME 92 FL (80-99); NEUTROPHILS % (AUTO) 77.4 % (45.0-75.0); PLATELET COUNT 646 K/UL (150-450); RED BLOOD COUNT 3.51 M/UL (4.20-5.40); RED CELL DISTRIBUTION WIDTH 17.6 % (11.6-14.8); WHITE BLOOD COUNT 16.2 K/UL (4.8-10.8)
[2020-03-23] MEDS: Piperacillin/Tazobactam 3.375 GM in NS 110 ML IVPB SCH ×3 (05:22→22:10)
[2020-03-23] MEDS: NovoLOG Insulin Flexpen SUBQ SCH ×3 (05:23→17:02)
[2020-03-23 05:43] LABS: ALANINE AMINOTRANSFERASE 16 U/L (12-78); ALBUMIN 1.4 G/DL (3.4-5.0); ALBUMIN/GLOBULIN RATIO 0.2 (1.0-2.7); ALKALINE PHOSPHATASE 89 U/L (46-116); ASPARTATE AMINO TRANSFERASE 12 U/L (15-37); BILIRUBIN,TOTAL 0.2 MG/DL (0.2-1.0); BLOOD UREA NITROGEN 15 mg/dL (7-18); CALCIUM 8.7 MG/DL (8.5-10.1); CARBON DIOXIDE 33 MMOL/L (21-32); CHLORIDE 110 MMOL/L (98-107); CREATININE 0.9 MG/DL (0.55-1.30); PHOSPHORUS 2.7 MG/DL (2.5-4.9); POTASSIUM 4.3 MMOL/L (3.5-5.1); SODIUM 145 MMOL/L (136-145)
--- NOTE | 2020-03-23 07:19 | NUR ---
NURSE HAND-OFF REPORT: Important Events on Shift:fever- now temp 99.1 Patient Status: fair Diet: Glucerna 1.2 Pending Orders: Pending Results/Labs: Pending MD notification: Latest Vital Signs: Temperature 99.2 , Pulse 95 , B/P 131 /72 , Respiratory Rate 24 , O2 SAT 100 , Mechanical Ventilator, O2 Flow Rate . Vital Sign Comment: EKG Rhythm: Sinus Tachycardia Rhythm change?: N MD Notified?: MD Response: Latest Ochoa Fall Score: 50 Fall Risk: High Risk Safety Measures: Call light Within Reach, Bed Alarm Zone 1, Side Rails Side Rails x3, Bed position Low and Locked. Fall Precautions: Yellow Socks Yellow Gown Door Sign Patient Fall Education Report given to Saran, Rn, pt. remains stable and no signs of distress noted. aware to f/u on any abnormal am labs.
--- NOTE | 2020-03-23 07:21 | NUR ---
NURSE NOTES: Received report from ADILENE Sanchez. Patient is resting in bed, in stable condition. No s/sx of SOB, breathing is even and unlabored, on vent settings as ordered. Bed is in lowest position, brakes engaged. Call light is kept within easy reach. Will continue to monitor patient.
[2020-03-23 08:00] VITALS: BP 122/64
[2020-03-23] MEDS: Aspirin Baby 81mg GT SCH (08:06)
--- NOTE | 2020-03-23 10:36 | Cardiac Electrophysiology PN ---
Assessment/Plan Assessment/Plan 1. MRSA bacteremia. Most recent blood culture from March 13, 2020 showed no growth. Echocardiogram showed ejection fraction of 60-65% with no clear vegetation. DEBBIE cancelled as family refused. On iv Abx 2. VDRF , status post tracheostomy.On 40% Fio2 3. Dysphagia, status post PEG placement. 4. History of intracranial hemorrhage. 5. COPD. 6. Diabetes. 7. Glaucoma. 8. Sacral decubitus stage IV. 9. Hypertension, on amlodipine 10 mg daily. 10. Transient SVT DW RN and Dr. Shirley Villegas Subjective Subjective Off pressors on the Vent in sinus tach Fio2 40% and PEEP 5. Family refused DEBBIE. Had episodes of SVT lasting less than 20 seconds Objective Last 24 Hour Vital Signs Date Time Temp Pulse Resp B/P (MAP) Pulse Ox O2 Delivery O2 Flow Rate FiO2 03/23/20 08:13 95 122/64 03/23/20 08:00 92 03/23/20 08:00 50 03/23/20 08:00 99.0 95 18 122/64 (83) 100 03/23/20 08:00 Mechanical Ventilator 03/23/20 04:57 99.2 03/23/20 04:00 50 03/23/20 04:00 Mechanical Ventilator 03/23/20 04:00 100.8 95 24 131/72 (91) 100 03/23/20 03:27 101 03/23/20 02:49 97 24 50 03/23/20 00:00 Mechanical Ventilator 03/23/20 00:00 50 03/23/20 00:00 97.9 98 22 130/70 (90) 100 03/22/20 23:30 103 03/22/20 22:49 85 17 50 03/22/20 20:27 99.1 03/22/20 20:00 Mechanical Ventilator 03/22/20 20:00 50 03/22/20 20:00 101.0 109 22 138/71 (93) 100 03/22/20 19:07 109 03/22/20 18:55 112 26 50 03/22/20 16:00 99.7 108 18 122/64 (83) 100 03/22/20 16:00 Mechanical Ventilator 03/22/20 16:00 50 03/22/20 15:15 107 28 50 03/22/20 15:14 104 03/22/20 12:00 50 03/22/20 12:00 Mechanical Ventilator 03/22/20 12:00 99.6 103 20 113/62 (79) 100 03/22/20 11:06 103 27 50 Intake and Output 03/22/20 03/23/20 19:00 07:00 Intake Total 980 ml 1907.5 ml Output Total 500 ml 750 ml Balance 480 ml 1157.5 ml Free Water 160 ml 50 ml IV Total 100 ml 1137.5 ml Tube Feeding 720 ml 720 ml Output Urine Total 500 ml 750 ml # Bowel Movements 1 Laboratory Tests Test 03/22/20 11:45 03/22/20 12:10 03/22/20 17:42 03/22/20 22:55 Urine Color Yellow Urine Appearance Cloudy Urine pH 5 (4.5-8.0) Urine Specific [place] 1.010 (1.005-1.035) Urine Protein 2+ (NEGATIVE) H Urine Glucose (UA) Negative (NEGATIVE) Urine Ketones Negative (NEGATIVE) Urine Blood 2+ (NEGATIVE) H Urine Nitrite Negative (NEGATIVE) Urine Bilirubin Negative (NEGATIVE) Urine Urobilinogen Normal MG/DL (0.0-1.0) Urine Leukocyte Esterase 3+ (NEGATIVE) H Urine RBC 2-4 /HPF (0 - 2) H Urine WBC 60-80 /HPF (0 - 2) H Urine Squamous Epithelial Cells Few /LPF (NONE/OCC) Urine Bacteria Few /HPF (NONE) Urine Yeast Few /HPF (NONE) H POC Whole Blood Glucose 172 MG/DL (74-106) H 200 MG/DL (74-106) H Pending Test 03/23/20 03:15 03/23/20 04:46 White Blood Count 16.2 K/UL (4.8-10.8) H Red Blood Count 3.51 M/UL (4.20-5.40) L Hemoglobin 9.6 G/DL (12.0-16.0) L Hematocrit 32.3 % (37.0-47.0) L Mean Corpuscular Volume 92 FL (80-99) Mean Corpuscular Hemoglobin 27.4 PG (27.0-31.0) Mean Corpuscular Hemoglobin Concent 29.8 G/DL (32.0-36.0) L Red Cell Distribution Width 17.6 % (11.6-14.8) H Platelet Count 646 K/UL (150-450) H Mean Platelet Volume 7.6 FL (6.5-10.1) Neutrophils (%) (Auto) 77.4 % (45.0-75.0) H Lymphocytes (%) (Auto) 10.6 % (20.0-45.0) L Monocytes (%) (Auto) 5.0 % (1.0-10.0) Eosinophils (%) (Auto) 6.0 % (0.0-3.0) H Basophils (%) (Auto) 1.0 % (0.0-2.0) Sodium Level 145 MMOL/L (136-145) Potassium Level 4.3 MMOL/L (3.5-5.1) Chloride Level 110 MMOL/L (98-107) H Carbon Dioxide Level 33 MMOL/L (21-32) H Blood Urea Nitrogen 15 mg/dL (7-18) Creatinine 0.9 MG/DL (0.55-1.30) Estimat Glomerular Filtration Rate > 60 mL/min (>60) Glucose Level 203 MG/DL (74-106) H Calcium Level 8.7 MG/DL (8.5-10.1) Phosphorus Level 2.7 MG/DL (2.5-4.9) Magnesium Level 2.1 MG/DL (1.8-2.4) Total Bilirubin 0.2 MG/DL (0.2-1.0) Aspartate Amino Transf (AST/SGOT) 12 U/L (15-37) L Alanine Aminotransferase (ALT/SGPT) 16 U/L (12-78) Alkaline Phosphatase 89 U/L (46-116) C-Reactive Protein, Quantitative 15.8 mg/dL (0.00-0.90) H Total Protein 7.3 G/DL (6.4-8.2) Albumin 1.4 G/DL (3.4-5.0) L Globulin 5.9 g/dL Albumin/Globulin Ratio 0.2 (1.0-2.7) L POC Whole Blood Glucose 188 MG/DL (74-106) H Microbiology Date/Time Source Procedure Growth Status 03/22/20 11:45 Indwelling Cath Urine Culture - Preliminary NO GROWTH Resulted 03/21/20 05:00 Sputum Gram Stain - Final Resulted 03/21/20 05:00 Sputum Culture - Preliminary Serratia Marcescens Gram Negative Bacillus 2 Resulted Objective HEAD AND NECK: No JVD. LUNGS: Coarse rhonchi. Status post tracheostomy. CARDIOVASCULAR: Regular S1 and S2 with no gallop or rub. Status post PEG. EXTREMITIES: 1+ pitting edema with sacral decubitus. Shay Alejandre MD Mar 23, 2020 10:36
--- NOTE | 2020-03-23 11:23 | Pulmonolgy Critical Care Note ---
Critical Care - Asmt/Plan Problems: (1) Acute on chronic respiratory failure (2) Staphylococcus aureus bacteremia (3) Sepsis (4) Chronic respiratory failure requiring continuous mechanical ventilation through tracheostomy (5) Stage 4 decubitus ulcer (6) Diabetes mellitus (7) Parkinson's disease dementia (8) Gout (9) Idiopathic obstructive hydrocephalus (10) Severe protein-calorie malnutrition (11) History of intracranial hemorrhage (12) Chronic vegetative state Respiratory: monitor respiratory rate, adjust FIO2, CXR Cardiac: continue pressors, continue to monitor HR/BP Renal: F/U I&O, keep IV fluid, check electrolytes Infectious Disease: check cultures Gastrointestinal: continue feedings/current rate Endocrine: monitor blood sugar, continue sliding scale insulin Hematologic: monitor H/H, transfuse if hgb<8.5 Neurologic: PRN Ativan, keep patient comfortable Affect: PRN ativan Prophylaxis: Protonix Time Spent (Minutes): 40 Notes Reviewed: dipper clock and watch hands, cardio Discussed with: nurses, consultants, case workerinsurance risk manager - Objective Last 24 Hour Vital Signs Date Time Temp Pulse Resp B/P (MAP) Pulse Ox O2 Delivery O2 Flow Rate FiO2 03/23/20 08:13 95 122/64 03/23/20 08:00 92 03/23/20 08:00 50 03/23/20 08:00 99.0 95 18 122/64 (83) 100 03/23/20 08:00 Mechanical Ventilator 03/23/20 04:57 99.2 03/23/20 04:00 50 03/23/20 04:00 Mechanical Ventilator 03/23/20 04:00 100.8 95 24 131/72 (91) 100 03/23/20 03:27 101 03/23/20 02:49 97 24 50 03/23/20 00:00 Mechanical Ventilator 03/23/20 00:00 50 03/23/20 00:00 97.9 98 22 130/70 (90) 100 03/22/20 23:30 103 03/22/20 22:49 85 17 50 03/22/20 20:27 99.1 03/22/20 20:00 Mechanical Ventilator 03/22/20 20:00 50 03/22/20 20:00 101.0 109 22 138/71 (93) 100 03/22/20 19:07 109 03/22/20 18:55 112 26 50 03/22/20 16:00 99.7 108 18 122/64 (83) 100 03/22/20 16:00 Mechanical Ventilator 03/22/20 16:00 50 03/22/20 15:15 107 28 50 03/22/20 15:14 104 03/22/20 12:00 50 03/22/20 12:00 Mechanical Ventilator 03/22/20 12:00 99.6 103 20 113/62 (79) 100 Status: awake Condition: critical HEENT: atraumatic Neck: full ROM Lungs: clear Heart: HR/BP stable Abdomen: soft, non-tender Extremities: no C/C/E Micro: Microbiology Date/Time Source Procedure Growth Status 03/22/20 11:45 Indwelling Cath Urine Culture - Preliminary NO GROWTH Resulted 03/21/20 05:00 Sputum Gram Stain - Final Resulted 03/21/20 05:00 Sputum Culture - Preliminary Serratia Marcescens Gram Negative Bacillus 2 Resulted Accucheck: 188 Critical Care - Subjective ROS Limited/Unobtainable: Yes Condition: critical EKG Rhythm: Sinus Rhythm FI02: 50 Vent Support Breath Rate: 16 Vent Support Mode: AC Vent Tidal Volume: 400 Sputum Amount: Small PEEP: 5.0 PIP: 23 Tube Feeding Amount: 60 I&O: Intake and Output 03/22/20 03/23/20 19:00 07:00 Intake Total 980 ml 1907.5 ml Output Total 500 ml 750 ml Balance 480 ml 1157.5 ml Free Water 160 ml 50 ml IV Total 100 ml 1137.5 ml Tube Feeding 720 ml 720 ml Output Urine Total 500 ml 750 ml # Bowel Movements 1 CXR: no changes Labs: Laboratory Tests Test 03/22/20 11:45 03/22/20 12:10 03/22/20 17:42 03/22/20 22:55 Urine Color Yellow Urine Appearance Cloudy Urine pH 5 (4.5-8.0) Urine Specific [place] 1.010 (1.005-1.035) Urine Protein 2+ (NEGATIVE) H Urine Glucose (UA) Negative (NEGATIVE) Urine Ketones Negative (NEGATIVE) Urine Blood 2+ (NEGATIVE) H Urine Nitrite Negative (NEGATIVE) Urine Bilirubin Negative (NEGATIVE) Urine Urobilinogen Normal MG/DL (0.0-1.0) Urine Leukocyte Esterase 3+ (NEGATIVE) H Urine RBC 2-4 /HPF (0 - 2) H Urine WBC 60-80 /HPF (0 - 2) H Urine Squamous Epithelial Cells Few /LPF (NONE/OCC) Urine Bacteria Few /HPF (NONE) Urine Yeast Few /HPF (NONE) H POC Whole Blood Glucose 172 MG/DL (74-106) H 200 MG/DL (74-106) H Pending Test 03/23/20 03:15 03/23/20 04:46 White Blood Count 16.2 K/UL (4.8-10.8) H Red Blood Count 3.51 M/UL (4.20-5.40) L Hemoglobin 9.6 G/DL (12.0-16.0) L Hematocrit 32.3 % (37.0-47.0) L Mean Corpuscular Volume 92 FL (80-99) Mean Corpuscular Hemoglobin 27.4 PG (27.0-31.0) Mean Corpuscular Hemoglobin Concent 29.8 G/DL (32.0-36.0) L Red Cell Distribution Width 17.6 % (11.6-14.8) H Platelet Count 646 K/UL (150-450) H Mean Platelet Volume 7.6 FL (6.5-10.1) Neutrophils (%) (Auto) 77.4 % (45.0-75.0) H Lymphocytes (%) (Auto) 10.6 % (20.0-45.0) L Monocytes (%) (Auto) 5.0 % (1.0-10.0) Eosinophils (%) (Auto) 6.0 % (0.0-3.0) H Basophils (%) (Auto) 1.0 % (0.0-2.0) Sodium Level 145 MMOL/L (136-145) Potassium Level 4.3 MMOL/L (3.5-5.1) Chloride Level 110 MMOL/L (98-107) H Carbon Dioxide Level 33 MMOL/L (21-32) H Blood Urea Nitrogen 15 mg/dL (7-18) Creatinine 0.9 MG/DL (0.55-1.30) Estimat Glomerular Filtration Rate > 60 mL/min (>60) Glucose Level 203 MG/DL (74-106) H Calcium Level 8.7 MG/DL (8.5-10.1) Phosphorus Level 2.7 MG/DL (2.5-4.9) Magnesium Level 2.1 MG/DL (1.8-2.4) Total Bilirubin 0.2 MG/DL (0.2-1.0) Aspartate Amino Transf (AST/SGOT) 12 U/L (15-37) L Alanine Aminotransferase (ALT/SGPT) 16 U/L (12-78) Alkaline Phosphatase 89 U/L (46-116) C-Reactive Protein, Quantitative 15.8 mg/dL (0.00-0.90) H Total Protein 7.3 G/DL (6.4-8.2) Albumin 1.4 G/DL (3.4-5.0) L Globulin 5.9 g/dL Albumin/Globulin Ratio 0.2 (1.0-2.7) L POC Whole Blood Glucose 188 MG/DL (74-106) H Patti Matta MD Mar 23, 2020 11:23
--- NOTE | 2020-03-23 11:30 | Surgery Progress Note ---
Surgery Progress Note Subjective Additional Comments febrile leukocytosis no n/v Objective Last 24 Hour Vital Signs Date Time Temp Pulse Resp B/P (MAP) Pulse Ox O2 Delivery O2 Flow Rate FiO2 03/23/20 08:13 95 122/64 03/23/20 08:00 92 03/23/20 08:00 50 03/23/20 08:00 99.0 95 18 122/64 (83) 100 03/23/20 08:00 Mechanical Ventilator 03/23/20 04:57 99.2 03/23/20 04:00 50 03/23/20 04:00 Mechanical Ventilator 03/23/20 04:00 100.8 95 24 131/72 (91) 100 03/23/20 03:27 101 03/23/20 02:49 97 24 50 03/23/20 00:00 Mechanical Ventilator 03/23/20 00:00 50 03/23/20 00:00 97.9 98 22 130/70 (90) 100 03/22/20 23:30 103 03/22/20 22:49 85 17 50 03/22/20 20:27 99.1 03/22/20 20:00 Mechanical Ventilator 03/22/20 20:00 50 03/22/20 20:00 101.0 109 22 138/71 (93) 100 03/22/20 19:07 109 03/22/20 18:55 112 26 50 03/22/20 16:00 99.7 108 18 122/64 (83) 100 03/22/20 16:00 Mechanical Ventilator 03/22/20 16:00 50 03/22/20 15:15 107 28 50 03/22/20 15:14 104 03/22/20 12:00 50 03/22/20 12:00 Mechanical Ventilator 03/22/20 12:00 99.6 103 20 113/62 (79) 100 I&O Intake and Output 03/22/20 03/23/20 19:00 07:00 Intake Total 980 ml 1907.5 ml Output Total 500 ml 750 ml Balance 480 ml 1157.5 ml Free Water 160 ml 50 ml IV Total 100 ml 1137.5 ml Tube Feeding 720 ml 720 ml Output Urine Total 500 ml 750 ml # Bowel Movements 1 Dressing: other Wound: other Cardiovascular: RSR Respiratory: decreased breath sounds Abdomen: soft, non-tender, present bowel sounds, non-distended Extremities: no tenderness, no cyanosis Laboratory Tests Test 03/22/20 11:45 03/22/20 12:10 03/22/20 17:42 03/22/20 22:55 Urine Color Yellow Urine Appearance Cloudy Urine pH 5 (4.5-8.0) Urine Specific [place] 1.010 (1.005-1.035) Urine Protein 2+ (NEGATIVE) H Urine Glucose (UA) Negative (NEGATIVE) Urine Ketones Negative (NEGATIVE) Urine Blood 2+ (NEGATIVE) H Urine Nitrite Negative (NEGATIVE) Urine Bilirubin Negative (NEGATIVE) Urine Urobilinogen Normal MG/DL (0.0-1.0) Urine Leukocyte Esterase 3+ (NEGATIVE) H Urine RBC 2-4 /HPF (0 - 2) H Urine WBC 60-80 /HPF (0 - 2) H Urine Squamous Epithelial Cells Few /LPF (NONE/OCC) Urine Bacteria Few /HPF (NONE) Urine Yeast Few /HPF (NONE) H POC Whole Blood Glucose 172 MG/DL (74-106) H 200 MG/DL (74-106) H Pending Test 03/23/20 03:15 03/23/20 04:46 White Blood Count 16.2 K/UL (4.8-10.8) H Red Blood Count 3.51 M/UL (4.20-5.40) L Hemoglobin 9.6 G/DL (12.0-16.0) L Hematocrit 32.3 % (37.0-47.0) L Mean Corpuscular Volume 92 FL (80-99) Mean Corpuscular Hemoglobin 27.4 PG (27.0-31.0) Mean Corpuscular Hemoglobin Concent 29.8 G/DL (32.0-36.0) L Red Cell Distribution Width 17.6 % (11.6-14.8) H Platelet Count 646 K/UL (150-450) H Mean Platelet Volume 7.6 FL (6.5-10.1) Neutrophils (%) (Auto) 77.4 % (45.0-75.0) H Lymphocytes (%) (Auto) 10.6 % (20.0-45.0) L Monocytes (%) (Auto) 5.0 % (1.0-10.0) Eosinophils (%) (Auto) 6.0 % (0.0-3.0) H Basophils (%) (Auto) 1.0 % (0.0-2.0) Sodium Level 145 MMOL/L (136-145) Potassium Level 4.3 MMOL/L (3.5-5.1) Chloride Level 110 MMOL/L (98-107) H Carbon Dioxide Level 33 MMOL/L (21-32) H Blood Urea Nitrogen 15 mg/dL (7-18) Creatinine 0.9 MG/DL (0.55-1.30) Estimat Glomerular Filtration Rate > 60 mL/min (>60) Glucose Level 203 MG/DL (74-106) H Calcium Level 8.7 MG/DL (8.5-10.1) Phosphorus Level 2.7 MG/DL (2.5-4.9) Magnesium Level 2.1 MG/DL (1.8-2.4) Total Bilirubin 0.2 MG/DL (0.2-1.0) Aspartate Amino Transf (AST/SGOT) 12 U/L (15-37) L Alanine Aminotransferase (ALT/SGPT) 16 U/L (12-78) Alkaline Phosphatase 89 U/L (46-116) C-Reactive Protein, Quantitative 15.8 mg/dL (0.00-0.90) H Total Protein 7.3 G/DL (6.4-8.2) Albumin 1.4 G/DL (3.4-5.0) L Globulin 5.9 g/dL Albumin/Globulin Ratio 0.2 (1.0-2.7) L POC Whole Blood Glucose 188 MG/DL (74-106) H Plan Problems: (1) Hypernatremia (2) Sepsis (3) UTI (urinary tract infection) (4) Stage 4 decubitus ulcer Assessment & Plan: Stage 4 ulcer on admission. macerated edges. serous drainage. foul odor. no active infection Tx plan: wash with NS. apply therahoney gauze and dressing daily change prn saturation CT noted. osteo in sacrum cont abx osteo chronic will monitor and asses if debridement needed ABDOMEN: Liver: Unremarkable. No mass. Gallbladder and bile ducts: Unremarkable. No calcified stones. No ductal dilation. Pancreas: Unremarkable. No mass. No ductal dilation. Spleen: Spleen is small. Adrenals: Unremarkable. No mass. Kidneys and ureters: Renal cysts and subcentimeter low-attenuation foci, too small to characterize. No hydronephrosis. Stomach and bowel: Unremarkable. No obstruction. No mucosal thickening. PELVIS: Appendix: No findings to suggest acute appendicitis. Bladder: Bladder wall thickening. Foci of gas in the bladder. Correlate for recent instrumentation versus cystitis. Reproductive: Unremarkable as visualized. ABDOMEN and PELVIS: Intraperitoneal space: Unremarkable. No free air. No significant fluid collection. Bones/joints: Sacrococcygeal decubitus ulcers with associated osteomyelitis. There is some underlying bone thinning and sclerosis in the distal sacrum and coccyx underlying the decubitus ulcers. No acute fracture. No dislocation. Soft tissues: Unremarkable. Vasculature: Moderate plaque abdominal aorta and branches. No abdominal aortic aneurysm. Lymph nodes: Unremarkable. No enlarged lymph nodes. Tubes, lines and devices: Gastrostomy tube within the gastric body. IMPRESSION: 1. Sacrococcygeal decubitus ulcers with associated osteomyelitis. 2. Small left pleural effusion. Left lower lobe atelectasis. 3. Bladder wall thickening. Foci of gas in the bladder. Correlate for recent instrumentation versus cystitis. DAILY ESTIMATED NEEDS: Needs based on Advanced wound, critical care, underweight, HOME SPECIALIST TF/ 45.5kg 30-40 kcals/kg 3677-9523 total kcals 1.5-2 g protein/kg 68-91 g total protein 30-40 mL/kg 1404-6581 total fluid mLs NUTRITION DIAGNOSIS: Increased kcal/prot needs R/T underweight status, wound healing as evidenced by pt @83% IBW w/ underweight BMI of 17.2, admitted w/ multiple wounds, including stage 4 sacral wound. CURRENT TF:Glucerna 1.2 @ 45ml/hr x 24 hrs ENTERAL NUTRITION RECOMMENDATIONS: Glucerna 1.2 @ 60ml/hr x 24 hrs to provide 1440ml, 1728kcal, 86g prot, 1159ml free water * Increase goal rate to 60ml/hr x 24 hrs to meet 100% est kcal/prot needs -> 1.9g prot/kg * HOB over 30 degrees/ water flush per MD * add Shen BID ADDITIONAL RECOMMENDATIONS: * Per SNF: HT=64" and EN=676# vs EMR wt of 147lbs -> rec daily calibrated bedscale wt * Wound healing: TF rec @ goal will provide 100% RDI Vit C 500mg BID, ZnSO4 220gm QD x 10 days Shen BID via PEG * Monitor BGs, consider NISS: h/o DM * Monitor lytes, replete as needed (5) Chronic respiratory failure requiring continuous mechanical ventilation through tracheostomy (6) History of intracranial hemorrhage (7) Idiopathic obstructive hydrocephalus (8) Gout (9) Diabetes mellitus (10) Parkinson's disease dementia (11) Acute on chronic respiratory failure (12) Chronic vegetative state (13) Severe protein-calorie malnutrition Assessment & Plan: DAILY ESTIMATED NEEDS: Needs based on Advanced wound, critical care, underweight, HOME SPECIALIST TF/ 45.5kg 30-40 kcals/kg 2453-6950 total kcals 1.5-2 g protein/kg 68-91 g total protein 30-40 mL/kg 1127-0192 total fluid mLs NUTRITION DIAGNOSIS: Increased kcal/prot needs R/T underweight status, wound healing as evidenced by pt @83% IBW w/ underweight BMI of 17.2, admitted w/ multiple wounds, including stage 4 sacral wound. CURRENT TF:Glucerna 1.2 @ 60ml/hr x 24 hrs ENTERAL NUTRITION RECOMMENDATIONS: Glucerna 1.2 @ 60ml/hr x 24 hrs to provide 1440ml, 1728kcal, 86g prot, 1159ml free water * Maintain current TF rate as tolerated to meet 100% est kcal/prot needs -> 1.9g prot/kg. * HOB over 30 degrees/ water flush per MD * add Shen BID ADDITIONAL RECOMMENDATIONS: * Per SNF: HT=64" and DQ=130# vs EMR wt of 147lbs -> Recalibrate bed scale for accurate CBW * Wound healing: TF rec @ goal will provide 100% RDI add Vit C 500mg BID, continue ZnSO4 220gm QD x 10 days Shen BID via PEG * Monitor BGs, consider NISS: h/o DM -> NISS now added * Increase water flushes for elevated Na (14) Hypercalcemia (15) Staphylococcus aureus bacteremia Assessment & Plan: unlikely related to wound checking often to ensure not worsening good local care being provided cont abx There is bilateral mostly upper lobe centrilobular emphysema. Mosaic attenuation pattern is seen throughout the bilateral upper lobes. There is consolidation and atelectasis of most of the left lower lobe. A few groundglass opacities are seen in the inferior left upper lobe. There is some compressive atelectasis at the right lung base with elevation of the right hemidiaphragm. There is a subpleural 8 mm nodular opacity in the right middle lobe. On recent abdomen pelvis CT scan, this demonstrated a cavity. The cavity is not evident currently There is a tracheostomy. The pleural spaces are clear. The heart size is normal. No pericardial effusion. No mediastinal or hilar mass or adenopathy. The ascending thoracic aorta is mildly ectatic, measuring up to 3.8 cm in diameter. The included portion of the thyroid is unremarkable. No axillary or chest wall mass or adenopathy demonstrated. There is smooth thoracic kyphosis without focal compression abnormality. The bones are unremarkable. Included upper abdominal anatomy demonstrates contrast in the colon from prior CT of the abdomen. There is a upper pole right renal cyst Impression: Centrilobular emphysema seen throughout both lungs with with an upper lobe predominance, indicating extensive COPD changes Mosaic attenuation pattern in the upper lobes probably related to COPD, although this is a nonspecific finding Dense consolidation and atelectasis of much of the left lower lobe. This could represent pneumonia. Groundglass opacities in the inferior left upper lobe. These could represent areas of acute inflammation, or could represent post inflammatory changes. 8mm nodule in the right middle lobe, also described on prior CT scan. This previously demonstrated a cavity. Cavitation currently not evident. Differential considerations include neoplasm, acute or chronic inflammatory lesion. Recommend at a minimum follow-up CT scan in 6 months Tracheostomy Kyphosis Right upper pole renal cyst Chris Hunter Mar 23, 2020 11:30
--- NOTE | 2020-03-23 11:30 | Nephrology Progress Note ---
Assessment/Plan Problem List: (1) Hypercalcemia (2) Hypernatremia (3) Sepsis (4) UTI (urinary tract infection) (5) Stage 4 decubitus ulcer (6) Acute on chronic respiratory failure (7) Chronic vegetative state (8) Severe protein-calorie malnutrition Assessment Azotemia and hypernatremia indicative of severe dehydration and free water deficit Acute on chronic respiratory failure, on mechanical ventilation Severe underlying anemia Sepsis Stage IV decubitus Idiopathic obstructive hydrocephalus, history of intracranial hemorrhage Diabetes mellitus Parkinson's disease, dementia Protein calorie malnutrition Plan March 23: Labs reviewed. Renal parameters are stable. Continue per consu ltants. March 22: Labs reviewed. Serum sodium 151. D5W IV given. Continue per consultants. March 21: Labs reviewed. Renal parameters stable. Continue per consultants. March 20: Labs reviewed. Serum sodium lower 147. Serum calcium stable. C ontinue as is. March 19: Labs reviewed. Serum sodium unchanged at 150. Another liter of D5W ordered. Serum calcium stable. Continue as is. March 18: Labs reviewed. Serum sodium 150. 1 L of D5W IV ordered. Serum calcium stable. Continue as is. March 17: Labs reviewed. Renal parameters stable. Continue to watch serum calcium. Continue per consultants. March 16: Labs reviewed. Serum calcium stable. Medication list reviewed. Abnormal electrolyte addressed. Continue current management. March 15: Labs reviewed. Serum calcium lowering. Abnormal electrolytes addressed. Continue per consultants. March 14: Labs reviewed. Status quo. Serum calcium lowering. Magnesium and potassium supplement ordered. Continue per current treatment plan. March 13: 1 dose of pamidronate 60 mg for high calcium IV ordered. Labs reviewed. Medication list reviewed. Electrolytes improving. Hemoglobin higher after transfusion. Nasal calcitonin initiated March 12: D5W at 75 cc an hour Monitor electrolytes Monitor hemoglobin hematocrit Gastric support Consider transfusion Continue per orders Parameters for blood pressure medication Antibiotics per ID Subjective ROS Limited/Unobtainable: Yes Objective Objective Last 24 Hour Vital Signs Date Time Temp Pulse Resp B/P (MAP) Pulse Ox O2 Delivery O2 Flow Rate FiO2 03/23/20 08:13 95 122/64 03/23/20 08:00 92 03/23/20 08:00 50 03/23/20 08:00 99.0 95 18 122/64 (83) 100 03/23/20 08:00 Mechanical Ventilator 03/23/20 04:57 99.2 03/23/20 04:00 50 03/23/20 04:00 Mechanical Ventilator 03/23/20 04:00 100.8 95 24 131/72 (91) 100 03/23/20 03:27 101 03/23/20 02:49 97 24 50 03/23/20 00:00 Mechanical Ventilator 03/23/20 00:00 50 03/23/20 00:00 97.9 98 22 130/70 (90) 100 03/22/20 23:30 103 03/22/20 22:49 85 17 50 03/22/20 20:27 99.1 03/22/20 20:00 Mechanical Ventilator 03/22/20 20:00 50 03/22/20 20:00 101.0 109 22 138/71 (93) 100 03/22/20 19:07 109 03/22/20 18:55 112 26 50 03/22/20 16:00 99.7 108 18 122/64 (83) 100 03/22/20 16:00 Mechanical Ventilator 03/22/20 16:00 50 03/22/20 15:15 107 28 50 03/22/20 15:14 104 03/22/20 12:00 50 03/22/20 12:00 Mechanical Ventilator 03/22/20 12:00 99.6 103 20 113/62 (79) 100 Intake and Output 0 03/22/20 03/23/20 19:00 07:00 Intake Total 980 ml 1907.5 ml Output Total 500 ml 750 ml Balance 480 ml 1157.5 ml Free Water 160 ml 50 ml IV Total 100 ml 1137.5 ml Tube Feeding 720 ml 720 ml Output Urine Total 500 ml 750 ml # Bowel Movements 1 Laboratory Tests 03/22/20 11:45: Urine Color Yellow, Urine Appearance Cloudy, Urine pH 5, Urine Specific [place] 1.010, Urine Protein 2+H, Urine Glucose (UA) Negative, Urine Ketones Negative, Urine Blood 2+H, Urine Nitrite Negative, Urine Bilirubin Negative, Urine Urobilinogen Normal, Urine Leukocyte Esterase 3+H, Urine RBC 2-4H, Urine WBC 60- 80H, Urine Squamous Epithelial Cells Few, Urine Bacteria Few, Urine Yeast FewH 03/22/20 12:10: POC Whole Blood Glucose 172H 03/22/20 17:42: POC Whole Blood Glucose 200H 03/22/20 22:55: POC Whole Blood Glucose [Pending] 03/23/20 03:15: White Blood Count 16.2H, Red Blood Count 3.51L, Hemoglobin 9.6L, Hematocrit 32.3L, Mean Corpuscular Volume 92, Mean Corpuscular Hemoglobin 27.4, Mean Corpuscular Hemoglobin Concent 29.8L, Red Cell Distribution Width 17.6H, Platelet Count 646H, Mean Platelet Volume 7.6, Neutrophils (%) (Auto) 77.4H, Lymphocytes (%) (Auto) 10.6L, Monocytes (%) (Auto) 5.0, Eosinophils (%) (Auto) 6.0H, Basophils (%) (Auto) 1.0, Sodium Level 145, Potassium Level 4.3, Chloride Level 110H, Carbon Dioxide Level 33H, Blood Urea Nitrogen 15, Creatinine 0.9, Estimat Glomerular Filtration Rate > 60, Glucose Level 203H, Calcium Level 8.7, Phosphorus Level 2.7, Magnesium Level 2.1, Total Bilirubin 0.2, Aspartate Amino Transf (AST/SGOT) 12L, Alanine Aminotransferase (ALT/SGPT) 16, Alkaline Phosphatase 89, C-Reactive Protein, Quantitative 15.8H, Total Protein 7.3, Albumin 1.4L, Globulin 5.9, Albumin/Globulin Ratio 0.2L 03/23/20 04:46: POC Whole Blood Glucose 188H Height (Feet): 5 Height (Inches): 5.00 Weight (Pounds): 147 General Appearance: no apparent distress - Trach to vent Cardiovascular: tachycardia Respiratory/Chest: decreased breath sounds Abdomen: distended Mathew Huntley MD Mar 23, 2020 11:30
[2020-03-23 12:00] VITALS: BP 106/66
--- NOTE | 2020-03-23 13:15 | General Progress Note ---
Subjective Allergies: Coded Allergies: No Known Allergies (Unverified , 03/11/20) Subjective above noted awake tolerating TF no events overnight Objective Last 24 Hour Vital Signs Date Time Temp Pulse Resp B/P (MAP) Pulse Ox O2 Delivery O2 Flow Rate FiO2 03/23/20 12:00 50 03/23/20 12:00 94 03/23/20 12:00 98.6 97 18 106/66 (79) 100 03/23/20 12:00 Mechanical Ventilator 03/23/20 11:03 98.6 03/23/20 10:42 92 23 50 03/23/20 10:33 101.1 03/23/20 08:13 95 122/64 03/23/20 08:00 92 03/23/20 08:00 50 03/23/20 08:00 99.0 95 18 122/64 (83) 100 03/23/20 08:00 Mechanical Ventilator 03/23/20 06:55 92 20 50 03/23/20 04:57 99.2 03/23/20 04:00 50 03/23/20 04:00 Mechanical Ventilator 03/23/20 04:00 100.8 95 24 131/72 (91) 100 03/23/20 03:27 101 03/23/20 02:49 97 24 50 03/23/20 00:00 Mechanical Ventilator 03/23/20 00:00 50 03/23/20 00:00 97.9 98 22 130/70 (90) 100 03/22/20 23:30 103 03/22/20 22:49 85 17 50 03/22/20 20:27 99.1 03/22/20 20:00 Mechanical Ventilator 03/22/20 20:00 50 03/22/20 20:00 101.0 109 22 138/71 (93) 100 03/22/20 19:07 109 03/22/20 18:55 112 26 50 03/22/20 16:00 99.7 108 18 122/64 (83) 100 03/22/20 16:00 Mechanical Ventilator 03/22/20 16:00 50 03/22/20 15:15 107 28 50 03/22/20 15:14 104 Intake and Output 03/22/20 03/23/20 19:00 07:00 Intake Total 980 ml 1907.5 ml Output Total 500 ml 750 ml Balance 480 ml 1157.5 ml Free Water 160 ml 50 ml IV Total 100 ml 1137.5 ml Tube Feeding 720 ml 720 ml Output Urine Total 500 ml 750 ml # Bowel Movements 1 Laboratory Tests 03/22/20 17:42: POC Whole Blood Glucose 200H 03/22/20 22:55: POC Whole Blood Glucose [Pending] 03/23/20 03:15: White Blood Count 16.2H, Red Blood Count 3.51L, Hemoglobin 9.6L, Hematocrit 32.3L, Mean Corpuscular Volume 92, Mean Corpuscular Hemoglobin 27.4, Mean Corpuscular Hemoglobin Concent 29.8L, Red Cell Distribution Width 17.6H, Jp telet Count 646H, Mean Platelet Volume 7.6, Neutrophils (%) (Auto) 77.4H, Lymphocytes (%) (Auto) 10.6L, Monocytes (%) (Auto) 5.0, Eosinophils (%) (Auto) 6.0H, Basophils (%) (Auto) 1.0, Sodium Level 145, Potassium Level 4.3, Chloride Level 110H, Carbon Dioxide Level 33H, Blood Urea Nitrogen 15, Creatinine 0.9, Estimat Glomerular Filtration Rate > 60, Glucose Level 203H, Calcium Level 8.7, Phosphorus Level 2.7, Magnesium Level 2.1, Total Bilirubin 0.2, Aspartate Amino Transf (AST/SGOT) 12L, Alanine Aminotransferase (ALT/SGPT) 16, Alkaline Phosphatase 89, C-Reactive Protein, Quantitative 15.8H, Total Protein 7.3, Albumin 1.4L, Globulin 5.9, Albumin/Globulin Ratio 0.2L 03/23/20 04:46: POC Whole Blood Glucose 188H 03/23/20 11:45: POC Whole Blood Glucose 208H Height (Feet): 5 Height (Inches): 5.00 Weight (Pounds): 147 Objective elderly woman NCAT supple CTA RR abd soft, (+)GT no edema Assessment/Plan Assessment/Plan: Assessment History of intracranial hemorrhage, s/p gastrostomy, OB (+) stools status post tracheostomy, chronic obstructive pulmonary disease, type 2 diabetes, Parkinson's, gout, glaucoma, history of stage IV sacral decubitus ulceration, gout. Recommendations - continue TF - GT care - elevate HOB - Monitor H&H - no GI w/u per family decision Deanne Rivera MD Mar 23, 2020 13:15
--- NOTE | 2020-03-23 14:45 | Internal Med Progress Note ---
Subjective Date of Service: Mar 23, 2020 Physician Name Barajas,Piyush Attending Physician Jesus Lutz MD Current Medications Medications (Trade) Dose Ordered Sig/Zaki Route PRN Reason Start Time Stop Time Status Last Admin Dose Admin Acetaminophen (Tylenol) 650 mg Q6H PRN GT Temp >100.5, Mild Pain 03/11/20 06:30 04/10/20 06:29 03/23/20 10:33 Amlodipine Besylate (Norvasc) 5 mg DAILY GT 03/21/20 09:00 04/20/20 08:59 03/23/20 08:13 Aspirin (ASA) 81 mg DAILY GT 03/11/20 09:00 04/25/20 08:59 03/18/20 08:35 Calcitonin Maybeury (Miacalcin) 1 sprays DAILY NASAL 03/13/20 11:00 06/11/20 10:59 03/23/20 08:14 Dextrose (Dextrose 50%) 25 ml Q30M PRN IV Hypoglycemia 03/13/20 23:30 06/11/20 23:29 Dextrose (Dextrose 50%) 50 ml Q30M PRN IV Hypoglycemia 03/13/20 23:30 06/11/20 23:29 Diphenhydramine HCl (Benadryl) 25 mg Q8H PRN ORAL Itching 03/14/20 15:00 04/13/20 14:59 03/14/20 15:50 Famotidine (Pepcid) 20 mg BID GT 03/18/20 18:00 06/09/20 08:59 03/23/20 08:14 Insulin Aspart (NovoLOG) Q6HR SUBQ 03/14/20 00:00 06/12/20 00:00 03/23/20 11:52 Levofloxacin 150 ml @ 150 mls/hr Q48H IVPB 03/22/20 09:00 03/29/20 08:59 03/22/20 08:52 Linezolid 300 ml @ 300 mls/hr Q12HR IVPB 03/22/20 13:00 03/29/20 12:59 03/23/20 08:13 Ondansetron HCl (Zofran) 4 mg Q4H PRN IVP Nausea & Vomiting 03/11/20 06:30 04/10/20 06:29 Piperacillin Sod/ Tazobactam Sod 3.375 gm/Sodium Chloride 110 ml @ 27.5 mls/hr EVERY 8 HOURS IVPB 03/17/20 22:00 03/24/20 21:59 03/23/20 13:03 Allergies: Coded Allergies: No Known Allergies (Unverified , 03/11/20) ROS Limited/Unobtainable: Yes Subjective 74 YO F trach dependent admitted with hypoxic respiratory failure. Now pneumonia and sepsis. Cover for Int Med-Dr Lutz. Step down unit. fever of 101.1 F Objective Last Vital Signs Date Time Temp Pulse Resp B/P (MAP) Pulse Ox O2 Delivery O2 Flow Rate FiO2 03/23/20 12:00 50 03/23/20 12:00 94 03/23/20 12:00 98.6 18 106/66 (79) 100 03/23/20 12:00 Mechanical Ventilator Laboratory Tests Test 03/22/20 17:42 03/22/20 22:55 03/23/20 03:15 03/23/20 04:46 POC Whole Blood Glucose 200 MG/DL (74-106) H Pending 188 MG/DL (74-106) H White Blood Count 16.2 K/UL (4.8-10.8) H Red Blood Count 3.51 M/UL (4.20-5.40) L Hemoglobin 9.6 G/DL (12.0-16.0) L Hematocrit 32.3 % (37.0-47.0) L Mean Corpuscular Volume 92 FL (80-99) Mean Corpuscular Hemoglobin 27.4 PG (27.0-31.0) Mean Corpuscular Hemoglobin Concent 29.8 G/DL (32.0-36.0) L Red Cell Distribution Width 17.6 % (11.6-14.8) H Platelet Count 646 K/UL (150-450) H Mean Platelet Volume 7.6 FL (6.5-10.1) Neutrophils (%) (Auto) 77.4 % (45.0-75.0) H Lymphocytes (%) (Auto) 10.6 % (20.0-45.0) L Monocytes (%) (Auto) 5.0 % (1.0-10.0) Eosinophils (%) (Auto) 6.0 % (0.0-3.0) H Basophils (%) (Auto) 1.0 % (0.0-2.0) Sodium Level 145 MMOL/L (136-145) Potassium Level 4.3 MMOL/L (3.5-5.1) Chloride Level 110 MMOL/L (98-107) H Carbon Dioxide Level 33 MMOL/L (21-32) H Blood Urea Nitrogen 15 mg/dL (7-18) Creatinine 0.9 MG/DL (0.55-1.30) Estimat Glomerular Filtration Rate > 60 mL/min (>60) Glucose Level 203 MG/DL (74-106) H Calcium Level 8.7 MG/DL (8.5-10.1) Phosphorus Level 2.7 MG/DL (2.5-4.9) Magnesium Level 2.1 MG/DL (1.8-2.4) Total Bilirubin 0.2 MG/DL (0.2-1.0) Aspartate Amino Transf (AST/SGOT) 12 U/L (15-37) L Alanine Aminotransferase (ALT/SGPT) 16 U/L (12-78) Alkaline Phosphatase 89 U/L (46-116) C-Reactive Protein, Quantitative 15.8 mg/dL (0.00-0.90) H Total Protein 7.3 G/DL (6.4-8.2) Albumin 1.4 G/DL (3.4-5.0) L Globulin 5.9 g/dL Albumin/Globulin Ratio 0.2 (1.0-2.7) L Test 03/23/20 11:45 POC Whole Blood Glucose 208 MG/DL (74-106) H Microbiology Date/Time Source Procedure Growth Status 03/22/20 11:45 Indwelling Cath Urine Culture - Preliminary NO GROWTH Resulted 03/21/20 05:00 Sputum Gram Stain - Final Resulted 03/21/20 05:00 Sputum Culture - Preliminary Serratia Marcescens Gram Negative Bacillus 2 Resulted Intake and Output 03/22/20 03/23/20 19:00 07:00 Intake Total 980 ml 1907.5 ml Output Total 500 ml 750 ml Balance 480 ml 1157.5 ml Free Water 160 ml 50 ml IV Total 100 ml 1137.5 ml Tube Feeding 720 ml 720 ml Output Urine Total 500 ml 750 ml # Bowel Movements 1 Objective PHYSICAL EXAMINATION: GENERAL: The patient is a thin-appearing female who is intubated and nonverbal. HEENT: Eyes, pupils are equal and responsive to light and accommodation. Extraocular movements are intact. NECK: Supple without lymphadenopathy. Tracheostomy is in place. CHEST: Mech vent; Diffuse wheezes bilaterally without rhonchi. CARDIOVASCULAR: Tachycardic, regular rhythm. S1, S2 are normal without murmurs, rubs, or gallops. ABDOMEN: Soft, nontender, and nondistended. Positive bowel sounds. No evidence of hepatosplenomegaly. Currently, no rebound or guarding noted. EXTREMITIES: Negative for clubbing, cyanosis, or edema. RECTAL/GENITAL: Not performed. NEUROLOGIC: Unable to assess. chest x-ray revealed left lower lobe consolidation consistent with pneumonia Assessment/Plan Assessment/Plan ASSESSMENT: This is a 74-year-old female. 1. Left lower lobe pneumonia. 2. Respiratory failure. 3. Hypernatremia. 4. Renal failure. 5. Hypoxemia. 6. Tracheostomy dependence. 7. Chronic obstructive pulmonary disease. 8. Diabetes type 2. 9. Parkinson disease. 10. Gout. 11. Glaucoma. 12. Sacral decubitus ulcer stage IV. 13. History of intracranial hemorrhage. 14. Hydrocephalus. 15. sepsis=MRSA 16. UTI=MDR acenitobacter TREATMENT: 1. Left lower lobe pneumonia/respiratory failure/sepsis. Pulmonary consultation =Dr. Patti Matta. ABX= continue linezolid, zosyn and levaquin. S/P vanco-see ID note Infectious disease=Dr. Villegas. We will follow recommendations of Infectious Disease and Pulmonary. 2. Hypernatremia. Hypernatremia may be secondary to renal failure versus dehydration. Nephrology consultation =. 3. Renal failure nephrology consultation =Dr. Huntley. 4. Tracheostomy dependence. 5. Chronic obstructive pulmonary disease. 6. Diabetes type 2. NovoLog sliding scale has been instituted. 7. Parkinson disease. 8. Gout. Continue allopurinol as above. 9. Glaucoma. 10. Sacral decubitus ulcer stage IV. A general surgery consultation has been obtained with Dr. Chris Hunter. 11. History of intracranial hemorrhage. 12. Await DEBBIE; cardiology=Piyush Westfall MD Mar 23, 2020 14:45
[2020-03-23 16:00] VITALS: BP 102/66
--- NOTE | 2020-03-23 19:30 | NUR ---
NURSE HAND-OFF REPORT: Important Events on Shift: Patient Status: Stable Diet: Glucerna 1.2 60 ml/hr Pending Orders: None Pending Results/Labs:None Pending MD notification:None Latest Vital Signs: Temperature 98.0 , Pulse 104 , B/P 102 /66 , Respiratory Rate 17 , O2 SAT 100 , Mechanical Ventilator, O2 Flow Rate . Vital Sign Comment: Stable EKG Rhythm: Sinus Rhythm Rhythm change?: N MD Notified?: Zacarias Alejandre MD Response: Latest Ochoa Fall Score: 50 Fall Risk: High Risk Safety Measures: Call light Within Reach, Bed Alarm Zone 1, Side Rails Side Rails x3, Bed position Low and Locked. Fall Precautions: Yellow Socks Yellow Gown Door Sign Patient Fall Education Report given to RN. Zulema.
--- NOTE | 2020-03-23 19:31 | NUR ---
NURSE NOTES: Received report from ADILENE Noonan. Pt appears obtunded, responsive to tactile stimuli. Saturating 100% on vent settings of AC 16, TV 500, fiO2 50%. G-tube running Glucerna 1.2 at 60 mL with 0 residual. Collier catheter draining well to gravity. Made aware of alterations in skin integrity. Right wrist 22 gauge is patent and intact. Bed kept in lowest and locked position, bed alarm on, side rails up x3. Will continue monitoring.
[2020-03-23 20:00] VITALS: BP 123/71
[2020-03-23] MEDS ORDERED: NS 275ml ONE (21:03)
[2020-03-24] VITALS: BP 121/70
[2020-03-24] MEDS: NovoLOG Insulin Flexpen SUBQ SCH ×5 (00:33→23:38)
[2020-03-24 04:00] VITALS: BP 130/80
--- NOTE | 2020-03-24 05:00 | NUR ---
NURSE NOTES: received pt from Alexandrea HEAD., pt is awake and AO x0. obtunded. air sampling and monitoring show pt is ST 105 at this time. no active bleeding noted. pt has Gtube intact, clean, and patent. dominique cath in intact, clean, and patent. dominique cath is draining well with gravity. skin alteration noted, dressing site intact, clean, patent. Vent in place, no SOB noted. call light within reach. will continue to monitor pt with plan of care. bed at thew lowest position, alarmed, and locked.
[2020-03-24 05:40] LABS: BLOOD UREA NITROGEN 21 mg/dL (7-18); CALCIUM 9.2 MG/DL (8.5-10.1); CARBON DIOXIDE 30 MMOL/L (21-32); CHLORIDE 109 MMOL/L (98-107); POTASSIUM 4.4 MMOL/L (3.5-5.1); SODIUM 145 MMOL/L (136-145)
[2020-03-24] MEDS: Piperacillin/Tazobactam 3.375 GM in NS 110 ML IVPB SCH ×3 (05:55→22:32)
[2020-03-24 05:57] LABS: BASOPHILS % (AUTO) 0.7 % (0.0-2.0); EOSINOPHILS % (AUTO) 5.9 % (0.0-3.0); HEMATOCRIT 28.3 % (37.0-47.0); HEMOGLOBIN 9.3 G/DL (12.0-16.0); LYMPHOCYTES % (AUTO) 11.8 % (20.0-45.0); MEAN CORPUSCULAR VOLUME 83 FL (80-99); MONOCYTES % (AUTO) 3.6 % (1.0-10.0); PLATELET COUNT 655 K/UL (150-450); RED BLOOD COUNT 3.42 M/UL (4.20-5.40); RED CELL DISTRIBUTION WIDTH 19.3 % (11.6-14.8); WHITE BLOOD COUNT 15.7 K/UL (4.8-10.8)
--- NOTE | 2020-03-24 07:00 | NUR ---
NURSE HAND-OFF REPORT: Important Events on Shift:[low grade fever in AM] Patient Status: [stable] Diet: [Glucerna 1.2 @ 60ml/hr] Pending Orders: [n/a] Pending Results/Labs:[n/a] Pending MD notification:[n/a] Latest Vital Signs: Temperature 98.1 , Pulse 100 , B/P 130 /80 , Respiratory Rate 24 , O2 SAT 100 , Mechanical Ventilator, O2 Flow Rate . Vital Sign Comment: [stable] EKG Rhythm: Sinus Rhythm Rhythm change?: N MD Notified?: Zacarias Alejandre MD Response: Latest Ochoa Fall Score: 50 Fall Risk: High Risk Safety Measures: Call light Within Reach, Bed Alarm Zone 1, Side Rails Side Rails x3, Bed position Low and Locked. Fall Precautions: Yellow Socks Yellow Gown Door Sign Patient Fall Education Report given to [Saran Guzman RN., and Jenniffer HEAD.,]
--- NOTE | 2020-03-24 07:15 | NUR ---
NURSE NOTES: Received report from ADILENE Mae. Pt is awake, obtunded, non-verbal, and non-tracking. No signs of cardiac/respiratory distress. Pt showing ST on scientific systems analyst. Pt is trached, portex 7, AC 16, Tv 400, FiO2 50%, PEEP 5, SpO2 99%. Gt is intact and non-draining, running Glucerna 1.2 at 60cc/hr. Collier is intact and draining well to gravity. Skin issues noted, dressings dry and intact. R wrist 20g asymptomatic and flushing well. HOB elevated, call light within reach, side rails upx3, bed locked and in lowest position. Fall and aspiration risk noted and reinforced. Will continue plan of care. Will continue to monitor.
[2020-03-24 08:00] VITALS: BP 119/75
[2020-03-24] MEDS: Aspirin Baby 81mg GT SCH (08:08)
[2020-03-24] MEDS: Acetaminophen 650mg/20.3ml GT PRN ×2 (08:39→20:53)
--- NOTE | 2020-03-24 08:46 | NUR ---
NURSE NOTES: Gave morning meds. Tolerated well. No signs of distress. Will continue to monitor. Will continue plan of care.
--- NOTE | 2020-03-24 09:56 | General Progress Note ---
Subjective Allergies: Coded Allergies: No Known Allergies (Unverified , 03/11/20) Subjective above noted awake tolerating TF no events overnight Objective Last 24 Hour Vital Signs Date Time Temp Pulse Resp B/P (MAP) Pulse Ox O2 Delivery O2 Flow Rate FiO2 03/24/20 09:09 100.0 03/24/20 08:08 103 130/80 03/24/20 08:00 50 03/24/20 08:00 Mechanical Ventilator 03/24/20 08:00 100.2 104 21 119/75 (90) 100 03/24/20 07:38 102 03/24/20 07:25 103 24 50 03/24/20 04:00 98.1 100 24 130/80 (97) 100 03/24/20 04:00 50 03/24/20 04:00 Mechanical Ventilator 03/24/20 03:37 99 03/24/20 03:00 99 24 50 03/24/20 00:00 98.8 106 20 121/70 (87) 100 03/24/20 00:00 106 03/24/20 00:00 50 03/24/20 00:00 Mechanical Ventilator 03/23/20 22:50 107 22 50 03/23/20 20:00 98.4 99 20 123/71 (88) 100 03/23/20 20:00 105 03/23/20 20:00 Mechanical Ventilator 03/23/20 20:00 50 03/23/20 19:07 104 17 50 03/23/20 16:24 97 03/23/20 16:00 50 03/23/20 16:00 Mechanical Ventilator 03/23/20 16:00 98.0 95 18 102/66 (78) 100 03/23/20 15:12 89 24 50 03/23/20 12:00 50 03/23/20 12:00 94 03/23/20 12:00 98.6 97 18 106/66 (79) 100 03/23/20 12:00 Mechanical Ventilator 03/23/20 11:03 98.6 03/23/20 10:42 92 23 50 03/23/20 10:33 101.1 Intake and Output 03/23/20 03/24/20 19:00 07:00 Intake Total 1060 ml 1255.191 ml Output Total 800 ml 860 ml Balance 260 ml 395.191 ml Free Water 340 ml 100 ml IV Total 435.191 ml Tube Feeding 720 ml 720 ml Output Urine Total 800 ml 860 ml # Bowel Movements 1 1 Laboratory Tests 03/23/20 11:45: POC Whole Blood Glucose 208H 03/23/20 16:52: POC Whole Blood Glucose 118H 03/24/20 00:29: POC Whole Blood Glucose 203H 03/24/20 03:57: White Blood Count 15.7H, Red Blood Count 3.42L, Hemoglobin 9.3L, Hematocrit 28.3L, Mean Corpuscular Volume 83#, Mean Corpuscular Hemoglobin 27.3, Mean Corpuscular Hemoglobin Concent 33.0, Red Cell Distribution Width 19.3H, Platelet Count 655H, Mean Platelet Volume 8.1, Neutrophils (%) (Auto) 78.0H, Lymphocytes (%) (Auto) 11.8L, Monocytes (%) (Auto) 3.6, Eosinophils (%) (Auto) 5.9H, Basophils (%) (Auto) 0.7, Sodium Level 145, Potassium Level 4.4, Chloride Level 109H, Carbon Dioxide Level 30, Blood Urea Nitrogen 21H, Creatinine 1.0, Estimat Glomerular Filtration Rate > 60, Glucose Level 163H, Calcium Level 9.2 Height (Feet): 5 Height (Inches): 5.00 Weight (Pounds): 147 Objective elderly woman NCAT supple, trach CTA RR abd soft, (+)GT no edema Assessment/Plan Assessment/Plan: Assessment History of intracranial hemorrhage, s/p gastrostomy, OB (+) stools status post tracheostomy, chronic obstructive pulmonary disease, type 2 diabetes, Parkinson's, gout, glaucoma, history of stage IV sacral decubitus ulceration, gout. Recommendations - continue TF - GT care - elevate HOB - Monitor H&H - no GI w/u per family decision Deanne Rivera MD Mar 24, 2020 09:56
--- NOTE | 2020-03-24 10:15 | Infectious Diseases Prog Note ---
Assessment/Plan 74yo F with: Febrile, persistent Leukocytosis, persistent Thrombocytosis, increasing Sepsis Left lower lung infiltrate Acute on chronic resp failure SP trach MRSA bacteremia - DEBBIE cancelled as family refused RML cavitation, not seen on CT chest 03/11 BCx +MRSA Resp cx +PsA (S-Zosyn, I-merissa and cefepime) UCx 30-40k ACB (colonizer) COVID rapid Ag neg CXR: Midline tracheostomy. Small left pleural effusion. Hyperinflation with flattening of the diaphragms and emphysema, consistent with COPD. No lobar infiltrate. 03/12 BCx NTD 03/13 C.dif neg 03/13 BCx NTD 03/14 BCx NTD 03/14 CT A/P: 1. 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 2. Small left pleural effusion. Left lower lobe atelectasis. 3. Bladder wall thickening. Foci of gas in the bladder. Correlate for recent instrumentation versus cystitis. Lung bases: Small nodular focus of cavitation in the right middle lobe. This may be secondary to infection. Recommend continued follow-up. Emphysematous changes in the lung bases. 1.2 cm nodular focus with some central cavitation in the right middle lobe. Pleural space: Small left pleural effusion. Left lower lobe atelectasis. 03/14 TTE: No vegetations, thickened valves 03/17 CXR: 1. Unchanged tracheostomy. 2. Mildly more pronounced linear interstitial prominence could represent atypical infection or interstitial pulmonary edema in the proper clinical context. 3. Unchanged hyperinflation. 4. Unchanged mild retrocardiac atelectasis without or with consolidation. 03/20 BCx p 03/20 CT chest: Centrilobular emphysema seen throughout both lungs with with an upper lobe predominance, indicating extensive COPD changes. Mosaic attenuation pattern in the upper lobes probably related to COPD, although this is a nonspecific finding. Dense consolidation and atelectasis of much of the left lower lobe. This could represent pneumonia. Groundglass opacities in the inferior left upper lobe. These could represent areas of acute inflammation, or could represent post inflammatory changes. 8mm nodule in the right middle lobe, also described on prior CT scan. This previously demonstrated a cavity. Cavitation currently not evident. Differential considerations include neoplasm, acute or chronic inflammatory lesion. Recommend at a minimum follow-up CT scan in 6 months 03/21 Resp cx p 03/21 SPC changed 03/22 UA/UCx p BUE and BLE neg for DVT 03/21 MRSA nares positive VDRF S/p trach/PEG Bed bound Sacral decub ulceration w/ underlying OM Plan: Start levofloxacin #3 to cover for prior found ACB in UCx given ongoing fevers Cont Zosyn #8 for broader coverage given ongoing fever, increasing WBC, pna (PsA in resp cx I-merissa) Cont Zyvox # 3, for MRSA bacteremia, duration TBD -03/22 Sp IV vancomycin # -03/14 SP cefepime #4 Agree with hospice evaluation if family decides Given ongoing fevers, high platelets, slow to improve leukocytosis, high s/f undiagnosed endocarditis, c/w aortic root abscess given ongoing fevers. DEBBIE wou ld be helpful for diagnosis - EKG today, MI interval 110, wnl - Consider cardiac MRI vs PET vs tagged WBC if ongoing fevers and pt not definitively going w/ hospice UA/UCx today F/u repeat BCx 03/20 given ongoing fevers F/u repeat sputum cx 03/21 Trend WBC Trend plts Trend temp curve - WBC Scan ( TOMASA RN) Monitor CBC/CMP Monitor temp curve, hemodynamics Monitor resp status D/w RN and Dr. Matta Thank you for this consult. [facility] will continue to follow. Subjective Allergies: Coded Allergies: No Known Allergies (Unverified , 03/11/20) low garde fever Objective Last 24 Hour Vital Signs Date Time Temp Pulse Resp B/P (MAP) Pulse Ox O2 Delivery O2 Flow Rate FiO2 03/24/20 09:09 100.0 03/24/20 08:08 103 130/80 03/24/20 08:00 50 03/24/20 08:00 Mechanical Ventilator 03/24/20 08:00 100.2 104 21 119/75 (90) 100 03/24/20 07:38 102 03/24/20 07:25 103 24 50 03/24/20 04:00 98.1 100 24 130/80 (97) 100 03/24/20 04:00 50 03/24/20 04:00 Mechanical Ventilator 03/24/20 03:37 99 03/24/20 03:00 99 24 50 03/24/20 00:00 98.8 106 20 121/70 (87) 100 03/24/20 00:00 106 03/24/20 00:00 50 03/24/20 00:00 Mechanical Ventilator 03/23/20 22:50 107 22 50 03/23/20 20:00 98.4 99 20 123/71 (88) 100 03/23/20 20:00 105 03/23/20 20:00 Mechanical Ventilator 03/23/20 20:00 50 03/23/20 19:07 104 17 50 03/23/20 16:24 97 03/23/20 16:00 50 03/23/20 16:00 Mechanical Ventilator 03/23/20 16:00 98.0 95 18 102/66 (78) 100 03/23/20 15:12 89 24 50 03/23/20 12:00 50 03/23/20 12:00 94 03/23/20 12:00 98.6 97 18 106/66 (79) 100 03/23/20 12:00 Mechanical Ventilator 03/23/20 11:03 98.6 03/23/20 10:42 92 23 50 03/23/20 10:33 101.1 Height (Feet): 5 Height (Inches): 5.00 Weight (Pounds): 147 HEENT: anicteric Respiratory/Chest: no accessory muscle use Cardiovascular: normal rate Abdomen: no organomegaly Microbiology Date/Time Source Procedure Growth Status 03/22/20 11:45 Indwelling Cath Urine Culture - Preliminary NO GROWTH AFTER 24 HOURS Resulted Laboratory Tests Test 03/23/20 11:45 03/23/20 16:52 03/24/20 00:29 03/24/20 03:57 POC Whole Blood Glucose 208 MG/DL (74-106) H 118 MG/DL (74-106) H 203 MG/DL (74-106) H White Blood Count 15.7 K/UL (4.8-10.8) H Red Blood Count 3.42 M/UL (4.20-5.40) L Hemoglobin 9.3 G/DL (12.0-16.0) L Hematocrit 28.3 % (37.0-47.0) L Mean Corpuscular Volume 83 FL (80-99) # Mean Corpuscular Hemoglobin 27.3 PG (27.0-31.0) Mean Corpuscular Hemoglobin Concent 33.0 G/DL (32.0-36.0) Red Cell Distribution Width 19.3 % (11.6-14.8) H Platelet Count 655 K/UL (150-450) H Mean Platelet Volume 8.1 FL (6.5-10.1) Neutrophils (%) (Auto) 78.0 % (45.0-75.0) H Lymphocytes (%) (Auto) 11.8 % (20.0-45.0) L Monocytes (%) (Auto) 3.6 % (1.0-10.0) Eosinophils (%) (Auto) 5.9 % (0.0-3.0) H Basophils (%) (Auto) 0.7 % (0.0-2.0) Sodium Level 145 MMOL/L (136-145) Potassium Level 4.4 MMOL/L (3.5-5.1) Chloride Level 109 MMOL/L (98-107) H Carbon Dioxide Level 30 MMOL/L (21-32) Blood Urea Nitrogen 21 mg/dL (7-18) H Creatinine 1.0 MG/DL (0.55-1.30) Estimat Glomerular Filtration Rate > 60 mL/min (>60) Glucose Level 163 MG/DL (74-106) H Calcium Level 9.2 MG/DL (8.5-10.1) Current Medications Medications (Trade) Dose Ordered Sig/Zaki Route PRN Reason Start Time Stop Time Status Last Admin Dose Admin Acetaminophen (Tylenol) 650 mg Q6H PRN GT Temp >100.5, Mild Pain 03/11/20 06:30 04/10/20 06:29 03/24/20 08:39 Amlodipine Besylate (Norvasc) 5 mg DAILY GT 03/21/20 09:00 04/20/20 08:59 03/24/20 08:08 Aspirin (ASA) 81 mg DAILY GT 03/11/20 09:00 04/25/20 08:59 03/18/20 08:35 Calcitonin [place] (Miacalcin) 1 sprays DAILY NASAL 03/13/20 11:00 06/11/20 10:59 03/24/20 08:09 Dextrose (Dextrose 50%) 25 ml Q30M PRN IV Hypoglycemia 03/13/20 23:30 06/11/20 23:29 Dextrose (Dextrose 50%) 50 ml Q30M PRN IV Hypoglycemia 03/13/20 23:30 06/11/20 23:29 Diphenhydramine HCl (Benadryl) 25 mg Q8H PRN ORAL Itching 03/14/20 15:00 04/13/20 14:59 03/14/20 15:50 Famotidine (Pepcid) 20 mg BID GT 03/18/20 18:00 06/09/20 08:59 03/24/20 08:07 Insulin Aspart (NovoLOG) Q6HR SUBQ 03/14/20 00:00 06/12/20 00:00 03/24/20 06:05 Levofloxacin 150 ml @ 150 mls/hr Q48H IVPB 03/22/20 09:00 03/29/20 08:59 03/24/20 09:18 Linezolid 300 ml @ 300 mls/hr Q12HR IVPB 03/22/20 13:00 03/29/20 12:59 03/24/20 08:07 Ondansetron HCl (Zofran) 4 mg Q4H PRN IVP Nausea & Vomiting 03/11/20 06:30 04/10/20 06:29 Piperacillin Sod/ Tazobactam Sod 3.375 gm/Sodium Chloride 110 ml @ 27.5 mls/hr EVERY 8 HOURS IVPB 03/17/20 22:00 03/24/20 21:59 03/24/20 05:55 Javy Cruz MD Mar 24, 2020 10:15
--- NOTE | 2020-03-24 10:24 | Nephrology Progress Note ---
Assessment/Plan Problem List: (1) Hypercalcemia (2) Hypernatremia (3) Sepsis (4) UTI (urinary tract infection) (5) Stage 4 decubitus ulcer (6) Acute on chronic respiratory failure (7) Chronic vegetative state (8) Severe protein-calorie malnutrition Assessment Azotemia and hypernatremia indicative of severe dehydration and free water deficit Acute on chronic respiratory failure, on mechanical ventilation Severe underlying anemia Sepsis Stage IV decubitus Idiopathic obstructive hydrocephalus, history of intracranial hemorrhage Diabetes mellitus Parkinson's disease, dementia Protein calorie malnutrition Plan March 24: Labs reviewed. Renal parameters stable. Continue per consultants. March 23: Labs reviewed. Renal parameters are stable. Continue per consultants. March 22: Labs reviewed. Serum sodium 151. D5W IV given. Continue per consultants. March 21: Labs reviewed. Renal parameters stable. Continue per consultants. March 20: Labs reviewed. Serum sodium lower 147. Serum calcium stable. Continue as is. March 19: Labs reviewed. Serum sodium unchanged at 150. Another liter of D5W ordered. Serum calcium stable. Continue as is. March 18: Labs reviewed. Serum sodium 150. 1 L of D5W IV ordered. Serum calcium stable. Continue as is. March 17: Labs reviewed. Renal parameters stable. Continue to watch serum calcium. Continue per consultants. March 16: Labs reviewed. Serum calcium stable. Medication list reviewed. Abnormal electrolyte addressed. Continue current management. March 15: Labs reviewed. Serum calcium lowering. Abnormal electrolytes addressed. Continue per consultants. March 14: Labs reviewed. Status quo. Serum calcium lowering. Magnesium and potassium supplement ordered. Continue per current treatment plan. March 13: 1 dose of pamidronate 60 mg for high calcium IV ordered. Labs reviewed. Medication list reviewed. Electrolytes improving. Hemoglobin higher after transfusion. Nasal calcitonin initiated March 12: D5W at 75 cc an hour Monitor electrolytes Monitor hemoglobin hematocrit Gastric support Consider transfusion Continue per orders Parameters for blood pressure medication Antibiotics per ID Subjective ROS Limited/Unobtainable: Yes Objective Objective Last 24 Hour Vital Signs Date Time Temp Pulse Resp B/P (MAP) Pulse Ox O2 Delivery O2 Flow Rate FiO2 03/24/20 09:09 100.0 03/24/20 08:08 103 130/80 03/24/20 08:00 50 03/24/20 08:00 Mechanical Ventilator 03/24/20 08:00 100.2 104 21 119/75 (90) 100 03/24/20 07:38 102 03/24/20 07:25 103 24 50 03/24/20 04:00 98.1 100 24 130/80 (97) 100 03/24/20 04:00 50 03/24/20 04:00 Mechanical Ventilator 03/24/20 03:37 99 03/24/20 03:00 99 24 50 03/24/20 00:00 98.8 106 20 121/70 (87) 100 03/24/20 00:00 106 03/24/20 00:00 50 03/24/20 00:00 Mechanical Ventilator 03/23/20 22:50 107 22 50 03/23/20 20:00 98.4 99 20 123/71 (88) 100 03/23/20 20:00 105 03/23/20 20:00 Mechanical Ventilator 03/23/20 20:00 50 03/23/20 19:07 104 17 50 03/23/20 16:24 97 03/23/20 16:00 50 03/23/20 16:00 Mechanical Ventilator 03/23/20 16:00 98.0 95 18 102/66 (78) 100 03/23/20 15:12 89 24 50 03/23/20 12:00 50 03/23/20 12:00 94 03/23/20 12:00 98.6 97 18 106/66 (79) 100 03/23/20 12:00 Mechanical Ventilator 03/23/20 11:03 98.6 03/23/20 10:42 92 23 50 03/23/20 10:33 101.1 Intake and Output 03/23/20 03/24/20 19:00 07:00 Intake Total 1060 ml 1255.191 ml Output Total 800 ml 860 ml Balance 260 ml 395.191 ml Free Water 340 ml 100 ml IV Total 435.191 ml Tube Feeding 720 ml 720 ml Output Urine Total 800 ml 860 ml # Bowel Movements 1 1 Current Medications Medications (Trade) Dose Ordered Sig/Zaki Route PRN Reason Start Time Stop Time Status Last Admin Dose Admin Acetaminophen (Tylenol) 650 mg Q6H PRN GT Temp >100.5, Mild Pain 03/11/20 06:30 04/10/20 06:29 03/24/20 08:39 Amlodipine Besylate (Norvasc) 5 mg DAILY GT 03/21/20 09:00 12/24/20 08:59 03/24/20 08:08 Aspirin (ASA) 81 mg DAILY GT 03/11/20 09:00 04/25/20 08:59 03/18/20 08:35 Calcitonin [place] (Miacalcin) 1 sprays DAILY NASAL 03/13/20 11:00 06/11/20 10:59 03/24/20 08:09 Dextrose (Dextrose 50%) 25 ml Q30M PRN IV Hypoglycemia 03/13/20 23:30 06/11/20 23:29 Dextrose (Dextrose 50%) 50 ml Q30M PRN IV Hypoglycemia 03/13/20 23:30 06/11/20 23:29 Diphenhydramine HCl (Benadryl) 25 mg Q8H PRN ORAL Itching 03/14/20 15:00 04/13/20 14:59 03/14/20 15:50 Famotidine (Pepcid) 20 mg BID GT 03/18/20 18:00 06/09/20 08:59 03/24/20 08:07 Insulin Aspart (NovoLOG) Q6HR SUBQ 03/14/20 00:00 06/12/20 00:00 03/24/20 06:05 Levofloxacin 150 ml @ 150 mls/hr Q48H IVPB 03/22/20 09:00 03/29/20 08:59 03/24/20 09:18 Linezolid 300 ml @ 300 mls/hr Q12HR IVPB 03/22/20 13:00 03/29/20 12:59 03/24/20 08:07 Ondansetron HCl (Zofran) 4 mg Q4H PRN IVP Nausea & Vomiting 03/11/20 06:30 04/10/20 06:29 Piperacillin Sod/ Tazobactam Sod 3.375 gm/Sodium Chloride 110 ml @ 27.5 mls/hr EVERY 8 HOURS IVPB 03/17/20 22:00 03/24/20 21:59 03/24/20 05:55 Laboratory Tests 03/23/20 11:45: POC Whole Blood Glucose 208H 03/23/20 16:52: POC Whole Blood Glucose 118H 03/24/20 00:29: POC Whole Blood Glucose 203H 03/24/20 03:57: White Blood Count 15.7H, Red Blood Count 3.42L, Hemoglobin 9.3L, Hematocrit 28.3L, Mean Corpuscular Volume 83#, Mean Corpuscular Hemoglobin 27.3, Mean Corpuscular Hemoglobin Concent 33.0, Red Cell Distribution Width 19.3H, Platelet Count 655H, Mean Platelet Volume 8.1, Neutrophils (%) (Auto) 78.0H, Lymphocytes (%) (Auto) 11.8L, Monocytes (%) (Auto) 3.6, Eosinophils (%) (Auto) 5.9H, Basophils (%) (Auto) 0.7, Sodium Level 145, Potassium Level 4.4, Chloride Level 109H, Carbon Dioxide Level 30, Blood Urea Nitrogen 21H, Creatinine 1.0, Estimat Glomerular Filtration Rate > 60, Glucose Level 163H, Calcium Level 9.2 Height (Feet): 5 Height (Inches): 5.00 Weight (Pounds): 147 General Appearance: no apparent distress EENT: other - Trach to vent Respiratory/Chest: decreased breath sounds Abdomen: distended Mathew Huntley MD Mar 24, 2020 10:24
--- NOTE | 2020-03-24 10:30 | NUR ---
NURSE NOTES: Pt had large, brown diarrhea. Cleaned pt, gave bed bath, and changed sheets. Pt's temperature at 99.9F. Cooling measures on. Will continue to monitor. Will continue plan of care.
--- NOTE | 2020-03-24 11:02 | NUR ---
CASE MANAGEMENT:REVIEW 03/24/20 SI: MRSA SEPSIS TRACH/VENT/GT DEPENDENT 100.2 104 21 119/75 100% ON VENT SUPPORT 50% FIO2 WBC+15.7 IS: IV LINEZOLID Q12 IV LEVAQUIN Q48 IV ZOSYN Q8HRS : STEP DOWN UNIT DCP: FROM [facility]
--- NOTE | 2020-03-24 11:08 | Pulmonolgy Critical Care Note ---
Critical Care - Asmt/Plan Problems: (1) Persistent fever (2) Acute on chronic respiratory failure (3) Staphylococcus aureus bacteremia (4) Sepsis (5) Chronic respiratory failure requiring continuous mechanical ventilation through tracheostomy (6) Stage 4 decubitus ulcer (7) Diabetes mellitus (8) Parkinson's disease dementia (9) Gout (10) Idiopathic obstructive hydrocephalus (11) Severe protein-calorie malnutrition (12) History of intracranial hemorrhage (13) Chronic vegetative state Respiratory: monitor respiratory rate, adjust FIO2, CXR Cardiac: continue to monitor HR/BP Renal: F/U I&O, keep IV fluid, check electrolytes Infectious Disease: check cultures, continue antibiotics Gastrointestinal: continue feedings/current rate Hematologic: transfuse if hgb<8.5 Neurologic: PRN Ativan, PRN Morphine, keep patient comfortable Prophylaxis: Protonix Time Spent (Minutes): 40 Notes Reviewed: ip counsel, cardio Discussed with: nurses, consultants, trimming casermanager erp - Objective Last 24 Hour Vital Signs Date Time Temp Pulse Resp B/P (MAP) Pulse Ox O2 Delivery O2 Flow Rate FiO2 03/24/20 09:09 100.0 03/24/20 08:08 103 130/80 03/24/20 08:00 50 03/24/20 08:00 Mechanical Ventilator 03/24/20 08:00 100.2 104 21 119/75 (90) 100 03/24/20 07:38 102 03/24/20 07:25 103 24 50 03/24/20 04:00 98.1 100 24 130/80 (97) 100 03/24/20 04:00 50 03/24/20 04:00 Mechanical Ventilator 03/24/20 03:37 99 03/24/20 03:00 99 24 50 03/24/20 00:00 98.8 106 20 121/70 (87) 100 03/24/20 00:00 106 03/24/20 00:00 50 03/24/20 00:00 Mechanical Ventilator 03/23/20 22:50 107 22 50 03/23/20 20:00 98.4 99 20 123/71 (88) 100 03/23/20 20:00 105 03/23/20 20:00 Mechanical Ventilator 03/23/20 20:00 50 03/23/20 19:07 104 17 50 03/23/20 16:24 97 03/23/20 16:00 50 03/23/20 16:00 Mechanical Ventilator 03/23/20 16:00 98.0 95 18 102/66 (78) 100 03/23/20 15:12 89 24 50 03/23/20 12:00 50 03/23/20 12:00 94 03/23/20 12:00 98.6 97 18 106/66 (79) 100 03/23/20 12:00 Mechanical Ventilator Status: awake Condition: critical HEENT: atraumatic, normocephalic Neck: full ROM Lungs: chest wall tender Heart: HR/BP stable Abdomen: soft Extremities: edema Micro: Microbiology Date/Time Source Procedure Growth Status 03/22/20 11:45 Indwelling Cath Urine Culture - Preliminary NO GROWTH AFTER 24 HOURS Resulted Accucheck: 144 Critical Care - Subjective ROS Limited/Unobtainable: Yes Condition: critical EKG Rhythm: Sinus Rhythm FI02: 50 Vent Support Breath Rate: 16 Vent Support Mode: AC Vent Tidal Volume: 400 Sputum Amount: Moderate PEEP: 5.0 PIP: 22 Tube Feeding Amount: 60 I&O: Intake and Output 03/23/20 03/24/20 19:00 07:00 Intake Total 1060 ml 1255.191 ml Output Total 800 ml 860 ml Balance 260 ml 395.191 ml Free Water 340 ml 100 ml IV Total 435.191 ml Tube Feeding 720 ml 720 ml Output Urine Total 800 ml 860 ml # Bowel Movements 1 1 CXR: no change Labs: Laboratory Tests Test 03/23/20 11:45 03/23/20 16:52 03/24/20 00:29 03/24/20 03:57 POC Whole Blood Glucose 208 MG/DL (74-106) H 118 MG/DL (74-106) H 203 MG/DL (74-106) H White Blood Count 15.7 K/UL (4.8-10.8) H Red Blood Count 3.42 M/UL (4.20-5.40) L Hemoglobin 9.3 G/DL (12.0-16.0) L Hematocrit 28.3 % (37.0-47.0) L Mean Corpuscular Volume 83 FL (80-99) # Mean Corpuscular Hemoglobin 27.3 PG (27.0-31.0) Mean Corpuscular Hemoglobin Concent 33.0 G/DL (32.0-36.0) Red Cell Distribution Width 19.3 % (11.6-14.8) H Platelet Count 655 K/UL (150-450) H Mean Platelet Volume 8.1 FL (6.5-10.1) Neutrophils (%) (Auto) 78.0 % (45.0-75.0) H Lymphocytes (%) (Auto) 11.8 % (20.0-45.0) L Monocytes (%) (Auto) 3.6 % (1.0-10.0) Eosinophils (%) (Auto) 5.9 % (0.0-3.0) H Basophils (%) (Auto) 0.7 % (0.0-2.0) Sodium Level 145 MMOL/L (136-145) Potassium Level 4.4 MMOL/L (3.5-5.1) Chloride Level 109 MMOL/L (98-107) H Carbon Dioxide Level 30 MMOL/L (21-32) Blood Urea Nitrogen 21 mg/dL (7-18) H Creatinine 1.0 MG/DL (0.55-1.30) Estimat Glomerular Filtration Rate > 60 mL/min (>60) Glucose Level 163 MG/DL (74-106) H Calcium Level 9.2 MG/DL (8.5-10.1) Patti Matta MD Mar 24, 2020 11:07
--- NOTE | 2020-03-24 11:45 | Cardiac Electrophysiology PN ---
Assessment/Plan Assessment/Plan 1. MRSA bacteremia. Most recent blood culture from March 13, 2020 showed no growth. Echocardiogram showed ejection fraction of 60-65% with no clear vegetation. DEBBIE cancelled as family refused. On iv Abx 2. VDRF , status post tracheostomy.On 40% Fio2 3. Dysphagia, status post PEG placement. 4. History of intracranial hemorrhage. 5. COPD. 6. Diabetes. 7. Glaucoma. 8. Sacral decubitus stage IV. 9. Hypertension, on amlodipine 10 mg daily. 10. Transient SVT. Change Amlodipine to Cardizem 30 tid TOMASA RN Subjective Subjective Off pressors on the Vent in sinus tach Fio2 40% and PEEP 5. Family refused DEBBIE. Had episodes of SVT lasting less than 20 seconds yesterday. Has fever and sinus tach now Objective Last 24 Hour Vital Signs Date Time Temp Pulse Resp B/P (MAP) Pulse Ox O2 Delivery O2 Flow Rate FiO2 03/24/20 09:09 100.0 03/24/20 08:08 103 130/80 03/24/20 08:00 50 03/24/20 08:00 Mechanical Ventilator 03/24/20 08:00 100.2 104 21 119/75 (90) 100 03/24/20 07:38 102 03/24/20 07:25 103 24 50 03/24/20 04:00 98.1 100 24 130/80 (97) 100 03/24/20 04:00 50 03/24/20 04:00 Mechanical Ventilator 03/24/20 03:37 99 03/24/20 03:00 99 24 50 03/24/20 00:00 98.8 106 20 121/70 (87) 100 03/24/20 00:00 106 03/24/20 00:00 50 03/24/20 00:00 Mechanical Ventilator 03/23/20 22:50 107 22 50 03/23/20 20:00 98.4 99 20 123/71 (88) 100 03/23/20 20:00 105 03/23/20 20:00 Mechanical Ventilator 03/23/20 20:00 50 03/23/20 19:07 104 17 50 03/23/20 16:24 97 03/23/20 16:00 50 03/23/20 16:00 Mechanical Ventilator 03/23/20 16:00 98.0 95 18 102/66 (78) 100 03/23/20 15:12 89 24 50 03/23/20 12:00 50 03/23/20 12:00 94 03/23/20 12:00 98.6 97 18 106/66 (79) 100 03/23/20 12:00 Mechanical Ventilator Intake and Output 03/23/20 03/24/20 19:00 07:00 Intake Total 1060 ml 1255.191 ml Output Total 800 ml 860 ml Balance 260 ml 395.191 ml Free Water 340 ml 100 ml IV Total 435.191 ml Tube Feeding 720 ml 720 ml Output Urine Total 800 ml 860 ml # Bowel Movements 1 1 Laboratory Tests Test 03/23/20 11:45 03/23/20 16:52 03/24/20 00:29 03/24/20 03:57 POC Whole Blood Glucose 208 MG/DL (74-106) H 118 MG/DL (74-106) H 203 MG/DL (74-106) H White Blood Count 15.7 K/UL (4.8-10.8) H Red Blood Count 3.42 M/UL (4.20-5.40) L Hemoglobin 9.3 G/DL (12.0-16.0) L Hematocrit 28.3 % (37.0-47.0) L Mean Corpuscular Volume 83 FL (80-99) # Mean Corpuscular Hemoglobin 27.3 PG (27.0-31.0) Mean Corpuscular Hemoglobin Concent 33.0 G/DL (32.0-36.0) Red Cell Distribution Width 19.3 % (11.6-14.8) H Platelet Count 655 K/UL (150-450) H Mean Platelet Volume 8.1 FL (6.5-10.1) Neutrophils (%) (Auto) 78.0 % (45.0-75.0) H Lymphocytes (%) (Auto) 11.8 % (20.0-45.0) L Monocytes (%) (Auto) 3.6 % (1.0-10.0) Eosinophils (%) (Auto) 5.9 % (0.0-3.0) H Basophils (%) (Auto) 0.7 % (0.0-2.0) Sodium Level 145 MMOL/L (136-145) Potassium Level 4.4 MMOL/L (3.5-5.1) Chloride Level 109 MMOL/L (98-107) H Carbon Dioxide Level 30 MMOL/L (21-32) Blood Urea Nitrogen 21 mg/dL (7-18) H Creatinine 1.0 MG/DL (0.55-1.30) Estimat Glomerular Filtration Rate > 60 mL/min (>60) Glucose Level 163 MG/DL (74-106) H Calcium Level 9.2 MG/DL (8.5-10.1) Test 03/24/20 11:23 POC Whole Blood Glucose 206 MG/DL (74-106) H Microbiology Date/Time Source Procedure Growth Status 03/22/20 11:45 Indwelling Cath Urine Culture - Preliminary NO GROWTH AFTER 24 HOURS Resulted Objective HEAD AND NECK: No JVD. LUNGS: Coarse rhonchi. Status post tracheostomy. CARDIOVASCULAR: Regular S1 and S2 with no gallop or rub. Status post PEG. EXTREMITIES: 1+ pitting edema with sacral decubitus. Shay Alejandre MD Mar 24, 2020 11:45
[2020-03-24 12:00] VITALS: BP 148/72
--- NOTE | 2020-03-24 12:36 | NUR ---
NURSE NOTES: This nurse spoke with Dr. Cruz via telephone, informed MD that per nuclear med department [place] indium scan spect will not be done until done Friday. Dr. Cruz acknowledged and gave no new orders at this time. Will continue to monitor patient.
[2020-03-24] MEDS: dilTIAZem HCl 30mg tab GT SCH ×2 (13:49→22:37)
--- NOTE | 2020-03-24 13:55 | Surgery Progress Note ---
Surgery Progress Note Subjective Additional Comments leukocytosis anemia no n/v comfortable on support Objective Last 24 Hour Vital Signs Date Time Temp Pulse Resp B/P (MAP) Pulse Ox O2 Delivery O2 Flow Rate FiO2 03/24/20 13:49 100 122/75 03/24/20 12:00 97.9 110 20 148/72 (97) 100 03/24/20 12:00 50 03/24/20 12:00 Mechanical Ventilator 03/24/20 11:22 109 03/24/20 11:00 97 24 50 03/24/20 09:09 100.0 03/24/20 08:08 103 130/80 03/24/20 08:00 50 03/24/20 08:00 Mechanical Ventilator 03/24/20 08:00 100.2 104 21 119/75 (90) 100 03/24/20 07:38 102 03/24/20 07:25 103 24 50 03/24/20 04:00 98.1 100 24 130/80 (97) 100 03/24/20 04:00 50 03/24/20 04:00 Mechanical Ventilator 03/24/20 03:37 99 03/24/20 03:00 99 24 50 03/24/20 00:00 98.8 106 20 121/70 (87) 100 03/24/20 00:00 106 03/24/20 00:00 50 03/24/20 00:00 Mechanical Ventilator 03/23/20 22:50 107 22 50 03/23/20 20:00 98.4 99 20 123/71 (88) 100 03/23/20 20:00 105 03/23/20 20:00 Mechanical Ventilator 03/23/20 20:00 50 03/23/20 19:07 104 17 50 03/23/20 16:24 97 03/23/20 16:00 50 03/23/20 16:00 Mechanical Ventilator 03/23/20 16:00 98.0 95 18 102/66 (78) 100 03/23/20 15:12 89 24 50 I&O Intake and Output 03/23/20 03/24/20 18:59 06:59 Intake Total 1020 ml 1267.691 ml Output Total 800 ml 860 ml Balance 220 ml 407.691 ml Free Water 300 ml 140 ml IV Total 407.691 ml Tube Feeding 720 ml 720 ml Output Urine Total 800 ml 860 ml # Bowel Movements 1 1 Dressing: saturated Cardiovascular: RSR Respiratory: decreased breath sounds Abdomen: soft, non-tender, present bowel sounds Extremities: no edema, no tenderness, no cyanosis Laboratory Tests Test 03/23/20 16:52 03/24/20 00:29 03/24/20 03:57 03/24/20 11:23 POC Whole Blood Glucose 118 MG/DL (74-106) H 203 MG/DL (74-106) H 206 MG/DL (74-106) H White Blood Count 15.7 K/UL (4.8-10.8) H Red Blood Count 3.42 M/UL (4.20-5.40) L Hemoglobin 9.3 G/DL (12.0-16.0) L Hematocrit 28.3 % (37.0-47.0) L Mean Corpuscular Volume 83 FL (80-99) # Mean Corpuscular Hemoglobin 27.3 PG (27.0-31.0) Mean Corpuscular Hemoglobin Concent 33.0 G/DL (32.0-36.0) Red Cell Distribution Width 19.3 % (11.6-14.8) H Platelet Count 655 K/UL (150-450) H Mean Platelet Volume 8.1 FL (6.5-10.1) Neutrophils (%) (Auto) 78.0 % (45.0-75.0) H Lymphocytes (%) (Auto) 11.8 % (20.0-45.0) L Monocytes (%) (Auto) 3.6 % (1.0-10.0) Eosinophils (%) (Auto) 5.9 % (0.0-3.0) H Basophils (%) (Auto) 0.7 % (0.0-2.0) Sodium Level 145 MMOL/L (136-145) Potassium Level 4.4 MMOL/L (3.5-5.1) Chloride Level 109 MMOL/L (98-107) H Carbon Dioxide Level 30 MMOL/L (21-32) Blood Urea Nitrogen 21 mg/dL (7-18) H Creatinine 1.0 MG/DL (0.55-1.30) Estimat Glomerular Filtration Rate > 60 mL/min (>60) Glucose Level 163 MG/DL (74-106) H Calcium Level 9.2 MG/DL (8.5-10.1) Plan Problems: (1) Hypernatremia (2) Sepsis (3) UTI (urinary tract infection) (4) Stage 4 decubitus ulcer Assessment & Plan: Stage 4 ulcer on admission. macerated edges. serous drainage. foul odor. no active infection Tx plan: wash with NS. apply therahoney gauze and dressing daily change prn saturation CT noted. osteo in sacrum cont abx osteo chronic will monitor and asses if debridement needed ABDOMEN: Liver: Unremarkable. No mass. Gallbladder and bile ducts: Unremarkable. No calcified stones. No ductal dilation. Pancreas: Unremarkable. No mass. No ductal dilation. Spleen: Spleen is small. Adrenals: Unremarkable. No mass. Kidneys and ureters: Renal cysts and subcentimeter low-attenuation foci, too small to characterize. No hydronephrosis. Stomach and bowel: Unremarkable. No obstruction. No mucosal thickening. PELVIS: Appendix: No findings to suggest acute appendicitis. Bladder: Bladder wall thickening. Foci of gas in the bladder. Correlate for recent instrumentation versus cystitis. Reproductive: Unremarkable as visualized. ABDOMEN and PELVIS: Intraperitoneal space: Unremarkable. No free air. No significant fluid collection. Bones/joints: Sacrococcygeal decubitus ulcers with associated osteomyelitis. There is some underlying bone thinning and sclerosis in the distal sacrum and coccyx underlying the decubitus ulcers. No acute fracture. No dislocation. Soft tissues: Unremarkable. Vasculature: Moderate plaque abdominal aorta and branches. No abdominal aortic aneurysm. Lymph nodes: Unremarkable. No enlarged lymph nodes. Tubes, lines and devices: Gastrostomy tube within the gastric body. IMPRESSION: 1. Sacrococcygeal decubitus ulcers with associated osteomyelitis. 2. Small left pleural effusion. Left lower lobe atelectasis. 3. Bladder wall thickening. Foci of gas in the bladder. Correlate for recent instrumentation versus cystitis. DAILY ESTIMATED NEEDS: Needs based on Advanced wound, critical care, underweight, CEMENT CAR DUMPER TF/ 45.5kg 30-40 kcals/kg 7010-9512 total kcals 1.5-2 g protein/kg 68-91 g total protein 30-40 mL/kg 3085-1967 total fluid mLs NUTRITION DIAGNOSIS: Increased kcal/prot needs R/T underweight status, wound healing as evidenced by pt @83% IBW w/ underweight BMI of 17.2, admitted w/ multiple wounds, including stage 4 sacral wound. CURRENT TF:Glucerna 1.2 @ 45ml/hr x 24 hrs ENTERAL NUTRITION RECOMMENDATIONS: Glucerna 1.2 @ 60ml/hr x 24 hrs to provide 1440ml, 1728kcal, 86g prot, 1159ml free water * Increase goal rate to 60ml/hr x 24 hrs to meet 100% est kcal/prot needs -> 1.9g prot/kg * HOB over 30 degrees/ water flush per MD * add Shen BID ADDITIONAL RECOMMENDATIONS: * Per SNF: HT=64" and HP=676# vs EMR wt of 147lbs -> rec daily calibrated bedscale wt * Wound healing: TF rec @ goal will provide 100% RDI Vit C 500mg BID, ZnSO4 220gm QD x 10 days Shen BID via PEG * Monitor BGs, consider NISS: h/o DM * Monitor lytes, replete as needed (5) Chronic respiratory failure requiring continuous mechanical ventilation through tracheostomy (6) History of intracranial hemorrhage (7) Idiopathic obstructive hydrocephalus (8) Gout (9) Diabetes mellitus (10) Parkinson's disease dementia (11) Acute on chronic respiratory failure (12) Chronic vegetative state (13) Severe protein-calorie malnutrition Assessment & Plan: DAILY ESTIMATED NEEDS: Needs based on Advanced wound, critical care, underweight, CEMENT CAR DUMPER TF/ 45.5kg 30-40 kcals/kg 5493-7729 total kcals 1.5-2 g protein/kg 68-91 g total protein 30-40 mL/kg 9256-3763 total fluid mLs NUTRITION DIAGNOSIS: Increased kcal/prot needs R/T underweight status, wound healing as evidenced by pt @83% IBW w/ underweight BMI of 17.2, admitted w/ multiple wounds, including stage 4 sacral wound. CURRENT TF:Glucerna 1.2 @ 60ml/hr x 24 hrs ENTERAL NUTRITION RECOMMENDATIONS: Glucerna 1.2 @ 60ml/hr x 24 hrs to provide 1440ml, 1728kcal, 86g prot, 1159ml free water * Maintain current TF rate as tolerated to meet 100% est kcal/prot needs -> 1.9g prot/kg. * HOB over 30 degrees/ water flush per MD * add Shen BID ADDITIONAL RECOMMENDATIONS: * Per SNF: HT=64" and DP=476# vs EMR wt of 147lbs -> Recalibrate bed scale for accurate CBW * Wound healing: TF rec @ goal will provide 100% RDI add Vit C 500mg BID, continue ZnSO4 220gm QD x 10 days Shen BID via PEG * Monitor BGs, consider NISS: h/o DM -> NISS now added * Increase water flushes for elevated Na (14) Hypercalcemia (15) Staphylococcus aureus bacteremia Assessment & Plan: unlikely related to wound checking often to ensure not worsening good local care being provided cont abx There is bilateral mostly upper lobe centrilobular emphysema. Mosaic attenuation pattern is seen throughout the bilateral upper lobes. There is consolidation and atelectasis of most of the left lower lobe. A few groundglass opacities are seen in the inferior left upper lobe. There is some compressive atelectasis at the right lung base with elevation of the right hemidiaphragm. There is a subpleural 8 mm nodular opacity in the right middle lobe. On recent abdomen pelvis CT scan, this demonstrated a cavity. The cavity is not evident currently There is a tracheostomy. The pleural spaces are clear. The heart size is normal. No pericardial effusion. No mediastinal or hilar mass or adenopathy. The ascending thoracic aorta is mildly ectatic, measuring up to 3.8 cm in diameter. The included portion of the thyroid is unremarkable. No axillary or chest wall mass or adenopathy demonstrated. There is smooth thoracic kyphosis without focal compression abnormality. The bones are unremarkable. Included upper abdominal anatomy demonstrates contrast in the colon from prior CT of the abdomen. There is a upper pole right renal cyst Impression: Centrilobular emphysema seen throughout both lungs with with an upper lobe predominance, indicating extensive COPD changes Mosaic attenuation pattern in the upper lobes probably related to COPD, although this is a nonspecific finding Dense consolidation and atelectasis of much of the left lower lobe. This could represent pneumonia. Groundglass opacities in the inferior left upper lobe. These could represent areas of acute inflammation, or could represent post inflammatory changes. 8mm nodule in the right middle lobe, also described on prior CT scan. This previously demonstrated a cavity. Cavitation currently not evident. Differential consider ations include neoplasm, acute or chronic inflammatory lesion. Recommend at a minimum follow-up CT scan in 6 months Tracheostomy Kyphosis Right upper pole renal cyst Chris Hunter Mar 24, 2020 13:55
--- NOTE | 2020-03-24 14:10 | Internal Med Progress Note ---
Subjective Date of Service: Mar 24, 2020 Physician Name JennPiyush Attending Physician Jesus Lutz MD Current Medications Medications (Trade) Dose Ordered Sig/Zaki Route PRN Reason Start Time Stop Time Status Last Admin Dose Admin Acetaminophen (Tylenol) 650 mg Q6H PRN GT Temp >100.5, Mild Pain 03/11/20 06:30 04/10/20 06:29 03/24/20 08:39 Aspirin (ASA) 81 mg DAILY GT 03/11/20 09:00 04/25/20 08:59 03/18/20 08:35 Calcitonin [place] (Miacalcin) 1 sprays DAILY NASAL 03/13/20 11:00 06/11/20 10:59 03/24/20 08:09 Dextrose (Dextrose 50%) 25 ml Q30M PRN IV Hypoglycemia 03/13/20 23:30 06/11/20 23:29 Dextrose (Dextrose 50%) 50 ml Q30M PRN IV Hypoglycemia 03/13/20 23:30 06/11/20 23:29 Diltiazem HCl (Cardizem Tab) 30 mg EVERY 8 HOURS GT 03/24/20 14:00 04/23/20 13:59 03/24/20 13:49 Diphenhydramine HCl (Benadryl) 25 mg Q8H PRN ORAL Itching 03/14/20 15:00 04/13/20 14:59 03/14/20 15:50 Famotidine (Pepcid) 20 mg BID GT 03/18/20 18:00 06/09/20 08:59 03/24/20 08:07 Insulin Aspart (NovoLOG) Q6HR SUBQ 03/14/20 00:00 06/12/20 00:00 03/24/20 11:30 Levofloxacin 150 ml @ 150 mls/hr Q48H IVPB 03/22/20 09:00 03/29/20 08:59 03/24/20 09:18 Linezolid 300 ml @ 300 mls/hr Q12HR IVPB 03/22/20 13:00 03/29/20 12:59 03/24/20 08:07 Ondansetron HCl (Zofran) 4 mg Q4H PRN IVP Nausea & Vomiting 03/11/20 06:30 04/10/20 06:29 Piperacillin Sod/ Tazobactam Sod 3.375 gm/Sodium Chloride 110 ml @ 27.5 mls/hr EVERY 8 HOURS IVPB 03/17/20 22:00 03/24/20 21:59 03/24/20 13:13 Allergies: Coded Allergies: No Known Allergies (Unverified , 03/11/20) ROS Limited/Unobtainable: Yes Subjective 74 YO F trach dependent admitted with hypoxic respiratory failure. Now pneumonia and sepsis. Cover for Int Med-Dr Lutz. Step down unit. fever of 100.0 F Objective Last Vital Signs Date Time Temp Pulse Resp B/P (MAP) Pulse Ox O2 Delivery O2 Flow Rate FiO2 03/24/20 13:49 100 122/75 03/24/20 12:00 97.9 20 100 03/24/20 12:00 50 03/24/20 12:00 Mechanical Ventilator Laboratory Tests Test 03/23/20 16:52 03/24/20 00:29 03/24/20 03:57 03/24/20 11:23 POC Whole Blood Glucose 118 MG/DL (74-106) H 203 MG/DL (74-106) H 206 MG/DL (74-106) H White Blood Count 15.7 K/UL (4.8-10.8) H Red Blood Count 3.42 M/UL (4.20-5.40) L Hemoglobin 9.3 G/DL (12.0-16.0) L Hematocrit 28.3 % (37.0-47.0) L Mean Corpuscular Volume 83 FL (80-99) # Mean Corpuscular Hemoglobin 27.3 PG (27.0-31.0) Mean Corpuscular Hemoglobin Concent 33.0 G/DL (32.0-36.0) Red Cell Distribution Width 19.3 % (11.6-14.8) H Platelet Count 655 K/UL (150-450) H Mean Platelet Volume 8.1 FL (6.5-10.1) Neutrophils (%) (Auto) 78.0 % (45.0-75.0) H Lymphocytes (%) (Auto) 11.8 % (20.0-45.0) L Monocytes (%) (Auto) 3.6 % (1.0-10.0) Eosinophils (%) (Auto) 5.9 % (0.0-3.0) H Basophils (%) (Auto) 0.7 % (0.0-2.0) Sodium Level 145 MMOL/L (136-145) Potassium Level 4.4 MMOL/L (3.5-5.1) Chloride Level 109 MMOL/L (98-107) H Carbon Dioxide Level 30 MMOL/L (21-32) Blood Urea Nitrogen 21 mg/dL (7-18) H Creatinine 1.0 MG/DL (0.55-1.30) Estimat Glomerular Filtration Rate > 60 mL/min (>60) Glucose Level 163 MG/DL (74-106) H Calcium Level 9.2 MG/DL (8.5-10.1) Microbiology Date/Time Source Procedure Growth Status 03/22/20 11:45 Indwelling Cath Urine Culture - Preliminary NO GROWTH AFTER 24 HOURS Resulted Intake and Output 03/23/20 03/24/20 19:00 07:00 Intake Total 1060 ml 1255.191 ml Output Total 800 ml 860 ml Balance 260 ml 395.191 ml Free Water 340 ml 100 ml IV Total 435.191 ml Tube Feeding 720 ml 720 ml Output Urine Total 800 ml 860 ml # Bowel Movements 1 1 Objective PHYSICAL EXAMINATION: GENERAL: The patient is a thin-appearing female who is intubated and nonverbal. HEENT: Eyes, pupils are equal and responsive to light and accommodation. Extraocular movements are intact. NECK: Supple without lymphadenopathy. Tracheostomy is in place. CHEST: Mech vent; Diffuse wheezes bilaterally without rhonchi. CARDIOVASCULAR: Tachycardic, regular rhythm. S1, S2 are normal without murmurs, rubs, or gallops. ABDOMEN: Soft, nontender, and nondistended. Positive bowel sounds. No evidence of hepatosplenomegaly. Currently, no rebound or guarding noted. EXTREMITIES: Negative for clubbing, cyanosis, or edema. RECTAL/GENITAL: Not performed. NEUROLOGIC: Unable to assess. chest x-ray revealed left lower lobe consolidation consistent with pneumonia Assessment/Plan Assessment/Plan ASSESSMENT: This is a 74-year-old female. 1. Left lower lobe pneumonia. 2. Respiratory failure. 3. Hypernatremia. 4. Renal failure. 5. Hypoxemia. 6. Tracheostomy dependence. 7. Chronic obstructive pulmonary disease. 8. Diabetes type 2. 9. Parkinson disease. 10. Gout. 11. Glaucoma. 12. Sacral decubitus ulcer stage IV. 13. History of intracranial hemorrhage. 14. Hydrocephalus. 15. sepsis=MRSA 16. UTI=MDR acenitobacter TREATMENT: 1. Left lower lobe pneumonia/respiratory failure/sepsis. Pulmonary consultation =Dr. Patti Matta. ABX= continue linezolid, zosyn and levaquin. S/P vanco-see ID note Infectious disease=Dr. Villegas. We will follow recommendations of Infectious Disease and Pulmonary. 2. Hypernatremia. Hypernatremia may be secondary to renal failure versus dehydration. Nephrology consultation =. 3. Renal failure nephrology consultation =Dr. Huntley. 4. Tracheostomy dependence. 5. Chronic obstructive pulmonary disease. 6. Diabetes type 2. NovoLog sliding scale has been instituted. 7. Parkinson disease. 8. Gout. Continue allopurinol as above. 9. Glaucoma. 10. Sacral decubitus ulcer stage IV. A general surgery consultation has been obtained with Dr. Chris Hunter. 11. History of intracranial hemorrhage. 12. DEBBIE refused by patient's daughter; cardiology=Trista Alejandre and Rachel 13. Await indium scan Piyush Barajas MD Mar 24, 2020 14:10
[2020-03-24 16:00] VITALS: BP 127/70
--- NOTE | 2020-03-24 18:30 | NUR ---
NURSE NOTES: Pt's temperature is 99.7. Placed cooling measures. Pt remains stable at this time. No signs of distress noted. Will continue plan of care. Will continue to monitor.
--- NOTE | 2020-03-24 19:00 | NUR ---
NURSE HAND-OFF REPORT: Important Events on Shift:[Mild fever] Patient Status: [Stable] Diet: [Glucerna 1.2 60cc/hr] Pending Orders: [NM Indium scan on 03/27] Pending Results/Labs:[NA] Pending MD notification:[NA] Latest Vital Signs: Temperature 97.9 , Pulse 103 , B/P 127 /70 , Respiratory Rate 20 , O2 SAT 100 , Mechanical Ventilator, O2 Flow Rate . Vital Sign Comment: [NA] EKG Rhythm: Sinus Tachycardia Rhythm change?: N MD Notified?: Zacarias Alejandre MD Response: Latest Ochoa Fall Score: 50 Fall Risk: High Risk Safety Measures: Call light Within Reach, Bed Alarm Zone 1, Side Rails Side Rails x3, Bed position Low and Locked. Fall Precautions: Yellow Socks Yellow Gown Door Sign Patient Fall Education Report given to [ADILENE Garrison].
--- NOTE | 2020-03-24 19:20 | NUR ---
NURSE NOTES: Received report from Vlad Abad, Pt in bed, asleep, non verbal, no signs or symptoms of acute cardiac or respiratory distress noted. On vent -trach with prescribed setting. Appears to be saturating @ 99%. With G tube running Glucerna 1.2 at 60cc/hr - no residual noted. Collier catheter intact and draining to gravity with color yellow urine , repositioned and turned pt.R wrist #20g IV intact, patent and flushed well, TKO. Aspiration precautions observed- HOB elevated, skin precautions observed, will continue to monitor pt. Bed alarm on, side rails up x's 3 and safety brakes engaged, call light within easy reach.
[2020-03-24 20:00] VITALS: BP 136/76
--- NOTE | 2020-03-24 20:53 | NUR ---
NURSE NOTES: Noted f 101.1 temperature. Administered tylenol 650mg. Cooling measures applied. Will continue to monitor
--- NOTE | 2020-03-24 21:23 | NUR ---
NURSE NOTES: Latest temp is 99.1 after tylenol given.
[2020-03-25] VITALS (8 sets, daily range): BP systolic 108–131; BP diastolic 62–78
--- NOTE | 2020-03-25 02:00 | NUR ---
NURSE NOTES: Pt sleeping comfortably, in no apparent acute respiratory and cardiac distress. Oral care provide, turned and repositioned per protocol. Will continue plan of care.
[2020-03-25] MEDS: NovoLOG Insulin Flexpen SUBQ SCH ×4 (05:17→23:28)
[2020-03-25] MEDS: dilTIAZem HCl 30mg tab GT SCH ×3 (05:29→22:00)
[2020-03-25] MEDS: Piperacillin/Tazobactam 3.375 GM in NS 110 ML IVPB SCH ×3 (05:30→21:57)
--- NOTE | 2020-03-25 07:09 | NUR ---
NURSE NOTES: Received report from ADILENE Perez. Patient is resting in bed, in stable condition. No s/sx of SOB, breathing is even and unlabored, vent settings as ordered. Patient is nonverbal, observed no presence of pain or discomfort at this time. Bed is in lowest position, brakes engaged. Call light is kept within easy reach. Will continue to monitor patient.
--- NOTE | 2020-03-25 07:10 | NUR ---
NURSE HAND-OFF REPORT: Important Events on Shift: NONE Patient Status: Stable Diet: Glucerna 1.2 Pending Orders: Pending Results/Labs: Pending MD notification: Latest Vital Signs: Temperature 99.5 , Pulse 104 , B/P 122 /75 , Respiratory Rate 20 , O2 SAT 100 , Mechanical Ventilator, O2 Flow Rate . Vital Sign Comment: EKG Rhythm: Sinus Rhythm Rhythm change?: N MD Notified?: MD Response: Latest Ochoa Fall Score: 50 Fall Risk: High Risk Safety Measures: Call light Within Reach, Bed Alarm Zone 1, Side Rails Side Rails x3, Bed position Low and Locked. Fall Precautions: Yellow Socks Yellow Gown Door Sign Patient Fall Education Report given to ADILENE Noonan.
[2020-03-25] MEDS: Aspirin Baby 81mg GT SCH (08:32)
--- NOTE | 2020-03-25 09:01 | Infectious Diseases Prog Note ---
Assessment/Plan 74yo F with: Febrile, persistent Leukocytosis, persistent Thrombocytosis, increasing Sepsis Left lower lung infiltrate Acute on chronic resp failure SP trach MRSA bacteremia - DEBBIE cancelled as family refused RML cavitation, not seen on CT chest 03/11 BCx +MRSA Resp cx +PsA (S-Zosyn, I-merissa and cefepime) UCx 30-40k ACB (colonizer) COVID rapid Ag neg CXR: Midline tracheostomy. Small left pleural effusion. Hyperinflation with flattening of the diaphragms and emphysema, consistent with COPD. No lobar infiltrate. 03/12 BCx NTD 03/13 C.dif neg 03/13 BCx NTD 03/14 BCx NTD 03/14 CT A/P: 1. 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 2. Small left pleural effusion. Left lower lobe atelectasis. 3. Bladder wall thickening. Foci of gas in the bladder. Correlate for recent instrumentation versus cystitis. Lung bases: Small nodular focus of cavitation in the right middle lobe. This may be secondary to infection. Recommend continued follow-up. Emphysematous changes in the lung bases. 1.2 cm nodular focus with some central cavitation in the right middle lobe. Pleural space: Small left pleural effusion. Left lower lobe atelectasis. 03/14 TTE: No vegetations, thickened valves 03/17 CXR: 1. Unchanged tracheostomy. 2. Mildly more pronounced linear interstitial prominence could represent atypical infection or interstitial pulmonary edema in the proper clinical context. 3. Unchanged hyperinflation. 4. Unchanged mild retrocardiac atelectasis without or with consolidation. 03/20 BCx p 03/20 CT chest: Centrilobular emphysema seen throughout both lungs with with an upper lobe predominance, indicating extensive COPD changes. Mosaic attenuation pattern in the upper lobes probably related to COPD, although this is a nonspecific finding. Dense consolidation and atelectasis of much of the left lower lobe. This could represent pneumonia. Groundglass opacities in the inferior left upper lobe. These could represent areas of acute inflammation, or could represent post inflammatory changes. 8mm nodule in the right middle lobe, also described on prior CT scan. This previously demonstrated a cavity. Cavitation currently not evident. Differential considerations include neoplasm, acute or chronic inflammatory lesion. Recommend at a minimum follow-up CT scan in 6 months 03/21 Resp cx p 03/21 SPC changed 03/22 UA/UCx p BUE and BLE neg for DVT 03/21 MRSA nares positive VDRF S/p trach/PEG Bed bound Sacral decub ulceration w/ underlying OM Plan: Start levofloxacin #3 to cover for prior found ACB in UCx given ongoing fevers Cont Zosyn #8 for broader coverage given ongoing fever, increasing WBC, pna (PsA in resp cx I-merissa) Cont Zyvox # 3, for MRSA bacteremia, duration TBD -03/22 Sp IV vancomycin #11 -03/14 SP cefepime #4 Agree with hospice evaluation if family decides Given ongoing fevers, high platelets, slow to improve leukocytosis, high s/f undiagnosed endocarditis, c/w aortic root abscess given ongoing fevers. DEBBIE wou ld be helpful for diagnosis - EKG today, IN interval 110, wnl - Consider cardiac MRI vs PET vs tagged WBC if ongoing fevers and pt not definitively going w/ hospice UA/UCx today F/u repeat BCx 03/20 given ongoing fevers F/u repeat sputum cx 03/21 Trend WBC Trend plts Trend temp curve - WBC Scan ( TOMASA RN) Monitor CBC/CMP Monitor temp curve, hemodynamics Monitor resp status D/w RN and Dr. Matta Thank you for this consult. [facility] will continue to follow. Subjective Allergies: Coded Allergies: No Known Allergies (Unverified , 03/11/20) Stable on Vent 50% O2 Continued fever WBCs stable at 16 NM scan pending as is repeat CXR Objective Last 24 Hour Vital Signs Date Time Temp Pulse Resp B/P (MAP) Pulse Ox O2 Delivery O2 Flow Rate FiO2 03/25/20 08:00 Mechanical Ventilator 03/25/20 08:00 98.7 107 20 110/78 (89) 100 03/25/20 08:00 50 03/25/20 07:08 107 27 35 03/25/20 05:29 104 122/75 03/25/20 04:00 97 03/25/20 04:00 99.5 104 20 122/75 (91) 100 03/25/20 04:00 Mechanical Ventilator 03/25/20 04:00 50 03/25/20 03:31 96 30 35 03/25/20 00:00 93 03/25/20 00:00 50 03/25/20 00:00 98.7 95 22 114/68 (83) 100 03/25/20 00:00 Mechanical Ventilator 03/24/20 22:52 102 24 35 03/24/20 22:37 105 120/73 03/24/20 21:23 99.1 03/24/20 20:00 115 03/24/20 20:00 Mechanical Ventilator 03/24/20 20:00 101.1 113 20 136/76 (96) 100 03/24/20 20:00 50 03/24/20 19:16 111 26 35 03/24/20 16:00 Mechanical Ventilator 03/24/20 16:00 50 03/24/20 16:00 97.9 103 20 127/70 (89) 100 03/24/20 15:37 103 03/24/20 15:21 102 25 35 03/24/20 13:49 100 122/75 03/24/20 12:00 97.9 110 20 148/72 (97) 100 03/24/20 12:00 50 03/24/20 12:00 Mechanical Ventilator 03/24/20 11:22 109 03/24/20 11:00 97 24 50 03/24/20 09:09 100.0 Height (Feet): 5 Height (Inches): 5.00 Weight (Pounds): 147 GEN: NAD HEENT: NCAT, On Vent Respiratory/Chest: no accessory muscle use, RRR Abdomen: Soft , ND Microbiology Date/Time Source Procedure Growth Status 03/22/20 11:45 Indwelling Cath Urine Culture - Preliminary NO GROWTH AFTER 24 HOURS Resulted Laboratory Tests Test 03/24/20 11:23 03/24/20 16:38 03/24/20 23:35 03/25/20 05:15 POC Whole Blood Glucose 206 MG/DL (74-106) H 169 MG/DL (74-106) H 239 MG/DL (74-106) H 151 MG/DL (74-106) H Current Medications Medications (Trade) Dose Ordered Sig/Zaki Route PRN Reason Start Time Stop Time Status Last Admin Dose Admin Acetaminophen (Tylenol) 650 mg Q6H PRN GT Temp >100.5, Mild Pain 03/11/20 06:30 04/10/20 06:29 03/24/20 20:53 Aspirin (ASA) 81 mg DAILY GT 03/11/20 09:00 04/25/20 08:59 03/18/20 08:35 Calcitonin [place] (Miacalcin) 1 sprays DAILY NASAL 03/13/20 11:00 06/11/20 10:59 03/25/20 08:32 Dextrose (Dextrose 50%) 25 ml Q30M PRN IV Hypoglycemia 03/13/20 23:30 06/11/20 23:29 Dextrose (Dextrose 50%) 50 ml Q30M PRN IV Hypoglycemia 03/13/20 23:30 06/11/20 23:29 Diltiazem HCl (Cardizem Tab) 30 mg EVERY 8 HOURS GT 03/24/20 14:00 04/23/20 13:59 03/25/20 05:29 Diphenhydramine HCl (Benadryl) 25 mg Q8H PRN ORAL Itching 03/14/20 15:00 04/13/20 14:59 03/14/20 15:50 Famotidine (Pepcid) 20 mg BID GT 03/18/20 18:00 06/09/20 08:59 03/25/20 08:31 Insulin Aspart (NovoLOG) Q6HR SUBQ 03/14/20 00:00 06/12/20 00:00 03/25/20 05:17 Levofloxacin 150 ml @ 150 mls/hr Q48H IVPB 03/22/20 09:00 03/29/20 08:59 03/24/20 09:18 Linezolid 300 ml @ 300 mls/hr Q12HR IVPB 03/22/20 13:00 03/29/20 12:59 03/25/20 08:31 Ondansetron HCl (Zofran) 4 mg Q4H PRN IVP Nausea & Vomiting 03/11/20 06:30 04/10/20 06:29 Piperacillin Sod/ Tazobactam Sod 3.375 gm/Sodium Chloride 110 ml @ 27.5 mls/hr EVERY 8 HOURS IVPB 03/17/20 22:00 03/31/20 21:59 03/25/20 05:30 Maynor Gaspar MD Mar 25, 2020 09:01
[2020-03-25 09:21] LABS: HEMATOCRIT 25.7 % (37.0-47.0); HEMOGLOBIN 8.6 G/DL (12.0-16.0); MEAN CORPUSCULAR VOLUME 82 FL (80-99); PLATELET COUNT 598 K/UL (150-450); RED BLOOD COUNT 3.12 M/UL (4.20-5.40); RED CELL DISTRIBUTION WIDTH 18.7 % (11.6-14.8); WHITE BLOOD COUNT 19.6 K/UL (4.8-10.8)
[2020-03-25 10:27] LABS: ALANINE AMINOTRANSFERASE 21 U/L (12-78); ALBUMIN 1.3 G/DL (3.4-5.0); ALBUMIN/GLOBULIN RATIO 0.2 (1.0-2.7); ALKALINE PHOSPHATASE 86 U/L (46-116); ANION GAP 7 mmol/L (5-15); ASPARTATE AMINO TRANSFERASE 18 U/L (15-37); BILIRUBIN,TOTAL 0.2 MG/DL (0.2-1.0); BLOOD UREA NITROGEN 18 mg/dL (7-18); CALCIUM 8.8 MG/DL (8.5-10.1); CARBON DIOXIDE 28 MMOL/L (21-32); CHLORIDE 109 MMOL/L (98-107); CREATININE 0.8 MG/DL (0.55-1.30); PHOSPHORUS 3.4 MG/DL (2.5-4.9); POTASSIUM 4.3 MMOL/L (3.5-5.1); SODIUM 144 MMOL/L (136-145)
--- NOTE | 2020-03-25 11:07 | Diagnostic Imaging Report ---
EXAM: XR Chest, 1 View CLINICAL HISTORY: SOB TECHNIQUE: Frontal view of the chest. COMPARISON: Chest radiograph on 03/21/2020 FINDINGS: Hardware: Tracheostomy tube in place. Lungs/pleura: Asymmetric lucency in the right lung may be secondary to artifact from patient rotation. Decreased left pleural effusion. Patchy opacity in the left lower lung may represent atelectasis versus pneumonia. Heart/mediastinum: Atherosclerotic calcifications in the aorta. No cardiomegaly. Soft tissues: Unremarkable. Bones: No acute fracture. Upper abdomen: Normal. IMPRESSION: 1. Decreased left pleural effusion. Patchy opacity in the left lower lung may represent atelectasis versus pneumonia. 2. Asymmetric lucency in the right lung may be secondary to artifact from patient rotation.
[2020-03-25] MEDS ORDERED: NS 275ml ONE (13:31)
--- NOTE | 2020-03-25 14:40 | Surgery Progress Note ---
Surgery Progress Note Subjective Additional Comments worsening leukocytosis labs noted exam unchanged cxr noted Objective Last 24 Hour Vital Signs Date Time Temp Pulse Resp B/P (MAP) Pulse Ox O2 Delivery O2 Flow Rate FiO2 03/25/20 13:06 109 127/70 03/25/20 13:00 109 127/70 (89) 03/25/20 12:00 35 03/25/20 12:00 113 03/25/20 12:00 Mechanical Ventilator 03/25/20 11:55 99.0 113 20 131/73 (92) 100 03/25/20 11:18 113 25 35 03/25/20 08:00 Mechanical Ventilator 03/25/20 08:00 105 03/25/20 08:00 98.7 107 20 110/78 (89) 100 03/25/20 08:00 35 03/25/20 07:08 107 27 35 03/25/20 05:29 104 122/75 03/25/20 04:00 97 03/25/20 04:00 99.5 104 20 122/75 (91) 100 03/25/20 04:00 Mechanical Ventilator 03/25/20 04:00 50 03/25/20 03:31 96 30 35 03/25/20 00:00 93 03/25/20 00:00 50 03/25/20 00:00 98.7 95 22 114/68 (83) 100 03/25/20 00:00 Mechanical Ventilator 03/24/20 22:52 102 24 35 03/24/20 22:37 105 120/73 03/24/20 21:23 99.1 03/24/20 20:00 115 03/24/20 20:00 Mechanical Ventilator 03/24/20 20:00 101.1 113 20 136/76 (96) 100 03/24/20 20:00 50 03/24/20 19:16 111 26 35 03/24/20 16:00 Mechanical Ventilator 03/24/20 16:00 50 03/24/20 16:00 97.9 103 20 127/70 (89) 100 03/24/20 15:37 103 03/24/20 15:21 102 25 35 I&O Intake and Output 03/24/20 03/25/20 19:00 07:00 Intake Total 1080 ml 1220 ml Output Total 1100 ml 900 ml Balance -20 ml 320 ml Free Water 360 ml 150 ml IV Total 410 ml Tube Feeding 720 ml 660 ml Output Urine Total 1100 ml 900 ml # Bowel Movements 2 2 Dressing: saturated Cardiovascular: RSR Respiratory: decreased breath sounds Abdomen: non-tender, present bowel sounds Extremities: no tenderness, no cyanosis Laboratory Tests Test 03/24/20 16:38 03/24/20 23:35 03/25/20 05:15 03/25/20 08:35 POC Whole Blood Glucose 169 MG/DL (74-106) H 239 MG/DL (74-106) H 151 MG/DL (74-106) H White Blood Count 19.6 K/UL (4.8-10.8) H Red Blood Count 3.12 M/UL (4.20-5.40) L Hemoglobin 8.6 G/DL (12.0-16.0) L Hematocrit 25.7 % (37.0-47.0) L Mean Corpuscular Volume 82 FL (80-99) Mean Corpuscular Hemoglobin 27.5 PG (27.0-31.0) Mean Corpuscular Hemoglobin Concent 33.4 G/DL (32.0-36.0) Red Cell Distribution Width 18.7 % (11.6-14.8) H Platelet Count 598 K/UL (150-450) H Mean Platelet Volume 8.2 FL (6.5-10.1) Neutrophils (%) (Auto) % (45.0-75.0) Lymphocytes (%) (Auto) % (20.0-45.0) Monocytes (%) (Auto) % (1.0-10.0) Eosinophils (%) (Auto) % (0.0-3.0) Basophils (%) (Auto) % (0.0-2.0) Differential Total Cells Counted 100 Neutrophils % (Manual) 85 % (45-75) H Lymphocytes % (Manual) 6 % (20-45) L Monocytes % (Manual) 6 % (1-10) Eosinophils % (Manual) 3 % (0-3) Basophils % (Manual) 0 % (0-2) Band Neutrophils 0 % (0-8) Platelet Estimate Increased H Platelet Morphology Normal Anisocytosis 1+ Microcytosis 1+ Macrocytosis Erythrocyte Sedimentation Rate 125 MM/HR (0-30) H Sodium Level 144 MMOL/L (136-145) Potassium Level 4.3 MMOL/L (3.5-5.1) Chloride Level 109 MMOL/L (98-107) H Carbon Dioxide Level 28 MMOL/L (21-32) Anion Gap 7 mmol/L (5-15) Blood Urea Nitrogen 18 mg/dL (7-18) Creatinine 0.8 MG/DL (0.55-1.30) Estimat Glomerular Filtration Rate > 60 mL/min (>60) Glucose Level 170 MG/DL (74-106) H Calcium Level 8.8 MG/DL (8.5-10.1) Phosphorus Level 3.4 MG/DL (2.5-4.9) Magnesium Level 2.1 MG/DL (1.8-2.4) Total Bilirubin 0.2 MG/DL (0.2-1.0) Aspartate Amino Transf (AST/SGOT) 18 U/L (15-37) Alanine Aminotransferase (ALT/SGPT) 21 U/L (12-78) Alkaline Phosphatase 86 U/L (46-116) C-Reactive Protein, Quantitative 19.2 mg/dL (0.00-0.90) H Total Protein 7.2 G/DL (6.4-8.2) Albumin 1.3 G/DL (3.4-5.0) L Globulin 5.9 g/dL Albumin/Globulin Ratio 0.2 (1.0-2.7) L Test 03/25/20 12:06 POC Whole Blood Glucose 217 MG/DL (74-106) H Plan Problems: (1) Hypernatremia (2) Sepsis (3) UTI (urinary tract infection) (4) Stage 4 decubitus ulcer Assessment & Plan: Stage 4 ulcer on admission. macerated edges. serous drainage. foul odor. no active infection Tx plan: wash with NS. apply therahoney gauze and dressing daily change prn saturation CT noted. osteo in sacrum cont abx osteo chronic will monitor and asses if debridement needed ABDOMEN: Liver: Unremarkable. No mass. Gallbladder and bile ducts: Unremarkable. No calcified stones. No ductal dilation. Pancreas: Unremarkable. No mass. No ductal dilation. Spleen: Spleen is small. Adrenals: Unremarkable. No mass. Kidneys and ureters: Renal cysts and subcentimeter low-attenuation foci, too small to characterize. No hydronephrosis. Stomach and bowel: Unremarkable. No obstruction. No mucosal thickening. PELVIS: Appendix: No findings to suggest acute appendicitis. Bladder: Bladder wall thickening. Foci of gas in the bladder. Correlate for recent instrumentation versus cystitis. Reproductive: Unremarkable as visualized. ABDOMEN and PELVIS: Intraperitoneal space: Unremarkable. No free air. No significant fluid collection. Bones/joints: Sacrococcygeal decubitus ulcers with associated osteomyelitis. There is some underlying bone thinning and sclerosis in the distal sacrum and coccyx underlying the decubitus ulcers. No acute fracture. No dislocation. Soft tissues: Unremarkable. Vasculature: Moderate plaque abdominal aorta and branches. No abdominal aortic aneurysm. Lymph nodes: Unremarkable. No enlarged lymph nodes. Tubes, lines and devices: Gastrostomy tube within the gastric body. IMPRESSION: 1. Sacrococcygeal decubitus ulcers with associated osteomyelitis. 2. Small left pleural effusion. Left lower lobe atelectasis. 3. Bladder wall thickening. Foci of gas in the bladder. Correlate for recent instrumentation versus cystitis. DAILY ESTIMATED NEEDS: Needs based on Advanced wound, critical care, underweight, [employer] TF/ 45.5kg 30-40 kcals/kg 7914-1634 total kcals 1.5-2 g protein/kg 68-91 g total protein 30-40 mL/kg 4233-8698 total fluid mLs NUTRITION DIAGNOSIS: Increased kcal/prot needs R/T underweight status, wound healing as evidenced by pt @83% IBW w/ underweight BMI of 17.2, admitted w/ multiple wounds, including stage 4 sacral wound. CURRENT TF:Glucerna 1.2 @ 45ml/hr x 24 hrs ENTERAL NUTRITION RECOMMENDATIONS: Glucerna 1.2 @ 60ml/hr x 24 hrs to provide 1440ml, 1728kcal, 86g prot, 1159ml free water * Increase goal rate to 60ml/hr x 24 hrs to meet 100% est kcal/prot needs -> 1.9g prot/kg * HOB over 30 degrees/ water flush per MD * add Shen BID ADDITIONAL RECOMMENDATIONS: * Per SNF: HT=64" and VD=263# vs EMR wt of 147lbs -> rec daily calibrated bedscale wt * Wound healing: TF rec @ goal will provide 100% RDI Vit C 500mg BID, ZnSO4 220gm QD x 10 days Shen BID via PEG * Monitor BGs, consider NISS: h/o DM * Monitor lytes, replete as needed (5) Chronic respiratory failure requiring continuous mechanical ventilation through tracheostomy (6) History of intracranial hemorrhage (7) Idiopathic obstructive hydrocephalus (8) Gout (9) Diabetes mellitus (10) Parkinson's disease dementia (11) Acute on chronic respiratory failure (12) Chronic vegetative state (13) Severe protein-calorie malnutrition Assessment & Plan: DAILY ESTIMATED NEEDS: Needs based on Advanced wound, critical care, underweight, [employer] TF/ 45.5kg 30-40 kcals/kg 2247-8289 total kcals 1.5-2 g protein/kg 68-91 g total protein 30-40 mL/kg 0894-8991 total fluid mLs NUTRITION DIAGNOSIS: Increased kcal/prot needs R/T underweight status, wound healing as evidenced by pt @83% IBW w/ underweight BMI of 17.2, admitted w/ multiple wounds, including stage 4 sacral wound. CURRENT TF:Glucerna 1.2 @ 60ml/hr x 24 hrs ENTERAL NUTRITION RECOMMENDATIONS: Glucerna 1.2 @ 60ml/hr x 24 hrs to provide 1440ml, 1728kcal, 86g prot, 1159ml free water * Maintain current TF rate as tolerated to meet 100% est kcal/prot needs -> 1.9g prot/kg. * HOB over 30 degrees/ water flush per MD * add Shen BID ADDITIONAL RECOMMENDATIONS: * Per SNF: HT=64" and OW=121# vs EMR wt of 147lbs -> Recalibrate bed scale for accurate CBW * Wound healing: TF rec @ goal will provide 100% RDI add Vit C 500mg BID, continue ZnSO4 220gm QD x 10 days Shen BID via PEG * Monitor BGs, consider NISS: h/o DM -> NISS now added * Increase water flushes for elevated Na (14) Hypercalcemia (15) Staphylococcus aureus bacteremia Assessment & Plan: unlikely related to wound checking often to ensure not worsening good local care being provided cont abx There is bilateral mostly upper lobe centrilobular emphysema. Mosaic attenuation pattern is seen throughout the bilateral upper lobes. There is consolidation and atelectasis of most of the left lower lobe. A few groundglass opacities are seen in the inferior left upper lobe. There is some compressive atelectasis at the right lung base with elevation of the right hemidiaphragm. There is a subpleural 8 mm nodular opacity in the right middle lobe. On recent abdomen pelvis CT scan, this demonstrated a cavity. The cavity is not evident currently There is a tracheostomy. The pleural spaces are clear. The heart size is normal. No pericardial effusion. No mediastinal or hilar mass or adenopathy. The ascending thoracic aorta is mildly ectatic, measuring up to 3.8 cm in diameter. The included portion of the thyroid is unremarkable. No axillary or chest wall mass or adenopathy demonstrated. There is smooth thoracic kyphosis without focal compression abnormality. The bones are unremarkable. Included upper abdominal anatomy demonstrates contrast in the colon from prior CT of the abdomen. There is a upper pole right renal cyst Impression: Centrilobular emphysema seen throughout both lungs with with an upper lobe predominance, indicating extensive COPD changes Mosaic attenuation pattern in the upper lobes probably related to COPD, although this is a nonspecific finding Dense consolidation and atelectasis of much of the left lower lobe. This could represent pneumonia. Groundglass opacities in the inferior left upper lobe. These could represent areas of acute inflammation, or could represent post inflammatory changes. 8mm nodule in the right middle lobe, also described on prior CT scan. This previously demonstrated a cavity. Cavitation currently not evident. Differential considerations include neoplasm, acute or chronic inflammatory lesion. Recommend at a minimum follow-up CT scan in 6 months Tracheostomy Kyphosis Right upper pole renal cyst Chris Hunter Mar 25, 2020 14:40
--- NOTE | 2020-03-25 15:06 | Internal Med Progress Note ---
Subjective Date of Service: Mar 25, 2020 Physician Name JennPiyush Attending Physician Jesus Lutz MD Current Medications Medications (Trade) Dose Ordered Sig/Zaki Route PRN Reason Start Time Stop Time Status Last Admin Dose Admin Acetaminophen (Tylenol) 650 mg Q6H PRN GT Temp >100.5, Mild Pain 03/11/20 06:30 04/10/20 06:29 03/24/20 20:53 Aspirin (ASA) 81 mg DAILY GT 03/11/20 09:00 04/25/20 08:59 03/18/20 08:35 Calcitonin Severance (Miacalcin) 1 sprays DAILY NASAL 03/13/20 11:00 06/11/20 10:59 03/25/20 08:32 Dextrose (Dextrose 50%) 25 ml Q30M PRN IV Hypoglycemia 03/13/20 23:30 06/11/20 23:29 Dextrose (Dextrose 50%) 50 ml Q30M PRN IV Hypoglycemia 03/13/20 23:30 06/11/20 23:29 Diltiazem HCl (Cardizem Tab) 30 mg EVERY 8 HOURS GT 03/24/20 14:00 04/23/20 13:59 03/25/20 13:06 Diphenhydramine HCl (Benadryl) 25 mg Q8H PRN ORAL Itching 03/14/20 15:00 04/13/20 14:59 03/14/20 15:50 Famotidine (Pepcid) 20 mg BID GT 03/18/20 18:00 06/09/20 08:59 03/25/20 08:31 Insulin Aspart (NovoLOG) Q6HR SUBQ 03/14/20 00:00 06/12/20 00:00 03/25/20 12:25 Levofloxacin 150 ml @ 150 mls/hr Q48H IVPB 03/22/20 09:00 03/29/20 08:59 03/24/20 09:18 Linezolid 300 ml @ 300 mls/hr Q12HR IVPB 03/22/20 13:00 03/29/20 12:59 03/25/20 08:31 Ondansetron HCl (Zofran) 4 mg Q4H PRN IVP Nausea & Vomiting 03/11/20 06:30 04/10/20 06:29 Piperacillin Sod/ Tazobactam Sod 3.375 gm/Sodium Chloride 110 ml @ 27.5 mls/hr EVERY 8 HOURS IVPB 03/17/20 22:00 03/31/20 21:59 03/25/20 13:12 Allergies: Coded Allergies: No Known Allergies (Unverified , 03/11/20) ROS Limited/Unobtainable: Yes Subjective 74 YO F trach dependent admitted with hypoxic respiratory failure. Now pneumonia and sepsis. Cover for Int Med-Dr Lutz. Step down unit. fever of 100.0 F Objective Last Vital Signs Date Time Temp Pulse Resp B/P (MAP) Pulse Ox O2 Delivery O2 Flow Rate FiO2 03/25/20 13:06 109 127/70 03/25/20 12:00 35 03/25/20 12:00 Mechanical Ventilator 03/25/20 11:55 99.0 20 100 Laboratory Tests Test 03/24/20 16:38 03/24/20 23:35 03/25/20 05:15 03/25/20 08:35 POC Whole Blood Glucose 169 MG/DL (74-106) H 239 MG/DL (74-106) H 151 MG/DL (74-106) H White Blood Count 19.6 K/UL (4.8-10.8) H Red Blood Count 3.12 M/UL (4.20-5.40) L Hemoglobin 8.6 G/DL (12.0-16.0) L Hematocrit 25.7 % (37.0-47.0) L Mean Corpuscular Volume 82 FL (80-99) Mean Corpuscular Hemoglobin 27.5 PG (27.0-31.0) Mean Corpuscular Hemoglobin Concent 33.4 G/DL (32.0-36.0) Red Cell Distribution Width 18.7 % (11.6-14.8) H Platelet Count 598 K/UL (150-450) H Mean Platelet Volume 8.2 FL (6.5-10.1) Neutrophils (%) (Auto) % (45.0-75.0) Lymphocytes (%) (Auto) % (20.0-45.0) Monocytes (%) (Auto) % (1.0-10.0) Eosinophils (%) (Auto) % (0.0-3.0) Basophils (%) (Auto) % (0.0-2.0) Differential Total Cells Counted 100 Neutrophils % (Manual) 85 % (45-75) H Lymphocytes % (Manual) 6 % (20-45) L Monocytes % (Manual) 6 % (1-10) Eosinophils % (Manual) 3 % (0-3) Basophils % (Manual) 0 % (0-2) Band Neutrophils 0 % (0-8) Platelet Estimate Increased H Platelet Morphology Normal Anisocytosis 1+ Microcytosis 1+ Macrocytosis Erythrocyte Sedimentation Rate 125 MM/HR (0-30) H Sodium Level 144 MMOL/L (136-145) Potassium Level 4.3 MMOL/L (3.5-5.1) Chloride Level 109 MMOL/L (98-107) H Carbon Dioxide Level 28 MMOL/L (21-32) Anion Gap 7 mmol/L (5-15) Blood Urea Nitrogen 18 mg/dL (7-18) Creatinine 0.8 MG/DL (0.55-1.30) Estimat Glomerular Filtration Rate > 60 mL/min (>60) Glucose Level 170 MG/DL (74-106) H Calcium Level 8.8 MG/DL (8.5-10.1) Phosphorus Level 3.4 MG/DL (2.5-4.9) Magnesium Level 2.1 MG/DL (1.8-2.4) Total Bilirubin 0.2 MG/DL (0.2-1.0) Aspartate Amino Transf (AST/SGOT) 18 U/L (15-37) Alanine Aminotransferase (ALT/SGPT) 21 U/L (12-78) Alkaline Phosphatase 86 U/L (46-116) C-Reactive Protein, Quantitative 19.2 mg/dL (0.00-0.90) H Total Protein 7.2 G/DL (6.4-8.2) Albumin 1.3 G/DL (3.4-5.0) L Globulin 5.9 g/dL Albumin/Globulin Ratio 0.2 (1.0-2.7) L Test 03/25/20 12:06 POC Whole Blood Glucose 217 MG/DL (74-106) H Intake and Output 03/24/20 03/25/20 19:00 07:00 Intake Total 1080 ml 1220 ml Output Total 1100 ml 900 ml Balance -20 ml 320 ml Free Water 360 ml 150 ml IV Total 410 ml Tube Feeding 720 ml 660 ml Output Urine Total 1100 ml 900 ml # Bowel Movements 2 2 Objective PHYSICAL EXAMINATION: GENERAL: The patient is a thin-appearing female who is intubated and nonverbal. HEENT: Eyes, pupils are equal and responsive to light and accommodation. Extraocular movements are intact. NECK: Supple without lymphadenopathy. Tracheostomy is in place. CHEST: Mech vent; Diffuse wheezes bilaterally without rhonchi. CARDIOVASCULAR: Tachycardic, regular rhythm. S1, S2 are normal without murmurs, rubs, or gallops. ABDOMEN: Soft, nontender, and nondistended. Positive bowel sounds. No evidence of hepatosplenomegaly. Currently, no rebound or guarding noted. EXTREMITIES: Negative for clubbing, cyanosis, or edema. RECTAL/GENITAL: Not performed. NEUROLOGIC: Unable to assess. chest x-ray revealed left lower lobe consolidation consistent with pneumonia Assessment/Plan Assessment/Plan ASSESSMENT: This is a 74-year-old female. 1. Left lower lobe pneumonia. 2. Respiratory failure. 3. Hypernatremia. 4. Renal failure. 5. Hypoxemia. 6. Tracheostomy dependence. 7. Chronic obstructive pulmonary disease. 8. Diabetes type 2. 9. Parkinson disease. 10. Gout. 11. Glaucoma. 12. Sacral decubitus ulcer stage IV. 13. History of intracranial hemorrhage. 14. Hydrocephalus. 15. sepsis=MRSA 16. UTI=MDR acenitobacter TREATMENT: 1. Left lower lobe pneumonia/respiratory failure/sepsis. Pulmonary consultation =Dr. Patti Matta. ABX= continue linezolid, zosyn and levaquin. S/P vanco-see ID note Infectious disease=Dr. Villegas. We will follow recommendations of Infectious Disease and Pulmonary. 2. Hypernatremia. Hypernatremia may be secondary to renal failure versus dehydration. Nephrology consultation =. 3. Renal failure nephrology consultation =Dr. Huntley. 4. Tracheostomy dependence. 5. Chronic obstructive pulmonary disease. 6. Diabetes type 2. NovoLog sliding scale has been instituted. 7. Parkinson disease. 8. Gout. Continue allopurinol as above. 9. Glaucoma. 10. Sacral decubitus ulcer stage IV. A general surgery consultation has been obtained with Dr. Chris Hunter. 11. History of intracranial hemorrhage. 12. DEBBIE refused by patient's daughter; cardiology=Trista Alejandre and Rachel 13. Await indium scan Piyush Barajas MD Mar 25, 2020 15:06
--- NOTE | 2020-03-25 15:19 | Cardiac Electrophysiology PN ---
Assessment/Plan Assessment/Plan 1. MRSA bacteremia. Most recent blood culture from March 13, 2020 showed no growth. Echocardiogram showed ejection fraction of 60-65% with no clear vegetation. DEBBIE cancelled as family refused. On iv Abx. Indium scan pending 2. VDRF , status post tracheostomy.On 40% Fio2 3. Dysphagia, status post PEG placement. 4. History of intracranial hemorrhage. 5. COPD. 6. Diabetes. 7. Glaucoma. 8. Sacral decubitus stage IV. 9. Hypertension, on Cardizem 10. Transient SVT. On Cardizem 30 tid DW RN Subjective Subjective Off pressors on the Vent in sinus tach Fio2 35% and PEEP 5. Family refused DEBBIE. Had episodes of SVT lasting less than 20 seconds yesterday. Has fever and sinus tach Indium scan pending tomorrow Objective Last 24 Hour Vital Signs Date Time Temp Pulse Resp B/P (MAP) Pulse Ox O2 Delivery O2 Flow Rate FiO2 03/25/20 13:06 109 127/70 03/25/20 13:00 109 127/70 (89) 03/25/20 12:00 35 03/25/20 12:00 113 03/25/20 12:00 Mechanical Ventilator 03/25/20 11:55 99.0 113 20 131/73 (92) 100 03/25/20 11:18 113 25 35 03/25/20 08:00 Mechanical Ventilator 03/25/20 08:00 105 03/25/20 08:00 98.7 107 20 110/78 (89) 100 03/25/20 08:00 35 03/25/20 07:08 107 27 35 03/25/20 05:29 104 122/75 03/25/20 04:00 97 03/25/20 04:00 99.5 104 20 122/75 (91) 100 03/25/20 04:00 Mechanical Ventilator 03/25/20 04:00 50 03/25/20 03:31 96 30 35 03/25/20 00:00 93 03/25/20 00:00 50 03/25/20 00:00 98.7 95 22 114/68 (83) 100 03/25/20 00:00 Mechanical Ventilator 03/24/20 22:52 102 24 35 03/24/20 22:37 105 120/73 03/24/20 21:23 99.1 03/24/20 20:00 115 03/24/20 20:00 Mechanical Ventilator 03/24/20 20:00 101.1 113 20 136/76 (96) 100 03/24/20 20:00 50 03/24/20 19:16 111 26 35 03/24/20 16:00 Mechanical Ventilator 03/24/20 16:00 50 03/24/20 16:00 97.9 103 20 127/70 (89) 100 03/24/20 15:37 103 03/24/20 15:21 102 25 35 Intake and Output 03/24/20 03/25/20 19:00 07:00 Intake Total 1080 ml 1220 ml Output Total 1100 ml 900 ml Balance -20 ml 320 ml Free Water 360 ml 150 ml IV Total 410 ml Tube Feeding 720 ml 660 ml Output Urine Total 1100 ml 900 ml # Bowel Movements 2 2 Laboratory Tests Test 03/24/20 16:38 03/24/20 23:35 03/25/20 05:15 03/25/20 08:35 POC Whole Blood Glucose 169 MG/DL (74-106) H 239 MG/DL (74-106) H 151 MG/DL (74-106) H White Blood Count 19.6 K/UL (4.8-10.8) H Red Blood Count 3.12 M/UL (4.20-5.40) L Hemoglobin 8.6 G/DL (12.0-16.0) L Hematocrit 25.7 % (37.0-47.0) L Mean Corpuscular Volume 82 FL (80-99) Mean Corpuscular Hemoglobin 27.5 PG (27.0-31.0) Mean Corpuscular Hemoglobin Concent 33.4 G/DL (32.0-36.0) Red Cell Distribution Width 18.7 % (11.6-14.8) H Platelet Count 598 K/UL (150-450) H Mean Platelet Volume 8.2 FL (6.5-10.1) Neutrophils (%) (Auto) % (45.0-75.0) Lymphocytes (%) (Auto) % (20.0-45.0) Monocytes (%) (Auto) % (1.0-10.0) Eosinophils (%) (Auto) % (0.0-3.0) Basophils (%) (Auto) % (0.0-2.0) Differential Total Cells Counted 100 Neutrophils % (Manual) 85 % (45-75) H Lymphocytes % (Manual) 6 % (20-45) L Monocytes % (Manual) 6 % (1-10) Eosinophils % (Manual) 3 % (0-3) Basophils % (Manual) 0 % (0-2) Band Neutrophils 0 % (0-8) Platelet Estimate Increased H Platelet Morphology Normal Anisocytosis 1+ Microcytosis 1+ Macrocytosis Erythrocyte Sedimentation Rate 125 MM/HR (0-30) H Sodium Level 144 MMOL/L (136-145) Potassium Level 4.3 MMOL/L (3.5-5.1) Chloride Level 109 MMOL/L (98-107) H Carbon Dioxide Level 28 MMOL/L (21-32) Anion Gap 7 mmol/L (5-15) Blood Urea Nitrogen 18 mg/dL (7-18) Creatinine 0.8 MG/DL (0.55-1.30) Estimat Glomerular Filtration Rate > 60 mL/min (>60) Glucose Level 170 MG/DL (74-106) H Calcium Level 8.8 MG/DL (8.5-10.1) Phosphorus Level 3.4 MG/DL (2.5-4.9) Magnesium Level 2.1 MG/DL (1.8-2.4) Total Bilirubin 0.2 MG/DL (0.2-1.0) Aspartate Amino Transf (AST/SGOT) 18 U/L (15-37) Alanine Aminotransferase (ALT/SGPT) 21 U/L (12-78) Alkaline Phosphatase 86 U/L (46-116) C-Reactive Protein, Quantitative 19.2 mg/dL (0.00-0.90) H Total Protein 7.2 G/DL (6.4-8.2) Albumin 1.3 G/DL (3.4-5.0) L Globulin 5.9 g/dL Albumin/Globulin Ratio 0.2 (1.0-2.7) L Test 03/25/20 12:06 POC Whole Blood Glucose 217 MG/DL (74-106) H Objective HEAD AND NECK: No JVD. LUNGS: Coarse rhonchi. Status post tracheostomy. CARDIOVASCULAR: Regular S1 and S2 with no gallop or rub. Status post PEG. EXTREMITIES: 1+ pitting edema with sacral decubitus. Shay Alejandre MD Mar 25, 2020 15:18
--- NOTE | 2020-03-25 15:36 | Nephrology Progress Note ---
Assessment/Plan Problem List: (1) Hypercalcemia (2) Hypernatremia (3) Sepsis (4) UTI (urinary tract infection) (5) Stage 4 decubitus ulcer (6) Acute on chronic respiratory failure (7) Chronic vegetative state (8) Severe protein-calorie malnutrition Assessment Azotemia and hypernatremia indicative of severe dehydration and free water deficit Acute on chronic respiratory failure, on mechanical ventilation Severe underlying anemia Sepsis Stage IV decubitus Idiopathic obstructive hydrocephalus, history of intracranial hemorrhage Diabetes mellitus Parkinson's disease, dementia Protein calorie malnutrition Plan March 25: Labs reviewed. Renal parameters stable. Continue per consultants. March 24: Labs reviewed. Renal parameters stable. Continue per consultants. March 23: Labs reviewed. Renal parameters are stable. Continue per consultants. March 22: Labs reviewed. Serum sodium 151. D5W IV given. Continue per consultants. March 21: Labs reviewed. Renal parameters stable. Continue per consultants. March 20: Labs reviewed. Serum sodium lower 147. Serum calcium stable. Continue as is. March 19: Labs reviewed. Serum sodium unchanged at 150. Another liter of D 5W ordered. Serum calcium stable. Continue as is. March 18: Labs reviewed. Serum sodium 150. 1 L of D5W IV ordered. Serum calcium stable. Continue as is. March 17: Labs reviewed. Renal parameters stable. Continue to watch serum calcium. Continue per consultants. March 16: Labs reviewed. Serum calcium stable. Medication list reviewed. Abnormal electrolyte addressed. Continue current management. March 15: Labs reviewed. Serum calcium lowering. Abnormal electrolytes addressed. Continue per consultants. March 14: Labs reviewed. Status quo. Serum calcium lowering. Magnesium and potassium supplement ordered. Continue per current treatment plan. March 13: 1 dose of pamidronate 60 mg for high calcium IV ordered. Labs reviewed. Medication list reviewed. Electrolytes improving. Hemoglobin higher after transfusion. Nasal calcitonin initiated March 12: D5W at 75 cc an hour Monitor electrolytes Monitor hemoglobin hematocrit Gastric support Consider transfusion Continue per orders Parameters for blood pressure medication Antibiotics per ID Subjective ROS Limited/Unobtainable: Yes Objective Objective Last 24 Hour Vital Signs Date Time Temp Pulse Resp B/P (MAP) Pulse Ox O2 Delivery O2 Flow Rate FiO2 03/25/20 15:19 102 22 35 03/25/20 13:06 109 127/70 03/25/20 13:00 109 127/70 (89) 03/25/20 12:00 35 03/25/20 12:00 113 03/25/20 12:00 Mechanical Ventilator 03/25/20 11:55 99.0 113 20 131/73 (92) 100 03/25/20 11:18 113 25 35 03/25/20 08:00 Mechanical Ventilator 03/25/20 08:00 105 03/25/20 08:00 98.7 107 20 110/78 (89) 100 03/25/20 08:00 35 03/25/20 07:08 107 27 35 03/25/20 05:29 104 122/75 03/25/20 04:00 97 03/25/20 04:00 99.5 104 20 122/75 (91) 100 03/25/20 04:00 Mechanical Ventilator 03/25/20 04:00 50 03/25/20 03:31 96 30 35 03/25/20 00:00 93 03/25/20 00:00 50 03/25/20 00:00 98.7 95 22 114/68 (83) 100 03/25/20 00:00 Mechanical Ventilator 03/24/20 22:52 102 24 35 03/24/20 22:37 105 120/73 03/24/20 21:23 99.1 03/24/20 20:00 115 03/24/20 20:00 Mechanical Ventilator 03/24/20 20:00 101.1 113 20 136/76 (96) 100 03/24/20 20:00 50 03/24/20 19:16 111 26 35 03/24/20 16:00 Mechanical Ventilator 03/24/20 16:00 50 03/24/20 16:00 97.9 103 20 127/70 (89) 100 03/24/20 15:37 103 Intake and Output 03/24/20 03/25/20 19:00 07:00 Intake Total 1080 ml 1220 ml Output Total 1100 ml 900 ml Balance -20 ml 320 ml Free Water 360 ml 150 ml IV Total 410 ml Tube Feeding 720 ml 660 ml Output Urine Total 1100 ml 900 ml # Bowel Movements 2 2 Current Medications Medications (Trade) Dose Ordered Sig/Zaki Route PRN Reason Start Time Stop Time Status Last Admin Dose Admin Acetaminophen (Tylenol) 650 mg Q6H PRN GT Temp >100.5, Mild Pain 03/11/20 06:30 04/10/20 06:29 03/24/20 20:53 Aspirin (ASA) 81 mg DAILY GT 03/11/20 09:00 04/25/20 08:59 03/18/20 08:35 Calcitonin [place] (Miacalcin) 1 sprays DAILY NASAL 03/13/20 11:00 06/11/20 10:59 03/25/20 08:32 Dextrose (Dextrose 50%) 25 ml Q30M PRN IV Hypoglycemia 03/13/20 23:30 06/11/20 23:29 Dextrose (Dextrose 50%) 50 ml Q30M PRN IV Hypoglycemia 03/13/20 23:30 06/11/20 23:29 Diltiazem HCl (Cardizem Tab) 30 mg EVERY 8 HOURS GT 03/24/20 14:00 04/23/20 13:59 03/25/20 13:06 Diphenhydramine HCl (Benadryl) 25 mg Q8H PRN ORAL Itching 03/14/20 15:00 04/13/20 14:59 03/14/20 15:50 Famotidine (Pepcid) 20 mg BID GT 03/18/20 18:00 06/09/20 08:59 03/25/20 08:31 Insulin Aspart (NovoLOG) Q6HR SUBQ 03/14/20 00:00 06/12/20 00:00 03/25/20 12:25 Levofloxacin 150 ml @ 150 mls/hr Q48H IVPB 03/22/20 09:00 03/29/20 08:59 03/24/20 09:18 Linezolid 300 ml @ 300 mls/hr Q12HR IVPB 03/22/20 13:00 03/29/20 12:59 03/25/20 08:31 Ondansetron HCl (Zofran) 4 mg Q4H PRN IVP Nausea & Vomiting 03/11/20 06:30 04/10/20 06:29 Piperacillin Sod/ Tazobactam Sod 3.375 gm/Sodium Chloride 110 ml @ 27.5 mls/hr EVERY 8 HOURS IVPB 03/17/20 22:00 03/31/20 21:59 03/25/20 13:12 Laboratory Tests 03/24/20 16:38: POC Whole Blood Glucose 169H 03/24/20 23:35: POC Whole Blood Glucose 239H 03/25/20 05:15: POC Whole Blood Glucose 151H 03/25/20 08:35: White Blood Count 19.6H, Red Blood Count 3.12L, Hemoglobin 8.6L, Hematocrit 25.7L, Mean Corpuscular Volume 82, Mean Corpuscular Hemoglobin 27.5, Mean Corpuscular Hemoglobin Concent 33.4, Red Cell Distribution Width 18.7H, Platelet Count 598H, Mean Platelet Volume 8.2, Neutrophils (%) (Auto) , Lymphocytes (%) (Auto) , Monocytes (%) (Auto) , Eosinophils (%) (Auto) , Basophils (%) (Auto) , Differential Total Cells Counted 100, Neutrophils % (Manual) 85H, Lymphocytes % (Manual) 6L, Monocytes % (Manual) 6, Eosinophils % (Manual) 3, Basophils % (Manual) 0, Band Neutrophils 0, Platelet Estimate IncreasedH, Platelet Morphology Normal, Anisocytosis 1+, Microcytosis 1+, Macrocytosis , Erythrocyte Sedimentation Rate 125H, Sodium Level 144, Potassium Level 4.3, Chloride Level 109H, Carbon Dioxide Level 28, Anion Gap 7, Blood Urea Nitrogen 18, Creatinine 0.8, Estimat Glomerular Filtration Rate > 60, Glucose Level 170H, Calcium Level 8.8, Phosphorus Level 3.4, Magnesium Level 2.1, Total Bilirubin 0.2, Aspartate Amino Transf (AST/SGOT) 18, Alanine Aminotransferase (ALT/SGPT) 21, Alkaline Phosphatase 86, C-Reactive Protein, Quantitative 19.2H, Total Protein 7.2, Albumin 1.3L, Globulin 5.9, Albumin/Globulin Ratio 0.2L 03/25/20 12:06: POC Whole Blood Glucose 217H Height (Feet): 5 Height (Inches): 5.00 Weight (Pounds): 147 General Appearance: no apparent distress EENT: other - Trach to vent Cardiovascular: tachycardia Respiratory/Chest: decreased breath sounds Abdomen: distended Mathew Huntley MD Mar 25, 2020 15:36
--- NOTE | 2020-03-25 18:38 | Pulmonolgy Critical Care Note ---
Critical Care - Asmt/Plan Problems: (1) Persistent fever (2) Acute on chronic respiratory failure (3) Staphylococcus aureus bacteremia (4) Sepsis (5) Chronic respiratory failure requiring continuous mechanical ventilation through tracheostomy (6) Stage 4 decubitus ulcer (7) Diabetes mellitus (8) Parkinson's disease dementia (9) Gout (10) Idiopathic obstructive hydrocephalus (11) Severe protein-calorie malnutrition (12) History of intracranial hemorrhage (13) Chronic vegetative state Respiratory: monitor respiratory rate, adjust FIO2, CXR Cardiac: continue to monitor HR/BP Renal: F/U I&O, keep IV fluid, check electrolytes Infectious Disease: check cultures, continue antibiotics Gastrointestinal: continue feedings/current rate Endocrine: monitor blood sugar, continue sliding scale insulin Hematologic: transfuse if hgb<8.5 Neurologic: keep patient comfortable Affect: PRN ativan Prophylaxis: Protonix Time Spent (Minutes): 40 Notes Reviewed: rn bone marrow transplant, cardio, renal Discussed with: nurses, consultants Critical Care - Objective Last 24 Hour Vital Signs Date Time Temp Pulse Resp B/P (MAP) Pulse Ox O2 Delivery O2 Flow Rate FiO2 03/25/20 16:00 99 03/25/20 16:00 Mechanical Ventilator 03/25/20 16:00 97.5 101 20 108/62 (77) 100 03/25/20 15:19 102 22 35 03/25/20 13:06 109 127/70 03/25/20 13:00 109 127/70 (89) 03/25/20 12:00 35 03/25/20 12:00 113 03/25/20 12:00 Mechanical Ventilator 03/25/20 11:55 99.0 113 20 131/73 (92) 100 03/25/20 11:18 113 25 35 03/25/20 08:00 Mechanical Ventilator 03/25/20 08:00 105 03/25/20 08:00 98.7 107 20 110/78 (89) 100 03/25/20 08:00 35 03/25/20 07:08 107 27 35 03/25/20 05:29 104 122/75 03/25/20 04:00 97 03/25/20 04:00 99.5 104 20 122/75 (91) 100 03/25/20 04:00 Mechanical Ventilator 03/25/20 04:00 50 03/25/20 03:31 96 30 35 03/25/20 00:00 93 03/25/20 00:00 50 03/25/20 00:00 98.7 95 22 114/68 (83) 100 03/25/20 00:00 Mechanical Ventilator 03/24/20 22:52 102 24 35 03/24/20 22:37 105 120/73 03/24/20 21:23 99.1 03/24/20 20:00 115 03/24/20 20:00 Mechanical Ventilator 03/24/20 20:00 101.1 113 20 136/76 (96) 100 03/24/20 20:00 50 03/24/20 19:16 111 26 35 Status: somnolent Condition: critical HEENT: atraumatic Neck: full ROM Lungs: rales, rhonchi Heart: HR/BP stable Abdomen: soft, non-tender Extremities: no C/C/E Accucheck: 178 Critical Care - Subjective ROS Limited/Unobtainable: Yes Condition: critical EKG Rhythm: Sinus Rhythm FI02: 35 Vent Support Breath Rate: 16 Vent Support Mode: AC Vent Tidal Volume: 400 Sputum Amount: Moderate PEEP: 5.0 PIP: 19 Tube Feeding Amount: 60 I&O: Intake and Output 03/24/20 03/25/20 19:00 07:00 Intake Total 1080 ml 1280 ml Output Total 1100 ml 900 ml Balance -20 ml 380 ml Free Water 360 ml 150 ml IV Total 410 ml Tube Feeding 720 ml 720 ml Output Urine Total 1100 ml 900 ml # Bowel Movements 2 2 CXR: 1. Decreased left pleural effusion. Patchy opacity in the left lower lung may represent atelectasis versus pneumonia. 2. Asymmetric lucency in the right lung may be secondary to artifact from patient rotation. Labs: Laboratory Tests Test 03/24/20 23:35 03/25/20 05:15 03/25/20 08:35 03/25/20 12:06 POC Whole Blood Glucose 239 MG/DL (74-106) H 151 MG/DL (74-106) H 217 MG/DL (74-106) H White Blood Count 19.6 K/UL (4.8-10.8) H Red Blood Count 3.12 M/UL (4.20-5.40) L Hemoglobin 8.6 G/DL (12.0-16.0) L Hematocrit 25.7 % (37.0-47.0) L Mean Corpuscular Volume 82 FL (80-99) Mean Corpuscular Hemoglobin 27.5 PG (27.0-31.0) Mean Corpuscular Hemoglobin Concent 33.4 G/DL (32.0-36.0) Red Cell Distribution Width 18.7 % (11.6-14.8) H Platelet Count 598 K/UL (150-450) H Mean Platelet Volume 8.2 FL (6.5-10.1) Neutrophils (%) (Auto) % (45.0-75.0) Lymphocytes (%) (Auto) % (20.0-45.0) Monocytes (%) (Auto) % (1.0-10.0) Eosinophils (%) (Auto) % (0.0-3.0) Basophils (%) (Auto) % (0.0-2.0) Differential Total Cells Counted 100 Neutrophils % (Manual) 85 % (45-75) H Lymphocytes % (Manual) 6 % (20-45) L Monocytes % (Manual) 6 % (1-10) Eosinophils % (Manual) 3 % (0-3) Basophils % (Manual) 0 % (0-2) Band Neutrophils 0 % (0-8) Platelet Estimate Increased H Platelet Morphology Normal Anisocytosis 1+ Microcytosis 1+ Macrocytosis Erythrocyte Sedimentation Rate 125 MM/HR (0-30) H Sodium Level 144 MMOL/L (136-145) Potassium Level 4.3 MMOL/L (3.5-5.1) Chloride Level 109 MMOL/L (98-107) H Carbon Dioxide Level 28 MMOL/L (21-32) Anion Gap 7 mmol/L (5-15) Blood Urea Nitrogen 18 mg/dL (7-18) Creatinine 0.8 MG/DL (0.55-1.30) Estimat Glomerular Filtration Rate > 60 mL/min (>60) Glucose Level 170 MG/DL (74-106) H Calcium Level 8.8 MG/DL (8.5-10.1) Phosphorus Level 3.4 MG/DL (2.5-4.9) Magnesium Level 2.1 MG/DL (1.8-2.4) Total Bilirubin 0.2 MG/DL (0.2-1.0) Aspartate Amino Transf (AST/SGOT) 18 U/L (15-37) Alanine Aminotransferase (ALT/SGPT) 21 U/L (12-78) Alkaline Phosphatase 86 U/L (46-116) C-Reactive Protein, Quantitative 19.2 mg/dL (0.00-0.90) H Total Protein 7.2 G/DL (6.4-8.2) Albumin 1.3 G/DL (3.4-5.0) L Globulin 5.9 g/dL Albumin/Globulin Ratio 0.2 (1.0-2.7) L Test 03/25/20 17:04 POC Whole Blood Glucose 178 MG/DL (74-106) H Patti Matta MD Mar 25, 2020 18:38
--- NOTE | 2020-03-25 19:09 | NUR ---
NURSE HAND-OFF REPORT: Important Events on Shift: Patient Status: Stable Diet: Glucerna 1.2 60 ml/hr Pending Orders: None Pending Results/Labs:None Pending MD notification:None Latest Vital Signs: Temperature 97.5 , Pulse 99 , B/P 108 /62 , Respiratory Rate 20 , O2 SAT 100 , Mechanical Ventilator, O2 Flow Rate . Vital Sign Comment: Stable EKG Rhythm: Sinus Rhythm Rhythm change?: N MD Notified?: Zacarias Alejandre MD Response: Latest Ochoa Fall Score: 50 Fall Risk: High Risk Safety Measures: Call light Within Reach, Bed Alarm Zone 1, Side Rails Side Rails x3, Bed position Low and Locked. Fall Precautions: Yellow Socks Yellow Gown Door Sign Patient Fall Education Report given to ADILENE Perez.
--- NOTE | 2020-03-25 19:15 | NUR ---
NURSE NOTES: Received report from Saran Rn, Pt in bed, asleep, non verbal, no signs or symptoms of acute cardiac or respiratory distress noted. On vent -trach with prescribed setting. Appears to be saturating @ 99%. With G tube running Glucerna 1.2 at 60cc/hr - no residual noted. Febrile with temperature of 100F. Collier catheter intact and draining to gravity with color yellow urine , repositioned and turned pt.IV access on R wrist #20g IV intact, patent and flushed well, TKO. Aspiration precautions observed- HOB elevated, skin precautions observed, will continue to monitor pt. Bed alarm on, side rails up x's 3 and safety brakes engaged, call light within easy reach.
--- NOTE | 2020-03-25 21:53 | General Progress Note ---
Subjective Allergies: Coded Allergies: No Known Allergies (Unverified , 03/11/20) Subjective above noted fever noted tolerating TF Objective Last 24 Hour Vital Signs Date Time Temp Pulse Resp B/P (MAP) Pulse Ox O2 Delivery O2 Flow Rate FiO2 03/25/20 20:24 Mechanical Ventilator 03/25/20 20:00 35 03/25/20 20:00 100.0 100 20 115/66 (82) 100 03/25/20 19:31 101 03/25/20 19:24 97 03/25/20 19:12 106 32 35 03/25/20 16:00 99 03/25/20 16:00 Mechanical Ventilator 03/25/20 16:00 97.5 101 20 108/62 (77) 100 03/25/20 15:19 102 22 35 03/25/20 13:06 109 127/70 03/25/20 13:00 109 127/70 (89) 03/25/20 12:00 35 03/25/20 12:00 113 03/25/20 12:00 Mechanical Ventilator 03/25/20 11:55 99.0 113 20 131/73 (92) 100 03/25/20 11:18 113 25 35 03/25/20 08:00 Mechanical Ventilator 03/25/20 08:00 105 03/25/20 08:00 98.7 107 20 110/78 (89) 100 03/25/20 08:00 35 03/25/20 07:08 107 27 35 03/25/20 05:29 104 122/75 03/25/20 04:00 97 03/25/20 04:00 99.5 104 20 122/75 (91) 100 03/25/20 04:00 Mechanical Ventilator 03/25/20 04:00 50 03/25/20 03:31 96 30 35 03/25/20 00:00 93 03/25/20 00:00 50 03/25/20 00:00 98.7 95 22 114/68 (83) 100 03/25/20 00:00 Mechanical Ventilator 03/24/20 22:52 102 24 35 03/24/20 22:37 105 120/73 Intake and Output 03/24/20 03/25/20 19:00 07:00 Intake Total 1080 ml 1280 ml Output Total 1100 ml 900 ml Balance -20 ml 380 ml Free Water 360 ml 150 ml IV Total 410 ml Tube Feeding 720 ml 720 ml Output Urine Total 1100 ml 900 ml # Bowel Movements 2 2 Laboratory Tests 03/24/20 23:35: POC Whole Blood Glucose 239H 03/25/20 05:15: POC Whole Blood Glucose 151H 03/25/20 08:35: White Blood Count 19.6H, Red Blood Count 3.12L, Hemoglobin 8.6L, Hematocrit 25.7L, Mean Corpuscular Volume 82, Mean Corpuscular Hemoglobin 27.5, Mean Corpuscular Hemoglobin Concent 33.4, Red Cell Distribution Width 18.7H, Platelet Count 598H, Mean Platelet Volume 8.2, Neutrophils (%) (Auto) , Lymphocytes (%) (Auto) , Monocytes (%) (Auto) , Eosinophils (%) (Auto) , Basophils (%) (Auto) , Differential Total Cells Counted 100, Neutrophils % (Manual) 85H, Lymphocytes % (Manual) 6L, Monocytes % (Manual) 6, Eosinophils % (Manual) 3, Basophils % (Manual) 0, Band Neutrophils 0, Platelet Estimate IncreasedH, Platelet Morphology Normal, Anisocytosis 1+, Microcytosis 1+, Macrocytosis , Erythrocyte Sedimentation Rate 125H, Sodium Level 144, Potassium Level 4.3, Chloride Level 109H, Carbon Dioxide Level 28, Anion Gap 7, Blood Urea Nitrogen 18, Creatinine 0.8, Estimat Glomerular Filtration Rate > 60, Glucose Level 170H, Calcium Level 8.8, Phosphorus Level 3.4, Magnesium Level 2.1, Total Bilirubin 0.2, Aspartate Amino Transf (AST/SGOT) 18, Alanine Aminotransferase (ALT/SGPT) 21, Alkaline Phosphatase 86, C-Reactive Protein, Quantitative 19.2H, Total Protein 7.2, Albumin 1.3L, Globulin 5.9, Albumin/Globulin Ratio 0.2L 03/25/20 12:06: POC Whole Blood Glucose 217H 03/25/20 17:04: POC Whole Blood Glucose 178H Height (Feet): 5 Height (Inches): 5.00 Weight (Pounds): 147 Objective elderly woman NCAT supple, trach CTA RR abd soft, (+)GT no edema Assessment/Plan Assessment/Plan: Assessment History of intracranial hemorrhage, s/p gastrostomy, OB (+) stools status post tracheostomy, chronic obstructive pulmonary disease, type 2 diabetes, Parkinson's, gout, glaucoma, history of stage IV sacral decubitus ulceration, gout Fever Recommendations - continue TF - GT care - elevate HOB - Monitor H&H - no GI w/u per family decision Deanne Rivera MD Mar 25, 2020 21:53
--- NOTE | 2020-03-25 22:35 | NUR ---
NURSE NOTES: Cardizem Tab held due to decrease bp 100/71 hr 97. business solution analyst made aware
--- NOTE | 2020-03-26 02:00 | NUR ---
NURSE NOTES: Pt comfortably sleeping, in no apparent cardiac and respiratory distress noted. Oral care provided, turned and repositioned. Will continue to monitor.
[2020-03-26 04:00] VITALS: BP 134/68
[2020-03-26] MEDS: NovoLOG Insulin Flexpen SUBQ SCH ×3 (05:26→18:00)
[2020-03-26] MEDS: Piperacillin/Tazobactam 3.375 GM in NS 110 ML IVPB SCH ×3 (05:27→21:15)
[2020-03-26] MEDS: dilTIAZem HCl 30mg tab GT SCH ×3 (05:36→21:14)
--- NOTE | 2020-03-26 06:39 | NUR ---
NURSE NOTES: Oral care provided, turned and repositioned. Kept cleaned and dry. All needs met. Will endorsed to am shift.
--- NOTE | 2020-03-26 07:30 | NUR ---
NURSE NOTES: Received report from ADILENE Phillip. Pt is lying in bed, obtunded but communicates by facial expression, not in distress. Vitals are stable. Tolerating vent setting of AC 16, TV 400, FiO2 35%, PEEP 5 saturating 100%. Peripheral IV in R wrist 22G is intact and patent. Gtube is intact and patent running Glucerna 1.2 @ 60cc/hr. Collier cath is intact and patent draining yellowish urine. Bed is locked and in lowest position, bed alarm on, call light is with the pt, head of bed is elevated at all times. Will continue to monitor pt. Will continue with the plan of care.
--- NOTE | 2020-03-26 07:50 | NUR ---
NURSE NOTES: Pt had bowel movement. Cleaned and reposition. Tolerated well. vital signs remain stable. Will continue to monitor pt.
[2020-03-26 07:51] LABS: HEMATOCRIT 23.2 % (37.0-47.0); HEMOGLOBIN 7.9 G/DL (12.0-16.0); MEAN CORPUSCULAR VOLUME 81 FL (80-99); PLATELET COUNT 558 K/UL (150-450); RED BLOOD COUNT 2.86 M/UL (4.20-5.40); RED CELL DISTRIBUTION WIDTH 19.3 % (11.6-14.8); WHITE BLOOD COUNT 18.5 K/UL (4.8-10.8)
--- NOTE | 2020-03-26 07:51 | NUR ---
NURSE HAND-OFF REPORT: Important Events on Shift: Stable Patient Status: Stable Diet: Glucerna 1.2 Pending Orders: Pending Results/Labs: Pending MD notification: Latest Vital Signs: Temperature 99.7 , Pulse 103 , B/P 103 /67 , Respiratory Rate 20 , O2 SAT 99 , Mechanical Ventilator, O2 Flow Rate . Vital Sign Comment: Stable EKG Rhythm: Sinus Tachycardia Rhythm change?: N MD Notified?: MD Response: Latest Ochoa Fall Score: 50 Fall Risk: High Risk Safety Measures: Call light Within Reach, Bed Alarm Zone 1, Side Rails Side Rails x3, Bed position Low and Locked. Fall Precautions: Yellow Socks Yellow Gown Door Sign Patient Fall Education Report given to ADILENE Farias.
[2020-03-26 08:00] VITALS: BP 117/68
[2020-03-26 08:03] LABS: ALANINE AMINOTRANSFERASE 18 U/L (12-78); ALBUMIN 1.3 G/DL (3.4-5.0); ALBUMIN/GLOBULIN RATIO 0.2 (1.0-2.7); ALKALINE PHOSPHATASE 82 U/L (46-116); ANION GAP 4 mmol/L (5-15); ASPARTATE AMINO TRANSFERASE 17 U/L (15-37); BILIRUBIN,TOTAL 0.3 MG/DL (0.2-1.0); BLOOD UREA NITROGEN 17 mg/dL (7-18); CALCIUM 8.8 MG/DL (8.5-10.1); CARBON DIOXIDE 29 MMOL/L (21-32); CHLORIDE 107 MMOL/L (98-107); POTASSIUM 4.3 MMOL/L (3.5-5.1); SODIUM 140 MMOL/L (136-145)
--- NOTE | 2020-03-26 08:05 | NUR ---
RD ASSESSMENT & RECOMMENDATIONS SEE CARE ACTIVITY FOR COMPLETE ASSESSMENT DAILY ESTIMATED NEEDS: Needs based on Advanced wound, critical care, underweight, RFID DEVELOPER TF/ 45.5kg 30-40 kcals/kg 1235-1534 total kcals 1.5-2 g protein/kg 68-91 g total protein 30-40 mL/kg 6172-6080 total fluid mLs NUTRITION DIAGNOSIS: Increased kcal/prot needs R/T underweight status, wound healing as evidenced by pt @83% IBW w/ underweight BMI of 17.2, admitted w/ multiple wounds, including stage 4 sacral wound. CURRENT TF:Glucerna 1.2 @ 60ml/hr x 24 hrs ENTERAL NUTRITION RECOMMENDATIONS: Glucerna 1.2 @ 60ml/hr x 24 hrs to provide 1440ml, 1728kcal, 86g prot, 1159ml free water * Maintain current TF rate as tolerated to meet 100% est kcal/prot needs -> 1.9g prot/kg. * HOB over 30 degrees/ water flush per MD * add Shen BID ADDITIONAL RECOMMENDATIONS: * Per SNF: HT=64" and PA=879# vs EMR wt of 147lbs -> Recalibrate bed scale for accurate CBW * Wound healing: TF rec @ goal will provide 100% RDI add Vit C 500mg BID, continue ZnSO4 220gm QD x 10 days Shen BID via PEG * Monitor BGs, consider NISS: h/o DM -> NISS now added * Increase water flushes for elevated Na
[2020-03-26] MEDS: Aspirin Baby 81mg GT SCH (09:00)
--- NOTE | 2020-03-26 10:00 | NUR ---
NURSE NOTES: Initial assessment done. Morning medications given. Pt tolerated well, not in distress. Tolerating vent setting with O2 saturation 99%. Will continue to monitor pt.
[2020-03-26 12:00] VITALS: BP 106/66
--- NOTE | 2020-03-26 12:30 | NUR ---
NURSE NOTES: Pt has fever of 100.0. Given sponge bath and cold compress. Will continue to monitor pt.
--- NOTE | 2020-03-26 13:20 | General Progress Note ---
Subjective Allergies: Coded Allergies: No Known Allergies (Unverified , 03/11/20) Subjective above noted fever noted tolerating TF Objective Last 24 Hour Vital Signs Date Time Temp Pulse Resp B/P (MAP) Pulse Ox O2 Delivery O2 Flow Rate FiO2 03/26/20 12:00 113 03/26/20 12:00 35 03/26/20 12:00 Mechanical Ventilator 03/26/20 12:00 100.0 112 20 106/66 (79) 100 03/26/20 10:50 111 20 35 03/26/20 08:00 Mechanical Ventilator 03/26/20 08:00 35 03/26/20 08:00 110 03/26/20 08:00 99.1 107 20 117/68 (84) 100 03/26/20 07:16 110 22 35 03/26/20 05:36 103 103/67 03/26/20 04:00 99.7 104 20 134/68 (90) 99 03/26/20 04:00 102 03/26/20 04:00 35 03/26/20 04:00 Mechanical Ventilator 03/26/20 03:26 104 24 35 03/26/20 00:00 100 03/26/20 00:00 Mechanical Ventilator 03/25/20 23:44 98.2 99 24 113/67 (82) 100 03/25/20 22:36 100 28 35 03/25/20 22:00 97 100/71 03/25/20 20:24 Mechanical Ventilator 03/25/20 20:00 35 03/25/20 20:00 100.0 100 20 115/66 (82) 100 03/25/20 19:31 101 03/25/20 19:24 97 03/25/20 19:12 106 32 35 03/25/20 16:00 99 03/25/20 16:00 Mechanical Ventilator 03/25/20 16:00 97.5 101 20 108/62 (77) 100 03/25/20 15:19 102 22 35 Intake and Output 03/25/20 03/26/20 19:00 07:00 Intake Total 1260 ml 1370 ml Output Total 800 ml 1000 ml Balance 460 ml 370 ml Free Water 300 ml 300 ml IV Total 300 ml 410 ml Tube Feeding 660 ml 660 ml Output Urine Total 800 ml 1000 ml # Bowel Movements 1 1 Laboratory Tests 03/25/20 17:04: POC Whole Blood Glucose 178H 03/25/20 23:24: POC Whole Blood Glucose 227H 03/26/20 05:26: POC Whole Blood Glucose 131H 03/26/20 07:30: White Blood Count 18.5H, Red Blood Count 2.86L, Hemoglobin 7.9L, Hematocrit 23.2L, Mean Corpuscular Volume 81, Mean Corpuscular Hemoglobin 27.6, Mean Corpuscular Hemoglobin Concent 34.1, Red Cell Distribution Width 19.3H, Platelet Count 558H, Mean Platelet Volume 7.6, Neutrophils (%) (Auto) , Lymphocytes (%) (Auto) , Monocytes (%) (Auto) , Eosinophils (%) (Auto) , Basophils (%) (Auto) , Differential Total Cells Counted 100, Neutrophils % (Manual) 76H, Lymphocytes % (Manual) 14L, Monocytes % (Manual) 2, Eosinophils % (Manual) 5H, Basophils % (Manual) 1, Metamyelocytes % 1H, Band Neutrophils 1, Platelet Estimate Increased H, Platelet Morphology Normal, Anisocytosis 2+, Microcytosis 2+, Sodium Level 140, Potassium Level 4.3, Chloride Level 107, Carbon Dioxide Level 29, Anion Gap 4L, Blood Urea Nitrogen 17, Creatinine 1.0, Estimat Glomerular Filtration Rate > 60, Glucose Level 132H, Calcium Level 8.8, Total Bilirubin 0.3, Aspartate Amino Transf (AST/SGOT) 17, Alanine Aminotransferase (ALT/SGPT) 18, Alkaline Phosphatase 82, Total Protein 7.2, Albumin 1.3L, Globulin 5.9, Albumin/Globulin Ratio 0.2L 03/26/20 12:39: POC Whole Blood Glucose 228H Height (Feet): 5 Height (Inches): 5.00 Weight (Pounds): 147 Objective elderly woman NCAT supple, trach CTA RR abd soft, (+)GT no edema Assessment/Plan Assessment/Plan: Assessment History of intracranial hemorrhage, s/p gastrostomy, OB (+) stools status post tracheostomy, chronic obstructive pulmonary disease, type 2 diabetes, Parkinson's, gout, glaucoma, history of stage IV sacral decubitus ulceration, gout Fever Low albumin - likely partly due to proteinuria Recommendations - continue TF - advance rate to 70 - GT care - elevate HOB - Monitor H&H - no GI w/u per family decision - 24 hour urine protein Deanne Rivera MD Mar 26, 2020 13:20
--- NOTE | 2020-03-26 13:31 | Nephrology Progress Note ---
Assessment/Plan Problem List: (1) Hypercalcemia (2) Hypernatremia (3) Sepsis (4) UTI (urinary tract infection) (5) Stage 4 decubitus ulcer (6) Acute on chronic respiratory failure (7) Chronic vegetative state (8) Severe protein-calorie malnutrition Assessment Azotemia and hypernatremia indicative of severe dehydration and free water deficit Acute on chronic respiratory failure, on mechanical ventilation Severe underlying anemia Sepsis Stage IV decubitus Idiopathic obstructive hydrocephalus, history of intracranial hemorrhage Diabetes mellitus Parkinson's disease, dementia Protein calorie malnutrition Plan March 26: Patient remains stable from renal standpoint of view. Labs and medication list reviewed. March 25: Labs reviewed. Renal parameters stable. Continue per consultants. March 24: Labs reviewed. Renal parameters stable. Continue per consultants. March 23: Labs reviewed. Renal parameters are stable. Continue per consultants. March 22: Labs reviewed. Serum sodium 151. D5W IV given. Continue per consultants. March 21: Labs reviewed. Renal parameters stable. Continue per consultants. March 20: Labs reviewed. Serum sodium lower 147. Serum calcium stable. Continue as is. March 19: Labs reviewed. Serum sodium unchanged at 150. Another liter of D5W ordered. Serum calcium stable. Continue as is. March 18: Labs reviewed. Serum sodium 150. 1 L of D5W IV ordered. Serum calcium stable. Continue as is. March 17: Labs reviewed. Renal parameters stable. Continue to watch serum calcium. Continue per consultants. March 16: Labs reviewed. Serum calcium stable. Medication list reviewed. Abnormal electrolyte addressed. Continue current management. March 15: Labs reviewed. Serum calcium lowering. Abnormal electrolytes addressed. Continue per consultants. March 14: Labs reviewed. Status quo. Serum calcium lowering. Magnesium and potassium supplement ordered. Continue per current treatment plan. March 13: 1 dose of pamidronate 60 mg for high calcium IV ordered. Labs reviewed. Medication list reviewed. Electrolytes improving. Hemoglobin higher after transfusion. Nasal calcitonin initiated March 12: D5W at 75 cc an hour Monitor electrolytes Monitor hemoglobin hematocrit Gastric support Consider transfusion Continue per orders Parameters for blood pressure medication Antibiotics per ID Subjective ROS Limited/Unobtainable: Yes Objective Objective Last 24 Hour Vital Signs Date Time Temp Pulse Resp B/P (MAP) Pulse Ox O2 Delivery O2 Flow Rate FiO2 03/26/20 12:00 113 03/26/20 12:00 35 03/26/20 12:00 Mechanical Ventilator 03/26/20 12:00 100.0 112 20 106/66 (79) 100 03/26/20 10:50 111 20 35 03/26/20 08:00 Mechanical Ventilator 03/26/20 08:00 35 03/26/20 08:00 110 03/26/20 08:00 99.1 107 20 117/68 (84) 100 03/26/20 07:16 110 22 35 03/26/20 05:36 103 103/67 03/26/20 04:00 99.7 104 20 134/68 (90) 99 03/26/20 04:00 102 03/26/20 04:00 35 03/26/20 04:00 Mechanical Ventilator 03/26/20 03:26 104 24 35 03/26/20 00:00 100 03/26/20 00:00 Mechanical Ventilator 03/25/20 23:44 98.2 99 24 113/67 (82) 100 03/25/20 22:36 100 28 35 03/25/20 22:00 97 100/71 03/25/20 20:24 Mechanical Ventilator 03/25/20 20:00 35 03/25/20 20:00 100.0 100 20 115/66 (82) 100 03/25/20 19:31 101 03/25/20 19:24 97 03/25/20 19:12 106 32 35 03/25/20 16:00 99 03/25/20 16:00 Mechanical Ventilator 03/25/20 16:00 97.5 101 20 108/62 (77) 100 03/25/20 15:19 102 22 35 Intake and Output 03/25/20 03/26/20 19:00 07:00 Intake Total 1260 ml 1370 ml Output Total 800 ml 1000 ml Balance 460 ml 370 ml Free Water 300 ml 300 ml IV Total 300 ml 410 ml Tube Feeding 660 ml 660 ml Output Urine Total 800 ml 1000 ml # Bowel Movements 1 1 Current Medications Medications (Trade) Dose Ordered Sig/Zaki Route PRN Reason Start Time Stop Time Status Last Admin Dose Admin Acetaminophen (Tylenol) 650 mg Q6H PRN GT Temp >100.5, Mild Pain 03/11/20 06:30 04/10/20 06:29 03/24/20 20:53 Aspirin (ASA) 81 mg DAILY GT 03/11/20 09:00 04/25/20 08:59 03/18/20 08:35 Calcitonin Odell (Miacalcin) 1 sprays DAILY NASAL 03/13/20 11:00 06/11/20 10:59 03/26/20 09:15 Dextrose (Dextrose 50%) 25 ml Q30M PRN IV Hypoglycemia 03/13/20 23:30 06/11/20 23:29 Dextrose (Dextrose 50%) 50 ml Q30M PRN IV Hypoglycemia 03/13/20 23:30 06/11/20 23:29 Diltiazem HCl (Cardizem Tab) 30 mg EVERY 8 HOURS GT 03/24/20 14:00 04/23/20 13:59 03/25/20 13:06 Diphenhydramine HCl (Benadryl) 25 mg Q8H PRN ORAL Itching 03/14/20 15:00 04/13/20 14:59 03/14/20 15:50 Famotidine (Pepcid) 20 mg BID GT 03/18/20 18:00 06/09/20 08:59 03/26/20 09:14 Insulin Aspart (NovoLOG) Q6HR SUBQ 03/14/20 00:00 06/12/20 00:00 03/26/20 12:43 Levofloxacin 150 ml @ 150 mls/hr Q48H IVPB 03/22/20 09:00 03/29/20 08:59 03/26/20 09:14 Linezolid 300 ml @ 300 mls/hr Q12HR IVPB 03/22/20 13:00 03/29/20 12:59 03/26/20 09:14 Ondansetron HCl (Zofran) 4 mg Q4H PRN IVP Nausea & Vomiting 03/11/20 06:30 04/10/20 06:29 Piperacillin Sod/ Tazobactam Sod 3.375 gm/Sodium Chloride 110 ml @ 27.5 mls/hr EVERY 8 HOURS IVPB 03/17/20 22:00 03/31/20 21:59 03/26/20 05:27 Laboratory Tests 03/25/20 17:04: POC Whole Blood Glucose 178H 03/25/20 23:24: POC Whole Blood Glucose 227H 03/26/20 05:26: POC Whole Blood Glucose 131H 03/26/20 07:30: White Blood Count 18.5H, Red Blood Count 2.86L, Hemoglobin 7.9L, Hematocrit 23.2L, Mean Corpuscular Volume 81, Mean Corpuscular Hemoglobin 27.6, Mean Co rpuscular Hemoglobin Concent 34.1, Red Cell Distribution Width 19.3H, Platelet Count 558H, Mean Platelet Volume 7.6, Neutrophils (%) (Auto) , Lymphocytes (%) (Auto) , Monocytes (%) (Auto) , Eosinophils (%) (Auto) , Basophils (%) (Auto) , Differential Total Cells Counted 100, Neutrophils % (Manual) 76H, Lymphocytes % (Manual) 14L, Monocytes % (Manual) 2, Eosinophils % (Manual) 5H, Basophils % (Manual) 1, Metamyelocytes % 1H, Band Neutrophils 1, Platelet Estimate IncreasedH, Platelet Morphology Normal, Anisocytosis 2+, Microcytosis 2+, Sodium Level 140, Potassium Level 4.3, Chloride Level 107, Carbon Dioxide Level 29, Anion Gap 4L, Blood Urea Nitrogen 17, Creatinine 1.0, Estimat Glomerular Filtration Rate > 60, Glucose Level 132H, Calcium Level 8.8, Total Bilirubin 0.3, Aspartate Amino Transf (AST/SGOT) 17, Alanine Aminotransferase (ALT/SGPT) 18, Alkaline Phosphatase 82, Total Protein 7.2, Albumin 1.3L, Globulin 5.9, Al bumin/Globulin Ratio 0.2L 03/26/20 12:39: POC Whole Blood Glucose 228H Height (Feet): 5 Height (Inches): 5.00 Weight (Pounds): 147 General Appearance: no apparent distress EENT: other - Trach to vent Cardiovascular: tachycardia Respiratory/Chest: decreased breath sounds Abdomen: distended Mathew Huntley MD Mar 26, 2020 13:31
--- NOTE | 2020-03-26 14:15 | NUR ---
NURSE NOTES: 24 hr Urine protein collection was started on 141. Will continue to monitor pt.
--- NOTE | 2020-03-26 14:43 | Surgery Progress Note ---
Surgery Progress Note Subjective Symptoms: other Objective Last 24 Hour Vital Signs Date Time Temp Pulse Resp B/P (MAP) Pulse Ox O2 Delivery O2 Flow Rate FiO2 03/26/20 13:43 101 125/73 03/26/20 12:00 113 03/26/20 12:00 35 03/26/20 12:00 Mechanical Ventilator 03/26/20 12:00 100.0 112 20 106/66 (79) 100 03/26/20 10:50 111 20 35 03/26/20 08:00 Mechanical Ventilator 03/26/20 08:00 35 03/26/20 08:00 110 03/26/20 08:00 99.1 107 20 117/68 (84) 100 03/26/20 07:16 110 22 35 03/26/20 05:36 103 103/67 03/26/20 04:00 99.7 104 20 134/68 (90) 99 03/26/20 04:00 102 03/26/20 04:00 35 03/26/20 04:00 Mechanical Ventilator 03/26/20 03:26 104 24 35 03/26/20 00:00 100 03/26/20 00:00 Mechanical Ventilator 03/25/20 23:44 98.2 99 24 113/67 (82) 100 03/25/20 22:36 100 28 35 03/25/20 22:00 97 100/71 03/25/20 20:24 Mechanical Ventilator 03/25/20 20:00 35 03/25/20 20:00 100.0 100 20 115/66 (82) 100 03/25/20 19:31 101 03/25/20 19:24 97 03/25/20 19:12 106 32 35 03/25/20 16:00 99 03/25/20 16:00 Mechanical Ventilator 03/25/20 16:00 97.5 101 20 108/62 (77) 100 03/25/20 15:19 102 22 35 I&O Intake and Output 03/25/20 03/26/20 19:00 07:00 Intake Total 1260 ml 1370 ml Output Total 800 ml 1000 ml Balance 460 ml 370 ml Free Water 300 ml 300 ml IV Total 300 ml 410 ml Tube Feeding 660 ml 660 ml Output Urine Total 800 ml 1000 ml # Bowel Movements 1 1 Dressing: saturated Cardiovascular: RSR Respiratory: decreased breath sounds Abdomen: non-tender, present bowel sounds Extremities: no tenderness, no cyanosis Laboratory Tests Test 03/25/20 17:04 03/25/20 23:24 03/26/20 05:26 03/26/20 07:30 POC Whole Blood Glucose 178 MG/DL (74-106) H 227 MG/DL (74-106) H 131 MG/DL (74-106) H White Blood Count 18.5 K/UL (4.8-10.8) H Red Blood Count 2.86 M/UL (4.20-5.40) L Hemoglobin 7.9 G/DL (12.0-16.0) L Hematocrit 23.2 % (37.0-47.0) L Mean Corpuscular Volume 81 FL (80-99) Mean Corpuscular Hemoglobin 27.6 PG (27.0-31.0) Mean Corpuscular Hemoglobin Concent 34.1 G/DL (32.0-36.0) Red Cell Distribution Width 19.3 % (11.6-14.8) H Platelet Count 558 K/UL (150-450) H Mean Platelet Volume 7.6 FL (6.5-10.1) Neutrophils (%) (Auto) % (45.0-75.0) Lymphocytes (%) (Auto) % (20.0-45.0) Monocytes (%) (Auto) % (1.0-10.0) Eosinophils (%) (Auto) % (0.0-3.0) Basophils (%) (Auto) % (0.0-2.0) Differential Total Cells Counted 100 Neutrophils % (Manual) 76 % (45-75) H Lymphocytes % (Manual) 14 % (20-45) L Monocytes % (Manual) 2 % (1-10) Eosinophils % (Manual) 5 % (0-3) H Basophils % (Manual) 1 % (0-2) Metamyelocytes % 1 % (0-0) H Band Neutrophils 1 % (0-8) Platelet Estimate Increased H Platelet Morphology Normal Anisocytosis 2+ Microcytosis 2+ Sodium Level 140 MMOL/L (136-145) Potassium Level 4.3 MMOL/L (3.5-5.1) Chloride Level 107 MMOL/L (98-107) Carbon Dioxide Level 29 MMOL/L (21-32) Anion Gap 4 mmol/L (5-15) L Blood Urea Nitrogen 17 mg/dL (7-18) Creatinine 1.0 MG/DL (0.55-1.30) Estimat Glomerular Filtration Rate > 60 mL/min (>60) Glucose Level 132 MG/DL (74-106) H Calcium Level 8.8 MG/DL (8.5-10.1) Total Bilirubin 0.3 MG/DL (0.2-1.0) Aspartate Amino Transf (AST/SGOT) 17 U/L (15-37) Alanine Aminotransferase (ALT/SGPT) 18 U/L (12-78) Alkaline Phosphatase 82 U/L (46-116) Total Protein 7.2 G/DL (6.4-8.2) Albumin 1.3 G/DL (3.4-5.0) L Globulin 5.9 g/dL Albumin/Globulin Ratio 0.2 (1.0-2.7) L Test 03/26/20 12:39 POC Whole Blood Glucose 228 MG/DL (74-106) H Plan Problems: (1) Hypernatremia (2) Sepsis (3) UTI (urinary tract infection) (4) Stage 4 decubitus ulcer Assessment & Plan: Stage 4 ulcer on admission. macerated edges. serous drainage. foul odor. no active infection Tx plan: wash with NS. apply therahoney gauze and dressing daily change prn saturation CT noted. osteo in sacrum cont abx osteo chronic will monitor and asses if debridement needed ABDOMEN: Liver: Unremarkable. No mass. Gallbladder and bile ducts: Unremarkable. No calcified stones. No ductal dilation. Pancreas: Unremarkable. No mass. No ductal dilation. Spleen: Spleen is small. Adrenals: Unremarkable. No mass. Kidneys and ureters: Renal cysts and subcentimeter low-attenuation foci, too small to characterize. No hydronephrosis. Stomach and bowel: Unremarkable. No obstruction. No mucosal thickening. PELVIS: Appendix: No findings to suggest acute appendicitis. Bladder: Bladder wall thickening. Foci of gas in the bladder. Correlate for recent instrumentation versus cystitis. Reproductive: Unremarkable as visualized. ABDOMEN and PELVIS: Intraperitoneal space: Unremarkable. No free air. No significant fluid collection. Bones/joints: Sacrococcygeal decubitus ulcers with associated osteomyelitis. There is some underlying bone thinning and sclerosis in the distal sacrum and coccyx underlying the decubitus ulcers. No acute fracture. No dislocation. Soft tissues: Unremarkable. Vasculature: Moderate plaque abdominal aorta and branches. No abdominal aortic aneurysm. Lymph nodes: Unremarkable. No enlarged lymph nodes. Tubes, lines and devices: Gastrostomy tube within the gastric body. IMPRESSION: 1. Sacrococcygeal decubitus ulcers with associated osteomyelitis. 2. Small left pleural effusion. Left lower lobe atelectasis. 3. Bladder wall thickening. Foci of gas in the bladder. Correlate for recent instrumentation versus cystitis. DAILY ESTIMATED NEEDS: Needs based on Advanced wound, critical care, underweight, [employer] TF/ 45.5kg 30-40 kcals/kg 1832-3772 total kcals 1.5-2 g protein/kg 68-91 g total protein 30-40 mL/kg 6440-2596 total fluid mLs NUTRITION DIAGNOSIS: Increased kcal/prot needs R/T underweight status, wound healing as evidenced by pt @83% IBW w/ underweight BMI of 17.2, admitted w/ multiple wounds, including stage 4 sacral wound. CURRENT TF:Glucerna 1.2 @ 45ml/hr x 24 hrs ENTERAL NUTRITION RECOMMENDATIONS: Glucerna 1.2 @ 60ml/hr x 24 hrs to provide 1440ml, 1728kcal, 86g prot, 1159ml free water * Increase goal rate to 60ml/hr x 24 hrs to meet 100% est kcal/prot needs -> 1.9g prot/kg * HOB over 30 degrees/ water flush per MD * add Shen BID ADDITIONAL RECOMMENDATIONS: * Per SNF: HT=64" and IS=565# vs EMR wt of 147lbs -> rec daily calibrated bedscale wt * Wound healing: TF rec @ goal will provide 100% RDI Vit C 500mg BID, ZnSO4 220gm QD x 10 days Shen BID via PEG * Monitor BGs, consider NISS: h/o DM * Monitor lytes, replete as needed (5) Chronic respiratory failure requiring continuous mechanical ventilation through tracheostomy (6) History of intracranial hemorrhage (7) Idiopathic obstructive hydrocephalus (8) Gout (9) Diabetes mellitus (10) Parkinson's disease dementia (11) Acute on chronic respiratory failure (12) Chronic vegetative state (13) Severe protein-calorie malnutrition Assessment & Plan: DAILY ESTIMATED NEEDS: Needs based on Advanced wound, critical care, underweight, [employer] TF/ 45.5kg 30-40 kcals/kg 2429-0152 total kcals 1.5-2 g protein/kg 68-91 g total protein 30-40 mL/kg 9340-5452 total fluid mLs NUTRITION DIAGNOSIS: Increased kcal/prot needs R/T underweight status, wound healing as evidenced by pt @83% IBW w/ underweight BMI of 17.2, admitted w/ multiple wounds, including stage 4 sacral wound. CURRENT TF:Glucerna 1.2 @ 60ml/hr x 24 hrs ENTERAL NUTRITION RECOMMENDATIONS: Glucerna 1.2 @ 60ml/hr x 24 hrs to provide 1440ml, 1728kcal, 86g prot, 1159ml free water * Maintain current TF rate as tolerated to meet 100% est kcal/prot needs -> 1.9g prot/kg. * HOB over 30 degrees/ water flush per MD * add Shen BID ADDITIONAL RECOMMENDATIONS: * Per SNF: HT=64" and HO=773# vs EMR wt of 147lbs -> Recalibrate bed scale for accurate CBW * Wound healing: TF rec @ goal will provide 100% RDI add Vit C 500mg BID, continue ZnSO4 220gm QD x 10 days Shen BID via PEG * Monitor BGs, consider NISS: h/o DM -> NISS now added * Increase water flushes for elevated Na (14) Hypercalcemia (15) Staphylococcus aureus bacteremia Assessment & Plan: unlikely related to wound checking often to ensure not worsening good local care being provided cont abx There is bilateral mostly upper lobe centrilobular emphysema. Mosaic attenuation pattern is seen throughout the bilateral upper lobes. There is consolidation and atelectasis of most of the left lower lobe. A few groundglass opacities are seen in the inferior left upper lobe. There is some compressive atelectasis at the right lung base with elevation of the right hemidiaphragm. There is a subpleural 8 mm nodular opacity in the right middle lobe. On recent abdomen pelvis CT scan, this demonstrated a cavity. The cavity is not evident currently There is a tracheostomy. The pleural spaces are clear. The heart size is normal. No pericardial effusion. No mediastinal or hilar mass or adenopathy. The ascending thoracic aorta is mildly ectatic, measuring up to 3.8 cm in diameter. The included portion of the thyroid is unremarkable. No axillary or chest wall mass or adenopathy demonstrated. There is smooth thoracic kyphosis without focal compression abnormality. The bones are unremarkable. Included upper abdominal anatomy demonstrates contrast in the colon from prior CT of the abdomen. There is a upper pole right renal cyst Impression: Centrilobular emphysema seen throughout both lungs with with an upper lobe predominance, indicating extensive COPD changes Mosaic attenuation pattern in the upper lobes probably related to COPD, although this is a nonspecific finding Dense consolidation and atelectasis of much of the left lower lobe. This could represent pneumonia. Groundglass opacities in the inferior left upper lobe. These could represent areas of acute inflammation, or could represent post inflammatory changes. 8mm nodule in the right middle lobe, also described on prior CT scan. This previously demonstrated a cavity. Cavitation currently not evident. Differential considerations include neoplasm, acute or chronic inflammatory lesion. Recommend at a minimum follow-up CT scan in 6 months Tracheostomy Kyphosis Right upper pole renal cyst Chris Hunter Mar 26, 2020 14:43
[2020-03-26 16:00] VITALS: BP 109/69
--- NOTE | 2020-03-26 16:00 | NUR ---
NURSE NOTES: Pt is awake, not in distress. Vital signs are stable. Tolerating vent setting with O2 sat 100%. Gtube is intact and patent. Pt is tolerating Glucerna 1.2 @ 70cc/hr. Collier cath is intact and patent. Will continue to monitor pt.
--- NOTE | 2020-03-26 16:03 | Cardiac Electrophysiology PN ---
Assessment/Plan Assessment/Plan 1. MRSA bacteremia. Most recent blood culture from March 13, 2020 showed no growth. Echocardiogram showed ejection fraction of 60-65% with no clear vegetation. DEBBIE cancelled as family refused. On iv Abx. Indium scan pending 2. VDRF , status post tracheostomy.On 40% Fio2 3. Dysphagia, status post PEG placement. 4. History of intracranial hemorrhage. 5. COPD. 6. Diabetes. 7. Glaucoma. 8. Sacral decubitus stage IV. 9. Hypertension, on Cardizem 10. Transient SVT. On Cardizem 30 tid DW RN Subjective Subjective Off pressors on the Vent in sinus tach Fio2 35% and PEEP 5. Family refused DEBBIE. Had episodes of SVT lasting less than 20 seconds 03/23/20. Has fever and sinus tach. Indium scan pending Objective Last 24 Hour Vital Signs Date Time Temp Pulse Resp B/P (MAP) Pulse Ox O2 Delivery O2 Flow Rate FiO2 03/26/20 13:43 101 125/73 03/26/20 12:00 113 03/26/20 12:00 35 03/26/20 12:00 Mechanical Ventilator 03/26/20 12:00 100.0 112 20 106/66 (79) 100 03/26/20 10:50 111 20 35 03/26/20 08:00 Mechanical Ventilator 03/26/20 08:00 35 03/26/20 08:00 110 03/26/20 08:00 99.1 107 20 117/68 (84) 100 03/26/20 07:16 110 22 35 03/26/20 05:36 103 103/67 03/26/20 04:00 99.7 104 20 134/68 (90) 99 03/26/20 04:00 102 03/26/20 04:00 35 03/26/20 04:00 Mechanical Ventilator 03/26/20 03:26 104 24 35 03/26/20 00:00 100 03/26/20 00:00 Mechanical Ventilator 03/25/20 23:44 98.2 99 24 113/67 (82) 100 03/25/20 22:36 100 28 35 03/25/20 22:00 97 100/71 03/25/20 20:24 Mechanical Ventilator 03/25/20 20:00 35 03/25/20 20:00 100.0 100 20 115/66 (82) 100 03/25/20 19:31 101 03/25/20 19:24 97 03/25/20 19:12 106 32 35 Intake and Output 03/25/20 03/26/20 19:00 07:00 Intake Total 1260 ml 1430 ml Output Total 800 ml 1000 ml Balance 460 ml 430 ml Free Water 300 ml 300 ml IV Total 300 ml 410 ml Tube Feeding 660 ml 720 ml Output Urine Total 800 ml 1000 ml # Bowel Movements 1 1 Laboratory Tests Test 03/25/20 17:04 03/25/20 23:24 03/26/20 05:26 03/26/20 07:30 POC Whole Blood Glucose 178 MG/DL (74-106) H 227 MG/DL (74-106) H 131 MG/DL (74-106) H White Blood Count 18.5 K/UL (4.8-10.8) H Red Blood Count 2.86 M/UL (4.20-5.40) L Hemoglobin 7.9 G/DL (12.0-16.0) L Hematocrit 23.2 % (37.0-47.0) L Mean Corpuscular Volume 81 FL (80-99) Mean Corpuscular Hemoglobin 27.6 PG (27.0-31.0) Mean Corpuscular Hemoglobin Concent 34.1 G/DL (32.0-36.0) Red Cell Distribution Width 19.3 % (11.6-14.8) H Platelet Count 558 K/UL (150-450) H Mean Platelet Volume 7.6 FL (6.5-10.1) Neutrophils (%) (Auto) % (45.0-75.0) Lymphocytes (%) (Auto) % (20.0-45.0) Monocytes (%) (Auto) % (1.0-10.0) Eosinophils (%) (Auto) % (0.0-3.0) Basophils (%) (Auto) % (0.0-2.0) Differential Total Cells Counted 100 Neutrophils % (Manual) 76 % (45-75) H Lymphocytes % (Manual) 14 % (20-45) L Monocytes % (Manual) 2 % (1-10) Eosinophils % (Manual) 5 % (0-3) H Basophils % (Manual) 1 % (0-2) Metamyelocytes % 1 % (0-0) H Band Neutrophils 1 % (0-8) Platelet Estimate Increased H Platelet Morphology Normal Anisocytosis 2+ Microcytosis 2+ Sodium Level 140 MMOL/L (136-145) Potassium Level 4.3 MMOL/L (3.5-5.1) Chloride Level 107 MMOL/L (98-107) Carbon Dioxide Level 29 MMOL/L (21-32) Anion Gap 4 mmol/L (5-15) L Blood Urea Nitrogen 17 mg/dL (7-18) Creatinine 1.0 MG/DL (0.55-1.30) Estimat Glomerular Filtration Rate > 60 mL/min (>60) Glucose Level 132 MG/DL (74-106) H Calcium Level 8.8 MG/DL (8.5-10.1) Total Bilirubin 0.3 MG/DL (0.2-1.0) Aspartate Amino Transf (AST/SGOT) 17 U/L (15-37) Alanine Aminotransferase (ALT/SGPT) 18 U/L (12-78) Alkaline Phosphatase 82 U/L (46-116) Total Protein 7.2 G/DL (6.4-8.2) Albumin 1.3 G/DL (3.4-5.0) L Globulin 5.9 g/dL Albumin/Globulin Ratio 0.2 (1.0-2.7) L Test 03/26/20 12:39 POC Whole Blood Glucose 228 MG/DL (74-106) H Objective HEAD AND NECK: No JVD. LUNGS: Coarse rhonchi. Status post tracheostomy. CARDIOVASCULAR: Regular S1 and S2 with no gallop or rub. Status post PEG. EXTREMITIES: 1+ pitting edema with sacral decubitus. Shay Alejandre MD Mar 26, 2020 16:03
--- NOTE | 2020-03-26 16:13 | Internal Med Progress Note ---
Subjective Date of Service: Mar 26, 2020 Physician Name JennPiyush Attending Physician Jesus Lutz MD Current Medications Medications (Trade) Dose Ordered Sig/Zaki Route PRN Reason Start Time Stop Time Status Last Admin Dose Admin Acetaminophen (Tylenol) 650 mg Q6H PRN GT Temp >100.5, Mild Pain 03/11/20 06:30 04/10/20 06:29 03/24/20 20:53 Aspirin (ASA) 81 mg DAILY GT 03/11/20 09:00 04/25/20 08:59 03/18/20 08:35 Calcitonin [place] (Miacalcin) 1 sprays DAILY NASAL 03/13/20 11:00 06/11/20 10:59 03/26/20 09:15 Dextrose (Dextrose 50%) 25 ml Q30M PRN IV Hypoglycemia 03/13/20 23:30 06/11/20 23:29 Dextrose (Dextrose 50%) 50 ml Q30M PRN IV Hypoglycemia 03/13/20 23:30 06/11/20 23:29 Diltiazem HCl (Cardizem Tab) 30 mg EVERY 8 HOURS GT 03/24/20 14:00 04/23/20 13:59 03/26/20 13:43 Diphenhydramine HCl (Benadryl) 25 mg Q8H PRN ORAL Itching 03/14/20 15:00 04/13/20 14:59 03/14/20 15:50 Famotidine (Pepcid) 20 mg BID GT 03/18/20 18:00 06/09/20 08:59 03/26/20 09:14 Insulin Aspart (NovoLOG) Q6HR SUBQ 03/14/20 00:00 06/12/20 00:00 03/26/20 12:43 Levofloxacin 150 ml @ 150 mls/hr Q48H IVPB 03/22/20 09:00 03/29/20 08:59 03/26/20 09:14 Linezolid 300 ml @ 300 mls/hr Q12HR IVPB 03/22/20 13:00 03/29/20 12:59 03/26/20 09:14 Ondansetron HCl (Zofran) 4 mg Q4H PRN IVP Nausea & Vomiting 03/11/20 06:30 04/10/20 06:29 Piperacillin Sod/ Tazobactam Sod 3.375 gm/Sodium Chloride 110 ml @ 27.5 mls/hr EVERY 8 HOURS IVPB 03/17/20 22:00 03/31/20 21:59 03/26/20 13:42 Allergies: Coded Allergies: No Known Allergies (Unverified , 03/11/20) ROS Limited/Unobtainable: Yes Subjective 74 YO F trach dependent admitted with hypoxic respiratory failure. Now pneumonia and sepsis. Cover for Int Med-Dr Lutz. Step down unit. fever of 100.0 F Objective Last Vital Signs Date Time Temp Pulse Resp B/P (MAP) Pulse Ox O2 Delivery O2 Flow Rate FiO2 03/26/20 13:43 101 125/73 03/26/20 12:00 35 03/26/20 12:00 Mechanical Ventilator 03/26/20 12:00 100.0 20 100 Laboratory Tests Test 03/25/20 17:04 03/25/20 23:24 03/26/20 05:26 03/26/20 07:30 POC Whole Blood Glucose 178 MG/DL (74-106) H 227 MG/DL (74-106) H 131 MG/DL (74-106) H White Blood Count 18.5 K/UL (4.8-10.8) H Red Blood Count 2.86 M/UL (4.20-5.40) L Hemoglobin 7.9 G/DL (12.0-16.0) L Hematocrit 23.2 % (37.0-47.0) L Mean Corpuscular Volume 81 FL (80-99) Mean Corpuscular Hemoglobin 27.6 PG (27.0-31.0) Mean Corpuscular Hemoglobin Concent 34.1 G/DL (32.0-36.0) Red Cell Distribution Width 19.3 % (11.6-14.8) H Platelet Count 558 K/UL (150-450) H Mean Platelet Volume 7.6 FL (6.5-10.1) Neutrophils (%) (Auto) % (45.0-75.0) Lymphocytes (%) (Auto) % (20.0-45.0) Monocytes (%) (Auto) % (1.0-10.0) Eosinophils (%) (Auto) % (0.0-3.0) Basophils (%) (Auto) % (0.0-2.0) Differential Total Cells Counted 100 Neutrophils % (Manual) 76 % (45-75) H Lymphocytes % (Manual) 14 % (20-45) L Monocytes % (Manual) 2 % (1-10) Eosinophils % (Manual) 5 % (0-3) H Basophils % (Manual) 1 % (0-2) Metamyelocytes % 1 % (0-0) H Band Neutrophils 1 % (0-8) Platelet Estimate Increased H Platelet Morphology Normal Anisocytosis 2+ Microcytosis 2+ Sodium Level 140 MMOL/L (136-145) Potassium Level 4.3 MMOL/L (3.5-5.1) Chloride Level 107 MMOL/L (98-107) Carbon Dioxide Level 29 MMOL/L (21-32) Anion Gap 4 mmol/L (5-15) L Blood Urea Nitrogen 17 mg/dL (7-18) Creatinine 1.0 MG/DL (0.55-1.30) Estimat Glomerular Filtration Rate > 60 mL/min (>60) Glucose Level 132 MG/DL (74-106) H Calcium Level 8.8 MG/DL (8.5-10.1) Total Bilirubin 0.3 MG/DL (0.2-1.0) Aspartate Amino Transf (AST/SGOT) 17 U/L (15-37) Alanine Aminotransferase (ALT/SGPT) 18 U/L (12-78) Alkaline Phosphatase 82 U/L (46-116) Total Protein 7.2 G/DL (6.4-8.2) Albumin 1.3 G/DL (3.4-5.0) L Globulin 5.9 g/dL Albumin/Globulin Ratio 0.2 (1.0-2.7) L Test 03/26/20 12:39 POC Whole Blood Glucose 228 MG/DL (74-106) H Intake and Output 03/25/20 03/26/20 19:00 07:00 Intake Total 1260 ml 1430 ml Output Total 800 ml 1000 ml Balance 460 ml 430 ml Free Water 300 ml 300 ml IV Total 300 ml 410 ml Tube Feeding 660 ml 720 ml Output Urine Total 800 ml 1000 ml # Bowel Movements 1 1 Objective PHYSICAL EXAMINATION: GENERAL: The patient is a thin-appearing female who is intubated and nonverbal. HEENT: Eyes, pupils are equal and responsive to light and accommodation. Extraocular movements are intact. NECK: Supple without lymphadenopathy. Tracheostomy is in place. CHEST: Mech vent; Diffuse wheezes bilaterally without rhonchi. CARDIOVASCULAR: Tachycardic, regular rhythm. S1, S2 are normal without murmurs, rubs, or gallops. ABDOMEN: Soft, nontender, and nondistended. Positive bowel sounds. No evidence of hepatosplenomegaly. Currently, no rebound or guarding noted. EXTREMITIES: Negative for clubbing, cyanosis, or edema. RECTAL/GENITAL: Not performed. NEUROLOGIC: Unable to assess. chest x-ray revealed left lower lobe consolidation consistent with pneumonia Assessment/Plan Assessment/Plan ASSESSMENT: This is a 74-year-old female. 1. Left lower lobe pneumonia. 2. Respiratory failure. 3. Hypernatremia. 4. Renal failure. 5. Hypoxemia. 6. Tracheostomy dependence. 7. Chronic obstructive pulmonary disease. 8. Diabetes type 2. 9. Parkinson disease. 10. Gout. 11. Glaucoma. 12. Sacral decubitus ulcer stage IV. 13. History of intracranial hemorrhage. 14. Hydrocephalus. 15. sepsis=MRSA 16. UTI=MDR acenitobacter TREATMENT: 1. Left lower lobe pneumonia/respiratory failure/sepsis. Pulmonary consultation =Dr. Patti Matta. ABX= continue linezolid, zosyn and levaquin. S/P vanco-see ID note Infectious disease=Dr. Villegas. We will follow recommendations of Infectious Disease and Pulmonary. 2. Hypernatremia. Hypernatremia may be secondary to renal failure versus dehydration. Nephrology consultation =. 3. Renal failure nephrology consultation =Dr. Huntley. 4. Tracheostomy dependence. 5. Chronic obstructive pulmonary disease. 6. Diabetes type 2. NovoLog sliding scale has been instituted. 7. Parkinson disease. 8. Gout. Continue allopurinol as above. 9. Glaucoma. 10. Sacral decubitus ulcer stage IV. A general surgery consultation has been obtained with Dr. Chris Hunter. 11. History of intracranial hemorrhage. 12. DEBBIE refused by patient's daughter; cardiology=Trista Alejandre and Rachel 13. Await indium scan Piyush Barajas MD Mar 26, 2020 16:13
--- NOTE | 2020-03-26 16:57 | Pulmonolgy Critical Care Note ---
Critical Care - Asmt/Plan Problems: (1) Persistent fever (2) Acute on chronic respiratory failure (3) Staphylococcus aureus bacteremia (4) Sepsis (5) Chronic respiratory failure requiring continuous mechanical ventilation through tracheostomy (6) Stage 4 decubitus ulcer (7) Diabetes mellitus (8) Parkinson's disease dementia (9) Gout (10) Idiopathic obstructive hydrocephalus (11) Severe protein-calorie malnutrition (12) History of intracranial hemorrhage (13) Chronic vegetative state Respiratory: monitor respiratory rate, adjust FIO2, CXR Cardiac: continue to monitor HR/BP Renal: F/U I&O, keep IV fluid, check electrolytes Infectious Disease: check cultures, continue antibiotics Gastrointestinal: continue feedings/current rate Endocrine: continue sliding scale insulin Hematologic: monitor H/H, transfuse if hgb<8.5 Neurologic: PRN Ativan, PRN Morphine, keep patient comfortable Affect: PRN ativan Disposition: keep in ICU Notes Reviewed: all around presser, renal Discussed with: nurses, consultants, social work case managersales administration manager - Objective Last 24 Hour Vital Signs Date Time Temp Pulse Resp B/P (MAP) Pulse Ox O2 Delivery O2 Flow Rate FiO2 03/26/20 16:00 98.1 95 20 109/69 (82) 100 03/26/20 16:00 Mechanical Ventilator 03/26/20 16:00 98 03/26/20 16:00 35 03/26/20 14:50 98 25 35 03/26/20 13:43 101 125/73 03/26/20 12:00 113 03/26/20 12:00 35 03/26/20 12:00 Mechanical Ventilator 03/26/20 12:00 100.0 112 20 106/66 (79) 100 03/26/20 10:50 111 20 35 03/26/20 08:00 Mechanical Ventilator 03/26/20 08:00 35 03/26/20 08:00 110 03/26/20 08:00 99.1 107 20 117/68 (84) 100 03/26/20 07:16 110 22 35 03/26/20 05:36 103 103/67 03/26/20 04:00 99.7 104 20 134/68 (90) 99 03/26/20 04:00 102 03/26/20 04:00 35 03/26/20 04:00 Mechanical Ventilator 03/26/20 03:26 104 24 35 03/26/20 00:00 100 03/26/20 00:00 Mechanical Ventilator 03/25/20 23:44 98.2 99 24 113/67 (82) 100 03/25/20 22:36 100 28 35 03/25/20 22:00 97 100/71 03/25/20 20:24 Mechanical Ventilator 03/25/20 20:00 35 03/25/20 20:00 100.0 100 20 115/66 (82) 100 03/25/20 19:31 101 03/25/20 19:24 97 03/25/20 19:12 106 32 35 Status: awake Condition: critical HEENT: normocephalic Neck: trach Lungs: rhonchi Heart: HR/BP stable, regular Abdomen: non-tender, active bowel sounds Extremities: no C/C/E Accucheck: 229 Critical Care - Subjective ROS Limited/Unobtainable: Yes FI02: 35 Vent Support Breath Rate: 16 Vent Support Mode: AC Vent Tidal Volume: 400 Sputum Amount: Moderate PEEP: 5.0 PIP: 23 Tube Feeding Amount: 60 I&O: Intake and Output 03/25/20 03/26/20 19:00 07:00 Intake Total 1260 ml 1430 ml Output Total 800 ml 1000 ml Balance 460 ml 430 ml Free Water 300 ml 300 ml IV Total 300 ml 410 ml Tube Feeding 660 ml 720 ml Output Urine Total 800 ml 1000 ml # Bowel Movements 1 1 Labs: Laboratory Tests Test 03/25/20 17:04 03/25/20 23:24 03/26/20 05:26 03/26/20 07:30 POC Whole Blood Glucose 178 MG/DL (74-106) H 227 MG/DL (74-106) H 131 MG/DL (74-106) H White Blood Count 18.5 K/UL (4.8-10.8) H Red Blood Count 2.86 M/UL (4.20-5.40) L Hemoglobin 7.9 G/DL (12.0-16.0) L Hematocrit 23.2 % (37.0-47.0) L Mean Corpuscular Volume 81 FL (80-99) Mean Corpuscular Hemoglobin 27.6 PG (27.0-31.0) Mean Corpuscular Hemoglobin Concent 34.1 G/DL (32.0-36.0) Red Cell Distribution Width 19.3 % (11.6-14.8) H Platelet Count 558 K/UL (150-450) H Mean Platelet Volume 7.6 FL (6.5-10.1) Neutrophils (%) (Auto) % (45.0-75.0) Lymphocytes (%) (Auto) % (20.0-45.0) Monocytes (%) (Auto) % (1.0-10.0) Eosinophils (%) (Auto) % (0.0-3.0) Basophils (%) (Auto) % (0.0-2.0) Differential Total Cells Counted 100 Neutrophils % (Manual) 76 % (45-75) H Lymphocytes % (Manual) 14 % (20-45) L Monocytes % (Manual) 2 % (1-10) Eosinophils % (Manual) 5 % (0-3) H Basophils % (Manual) 1 % (0-2) Metamyelocytes % 1 % (0-0) H Band Neutrophils 1 % (0-8) Platelet Estimate Increased H Platelet Morphology Normal Anisocytosis 2+ Microcytosis 2+ Sodium Level 140 MMOL/L (136-145) Potassium Level 4.3 MMOL/L (3.5-5.1) Chloride Level 107 MMOL/L (98-107) Carbon Dioxide Level 29 MMOL/L (21-32) Anion Gap 4 mmol/L (5-15) L Blood Urea Nitrogen 17 mg/dL (7-18) Creatinine 1.0 MG/DL (0.55-1.30) Estimat Glomerular Filtration Rate > 60 mL/min (>60) Glucose Level 132 MG/DL (74-106) H Calcium Level 8.8 MG/DL (8.5-10.1) Total Bilirubin 0.3 MG/DL (0.2-1.0) Aspartate Amino Transf (AST/SGOT) 17 U/L (15-37) Alanine Aminotransferase (ALT/SGPT) 18 U/L (12-78) Alkaline Phosphatase 82 U/L (46-116) Total Protein 7.2 G/DL (6.4-8.2) Albumin 1.3 G/DL (3.4-5.0) L Globulin 5.9 g/dL Albumin/Globulin Ratio 0.2 (1.0-2.7) L Test 03/26/20 12:39 POC Whole Blood Glucose 228 MG/DL (74-106) H Patti Matta MD Mar 26, 2020 16:57
--- NOTE | 2020-03-26 19:15 | NUR ---
NURSE NOTES: Received report from Dinora Ward RN. Pt obtunded. Respirations even and unlabored. No distress noted. SR on bus driver/monitor. Tolerating vent setting of AC 16, TV 400, FiO2 35%, PEEP 5 and saturating 100%. Peripheral IV in R wrist 22G is intact and patent. Gtube feeding running Glucerna 1.2 @ 70cc/hr. Collier cath draining well of light arminda urine. Bed locked in lowest position, bed alarm engaged, call light is within reach. HOB at 45 degrees. Will continue POC
--- NOTE | 2020-03-26 19:45 | NUR ---
NURSE HAND-OFF REPORT: Important Events on Shift:None Patient Status: Full code Diet: Glucerna 1.2 @ 70cc/hr Pending Orders: N Pending Results/Labs:N Pending notification:N Latest Vital Signs: Temperature 98.1 , Pulse 97 , B/P 109 /69 , Respiratory Rate 22 , O2 SAT 100 , Mechanical Ventilator, O2 Flow Rate . Vital Sign Comment: EKG Rhythm: Sinus Rhythm Rhythm change?: N MD Notified?: Zacarias Alejandre MD Response: Latest Ochoa Fall Score: 50 Fall Risk: High Risk Safety Measures: Call light Within Reach, Bed Alarm Zone 2, Side Rails Side Rails x3, Bed position Low and Locked. Fall Precautions: Yellow Socks Yellow Gown Door Sign Patient Fall Education Report given to Saran Friedman RN.
[2020-03-26 20:00] VITALS: BP 112/66
[2020-03-27] VITALS: BP 105/63
--- NOTE | 2020-03-27 | NUR ---
NURSE NOTES: Sleeping off and on.Respiration even and unlabored. VSS. afebrile. No distress noted.
[2020-03-27 04:00] VITALS: BP 103/56
--- NOTE | 2020-03-27 04:00 | NUR ---
NURSE NOTES: Wound care done. Continue to tolerate GT feeding well. SR on environmental monitoring specialist. In no apparent distress.
[2020-03-27] MEDS: Piperacillin/Tazobactam 3.375 GM in NS 110 ML IVPB SCH ×3 (04:57→21:34)
[2020-03-27] MEDS: NovoLOG Insulin Flexpen SUBQ SCH ×5 (05:09→23:18)
[2020-03-27] MEDS: dilTIAZem HCl 30mg tab GT SCH ×3 (05:12→21:33)
[2020-03-27 05:36] LABS: HEMATOCRIT 23.8 % (37.0-47.0); HEMOGLOBIN 7.9 G/DL (12.0-16.0); MEAN CORPUSCULAR VOLUME 81 FL (80-99); PLATELET COUNT 521 K/UL (150-450); RED BLOOD COUNT 2.94 M/UL (4.20-5.40); RED CELL DISTRIBUTION WIDTH 19.8 % (11.6-14.8); WHITE BLOOD COUNT 16.6 K/UL (4.8-10.8)
[2020-03-27 06:03] LABS: BLOOD UREA NITROGEN 17 mg/dL (7-18); CALCIUM 8.8 MG/DL (8.5-10.1); CARBON DIOXIDE 27 MMOL/L (21-32); CHLORIDE 105 MMOL/L (98-107); CREATININE 0.8 MG/DL (0.55-1.30); POTASSIUM 4.3 MMOL/L (3.5-5.1); SODIUM 140 MMOL/L (136-145)
--- NOTE | 2020-03-27 07:25 | NUR ---
HAND-OFF: Report given to Cynthia Jaramillo RN.
--- NOTE | 2020-03-27 07:30 | NUR ---
NURSE NOTES: Received report from ADILENE Noonan. The patient is resting on the bed without acute distress or shortness of breath. The patient is obtunded, opening eyes spontaneously, but eyes are not tracking nor following the command. Communication made by facial expression and body movement. SR to ST w/ HR of 110s on the cafeteria director. The patient is trach'ed and on ventilator on following setting and oxygen saturation is 100%: Port[place] 7, AC 16, TV 400, FiO2 35%, PEEP 5. The patient's GT intact and patent and running Glucerna 1.2 @ 70mL/hr and no residual noted at this time. Collier that was inserted by Dr. Franco intact and patent and draining by gravity. Skin issue noted and dressing intact. The patient has PIV on R wrist 20G that is intact and patent. New PIV inserted on L FA 20G that is intact and patent. The patient's bed in the lowest position, call light in reach, and fall and aspiration precaution reinforced. PIV site intact and patent. Will follow up the order and plan. Will closely monitor the patient. will continue plan of care.
[2020-03-27 08:00] VITALS: BP 126/62
--- NOTE | 2020-03-27 08:00 | NUR ---
NURSE NOTES: Morning assessment done. Morning vital signs taken. The patient is stable at this time. The patient is pending for NM Indium scan per Dr. Cruz. Will closely monitor the patient. Will continue plan of care.
[2020-03-27] MEDS: Aspirin Baby 81mg GT SCH (09:00)
--- NOTE | 2020-03-27 09:00 | NUR ---
NURSE NOTES: Dr. Matta was notified regarding abnormal lab including WBC and Hgb. Per Dr. Matta, no transfusion at this time and Hgb goal >7. Will closely monitor the patient. Will continue plan of care.
--- NOTE | 2020-03-27 09:57 | Infectious Diseases Prog Note ---
Assessment/Plan 74yo F with: Febrile, persistent Leukocytosis, persistent Thrombocytosis, increasing >> improving Sepsis Left lower lung infiltrate Acute on chronic resp failure SP trach MRSA bacteremia DEBBIE cancelled as family refused RML cavitation, not seen on CT chest 03/11 BCx +MRSA Resp cx +PsA (S-Zosyn, I-merissa and cefepime) UCx 30-40k ACB (colonizer) COVID rapid Ag neg CXR: Midline tracheostomy. Small left pleural effusion. Hyperinflation with flattening of the diaphragms and emphysema, consistent with COPD. No lobar infiltrate. 03/12 BCx NTD 03/13 C.dif neg 03/13 BCx NTD 03/14 BCx NTD 03/14 CT A/P: 1. Sacrococcygeal decubitus ulcers with associated osteomyelitis. 2. Small left pleural effusion. Left lower lobe atelectasis. 3. Bladder wall thickening. Foci of gas in the bladder. Correlate for recent instrumentation versus cystitis. Lung bases: Small nodular focus of cavitation in the right middle lobe. This may be secondary to infection. Recommend continued follow-up. Emphysematous changes in the lung bases. 1.2 cm nodular focus with some central cavitation in the right middle lobe. Pleural space: Small left pleural effusion. Left lower lobe atelectasis. 03/14 TTE: No vegetations, thickened valves 03/17 CXR: 1. Unchanged tracheostomy. 2. Mildly more pronounced linear interstitial prominence could represent atypical infection or interstitial pulmonary edema in the proper clinical context. 3. Unchanged hyperinflation. 4. Unchanged mild retrocardiac atelectasis without or with consolidation. 03/20 BCx NTD 03/20 CT chest: Centrilobular emphysema seen throughout both lungs with with an upper lobe predominance, indicating extensive COPD changes. Mosaic attenuation pattern in the upper lobes probably related to COPD, although this is a nonspecific finding. Dense consolidation and atelectasis of much of the left lower lobe. This could represent pneumonia. Groundglass opacities in the inferior left upper lobe. These could represent areas of acute inflammation, or could represent post inflammatory changes. 8mm nodule in the right middle lobe, also described on prior CT scan. This previously demonstrated a cavity. Cavitation currently not evident. Differential considerations include neoplasm, acute or chronic inflammatory lesion. Recommend at a minimum follow-up CT scan in 6 months 03/21 Resp cx +Serratia and PsA (S-Zosyn) 03/21 SPC changed 03/22 UA/UCx +yeast BUE and BLE neg for DVT 03/21 MRSA nares positive VDRF S/p trach/PEG Bed bound Sacral decub ulceration w/ underlying OM Plan: Cont levofloxacin #5/7-10 to cover for prior found ACB in UCx given ongoing fevers Cont Zosyn #10/10 for broader coverage given ongoing fever, increasing WBC, pna (PsA in resp cx I-merissa) Cont Zyvox #5, for MRSA bacteremia, duration TBD 03/22 Sp IV vancomycin #11 03/14 SP cefepime #4 Tagged WBC scan, f/u results, today is day 1 of 3 of scan Appreciate Wound Care/Surgery input on worsening sacral decub Agree with hospice evaluation if family decides Given ongoing fevers, high platelets, slow to improve leukocytosis, high s/f undiagnosed endocarditis, c/w aortic root abscess given ongoing fevers. DEBBIE would be helpful for diagnosis - EKG w/ KS interval 110, wnl - Consider cardiac MRI vs PET vs tagged WBC if ongoing fevers and pt not definitively going w/ hospice Trend WBC Trend plts Trend temp curve Monitor CBC/CMP Monitor temp curve, hemodynamics Monitor resp status D/w RN Thank you for this consult. [facility] will continue to follow. Subjective Allergies: Coded Allergies: No Known Allergies (Unverified , 03/11/20) Tmax 100.0, improved WBC 16, improving Plts 521, improving NAD on vent per RN, has worsening stage 4 sacral decub, bleeding Objective Last 24 Hour Vital Signs Date Time Temp Pulse Resp B/P (MAP) Pulse Ox O2 Delivery O2 Flow Rate FiO2 03/27/20 07:05 104 25 35 03/27/20 05:12 99 103/56 03/27/20 04:00 99 03/27/20 04:00 98.2 99 20 103/56 (72) 100 03/27/20 04:00 35 03/27/20 04:00 Mechanical Ventilator 03/27/20 03:30 95 24 35 03/27/20 00:00 35 03/27/20 00:00 Mechanical Ventilator 03/27/20 00:00 98.2 93 20 105/63 (77) 100 03/27/20 00:00 93 03/26/20 22:41 94 20 35 03/26/20 21:14 100 112/66 03/26/20 20:00 35 03/26/20 20:00 Mechanical Ventilator 03/26/20 20:00 99.0 100 22 112/66 (81) 100 03/26/20 20:00 98 03/26/20 19:24 97 22 35 03/26/20 16:00 98.1 95 20 109/69 (82) 100 03/26/20 16:00 Mechanical Ventilator 03/26/20 16:00 98 03/26/20 16:00 35 03/26/20 14:50 98 25 35 03/26/20 13:43 101 125/73 03/26/20 12:00 113 03/26/20 12:00 35 03/26/20 12:00 Mechanical Ventilator 03/26/20 12:00 100.0 112 20 106/66 (79) 100 03/26/20 10:50 111 20 35 Height (Feet): 5 Height (Inches): 5.00 Weight (Pounds): 147 Gen: NAD in bed HEENT: NCAT, trach + secretions CV: RRR Pulm: CTAB Abd: Soft, NTND, +PEG +SPC Ext: No c/c/e Skin: Stage 4 sacral decub ulceration, clean Neuro: Awake, not interactive Laboratory Tests Test 03/26/20 12:39 03/26/20 17:58 03/27/20 02:59 POC Whole Blood Glucose 228 MG/DL (74-106) H 159 MG/DL (74-106) H White Blood Count 16.6 K/UL (4.8-10.8) H Red Blood Count 2.94 M/UL (4.20-5.40) L Hemoglobin 7.9 G/DL (12.0-16.0) L Hematocrit 23.8 % (37.0-47.0) L Mean Corpuscular Volume 81 FL (80-99) Mean Corpuscular Hemoglobin 27.0 PG (27.0-31.0) Mean Corpuscular Hemoglobin Concent 33.4 G/DL (32.0-36.0) Red Cell Distribution Width 19.8 % (11.6-14.8) H Platelet Count 521 K/UL (150-450) H Mean Platelet Volume 7.7 FL (6.5-10.1) Neutrophils (%) (Auto) % (45.0-75.0) Lymphocytes (%) (Auto) % (20.0-45.0) Monocytes (%) (Auto) % (1.0-10.0) Eosinophils (%) (Auto) % (0.0-3.0) Basophils (%) (Auto) % (0.0-2.0) Neutrophils % (Manual) Pending Lymphocytes % (Manual) Pending Platelet Estimate Pending Platelet Morphology Pending Sodium Level 140 MMOL/L (136-145) Potassium Level 4.3 MMOL/L (3.5-5.1) Chloride Level 105 MMOL/L (98-107) Carbon Dioxide Level 27 MMOL/L (21-32) Blood Urea Nitrogen 17 mg/dL (7-18) Creatinine 0.8 MG/DL (0.55-1.30) Estimat Glomerular Filtration Rate > 60 mL/min (>60) Glucose Level 142 MG/DL (74-106) H Calcium Level 8.8 MG/DL (8.5-10.1) Current Medications Medications (Trade) Dose Ordered Sig/Zaki Route PRN Reason Start Time Stop Time Status Last Admin Dose Admin Acetaminophen (Tylenol) 650 mg Q6H PRN GT Temp >100.5, Mild Pain 03/11/20 06:30 04/10/20 06:29 03/24/20 20:53 Aspirin (ASA) 81 mg DAILY GT 03/11/20 09:00 04/25/20 08:59 03/18/20 08:35 Calcitonin [place] (Miacalcin) 1 sprays DAILY NASAL 03/13/20 11:00 06/11/20 10:59 03/27/20 09:13 Dextrose (Dextrose 50%) 25 ml Q30M PRN IV Hypoglycemia 03/13/20 23:30 06/11/20 23:29 Dextrose (Dextrose 50%) 50 ml Q30M PRN IV Hypoglycemia 03/13/20 23:30 06/11/20 23:29 Diltiazem HCl (Cardizem Tab) 30 mg EVERY 8 HOURS GT 03/24/20 14:00 04/23/20 13:59 03/26/20 21:14 Diphenhydramine HCl (Benadryl) 25 mg Q8H PRN ORAL Itching 03/14/20 15:00 04/13/20 14:59 03/14/20 15:50 Famotidine (Pepcid) 20 mg BID GT 03/18/20 18:00 06/09/20 08:59 03/27/20 09:12 Insulin Aspart (NovoLOG) Q6HR SUBQ 03/14/20 00:00 06/12/20 00:00 03/27/20 05:09 Levofloxacin 150 ml @ 150 mls/hr Q48H IVPB 03/22/20 09:00 03/29/20 08:59 03/26/20 09:14 Linezolid 300 ml @ 300 mls/hr Q12HR IVPB 03/22/20 13:00 03/29/20 12:59 03/27/20 09:13 Ondansetron HCl (Zofran) 4 mg Q4H PRN IVP Nausea & Vomiting 03/11/20 06:30 04/10/20 06:29 Piperacillin Sod/ Tazobactam Sod 3.375 gm/Sodium Chloride 110 ml @ 27.5 mls/hr EVERY 8 HOURS IVPB 03/17/20 22:00 03/31/20 21:59 03/27/20 04:57 Shirley Villegas M.D. Mar 27, 2020 09:57
--- NOTE | 2020-03-27 10:00 | NUR ---
NURSE NOTES: Morning medications administered per order. The patient tolerated well. Held ASA due to down trending hemoglobin level. Will closely monitor the patient. Will continue plan of care.
--- NOTE | 2020-03-27 10:50 | NUR ---
Indium WBC scan: Blood drawn and sent to [facility] for WBC labeling. Return time for labeled WBCs is 3-6 hours. Addendum: 03/27/20 at 1417 by LACHO MEZA Indium-111 labeled WBC re-injected. Scanning will be done tomorrow per protocol.
--- NOTE | 2020-03-27 11:00 | NUR ---
NURSE NOTES: Dr. Alejandre at the bedside assessed the patient. Notified the patient's condition. No new order at this time. Will continue plan of care.
[2020-03-27 12:00] VITALS: BP 129/77
--- NOTE | 2020-03-27 12:00 | NUR ---
NURSE NOTES: Wound care nurse at the bedside for assessment and dressing change. Wound care performed in a safe manner. Will continue plan of care.
--- NOTE | 2020-03-27 12:30 | NUR ---
NURSE NOTES: BS 152 noted. Novolog administered per protocol. TF running per order. Will continue plan of care.
--- NOTE | 2020-03-27 13:00 | NUR ---
NURSE NOTES: Dr. Villegas at the bedside assessed the patient. Notified the patient's condition, abnormal lab, and NM Indium scan in process. No new order at this time. Will continue plan of care.
--- NOTE | 2020-03-27 13:07 | Surgery Progress Note ---
Surgery Progress Note Subjective Additional Comments `no acute events labs noted exam stable on support Objective Last 24 Hour Vital Signs Date Time Temp Pulse Resp B/P (MAP) Pulse Ox O2 Delivery O2 Flow Rate FiO2 03/27/20 11:00 114 26 35 03/27/20 08:00 106 03/27/20 08:00 Mechanical Ventilator 03/27/20 08:00 35 03/27/20 08:00 98.8 109 20 126/62 (83) 100 03/27/20 07:05 104 25 35 03/27/20 05:12 99 103/56 03/27/20 04:00 99 03/27/20 04:00 98.2 99 20 103/56 (72) 100 03/27/20 04:00 35 03/27/20 04:00 Mechanical Ventilator 03/27/20 03:30 95 24 35 03/27/20 00:00 35 03/27/20 00:00 Mechanical Ventilator 03/27/20 00:00 98.2 93 20 105/63 (77) 100 03/27/20 00:00 93 03/26/20 22:41 94 20 35 03/26/20 21:14 100 112/66 03/26/20 20:00 35 03/26/20 20:00 Mechanical Ventilator 03/26/20 20:00 99.0 100 22 112/66 (81) 100 03/26/20 20:00 98 03/26/20 19:24 97 22 35 03/26/20 16:00 98.1 95 20 109/69 (82) 100 03/26/20 16:00 Mechanical Ventilator 03/26/20 16:00 98 03/26/20 16:00 35 03/26/20 14:50 98 25 35 03/26/20 13:43 101 125/73 I&O Intake and Output 03/26/20 03/27/20 19:00 07:00 Intake Total 1408.25 ml 1035.0 ml Output Total 750 ml 550 ml Balance 658.25 ml 485.0 ml Free Water 110 ml IV Total 458.25 ml 465.0 ml Tube Feeding 840 ml 570 ml Output Urine Total 750 ml 550 ml # Bowel Movements 1 Dressing: saturated Cardiovascular: RSR Respiratory: decreased breath sounds Abdomen: non-tender, present bowel sounds, non-distended Extremities: no tenderness, no cyanosis Laboratory Tests Test 03/26/20 17:58 03/27/20 02:59 03/27/20 12:41 POC Whole Blood Glucose 159 MG/DL (74-106) H 152 MG/DL (74-106) H White Blood Count 16.6 K/UL (4.8-10.8) H Red Blood Count 2.94 M/UL (4.20-5.40) L Hemoglobin 7.9 G/DL (12.0-16.0) L Hematocrit 23.8 % (37.0-47.0) L Mean Corpuscular Volume 81 FL (80-99) Mean Corpuscular Hemoglobin 27.0 PG (27.0-31.0) Mean Corpuscular Hemoglobin Concent 33.4 G/DL (32.0-36.0) Red Cell Distribution Width 19.8 % (11.6-14.8) H Platelet Count 521 K/UL (150-450) H Mean Platelet Volume 7.7 FL (6.5-10.1) Neutrophils (%) (Auto) % (45.0-75.0) Lymphocytes (%) (Auto) % (20.0-45.0) Monocytes (%) (Auto) % (1.0-10.0) Eosinophils (%) (Auto) % (0.0-3.0) Basophils (%) (Auto) % (0.0-2.0) Differential Total Cells Counted 100 Neutrophils % (Manual) 73 % (45-75) Lymphocytes % (Manual) 10 % (20-45) L Monocytes % (Manual) 7 % (1-10) Eosinophils % (Manual) 7 % (0-3) H Basophils % (Manual) 0 % (0-2) Myelocytes % 2 % (0-0) H Band Neutrophils 1 % (0-8) Platelet Estimate Increased H Platelet Morphology Normal Polychromasia Occasional Anisocytosis 2+ Microcytosis 2+ Sodium Level 140 MMOL/L (136-145) Potassium Level 4.3 MMOL/L (3.5-5.1) Chloride Level 105 MMOL/L (98-107) Carbon Dioxide Level 27 MMOL/L (21-32) Blood Urea Nitrogen 17 mg/dL (7-18) Creatinine 0.8 MG/DL (0.55-1.30) Estimat Glomerular Filtration Rate > 60 mL/min (>60) Glucose Level 142 MG/DL (74-106) H Calcium Level 8.8 MG/DL (8.5-10.1) Plan Problems: (1) Hypernatremia (2) Sepsis (3) UTI (urinary tract infection) (4) Stage 4 decubitus ulcer Assessment & Plan: Stage 4 ulcer on admission. macerated edges. serous drainage. foul odor. no active infection Tx plan: wash with NS. apply therahoney gauze and dressing daily change prn saturation CT noted. osteo in sacrum cont abx osteo chronic will monitor and asses if debridement needed ABDOMEN: Liver: Unremarkable. No mass. Gallbladder and bile ducts: Unremarkable. No calcified stones. No ductal dilation. Pancreas: Unremarkable. No mass. No ductal dilation. Spleen: Spleen is small. Adrenals: Unremarkable. No mass. Kidneys and ureters: Renal cysts and subcentimeter low-attenuation foci, too small to characterize. No hydronephrosis. Stomach and bowel: Unremarkable. No obstruction. No mucosal thickening. PELVIS: Appendix: No findings to suggest acute appendicitis. Bladder: Bladder wall thickening. Foci of gas in the bladder. Correlate for recent instrumentation versus cystitis. Reproductive: Unremarkable as visualized. ABDOMEN and PELVIS: Intraperitoneal space: Unremarkable. No free air. No significant fluid collection. Bones/joints: Sacrococcygeal decubitus ulcers with associated osteomyelitis. There is some underlying bone thinning and sclerosis in the distal sacrum and coccyx underlying the decubitus ulcers. No acute fracture. No dislocation. Soft tissues: Unremarkable. Vasculature: Moderate plaque abdominal aorta and branches. No abdominal aortic aneurysm. Lymph nodes: Unremarkable. No enlarged lymph nodes. Tubes, lines and devices: Gastrostomy tube within the gastric body. IMPRESSION: 1. Sacrococcygeal decubitus ulcers with associated osteomyelitis. 2. Small left pleural effusion. Left lower lobe atelectasis. 3. Bladder wall thickening. Foci of gas in the bladder. Correlate for recent instrumentation versus cystitis. DAILY ESTIMATED NEEDS: Needs based on Advanced wound, critical care, underweight, MONOTYPE MECHANIC TF/ 45.5kg 30-40 kcals/kg 9009-4158 total kcals 1.5-2 g protein/kg 68-91 g total protein 30-40 mL/kg 1017-1720 total fluid mLs NUTRITION DIAGNOSIS: Increased kcal/prot needs R/T underweight status, wound healing as evidenced by pt @83% IBW w/ underweight BMI of 17.2, admitted w/ multiple wounds, including stage 4 sacral wound. CURRENT TF:Glucerna 1.2 @ 45ml/hr x 24 hrs ENTERAL NUTRITION RECOMMENDATIONS: Glucerna 1.2 @ 60ml/hr x 24 hrs to provide 1440ml, 1728kcal, 86g prot, 1159ml free water * Increase goal rate to 60ml/hr x 24 hrs to meet 100% est kcal/prot needs -> 1.9g prot/kg * HOB over 30 degrees/ water flush per MD * add Shen BID ADDITIONAL RECOMMENDATIONS: * Per SNF: HT=64" and GP=758# vs EMR wt of 147lbs -> rec daily calibrated bedscale wt * Wound healing: TF rec @ goal will provide 100% RDI Vit C 500mg BID, ZnSO4 220gm QD x 10 days Shen BID via PEG * Monitor BGs, consider NISS: h/o DM * Monitor lytes, replete as needed (5) Chronic respiratory failure requiring continuous mechanical ventilation through tracheostomy (6) History of intracranial hemorrhage (7) Idiopathic obstructive hydrocephalus (8) Gout (9) Diabetes mellitus (10) Parkinson's disease dementia (11) Acute on chronic respiratory failure (12) Chronic vegetative state (13) Severe protein-calorie malnutrition Assessment & Plan: DAILY ESTIMATED NEEDS: Needs based on Advanced wound, critical care, underweight, MONOTYPE MECHANIC TF/ 45.5kg 30-40 kcals/kg 6885-4393 total kcals 1.5-2 g protein/kg 68-91 g total protein 30-40 mL/kg 4634-1364 total fluid mLs NUTRITION DIAGNOSIS: Increased kcal/prot needs R/T underweight status, wound healing as evidenced by pt @83% IBW w/ underweight BMI of 17.2, admitted w/ multiple wounds, including stage 4 sacral wound. CURRENT TF:Glucerna 1.2 @ 60ml/hr x 24 hrs ENTERAL NUTRITION RECOMMENDATIONS: Glucerna 1.2 @ 60ml/hr x 24 hrs to provide 1440ml, 1728kcal, 86g prot, 1159ml free water * Maintain current TF rate as tolerated to meet 100% est kcal/prot needs -> 1.9g prot/kg. * HOB over 30 degrees/ water flush per MD * add Shen BID ADDITIONAL RECOMMENDATIONS: * Per SNF: HT=64" and VA=174# vs EMR wt of 147lbs -> Recalibrate bed scale for accurate CBW * Wound healing: TF rec @ goal will provide 100% RDI add Vit C 500mg BID, continue ZnSO4 220gm QD x 10 days Shen BID via PEG * Monitor BGs, consider NISS: h/o DM -> NISS now added * Increase water flushes for elevated Na (14) Hypercalcemia (15) Staphylococcus aureus bacteremia Assessment & Plan: unlikely related to wound checking often to ensure not worsening good local care being provided cont abx There is bilateral mostly upper lobe centrilobular emphysema. Mosaic attenuation pattern is seen throughout the bilateral upper lobes. There is consolidation and atelectasis of most of the left lower lobe. A few groundglass opacities are seen in the inferior left upper lobe. There is some compressive atelectasis at the right lung base with elevation of the right hemidiaphragm. There is a subpleural 8 mm nodular opacity in the right middle lobe. On recent abdomen pelvis CT scan, this demonstrated a cavity. The cavity is not evident currently There is a tracheostomy. The pleural spaces are clear. The heart size is normal. No pericardial effusion. No mediastinal or hilar mass or adenopathy. The ascending thoracic aorta is mildly ectatic, measuring up to 3.8 cm in diameter. The included portion of the thyroid is unremarkable. No axillary or chest wall mass or adenopathy demonstrated. There is smooth thoracic kyphosis without focal compression abnormality. The bones are unremarkable. Included upper abdominal anatomy demonstrates contrast in the colon from prior CT of the abdomen. There is a upper pole right renal cyst Impression: Centrilobular emphysema seen throughout both lungs with with an upper lobe predominance, indicating extensive COPD changes Mosaic attenuation pattern in the upper lobes probably related to COPD, although this is a nonspecific finding Dense consolidation and atelectasis of much of the left lower lobe. This could represent pneumonia. Groundglass opacities in the inferior left upper lobe. These could represent areas of acute inflammation, or could represent post inflammatory changes. 8mm nodule in the right middle lobe, also described on prior CT scan. This previously demonstrated a cavity. Cavitation currently not evident. Differential considerations include neoplasm, acute or chronic inflammatory lesion. Recommend at a minimum follow-up CT scan in 6 months Tracheostomy Kyphosis Right upper pole renal cyst Chris Hunter 30, 2020 13:07
[2020-03-27] MEDS: Acetaminophen 650mg/20.3ml GT PRN (13:26)
--- NOTE | 2020-03-27 13:30 | NUR ---
NURSE NOTES: Medications administered per order. Tylenol administered for mild pain based on FLACC score. Oral care and repositioning done. Will closely monitor the patient. Will continue plan of care.
--- NOTE | 2020-03-27 13:53 | Nephrology Progress Note ---
Assessment/Plan Problem List: (1) Hypercalcemia (2) Hypernatremia (3) Sepsis (4) UTI (urinary tract infection) (5) Stage 4 decubitus ulcer (6) Acute on chronic respiratory failure (7) Chronic vegetative state (8) Severe protein-calorie malnutrition Assessment Azotemia and hypernatremia indicative of severe dehydration and free water deficit Acute on chronic respiratory failure, on mechanical ventilation Severe underlying anemia Sepsis Stage IV decubitus Idiopathic obstructive hydrocephalus, history of intracranial hemorrhage Diabetes mellitus Parkinson's disease, dementia Protein calorie malnutrition Plan March 27: Medication list reviewed. Labs reviewed. Stable from renal sta ndpoint of view. March 26: Patient remains stable from renal standpoint of view. Labs and medication list reviewed. March 25: Labs reviewed. Renal parameters stable. Continue per consultants. March 24: Labs reviewed. Renal parameters stable. Continue per consultants. March 23: Labs reviewed. Renal parameters are stable. Continue per consultants. March 22: Labs reviewed. Serum sodium 151. D5W IV given. Continue per consultants. March 21: Labs reviewed. Renal parameters stable. Continue per consultants. March 20: Labs reviewed. Serum sodium lower 147. Serum calcium stable. Continue as is. March 19: Labs reviewed. Serum sodium unchanged at 150. Another liter of D5W ordered. Serum calcium stable. Continue as is. March 18: Labs reviewed. Serum sodium 150. 1 L of D5W IV ordered. Serum calcium stable. Continue as is. March 17: Labs reviewed. Renal parameters stable. Continue to watch serum calcium. Continue per consultants. March 16: Labs reviewed. Serum calcium stable. Medication list reviewed. Abnormal electrolyte addressed. Continue current management. March 15: Labs reviewed. Serum calcium lowering. Abnormal electrolytes addressed. Continue per consultants. March 14: Labs reviewed. Status quo. Serum calcium lowering. Magnesium and potassium supplement ordered. Continue per current treatment plan. March 13: 1 dose of pamidronate 60 mg for high calcium IV ordered. Labs reviewed. Medication list reviewed. Electrolytes improving. Hemoglobin higher after transfusion. Nasal calcitonin initiated March 12: D5W at 75 cc an hour Monitor electrolytes Monitor hemoglobin hematocrit Gastric support Consider transfusion Continue per orders Parameters for blood pressure medication Antibiotics per ID Subjective ROS Limited/Unobtainable: Yes Objective Objective Last 24 Hour Vital Signs Date Time Temp Pulse Resp B/P (MAP) Pulse Ox O2 Delivery O2 Flow Rate FiO2 03/27/20 13:25 109 129/77 03/27/20 12:00 99.5 109 20 129/77 (94) 100 03/27/20 12:00 112 03/27/20 12:00 35 03/27/20 12:00 Mechanical Ventilator 03/27/20 11:00 114 26 35 03/27/20 08:00 106 03/27/20 08:00 Mechanical Ventilator 03/27/20 08:00 35 03/27/20 08:00 98.8 109 20 126/62 (83) 100 03/27/20 07:05 104 25 35 03/27/20 05:12 99 103/56 03/27/20 04:00 99 03/27/20 04:00 98.2 99 20 103/56 (72) 100 03/27/20 04:00 35 03/27/20 04:00 Mechanical Ventilator 03/27/20 03:30 95 24 35 03/27/20 00:00 35 03/27/20 00:00 Mechanical Ventilator 03/27/20 00:00 98.2 93 20 105/63 (77) 100 03/27/20 00:00 93 03/26/20 22:41 94 20 35 03/26/20 21:14 100 112/66 03/26/20 20:00 35 03/26/20 20:00 Mechanical Ventilator 03/26/20 20:00 99.0 100 22 112/66 (81) 100 03/26/20 20:00 98 03/26/20 19:24 97 22 35 03/26/20 16:00 98.1 95 20 109/69 (82) 100 03/26/20 16:00 Mechanical Ventilator 03/26/20 16:00 98 03/26/20 16:00 35 03/26/20 14:50 98 25 35 Intake and Output 03/26/20 03/27/20 19:00 07:00 Intake Total 1408.25 ml 1035.0 ml Output Total 750 ml 550 ml Balance 658.25 ml 485.0 ml Free Water 110 ml IV Total 458.25 ml 465.0 ml Tube Feeding 840 ml 570 ml Output Urine Total 750 ml 550 ml # Bowel Movements 1 Current Medications Medications (Trade) Dose Ordered Sig/Zaki Route PRN Reason Start Time Stop Time Status Last Admin Dose Admin Acetaminophen (Tylenol) 650 mg Q6H PRN GT Temp >100.5, Mild Pain 03/11/20 06:30 04/10/20 06:29 03/27/20 13:26 Aspirin (ASA) 81 mg DAILY GT 03/11/20 09:00 04/25/20 08:59 03/18/20 08:35 Calcitonin [place] (Miacalcin) 1 sprays DAILY NASAL 03/13/20 11:00 06/11/20 10:59 03/27/20 09:13 Dextrose (Dextrose 50%) 25 ml Q30M PRN IV Hypoglycemia 03/13/20 23:30 06/11/20 23:29 Dextrose (Dextrose 50%) 50 ml Q30M PRN IV Hypoglycemia 03/13/20 23:30 06/11/20 23:29 Diltiazem HCl (Cardizem Tab) 30 mg EVERY 8 HOURS GT 03/24/20 14:00 04/23/20 13:59 03/27/20 13:25 Diphenhydramine HCl (Benadryl) 25 mg Q8H PRN ORAL Itching 03/14/20 15:00 04/13/20 14:59 03/14/20 15:50 Famotidine (Pepcid) 20 mg BID GT 03/18/20 18:00 06/09/20 08:59 03/27/20 09:12 Insulin Aspart (NovoLOG) Q6HR SUBQ 03/14/20 00:00 06/12/20 00:00 03/27/20 12:43 Levofloxacin 150 ml @ 150 mls/hr Q48H IVPB 03/22/20 09:00 03/29/20 08:59 03/26/20 09:14 Linezolid 300 ml @ 300 mls/hr Q12HR IVPB 03/22/20 13:00 03/29/20 12:59 03/27/20 09:13 Ondansetron HCl (Zofran) 4 mg Q4H PRN IVP Nausea & Vomiting 03/11/20 06:30 04/10/20 06:29 Piperacillin Sod/ Tazobactam Sod 3.375 gm/Sodium Chloride 110 ml @ 27.5 mls/hr EVERY 8 HOURS IVPB 03/17/20 22:00 03/31/20 21:59 03/27/20 13:25 Laboratory Tests 03/26/20 17:58: POC Whole Blood Glucose 159H 03/27/20 02:59: White Blood Count 16.6H, Red Blood Count 2.94L, Hemoglobin 7.9L, Hematocrit 23.8L, Mean Corpuscular Volume 81, Mean Corpuscular Hemoglobin 27.0, Mean Corpuscular Hemoglobin Concent 33.4, Red Cell Distribution Width 19.8H, Platelet Count 521H, Mean Platelet Volume 7.7, Neutrophils (%) (Auto) , Lymphocytes (%) (Auto) , Monocytes (%) (Auto) , Eosinophils (%) (Auto) , Basophils (%) (Auto) , Differential Total Cells Counted 100, Neutrophils % (Manual) 73, Lymphocytes % (Manual) 10L, Monocytes % (Manual) 7, Eosinophils % (Manual) 7H, Basophils % (Manual) 0, Myelocytes % 2H, Band Neutrophils 1, Platelet Estimate IncreasedH, Platelet Morphology Normal, Polychromasia Occasional, Anisocytosis 2+, Microcytosis 2+, Sodium Level 140, Potassium Level 4.3, Chloride Level 105, Carbon Dioxide Level 27, Blood Urea Nitrogen 17, Creatinine 0.8, Estimat Glomerular Filtration Rate > 60, Glucose Level 142H, Calcium Level 8.8 03/27/20 12:41: POC Whole Blood Glucose 152H Height (Feet): 5 Height (Inches): 5.00 Weight (Pounds): 147 General Appearance: no apparent distress EENT: other - Trach to vent Cardiovascular: tachycardia Respiratory/Chest: decreased breath sounds Abdomen: distended Mathew Huntley MD Mar 27, 2020 13:53
--- NOTE | 2020-03-27 14:00 | NUR ---
NURSE NOTES: Completed 1st step of NM Indium scan by CHRISTY Ramirez. The patient is stable at this time. Will continue plan of care.
--- NOTE | 2020-03-27 14:30 | NUR ---
NURSE NOTES: 24hr urine collection sent down to the lab per order. Will ask next shift nurse to follow up the result. Will continue plan of care.
--- NOTE | 2020-03-27 14:36 | Cardiac Electrophysiology PN ---
Assessment/Plan Assessment/Plan 1. MRSA bacteremia. Most recent blood culture from March 13, 2020 showed no growth. Echocardiogram showed ejection fraction of 60-65% with no clear vegetation. DEBBIE cancelled as family refused. On iv Abx. Indium scan pending 2. VDRF , status post tracheostomy.On 40% Fio2 3. Dysphagia, status post PEG placement. 4. History of intracranial hemorrhage. 5. COPD. 6. Diabetes. 7. Glaucoma. 8. Sacral decubitus stage IV. 9. Hypertension, on Cardizem 10. Transient SVT. On Cardizem 30 tid DW RN Subjective Subjective Off pressors on the Vent in sinus tach Fio2 35% and PEEP 5. Family refused DEBBIE. Had episodes of SVT lasting less than 20 seconds 03/23/20. Indium scan pending completion ( had first part today) Objective Last 24 Hour Vital Signs Date Time Temp Pulse Resp B/P (MAP) Pulse Ox O2 Delivery O2 Flow Rate FiO2 03/27/20 13:25 109 129/77 03/27/20 12:00 99.5 109 20 129/77 (94) 100 03/27/20 12:00 112 03/27/20 12:00 35 03/27/20 12:00 Mechanical Ventilator 03/27/20 11:00 114 26 35 03/27/20 08:00 106 03/27/20 08:00 Mechanical Ventilator 03/27/20 08:00 35 03/27/20 08:00 98.8 109 20 126/62 (83) 100 03/27/20 07:05 104 25 35 03/27/20 05:12 99 103/56 03/27/20 04:00 99 03/27/20 04:00 98.2 99 20 103/56 (72) 100 03/27/20 04:00 35 03/27/20 04:00 Mechanical Ventilator 03/27/20 03:30 95 24 35 03/27/20 00:00 35 03/27/20 00:00 Mechanical Ventilator 03/27/20 00:00 98.2 93 20 105/63 (77) 100 03/27/20 00:00 93 03/26/20 22:41 94 20 35 03/26/20 21:14 100 112/66 03/26/20 20:00 35 03/26/20 20:00 Mechanical Ventilator 11/29/20 20:00 99.0 100 22 112/66 (81) 100 03/26/20 20:00 98 03/26/20 19:24 97 22 35 03/26/20 16:00 98.1 95 20 109/69 (82) 100 03/26/20 16:00 Mechanical Ventilator 03/26/20 16:00 98 03/26/20 16:00 35 03/26/20 14:50 98 25 35 Intake and Output 03/26/20 03/27/20 19:00 07:00 Intake Total 1408.25 ml 1035.0 ml Output Total 750 ml 550 ml Balance 658.25 ml 485.0 ml Free Water 110 ml IV Total 458.25 ml 465.0 ml Tube Feeding 840 ml 570 ml Output Urine Total 750 ml 550 ml # Bowel Movements 1 Laboratory Tests Test 03/26/20 17:58 03/27/20 02:59 03/27/20 12:41 POC Whole Blood Glucose 159 MG/DL (74-106) H 152 MG/DL (74-106) H White Blood Count 16.6 K/UL (4.8-10.8) H Red Blood Count 2.94 M/UL (4.20-5.40) L Hemoglobin 7.9 G/DL (12.0-16.0) L Hematocrit 23.8 % (37.0-47.0) L Mean Corpuscular Volume 81 FL (80-99) Mean Corpuscular Hemoglobin 27.0 PG (27.0-31.0) Mean Corpuscular Hemoglobin Concent 33.4 G/DL (32.0-36.0) Red Cell Distribution Width 19.8 % (11.6-14.8) H Platelet Count 521 K/UL (150-450) H Mean Platelet Volume 7.7 FL (6.5-10.1) Neutrophils (%) (Auto) % (45.0-75.0) Lymphocytes (%) (Auto) % (20.0-45.0) Monocytes (%) (Auto) % (1.0-10.0) Eosinophils (%) (Auto) % (0.0-3.0) Basophils (%) (Auto) % (0.0-2.0) Differential Total Cells Counted 100 Neutrophils % (Manual) 73 % (45-75) Lymphocytes % (Manual) 10 % (20-45) L Monocytes % (Manual) 7 % (1-10) Eosinophils % (Manual) 7 % (0-3) H Basophils % (Manual) 0 % (0-2) Myelocytes % 2 % (0-0) H Band Neutrophils 1 % (0-8) Platelet Estimate Increased H Platelet Morphology Normal Polychromasia Occasional Anisocytosis 2+ Microcytosis 2+ Sodium Level 140 MMOL/L (136-145) Potassium Level 4.3 MMOL/L (3.5-5.1) Chloride Level 105 MMOL/L (98-107) Carbon Dioxide Level 27 MMOL/L (21-32) Blood Urea Nitrogen 17 mg/dL (7-18) Creatinine 0.8 MG/DL (0.55-1.30) Estimat Glomerular Filtration Rate > 60 mL/min (>60) Glucose Level 142 MG/DL (74-106) H Calcium Level 8.8 MG/DL (8.5-10.1) Objective HEAD AND NECK: No JVD. LUNGS: Coarse rhonchi. Status post tracheostomy. CARDIOVASCULAR: Regular S1 and S2 with no gallop or rub. Status post PEG. EXTREMITIES: 1+ pitting edema with sacral decubitus. Shay Alejandre MD Mar 27, 2020 14:36
--- NOTE | 2020-03-27 14:53 | NUR ---
CASE MANAGEMENT:REVIEW 03/27/20 SI: MRSA SEPSIS TRACH/VENT/GT DEPENDENT 99.5 114 26 129/77 100% ON VENT SUPPORT 35% FIO2 WBC+16.6 H/H-7.9/23.8 IS: IV LINEZOLID Q12 IV LEVAQUIN Q48 IV ZOSYN Q8HRS CARDIZEM GT Q8HRS : STEP DOWN UNIT DCP: FROM [facility]
--- NOTE | 2020-03-27 14:57 | NUR ---
NURSE NOTES:Pt presented with trach,contractures, multiple Pressure injuries in various stages.Skin assessed under collar of trach and no skin breakdown evident. Full thickness Sacral Pressure injury with undermining clockwise 6-9o'clock.Wound is irregular shaped.Base of wound is 95% granular,5% slough at undermined borders.Small area of bone exposure noted at base of wound. Small amt serosanguineous exudate noted. No odor noted. An area of slough noted along borders. Edges are otherwise adherent and flat to base of wound with surrounding dry, darker skin tone.(L)11.2cm x (W)-8.7cm x(D)1.6cm ,undermining clockwise 6-9o'clock by 1.8cm @8o'clock. Partial thickness Pressure injury noted to R ischium. Base of wound is moist ,viable with surrounding shearing and non-blanchable erythema.(L)6.5cm x (W)4.5cm. Partial thickness Pressure injury L Ischium(L)1.2cm x (W)1.5cm. Base of wound is moist and viable with surrounding non-blanchable erythema with additional shearing. Resolving Pressure Injury medial L Knee. Base of wound is pink and dry . Resolving Pressure injury medial R knee. Dry pink epithelial with scattered moist, granular areas within base of wound.No odor or exudate noted.(L)4.3cm x (W)2.6cm. DTPI L lateral Malleolus(L)2.5cm x (W)3.5cm.Base of Pressure injury is indurated and maroon in colour. Non-Blanchable erythema periwound. DTPI L achilles extending into Plantar aspect of L heel(L)9.7cm x (W)10.4cm. Base of Pressure injury is black at achilles area with scattered purpuric areas, and is otherwise maroon and indurated. Resolving Pressure injury medial R Malleolus. Govan epithelial at base of wound. Stable dry eschar noted to R Hallux (L)1.2cm x (W01.3cm. Periwound skin tone is darker without erythema or induration. Tx.Plan: Cleanse Sacral wound with Saline. Loosely pack with Therahoney impregnated Kerlix(Attention to undermined area). Apply Moisture Barrier Periwound. Cover with Optifoam drsg. Change Daily and prn. Apply Moisture Barrier Paste to R and L Ischial wounds. Cover each site with Optifoam drsg. Change every 3 days and prn. Apply Cavilon Skin Barrier to medial aspects of R and L Knee. Cover each wound with Optifoam drsg.Change every 7 days and prn. Apply Cavilon Skin Barrier to R Hallux, R Heel, R and L Malleoli, and Both heels. Cover each affected area with Optifoam drsgs. Change drsgs every 7 days and prn. Reposition at least every [address] Pillow between Knees. Off-load heels with Pillow.
[2020-03-27 16:00] VITALS: BP 123/80
--- NOTE | 2020-03-27 16:00 | NUR ---
NURSE NOTES: BM noted. Bed bath given to the patient. The patient tolerated well. Tolerating tube feeding and vent setting well. Will closely monitor the patient. Will continue plan of care.
--- NOTE | 2020-03-27 16:38 | Pulmonolgy Critical Care Note ---
Critical Care - Asmt/Plan Problems: (1) Persistent fever (2) Acute on chronic respiratory failure (3) Staphylococcus aureus bacteremia (4) Sepsis (5) Chronic respiratory failure requiring continuous mechanical ventilation through tracheostomy (6) Stage 4 decubitus ulcer (7) Diabetes mellitus (8) Parkinson's disease dementia (9) Gout (10) Idiopathic obstructive hydrocephalus (11) Severe protein-calorie malnutrition (12) History of intracranial hemorrhage (13) Chronic vegetative state Respiratory: monitor respiratory rate, adjust FIO2, CXR Cardiac: continue pressors, continue to monitor HR/BP Renal: F/U I&O, keep IV fluid Infectious Disease: check cultures Gastrointestinal: continue feedings/current rate Endocrine: monitor blood sugar, continue sliding scale insulin Hematologic: transfuse if hgb<8.5 Neurologic: PRN Ativan, keep patient comfortable Prophylaxis: Protonix, Heparin Notes Reviewed: employee representative, cardio, renal Discussed with: consultants Critical Care - Objective Last 24 Hour Vital Signs Date Time Temp Pulse Resp B/P (MAP) Pulse Ox O2 Delivery O2 Flow Rate FiO2 03/27/20 13:25 109 129/77 03/27/20 12:00 99.5 109 20 129/77 (94) 100 03/27/20 12:00 112 03/27/20 12:00 35 03/27/20 12:00 Mechanical Ventilator 03/27/20 11:00 114 26 35 03/27/20 08:00 106 03/27/20 08:00 Mechanical Ventilator 03/27/20 08:00 35 03/27/20 08:00 98.8 109 20 126/62 (83) 100 03/27/20 07:05 104 25 35 03/27/20 05:12 99 103/56 03/27/20 04:00 99 03/27/20 04:00 98.2 99 20 103/56 (72) 100 03/27/20 04:00 35 03/27/20 04:00 Mechanical Ventilator 03/27/20 03:30 95 24 35 03/27/20 00:00 35 03/27/20 00:00 Mechanical Ventilator 03/27/20 00:00 98.2 93 20 105/63 (77) 100 03/27/20 00:00 93 03/26/20 22:41 94 20 35 03/26/20 21:14 100 112/66 03/26/20 20:00 35 03/26/20 20:00 Mechanical Ventilator 03/26/20 20:00 99.0 100 22 112/66 (81) 100 03/26/20 20:00 98 03/26/20 19:24 97 22 35 Status: awake Condition: critical HEENT: atraumatic Lungs: clear Heart: HR/BP stable, HR/BP unstable Abdomen: soft, non-tender, feeding tube Extremities: no C/C/E, edema Accucheck: 152 Critical Care - Subjective ROS Limited/Unobtainable: Yes Condition: critical EKG Rhythm: Sinus Tachycardia FI02: 35 Vent Support Breath Rate: 16 Vent Support Mode: AC Vent Tidal Volume: 400 Sputum Amount: Small PEEP: 5.0 PIP: 16 Tube Feeding Amount: 70 I&O: Intake and Output 03/26/20 03/27/20 19:00 07:00 Intake Total 1408.25 ml 1035.0 ml Output Total 750 ml 550 ml Balance 658.25 ml 485.0 ml Free Water 110 ml IV Total 458.25 ml 465.0 ml Tube Feeding 840 ml 570 ml Output Urine Total 750 ml 550 ml # Bowel Movements 1 Labs: Laboratory Tests Test 03/26/20 17:58 03/27/20 02:59 03/27/20 12:41 POC Whole Blood Glucose 159 MG/DL (74-106) H 152 MG/DL (74-106) H White Blood Count 16.6 K/UL (4.8-10.8) H Red Blood Count 2.94 M/UL (4.20-5.40) L Hemoglobin 7.9 G/DL (12.0-16.0) L Hematocrit 23.8 % (37.0-47.0) L Mean Corpuscular Volume 81 FL (80-99) Mean Corpuscular Hemoglobin 27.0 PG (27.0-31.0) Mean Corpuscular Hemoglobin Concent 33.4 G/DL (32.0-36.0) Red Cell Distribution Width 19.8 % (11.6-14.8) H Platelet Count 521 K/UL (150-450) H Mean Platelet Volume 7.7 FL (6.5-10.1) Neutrophils (%) (Auto) % (45.0-75.0) Lymphocytes (%) (Auto) % (20.0-45.0) Monocytes (%) (Auto) % (1.0-10.0) Eosinophils (%) (Auto) % (0.0-3.0) Basophils (%) (Auto) % (0.0-2.0) Differential Total Cells Counted 100 Neutrophils % (Manual) 73 % (45-75) Lymphocytes % (Manual) 10 % (20-45) L Monocytes % (Manual) 7 % (1-10) Eosinophils % (Manual) 7 % (0-3) H Basophils % (Manual) 0 % (0-2) Myelocytes % 2 % (0-0) H Band Neutrophils 1 % (0-8) Platelet Estimate Increased H Platelet Morphology Normal Polychromasia Occasional Anisocytosis 2+ Microcytosis 2+ Sodium Level 140 MMOL/L (136-145) Potassium Level 4.3 MMOL/L (3.5-5.1) Chloride Level 105 MMOL/L (98-107) Carbon Dioxide Level 27 MMOL/L (21-32) Blood Urea Nitrogen 17 mg/dL (7-18) Creatinine 0.8 MG/DL (0.55-1.30) Estimat Glomerular Filtration Rate > 60 mL/min (>60) Glucose Level 142 MG/DL (74-106) H Calcium Level 8.8 MG/DL (8.5-10.1) Patti Matta MD Mar 27, 2020 16:38
--- NOTE | 2020-03-27 18:00 | NUR ---
NURSE NOTES: BS 143 noted. Novolog administered per protocol. The patient is resting on the bed comfortably without acute distress or shortness of breath. Will closely monitor the patient. Will continue plan of care.
--- NOTE | 2020-03-27 19:10 | NUR ---
NURSE NOTES: Received report from Cynthia carter RN. Pt obtunded. Opens eyes but without tracking. Respirations even and unlabored. No distress noted. SR on desk monitor. Tolerating vent setting of AC 16, TV 400, FiO2 35%, PEEP 5 and saturating 100%. Peripheral IV in R wrist 22G is intact and patent. Gtube feeding running Glucerna 1.2 @ 70cc/hr. Collier cath draining well of hazy light arminda urine. VSS afebrile. Bed locked in lowest position, bed alarm engaged, call light is within reach. HOB at 45 degrees. Will continue POC
--- NOTE | 2020-03-27 19:12 | Internal Med Progress Note ---
Subjective Date of Service: Mar 27, 2020 Physician Name JennPiyush Attending Physician Jesus Lutz MD Current Medications Medications (Trade) Dose Ordered Sig/Zaki Route PRN Reason Start Time Stop Time Status Last Admin Dose Admin Acetaminophen (Tylenol) 650 mg Q6H PRN GT Temp >100.5, Mild Pain 03/11/20 06:30 04/10/20 06:29 03/27/20 13:26 Aspirin (ASA) 81 mg DAILY GT 03/11/20 09:00 04/25/20 08:59 03/18/20 08:35 Calcitonin [place] (Miacalcin) 1 sprays DAILY NASAL 03/13/20 11:00 06/11/20 10:59 03/27/20 09:13 Dextrose (Dextrose 50%) 25 ml Q30M PRN IV Hypoglycemia 03/13/20 23:30 06/11/20 23:29 Dextrose (Dextrose 50%) 50 ml Q30M PRN IV Hypoglycemia 03/13/20 23:30 06/11/20 23:29 Diltiazem HCl (Cardizem Tab) 30 mg EVERY 8 HOURS GT 03/24/20 14:00 04/23/20 13:59 03/27/20 13:25 Diphenhydramine HCl (Benadryl) 25 mg Q8H PRN ORAL Itching 03/14/20 15:00 04/13/20 14:59 03/14/20 15:50 Famotidine (Pepcid) 20 mg BID GT 03/18/20 18:00 06/09/20 08:59 03/27/20 18:04 Insulin Aspart (NovoLOG) Q6HR SUBQ 03/14/20 00:00 06/12/20 00:00 03/27/20 18:06 Levofloxacin 150 ml @ 150 mls/hr Q48H IVPB 03/22/20 09:00 03/29/20 08:59 03/26/20 09:14 Linezolid 300 ml @ 300 mls/hr Q12HR IVPB 03/22/20 13:00 03/29/20 12:59 03/27/20 09:13 Ondansetron HCl (Zofran) 4 mg Q4H PRN IVP Nausea & Vomiting 03/11/20 06:30 04/10/20 06:29 Piperacillin Sod/ Tazobactam Sod 3.375 gm/Sodium Chloride 110 ml @ 27.5 mls/hr EVERY 8 HOURS IVPB 03/17/20 22:00 03/31/20 21:59 03/27/20 13:25 Allergies: Coded Allergies: No Known Allergies (Unverified , 03/11/20) ROS Limited/Unobtainable: Yes Subjective 74 YO F trach dependent admitted with hypoxic respiratory failure. Now pneumonia and sepsis. Cover for Int Med-Dr Lutz. Step down unit. Objective Last Vital Signs Date Time Temp Pulse Resp B/P (MAP) Pulse Ox O2 Delivery O2 Flow Rate FiO2 03/27/20 16:00 97.7 96 20 123/80 (94) 100 03/27/20 16:00 35 03/27/20 16:00 Mechanical Ventilator Laboratory Tests Test 03/27/20 02:59 03/27/20 12:41 03/27/20 16:47 White Blood Count 16.6 K/UL (4.8-10.8) H Red Blood Count 2.94 M/UL (4.20-5.40) L Hemoglobin 7.9 G/DL (12.0-16.0) L Hematocrit 23.8 % (37.0-47.0) L Mean Corpuscular Volume 81 FL (80-99) Mean Corpuscular Hemoglobin 27.0 PG (27.0-31.0) Mean Corpuscular Hemoglobin Concent 33.4 G/DL (32.0-36.0) Red Cell Distribution Width 19.8 % (11.6-14.8) H Platelet Count 521 K/UL (150-450) H Mean Platelet Volume 7.7 FL (6.5-10.1) Neutrophils (%) (Auto) % (45.0-75.0) Lymphocytes (%) (Auto) % (20.0-45.0) Monocytes (%) (Auto) % (1.0-10.0) Eosinophils (%) (Auto) % (0.0-3.0) Basophils (%) (Auto) % (0.0-2.0) Differential Total Cells Counted 100 Neutrophils % (Manual) 73 % (45-75) Lymphocytes % (Manual) 10 % (20-45) L Monocytes % (Manual) 7 % (1-10) Eosinophils % (Manual) 7 % (0-3) H Basophils % (Manual) 0 % (0-2) Myelocytes % 2 % (0-0) H Band Neutrophils 1 % (0-8) Platelet Estimate Increased H Platelet Morphology Normal Polychromasia Occasional Anisocytosis 2+ Microcytosis 2+ Sodium Level 140 MMOL/L (136-145) Potassium Level 4.3 MMOL/L (3.5-5.1) Chloride Level 105 MMOL/L (98-107) Carbon Dioxide Level 27 MMOL/L (21-32) Blood Urea Nitrogen 17 mg/dL (7-18) Creatinine 0.8 MG/DL (0.55-1.30) Estimat Glomerular Filtration Rate > 60 mL/min (>60) Glucose Level 142 MG/DL (74-106) H Calcium Level 8.8 MG/DL (8.5-10.1) POC Whole Blood Glucose 152 MG/DL (74-106) H 143 MG/DL (74-106) H Intake and Output 03/26/20 03/27/20 19:00 07:00 Intake Total 1408.25 ml 1155.0 ml Output Total 750 ml 550 ml Balance 658.25 ml 605.0 ml Free Water 110 ml 50 ml IV Total 458.25 ml 465.0 ml Tube Feeding 840 ml 640 ml Output Urine Total 750 ml 550 ml # Bowel Movements 1 Objective PHYSICAL EXAMINATION: GENERAL: The patient is a thin-appearing female who is intubated and nonverbal. HEENT: Eyes, pupils are equal and responsive to light and accommodation. Extraocular movements are intact. NECK: Supple without lymphadenopathy. Tracheostomy is in place. CHEST: Mech vent; Diffuse wheezes bilaterally without rhonchi. CARDIOVASCULAR: Tachycardic, regular rhythm. S1, S2 are normal without murmurs, rubs, or gallops. ABDOMEN: Soft, nontender, and nondistended. Positive bowel sounds. No evidence of hepatosplenomegaly. Currently, no rebound or guarding noted. EXTREMITIES: Negative for clubbing, cyanosis, or edema. RECTAL/GENITAL: Not performed. NEUROLOGIC: Unable to assess. chest x-ray revealed left lower lobe consolidation consistent with pneumonia Assessment/Plan Assessment/Plan ASSESSMENT: This is a 74-year-old female. 1. Left lower lobe pneumonia. 2. Respiratory failure. 3. Hypernatremia. 4. Renal failure. 5. Hypoxemia. 6. Tracheostomy dependence. 7. Chronic obstructive pulmonary disease. 8. Diabetes type 2. 9. Parkinson disease. 10. Gout. 11. Glaucoma. 12. Sacral decubitus ulcer stage IV. 13. History of intracranial hemorrhage. 14. Hydrocephalus. 15. sepsis=MRSA 16. UTI=MDR acenitobacter TREATMENT: 1. Left lower lobe pneumonia/respiratory failure/sepsis. Pulmonary consultation =Dr. Patti Matta. ABX= continue linezolid, zosyn and levaquin. S/P vanco-see ID note Infectious disease=Dr. Villegas. We will follow recommendations of Infectious Disease and Pulmonary. 2. Hypernatremia. Hypernatremia may be secondary to renal failure versus dehydration. Nephrology consultation =. 3. Renal failure nephrology consultation =Dr. Huntley. 4. Tracheostomy dependence. 5. Chronic obstructive pulmonary disease. 6. Diabetes type 2. NovoLog sliding scale has been instituted. 7. Parkinson disease. 8. Gout. Continue allopurinol as above. 9. Glaucoma. 10. Sacral decubitus ulcer stage IV. A general surgery consultation has been obtained with Dr. Chris Hunter. 11. History of intracranial hemorrhage. 12. DEBBIE refused by patient's daughter; cardiology=Trista Alejandre and Rachel 13. Await indium scan Piyush Barajas MD Mar 27, 2020 19:12
--- NOTE | 2020-03-27 19:30 | NUR ---
NURSE HAND-OFF REPORT: Important Events on Shift: NM Indium scan started, 24hr urine collection sent down to the lab, Hgb 7.9_ Dr. Matta notified_ No transfusion per order w/ Hgb goal of 7 Patient Status: Stable, Full code Diet: GTF Glucerna 1.2 @ 70mL/hr Pending Orders: NM Indium scan second part Pending Results/Labs: 24hr urine result Pending MD notification: N Latest Vital Signs: Temperature 97.7 , Pulse 103 , B/P 123 /80 , Respiratory Rate 25 , O2 SAT 100 , Mechanical Ventilator, O2 Flow Rate . Vital Sign Comment: Stable EKG Rhythm: Sinus Rhythm Rhythm change?: N MD Notified?: Y Gino Alejandre MD Response: Latest Ochoa Fall Score: 50 Fall Risk: High Risk Safety Measures: Call light Within Reach, Bed Alarm Zone 2, Side Rails Side Rails x3, Bed position Low and Locked. Fall Precautions: Yellow Socks Yellow Gown Door Sign Patient Fall Education Report given to ADILENE Noonan. The patient is stable at this time. Endorsed plan of care.
[2020-03-27 20:00] VITALS: BP 118/67
--- NOTE | 2020-03-27 23:31 | General Progress Note ---
Subjective Allergies: Coded Allergies: No Known Allergies (Unverified , 03/11/20) Subjective above noted tolerating TF 24 hour urine noted Objective Last 24 Hour Vital Signs Date Time Temp Pulse Resp B/P (MAP) Pulse Ox O2 Delivery O2 Flow Rate FiO2 03/27/20 23:16 67 23 35 03/27/20 21:33 97 118/67 03/27/20 20:00 97 03/27/20 20:00 97.9 99 23 118/67 (84) 100 03/27/20 19:54 35 03/27/20 19:53 Mechanical Ventilator 03/27/20 19:23 103 25 35 03/27/20 16:00 97.7 96 20 123/80 (94) 100 03/27/20 16:00 35 03/27/20 16:00 Mechanical Ventilator 03/27/20 16:00 100 03/27/20 15:00 95 17 35 03/27/20 13:25 109 129/77 03/27/20 12:00 99.5 109 20 129/77 (94) 100 03/27/20 12:00 112 03/27/20 12:00 35 03/27/20 12:00 Mechanical Ventilator 03/27/20 11:00 114 26 35 03/27/20 08:00 106 03/27/20 08:00 Mechanical Ventilator 03/27/20 08:00 35 03/27/20 08:00 98.8 109 20 126/62 (83) 100 03/27/20 07:05 104 25 35 03/27/20 05:12 99 103/56 03/27/20 04:00 99 03/27/20 04:00 98.2 99 20 103/56 (72) 100 03/27/20 04:00 35 03/27/20 04:00 Mechanical Ventilator 03/27/20 03:30 95 24 35 03/27/20 00:00 35 03/27/20 00:00 Mechanical Ventilator 03/27/20 00:00 98.2 93 20 105/63 (77) 100 03/27/20 00:00 93 Intake and Output 03/26/20 03/27/20 19:00 07:00 Intake Total 1408.25 ml 1155.0 ml Output Total 750 ml 550 ml Balance 658.25 ml 605.0 ml Free Water 110 ml 50 ml IV Total 458.25 ml 465.0 ml Tube Feeding 840 ml 640 ml Output Urine Total 750 ml 550 ml # Bowel Movements 1 Laboratory Tests 03/27/20 02:59: White Blood Count 16.6H, Red Blood Count 2.94L, Hemoglobin 7.9L, Hematocrit 23.8L, Mean Corpuscular Volume 81, Mean Corpuscular Hemoglobin 27.0, Mean Corpuscular Hemoglobin Concent 33.4, Red Cell Distribution Width 19.8H, Platelet Count 521H, Mean Platelet Volume 7.7, Neutrophils (%) (Auto) , Lymphocytes (%) (Auto) , Monocytes (%) (Auto) , Eosinophils (%) (Auto) , Basophils (%) (Auto) , Differential Total Cells Counted 100, Neutrophils % (Manual) 73, Lymphocytes % (Manual) 10L, Monocytes % (Manual) 7, Eosinophils % (Manual) 7H, Basophils % (Manual) 0, Myelocytes % 2H, Band Neutrophils 1, Platelet Estimate IncreasedH, Platelet Morphology Normal, Polychromasia Occasional, Anisocytosis 2+, Microcy tosis 2+, Sodium Level 140, Potassium Level 4.3, Chloride Level 105, Carbon Dioxide Level 27, Blood Urea Nitrogen 17, Creatinine 0.8, Estimat Glomerular Filtration Rate > 60, Glucose Level 142H, Calcium Level 8.8 03/27/20 12:41: POC Whole Blood Glucose 152H 03/27/20 16:47: POC Whole Blood Glucose 143H Height (Feet): 5 Height (Inches): 5.00 Weight (Pounds): 147 Objective elderly woman NCAT supple, trach CTA RR abd soft, (+)GT no edema (+) multiple decubs Assessment/Plan Assessment/Plan: Assessment History of intracranial hemorrhage, s/p gastrostomy, OB (+) stools status post tracheostomy, chronic obstructive pulmonary disease, type 2 diabetes, Parkinson's, gout, glaucoma, history of stage IV sacral decubitus ulceration, gout Fever Low albumin Recommendations - continue TF - advance rate to 80 - GT care - elevate HOB - Monitor H&H - no GI w/u per family decision - re check albumin and prealbumin periodically Deanne Rivera MD Mar 27, 2020 23:31
[2020-03-28] VITALS: BP 105/56
--- NOTE | 2020-03-28 | NUR ---
NURSE NOTES: Sleeping off and on. VSS Afebrile. SR on ekg monitor tech. Respiration even and unlabored. No distress noted.
[2020-03-28 04:00] VITALS: BP 124/67
--- NOTE | 2020-03-28 04:00 | NUR ---
NURSE NOTES: Sleeping off and on. Condition unchanged. VSS Afebrile. SR on hall monitor. Respiration even and unlabored. No distress noted.
[2020-03-28 04:52] LABS: BASOPHILS % (AUTO) 0.8 % (0.0-2.0); EOSINOPHILS % (AUTO) 7.3 % (0.0-3.0); HEMATOCRIT 25.4 % (37.0-47.0); HEMOGLOBIN 8.5 G/DL (12.0-16.0); LYMPHOCYTES % (AUTO) 9.6 % (20.0-45.0); MEAN CORPUSCULAR VOLUME 81 FL (80-99); NEUTROPHILS % (AUTO) 78.3 % (45.0-75.0); PLATELET COUNT 534 K/UL (150-450); RED BLOOD COUNT 3.14 M/UL (4.20-5.40); RED CELL DISTRIBUTION WIDTH 19.2 % (11.6-14.8); WHITE BLOOD COUNT 16.6 K/UL (4.8-10.8)
[2020-03-28 05:07] LABS: ANION GAP 8 mmol/L (5-15); BLOOD UREA NITROGEN 15 mg/dL (7-18); CARBON DIOXIDE 27 MMOL/L (21-32); CHLORIDE 105 MMOL/L (98-107); CREATININE 0.8 MG/DL (0.55-1.30); POTASSIUM 4.2 MMOL/L (3.5-5.1); SODIUM 140 MMOL/L (136-145)
[2020-03-28] MEDS: dilTIAZem HCl 30mg tab GT SCH ×3 (05:07→22:00)
[2020-03-28] MEDS: Piperacillin/Tazobactam 3.375 GM in NS 110 ML IVPB SCH (05:08)
[2020-03-28] MEDS: NovoLOG Insulin Flexpen SUBQ SCH ×4 (05:08→23:36)
--- NOTE | 2020-03-28 07:51 | NUR ---
NURSE NOTES: Received report from ADILENE Noonan. Patient is on bed sleeping, no signs of grimacing and distress noted. Patient is on GT patent, intact, and running Glucerna 1.2 at 70cc/hr, tolerating well. Patient is on trach-vent with settings of AC16, Vt 400, FiO2 35%, PEEP 5, tolerating well. Patient has a L wrist IV 20 g, patent, intact, Zosyn running. HOB is elevated, at lowest positions, side rails up, and call light within reach. Patient will continue to be monitored.
[2020-03-28 08:00] VITALS: BP 117/69
--- NOTE | 2020-03-28 08:08 | Infectious Diseases Prog Note ---
Assessment/Plan 74yo F with: Febrile, persistent Leukocytosis, persistent Thrombocytosis, increasing >> improving Sepsis Left lower lung infiltrate Acute on chronic resp failure SP trach MRSA bacteremia DEBBIE cancelled as family refused RML cavitation, not seen on CT chest 03/11 BCx +MRSA Resp cx +PsA (S-Zosyn, I-merissa and cefepime) UCx 30-40k ACB (colonizer) COVID rapid Ag neg CXR: Midline tracheostomy. Small left pleural effusion. Hyperinflation with flattening of the diaphragms and emphysema, consistent with COPD. No lobar infiltrate. 03/12 BCx NTD 03/13 C.dif neg 03/13 BCx NTD 03/14 BCx NTD 03/14 CT A/P: 1. Sacrococcygeal decubitus ulcers with associated osteomyelitis. 2. Small left pleural effusion. Left lower lobe atelectasis. 3. Bladder wall thickening. Foci of gas in the bladder. Correlate for recent instrumentation versus cystitis. Lung bases: Small nodular focus of cavitation in the right middle lobe. This may be secondary to infection. Recommend continued follow-up. Emphysematous changes in the lung bases. 1.2 cm nodular focus with some central cavitation in the right middle lobe. Pleural space: Small left pleural effusion. Left lower lobe atelectasis. 03/14 TTE: No vegetations, thickened valves 03/17 CXR: 1. Unchanged tracheostomy. 2. Mildly more pronounced linear interstitial prominence could represent atypical infection or interstitial pulmonary edema in the proper clinical context. 3. Unchanged hyperinflation. 4. Unchanged mild retrocardiac atelectasis without or with consolidation. 03/20 BCx NTD 03/20 CT chest: Centrilobular emphysema seen throughout both lungs with with an upper lobe predominance, indicating extensive COPD changes. Mosaic attenuation pattern in the upper lobes probably related to COPD, although this is a nonspecific finding. Dense consolidation and atelectasis of much of the left lower lobe. This could represent pneumonia. Groundglass opacities in the inferior left upper lobe. These could represent areas of acute inflammation, or could represent post inflammatory changes. 8mm nodule in the right middle lobe, also described on prior CT scan. This previously demonstrated a cavity. Cavitation currently not evident. Differential considerations include neoplasm, acute or chronic inflammatory lesion. Recommend at a minimum follow-up CT scan in 6 months 03/21 Resp cx +Serratia and PsA (S-Zosyn) 03/21 SPC changed 03/22 UA/UCx +yeast BUE and BLE neg for DVT 03/21 MRSA nares positive VDRF S/p trach/PEG Bed bound Sacral decub ulceration w/ underlying OM Plan: Stop Zosyn #10/10 for broader coverage given ongoing fever, increasing WBC, pna (PsA in resp cx I-merissa) Cont levofloxacin #6/7 to cover for prior found ACB in UCx given ongoing fevers Cont Zyvox #6, for MRSA bacteremia, duration TBD 03/28 SP Zosyn #10 for pna 03/22 Sp IV vancomycin #11 03/14 SP cefepime #4 Tagged WBC scan, f/u results, today is day 2 of 3 of scan Appreciate Wound Care/Surgery input on worsening sacral decub Agree with hospice evaluation if family decides Given ongoing fevers, high platelets, slow to improve leukocytosis, high s/f undiagnosed endocarditis, c/w aortic root abscess given ongoing fevers. DEBBIE would be helpful for diagnosis - EKG w/ AR interval 110, wnl - Consider cardiac MRI vs PET vs tagged WBC if ongoing fevers and pt not definitively going w/ hospice Trend WBC Trend plts Trend temp curve Monitor CBC/CMP Monitor temp curve, hemodynamics Monitor resp status D/w RN Thank you for this consult. [facility] will continue to follow. Subjective Allergies: Coded Allergies: No Known Allergies (Unverified , 03/11/20) Tmax 99.5, improved WBC 16, stable Plts 530s, stable NAD on vent Soft stools Objective Last 24 Hour Vital Signs Date Time Temp Pulse Resp B/P (MAP) Pulse Ox O2 Delivery O2 Flow Rate FiO2 03/28/20 05:07 100 124/67 03/28/20 04:00 99.5 100 20 124/67 (86) 100 03/28/20 04:00 Mechanical Ventilator 03/28/20 04:00 99 03/28/20 03:30 35 03/28/20 03:02 98 21 35 03/28/20 00:00 Mechanical Ventilator 03/28/20 00:00 98.4 90 24 105/56 (72) 100 03/28/20 00:00 90 03/27/20 23:37 35 03/27/20 23:16 67 23 35 03/27/20 21:33 97 118/67 03/27/20 20:00 97 03/27/20 20:00 97.9 99 23 118/67 (84) 100 03/27/20 19:54 35 03/27/20 19:53 Mechanical Ventilator 03/27/20 19:23 103 25 35 03/27/20 16:00 97.7 96 20 123/80 (94) 100 03/27/20 16:00 35 03/27/20 16:00 Mechanical Ventilator 03/27/20 16:00 100 03/27/20 15:00 95 17 35 03/27/20 13:25 109 129/77 03/27/20 12:00 99.5 109 20 129/77 (94) 100 03/27/20 12:00 112 03/27/20 12:00 35 03/27/20 12:00 Mechanical Ventilator 03/27/20 11:00 114 26 35 Height (Feet): 5 Height (Inches): 5.00 Weight (Pounds): 147 Gen: NAD in bed HEENT: NCAT, trach + secretions CV: RRR Pulm: CTAB Abd: Soft, NTND, +PEG +SPC Ext: No c/c/e Skin: Stage 4 sacral decub ulceration, clean Neuro: Awake, not interactive Laboratory Tests Test 03/27/20 12:41 03/27/20 16:47 03/28/20 03:16 POC Whole Blood Glucose 152 MG/DL (74-106) H 143 MG/DL (74-106) H White Blood Count 16.6 K/UL (4.8-10.8) H Red Blood Count 3.14 M/UL (4.20-5.40) L Hemoglobin 8.5 G/DL (12.0-16.0) L Hematocrit 25.4 % (37.0-47.0) L Mean Corpuscular Volume 81 FL (80-99) Mean Corpuscular Hemoglobin 27.1 PG (27.0-31.0) Mean Corpuscular Hemoglobin Concent 33.5 G/DL (32.0-36.0) Red Cell Distribution Width 19.2 % (11.6-14.8) H Platelet Count 534 K/UL (150-450) H Mean Platelet Volume 8.0 FL (6.5-10.1) Neutrophils (%) (Auto) 78.3 % (45.0-75.0) H Lymphocytes (%) (Auto) 9.6 % (20.0-45.0) L Monocytes (%) (Auto) 4.0 % (1.0-10.0) Eosinophils (%) (Auto) 7.3 % (0.0-3.0) H Basophils (%) (Auto) 0.8 % (0.0-2.0) Sodium Level 140 MMOL/L (136-145) Potassium Level 4.2 MMOL/L (3.5-5.1) Chloride Level 105 MMOL/L (98-107) Carbon Dioxide Level 27 MMOL/L (21-32) Anion Gap 8 mmol/L (5-15) Blood Urea Nitrogen 15 mg/dL (7-18) Creatinine 0.8 MG/DL (0.55-1.30) Estimat Glomerular Filtration Rate > 60 mL/min (>60) Glucose Level 140 MG/DL (74-106) H Calcium Level 9.0 MG/DL (8.5-10.1) Albumin 1.4 G/DL (3.4-5.0) L Prealbumin Pending Current Medications Medications (Trade) Dose Ordered Sig/Zaki Route PRN Reason Start Time Stop Time Status Last Admin Dose Admin Acetaminophen (Tylenol) 650 mg Q6H PRN GT Temp >100.5, Mild Pain 03/11/20 06:30 04/10/20 06:29 03/27/20 13:26 Ascorbic Acid (Vitamin C) 500 mg DAILY ORAL 03/28/20 09:00 04/27/20 08:59 Aspirin (ASA) 81 mg DAILY GT 03/11/20 09:00 04/25/20 08:59 03/18/20 08:35 Calcitonin [place] (Miacalcin) 1 sprays DAILY NASAL 03/13/20 11:00 06/11/20 10:59 03/27/20 09:13 Dextrose (Dextrose 50%) 25 ml Q30M PRN IV Hypoglycemia 03/13/20 23:30 06/11/20 23:29 Dextrose (Dextrose 50%) 50 ml Q30M PRN IV Hypoglycemia 03/13/20 23:30 06/11/20 23:29 Diltiazem HCl (Cardizem Tab) 30 mg EVERY 8 HOURS GT 03/24/20 14:00 04/23/20 13:59 03/28/20 05:07 Diphenhydramine HCl (Benadryl) 25 mg Q8H PRN ORAL Itching 03/14/20 15:00 04/13/20 14:59 03/14/20 15:50 Famotidine (Pepcid) 20 mg BID GT 03/18/20 18:00 06/09/20 08:59 03/27/20 18:04 Insulin Aspart (NovoLOG) Q6HR SUBQ 03/14/20 00:00 06/12/20 00:00 03/27/20 23:18 Levofloxacin 150 ml @ 150 mls/hr Q48H IVPB 03/22/20 09:00 03/29/20 08:59 03/26/20 09:14 Linezolid 300 ml @ 300 mls/hr Q12HR IVPB 03/22/20 13:00 03/29/20 12:59 03/27/20 21:33 Multivitamins (Multivitamins) 1 tab DAILY ORAL 03/28/20 09:00 04/27/20 08:59 Ondansetron HCl (Zofran) 4 mg Q4H PRN IVP Nausea & Vomiting 03/11/20 06:30 04/10/20 06:29 Piperacillin Sod/ Tazobactam Sod 3.375 gm/Sodium Chloride 110 ml @ 27.5 mls/hr EVERY 8 HOURS IVPB 03/17/20 22:00 03/31/20 21:59 03/28/20 05:08 Zinc Sulfate (Zinc Sulfate) 220 mg DAILY ORAL 03/28/20 09:00 04/07/20 09:00 Shirley Villegas M.D. Mar 28, 2020 08:08
--- NOTE | 2020-03-28 08:27 | NUR ---
HAND-OFF: Report given to Tyler Phan RN.
[2020-03-28] MEDS: Ascorbic Acid 500mg tab ORAL SCH (08:55)
[2020-03-28] MEDS: Aspirin Baby 81mg GT SCH (08:55)
[2020-03-28] MEDS: Zinc Sulfate 220mg ORAL SCH (08:55)
--- NOTE | 2020-03-28 09:10 | NUR ---
NURSE NOTES:G tube feeding on hold prior to Indium scan.
[2020-03-28] MEDS: Acetaminophen 650mg/20.3ml GT PRN (09:31)
--- NOTE | 2020-03-28 10:34 | Pulmonolgy Critical Care Note ---
Critical Care - Asmt/Plan Problems: (1) Persistent fever (2) Acute on chronic respiratory failure (3) Staphylococcus aureus bacteremia (4) Sepsis (5) Chronic respiratory failure requiring continuous mechanical ventilation through tracheostomy (6) Stage 4 decubitus ulcer (7) Diabetes mellitus (8) Parkinson's disease dementia (9) Gout (10) Idiopathic obstructive hydrocephalus (11) Severe protein-calorie malnutrition (12) History of intracranial hemorrhage (13) Chronic vegetative state Respiratory: monitor respiratory rate, adjust FIO2, CXR Cardiac: continue pressors, continue to monitor HR/BP Renal: F/U I&O, keep IV fluid, check electrolytes Infectious Disease: check cultures, continue antibiotics Gastrointestinal: continue feedings/current rate Endocrine: monitor blood sugar Disposition: keep in ICU Time Spent (Minutes): 40 Notes Reviewed: black top raker, cardio, renal Discussed with: nurses, consultants, therapeutic 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 marketing manager - Objective Last 24 Hour Vital Signs Date Time Temp Pulse Resp B/P (MAP) Pulse Ox O2 Delivery O2 Flow Rate FiO2 03/28/20 10:01 100.6 03/28/20 08:00 35 03/28/20 08:00 100.6 93 25 117/69 (85) 100 03/28/20 07:50 102 03/28/20 05:07 100 124/67 03/28/20 04:00 99.5 100 20 124/67 (86) 100 03/28/20 04:00 Mechanical Ventilator 03/28/20 04:00 99 03/28/20 03:30 35 03/28/20 03:02 98 21 35 03/28/20 00:00 Mechanical Ventilator 03/28/20 00:00 98.4 90 24 105/56 (72) 100 03/28/20 00:00 90 03/27/20 23:37 35 03/27/20 23:16 67 23 35 03/27/20 21:33 97 118/67 03/27/20 20:00 97 03/27/20 20:00 97.9 99 23 118/67 (84) 100 03/27/20 19:54 35 03/27/20 19:53 Mechanical Ventilator 03/27/20 19:23 103 25 35 03/27/20 16:00 97.7 96 20 123/80 (94) 100 03/27/20 16:00 35 11/30/20 16:00 Mechanical Ventilator 03/27/20 16:00 100 03/27/20 15:00 95 17 35 03/27/20 13:25 109 129/77 03/27/20 12:00 99.5 109 20 129/77 (94) 100 03/27/20 12:00 112 03/27/20 12:00 35 03/27/20 12:00 Mechanical Ventilator 03/27/20 11:00 114 26 35 Status: somnolent Condition: critical HEENT: atraumatic Neck: trach Lungs: rales, rhonchi Heart: HR/BP stable Abdomen: soft, non-tender, feeding tube Extremities: no C/C/E Accucheck: 131 Critical Care - Subjective ROS Limited/Unobtainable: Yes Condition: critical EKG Rhythm: Sinus Rhythm FI02: 35 Vent Support Breath Rate: 16 Vent Support Mode: AC Vent Tidal Volume: 400 Sputum Amount: Small PEEP: 5.0 PIP: 19 Tube Feeding Amount: 70 I&O: Intake and Output 03/27/20 03/28/20 19:00 07:00 Intake Total 940 ml 1207.5 ml Output Total 1000 ml 850 ml Balance -60 ml 357.5 ml Free Water 100 ml IV Total 437.5 ml Tube Feeding 840 ml 770 ml Output Urine Total 1000 ml 850 ml # Bowel Movements 4 5 CXR: 1. Decreased left pleural effusion. Patchy opacity in the left lower lung may represent atelectasis versus pneumonia. 2. Asymmetric lucency in the right lung may be secondary to artifact from patient rotation. Labs: Laboratory Tests Test 03/27/20 12:41 03/27/20 16:47 03/28/20 03:16 POC Whole Blood Glucose 152 MG/DL (74-106) H 143 MG/DL (74-106) H White Blood Count 16.6 K/UL (4.8-10.8) H Red Blood Count 3.14 M/UL (4.20-5.40) L Hemoglobin 8.5 G/DL (12.0-16.0) L Hematocrit 25.4 % (37.0-47.0) L Mean Corpuscular Volume 81 FL (80-99) Mean Corpuscular Hemoglobin 27.1 PG (27.0-31.0) Mean Corpuscular Hemoglobin Concent 33.5 G/DL (32.0-36.0) Red Cell Distribution Width 19.2 % (11.6-14.8) H Platelet Count 534 K/UL (150-450) H Mean Platelet Volume 8.0 FL (6.5-10.1) Neutrophils (%) (Auto) 78.3 % (45.0-75.0) H Lymphocytes (%) (Auto) 9.6 % (20.0-45.0) L Monocytes (%) (Auto) 4.0 % (1.0-10.0) Eosinophils (%) (Auto) 7.3 % (0.0-3.0) H Basophils (%) (Auto) 0.8 % (0.0-2.0) Sodium Level 140 MMOL/L (136-145) Potassium Level 4.2 MMOL/L (3.5-5.1) Chloride Level 105 MMOL/L (98-107) Carbon Dioxide Level 27 MMOL/L (21-32) Anion Gap 8 mmol/L (5-15) Blood Urea Nitrogen 15 mg/dL (7-18) Creatinine 0.8 MG/DL (0.55-1.30) Estimat Glomerular Filtration Rate > 60 mL/min (>60) Glucose Level 140 MG/DL (74-106) H Calcium Level 9.0 MG/DL (8.5-10.1) Albumin 1.4 G/DL (3.4-5.0) L Prealbumin Pending Patti Matta MD Mar 28, 2020 10:34
--- NOTE | 2020-03-28 11:46 | Cardiac Electrophysiology PN ---
Assessment/Plan Assessment/Plan 1. MRSA bacteremia. Most recent blood culture from March 13, 2020 showed no growth. Echocardiogram showed ejection fraction of 60-65% with no clear vegetation. DEBBIE cancelled as family refused. On iv Abx. Indium scan pending completion 2. VDRF , status post tracheostomy.On 40% Fio2 3. Dysphagia, status post PEG placement. 4. History of intracranial hemorrhage. 5. COPD. 6. Diabetes. 7. Glaucoma. 8. Sacral decubitus stage IV. 9. Hypertension, on Cardizem 10. Transient SVT. On Cardizem 30 tid DW RN Subjective Subjective Off pressors on the Vent in sinus tach Fio2 35% and PEEP 5. Family refused DEBBIE. Had episodes of SVT lasting less than 20 seconds 03/23/20. Indium scan pending completion ( 2nd part today) Objective Last 24 Hour Vital Signs Date Time Temp Pulse Resp B/P (MAP) Pulse Ox O2 Delivery O2 Flow Rate FiO2 03/28/20 10:43 97 23 35 03/28/20 10:01 100.6 03/28/20 08:00 35 03/28/20 08:00 100.6 93 25 117/69 (85) 100 03/28/20 08:00 Mechanical Ventilator 03/28/20 07:50 102 03/28/20 07:08 97 16 35 03/28/20 05:07 100 124/67 03/28/20 04:00 99.5 100 20 124/67 (86) 100 03/28/20 04:00 Mechanical Ventilator 03/28/20 04:00 99 03/28/20 03:30 35 03/28/20 03:02 98 21 35 03/28/20 00:00 Mechanical Ventilator 03/28/20 00:00 98.4 90 24 105/56 (72) 100 03/28/20 00:00 90 03/27/20 23:37 35 03/27/20 23:16 67 23 35 03/27/20 21:33 97 118/67 03/27/20 20:00 97 03/27/20 20:00 97.9 99 23 118/67 (84) 100 03/27/20 19:54 35 03/27/20 19:53 Mechanical Ventilator 03/27/20 19:23 103 25 35 03/27/20 16:00 97.7 96 20 123/80 (94) 100 03/27/20 16:00 35 03/27/20 16:00 Mechanical Ventilator 03/27/20 16:00 100 03/27/20 15:00 95 17 35 03/27/20 13:25 109 129/77 03/27/20 12:00 99.5 109 20 129/77 (94) 100 03/27/20 12:00 112 03/27/20 12:00 35 03/27/20 12:00 Mechanical Ventilator Intake and Output 03/27/20 03/28/20 19:00 07:00 Intake Total 940 ml 1207.5 ml Output Total 1000 ml 850 ml Balance -60 ml 357.5 ml Free Water 100 ml IV Total 437.5 ml Tube Feeding 840 ml 770 ml Output Urine Total 1000 ml 850 ml # Bowel Movements 4 5 Laboratory Tests Test 03/27/20 12:41 03/27/20 16:47 03/28/20 03:16 POC Whole Blood Glucose 152 MG/DL (74-106) H 143 MG/DL (74-106) H White Blood Count 16.6 K/UL (4.8-10.8) H Red Blood Count 3.14 M/UL (4.20-5.40) L Hemoglobin 8.5 G/DL (12.0-16.0) L Hematocrit 25.4 % (37.0-47.0) L Mean Corpuscular Volume 81 FL (80-99) Mean Corpuscular Hemoglobin 27.1 PG (27.0-31.0) Mean Corpuscular Hemoglobin Concent 33.5 G/DL (32.0-36.0) Red Cell Distribution Width 19.2 % (11.6-14.8) H Platelet Count 534 K/UL (150-450) H Mean Platelet Volume 8.0 FL (6.5-10.1) Neutrophils (%) (Auto) 78.3 % (45.0-75.0) H Lymphocytes (%) (Auto) 9.6 % (20.0-45.0) L Monocytes (%) (Auto) 4.0 % (1.0-10.0) Eosinophils (%) (Auto) 7.3 % (0.0-3.0) H Basophils (%) (Auto) 0.8 % (0.0-2.0) Sodium Level 140 MMOL/L (136-145) Potassium Level 4.2 MMOL/L (3.5-5.1) Chloride Level 105 MMOL/L (98-107) Carbon Dioxide Level 27 MMOL/L (21-32) Anion Gap 8 mmol/L (5-15) Blood Urea Nitrogen 15 mg/dL (7-18) Creatinine 0.8 MG/DL (0.55-1.30) Estimat Glomerular Filtration Rate > 60 mL/min (>60) Glucose Level 140 MG/DL (74-106) H Calcium Level 9.0 MG/DL (8.5-10.1) Albumin 1.4 G/DL (3.4-5.0) L Prealbumin Pending Objective HEAD AND NECK: No JVD. LUNGS: Coarse rhonchi. Status post tracheostomy. CARDIOVASCULAR: Regular S1 and S2 with no gallop or rub. Status post PEG. EXTREMITIES: 1+ pitting edema with sacral decubitus. Shay Alejandre MD Mar 28, 2020 11:46
[2020-03-28 12:00] VITALS: BP 118/76
--- NOTE | 2020-03-28 12:00 | Nephrology Progress Note ---
Assessment/Plan Problem List: (1) Hypercalcemia (2) Hypernatremia (3) Sepsis (4) UTI (urinary tract infection) (5) Stage 4 decubitus ulcer (6) Acute on chronic respiratory failure (7) Chronic vegetative state (8) Severe protein-calorie malnutrition Assessment Azotemia and hypernatremia indicative of severe dehydration and free water deficit Acute on chronic respiratory failure, on mechanical ventilation Severe underlying anemia Sepsis Stage IV decubitus Idiopathic obstructive hydrocephalus, history of intracranial hemorrhage Diabetes mellitus Parkinson's disease, dementia Protein calorie malnutrition Plan March 28: Labs reviewed. Stable from renal standpoint of view. March 27: Medication list reviewed. Labs reviewed. Stable from renal standpoint of view. March 26: Patient remains stable from renal standpoint of view. Labs and medication list reviewed. March 25: Labs reviewed. Renal parameters stable. Continue per consultants. March 24: Labs reviewed. Renal parameters stable. Continue per consultants. March 23: Labs reviewed. Renal parameters are stable. Continue per consultants. March 22: Labs reviewed. Serum sodium 151. D5W IV given. Continue per jose morel. March 21: Labs reviewed. Renal parameters stable. Continue per consultants. March 20: Labs reviewed. Serum sodium lower 147. Serum calcium stable. Continue as is. March 19: Labs reviewed. Serum sodium unchanged at 150. Another liter of D5W ordered. Serum calcium stable. Continue as is. March 18: Labs reviewed. Serum sodium 150. 1 L of D5W IV ordered. Serum calcium stable. Continue as is. March 17: Labs reviewed. Renal parameters stable. Continue to watch serum calcium. Continue per consultants. March 16: Labs reviewed. Serum calcium stable. Medication list reviewed. Abnormal electrolyte addressed. Continue current management. March 15: Labs reviewed. Serum calcium lowering. Abnormal electrolytes addressed. Continue per consultants. March 14: Labs reviewed. Status quo. Serum calcium lowering. Magnesium and potassium supplement ordered. Continue per current treatment plan. March 13: 1 dose of pamidronate 60 mg for high calcium IV ordered. Labs rev iewed. Medication list reviewed. Electrolytes improving. Hemoglobin higher after transfusion. Nasal calcitonin initiated March 12: D5W at 75 cc an hour Monitor electrolytes Monitor hemoglobin hematocrit Gastric support Consider transfusion Continue per orders Parameters for blood pressure medication Antibiotics per ID Subjective ROS Limited/Unobtainable: Yes Objective Objective Last 24 Hour Vital Signs Date Time Temp Pulse Resp B/P (MAP) Pulse Ox O2 Delivery O2 Flow Rate FiO2 03/28/20 10:43 97 23 35 03/28/20 10:01 100.6 03/28/20 08:00 35 03/28/20 08:00 100.6 93 25 117/69 (85) 100 03/28/20 08:00 Mechanical Ventilator 03/28/20 07:50 102 03/28/20 07:08 97 16 35 03/28/20 05:07 100 124/67 03/28/20 04:00 99.5 100 20 124/67 (86) 100 03/28/20 04:00 Mechanical Ventilator 03/28/20 04:00 99 03/28/20 03:30 35 03/28/20 03:02 98 21 35 03/28/20 00:00 Mechanical Ventilator 03/28/20 00:00 98.4 90 24 105/56 (72) 100 03/28/20 00:00 90 03/27/20 23:37 35 03/27/20 23:16 67 23 35 03/27/20 21:33 97 118/67 03/27/20 20:00 97 03/27/20 20:00 97.9 99 23 118/67 (84) 100 03/27/20 19:54 35 03/27/20 19:53 Mechanical Ventilator 03/27/20 19:23 103 25 35 03/27/20 16:00 97.7 96 20 123/80 (94) 100 03/27/20 16:00 35 03/27/20 16:00 Mechanical Ventilator 03/27/20 16:00 100 03/27/20 15:00 95 17 35 03/27/20 13:25 109 129/77 03/27/20 12:00 99.5 109 20 129/77 (94) 100 03/27/20 12:00 112 03/27/20 12:00 35 03/27/20 12:00 Mechanical Ventilator Intake and Output 03/27/20 03/28/20 19:00 07:00 Intake Total 940 ml 1207.5 ml Output Total 1000 ml 850 ml Balance -60 ml 357.5 ml Free Water 100 ml IV Total 437.5 ml Tube Feeding 840 ml 770 ml Output Urine Total 1000 ml 850 ml # Bowel Movements 4 5 Current Medications Medications (Trade) Dose Ordered Sig/Zaki Route PRN Reason Start Time Stop Time Status Last Admin Dose Admin Acetaminophen (Tylenol) 650 mg Q6H PRN GT Temp >100.5, Mild Pain 03/11/20 06:30 04/10/20 06:29 03/28/20 09:31 Ascorbic Acid (Vitamin C) 500 mg DAILY ORAL 03/28/20 09:00 04/27/20 08:59 03/28/20 08:55 Aspirin (ASA) 81 mg DAILY GT 03/11/20 09:00 04/25/20 08:59 03/28/20 08:55 Calcitonin [place] (Miacalcin) 1 sprays DAILY NASAL 03/13/20 11:00 06/11/20 10:59 03/28/20 08:56 Dextrose (Dextrose 50%) 25 ml Q30M PRN IV Hypoglycemia 03/13/20 23:30 06/11/20 23:29 Dextrose (Dextrose 50%) 50 ml Q30M PRN IV Hypoglycemia 03/13/20 23:30 06/11/20 23:29 Diltiazem HCl (Cardizem Tab) 30 mg EVERY 8 HOURS GT 03/24/20 14:00 04/23/20 13:59 03/28/20 05:07 Diphenhydramine HCl (Benadryl) 25 mg Q8H PRN ORAL Itching 03/14/20 15:00 04/13/20 14:59 03/14/20 15:50 Famotidine (Pepcid) 20 mg BID GT 03/18/20 18:00 06/09/20 08:59 03/28/20 08:55 Insulin Aspart (NovoLOG) Q6HR SUBQ 03/14/20 00:00 06/12/20 00:00 03/27/20 23:18 Levofloxacin 150 ml @ 150 mls/hr Q48H IVPB 03/22/20 09:00 03/29/20 08:59 03/28/20 08:54 Linezolid 300 ml @ 300 mls/hr Q12HR IVPB 03/22/20 13:00 03/29/20 12:59 03/28/20 08:54 Multivitamins (Multivitamins) 1 tab DAILY ORAL 03/28/20 09:00 04/27/20 08:59 03/28/20 08:55 Ondansetron HCl (Zofran) 4 mg Q4H PRN IVP Nausea & Vomiting 03/11/20 06:30 04/10/20 06:29 Zinc Sulfate (Zinc Sulfate) 220 mg DAILY ORAL 03/28/20 09:00 04/07/20 09:00 03/28/20 08:55 Laboratory Tests 03/27/20 12:41: POC Whole Blood Glucose 152H 03/27/20 16:47: POC Whole Blood Glucose 143H 03/28/20 03:16: White Blood Count 16.6H, Red Blood Count 3.14L, Hemoglobin 8.5L, Hematocrit 25.4L, Mean Corpuscular Volume 81, Mean Corpuscular Hemoglobin 27.1, Mean Corpuscular Hemoglobin Concent 33.5, Red Cell Distribution Width 19.2H, Platelet Count 534H, Mean Platelet Volume 8.0, Neutrophils (%) (Auto) 78.3H, Lymphocytes (%) (Auto) 9.6L, Monocytes (%) (Auto) 4.0, Eosinophils (%) (Auto) 7.3H, Basophils (%) (Auto) 0.8, Sodium Level 140, Potassium Level 4.2, Chloride Level 105, Carbon Dioxide Level 27, Anion Gap 8, Blood Urea Nitrogen 15, Creatinine 0.8, Estimat Glomerular Filtration Rate > 60, Glucose Level 140H, Calcium Level 9.0, Albumin 1.4L, Prealbumin [Pending] Height (Feet): 5 Height (Inches): 5.00 Weight (Pounds): 147 General Appearance: no apparent distress EENT: other - Trach to vent Cardiovascular: tachycardia Respiratory/Chest: decreased breath sounds Abdomen: distended Mathew Huntley MD Mar 28, 2020 12:00
--- NOTE | 2020-03-28 12:30 | NUR ---
NURSE NOTES: Patient is transported to [facility] for Indium scan.
--- NOTE | 2020-03-28 14:10 | NUR ---
NURSE NOTES:G tube feeding resumed. New formula hung and tubing changed.
--- NOTE | 2020-03-28 14:15 | NUR ---
CASE MANAGEMENT:REVIEW 03/28/20 SI: MRSA SEPSIS TRACH/VENT/GT DEPENDENT 100.6 102 25 117/69 100% ON VENT SUPPORT 35% FIO2 WBC+16.6 H/H-8.5/25.4 IS: IV LINEZOLID Q12 IV LEVAQUIN Q48 CARDIZEM GT Q8HRS : STEP DOWN UNIT DCP: FROM [facility]
--- NOTE | 2020-03-28 15:28 | Diagnostic Imaging Report ---
Indication: Unexplained leukocytosis Technique: In vitro labeling of white blood cells using 20 uCi indium-111. Cells were injected, whole body and spot images obtained at 24 hours Comparison: Exam is technically limited, due to inability to optimally position the patient related to inability of the patient to follow commands and due to contractures Findings: Normal marrow activity is demonstrated. Normal activity is seen within the liver and spleen. There is asymmetric appearance of activity within the pelvis due to positioning issues. No definite abnormal focal tracer accumulation is demonstrated Impression: Limited exam, as described. No definite abnormality to explain stated clinical history of leukocytosis
--- NOTE | 2020-03-28 15:56 | Surgery Progress Note ---
Surgery Progress Note Subjective Symptoms: tolerating diet, BM Objective Last 24 Hour Vital Signs Date Time Temp Pulse Resp B/P (MAP) Pulse Ox O2 Delivery O2 Flow Rate FiO2 03/28/20 14:19 92 118/76 03/28/20 12:00 35 03/28/20 12:00 Mechanical Ventilator 03/28/20 12:00 92 03/28/20 12:00 97.9 104 20 118/76 (90) 100 03/28/20 10:43 97 23 35 03/28/20 10:01 100.6 03/28/20 08:00 35 03/28/20 08:00 100.6 93 25 117/69 (85) 100 03/28/20 08:00 Mechanical Ventilator 03/28/20 07:50 102 03/28/20 07:08 97 16 35 03/28/20 05:07 100 124/67 03/28/20 04:00 99.5 100 20 124/67 (86) 100 03/28/20 04:00 Mechanical Ventilator 03/28/20 04:00 99 03/28/20 03:30 35 03/28/20 03:02 98 21 35 03/28/20 00:00 Mechanical Ventilator 03/28/20 00:00 98.4 90 24 105/56 (72) 100 03/28/20 00:00 90 03/27/20 23:37 35 03/27/20 23:16 67 23 35 03/27/20 21:33 97 118/67 03/27/20 20:00 97 03/27/20 20:00 97.9 99 23 118/67 (84) 100 03/27/20 19:54 35 03/27/20 19:53 Mechanical Ventilator 03/27/20 19:23 103 25 35 03/27/20 16:00 97.7 96 20 123/80 (94) 100 03/27/20 16:00 35 03/27/20 16:00 Mechanical Ventilator 03/27/20 16:00 100 I&O Intake and Output 03/27/20 03/28/20 19:00 07:00 Intake Total 940 ml 1207.5 ml Output Total 1000 ml 850 ml Balance -60 ml 357.5 ml Free Water 100 ml IV Total 437.5 ml Tube Feeding 840 ml 770 ml Output Urine Total 1000 ml 850 ml # Bowel Movements 4 5 Dressing: saturated Cardiovascular: RSR Respiratory: decreased breath sounds Abdomen: non-tender, present bowel sounds Extremities: no tenderness, no cyanosis Laboratory Tests Test 03/27/20 16:47 03/28/20 03:16 03/28/20 11:49 POC Whole Blood Glucose 143 MG/DL (74-106) H Pending White Blood Count 16.6 K/UL (4.8-10.8) H Red Blood Count 3.14 M/UL (4.20-5.40) L Hemoglobin 8.5 G/DL (12.0-16.0) L Hematocrit 25.4 % (37.0-47.0) L Mean Corpuscular Volume 81 FL (80-99) Mean Corpuscular Hemoglobin 27.1 PG (27.0-31.0) Mean Corpuscular Hemoglobin Concent 33.5 G/DL (32.0-36.0) Red Cell Distribution Width 19.2 % (11.6-14.8) H Platelet Count 534 K/UL (150-450) H Mean Platelet Volume 8.0 FL (6.5-10.1) Neutrophils (%) (Auto) 78.3 % (45.0-75.0) H Lymphocytes (%) (Auto) 9.6 % (20.0-45.0) L Monocytes (%) (Auto) 4.0 % (1.0-10.0) Eosinophils (%) (Auto) 7.3 % (0.0-3.0) H Basophils (%) (Auto) 0.8 % (0.0-2.0) Sodium Level 140 MMOL/L (136-145) Potassium Level 4.2 MMOL/L (3.5-5.1) Chloride Level 105 MMOL/L (98-107) Carbon Dioxide Level 27 MMOL/L (21-32) Anion Gap 8 mmol/L (5-15) Blood Urea Nitrogen 15 mg/dL (7-18) Creatinine 0.8 MG/DL (0.55-1.30) Estimat Glomerular Filtration Rate > 60 mL/min (>60) Glucose Level 140 MG/DL (74-106) H Calcium Level 9.0 MG/DL (8.5-10.1) Albumin 1.4 G/DL (3.4-5.0) L Prealbumin Pending Plan Problems: (1) Hypernatremia (2) Sepsis (3) UTI (urinary tract infection) (4) Stage 4 decubitus ulcer Assessment & Plan: Pt presented with trach,contractures, multiple Pressure injuries in various stages.Skin assessed under collar of trach and no skin breakdown evident. Full thickness Sacral Pressure injury with undermining clockwise 6-9o'clock.Wound is irregular shaped.Base of wound is 95% granular,5% slough at undermined borders.Small area of bone exposure noted at base of wound. Small amt serosanguineous exudate noted. No odor noted. An area of slough noted along borders. Edges are otherwise adherent and flat to base of wound with surrounding dry, darker skin tone.(L)11.2cm x (W)-8.7cm x(D)1.6cm ,undermining clockwise 6-9o'clock by 1.8cm @8o'clock. Partial thickness Pressure injury noted to R ischium. Base of wound is moist ,viable with surrounding shearing and non-blanchable erythema.(L)6.5cm x (W)4.5cm. Partial thickness Pressure injury L Ischium(L)1.2cm x (W)1.5cm. Base of wound is moist and viable with surrounding non-blanchable erythema with additional shearing. Resolving Pressure Injury medial L Knee. Base of wound is pink and dry . Resolving Pressure injury medial R knee. Dry pink epithelial with scattered moist, granular areas within base of wound.No odor or exudate noted.(L)4.3cm x (W)2.6cm. DTPI L lateral Malleolus(L)2.5cm x (W)3.5cm.Base of Pressure injury is indurated and maroon in colour. Non-Blanchable erythema periwound. DTPI L achilles extending into Plantar aspect of L heel(L)9.7cm x (W)10.4cm. Base of Pressure injury is black at achilles area with scattered purpuric areas, and is otherwise maroon and indurated. Resolving Pressure injury medial R Malleolus. [place] epithelial at base of wound. Stable dry eschar noted to R Hallux (L)1.2cm x (W01.3cm. Periwound skin tone is darker without erythema or induration. Tx.Plan: Cleanse Sacral wound with Saline. Loosely pack with Therahoney impregnated Kerlix(Attention to undermined area). Apply Moisture Barrier Periwound. Cover with Optifoam drsg. Change Daily and prn. Apply Moisture Barrier Paste to R and L Ischial wounds. Cover each site with Optifoam drsg. Change every 3 days and prn. Apply Cavilon Skin Barrier to medial aspects of R and L Knee. Cover each wound with Optifoam drsg.Change every 7 days and prn. Apply Cavilon Skin Barrier to R Hallux, R Heel, R and L Malleoli, and Both heels. Cover each affected area with Optifoam drsgs. Change drsgs every 7 days and prn. Reposition at least every [address] tolerated[address] Pillow between Knees. Off-load heels with Pillow. CT noted. osteo in sacrum cont abx osteo chronic will monitor and asses if debridement needed ABDOMEN: Liver: Unremarkable. No mass. Gallbladder and bile ducts: Unremarkable. No calcified stones. No ductal dilation. Pancreas: Unremarkable. No mass. No ductal dilation. Spleen: Spleen is small. Adrenals: Unremarkable. No mass. Kidneys and ureters: Renal cysts and subcentimeter low-attenuation foci, too small to characterize. No hydronephrosis. Stomach and bowel: Unremarkable. No obstruction. No mucosal thickening. PELVIS: Appendix: No findings to suggest acute appendicitis. Bladder: Bladder wall thickening. Foci of gas in the bladder. Correlate for recent instrumentation versus cystitis. Reproductive: Unremarkable as visualized. ABDOMEN and PELVIS: Intraperitoneal space: Unremarkable. No free air. No significant fluid collection. Bones/joints: Sacrococcygeal decubitus ulcers with associated osteomyelitis. There is some underlying bone thinning and sclerosis in the distal sacrum and coccyx underlying the decubitus ulcers. No acute fracture. No dislocation. Soft tissues: Unremarkable. Vasculature: Moderate plaque abdominal aorta and branches. No abdominal aortic aneurysm. Lymph nodes: Unremarkable. No enlarged lymph nodes. Tubes, lines and devices: Gastrostomy tube within the gastric body. IMPRESSION: 1. Sacrococcygeal decubitus ulcers with associated osteomyelitis. 2. Small left pleural effusion. Left lower lobe atelectasis. 3. Bladder wall thickening. Foci of gas in the bladder. Correlate for recent instrumentation versus cystitis. DAILY ESTIMATED NEEDS: Needs based on Advanced wound, critical care, underweight, [employer] TF/ 45.5kg 30-40 kcals/kg 8079-4286 total kcals 1.5-2 g protein/kg 68-91 g total protein 30-40 mL/kg 5977-0807 total fluid mLs NUTRITION DIAGNOSIS: Increased kcal/prot needs R/T underweight status, wound healing as evidenced by pt @83% IBW w/ underweight BMI of 17.2, admitted w/ multiple wounds, including stage 4 sacral wound. CURRENT TF:Glucerna 1.2 @ 45ml/hr x 24 hrs ENTERAL NUTRITION RECOMMENDATIONS: Glucerna 1.2 @ 60ml/hr x 24 hrs to provide 1440ml, 1728kcal, 86g prot, 1159ml free water * Increase goal rate to 60ml/hr x 24 hrs to meet 100% est kcal/prot needs -> 1.9g prot/kg * HOB over 30 degrees/ water flush per MD * add Shen BID ADDITIONAL RECOMMENDATIONS: * Per SNF: HT=64" and JH=065# vs EMR wt of 147lbs -> rec daily calibrated bedscale wt * Wound healing: TF rec @ goal will provide 100% RDI Vit C 500mg BID, ZnSO4 220gm QD x 10 days Shen BID via PEG * Monitor BGs, consider NISS: h/o DM * Monitor lytes, replete as needed (5) Chronic respiratory failure requiring continuous mechanical ventilation through tracheostomy (6) History of intracranial hemorrhage (7) Idiopathic obstructive hydrocephalus (8) Gout (9) Diabetes mellitus (10) Parkinson's disease dementia (11) Acute on chronic respiratory failure (12) Chronic vegetative state (13) Severe protein-calorie malnutrition Assessment & Plan: DAILY ESTIMATED NEEDS: Needs based on Advanced wound, critical care, underweight, [employer]IAN TF/ 45.5kg 30-40 kcals/kg 8099-7114 total kcals 1.5-2 g protein/kg 68-91 g total protein 30-40 mL/kg 2491-2550 total fluid mLs NUTRITION DIAGNOSIS: Increased kcal/prot needs R/T underweight status, wound healing as evidenced by pt @83% IBW w/ underweight BMI of 17.2, admitted w/ multiple wounds, including stage 4 sacral wound. CURRENT TF:Glucerna 1.2 @ 60ml/hr x 24 hrs ENTERAL NUTRITION RECOMMENDATIONS: Glucerna 1.2 @ 60ml/hr x 24 hrs to provide 1440ml, 1728kcal, 86g prot, 1159ml free water * Maintain current TF rate as tolerated to meet 100% est kcal/prot needs -> 1.9g prot/kg. * HOB over 30 degrees/ water flush per MD * add Shen BID ADDITIONAL RECOMMENDATIONS: * Per SNF: HT=64" and IE=285# vs EMR wt of 147lbs -> Recalibrate bed scale for accurate CBW * Wound healing: TF rec @ goal will provide 100% RDI add Vit C 500mg BID, continue ZnSO4 220gm QD x 10 days Shen BID via PEG * Monitor BGs, consider NISS: h/o DM -> NISS now added * Increase water flushes for elevated Na (14) Hypercalcemia (15) Staphylococcus aureus bacteremia Assessment & Plan: unlikely related to wound checking often to ensure not worsening good local care being provided cont abx There is bilateral mostly upper lobe centrilobular emphysema. Mosaic attenuation pattern is seen throughout the bilateral upper lobes. There is consolidation and atelectasis of most of the left lower lobe. A few groundglass opacities are seen in the inferior left upper lobe. There is some compressive atelectasis at the right lung base with elevation of the right hemidiaphragm. There is a subpleural 8 mm nodular opacity in the right middle lobe. On recent abdomen pelvis CT scan, this demonstrated a cavity. The cavity is not evident currently There is a tracheostomy. The pleural spaces are clear. The heart size is normal. No pericardial effusion. No mediastinal or hilar mass or adenopathy. The ascending thoracic aorta is mildly ectatic, measuring up to 3.8 cm in diameter. The included portion of the thyroid is unremarkable. No axillary or chest wall mass or adenopathy demonstrated. There is smooth thoracic kyphosis without focal compression abnormality. The bones are unremarkable. Included upper abdominal anatomy demonstrates contrast in the colon from prior CT of the abdomen. There is a upper pole right renal cyst Impression: Centrilobular emphysema seen throughout both lungs with with an upper lobe predominance, indicating extensive COPD changes Mosaic attenuation pattern in the upper lobes probably related to COPD, although this is a nonspecific finding Dense consolidation and atelectasis of much of the left lower lobe. This could represent pneumonia. Groundglass opacities in the inferior left upper lobe. These could represent areas of acute inflammation, or could represent post inflammatory changes. 8mm nodule in the right middle lobe, also described on prior CT scan. This previously demonstrated a cavity. Cavitation currently not evident. Differential considerations include neoplasm, acute or chronic inflammatory lesion. Recommend at a minimum follow-up CT scan in 6 months Tracheostomy Kyphosis Right upper pole renal cyst Chris Hunter Mar 28, 2020 15:56
[2020-03-28 16:00] VITALS: BP 101/59
--- NOTE | 2020-03-28 17:27 | Internal Med Progress Note ---
Subjective Date of Service: Mar 28, 2020 Physician Name BarajasPiyush Attending Physician Jesus Lutz MD Current Medications Medications (Trade) Dose Ordered Sig/Zaki Route PRN Reason Start Time Stop Time Status Last Admin Dose Admin Acetaminophen (Tylenol) 650 mg Q6H PRN GT Temp >100.5, Mild Pain 03/11/20 06:30 04/10/20 06:29 03/28/20 09:31 Ascorbic Acid (Vitamin C) 500 mg DAILY ORAL 03/28/20 09:00 04/27/20 08:59 03/28/20 08:55 Aspirin (ASA) 81 mg DAILY GT 03/11/20 09:00 04/25/20 08:59 03/28/20 08:55 Calcitonin [place] (Miacalcin) 1 sprays DAILY NASAL 03/13/20 11:00 06/11/20 10:59 03/28/20 08:56 Dextrose (Dextrose 50%) 25 ml Q30M PRN IV Hypoglycemia 03/13/20 23:30 06/11/20 23:29 Dextrose (Dextrose 50%) 50 ml Q30M PRN IV Hypoglycemia 03/13/20 23:30 06/11/20 23:29 Diltiazem HCl (Cardizem Tab) 30 mg EVERY 8 HOURS GT 03/24/20 14:00 04/23/20 13:59 03/28/20 14:19 Diphenhydramine HCl (Benadryl) 25 mg Q8H PRN ORAL Itching 03/14/20 15:00 04/13/20 14:59 03/14/20 15:50 Famotidine (Pepcid) 20 mg BID GT 03/18/20 18:00 06/09/20 08:59 03/28/20 08:55 Insulin Aspart (NovoLOG) Q6HR SUBQ 03/14/20 00:00 06/12/20 00:00 03/27/20 23:18 Levofloxacin 150 ml @ 150 mls/hr Q48H IVPB 03/22/20 09:00 03/29/20 08:59 03/28/20 08:54 Linezolid 300 ml @ 300 mls/hr Q12HR IVPB 03/22/20 13:00 04/02/20 12:59 03/28/20 08:54 Multivitamins (Multivitamins) 1 tab DAILY ORAL 03/28/20 09:00 04/27/20 08:59 03/28/20 08:55 Ondansetron HCl (Zofran) 4 mg Q4H PRN IVP Nausea & Vomiting 03/11/20 06:30 04/10/20 06:29 Zinc Sulfate (Zinc Sulfate) 220 mg DAILY ORAL 03/28/20 09:00 04/07/20 09:00 03/28/20 08:55 Allergies: Coded Allergies: No Known Allergies (Unverified , 03/11/20) ROS Limited/Unobtainable: Yes Subjective 74 YO F trach dependent admitted with hypoxic respiratory failure. Now pneumonia and sepsis. Cover for Int [place]-Dr Lutz. Step down unit. Objective Last Vital Signs Date Time Temp Pulse Resp B/P (MAP) Pulse Ox O2 Delivery O2 Flow Rate FiO2 03/28/20 16:00 Mechanical Ventilator 03/28/20 16:00 98.1 96 22 101/59 (73) 97 03/28/20 16:00 35 Laboratory Tests Test 03/28/20 03:16 03/28/20 11:45 03/28/20 11:49 White Blood Count 16.6 K/UL (4.8-10.8) H Red Blood Count 3.14 M/UL (4.20-5.40) L Hemoglobin 8.5 G/DL (12.0-16.0) L Hematocrit 25.4 % (37.0-47.0) L Mean Corpuscular Volume 81 FL (80-99) Mean Corpuscular Hemoglobin 27.1 PG (27.0-31.0) Mean Corpuscular Hemoglobin Concent 33.5 G/DL (32.0-36.0) Red Cell Distribution Width 19.2 % (11.6-14.8) H Platelet Count 534 K/UL (150-450) H Mean Platelet Volume 8.0 FL (6.5-10.1) Neutrophils (%) (Auto) 78.3 % (45.0-75.0) H Lymphocytes (%) (Auto) 9.6 % (20.0-45.0) L Monocytes (%) (Auto) 4.0 % (1.0-10.0) Eosinophils (%) (Auto) 7.3 % (0.0-3.0) H Basophils (%) (Auto) 0.8 % (0.0-2.0) Sodium Level 140 MMOL/L (136-145) Potassium Level 4.2 MMOL/L (3.5-5.1) Chloride Level 105 MMOL/L (98-107) Carbon Dioxide Level 27 MMOL/L (21-32) Anion Gap 8 mmol/L (5-15) Blood Urea Nitrogen 15 mg/dL (7-18) Creatinine 0.8 MG/DL (0.55-1.30) Estimat Glomerular Filtration Rate > 60 mL/min (>60) Glucose Level 140 MG/DL (74-106) H Calcium Level 9.0 MG/DL (8.5-10.1) Albumin 1.4 G/DL (3.4-5.0) L Prealbumin Pending Miscellaneous Test Pending POC Whole Blood Glucose Pending Intake and Output 03/27/20 03/28/20 19:00 07:00 Intake Total 940 ml 1207.5 ml Output Total 1000 ml 850 ml Balance -60 ml 357.5 ml Free Water 100 ml IV Total 437.5 ml Tube Feeding 840 ml 770 ml Output Urine Total 1000 ml 850 ml # Bowel Movements 4 5 Objective PHYSICAL EXAMINATION: GENERAL: The patient is a thin-appearing female who is intubated and nonverbal. HEENT: Eyes, pupils are equal and responsive to light and accommodation. Extraocular movements are intact. NECK: Supple without lymphadenopathy. Tracheostomy is in place. CHEST: Mech vent; Diffuse wheezes bilaterally without rhonchi. CARDIOVASCULAR: Tachycardic, regular rhythm. S1, S2 are normal without murmurs, rubs, or gallops. ABDOMEN: Soft, nontender, and nondistended. Positive bowel sounds. No evidence of hepatosplenomegaly. Currently, no rebound or guarding noted. EXTREMITIES: Negative for clubbing, cyanosis, or edema. RECTAL/GENITAL: Not performed. NEUROLOGIC: Unable to assess. chest x-ray revealed left lower lobe consolidation consistent with pneumonia Assessment/Plan Assessment/Plan ASSESSMENT: This is a 74-year-old female. 1. Left lower lobe pneumonia. 2. Respiratory failure. 3. Hypernatremia. 4. Renal failure. 5. Hypoxemia. 6. Tracheostomy dependence. 7. Chronic obstructive pulmonary disease. 8. Diabetes type 2. 9. Parkinson disease. 10. Gout. 11. Glaucoma. 12. Sacral decubitus ulcer stage IV. 13. History of intracranial hemorrhage. 14. Hydrocephalus. 15. sepsis=MRSA 16. UTI=MDR acenitobacter TREATMENT: 1. Left lower lobe pneumonia/respiratory failure/sepsis. Pulmonary consultation =Dr. Patti Matta. ABX= continue linezolid, zosyn and levaquin. S/P vanco-see ID note Infectious disease=Dr. Villegas. We will follow recommendations of Infectious Disease and Pulmonary. 2. Hypernatremia. Hypernatremia may be secondary to renal failure versus dehydration. Nephrology consultation =. 3. Renal failure nephrology consultation =Dr. Huntley. 4. Tracheostomy dependence. 5. Chronic obstructive pulmonary disease. 6. Diabetes type 2. NovoLog sliding scale has been instituted. 7. Parkinson disease. 8. Gout. Continue allopurinol as above. 9. Glaucoma. 10. Sacral decubitus ulcer stage IV. A general surgery consultation has been obtained with Dr. Chris Hunter. 11. History of intracranial hemorrhage. 12. DEBBIE refused by patient's daughter; cardiology=Trista Alejandre and Rachel 13. Await indium scan Piyush Barajas MD Mar 28, 2020 17:27
--- NOTE | 2020-03-28 18:53 | NUR ---
NURSE NOTES: Received report from ADILENE Scott. Pt is lying in bed in semi- horowitz's position facing on the right side. Pt is connected to tach to vent with settings as ordered. Pt has no apparent respiratory distress. No facial grimacing noted. With Left hand g24 and left wrist g22 patent and intact on saline lock. with Gtube intact and patent glucerna 1.2 @70cc/hr continously. No fever noted at this time. Bed in lowest position. Call light within reach. Continue to plan of care.
--- NOTE | 2020-03-28 19:27 | NUR ---
NURSE HAND-OFF REPORT: Important Events on Shift:Patient had Indium scan today Patient Status: stable Diet: Glucerna 1.2@70ML/HR Pending Orders: Pending Results/Labs:Indium result pending Pending notification: Latest Vital Signs: Temperature 98.1 , Pulse 103 , B/P 101 /59 , Respiratory Rate 27 , O2 SAT 97 , Mechanical Ventilator, O2 Flow Rate . Vital Sign Comment: EKG Rhythm: Sinus Rhythm Rhythm change?: N MD Notified?: Zacarias Alejandre MD Response: Latest Ochoa Fall Score: 50 Fall Risk: High Risk Safety Measures: Call light Within Reach, Bed Alarm Zone 2, Side Rails Side Rails x3, Bed position Low and Locked. Fall Precautions: Yellow Socks Yellow Gown Door Sign Patient Fall Education Report given to ADILENE Sanchez.
[2020-03-28 20:00] VITALS: BP 128/71
--- NOTE | 2020-03-28 20:26 | General Progress Note ---
Subjective Allergies: Coded Allergies: No Known Allergies (Unverified , 03/11/20) Subjective above noted tolerating TF Objective Last 24 Hour Vital Signs Date Time Temp Pulse Resp B/P (MAP) Pulse Ox O2 Delivery O2 Flow Rate FiO2 03/28/20 18:47 103 27 35 03/28/20 16:00 Mechanical Ventilator 03/28/20 16:00 98.1 96 22 101/59 (73) 97 03/28/20 16:00 35 03/28/20 15:43 95 03/28/20 15:15 99 22 35 03/28/20 14:19 92 118/76 03/28/20 12:00 35 03/28/20 12:00 Mechanical Ventilator 03/28/20 12:00 92 03/28/20 12:00 97.9 104 20 118/76 (90) 100 03/28/20 10:43 97 23 35 03/28/20 10:01 100.6 03/28/20 08:00 35 03/28/20 08:00 100.6 93 25 117/69 (85) 100 03/28/20 08:00 Mechanical Ventilator 03/28/20 07:50 102 03/28/20 07:08 97 16 35 03/28/20 05:07 100 124/67 03/28/20 04:00 99.5 100 20 124/67 (86) 100 03/28/20 04:00 Mechanical Ventilator 03/28/20 04:00 99 03/28/20 03:30 35 03/28/20 03:02 98 21 35 03/28/20 00:00 Mechanical Ventilator 03/28/20 00:00 98.4 90 24 105/56 (72) 100 03/28/20 00:00 90 03/27/20 23:37 35 03/27/20 23:16 67 23 35 03/27/20 21:33 97 118/67 Intake and Output 03/27/20 03/28/20 19:00 07:00 Intake Total 940 ml 1277.5 ml Output Total 1000 ml 850 ml Balance -60 ml 427.5 ml Free Water 100 ml IV Total 437.5 ml Tube Feeding 840 ml 840 ml Output Urine Total 1000 ml 850 ml # Bowel Movements 4 5 Laboratory Tests 03/28/20 03:16: White Blood Count 16.6H, Red Blood Count 3.14L, Hemoglobin 8.5L, Hematocrit 25.4L, Mean Corpuscular Volume 81, Mean Corpuscular Hemoglobin 27.1, Mean Corpuscular Hemoglobin Concent 33.5, Red Cell Distribution Width 19.2H, Platelet Count 534H, Mean Platelet Volume 8.0, Neutrophils (%) (Auto) 78.3H, Lymphocytes (%) (Auto) 9.6L, Monocytes (%) (Auto) 4.0, Eosinophils (%) (Auto) 7.3H, Basophils (%) (Auto) 0.8, Sodium Level 140, Potassium Level 4.2, Chloride Level 105, Carbon Dioxide Level 27, Anion Gap 8, Blood Urea Nitrogen 15, Creatinine 0.8, Estimat Glomerular Filtration Rate > 60, Glucose Level 140H, Calcium Level 9.0, Albumin 1.4L, Prealbumin [Pending] 03/28/20 11:45: Miscellaneous Test [Pending] 03/28/20 11:49: POC Whole Blood Glucose [Pending] 03/28/20 17:44: POC Whole Blood Glucose 147H Height (Feet): 5 Height (Inches): 5.00 Weight (Pounds): 147 Objective elderly woman NCAT supple, trach CTA RR abd soft, (+)GT no edema (+) multiple decubs Assessment/Plan Assessment/Plan: Assessment History of intracranial hemorrhage, s/p gastrostomy, OB (+) stools status post tracheostomy, chronic obstructive pulmonary disease, type 2 diabetes, Parkinson's, gout, glaucoma, history of stage IV sacral decubitus ulceration, gout Fever Low albumin Recommendations - continue TF - GT care - elevate HOB - Monitor H&H - no GI w/u per family decision - re check albumin and prealbumin periodically Deanne Rivera MD Mar 28, 2020 20:26
--- NOTE | 2020-03-28 23:12 | NUR ---
NURSE NOTES: Seen pt sleeping comfortably in bed. no signs of respiratory distress. Continue to plan of care.
[2020-03-29] VITALS: BP 102/57
--- NOTE | 2020-03-29 01:08 | NUR ---
NURSE NOTES: Sponge bath given. noormal bowel movement noted x1 in medium amount brown in color. Noted New wounds. Wound protocol done. Repositioned pt per protocol. Continue to plan of care.
[2020-03-29 04:00] VITALS: BP 100/59
--- NOTE | 2020-03-29 05:20 | NUR ---
NURSE NOTES: Seen pt in bed, cleaned pt noted liquidy stool. 1x episode in large amount. Not in distress o2 sat-100%. Not in pain. No facial grimacing noted. Continue to plan of care.
[2020-03-29] MEDS: NovoLOG Insulin Flexpen SUBQ SCH ×4 (05:27→23:31)
[2020-03-29] MEDS: dilTIAZem HCl 30mg tab GT SCH ×3 (05:32→21:00)
[2020-03-29 05:52] LABS: ANION GAP 5 mmol/L (5-15); BLOOD UREA NITROGEN 17 mg/dL (7-18); CALCIUM 8.9 MG/DL (8.5-10.1); CARBON DIOXIDE 29 MMOL/L (21-32); CHLORIDE 104 MMOL/L (98-107); CREATININE 0.9 MG/DL (0.55-1.30); POTASSIUM 4.4 MMOL/L (3.5-5.1); SODIUM 138 MMOL/L (136-145)
[2020-03-29 06:00] LABS: BASOPHILS % (AUTO) 0.4 % (0.0-2.0); EOSINOPHILS % (AUTO) 10.1 % (0.0-3.0); HEMOGLOBIN 8.5 G/DL (12.0-16.0); LYMPHOCYTES % (AUTO) 12.2 % (20.0-45.0); MEAN CORPUSCULAR VOLUME 82 FL (80-99); MONOCYTES % (AUTO) 4.4 % (1.0-10.0); NEUTROPHILS % (AUTO) 72.8 % (45.0-75.0); PLATELET COUNT 421 K/UL (150-450); RED BLOOD COUNT 3.16 M/UL (4.20-5.40); WHITE BLOOD COUNT 16.1 K/UL (4.8-10.8)
--- NOTE | 2020-03-29 06:01 | NUR ---
NURSE NOTES: Seen pt sleeping comfortably in bed. no signs of respiratory distress. Continue to plan of care.
--- NOTE | 2020-03-29 07:00 | NUR ---
NURSE HAND-OFF REPORT: Important Events on Shift: stac- HIGHEST 104 BPM- PT is asymptomatic and held prev dose of cardizem, see notes. New wound noted. Patient Status: Stable Diet: GTF Pending Orders: None Pending Results/Labs: None Pending MD notification: None Latest Vital Signs: Temperature 98.2 , Pulse 113 , B/P 121 /71 , Respiratory Rate 21 , O2 SAT 100 , Mechanical Ventilator, O2 Flow Rate . Vital Sign Comment: HR- highest 104 bpm EKG Rhythm: Sinus Tachycardia Rhythm change?: N MD Notified?: N -Dr. Hill MARQUES Response: Latest Ochoa Fall Score: 70 Fall Risk: High Risk Safety Measures: Call light Within Reach, Bed Alarm Zone 2, Side Rails Side Rails x3, Bed position Low and Locked. Fall Precautions: Yellow Socks Yellow Gown Door Sign Patient Fall Education Report given to [ADILENE Scott].
--- NOTE | 2020-03-29 07:13 | NUR ---
NURSE NOTES:Handoff received from ADILENE Sanchez. Informed that Cardizem was non-administered due to decreased blood pressure. Patient received awake and resting in bed, no facial grimacing or distress noted. Patient spontaneously opens eyes but does not follow commands. Patient is on trach to vent with settings: [place] 7, AC 16, TV 400, [id number] PEEP 5 with O2 sat of 100%. G tube is patent and running Glucerna 1.2@ goal of 70ML/HR. Patient is on kiss mixer running ST at 106. [place] is patent and draining to gravity, IV sites L hand and wrist are clean dry and intact, saline locked. Patient is on fall, aspiration and contact precautions, bed in the low and locked position with alarm on and call light next to patient on the bed. Will follow plan of care.
[2020-03-29 07:39] VITALS: BP 100/57
--- NOTE | 2020-03-29 08:09 | Infectious Diseases Prog Note ---
Assessment/Plan 74yo F with: Febrile, persistent - most likely 2/2 worsening sacral decub, all other w/u neg Leukocytosis, persistent Thrombocytosis, increasing >> improving Sepsis Left lower lung infiltrate Acute on chronic resp failure SP trach MRSA bacteremia DEBBIE cancelled as family refused RML cavitation, not seen on CT chest 03/11 BCx +MRSA Resp cx +PsA (S-Zosyn, I-merissa and cefepime) UCx 30-40k ACB (colonizer) COVID rapid Ag neg CXR: Midline tracheostomy. Small left pleural effusion. Hyperinflation with flattening of the diaphragms and emphysema, consistent with COPD. No lobar infiltrate. 03/12 BCx NTD 03/13 C.dif neg 03/13 BCx NTD 03/14 BCx NTD 03/14 CT A/P: 1. Sacrococcygeal decubitus ulcers with associated osteomyelitis. 2. Small left pleural effusion. Left lower lobe atelectasis. 3. Bladder wall thickening. Foci of gas in the bladder. Correlate for recent instrumentation versus cystitis. Lung bases: Small nodular focus of cavitation in the right middle lobe. This may be secondary to infection. Recommend continued follow-up. Emphysematous changes in the lung bases. 1.2 cm nodular focus with some central cavitation in the right middle lobe. Pleural space: Small left pleural effusion. Left lower lobe atelectasis. 03/14 TTE: No vegetations, thickened valves 03/17 CXR: 1. Unchanged tracheostomy. 2. Mildly more pronounced linear interstitial prominence could represent atypical infection or interstitial pulmonary edema in the proper clinical context. 3. Unchanged hyperinflation. 4. Unchanged mild retrocardiac atelectasis without or with consolidation. 03/20 BCx NTD 03/20 CT chest: Centrilobular emphysema seen throughout both lungs with with an upper lobe predominance, indicating extensive COPD changes. Mosaic attenuation pattern in the upper lobes probably related to COPD, although this is a nonspecific finding. Dense consolidation and atelectasis of much of the left lower lobe. This could represent pneumonia. Groundglass opacities in the inferior left upper lobe. These could represent areas of acute inflammation, or could represent post inflammatory changes. 8mm nodule in the right middle lobe, also described on prior CT scan. This previously demonstrated a cavity. Cavitation currently not evident. Differential considerations include neoplasm, acute or chronic inflammatory lesion. Recommend at a minimum follow-up CT scan in 6 months 03/21 Resp cx +Serratia and PsA (S-Zosyn) 03/21 SPC changed 03/22 UA/UCx +yeast 03/27 Indium scan: Limited exam, as described. No definite abnormality to explain stated clinical history of leukocytosis Worsening sacral decub ulceration, likely cause of ongoing low-grade fevers BUE and BLE neg for DVT 03/21 MRSA nares positive VDRF S/p trach/PEG Bed bound Sacral decub ulceration w/ underlying OM Plan: Cont levofloxacin #7/7 to cover for prior found ACB in UCx given ongoing fevers Cont Zyvox #7, for MRSA bacteremia, duration 6 weeks given inability to r/o endocarditis without DEBBIE, end date = 04/21/20 Trend platelets while on Zyvox, if decreasing will put back on vanco IV 03/28 SP Zosyn #10 for pna 03/22 Sp IV vancomycin #11 03/14 SP cefepime #4 Appreciate Wound Care/Surgery input on worsening sacral decub - this is likely the cause of ongoing fevers Agree with hospice evaluation if family decides Trend WBC Trend plts Trend temp curve Monitor CBC/CMP Monitor temp curve, hemodynamics Monitor resp status D/w RN and Dr. Matta Thank you for this consult. [facility] will continue to follow. Subjective Allergies: Coded Allergies: No Known Allergies (Unverified , 03/11/20) Tmax 100.6 WBC 16, stable Plts 421, improving (but on linezolid too) NAD on vent Sacral decub evaluated, clean but larger than on admission Soft stools Objective Last 24 Hour Vital Signs Date Time Temp Pulse Resp B/P (MAP) Pulse Ox O2 Delivery O2 Flow Rate FiO2 03/29/20 07:41 Mechanical Ventilator 03/29/20 07:41 35 03/29/20 07:39 97.5 106 22 100/57 (71) 100 03/29/20 05:32 113 121/71 03/29/20 04:00 103 03/29/20 04:00 35 03/29/20 04:00 98.2 100 21 100/59 (73) 100 03/29/20 04:00 Mechanical Ventilator 03/29/20 03:04 102 21 35 03/29/20 01:44 Mechanical Ventilator 03/29/20 00:07 103 03/29/20 00:00 Mechanical Ventilator 03/29/20 00:00 99.1 104 23 102/57 (72) 100 03/29/20 00:00 35 03/28/20 22:53 104 24 35 03/28/20 22:00 98 97/56 03/28/20 20:00 35 03/28/20 20:00 98.2 99 24 128/71 (90) 100 03/28/20 20:00 Mechanical Ventilator 03/28/20 20:00 100 03/28/20 18:47 103 27 35 03/28/20 16:00 Mechanical Ventilator 03/28/20 16:00 98.1 96 22 101/59 (73) 97 03/28/20 16:00 35 03/28/20 15:43 95 03/28/20 15:15 99 22 35 03/28/20 14:19 92 118/76 03/28/20 12:00 35 03/28/20 12:00 Mechanical Ventilator 03/28/20 12:00 92 03/28/20 12:00 97.9 104 20 118/76 (90) 100 03/28/20 10:43 97 23 35 03/28/20 10:01 100.6 Height (Feet): 5 Height (Inches): 5.00 Weight (Pounds): 147 Gen: NAD in bed HEENT: NCAT, trach + secretions CV: RRR Pulm: CTAB Abd: Soft, NTND, +PEG +SPC Ext: No c/c/e Skin: Stage 4 sacral decub ulceration - larger than on admission but clean Neuro: Awake, not interactive Laboratory Tests Test 03/28/20 11:45 03/28/20 11:49 03/28/20 17:44 03/28/20 23:28 Miscellaneous Test Pending POC Whole Blood Glucose Pending 147 MG/DL (74-106) H 180 MG/DL (74-106) H Test 03/29/20 03:40 03/29/20 05:05 White Blood Count 16.1 K/UL (4.8-10.8) H Red Blood Count 3.16 M/UL (4.20-5.40) L Hemoglobin 8.5 G/DL (12.0-16.0) L Hematocrit 26.0 % (37.0-47.0) L Mean Corpuscular Volume 82 FL (80-99) Mean Corpuscular Hemoglobin 26.9 PG (27.0-31.0) L Mean Corpuscular Hemoglobin Concent 32.7 G/DL (32.0-36.0) Red Cell Distribution Width 19.0 % (11.6-14.8) H Platelet Count 421 K/UL (150-450) Mean Platelet Volume 7.7 FL (6.5-10.1) Neutrophils (%) (Auto) 72.8 % (45.0-75.0) Lymphocytes (%) (Auto) 12.2 % (20.0-45.0) L Monocytes (%) (Auto) 4.4 % (1.0-10.0) Eosinophils (%) (Auto) 10.1 % (0.0-3.0) H Basophils (%) (Auto) 0.4 % (0.0-2.0) Sodium Level 138 MMOL/L (136-145) Potassium Level 4.4 MMOL/L (3.5-5.1) Chloride Level 104 MMOL/L (98-107) Carbon Dioxide Level 29 MMOL/L (21-32) Anion Gap 5 mmol/L (5-15) Blood Urea Nitrogen 17 mg/dL (7-18) Creatinine 0.9 MG/DL (0.55-1.30) Estimat Glomerular Filtration Rate > 60 mL/min (>60) Glucose Level 156 MG/DL (74-106) H Calcium Level 8.9 MG/DL (8.5-10.1) POC Whole Blood Glucose 143 MG/DL (74-106) H Current Medications Medications (Trade) Dose Ordered Sig/Zaki Route PRN Reason Start Time Stop Time Status Last Admin Dose Admin Acetaminophen (Tylenol) 650 mg Q6H PRN GT Temp >100.5, Mild Pain 03/11/20 06:30 04/10/20 06:29 03/28/20 09:31 Ascorbic Acid (Vitamin C) 500 mg DAILY ORAL 03/28/20 09:00 04/27/20 08:59 03/28/20 08:55 Aspirin (ASA) 81 mg DAILY GT 03/11/20 09:00 04/25/20 08:59 03/28/20 08:55 Calcitonin [place] (Miacalcin) 1 sprays DAILY NASAL 03/13/20 11:00 06/11/20 10:59 03/28/20 08:56 Dextrose (Dextrose 50%) 25 ml Q30M PRN IV Hypoglycemia 03/13/20 23:30 06/11/20 23:29 Dextrose (Dextrose 50%) 50 ml Q30M PRN IV Hypoglycemia 03/13/20 23:30 06/11/20 23:29 Diltiazem HCl (Cardizem Tab) 30 mg EVERY 8 HOURS GT 03/24/20 14:00 04/23/20 13:59 03/29/20 05:32 Diphenhydramine HCl (Benadryl) 25 mg Q8H PRN ORAL Itching 03/14/20 15:00 04/13/20 14:59 03/14/20 15:50 Famotidine (Pepcid) 20 mg BID GT 03/18/20 18:00 06/09/20 08:59 03/28/20 18:23 Insulin Aspart (NovoLOG) Q6HR SUBQ 03/14/20 00:00 06/12/20 00:00 03/29/20 05:27 Levofloxacin 150 ml @ 150 mls/hr Q48H IVPB 03/22/20 09:00 03/29/20 08:59 03/28/20 08:54 Linezolid 300 ml @ 300 mls/hr Q12HR IVPB 03/22/20 13:00 04/02/20 12:59 03/28/20 20:34 Multivitamins (Multivitamins) 1 tab DAILY ORAL 03/28/20 09:00 04/27/20 08:59 03/28/20 08:55 Ondansetron HCl (Zofran) 4 mg Q4H PRN IVP Nausea & Vomiting 03/11/20 06:30 04/10/20 06:29 Zinc Sulfate (Zinc Sulfate) 220 mg DAILY ORAL 03/28/20 09:00 04/07/20 09:00 03/28/20 08:55 Shirley Villegas M.D. Mar 29, 2020 08:09
--- NOTE | 2020-03-29 08:10 | NUR ---
RD ASSESSMENT & RECOMMENDATIONS SEE CARE ACTIVITY FOR COMPLETE ASSESSMENT DAILY ESTIMATED NEEDS: Needs based on Advanced wound, critical care, underweight, OPERATING ROOM SPECIALIST TF/ 50kg 30-40 kcals/kg 0660-5508 total kcals 1.5-2 g protein/kg 75-100 g total protein 25-35ml/kcal mL/kg 7878-0515 total fluid mLs NUTRITION DIAGNOSIS: Increased kcal/prot needs R/T underweight status, wound healing as evidenced by pt @83% IBW w/ underweight BMI of 17.2, admitted w/ multiple wounds, including stage 4 sacral wound. (CURRENT TF: Glucerna 1.2 @ 70ml/hr x 24 hrs) ENTERAL NUTRITION RECOMMENDATIONS: Glucerna 1.2 @ 65ml/hr x 24 hrs to provide 1560ml, 1872kcal, 94g prot, 1256ml free water * Continue current rate of 70ml/hr w/ appropriate tolerance. * Should residuals increase or pt show signs of intolerance, rec to lower TF to rate of 65ml/hr and meet 100% est kcal and pro needs. * HOB over 30 degrees/ water flush per MD * add Shen BID * Beneprotein not available. ADDITIONAL RECOMMENDATIONS: * Per SNF: HT=64" and CY=872# vs EMR wt of 147lbs -> Recalibrate bed scale for accurate CBW * Wound healing: TF rec @ goal will provide 100% RDI add Vit C 500mg BID, continue ZnSO4 220gm QD x 10 days Shen BID via PEG * Monitor BGs, consider NISS: h/o DM -> NISS now added .
[2020-03-29] MEDS: Zinc Sulfate 220mg ORAL SCH (08:13)
[2020-03-29] MEDS: Ascorbic Acid 500mg tab ORAL SCH (08:13)
[2020-03-29] MEDS: Aspirin Baby 81mg GT SCH (08:13)
--- NOTE | 2020-03-29 08:32 | NUR ---
NURSE NOTES:Alia[place] wound healing supplement given with morning medications.
--- NOTE | 2020-03-29 11:22 | Internal Med Progress Note ---
Subjective Date of Service: Mar 29, 2020 Physician Name JennPiyush Attending Physician Jesus Lutz MD Current Medications Medications (Trade) Dose Ordered Sig/Zaki Route PRN Reason Start Time Stop Time Status Last Admin Dose Admin Acetaminophen (Tylenol) 650 mg Q6H PRN GT Temp >100.5, Mild Pain 03/11/20 06:30 04/10/20 06:29 03/28/20 09:31 Ascorbic Acid (Vitamin C) 500 mg DAILY ORAL 03/28/20 09:00 04/27/20 08:59 03/29/20 08:13 Aspirin (ASA) 81 mg DAILY GT 03/11/20 09:00 04/25/20 08:59 03/29/20 08:13 Calcitonin [place] (Miacalcin) 1 sprays DAILY NASAL 03/13/20 11:00 06/11/20 10:59 03/29/20 08:14 Dextrose (Dextrose 50%) 25 ml Q30M PRN IV Hypoglycemia 03/13/20 23:30 06/11/20 23:29 Dextrose (Dextrose 50%) 50 ml Q30M PRN IV Hypoglycemia 03/13/20 23:30 06/11/20 23:29 Diltiazem HCl (Cardizem Tab) 30 mg EVERY 8 HOURS GT 03/24/20 14:00 04/23/20 13:59 03/29/20 05:32 Diphenhydramine HCl (Benadryl) 25 mg Q8H PRN ORAL Itching 03/14/20 15:00 04/13/20 14:59 03/14/20 15:50 Famotidine (Pepcid) 20 mg BID GT 03/18/20 18:00 06/09/20 08:59 03/29/20 08:13 Insulin Aspart (NovoLOG) Q6HR SUBQ 03/14/20 00:00 06/12/20 00:00 03/29/20 05:27 Linezolid 300 ml @ 300 mls/hr Q12HR IVPB 03/22/20 13:00 04/02/20 12:59 03/29/20 08:13 Multivitamins (Multivitamins) 1 tab DAILY ORAL 03/28/20 09:00 04/27/20 08:59 03/29/20 08:13 Ondansetron HCl (Zofran) 4 mg Q4H PRN IVP Nausea & Vomiting 03/11/20 06:30 04/10/20 06:29 Zinc Sulfate (Zinc Sulfate) 220 mg DAILY ORAL 03/28/20 09:00 04/07/20 09:00 03/29/20 08:13 Allergies: Coded Allergies: No Known Allergies (Unverified , 03/11/20) ROS Limited/Unobtainable: Yes Subjective 74 YO F trach dependent admitted with hypoxic respiratory failure. Now pneum onia and sepsis. Cover for Int Med-Dr Lutz. Step down unit. Diarrhea reported overnight Objective Last Vital Signs Date Time Temp Pulse Resp B/P (MAP) Pulse Ox O2 Delivery O2 Flow Rate FiO2 03/29/20 08:00 107 03/29/20 07:41 Mechanical Ventilator 03/29/20 07:41 35 03/29/20 07:39 97.5 22 100/57 (71) 100 Laboratory Tests Test 03/28/20 11:45 03/28/20 11:49 03/28/20 17:44 03/28/20 23:28 Miscellaneous Test Pending POC Whole Blood Glucose Pending 147 MG/DL (74-106) H 180 MG/DL (74-106) H Test 03/29/20 03:40 03/29/20 05:05 White Blood Count 16.1 K/UL (4.8-10.8) H Red Blood Count 3.16 M/UL (4.20-5.40) L Hemoglobin 8.5 G/DL (12.0-16.0) L Hematocrit 26.0 % (37.0-47.0) L Mean Corpuscular Volume 82 FL (80-99) Mean Corpuscular Hemoglobin 26.9 PG (27.0-31.0) L Mean Corpuscular Hemoglobin Concent 32.7 G/DL (32.0-36.0) Red Cell Distribution Width 19.0 % (11.6-14.8) H Platelet Count 421 K/UL (150-450) Mean Platelet Volume 7.7 FL (6.5-10.1) Neutrophils (%) (Auto) 72.8 % (45.0-75.0) Lymphocytes (%) (Auto) 12.2 % (20.0-45.0) L Monocytes (%) (Auto) 4.4 % (1.0-10.0) Eosinophils (%) (Auto) 10.1 % (0.0-3.0) H Basophils (%) (Auto) 0.4 % (0.0-2.0) Sodium Level 138 MMOL/L (136-145) Potassium Level 4.4 MMOL/L (3.5-5.1) Chloride Level 104 MMOL/L (98-107) Carbon Dioxide Level 29 MMOL/L (21-32) Anion Gap 5 mmol/L (5-15) Blood Urea Nitrogen 17 mg/dL (7-18) Creatinine 0.9 MG/DL (0.55-1.30) Estimat Glomerular Filtration Rate > 60 mL/min (>60) Glucose Level 156 MG/DL (74-106) H Calcium Level 8.9 MG/DL (8.5-10.1) POC Whole Blood Glucose 143 MG/DL (74-106) H l Intake and Output 03/28/20 03/29/20 19:00 07:00 Intake Total 1237.5 ml 1240 ml Output Total 950 ml 750 ml Balance 287.5 ml 490 ml Free Water 370 ml 100 ml IV Total 27.5 ml 300 ml Tube Feeding 840 ml 840 ml Output Urine Total 950 ml 750 ml # Bowel Movements 1 2 Objective PHYSICAL EXAMINATION: GENERAL: The patient is a thin-appearing female who is intubated and nonverbal. HEENT: Eyes, pupils are equal and responsive to light and accommodation. Extraocular movements are intact. NECK: Supple without lymphadenopathy. Tracheostomy is in place. CHEST: Mech vent; Diffuse wheezes bilaterally without rhonchi. CARDIOVASCULAR: Tachycardic, regular rhythm. S1, S2 are normal without murmurs, rubs, or gallops. ABDOMEN: Soft, nontender, and nondistended. Positive bowel sounds. No evidence of hepatosplenomegaly. Currently, no rebound or guarding noted. EXTREMITIES: Negative for clubbing, cyanosis, or edema. RECTAL/GENITAL: Not performed. NEUROLOGIC: Unable to assess. chest x-ray revealed left lower lobe consolidation consistent with pneumonia Assessment/Plan Assessment/Plan ASSESSMENT: This is a 74-year-old female. 1. Left lower lobe pneumonia. 2. Respiratory failure. 3. Hypernatremia. 4. Renal failure. 5. Hypoxemia. 6. Tracheostomy dependence. 7. Chronic obstructive pulmonary disease. 8. Diabetes type 2. 9. Parkinson disease. 10. Gout. 11. Glaucoma. 12. Sacral decubitus ulcer stage IV. 13. History of intracranial hemorrhage. 14. Hydrocephalus. 15. sepsis=MRSA 16. UTI=MDR acenitobacter 17. diarrhea TREATMENT: 1. Left lower lobe pneumonia/respiratory failure/sepsis. Pulmonary consultation =Dr. Patti Matta. ABX= continue linezolid and levaquin. S/P vanco and zosyn -see ID note Infectious disease=Dr. Villegas. We will follow recommendations of Infectious Disease and Pulmonary. 2. Hypernatremia. Hypernatremia may be secondary to renal failure versus dehydration. Nephrology consultation =. 3. Renal failure nephrology consultation =Dr. Huntley. 4. Tracheostomy dependence. 5. Chronic obstructive pulmonary disease. 6. Diabetes type 2. NovoLog sliding scale has been instituted. 7. Parkinson disease. 8. Gout. Continue allopurinol as above. 9. Glaucoma. 10. Sacral decubitus ulcer stage IV. A general surgery consultation has been obtained with Dr. Chris Hunter. 11. History of intracranial hemorrhage. 12. DEBBIE refused by patient's daughter; cardiology=Trista Alejandre and Rachel 13. Await indium scan result 14. Stool for C. Diff and cult Piyush Barajas MD Mar 29, 2020 11:22
[2020-03-29 11:37] VITALS: BP 127/71
--- NOTE | 2020-03-29 12:16 | Pulmonolgy Critical Care Note ---
Critical Care - Asmt/Plan Problems: (1) Persistent fever (2) Acute on chronic respiratory failure (3) Staphylococcus aureus bacteremia (4) Sepsis (5) Chronic respiratory failure requiring continuous mechanical ventilation through tracheostomy (6) Stage 4 decubitus ulcer (7) Diabetes mellitus (8) Parkinson's disease dementia (9) Gout (10) Idiopathic obstructive hydrocephalus (11) Severe protein-calorie malnutrition (12) History of intracranial hemorrhage (13) Chronic vegetative state Respiratory: monitor respiratory rate, adjust FIO2, CXR Cardiac: continue to monitor HR/BP, d/c teletypesetter monitor Renal: F/U I&O, keep IV fluid, check electrolytes Infectious Disease: check cultures Gastrointestinal: continue feedings/current rate Endocrine: monitor blood sugar, check TSH, continue sliding scale insulin Hematologic: monitor H/H, transfuse if hgb<8.5 Neurologic: PRN Ativan, keep patient comfortable Time Spent (Minutes): 40 Notes Reviewed: cereal chemist, cardio, renal Discussed with: nurses, consultants, case therapistbanking manager - Objective Last 24 Hour Vital Signs Date Time Temp Pulse Resp B/P (MAP) Pulse Ox O2 Delivery O2 Flow Rate FiO2 03/29/20 11:37 99.9 110 24 127/71 (89) 100 03/29/20 11:37 35 03/29/20 11:36 Mechanical Ventilator 03/29/20 10:30 99 22 35 03/29/20 08:00 107 03/29/20 07:41 Mechanical Ventilator 03/29/20 07:41 35 03/29/20 07:39 97.5 106 22 100/57 (71) 100 03/29/20 07:04 98 20 35 03/29/20 05:32 113 121/71 03/29/20 04:00 103 03/29/20 04:00 35 03/29/20 04:00 98.2 100 21 100/59 (73) 100 03/29/20 04:00 Mechanical Ventilator 03/29/20 03:04 102 21 35 03/29/20 01:44 Mechanical Ventilator 03/29/20 00:07 103 03/29/20 00:00 Mechanical Ventilator 03/29/20 00:00 99.1 104 23 102/57 (72) 100 03/29/20 00:00 35 03/28/20 22:53 104 24 35 03/28/20 22:00 98 97/56 03/28/20 20:00 35 03/28/20 20:00 98.2 99 24 128/71 (90) 100 03/28/20 20:00 Mechanical Ventilator 03/28/20 20:00 100 03/28/20 18:47 103 27 35 03/28/20 16:00 Mechanical Ventilator 03/28/20 16:00 98.1 96 22 101/59 (73) 97 03/28/20 16:00 35 03/28/20 15:43 95 03/28/20 15:15 99 22 35 03/28/20 14:19 92 118/76 Status: awake Condition: improving HEENT: atraumatic Neck: full ROM Lungs: clear Heart: HR/BP stable, HR/BP unstable Abdomen: soft, active bowel sounds Extremities: no C/C/E Accucheck: 148 Critical Care - Subjective ROS Limited/Unobtainable: Yes Condition: critical EKG Rhythm: Sinus Rhythm FI02: 35 Vent Support Breath Rate: 16 Vent Support Mode: AC Vent Tidal Volume: 400 Sputum Amount: Small PEEP: 5.0 PIP: 18 Tube Feeding Amount: 70 I&O: Intake and Output 03/28/20 03/29/20 19:00 07:00 Intake Total 1237.5 ml 1240 ml Output Total 950 ml 750 ml Balance 287.5 ml 490 ml Free Water 370 ml 100 ml IV Total 27.5 ml 300 ml Tube Feeding 840 ml 840 ml Output Urine Total 950 ml 750 ml # Bowel Movements 1 2 CXR: indium scan: Normal marrow activity is demonstrated. Normal activity is seen within the liver and spleen. There is asymmetric appearance of activity within the pelvis due to positioning issues. No definite abnormal focal tracer accumulation is demonstrated Labs: Laboratory Tests Test 03/28/20 17:44 03/28/20 23:28 03/29/20 03:40 03/29/20 05:05 POC Whole Blood Glucose 147 MG/DL (74-106) H 180 MG/DL (74-106) H 143 MG/DL (74-106) H White Blood Count 16.1 K/UL (4.8-10.8) H Red Blood Count 3.16 M/UL (4.20-5.40) L Hemoglobin 8.5 G/DL (12.0-16.0) L Hematocrit 26.0 % (37.0-47.0) L Mean Corpuscular Volume 82 FL (80-99) Mean Corpuscular Hemoglobin 26.9 PG (27.0-31.0) L Mean Corpuscular Hemoglobin Concent 32.7 G/DL (32.0-36.0) Red Cell Distribution Width 19.0 % (11.6-14.8) H Platelet Count 421 K/UL (150-450) Mean Platelet Volume 7.7 FL (6.5-10.1) Neutrophils (%) (Auto) 72.8 % (45.0-75.0) Lymphocytes (%) (Auto) 12.2 % (20.0-45.0) L Monocytes (%) (Auto) 4.4 % (1.0-10.0) Eosinophils (%) (Auto) 10.1 % (0.0-3.0) H Basophils (%) (Auto) 0.4 % (0.0-2.0) Sodium Level 138 MMOL/L (136-145) Potassium Level 4.4 MMOL/L (3.5-5.1) Chloride Level 104 MMOL/L (98-107) Carbon Dioxide Level 29 MMOL/L (21-32) Anion Gap 5 mmol/L (5-15) Blood Urea Nitrogen 17 mg/dL (7-18) Creatinine 0.9 MG/DL (0.55-1.30) Estimat Glomerular Filtration Rate > 60 mL/min (>60) Glucose Level 156 MG/DL (74-106) H Calcium Level 8.9 MG/DL (8.5-10.1) Test 03/29/20 11:35 POC Whole Blood Glucose 148 MG/DL (74-106) H Patti Matta MD Mar 29, 2020 12:15
--- NOTE | 2020-03-29 13:33 | Nephrology Progress Note ---
Assessment/Plan Problem List: (1) Hypercalcemia (2) Hypernatremia (3) Sepsis (4) UTI (urinary tract infection) (5) Stage 4 decubitus ulcer (6) Acute on chronic respiratory failure (7) Chronic vegetative state (8) Severe protein-calorie malnutrition Assessment Azotemia and hypernatremia indicative of severe dehydration and free water deficit Acute on chronic respiratory failure, on mechanical ventilation Severe underlying anemia Sepsis Stage IV decubitus Idiopathic obstructive hydrocephalus, history of intracranial hemorrhage Diabetes mellitus Parkinson's disease, dementia Protein calorie malnutrition Plan March 29: Labs reviewed. Renal parameters stable. Continue per consultants. March 28: Labs reviewed. Stable from renal standpoint of view. March 27: Medication list reviewed. Labs reviewed. Stable from renal standpoint of view. March 26: Patient remains stable from renal standpoint of view. Labs and medication list reviewed. March 25: Labs reviewed. Renal parameters stable. Continue per consultants. March 24: Labs reviewed. Renal parameters stable. Continue per consultants. March 23: Labs reviewed. Renal parameters are stable. Continue per consultants. March 22: Labs reviewed. Serum sodium 151. D5W IV given. Continue per consultants. March 21: Labs reviewed. Renal parameters stable. Continue per consultants. March 20: Labs reviewed. Serum sodium lower 147. Serum calcium stable. Continue as is. March 19: Labs reviewed. Serum sodium unchanged at 150. Another liter of D5W ordered. Serum calcium stable. Continue as is. March 18: Labs reviewed. Serum sodium 150. 1 L of D5W IV ordered. Serum calcium stable. Continue as is. March 17: Labs reviewed. Renal parameters stable. Continue to watch serum calcium. Continue per consultants. March 16: Labs reviewed. Serum calcium stable. Medication list reviewed. Abnormal electrolyte addressed. Continue current management. March 15: Labs reviewed. Serum calcium lowering. Abnormal electrolytes addressed. Continue per consultants. March 14: Labs reviewed. Status quo. Serum calcium lowering. Magnesium and potassium supplement ordered. Continue per current treatment plan. March 13: 1 dose of pamidronate 60 mg for high calcium IV ordered. Labs reviewed. Medication list reviewed. Electrolytes improving. Hemoglobin higher after transfusion. Nasal calcitonin initiated March 12: D5W at 75 cc an hour Monitor electrolytes Monitor hemoglobin hematocrit Gastric support Consider transfusion Continue per orders Parameters for blood pressure medication Antibiotics per ID Subjective ROS Limited/Unobtainable: Yes Objective Objective Last 24 Hour Vital Signs Date Time Temp Pulse Resp B/P (MAP) Pulse Ox O2 Delivery O2 Flow Rate FiO2 03/29/20 12:00 112 03/29/20 11:37 99.9 110 24 127/71 (89) 100 03/29/20 11:37 35 03/29/20 11:36 Mechanical Ventilator 03/29/20 10:30 99 22 35 03/29/20 08:00 107 03/29/20 07:41 Mechanical Ventilator 03/29/20 07:41 35 03/29/20 07:39 97.5 106 22 100/57 (71) 100 03/29/20 07:04 98 20 35 03/29/20 05:32 113 121/71 03/29/20 04:00 103 03/29/20 04:00 35 03/29/20 04:00 98.2 100 21 100/59 (73) 100 03/29/20 04:00 Mechanical Ventilator 03/29/20 03:04 102 21 35 03/29/20 01:44 Mechanical Ventilator 03/29/20 00:07 103 03/29/20 00:00 Mechanical Ventilator 03/29/20 00:00 99.1 104 23 102/57 (72) 100 03/29/20 00:00 35 03/28/20 22:53 104 24 35 03/28/20 22:00 98 97/56 03/28/20 20:00 35 03/28/20 20:00 98.2 99 24 128/71 (90) 100 03/28/20 20:00 Mechanical Ventilator 03/28/20 20:00 100 03/28/20 18:47 103 27 35 03/28/20 16:00 Mechanical Ventilator 03/28/20 16:00 98.1 96 22 101/59 (73) 97 03/28/20 16:00 35 03/28/20 15:43 95 03/28/20 15:15 99 22 35 03/28/20 14:19 92 118/76 Intake and Output 03/28/20 03/29/20 19:00 07:00 Intake Total 1237.5 ml 1240 ml Output Total 950 ml 750 ml Balance 287.5 ml 490 ml Free Water 370 ml 100 ml IV Total 27.5 ml 300 ml Tube Feeding 840 ml 840 ml Output Urine Total 950 ml 750 ml # Bowel Movements 1 2 Current Medications Medications (Trade) Dose Ordered Sig/Zaki Route PRN Reason Start Time Stop Time Status Last Admin Dose Admin Acetaminophen (Tylenol) 650 mg Q6H PRN GT Temp >100.5, Mild Pain 03/11/20 06:30 04/10/20 06:29 03/28/20 09:31 Ascorbic Acid (Vitamin C) 500 mg DAILY ORAL 03/28/20 09:00 04/27/20 08:59 03/29/20 08:13 Aspirin (ASA) 81 mg DAILY GT 03/11/20 09:00 04/25/20 08:59 03/29/20 08:13 Calcitonin Backus (Miacalcin) 1 sprays DAILY NASAL 03/13/20 11:00 06/11/20 10:59 03/29/20 08:14 Dextrose (Dextrose 50%) 25 ml Q30M PRN IV Hypoglycemia 03/13/20 23:30 06/11/20 23:29 Dextrose (Dextrose 50%) 50 ml Q30M PRN IV Hypoglycemia 03/13/20 23:30 06/11/20 23:29 Diltiazem HCl (Cardizem Tab) 30 mg EVERY 8 HOURS GT 03/24/20 14:00 04/23/20 13:59 03/29/20 05:32 Diphenhydramine HCl (Benadryl) 25 mg Q8H PRN ORAL Itching 03/14/20 15:00 04/13/20 14:59 03/14/20 15:50 Famotidine (Pepcid) 20 mg BID GT 03/18/20 18:00 06/09/20 08:59 03/29/20 08:13 Insulin Aspart (NovoLOG) Q6HR SUBQ 03/14/20 00:00 06/12/20 00:00 03/29/20 12:02 Linezolid 300 ml @ 300 mls/hr Q12HR IVPB 03/22/20 13:00 04/02/20 12:59 03/29/20 08:13 Multivitamins (Multivitamins) 1 tab DAILY ORAL 03/28/20 09:00 04/27/20 08:59 03/29/20 08:13 Ondansetron HCl (Zofran) 4 mg Q4H PRN IVP Nausea & Vomiting 03/11/20 06:30 04/10/20 06:29 Zinc Sulfate (Zinc Sulfate) 220 mg DAILY ORAL 03/28/20 09:00 04/07/20 09:00 03/29/20 08:13 Laboratory Tests 03/28/20 17:44: POC Whole Blood Glucose 147H 03/28/20 23:28: POC Whole Blood Glucose 180H 03/29/20 03:40: White Blood Count 16.1H, Red Blood Count 3.16L, Hemoglobin 8.5L, Hematocrit 26.0L, Mean Corpuscular Volume 82, Mean Corpuscular Hemoglobin 26.9L, Mean Corpuscular Hemoglobin Concent 32.7, Red Cell Distribution Width 19.0H, Platelet Count 421, Mean Platelet Volume 7.7, Neutrophils (%) (Auto) 72.8, Lymphocytes (%) (Auto) 12.2L, Monocytes (%) (Auto) 4.4, Eosinophils (%) (Auto) 10.1H, Basophils (%) (Auto) 0.4, Sodium Level 138, Potassium Level 4.4, Chloride Level 104, Carbon Dioxide Level 29, Anion Gap 5, Blood Urea Nitrogen 17, Creatinine 0.9, Estimat Glomerular Filtration Rate > 60, Glucose Level 156H, Calcium Level 8.9 03/29/20 05:05: POC Whole Blood Glucose 143H 03/29/20 11:35: POC Whole Blood Glucose 148H Height (Feet): 5 Height (Inches): 5.00 Weight (Pounds): 147 General Appearance: no apparent distress EENT: other - Trach to vent Cardiovascular: tachycardia Respiratory/Chest: decreased breath sounds Abdomen: distended Mathew Huntley MD Mar 29, 2020 13:33
--- NOTE | 2020-03-29 14:30 | Cardiac Electrophysiology PN ---
Assessment/Plan Assessment/Plan 1. MRSA bacteremia. Most recent blood culture from March 13, 2020 showed no growth. Echocardiogram showed ejection fraction of 60-65% with no clear vegetation. DEBBIE cancelled as family refused. On iv Abx. Indium scan no clear source 2. VDRF , status post tracheostomy.On 40% Fio2 3. Dysphagia, status post PEG placement. 4. History of intracranial hemorrhage. 5. COPD. 6. Diabetes. 7. Glaucoma. 8. Sacral decubitus stage IV. 9. Hypertension, on Cardizem 10. Transient SVT. On Cardizem [address] RN and Dr Villegas Is being considered for hospice care Subjective Subjective On the Vent in sinus tach Fio2 35% and PEEP 5.Still febrile with high WBC Family refused DEBBIE. Had episodes of SVT lasting less than 20 seconds 03/23/20. Indium scan was limited but no clear source Objective Last 24 Hour Vital Signs Date Time Temp Pulse Resp B/P (MAP) Pulse Ox O2 Delivery O2 Flow Rate FiO2 03/29/20 14:17 112 121/75 03/29/20 12:00 112 03/29/20 11:37 99.9 110 24 127/71 (89) 100 03/29/20 11:37 35 03/29/20 11:36 Mechanical Ventilator 03/29/20 10:30 99 22 35 03/29/20 08:00 107 03/29/20 07:41 Mechanical Ventilator 03/29/20 07:41 35 03/29/20 07:39 97.5 106 22 100/57 (71) 100 03/29/20 07:04 98 20 35 03/29/20 05:32 113 121/71 03/29/20 04:00 103 03/29/20 04:00 35 03/29/20 04:00 98.2 100 21 100/59 (73) 100 03/29/20 04:00 Mechanical Ventilator 03/29/20 03:04 102 21 35 03/29/20 01:44 Mechanical Ventilator 03/29/20 00:07 103 03/29/20 00:00 Mechanical Ventilator 03/29/20 00:00 99.1 104 23 102/57 (72) 100 03/29/20 00:00 35 03/28/20 22:53 104 24 35 03/28/20 22:00 98 97/56 03/28/20 20:00 35 03/28/20 20:00 98.2 99 24 128/71 (90) 100 03/28/20 20:00 Mechanical Ventilator 03/28/20 20:00 100 03/28/20 18:47 103 27 35 03/28/20 16:00 Mechanical Ventilator 03/28/20 16:00 98.1 96 22 101/59 (73) 97 03/28/20 16:00 35 03/28/20 15:43 95 03/28/20 15:15 99 22 35 Intake and Output 03/28/20 03/29/20 19:00 07:00 Intake Total 1237.5 ml 1240 ml Output Total 950 ml 750 ml Balance 287.5 ml 490 ml Free Water 370 ml 100 ml IV Total 27.5 ml 300 ml Tube Feeding 840 ml 840 ml Output Urine Total 950 ml 750 ml # Bowel Movements 1 2 Laboratory Tests Test 03/28/20 17:44 03/28/20 23:28 03/29/20 03:40 03/29/20 05:05 POC Whole Blood Glucose 147 MG/DL (74-106) H 180 MG/DL (74-106) H 143 MG/DL (74-106) H White Blood Count 16.1 K/UL (4.8-10.8) H Red Blood Count 3.16 M/UL (4.20-5.40) L Hemoglobin 8.5 G/DL (12.0-16.0) L Hematocrit 26.0 % (37.0-47.0) L Mean Corpuscular Volume 82 FL (80-99) Mean Corpuscular Hemoglobin 26.9 PG (27.0-31.0) L Mean Corpuscular Hemoglobin Concent 32.7 G/DL (32.0-36.0) Red Cell Distribution Width 19.0 % (11.6-14.8) H Platelet Count 421 K/UL (150-450) Mean Platelet Volume 7.7 FL (6.5-10.1) Neutrophils (%) (Auto) 72.8 % (45.0-75.0) Lymphocytes (%) (Auto) 12.2 % (20.0-45.0) L Monocytes (%) (Auto) 4.4 % (1.0-10.0) Eosinophils (%) (Auto) 10.1 % (0.0-3.0) H Basophils (%) (Auto) 0.4 % (0.0-2.0) Sodium Level 138 MMOL/L (136-145) Potassium Level 4.4 MMOL/L (3.5-5.1) Chloride Level 104 MMOL/L (98-107) Carbon Dioxide Level 29 MMOL/L (21-32) Anion Gap 5 mmol/L (5-15) Blood Urea Nitrogen 17 mg/dL (7-18) Creatinine 0.9 MG/DL (0.55-1.30) Estimat Glomerular Filtration Rate > 60 mL/min (>60) Glucose Level 156 MG/DL (74-106) H Calcium Level 8.9 MG/DL (8.5-10.1) Test 03/29/20 11:35 POC Whole Blood Glucose 148 MG/DL (74-106) H Objective HEAD AND NECK: No JVD. LUNGS: Coarse rhonchi. Status post tracheostomy. CARDIOVASCULAR: Regular S1 and S2 with no gallop or rub. Status post PEG. EXTREMITIES: 1+ pitting edema with sacral decubitus. Shay Alejadnre MD Mar 29, 2020 14:30
--- NOTE | 2020-03-29 14:31 | NUR ---
NURSE NOTES:Juvern given via G tube.
--- NOTE | 2020-03-29 15:11 | NUR ---
CASE MANAGEMENT:REVIEW 03/29/20 SI: MRSA SEPSIS TRACH/VENT/GT DEPENDENT 99.9 112 24 127/71 100% ON VENT SUPPORT 35% FIO2 WBC+16.1 H/H-8.5/26.0 IS: IV LINEZOLID Q12 CARDIZEM GT Q8HRS : STEP DOWN UNIT DCP: FROM [facility]
[2020-03-29 16:00] VITALS: BP 105/58
--- NOTE | 2020-03-29 16:21 | NUR ---
NURSE NOTES:New G tube feed hung with new line.
--- NOTE | 2020-03-29 18:47 | Surgery Progress Note ---
Surgery Progress Note Subjective Symptoms: tolerating diet, passing flatus Objective Last 24 Hour Vital Signs Date Time Temp Pulse Resp B/P (MAP) Pulse Ox O2 Delivery O2 Flow Rate FiO2 03/29/20 16:00 99.1 106 22 105/58 (74) 100 03/29/20 16:00 113 03/29/20 15:51 35 03/29/20 15:50 Mechanical Ventilator 03/29/20 15:18 96 22 35 03/29/20 14:17 112 121/75 03/29/20 12:00 112 03/29/20 11:37 99.9 110 24 127/71 (89) 100 03/29/20 11:37 35 03/29/20 11:36 Mechanical Ventilator 03/29/20 10:30 99 22 35 03/29/20 08:00 107 03/29/20 07:41 Mechanical Ventilator 03/29/20 07:41 35 03/29/20 07:39 97.5 106 22 100/57 (71) 100 03/29/20 07:04 98 20 35 03/29/20 05:32 113 121/71 03/29/20 04:00 103 03/29/20 04:00 35 03/29/20 04:00 98.2 100 21 100/59 (73) 100 03/29/20 04:00 Mechanical Ventilator 03/29/20 03:04 102 21 35 03/29/20 01:44 Mechanical Ventilator 03/29/20 00:07 103 03/29/20 00:00 Mechanical Ventilator 03/29/20 00:00 99.1 104 23 102/57 (72) 100 03/29/20 00:00 35 03/28/20 22:53 104 24 35 03/28/20 22:00 98 97/56 03/28/20 20:00 35 03/28/20 20:00 98.2 99 24 128/71 (90) 100 03/28/20 20:00 Mechanical Ventilator 03/28/20 20:00 100 I&O Intake and Output 03/28/20 03/29/20 19:00 07:00 Intake Total 1237.5 ml 1240 ml Output Total 950 ml 750 ml Balance 287.5 ml 490 ml Free Water 370 ml 100 ml IV Total 27.5 ml 300 ml Tube Feeding 840 ml 840 ml Output Urine Total 950 ml 750 ml # Bowel Movements 1 2 Dressing: saturated Cardiovascular: RSR Respiratory: decreased breath sounds Abdomen: non-tender, present bowel sounds Extremities: no tenderness, no cyanosis Laboratory Tests Test 03/28/20 23:28 03/29/20 03:40 03/29/20 05:05 03/29/20 11:35 POC Whole Blood Glucose 180 MG/DL (74-106) H 143 MG/DL (74-106) H 148 MG/DL (74-106) H White Blood Count 16.1 K/UL (4.8-10.8) H Red Blood Count 3.16 M/UL (4.20-5.40) L Hemoglobin 8.5 G/DL (12.0-16.0) L Hematocrit 26.0 % (37.0-47.0) L Mean Corpuscular Volume 82 FL (80-99) Mean Corpuscular Hemoglobin 26.9 PG (27.0-31.0) L Mean Corpuscular Hemoglobin Concent 32.7 G/DL (32.0-36.0) Red Cell Distribution Width 19.0 % (11.6-14.8) H Platelet Count 421 K/UL (150-450) Mean Platelet Volume 7.7 FL (6.5-10.1) Neutrophils (%) (Auto) 72.8 % (45.0-75.0) Lymphocytes (%) (Auto) 12.2 % (20.0-45.0) L Monocytes (%) (Auto) 4.4 % (1.0-10.0) Eosinophils (%) (Auto) 10.1 % (0.0-3.0) H Basophils (%) (Auto) 0.4 % (0.0-2.0) Sodium Level 138 MMOL/L (136-145) Potassium Level 4.4 MMOL/L (3.5-5.1) Chloride Level 104 MMOL/L (98-107) Carbon Dioxide Level 29 MMOL/L (21-32) Anion Gap 5 mmol/L (5-15) Blood Urea Nitrogen 17 mg/dL (7-18) Creatinine 0.9 MG/DL (0.55-1.30) Estimat Glomerular Filtration Rate > 60 mL/min (>60) Glucose Level 156 MG/DL (74-106) H Calcium Level 8.9 MG/DL (8.5-10.1) Plan Problems: (1) Hypernatremia (2) Sepsis (3) UTI (urinary tract infection) (4) Stage 4 decubitus ulcer Assessment & Plan: Pt presented with trach,contractures, multiple Pressure injuries in various stages.Skin assessed under collar of trach and no skin breakdown evident. Full thickness Sacral Pressure injury with undermining clockwise 6-9o'clock.Wound is irregular shaped.Base of wound is 95% granular,5% slough at undermined borders.Small area of bone exposure noted at base of wound. Small amt serosanguineous exudate noted. No odor noted. An area of slough noted along borders. Edges are otherwise adherent and flat to base of wound with surrounding dry, darker skin tone.(L)11.2cm x (W)-8.7cm x(D)1.6cm ,undermining clockwise 6-9o'clock by 1.8cm @8o'clock. Partial thickness Pressure injury noted to R ischium. Base of wound is moist ,viable with surrounding shearing and non-blanchable erythema.(L)6.5cm x (W)4.5cm. Partial thickness Pressure injury L Ischium(L)1.2cm x (W)1.5cm. Base of wound is moist and viable with surrounding non-blanchable erythema with additional s hearing. Resolving Pressure Injury medial L Knee. Base of wound is pink and dry . Resolving Pressure injury medial R knee. Dry pink epithelial with scattered moist, granular areas within base of wound.No odor or exudate noted.(L)4.3cm x (W)2.6cm. DTPI L lateral Malleolus(L)2.5cm x (W)3.5cm.Base of Pressure injury is indurated and maroon in colour. Non-Blanchable erythema periwound. DTPI L achilles extending into Plantar aspect of L heel(L)9.7cm x (W)10.4cm. Base of Pressure injury is black at achilles area with scattered purpuric areas, and is otherwise maroon and indurated. Resolving Pressure injury medial R Malleolus. [place] epithelial at base of wound. Stable dry eschar noted to R Hallux (L)1.2cm x (W01.3cm. Periwound skin tone is darker without erythema or induration. Tx.Plan: Cleanse Sacral wound with Saline. Loosely pack with Therahoney impregnated Kerlix(Attention to undermined area). Apply Moisture Barrier Periwound. Cover with Optifoam drsg. Change Daily and prn. Apply Moisture Barrier Paste to R and L Ischial wounds. Cover each site with Optifoam drsg. Change every 3 days and prn. Apply Cavilon Skin Barrier to medial aspects of R and L Knee. Cover each wound with Optifoam drsg.Change every 7 days and prn. Apply Cavilon Skin Barrier to R Hallux, R Heel, R and L Malleoli, and Both heels. Cover each affected area with Optifoam drsgs. Change drsgs every 7 days and prn. Reposition at least every [address] tolerated[address] Pillow between Knees. Off-load heels with Pillow. CT noted. osteo in sacrum cont abx osteo chronic will monitor and asses if debridement needed ABDOMEN: Liver: Unremarkable. No mass. Gallbladder and bile ducts: Unremarkable. No calcified stones. No ductal dilation. Pancreas: Unremarkable. No mass. No ductal dilation. Spleen: Spleen is small. Adrenals: Unremarkable. No mass. Kidneys and ureters: Renal cysts and subcentimeter low-attenuation foci, too small to characterize. No hydronephrosis. Stomach and bowel: Unremarkable. No obstruction. No mucosal thickening. PELVIS: Appendix: No findings to suggest acute appendicitis. Bladder: Bladder wall thickening. Foci of gas in the bladder. Correlate for recent instrumentation versus cystitis. Reproductive: Unremarkable as visualized. ABDOMEN and PELVIS: Intraperitoneal space: Unremarkable. No free air. No significant fluid collection. Bones/joints: Sacrococcygeal decubitus ulcers with associated osteomyelitis. There is some underlying bone thinning and sclerosis in the distal sacrum and coccyx underlying the decubitus ulcers. No acute fracture. No dislocation. Soft tissues: Unremarkable. Vasculature: Moderate plaque abdominal aorta and branches. No abdominal aortic aneurysm. Lymph nodes: Unremarkable. No enlarged lymph nodes. Tubes, lines and devices: Gastrostomy tube within the gastric body. IMPRESSION: 1. Sacrococcygeal decubitus ulcers with associated osteomyelitis. 2. Small left pleural effusion. Left lower lobe atelectasis. 3. Bladder wall thickening. Foci of gas in the bladder. Correlate for recent instrumentation versus cystitis. DAILY ESTIMATED NEEDS: Needs based on Advanced wound, critical care, underweight, [employer] TF/ 45.5kg 30-40 kcals/kg 7213-5985 total kcals 1.5-2 g protein/kg 68-91 g total protein 30-40 mL/kg 3142-9623 total fluid mLs NUTRITION DIAGNOSIS: Increased kcal/prot needs R/T underweight status, wound healing as evidenced by pt @83% IBW w/ underweight BMI of 17.2, admitted w/ multiple wounds, including stage 4 sacral wound. CURRENT TF:Glucerna 1.2 @ 45ml/hr x 24 hrs ENTERAL NUTRITION RECOMMENDATIONS: Glucerna 1.2 @ 60ml/hr x 24 hrs to provide 1440ml, 1728kcal, 86g prot, 1159ml free water * Increase goal rate to 60ml/hr x 24 hrs to meet 100% est kcal/prot needs -> 1.9g prot/kg * HOB over 30 degrees/ water flush per MD * add Shen BID ADDITIONAL RECOMMENDATIONS: * Per SNF: HT=64" and LU=340# vs EMR wt of 147lbs -> rec daily calibrated bedscale wt * Wound healing: TF rec @ goal will provide 100% RDI Vit C 500mg BID, ZnSO4 220gm QD x 10 days Shen BID via PEG * Monitor BGs, consider NISS: h/o DM * Monitor lytes, replete as needed (5) Chronic respiratory failure requiring continuous mechanical ventilation through tracheostomy (6) History of intracranial hemorrhage (7) Idiopathic obstructive hydrocephalus (8) Gout (9) Diabetes mellitus (10) Parkinson's disease dementia (11) Acute on chronic respiratory failure (12) Chronic vegetative state (13) Severe protein-calorie malnutrition Assessment & Plan: DAILY ESTIMATED NEEDS: Needs based on Advanced wound, critical care, underweight, [employer] TF/ 45.5kg 30-40 kcals/kg 0050-1326 total kcals 1.5-2 g protein/kg 68-91 g total protein 30-40 mL/kg 3848-2858 total fluid mLs NUTRITION DIAGNOSIS: Increased kcal/prot needs R/T underweight status, wound healing as evidenced by pt @83% IBW w/ underweight BMI of 17.2, admitted w/ multiple wounds, including stage 4 sacral wound. CURRENT TF:Glucerna 1.2 @ 60ml/hr x 24 hrs ENTERAL NUTRITION RECOMMENDATIONS: Glucerna 1.2 @ 60ml/hr x 24 hrs to provide 1440ml, 1728kcal, 86g prot, 1159ml free water * Maintain current TF rate as tolerated to meet 100% est kcal/prot needs -> 1.9g prot/kg. * HOB over 30 degrees/ water flush per MD * add Shen BID ADDITIONAL RECOMMENDATIONS: * Per SNF: HT=64" and JC=699# vs EMR wt of 147lbs -> Recalibrate bed scale for accurate CBW * Wound healing: TF rec @ goal will provide 100% RDI add Vit C 500mg BID, continue ZnSO4 220gm QD x 10 days Shen BID via PEG * Monitor BGs, consider NISS: h/o DM -> NISS now added * Increase water flushes for elevated Na (14) Hypercalcemia (15) Staphylococcus aureus bacteremia Assessment & Plan: unlikely related to wound checking often to ensure not worsening good local care being provided cont abx There is bilateral mostly upper lobe centrilobular emphysema. Mosaic attenuation pattern is seen throughout the bilateral upper lobes. There is consolidation and atelectasis of most of the left lower lobe. A few groundglass opacities are seen in the inferior left upper lobe. There is some compressive atelectasis at the right lung base with elevation of the right hemidiaphragm. There is a subpleural 8 mm nodular opacity in the right middle lobe. On recent abdomen pelvis CT scan, this demonstrated a cavity. The cavity is not evident currently There is a tracheostomy. The pleural spaces are clear. The heart size is normal. No pericardial effusion. No mediastinal or hilar mass or adenopathy. The ascending thoracic aorta is mildly ectatic, measuring up to 3.8 cm in diameter. The included portion of the thyroid is unremarkable. No axillary or chest wall mass or adenopathy demonstrated. There is smooth thoracic kyphosis without focal compression abnormality. The bones are unremarkable. Included upper abdominal anatomy demonstrates contrast in the colon from prior CT of the abdomen. There is a upper pole right renal cyst Impression: Centrilobular emphysema seen throughout both lungs with with an upper lobe predominance, indicating extensive COPD changes Mosaic attenuation pattern in the upper lobes probably related to COPD, although this is a nonspecific finding Dense consolidation and atelectasis of much of the left lower lobe. This could represent pneumonia. Groundglass opacities in the inferior left upper lobe. These could represent areas of acute inflammation, or could represent post inflammatory changes. 8mm nodule in the right middle lobe, also described on prior CT scan. This previously demonstrated a cavity. Cavitation currently not evident. Differential considerations include neoplasm, acute or chronic inflammatory lesion. Recommend at a minimum follow-up CT scan in 6 months Tracheostomy Kyphosis Right upper pole renal cyst Chris Hunter Mar 29, 2020 18:47
--- NOTE | 2020-03-29 19:14 | NUR ---
NURSE NOTES: Received report from Vlad Scott, pt. in bed awake, with eyes open, appears to be non-verbal, no signs or symptoms of acute cardiac or respiratory distress noted, bed alarm on, side rails up x's 3 and safety brakes engaged, call light within easy reach, pt. is ST on monitor at 115, repositioned and turned pt., pt. has G tube running Glucerna 1.2 at 70cc/hr - no residual noted, Collier catheter intact and draining to gravity, pt. appears clean and dry, left hand 24G and left wrist 20G IV both intact and patent- TKO, aspiration precautions observed- HOB elevated, skin precautions observed, will continue to monitor pt. and with plan of care.
--- NOTE | 2020-03-29 19:34 | NUR ---
NURSE HAND-OFF REPORT: Important Events on Shift: Patient Status: Stable Diet: Glucerna 1.2 @70ML/HR Pending Orders: Pending Results/Labs:C diff and Stool culture results pending. Pending MD notification: Latest Vital Signs: Temperature 99.1 , Pulse 101 , B/P 105 /58 , Respiratory Rate 28 , O2 SAT 100 , Mechanical Ventilator, O2 Flow Rate . Vital Sign Comment: EKG Rhythm: Sinus Tachycardia Rhythm change?: N MD Notified?: N -Dr. Hill MARQUES Response: Latest Ochoa Fall Score: 70 Fall Risk: High Risk Safety Measures: Call light Within Reach, Bed Alarm Zone 2, Side Rails Side Rails x3, Bed position Low and Locked. Fall Precautions: Yellow Socks Yellow Gown Door Sign Patient Fall Education Report given to ADILENE Arellano.
[2020-03-29 20:00] VITALS: BP 127/68
[2020-03-29] MEDS: Acetaminophen 650mg/20.3ml GT PRN (20:03)
--- NOTE | 2020-03-29 21:17 | General Progress Note ---
Subjective Allergies: Coded Allergies: No Known Allergies (Unverified , 03/11/20) Subjective above noted tolerating TF non communicative Objective Last 24 Hour Vital Signs Date Time Temp Pulse Resp B/P (MAP) Pulse Ox O2 Delivery O2 Flow Rate FiO2 03/29/20 21:00 98 126/71 03/29/20 20:33 98.9 03/29/20 20:00 Mechanical Ventilator 03/29/20 20:00 35 03/29/20 20:00 99.8 101 22 127/68 (87) 100 03/29/20 19:04 114 03/29/20 18:58 101 28 35 03/29/20 16:00 99.1 106 22 105/58 (74) 100 03/29/20 16:00 113 03/29/20 15:51 35 03/29/20 15:50 Mechanical Ventilator 03/29/20 15:18 96 22 35 03/29/20 14:17 112 121/75 03/29/20 12:00 112 03/29/20 11:37 99.9 110 24 127/71 (89) 100 03/29/20 11:37 35 03/29/20 11:36 Mechanical Ventilator 03/29/20 10:30 99 22 35 03/29/20 08:00 107 03/29/20 07:41 Mechanical Ventilator 03/29/20 07:41 35 03/29/20 07:39 97.5 106 22 100/57 (71) 100 03/29/20 07:04 98 20 35 03/29/20 05:32 113 121/71 03/29/20 04:00 103 03/29/20 04:00 35 03/29/20 04:00 98.2 100 21 100/59 (73) 100 03/29/20 04:00 Mechanical Ventilator 03/29/20 03:04 102 21 35 03/29/20 01:44 Mechanical Ventilator 03/29/20 00:07 103 03/29/20 00:00 Mechanical Ventilator 03/29/20 00:00 99.1 104 23 102/57 (72) 100 03/29/20 00:00 35 03/28/20 22:53 104 24 35 03/28/20 22:00 98 97/56 Intake and Output 03/28/20 03/29/20 19:00 07:00 Intake Total 1237.5 ml 1240 ml Output Total 950 ml 750 ml Balance 287.5 ml 490 ml Free Water 370 ml 100 ml IV Total 27.5 ml 300 ml Tube Feeding 840 ml 840 ml Output Urine Total 950 ml 750 ml # Bowel Movements 1 2 Laboratory Tests 03/28/20 23:28: POC Whole Blood Glucose 180H 03/29/20 03:40: White Blood Count 16.1H, Red Blood Count 3.16L, Hemoglobin 8.5L, Hematocrit 26.0L, Mean Corpuscular Volume 82, Mean Corpuscular Hemoglobin 26.9L, Mean Corpuscular Hemoglobin Concent 32.7, Red Cell Distribution Width 19.0H, Platelet Count 421, Mean Platelet Volume 7.7, Neutrophils (%) (Auto) 72.8, Lymphocytes (%) (Auto) 12.2L, Monocytes (%) (Auto) 4.4, Eosinophils (%) (Auto) 10.1H, Basophils (%) (Auto) 0.4, Sodium Level 138, Potassium Level 4.4, Chloride Level 104, Carbon Dioxide Level 29, Anion Gap 5, Blood Urea Nitrogen 17, Creatinine 0.9, Estimat Glomerular Filtration Rate > 60, Glucose Level 156H, Calcium Level 8.9 03/29/20 05:05: POC Whole Blood Glucose 143H 03/29/20 11:35: POC Whole Blood Glucose 148H Height (Feet): 5 Height (Inches): 5.00 Weight (Pounds): 147 Objective elderly woman NCAT supple, trach CTA RR abd soft, (+)GT no edema (+) multiple decubs Assessment/Plan Assessment/Plan: Assessment History of intracranial hemorrhage, s/p gastrostomy, OB (+) stools status post tracheostomy, chronic obstructive pulmonary disease, type 2 diabetes, Parkinson's, gout, glaucoma, history of stage IV sacral decubitus ulceration, gout Fever Low albumin Recommendations - continue TF - GT care - elevate HOB - Monitor H&H - no GI w/u per family decision - re check albumin and prealbumin periodically Deanne Rivera MD Mar 29, 2020 21:17
[2020-03-30] VITALS: BP 126/75
--- NOTE | 2020-03-30 02:00 | NUR ---
NURSE NOTES: bed bath given, linens changed, oral care provided, repositioned and turned pt.- pt. appears to be sating well on current vent settings at 100%- no distress noted, pt. appears to be resting comfortably- aspiration and skin precautions observed, will continue to monitor pt. and with plan of care.
[2020-03-30 03:52] VITALS: BP 107/67
[2020-03-30] MEDS: NovoLOG Insulin Flexpen SUBQ SCH ×4 (05:15→23:24)
[2020-03-30] MEDS: dilTIAZem HCl 30mg tab GT SCH ×3 (05:15→21:09)
[2020-03-30 05:31] LABS: BLOOD UREA NITROGEN 30 mg/dL (7-18); CALCIUM 9.4 MG/DL (8.5-10.1); CARBON DIOXIDE 27 MMOL/L (21-32); CHLORIDE 104 MMOL/L (98-107); CREATININE 0.9 MG/DL (0.55-1.30); POTASSIUM 4.5 MMOL/L (3.5-5.1); SODIUM 140 MMOL/L (136-145)
[2020-03-30 06:00] LABS: HEMATOCRIT 25.6 % (37.0-47.0); HEMOGLOBIN 8.6 G/DL (12.0-16.0); MEAN CORPUSCULAR VOLUME 80 FL (80-99); PLATELET COUNT 501 K/UL (150-450); RED CELL DISTRIBUTION WIDTH 19.1 % (11.6-14.8); WHITE BLOOD COUNT 18.3 K/UL (4.8-10.8)
--- NOTE | 2020-03-30 07:09 | NUR ---
NURSE HAND-OFF REPORT: Important Events on Shift:fever-resolved Patient Status: fair Diet:Glucerna 1.2 Pending Orders: Pending Results/Labs: Pending MD notification: Latest Vital Signs: Temperature 97.2 , Pulse 110 , B/P 134 /92 , Respiratory Rate 20 , O2 SAT 100 , Mechanical Ventilator, O2 Flow Rate . Vital Sign Comment: EKG Rhythm: Sinus Tachycardia Rhythm change?: MD Notified?: MD Response: Latest Ochoa Fall Score: 70 Fall Risk: High Risk Safety Measures: Call light Within Reach, Bed Alarm Zone 2, Side Rails Side Rails x3, Bed position Low and Locked. Fall Precautions: Yellow Socks Yellow Gown Door Sign Patient Fall Education Report given to Vlad tomas, aware to f/u on any abnormal am labs.
--- NOTE | 2020-03-30 07:17 | NUR ---
NURSE NOTES: Received report from ADILENE Sanchez. Pt is lying in bed in mid-fowlers position, awake, eyes open, not in distress. Pt scratches skin causing it to bleed. Mitten in right hand is put on. ST on the shelter monitor. Tolerating vent setting of AC16, TV400, 35% FiO2, PEEP 5 and saturating 100%. Vital signs are stable, Peripheral IVs intact and patent. G-tube is intact and patent running Glucerna 1.2 @ 60cc/hr. Rectal tube is intact and patent. Rectal tube is intact and patent with brown, watery stool. Bed is locked and in lowest position, bed alarm on, call light is with the pt. Will continue to monitor pt. Will continue with the plan of care.
[2020-03-30 08:00] VITALS: BP 128/65
--- NOTE | 2020-03-30 08:02 | Infectious Diseases Prog Note ---
Assessment/Plan 74yo F with: Febrile, persistent - most likely 2/2 worsening sacral decub, all other w/u neg Leukocytosis, persistent Thrombocytosis, increasing >> improving Sepsis Left lower lung infiltrate Acute on chronic resp failure SP trach MRSA bacteremia DEBBIE cancelled as family refused RML cavitation, not seen on CT chest 03/11 BCx +MRSA Resp cx +PsA (S-Zosyn, I-merissa and cefepime) UCx 30-40k ACB (colonizer) COVID rapid Ag neg CXR: Midline tracheostomy. Small left pleural effusion. Hyperinflation with flattening of the diaphragms and emphysema, consistent with COPD. No lobar infiltrate. 03/12 BCx NTD 03/13 C.dif neg 03/13 BCx NTD 03/14 BCx NTD 03/14 CT A/P: 1. Sacrococcygeal decubitus ulcers with associated osteomyelitis. 2. Small left pleural effusion. Left lower lobe atelectasis. 3. Bladder wall thickening. Foci of gas in the bladder. Correlate for recent instrumentation versus cystitis. Lung bases: Small nodular focus of cavitation in the right middle lobe. This may be secondary to infection. Recommend continued follow-up. Emphysematous changes in the lung bases. 1.2 cm nodular focus with some central cavitation in the right middle lobe. Pleural space: Small left pleural effusion. Left lower lobe atelectasis. 03/14 TTE: No vegetations, thickened valves 03/17 CXR: 1. Unchanged tracheostomy. 2. Mildly more pronounced linear interstitial prominence could represent atypical infection or interstitial pulmonary edema in the proper clinical context. 3. Unchanged hyperinflation. 4. Unchanged mild retrocardiac atelectasis without or with consolidation. 03/20 BCx NTD 03/20 CT chest: Centrilobular emphysema seen throughout both lungs with with an upper lobe predominance, indicating extensive COPD changes. Mosaic attenuation pattern in the upper lobes probably related to COPD, although this is a nonspecific finding. Dense consolidation and atelectasis of much of the left lower lobe. This could represent pneumonia. Groundglass opacities in the inferior left upper lobe. These could represent areas of acute inflammation, or could represent post inflammatory changes. 8mm nodule in the right middle lobe, also described on prior CT scan. This previously demonstrated a cavity. Cavitation currently not evident. Differential considerations include neoplasm, acute or chronic inflammatory lesion. Recommend at a minimum follow-up CT scan in 6 months 03/21 Resp cx +Serratia and PsA (S-Zosyn) 03/21 SPC changed 03/22 UA/UCx +yeast 03/27 Indium scan: Limited exam, as described. No definite abnormality to explain stated clinical history of leukocytosis R/o C.dif 03/29 C.dif neg Worsening sacral decub ulceration, likely cause of ongoing low-grade fevers BUE and BLE neg for DVT 03/21 MRSA nares positive VDRF S/p trach/PEG Bed bound Sacral decub ulceration w/ underlying OM Plan: Stop levofloxacin #7/7 to cover for prior found ACB in UCx given ongoing fevers Cont Zyvox #8, for MRSA bacteremia, duration 6 weeks given inability to r/o endocarditis without DEBBIE, end date = 04/21/20 Trend platelets while on Zyvox, if decreasing will put back on vanco IV 03/30 SP levofloxacin #7 for ACB in UCx 03/28 SP Zosyn #10 for pna 03/22 Sp IV vancomycin #11 03/14 SP cefepime #4 Appreciate Wound Care/Surgery input on worsening sacral decub - this is likely the cause of ongoing fevers Agree with hospice evaluation if family decides Trend WBC Trend plts Trend temp curve Monitor CBC/CMP Monitor temp curve, hemodynamics Monitor resp status D/w RN Thank you for this consult. [facility] will continue to follow. Subjective Allergies: Coded Allergies: No Known Allergies (Unverified , 03/11/20) AF WBC 18, stable Plts 501, stable NAD on vent C.dif neg Objective Last 24 Hour Vital Signs Date Time Temp Pulse Resp B/P (MAP) Pulse Ox O2 Delivery O2 Flow Rate FiO2 03/30/20 05:15 110 134/92 03/30/20 04:00 Mechanical Ventilator 03/30/20 04:00 35 03/30/20 03:52 97.2 102 20 107/67 (80) 100 03/30/20 03:33 106 03/30/20 03:00 105 33 35 03/30/20 00:00 35 03/30/20 00:00 Mechanical Ventilator 03/30/20 00:00 98.1 91 20 126/75 (92) 100 03/29/20 23:25 89 03/29/20 23:07 88 21 35 03/29/20 21:00 98 126/71 03/29/20 20:33 98.9 03/29/20 20:00 Mechanical Ventilator 03/29/20 20:00 35 03/29/20 20:00 99.8 101 22 127/68 (87) 100 03/29/20 19:04 114 03/29/20 18:58 101 28 35 03/29/20 16:00 99.1 106 22 105/58 (74) 100 03/29/20 16:00 113 03/29/20 15:51 35 03/29/20 15:50 Mechanical Ventilator 03/29/20 15:18 96 22 35 03/29/20 14:17 112 121/75 03/29/20 12:00 112 03/29/20 11:37 99.9 110 24 127/71 (89) 100 03/29/20 11:37 35 03/29/20 11:36 Mechanical Ventilator 03/29/20 10:30 99 22 35 Height (Feet): 5 Height (Inches): 5.00 Weight (Pounds): 147 Gen: NAD in bed HEENT: NCAT, trach + secretions CV: RRR Pulm: CTAB Abd: Soft, NTND, +PEG +SPC Ext: No c/c/e Skin: Stage 4 sacral decub ulceration - larger than on admission but clean Neuro: Awake, not interactive Laboratory Tests Test 03/29/20 11:35 03/29/20 22:51 03/30/20 03:25 03/30/20 04:40 POC Whole Blood Glucose 148 MG/DL (74-106) H 173 MG/DL (74-106) H 171 MG/DL (74-106) H White Blood Count 18.3 K/UL (4.8-10.8) H Red Blood Count 3.20 M/UL (4.20-5.40) L Hemoglobin 8.6 G/DL (12.0-16.0) L Hematocrit 25.6 % (37.0-47.0) L Mean Corpuscular Volume 80 FL (80-99) Mean Corpuscular Hemoglobin 27.0 PG (27.0-31.0) Mean Corpuscular Hemoglobin Concent 33.7 G/DL (32.0-36.0) Red Cell Distribution Width 19.1 % (11.6-14.8) H Platelet Count 501 K/UL (150-450) H Mean Platelet Volume 7.2 FL (6.5-10.1) Neutrophils (%) (Auto) % (45.0-75.0) Lymphocytes (%) (Auto) % (20.0-45.0) Monocytes (%) (Auto) % (1.0-10.0) Eosinophils (%) (Auto) % (0.0-3.0) Basophils (%) (Auto) % (0.0-2.0) Neutrophils % (Manual) Pending Lymphocytes % (Manual) Pending Platelet Estimate Pending Platelet Morphology Pending Sodium Level 140 MMOL/L (136-145) Potassium Level 4.5 MMOL/L (3.5-5.1) Chloride Level 104 MMOL/L (98-107) Carbon Dioxide Level 27 MMOL/L (21-32) Blood Urea Nitrogen 30 mg/dL (7-18) H Creatinine 0.9 MG/DL (0.55-1.30) Estimat Glomerular Filtration Rate > 60 mL/min (>60) Glucose Level 167 MG/DL (74-106) H Calcium Level 9.4 MG/DL (8.5-10.1) Current Medications Medications (Trade) Dose Ordered Sig/Zaki Route PRN Reason Start Time Stop Time Status Last Admin Dose Admin Acetaminophen (Tylenol) 650 mg Q6H PRN GT Temp >100.5, Mild Pain 03/11/20 06:30 04/10/20 06:29 03/29/20 20:03 Ascorbic Acid (Vitamin C) 500 mg DAILY ORAL 03/28/20 09:00 04/27/20 08:59 03/29/20 08:13 Aspirin (ASA) 81 mg DAILY GT 03/11/20 09:00 04/25/20 08:59 03/29/20 08:13 Calcitonin [place] (Miacalcin) 1 sprays DAILY NASAL 03/13/20 11:00 06/11/20 10:59 03/29/20 08:14 Dextrose (Dextrose 50%) 25 ml Q30M PRN IV Hypoglycemia 03/13/20 23:30 06/11/20 23:29 Dextrose (Dextrose 50%) 50 ml Q30M PRN IV Hypoglycemia 03/13/20 23:30 06/11/20 23:29 Diltiazem HCl (Cardizem Tab) 30 mg EVERY 8 HOURS GT 03/24/20 14:00 04/23/20 13:59 03/30/20 05:15 Diphenhydramine HCl (Benadryl) 25 mg Q8H PRN ORAL Itching 03/14/20 15:00 04/13/20 14:59 03/14/20 15:50 Famotidine (Pepcid) 20 mg BID GT 03/18/20 18:00 06/09/20 08:59 03/29/20 17:27 Insulin Aspart (NovoLOG) Q6HR SUBQ 03/14/20 00:00 06/12/20 00:00 03/30/20 05:15 Linezolid 300 ml @ 300 mls/hr Q12HR IVPB 03/22/20 13:00 04/21/20 23:59 03/29/20 20:00 Multivitamins (Multivitamins) 1 tab DAILY ORAL 03/28/20 09:00 04/27/20 08:59 03/29/20 08:13 Ondansetron HCl (Zofran) 4 mg Q4H PRN IVP Nausea & Vomiting 03/11/20 06:30 04/10/20 06:29 Zinc Sulfate (Zinc Sulfate) 220 mg DAILY ORAL 03/28/20 09:00 04/07/20 09:00 03/29/20 08:13 Shirley Villegas M.D. Mar 30, 2020 08:01
[2020-03-30] MEDS: Aspirin Baby 81mg GT SCH (08:12)
[2020-03-30] MEDS: Ascorbic Acid 500mg tab ORAL SCH (08:14)
[2020-03-30] MEDS: Zinc Sulfate 220mg ORAL SCH (08:14)
--- NOTE | 2020-03-30 10:00 | NUR ---
NURSE NOTES: Initial assessment done. Morning medications administered per order. Vital signs remain stable. Temperature 99.0*F. Pt given sponge bath and cold compress done. Temp lowered to 98.3. Will continue to closely monitor pt.
--- NOTE | 2020-03-30 10:57 | Surgery Progress Note ---
Surgery Progress Note Subjective Additional Comments leukocytosis tolerating tf c diff negative no nn/v Objective Last 24 Hour Vital Signs Date Time Temp Pulse Resp B/P (MAP) Pulse Ox O2 Delivery O2 Flow Rate FiO2 03/30/20 08:00 35 03/30/20 08:00 99.0 100 20 128/65 (86) 100 03/30/20 08:00 Mechanical Ventilator 03/30/20 07:01 102 22 35 03/30/20 05:15 110 134/92 03/30/20 04:00 Mechanical Ventilator 03/30/20 04:00 35 03/30/20 03:52 97.2 102 20 107/67 (80) 100 03/30/20 03:33 106 03/30/20 03:00 105 33 35 03/30/20 00:00 35 03/30/20 00:00 Mechanical Ventilator 03/30/20 00:00 98.1 91 20 126/75 (92) 100 03/29/20 23:25 89 03/29/20 23:07 88 21 35 03/29/20 21:00 98 126/71 03/29/20 20:33 98.9 03/29/20 20:00 Mechanical Ventilator 03/29/20 20:00 35 03/29/20 20:00 99.8 101 22 127/68 (87) 100 03/29/20 19:04 114 03/29/20 18:58 101 28 35 03/29/20 16:00 99.1 106 22 105/58 (74) 100 03/29/20 16:00 113 03/29/20 15:51 35 03/29/20 15:50 Mechanical Ventilator 03/29/20 15:18 96 22 35 03/29/20 14:17 112 121/75 03/29/20 12:00 112 03/29/20 11:37 99.9 110 24 127/71 (89) 100 03/29/20 11:37 35 03/29/20 11:36 Mechanical Ventilator I&O Intake and Output 03/29/20 03/30/20 19:00 07:00 Intake Total 1320 ml 1190 ml Output Total 850 ml 850 ml Balance 470 ml 340 ml Free Water 480 ml 50 ml IV Total 300 ml Tube Feeding 840 ml 840 ml Output Urine Total 850 ml 650 ml Stool Total 200 ml # Bowel Movements 2 3 Cardiovascular: RSR Respiratory: decreased breath sounds Abdomen: soft, non-tender, present bowel sounds Extremities: no tenderness, no cyanosis Laboratory Tests Test 03/29/20 11:35 03/29/20 22:51 03/30/20 03:25 03/30/20 04:40 POC Whole Blood Glucose 148 MG/DL (74-106) H 173 MG/DL (74-106) H 171 MG/DL (74-106) H White Blood Count 18.3 K/UL (4.8-10.8) H Red Blood Count 3.20 M/UL (4.20-5.40) L Hemoglobin 8.6 G/DL (12.0-16.0) L Hematocrit 25.6 % (37.0-47.0) L Mean Corpuscular Volume 80 FL (80-99) Mean Corpuscular Hemoglobin 27.0 PG (27.0-31.0) Mean Corpuscular Hemoglobin Concent 33.7 G/DL (32.0-36.0) Red Cell Distribution Width 19.1 % (11.6-14.8) H Platelet Count 501 K/UL (150-450) H Mean Platelet Volume 7.2 FL (6.5-10.1) Neutrophils (%) (Auto) % (45.0-75.0) Lymphocytes (%) (Auto) % (20.0-45.0) Monocytes (%) (Auto) % (1.0-10.0) Eosinophils (%) (Auto) % (0.0-3.0) Basophils (%) (Auto) % (0.0-2.0) Differential Total Cells Counted 100 Neutrophils % (Manual) 70 % (45-75) Lymphocytes % (Manual) 10 % (20-45) L Monocytes % (Manual) 9 % (1-10) Eosinophils % (Manual) 11 % (0-3) H Basophils % (Manual) 0 % (0-2) Band Neutrophils 0 % (0-8) Platelet Estimate Increased H Platelet Morphology Normal Hypochromasia 1+ Anisocytosis 2+ Sodium Level 140 MMOL/L (136-145) Potassium Level 4.5 MMOL/L (3.5-5.1) Chloride Level 104 MMOL/L (98-107) Carbon Dioxide Level 27 MMOL/L (21-32) Blood Urea Nitrogen 30 mg/dL (7-18) H Creatinine 0.9 MG/DL (0.55-1.30) Estimat Glomerular Filtration Rate > 60 mL/min (>60) Glucose Level 167 MG/DL (74-106) H Calcium Level 9.4 MG/DL (8.5-10.1) Plan Problems: (1) Hypernatremia (2) Sepsis (3) UTI (urinary tract infection) (4) Stage 4 decubitus ulcer Assessment & Plan: Pt presented with trach,contractures, multiple Pressure injuries in various stages.Skin assessed under collar of trach and no skin breakdown evident. Full thickness Sacral Pressure injury with undermining clockwise 6-9o'clock.Wound is irregular shaped.Base of wound is 95% granular,5% slough at undermined borders.Small area of bone exposure noted at base of wound. Small amt serosanguineous exudate noted. No odor noted. An area of slough noted along borders. Edges are otherwise adherent and flat to base of wound with surrounding dry, darker skin tone.(L)11.2cm x (W)-8.7cm x(D)1.6cm ,undermining clockwise 6-9o'clock by 1.8cm @8o'clock. Partial thickness Pressure injury noted to R ischium. Base of wound is moist ,viable with surrounding shearing and non-blanchable erythema.(L)6.5cm x (W)4.5cm. Partial thickness Pressure injury L Ischium(L)1.2cm x (W)1.5cm. Base of wound is moist and viable with surrounding non-blanchable erythema with additional shearing. Resolving Pressure Injury medial L Knee. Base of wound is pink and dry . Resolving Pressure injury medial R knee. Dry pink epithelial with scattered moist, granular areas within base of wound.No odor or exudate noted.(L)4.3cm x (W)2.6cm. DTPI L lateral Malleolus(L)2.5cm x (W)3.5cm.Base of Pressure injury is indurated and maroon in colour. Non-Blanchable erythema periwound. DTPI L achilles extending into Plantar aspect of L heel(L)9.7cm x (W)10.4cm. Bas e of Pressure injury is black at achilles area with scattered purpuric areas, and is otherwise maroon and indurated. Resolving Pressure injury medial R Malleolus. Blue Sky epithelial at base of wound. Stable dry eschar noted to R Hallux (L)1.2cm x (W01.3cm. Periwound skin tone is darker without erythema or induration. Tx.Plan: Cleanse Sacral wound with Saline. Loosely pack with Therahoney impregnated Kerlix(Attention to undermined area). Apply Moisture Barrier Periwound. Cover with Optifoam drsg. C hange Daily and prn. Apply Moisture Barrier Paste to R and L Ischial wounds. Cover each site with Optifoam drsg. Change every 3 days and prn. Apply Cavilon Skin Barrier to medial aspects of R and L Knee. Cover each wound with Optifoam drsg.Change every 7 days and prn. Apply Cavilon Skin Barrier to R Hallux, R Heel, R and L Malleoli, and Both heels. Cover each affected area with Optifoam drsgs. Change drsgs every 7 days and prn. Reposition at least every [address] Pillow between Knees. Off-load heels with Pillow. CT noted. osteo in sacrum cont abx osteo chronic will monitor and asses if debridement needed ABDOMEN: Liver: Unremarkable. No mass. Gallbladder and bile ducts: Unremarkable. No calcified stones. No ductal dilation. Pancreas: Unremarkable. No mass. No ductal dilation. Spleen: Spleen is small. Adrenals: Unremarkable. No mass. Kidneys and ureters: Renal cysts and subcentimeter low-attenuation foci, too small to characterize. No hydronephrosis. Stomach and bowel: Unremarkable. No obstruction. No mucosal thickening. PELVIS: Appendix: No findings to suggest acute appendicitis. Bladder: Bladder wall thickening. Foci of gas in the bladder. Correlate for recent instrumentation versus cystitis. Reproductive: Unremarkable as visualized. ABDOMEN and PELVIS: Intraperitoneal space: Unremarkable. No free air. No significant fluid collection. Bones/joints: Sacrococcygeal decubitus ulcers with associated osteomyelitis. There is some underlying bone thinning and sclerosis in the distal sacrum and coccyx underlying the decubitus ulcers. No acute fracture. No dislocation. Soft tissues: Unremarkable. Vasculature: Moderate plaque abdominal aorta and branches. No abdominal aortic aneurysm. Lymph nodes: Unremarkable. No enlarged lymph nodes. Tubes, lines and devices: Gastrostomy tube within the gastric body. IMPRESSION: 1. Sacrococcygeal decubitus ulcers with associated osteomyelitis. 2. Small left pleural effusion. Left lower lobe atelectasis. 3. Bladder wall thickening. Foci of gas in the bladder. Correlate for recent instrumentation versus cystitis. DAILY ESTIMATED NEEDS: Needs based on Advanced wound, critical care, underweight, FACILITIES CUSTODIAN TF/ 45.5kg 30-40 kcals/kg 8136-6846 total kcals 1.5-2 g protein/kg 68-91 g total protein 30-40 mL/kg 7795-1647 total fluid mLs NUTRITION DIAGNOSIS: Increased kcal/prot needs R/T underweight status, wound healing as evidenced by pt @83% IBW w/ underweight BMI of 17.2, admitted w/ multiple wounds, including stage 4 sacral wound. CURRENT TF:Glucerna 1.2 @ 45ml/hr x 24 hrs ENTERAL NUTRITION RECOMMENDATIONS: Glucerna 1.2 @ 60ml/hr x 24 hrs to provide 1440ml, 1728kcal, 86g prot, 1159ml free water * Increase goal rate to 60ml/hr x 24 hrs to meet 100% est kcal/prot needs -> 1.9g prot/kg * HOB over 30 degrees/ water flush per MD * add Shen BID ADDITIONAL RECOMMENDATIONS: * Per SNF: HT=64" and CJ=960# vs EMR wt of 147lbs -> rec daily calibrated bedscale wt * Wound healing: TF rec @ goal will provide 100% RDI Vit C 500mg BID, ZnSO4 220gm QD x 10 days Shen BID via PEG * Monitor BGs, consider NISS: h/o DM * Monitor lytes, replete as needed (5) Chronic respiratory failure requiring continuous mechanical ventilation through tracheostomy (6) History of intracranial hemorrhage (7) Idiopathic obstructive hydrocephalus (8) Gout (9) Diabetes mellitus (10) Parkinson's disease dementia (11) Acute on chronic respiratory failure (12) Chronic vegetative state (13) Severe protein-calorie malnutrition Assessment & Plan: DAILY ESTIMATED NEEDS: Needs based on Advanced wound, critical care, underweight, FACILITIES CUSTODIAN TF/ 45.5kg 30-40 kcals/kg 1338-4165 total kcals 1.5-2 g protein/kg 68-91 g total protein 30-40 mL/kg 2947-6452 total fluid mLs NUTRITION DIAGNOSIS: Increased kcal/prot needs R/T underweight status, wound healing as evidenced by pt @83% IBW w/ underweight BMI of 17.2, admitted w/ multiple wounds, including stage 4 sacral wound. CURRENT TF:Glucerna 1.2 @ 60ml/hr x 24 hrs ENTERAL NUTRITION RECOMMENDATIONS: Glucerna 1.2 @ 60ml/hr x 24 hrs to provide 1440ml, 1728kcal, 86g prot, 1159ml free water * Maintain current TF rate as tolerated to meet 100% est kcal/prot needs -> 1.9g prot/kg. * HOB over 30 degrees/ water flush per MD * add Shen BID ADDITIONAL RECOMMENDATIONS: * Per SNF: HT=64" and VA=977# vs EMR wt of 147lbs -> Recalibrate bed scale for accurate CBW * Wound healing: TF rec @ goal will provide 100% RDI add Vit C 500mg BID, continue ZnSO4 220gm QD x 10 days Shen BID via PEG * Monitor BGs, consider NISS: h/o DM -> NISS now added * Increase water flushes for elevated Na (14) Hypercalcemia (15) Staphylococcus aureus bacteremia Assessment & Plan: unlikely related to wound checking often to ensure not worsening good local care being provided cont abx There is bilateral mostly upper lobe centrilobular emphysema. Mosaic attenuation pattern is seen throughout the bilateral upper lobes. There is consolidation and atelectasis of most of the left lower lobe. A few groundglass opacities are seen in the inferior left upper lobe. There is some compressive atelectasis at the right lung base with elevation of the right hemidiaphragm. There is a subpleural 8 mm nodular opacity in the right middle lobe. On recent abdomen pelvis CT scan, this demonstrated a cavity. The cavity is not evident currently There is a tracheostomy. The pleural spaces are clear. The heart size is normal. No pericardial effusion. No mediastinal or hilar mass or adenopathy. The ascending thoracic aorta is mildly ectatic, measuring up to 3.8 cm in diameter. The included portion of the thyroid is unremarkable. No axillary or chest wall mass or adenopathy demonstrated. There is smooth thoracic kyphosis without focal compression abnormality. The bones are unremarkable. Included upper abdominal anatomy demonstrates contrast in the colon from prior CT of the abdomen. There is a upper pole right renal cyst Impression: Centrilobular emphysema seen throughout both lungs with with an upper lobe predominance, indicating extensive COPD changes Mosaic attenuation pattern in the upper lobes probably related to COPD, although this is a nonspecific finding Dense consolidation and atelectasis of much of the left lower lobe. This could represent pneumonia. Groundglass opacities in the inferior left upper lobe. These could represent areas of acute inflammation, or could represent post inflammatory changes. 8mm nodule in the right middle lobe, also described on prior CT scan. This previously demonstrated a cavity. Cavitation currently not evident. Differential considerations include neoplasm, acute or chronic inflammatory lesion. Recommend at a minimum follow-up CT scan in 6 months Tracheostomy Kyphosis Right upper pole renal cyst Chris Hunter Mar 30, 2020 10:57
--- NOTE | 2020-03-30 11:49 | Nephrology Progress Note ---
Assessment/Plan Problem List: (1) Hypercalcemia (2) Hypernatremia (3) Sepsis (4) UTI (urinary tract infection) (5) Stage 4 decubitus ulcer (6) Acute on chronic respiratory failure (7) Chronic vegetative state (8) Severe protein-calorie malnutrition Assessment Azotemia and hypernatremia indicative of severe dehydration and free water deficit Acute on chronic respiratory failure, on mechanical ventilation Severe underlying anemia Sepsis Stage IV decubitus Idiopathic obstructive hydrocephalus, history of intracranial hemorrhage Diabetes mellitus Parkinson's disease, dementia Protein calorie malnutrition Plan March 30: Labs reviewed. Trach to vent. Remains full code. Labs reviewed. Renal parameters stable. March 29: Labs reviewed. Renal parameters stable. Continue per consultants. March 28: Labs reviewed. Stable from renal standpoint of view. March 27: Medication list reviewed. Labs reviewed. Stable from renal standpoint of view. March 26: Patient remains stable from renal standpoint of view. Labs and medication list reviewed. March 25: Labs reviewed. Renal parameters stable. Continue per consultants. March 24: Labs reviewed. Renal parameters stable. Continue per consultants. March 23: Labs reviewed. Renal parameters are stable. Continue per consultants. March 22: Labs reviewed. Serum sodium 151. D5W IV given. Continue per consultants. March 21: Labs reviewed. Renal parameters stable. Continue per consultants. March 20: Labs reviewed. Serum sodium lower 147. Serum calcium stable. Continue as is. March 19: Labs reviewed. Serum sodium unchanged at 150. Another liter of D5W ordered. Serum calcium stable. Continue as is. March 18: Labs reviewed. Serum sodium 150. 1 L of D5W IV ordered. Serum calcium stable. Continue as is. March 17: Labs reviewed. Renal parameters stable. Continue to watch serum calcium. Continue per consultants. March 16: Labs reviewed. Serum calcium stable. Medication list reviewed. Abnormal electrolyte addressed. Continue current management. March 15: Labs reviewed. Serum calcium lowering. Abnormal electrolytes addressed. Continue per consultants. March 14: Labs reviewed. Status quo. Serum calcium lowering. Magnesium and potassium supplement ordered. Continue per current treatment plan. March 13: 1 dose of pamidronate 60 mg for high calcium IV ordered. Labs reviewed. Medication list reviewed. Electrolytes improving. Hemoglobin higher after transfusion. Nasal calcitonin initiated March 12: D5W at 75 cc an hour Monitor electrolytes Monitor hemoglobin hematocrit Gastric support Consider transfusion Continue per orders Parameters for blood pressure medication Antibiotics per ID Subjective ROS Limited/Unobtainable: Yes Objective Objective Last 24 Hour Vital Signs Date Time Temp Pulse Resp B/P (MAP) Pulse Ox O2 Delivery O2 Flow Rate FiO2 03/30/20 08:00 108 03/30/20 08:00 35 03/30/20 08:00 99.0 100 20 128/65 (86) 100 03/30/20 08:00 Mechanical Ventilator 03/30/20 07:01 102 22 35 03/30/20 05:15 110 134/92 03/30/20 04:00 Mechanical Ventilator 03/30/20 04:00 35 03/30/20 03:52 97.2 102 20 107/67 (80) 100 03/30/20 03:33 106 03/30/20 03:00 105 33 35 03/30/20 00:00 35 03/30/20 00:00 Mechanical Ventilator 03/30/20 00:00 98.1 91 20 126/75 (92) 100 03/29/20 23:25 89 03/29/20 23:07 88 21 35 03/29/20 21:00 98 126/71 03/29/20 20:33 98.9 03/29/20 20:00 Mechanical Ventilator 03/29/20 20:00 35 03/29/20 20:00 99.8 101 22 127/68 (87) 100 03/29/20 19:04 114 03/29/20 18:58 101 28 35 03/29/20 16:00 99.1 106 22 105/58 (74) 100 03/29/20 16:00 113 03/29/20 15:51 35 03/29/20 15:50 Mechanical Ventilator 03/29/20 15:18 96 22 35 03/29/20 14:17 112 121/75 03/29/20 12:00 112 Intake and Output 03/29/20 03/30/20 19:00 07:00 Intake Total 1320 ml 1190 ml Output Total 850 ml 850 ml Balance 470 ml 340 ml Free Water 480 ml 50 ml IV Total 300 ml Tube Feeding 840 ml 840 ml Output Urine Total 850 ml 650 ml Stool Total 200 ml # Bowel Movements 2 3 Current Medications Medications (Trade) Dose Ordered Sig/Zaki Route PRN Reason Start Time Stop Time Status Last Admin Dose Admin Acetaminophen (Tylenol) 650 mg Q6H PRN GT Temp >100.5, Mild Pain 03/11/20 06:30 04/10/20 06:29 03/29/20 20:03 Ascorbic Acid (Vitamin C) 500 mg DAILY ORAL 03/28/20 09:00 04/27/20 08:59 03/30/20 08:14 Aspirin (ASA) 81 mg DAILY GT 03/11/20 09:00 04/25/20 08:59 03/29/20 08:13 Calcitonin [place] (Miacalcin) 1 sprays DAILY NASAL 03/13/20 11:00 06/11/20 10:59 03/30/20 08:18 Dextrose (Dextrose 50%) 25 ml Q30M PRN IV Hypoglycemia 03/13/20 23:30 06/11/20 23:29 Dextrose (Dextrose 50%) 50 ml Q30M PRN IV Hypoglycemia 03/13/20 23:30 06/11/20 23:29 Diltiazem HCl (Cardizem Tab) 30 mg EVERY 8 HOURS GT 03/24/20 14:00 04/23/20 13:59 03/30/20 05:15 Diphenhydramine HCl (Benadryl) 25 mg Q8H PRN ORAL Itching 03/14/20 15:00 04/13/20 14:59 03/14/20 15:50 Famotidine (Pepcid) 20 mg BID GT 03/18/20 18:00 06/09/20 08:59 03/30/20 08:13 Insulin Aspart (NovoLOG) Q6HR SUBQ 03/14/20 00:00 06/12/20 00:00 03/30/20 11:34 Linezolid 300 ml @ 300 mls/hr Q12HR IVPB 03/22/20 13:00 04/21/20 23:59 03/30/20 08:18 Multivitamins (Multivitamins) 1 tab DAILY ORAL 03/28/20 09:00 04/27/20 08:59 03/30/20 08:13 Ondansetron HCl (Zofran) 4 mg Q4H PRN IVP Nausea & Vomiting 03/11/20 06:30 04/10/20 06:29 Zinc Sulfate (Zinc Sulfate) 220 mg DAILY ORAL 03/28/20 09:00 04/07/20 09:00 03/30/20 08:14 Laboratory Tests 03/29/20 22:51: POC Whole Blood Glucose 173H 03/30/20 03:25: White Blood Count 18.3H, Red Blood Count 3.20L, Hemoglobin 8.6L, Hematocrit 25.6L, Mean Corpuscular Volume 80, Mean Corpuscular Hemoglobin 27.0, Mean Corpuscular Hemoglobin Concent 33.7, Red Cell Distribution Width 19.1H, Platelet Count 501H, Mean Platelet Volume 7.2, Neutrophils (%) (Auto) , Lymphocytes (%) (Auto) , Monocytes (%) (Auto) , Eosinophils (%) (Auto) , Basophils (%) (Auto) , Differential Total Cells Counted 100, Neutrophils % (Manual) 70, Lymphocytes % (Manual) 10L, Monocytes % (Manual) 9, Eosinophils % (Manual) 11H, Basophils % (Manual) 0, Band Neutrophils 0, Platelet Estimate IncreasedH, Platelet Morphology Normal, Hypochromasia 1+, Anisocytosis 2+, Sodium Level 140, Potassium Level 4.5, Chloride Level 104, Carbon Dioxide Level 27, Blood Urea Nitrogen 30H, Creatinine 0.9, Estimat Glomerular Filtration Rate > 60, Glucose Level 167H, Calcium Level 9.4 03/30/20 04:40: POC Whole Blood Glucose 171H 03/30/20 11:31: POC Whole Blood Glucose 177H Height (Feet): 5 Height (Inches): 5.00 Weight (Pounds): 147 General Appearance: no apparent distress EENT: other - Trach to vent Cardiovascular: tachycardia Respiratory/Chest: decreased breath sounds Abdomen: distended Mathew Huntley MD Mar 30, 2020 11:49
[2020-03-30 12:00] VITALS: BP 138/87
--- NOTE | 2020-03-30 13:40 | Pulmonolgy Critical Care Note ---
Critical Care - Asmt/Plan Problems: (1) Persistent fever (2) Acute on chronic respiratory failure (3) Staphylococcus aureus bacteremia (4) Sepsis (5) Chronic respiratory failure requiring continuous mechanical ventilation through tracheostomy (6) Stage 4 decubitus ulcer (7) Diabetes mellitus (8) Parkinson's disease dementia (9) Gout (10) Idiopathic obstructive hydrocephalus (11) Severe protein-calorie malnutrition (12) History of intracranial hemorrhage (13) Chronic vegetative state Respiratory: monitor respiratory rate, adjust FIO2 Cardiac: continue to monitor HR/BP Renal: F/U I&O, keep IV fluid, check electrolytes Infectious Disease: check cultures Gastrointestinal: continue feedings/current rate Endocrine: continue sliding scale insulin Neurologic: keep patient comfortable Affect: PRN ativan Prophylaxis: Protonix Time Spent (Minutes): 40 Notes Reviewed: tile picker, renal Discussed with: nurses, consultants, patient case managermanager pest - Objective Last 24 Hour Vital Signs Date Time Temp Pulse Resp B/P (MAP) Pulse Ox O2 Delivery O2 Flow Rate FiO2 03/30/20 13:04 106 143/78 03/30/20 12:00 104 03/30/20 12:00 Mechanical Ventilator 03/30/20 12:00 98.6 108 20 138/87 (104) 100 03/30/20 12:00 35 03/30/20 11:04 96 24 35 03/30/20 08:00 108 03/30/20 08:00 35 03/30/20 08:00 99.0 100 20 128/65 (86) 100 03/30/20 08:00 Mechanical Ventilator 03/30/20 07:01 102 22 35 03/30/20 05:15 110 134/92 03/30/20 04:00 Mechanical Ventilator 03/30/20 04:00 35 03/30/20 03:52 97.2 102 20 107/67 (80) 100 03/30/20 03:33 106 03/30/20 03:00 105 33 35 03/30/20 00:00 35 03/30/20 00:00 Mechanical Ventilator 03/30/20 00:00 98.1 91 20 126/75 (92) 100 03/29/20 23:25 89 03/29/20 23:07 88 21 35 03/29/20 21:00 98 126/71 03/29/20 20:33 98.9 03/29/20 20:00 Mechanical Ventilator 03/29/20 20:00 35 03/29/20 20:00 99.8 101 22 127/68 (87) 100 03/29/20 19:04 114 03/29/20 18:58 101 28 35 03/29/20 16:00 99.1 106 22 105/58 (74) 100 03/29/20 16:00 113 03/29/20 15:51 35 03/29/20 15:50 Mechanical Ventilator 03/29/20 15:18 96 22 35 03/29/20 14:17 112 121/75 Status: awake Condition: critical HEENT: atraumatic, normocephalic Lungs: rales, rhonchi Heart: HR/BP stable Abdomen: soft, active bowel sounds Extremities: no C/C/E Micro: Microbiology Date/Time Source Procedure Growth Status 03/29/20 12:12 Stool Clostridium difficile Toxin Assay - Final Complete Accucheck: 177 Critical Care - Subjective ROS Limited/Unobtainable: Yes Condition: critical FI02: 35 Vent Support Breath Rate: 16 Vent Support Mode: AC Vent Tidal Volume: 400 Sputum Amount: Small PEEP: 5.0 PIP: 17 Tube Feeding Amount: 70 I&O: Intake and Output 03/29/20 03/30/20 19:00 07:00 Intake Total 1320 ml 1190 ml Output Total 850 ml 850 ml Balance 470 ml 340 ml Free Water 480 ml 50 ml IV Total 300 ml Tube Feeding 840 ml 840 ml Output Urine Total 850 ml 650 ml Stool Total 200 ml # Bowel Movements 2 3 Labs: Laboratory Tests Test 03/29/20 22:51 03/30/20 03:25 03/30/20 04:40 03/30/20 11:31 POC Whole Blood Glucose 173 MG/DL (74-106) H 171 MG/DL (74-106) H 177 MG/DL (74-106) H White Blood Count 18.3 K/UL (4.8-10.8) H Red Blood Count 3.20 M/UL (4.20-5.40) L Hemoglobin 8.6 G/DL (12.0-16.0) L Hematocrit 25.6 % (37.0-47.0) L Mean Corpuscular Volume 80 FL (80-99) Mean Corpuscular Hemoglobin 27.0 PG (27.0-31.0) Mean Corpuscular Hemoglobin Concent 33.7 G/DL (32.0-36.0) Red Cell Distribution Width 19.1 % (11.6-14.8) H Platelet Count 501 K/UL (150-450) H Mean Platelet Volume 7.2 FL (6.5-10.1) Neutrophils (%) (Auto) % (45.0-75.0) Lymphocytes (%) (Auto) % (20.0-45.0) Monocytes (%) (Auto) % (1.0-10.0) Eosinophils (%) (Auto) % (0.0-3.0) Basophils (%) (Auto) % (0.0-2.0) Differential Total Cells Counted 100 Neutrophils % (Manual) 70 % (45-75) Lymphocytes % (Manual) 10 % (20-45) L Monocytes % (Manual) 9 % (1-10) Eosinophils % (Manual) 11 % (0-3) H Basophils % (Manual) 0 % (0-2) Band Neutrophils 0 % (0-8) Platelet Estimate Increased H Platelet Morphology Normal Hypochromasia 1+ Anisocytosis 2+ Sodium Level 140 MMOL/L (136-145) Potassium Level 4.5 MMOL/L (3.5-5.1) Chloride Level 104 MMOL/L (98-107) Carbon Dioxide Level 27 MMOL/L (21-32) Blood Urea Nitrogen 30 mg/dL (7-18) H Creatinine 0.9 MG/DL (0.55-1.30) Estimat Glomerular Filtration Rate > 60 mL/min (>60) Glucose Level 167 MG/DL (74-106) H Calcium Level 9.4 MG/DL (8.5-10.1) Patti Matta MD Mar 30, 2020 13:40
--- NOTE | 2020-03-30 13:58 | NUR ---
CASE MANAGEMENT:REVIEW 03/30/20 SI: MRSA SEPSIS TRACH/VENT/GT DEPENDENT 99.0 108 20 138/87 100% ON VENT SUPPORT 35% FIO2 WBC+18.3 H/H-8.6/25.6 IS: IV LINEZOLID Q12 CARDIZEM GT Q8HRS : STEP DOWN UNIT DCP: FROM [facility]
[2020-03-30] MEDS ORDERED: NS 275ml ONE (14:56)
[2020-03-30] MEDS ORDERED: Tubing IV Secondary IV ONE ×2 (15:04→15:06)
--- NOTE | 2020-03-30 15:31 | Cardiac Electrophysiology PN ---
Assessment/Plan Assessment/Plan 1. MRSA bacteremia. Most recent blood culture from March 13, 2020 showed no growth. Echocardiogram showed ejection fraction of 60-65% with no clear vegetation. DEBBIE cancelled as family refused. On iv Abx per ID. Indium scan no clear source 2. VDRF , status post tracheostomy.On 40% Fio2 3. Dysphagia, status post PEG placement. 4. History of intracranial hemorrhage. 5. COPD. 6. Diabetes. 7. Glaucoma. 8. Sacral decubitus stage IV. 9. Hypertension, on Cardizem 10. Transient SVT. On Cardizem [address] RN and Dr Villegas Is being considered for hospice care Subjective Subjective On the Vent in sinus tach Fio2 35% and PEEP 5.Still febrile with high WBC Family refused DEBBIE. Had episodes of SVT lasting less than 20 seconds 03/23/20. Indium scan > no clear source. WBC up to 18K. Hospice eval pending if family agrees. On Zyvox Objective Last 24 Hour Vital Signs Date Time Temp Pulse Resp B/P (MAP) Pulse Ox O2 Delivery O2 Flow Rate FiO2 03/30/20 13:04 106 143/78 03/30/20 12:00 104 03/30/20 12:00 Mechanical Ventilator 03/30/20 12:00 98.6 108 20 138/87 (104) 100 03/30/20 12:00 35 03/30/20 11:04 96 24 35 03/30/20 08:00 108 03/30/20 08:00 35 03/30/20 08:00 99.0 100 20 128/65 (86) 100 03/30/20 08:00 Mechanical Ventilator 03/30/20 07:01 102 22 35 03/30/20 05:15 110 134/92 03/30/20 04:00 Mechanical Ventilator 03/30/20 04:00 35 03/30/20 03:52 97.2 102 20 107/67 (80) 100 03/30/20 03:33 106 03/30/20 03:00 105 33 35 03/30/20 00:00 35 03/30/20 00:00 Mechanical Ventilator 03/30/20 00:00 98.1 91 20 126/75 (92) 100 03/29/20 23:25 89 03/29/20 23:07 88 21 35 03/29/20 21:00 98 126/71 03/29/20 20:33 98.9 03/29/20 20:00 Mechanical Ventilator 03/29/20 20:00 35 03/29/20 20:00 99.8 101 22 127/68 (87) 100 03/29/20 19:04 114 03/29/20 18:58 101 28 35 03/29/20 16:00 99.1 106 22 105/58 (74) 100 03/29/20 16:00 113 03/29/20 15:51 35 03/29/20 15:50 Mechanical Ventilator Intake and Output 03/29/20 03/30/20 19:00 07:00 Intake Total 1320 ml 1190 ml Output Total 850 ml 850 ml Balance 470 ml 340 ml Free Water 480 ml 50 ml IV Total 300 ml Tube Feeding 840 ml 840 ml Output Urine Total 850 ml 650 ml Stool Total 200 ml # Bowel Movements 2 3 Laboratory Tests Test 03/29/20 22:51 03/30/20 03:25 03/30/20 04:40 03/30/20 11:31 POC Whole Blood Glucose 173 MG/DL (74-106) H 171 MG/DL (74-106) H 177 MG/DL (74-106) H White Blood Count 18.3 K/UL (4.8-10.8) H Red Blood Count 3.20 M/UL (4.20-5.40) L Hemoglobin 8.6 G/DL (12.0-16.0) L Hematocrit 25.6 % (37.0-47.0) L Mean Corpuscular Volume 80 FL (80-99) Mean Corpuscular Hemoglobin 27.0 PG (27.0-31.0) Mean Corpuscular Hemoglobin Concent 33.7 G/DL (32.0-36.0) Red Cell Distribution Width 19.1 % (11.6-14.8) H Platelet Count 501 K/UL (150-450) H Mean Platelet Volume 7.2 FL (6.5-10.1) Neutrophils (%) (Auto) % (45.0-75.0) Lymphocytes (%) (Auto) % (20.0-45.0) Monocytes (%) (Auto) % (1.0-10.0) Eosinophils (%) (Auto) % (0.0-3.0) Basophils (%) (Auto) % (0.0-2.0) Differential Total Cells Counted 100 Neutrophils % (Manual) 70 % (45-75) Lymphocytes % (Manual) 10 % (20-45) L Monocytes % (Manual) 9 % (1-10) Eosinophils % (Manual) 11 % (0-3) H Basophils % (Manual) 0 % (0-2) Band Neutrophils 0 % (0-8) Platelet Estimate Increased H Platelet Morphology Normal Hypochromasia 1+ Anisocytosis 2+ Sodium Level 140 MMOL/L (136-145) Potassium Level 4.5 MMOL/L (3.5-5.1) Chloride Level 104 MMOL/L (98-107) Carbon Dioxide Level 27 MMOL/L (21-32) Blood Urea Nitrogen 30 mg/dL (7-18) H Creatinine 0.9 MG/DL (0.55-1.30) Estimat Glomerular Filtration Rate > 60 mL/min (>60) Glucose Level 167 MG/DL (74-106) H Calcium Level 9.4 MG/DL (8.5-10.1) Microbiology Date/Time Source Procedure Growth Status 03/29/20 12:12 Stool Clostridium difficile Toxin Assay - Final Complete Objective HEAD AND NECK: No JVD. LUNGS: Coarse rhonchi. Status post tracheostomy. CARDIOVASCULAR: Regular S1 and S2 with no gallop or rub. Status post PEG. EXTREMITIES: 1+ pitting edema with sacral decubitus. Shay Alejandre MD Mar 30, 2020 15:31
[2020-03-30 16:00] VITALS: BP 143/80
--- NOTE | 2020-03-30 19:40 | NUR ---
NURSE HAND-OFF REPORT: Important Events on Shift:none Patient Status: stable Diet: Glucerna 1.2 @ 70cc/hr Pending Orders: N Pending Results/Labs:N Pending notification:N Latest Vital Signs: Temperature 98.8 , Pulse 105 , B/P 143 /80 , Respiratory Rate 29 , O2 SAT 100 , Mechanical Ventilator, O2 Flow Rate . Vital Sign Comment: stable EKG Rhythm: Sinus Tachycardia Rhythm change?: N MD Notified?: N -Dr. Hill MARQUES Response: Latest Ochoa Fall Score: 70 Fall Risk: High Risk Safety Measures: Call light Within Reach, Bed Alarm Zone 2, Side Rails Side Rails x3, Bed position Low and Locked. Fall Precautions: Yellow Socks Yellow Gown Door Sign Patient Fall Education Report given to ADILENE Lechuga.
--- NOTE | 2020-03-30 19:41 | NUR ---
NURSE NOTES: Report received from ADILENE Farias. Pt observed to be obtunded, responsive to tactile stimuli. Saturating 99% on vent settings of AC 16 / Vt 400 / 35% fiO2 / P5. Mild temperature of 99.0 noted. Cooling measures initiated. g-tube running Glucerna 1.2 at 70 mL with 0 residual. Rectal tube and dominique intact draining well to gravity. Left hand and wrist IV's saline locked. Bed kept in lowest and locked position. Bed alarm on, side rails up x3. Will continue to monitor.
[2020-03-30 20:00] VITALS: BP 122/63
--- NOTE | 2020-03-30 23:30 | General Progress Note ---
Subjective Allergies: Coded Allergies: No Known Allergies (Unverified , 03/11/20) Subjective above noted tolerating TF non communicative Objective Last 24 Hour Vital Signs Date Time Temp Pulse Resp B/P (MAP) Pulse Ox O2 Delivery O2 Flow Rate FiO2 03/30/20 23:16 102 31 35 03/30/20 21:09 102 122/63 03/30/20 20:00 35 03/30/20 20:00 99.0 101 20 122/63 (82) 100 03/30/20 20:00 Mechanical Ventilator 03/30/20 19:32 105 29 35 03/30/20 19:25 102 03/30/20 16:00 35 03/30/20 16:00 Mechanical Ventilator 03/30/20 16:00 98.8 108 20 143/80 (101) 100 03/30/20 16:00 102 03/30/20 15:25 99 24 35 03/30/20 13:04 106 143/78 03/30/20 12:00 104 03/30/20 12:00 Mechanical Ventilator 03/30/20 12:00 98.6 108 20 138/87 (104) 100 03/30/20 12:00 35 03/30/20 11:04 96 24 35 03/30/20 08:00 108 03/30/20 08:00 35 03/30/20 08:00 99.0 100 20 128/65 (86) 100 03/30/20 08:00 Mechanical Ventilator 03/30/20 07:01 102 22 35 03/30/20 05:15 110 134/92 03/30/20 04:00 Mechanical Ventilator 03/30/20 04:00 35 03/30/20 03:52 97.2 102 20 107/67 (80) 100 03/30/20 03:33 106 03/30/20 03:00 105 33 35 03/30/20 00:00 35 03/30/20 00:00 Mechanical Ventilator 03/30/20 00:00 98.1 91 20 126/75 (92) 100 Intake and Output 03/29/20 03/30/20 19:00 07:00 Intake Total 1320 ml 1190 ml Output Total 850 ml 850 ml Balance 470 ml 340 ml Free Water 480 ml 50 ml IV Total 300 ml Tube Feeding 840 ml 840 ml Output Urine Total 850 ml 650 ml Stool Total 200 ml # Bowel Movements 2 3 Laboratory Tests 03/30/20 03:25: White Blood Count 18.3H, Red Blood Count 3.20L, Hemoglobin 8.6L, Hematocrit 25.6L, Mean Corpuscular Volume 80, Mean Corpuscular Hemoglobin 27.0, Mean Corpuscular Hemoglobin Concent 33.7, Red Cell Distribution Width 19.1H, Platelet Count 501H, Mean Platelet Volume 7.2, Neutrophils (%) (Auto) , Lymphocytes (%) (Auto) , Monocytes (%) (Auto) , Eosinophils (%) (Auto) , Basophils (%) (Auto) , Differential Total Cells Counted 100, Neutrophils % (Manual) 70, Lymphocytes % (Manual) 10L, Monocytes % (Manual) 9, Eosinophils % (Manual) 11H, Basophils % (Manual) 0, Band Neutrophils 0, Platelet Estimate IncreasedH, Platelet Morphology Normal, Hypochromasia 1+, Anisocytosis 2+, Sodium Level 140, Potassium Level 4.5, Chloride Level 104, Carbon Dioxide Level 27, Blood Urea Nitrogen 30H, Creatinine 0.9, Estimat Glomerular Filtration Rate > 60, Glucose Level 167H, Calcium Level 9.4 03/30/20 04:40: POC Whole Blood Glucose 171H 03/30/20 11:31: POC Whole Blood Glucose 177H 03/30/20 17:10: POC Whole Blood Glucose 161H Height (Feet): 5 Height (Inches): 5.00 Weight (Pounds): 147 Objective elderly woman NCAT supple, trach CTA RR abd soft, (+)GT no edema (+) multiple decubs Assessment/Plan Assessment/Plan: Assessment History of intracranial hemorrhage, s/p gastrostomy, OB (+) stools status post tracheostomy, chronic obstructive pulmonary disease, type 2 diabetes, Parkinson's, gout, glaucoma, history of stage IV sacral decubitus ulceration, gout Fever Low albumin Recommendations - continue TF - GT care - elevate HOB - Monitor H&H - no GI w/u per family decision - re check albumin and prealbumin periodically Deanne Rivera MD Mar 30, 2020 23:30
[2020-03-31] VITALS (7 sets, daily range): BP systolic 90–139; BP diastolic 55–81
--- NOTE | 2020-03-31 00:48 | NUR ---
NURSE NOTES: Temperature resolved to 98.4 axil. Vitals WNL. EKG shows SR. Will continue monitoring.
--- NOTE | 2020-03-31 02:18 | NUR ---
NURSE NOTES: Continuous twitching observed on the left side of patients face. Vitals WNL and no signs of cardiopulmonary distress noted. Will monitor.
[2020-03-31] MEDS: NovoLOG Insulin Flexpen SUBQ SCH ×4 (05:08→23:22)
[2020-03-31] MEDS: dilTIAZem HCl 30mg tab GT SCH ×3 (05:13→22:12)
--- NOTE | 2020-03-31 07:18 | NUR ---
NURSE HAND-OFF REPORT: Important Events on Shift: No changes Patient Status: Obtunded Diet: Glucerna 1.2 Pending Orders: Pending Results/Labs: Pending MD notification: Latest Vital Signs: Temperature 98.2 , Pulse 98 , B/P 139 /69 , Respiratory Rate 25 , O2 SAT 100 , Mechanical Ventilator, O2 Flow Rate . Vital Sign Comment: Fever resolved EKG Rhythm: Sinus Rhythm Rhythm change?: N MD Notified?: N -Dr. Hill MARQUES Response: Latest Ochoa Fall Score: 70 Fall Risk: High Risk Safety Measures: Call light Within Reach, Bed Alarm Zone 1, Side Rails Side Rails x3, Bed position Low and Locked. Fall Precautions: Yellow Socks Yellow Gown Door Sign Patient Fall Education Report given to ADILENE Sanchez.
--- NOTE | 2020-03-31 07:27 | NUR ---
NURSE NOTES: Received report from Vlad Poole, pt. in bed awake, with eyes open, appears to be non-verbal, no signs or symptoms of acute cardiac or respiratory distress noted, bed alarm on, side rails up x's 3 and safety brakes locked, call light within easy reach, pt. is ST on monitor at 111 repositioned and turned pt., pt. has G tube running Glucerna 1.2 at 70cc/hr - no residual noted,pt. appears to be tolerating current vent settings well- AC 16VT 400, fio2 at 35% and peep5- no distress noted, Collier catheter intact and draining to gravity, pt. appears clean and dry, left hand 24G and left wrist 20G IV both intact and patent- TKO, aspiration precautions observed- HOB elevated, skin precautions observed, will continue to monitor pt. and with plan of care.
[2020-03-31] MEDS: Zinc Sulfate 220mg ORAL SCH (08:30)
[2020-03-31] MEDS: Ascorbic Acid 500mg tab ORAL SCH (08:30)
--- NOTE | 2020-03-31 08:55 | Infectious Diseases Prog Note ---
Assessment/Plan 74yo F with: Febrile, persistent - most likely 2/2 worsening sacral decub, all other w/u neg Leukocytosis, persistent Thrombocytosis, increasing >> improving Sepsis Left lower lung infiltrate Acute on chronic resp failure SP trach MRSA bacteremia DEBBIE cancelled as family refused RML cavitation, not seen on CT chest 03/11 BCx +MRSA Resp cx +PsA (S-Zosyn, I-merissa and cefepime) UCx 30-40k ACB (colonizer) COVID rapid Ag neg CXR: Midline tracheostomy. Small left pleural effusion. Hyperinflation with flattening of the diaphragms and emphysema, consistent with COPD. No lobar infiltrate. 03/12 BCx NTD 03/13 C.dif neg 03/13 BCx NTD 03/14 BCx NTD 03/14 CT A/P: 1. Sacrococcygeal decubitus ulcers with associated osteomyelitis. 2. Small left pleural effusion. Left lower lobe atelectasis. 3. Bladder wall thickening. Foci of gas in the bladder. Correlate for recent instrumentation versus cystitis. Lung bases: Small nodular focus of cavitation in the right middle lobe. This may be secondary to infection. Recommend continued follow-up. Emphysematous changes in the lung bases. 1.2 cm nodular focus with some central cavitation in the right middle lobe. Pleural space: Small left pleural effusion. Left lower lobe atelectasis. 03/14 TTE: No vegetations, thickened valves 03/17 CXR: 1. Unchanged tracheostomy. 2. Mildly more pronounced linear interstitial prominence could represent atypical infection or interstitial pulmonary edema in the proper clinical context. 3. Unchanged hyperinflation. 4. Unchanged mild retrocardiac atelectasis without or with consolidation. 03/20 BCx NTD 03/20 CT chest: Centrilobular emphysema seen throughout both lungs with with an upper lobe predominance, indicating extensive COPD changes. Mosaic attenuation pattern in the upper lobes probably related to COPD, although this is a nonspecific finding. Dense consolidation and atelectasis of much of the left lower lobe. This could represent pneumonia. Groundglass opacities in the inferior left upper lobe. These could represent areas of acute inflammation, or could represent post inflammatory changes. 8mm nodule in the right middle lobe, also described on prior CT scan. This previously demonstrated a cavity. Cavitation currently not evident. Differential considerations include neoplasm, acute or chronic inflammatory lesion. Recommend at a minimum follow-up CT scan in 6 months 03/21 Resp cx +Serratia and PsA (S-Zosyn) 03/21 SPC changed 03/22 UA/UCx +yeast 03/27 Indium scan: Limited exam, as described. No definite abnormality to explain stated clinical history of leukocytosis R/o C.dif 03/29 C.dif neg Worsening sacral decub ulceration, likely cause of ongoing low-grade fevers BUE and BLE neg for DVT 03/21 MRSA nares positive VDRF S/p trach/PEG Bed bound Sacral decub ulceration w/ underlying OM Plan: Stop Zyvox #8, for MRSA bacteremia - given need to be on abx for prolonged period, linezolid is not best option so will put back on vanco Restart vanco IV, duration 6 weeks given inability to r/o endocarditis without DEBBIE, end date = 04/21/2003/31 SP linzolid #8 03/30 SP levofloxacin #7 for ACB in UCx 03/28 SP Zosyn #10 for pna 03/22 Sp IV vancomycin #11 03/14 SP cefepime #4 Appreciate Wound Care/Surgery input on worsening sacral decub - this is likely the cause of ongoing fevers Agree with hospice evaluation if family decides Trend WBC Trend temp curve Monitor CBC/CMP Monitor temp curve, hemodynamics Monitor resp status D/w RN Thank you for this consult. [facility] will continue to follow. Subjective Allergies: Coded Allergies: No Known Allergies (Unverified , 03/11/20) AF Labs p NAD on vent Objective Last 24 Hour Vital Signs Date Time Temp Pulse Resp B/P (MAP) Pulse Ox O2 Delivery O2 Flow Rate FiO2 03/31/20 05:13 98 139/69 03/31/20 04:00 Mechanical Ventilator 03/31/20 04:00 35 03/31/20 04:00 98.2 97 25 139/68 (91) 100 03/31/20 03:39 92 03/31/20 03:20 100 29 35 03/31/20 00:00 98.4 108 22 137/81 (99) 100 03/31/20 00:00 35 03/31/20 00:00 Mechanical Ventilator 03/30/20 23:46 109 03/30/20 23:16 102 31 35 03/30/20 21:09 102 122/63 03/30/20 20:00 35 03/30/20 20:00 99.0 101 20 122/63 (82) 100 03/30/20 20:00 Mechanical Ventilator 03/30/20 19:32 105 29 35 03/30/20 19:25 102 03/30/20 16:00 35 03/30/20 16:00 Mechanical Ventilator 03/30/20 16:00 98.8 108 20 143/80 (101) 100 03/30/20 16:00 102 03/30/20 15:25 99 24 35 03/30/20 13:04 106 143/78 03/30/20 12:00 104 03/30/20 12:00 Mechanical Ventilator 03/30/20 12:00 98.6 108 20 138/87 (104) 100 03/30/20 12:00 35 03/30/20 11:04 96 24 35 Height (Feet): 5 Height (Inches): 5.00 Weight (Pounds): 147 Gen: NAD in bed HEENT: NCAT, trach + secretions CV: RRR Pulm: CTAB Abd: Soft, NTND, +PEG +SPC Ext: No c/c/e Skin: Stage 4 sacral decub ulceration - larger than on admission but clean Neuro: Awake, not interactive Microbiology Date/Time Source Procedure Growth Status 03/29/20 12:12 Stool Clostridium difficile Toxin Assay - Final Complete Laboratory Tests Test 03/30/20 11:31 03/30/20 17:10 03/30/20 23:20 03/31/20 04:54 POC Whole Blood Glucose 177 MG/DL (74-106) H 161 MG/DL (74-106) H Pending 164 MG/DL (74-106) H Current Medications Medications (Trade) Dose Ordered Sig/Zaki Route PRN Reason Start Time Stop Time Status Last Admin Dose Admin Acetaminophen (Tylenol) 650 mg Q6H PRN GT Temp >100.5, Mild Pain 03/11/20 06:30 04/10/20 06:29 03/29/20 20:03 Ascorbic Acid (Vitamin C) 500 mg DAILY ORAL 03/28/20 09:00 04/27/20 08:59 03/31/20 08:30 Calcitonin [place] (Miacalcin) 1 sprays DAILY NASAL 03/13/20 11:00 06/11/20 10:59 03/31/20 08:29 Dextrose (Dextrose 50%) 25 ml Q30M PRN IV Hypoglycemia 03/13/20 23:30 06/11/20 23:29 Dextrose (Dextrose 50%) 50 ml Q30M PRN IV Hypoglycemia 03/13/20 23:30 06/11/20 23:29 Diltiazem HCl (Cardizem Tab) 30 mg EVERY 8 HOURS GT 03/24/20 14:00 04/23/20 13:59 03/31/20 05:13 Diphenhydramine HCl (Benadryl) 25 mg Q8H PRN ORAL Itching 03/14/20 15:00 04/13/20 14:59 03/14/20 15:50 Famotidine (Pepcid) 20 mg BID GT 03/18/20 18:00 06/09/20 08:59 03/31/20 08:30 Insulin Aspart (NovoLOG) Q6HR SUBQ 03/14/20 00:00 06/12/20 00:00 03/31/20 05:08 Linezolid 300 ml @ 300 mls/hr Q12HR IVPB 03/22/20 13:00 04/21/20 23:59 03/31/20 08:29 Multivitamins (Multivitamins) 1 tab DAILY ORAL 03/28/20 09:00 04/27/20 08:59 03/31/20 08:29 Ondansetron HCl (Zofran) 4 mg Q4H PRN IVP Nausea & Vomiting 03/11/20 06:30 04/10/20 06:29 Zinc Sulfate (Zinc Sulfate) 220 mg DAILY ORAL 03/28/20 09:00 04/07/20 09:00 03/31/20 08:30 Shirley Villegas M.D. Mar 31, 2020 08:55
[2020-03-31] MEDS ORDERED: Vancomycin 1gm in D5W 275ml IVPB ONE (10:00)
--- NOTE | 2020-03-31 10:53 | Pulmonolgy Critical Care Note ---
Critical Care - Asmt/Plan Problems: (1) Persistent fever (2) Acute on chronic respiratory failure (3) Staphylococcus aureus bacteremia (4) Sepsis (5) Chronic respiratory failure requiring continuous mechanical ventilation through tracheostomy (6) Stage 4 decubitus ulcer (7) Diabetes mellitus (8) Parkinson's disease dementia (9) Gout (10) Idiopathic obstructive hydrocephalus (11) Severe protein-calorie malnutrition (12) History of intracranial hemorrhage (13) Chronic vegetative state Respiratory: monitor respiratory rate, adjust FIO2, CXR Cardiac: continue pressors, continue to monitor HR/BP Renal: F/U I&O, check electrolytes Infectious Disease: check cultures, continue antibiotics Gastrointestinal: continue feedings/current rate Hematologic: monitor H/H, transfuse if hgb<8.5 Neurologic: PRN Morphine, keep patient comfortable Affect: PRN ativan Prophylaxis: Protonix Time Spent (Minutes): 40 Notes Reviewed: psychiatric np, cardio, renal Discussed with: nurses, consultants, piano case and 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 - Objective Last 24 Hour Vital Signs Date Time Temp Pulse Resp B/P (MAP) Pulse Ox O2 Delivery O2 Flow Rate FiO2 03/31/20 08:00 Mechanical Ventilator 03/31/20 08:00 35 03/31/20 08:00 98.2 95 22 119/72 (88) 100 03/31/20 07:42 94 03/31/20 05:13 98 139/69 03/31/20 04:00 Mechanical Ventilator 03/31/20 04:00 35 03/31/20 04:00 98.2 97 25 139/68 (91) 100 03/31/20 03:39 92 03/31/20 03:20 100 29 35 03/31/20 00:00 98.4 108 22 137/81 (99) 100 03/31/20 00:00 35 03/31/20 00:00 Mechanical Ventilator 03/30/20 23:46 109 03/30/20 23:16 102 31 35 03/30/20 21:09 102 122/63 03/30/20 20:00 35 03/30/20 20:00 99.0 101 20 122/63 (82) 100 03/30/20 20:00 Mechanical Ventilator 03/30/20 19:32 105 29 35 03/30/20 19:25 102 03/30/20 16:00 35 12/3/20 16:00 Mechanical Ventilator 03/30/20 16:00 98.8 108 20 143/80 (101) 100 03/30/20 16:00 102 03/30/20 15:25 99 24 35 03/30/20 13:04 106 143/78 03/30/20 12:00 104 03/30/20 12:00 Mechanical Ventilator 03/30/20 12:00 98.6 108 20 138/87 (104) 100 03/30/20 12:00 35 03/30/20 11:04 96 24 35 Status: awake Condition: improving HEENT: atraumatic Neck: full ROM Lungs: clear Heart: HR/BP stable Abdomen: active bowel sounds Extremities: no C/C/E Micro: Microbiology Date/Time Source Procedure Growth Status 03/29/20 12:12 Stool Clostridium difficile Toxin Assay - Final Complete Accucheck: 161 Critical Care - Subjective ROS Limited/Unobtainable: Yes Interval Events: low grade fever, wbc still high Condition: critical FI02: 35 Vent Support Breath Rate: 16 Vent Support Mode: AC Vent Tidal Volume: 400 Sputum Amount: Small PEEP: 5.0 PIP: 20 Tube Feeding Amount: 70 I&O: Intake and Output 03/30/20 03/31/20 19:00 07:00 Intake Total 1280 ml 1180 ml Output Total 400 ml 100 ml Balance 880 ml 1080 ml Free Water 140 ml 40 ml IV Total 300 ml 300 ml Tube Feeding 840 ml 840 ml Output Urine Total 300 ml 100 ml Stool Total 100 ml # Bowel Movements 2 3 Labs: Laboratory Tests Test 03/30/20 11:31 03/30/20 17:10 03/30/20 23:20 03/31/20 04:54 POC Whole Blood Glucose 177 MG/DL (74-106) H 161 MG/DL (74-106) H Pending 164 MG/DL (74-106) H Patti Matta MD Mar 31, 2020 10:53
--- NOTE | 2020-03-31 13:08 | NUR ---
CASE MANAGEMENT:REVIEW 03/31/20 SI: MRSA SEPSIS TRACH/VENT/GT DEPENDENT 98.2 95 22 119/72 100% ON VENT SUPPORT 35% FIO2 NO LABS TODAY IS: IV VANCOMYCIN Q12 ZINC GT QD MVI GT QD CARDIZEM GT Q8HRS IV LINEZOLID Q12 PEPCID GT BID : STEP DOWN UNIT DCP: FROM [place]
--- NOTE | 2020-03-31 13:35 | Nephrology Progress Note ---
Assessment/Plan Problem List: (1) Hypercalcemia (2) Hypernatremia (3) Sepsis (4) UTI (urinary tract infection) (5) Stage 4 decubitus ulcer (6) Acute on chronic respiratory failure (7) Chronic vegetative state (8) Severe protein-calorie malnutrition Assessment Azotemia and hypernatremia indicative of severe dehydration and free water deficit Acute on chronic respiratory failure, on mechanical ventilation Severe underlying anemia Sepsis Stage IV decubitus Idiopathic obstructive hydrocephalus, history of intracranial hemorrhage Diabetes mellitus Parkinson's disease, dementia Protein calorie malnutrition Plan March 31: No labs done today. Remains full code. Trach and vent. Continue per consultants. March 30: Labs reviewed. Trach to vent. Remains full code. Labs reviewed. Renal parameters stable. March 29: Labs reviewed. Renal parameters stable. Continue per consultants. March 28: Labs reviewed. Stable from renal standpoint of view. March 27: Medication list reviewed. Labs reviewed. Stable from renal standpoint of view. March 26: Patient remains stable from renal standpoint of view. Labs and medication list reviewed. March 25: Labs reviewed. Renal parameters stable. Continue per consultants. March 24: Labs reviewed. Renal parameters stable. Continue per consultants. March 23: Labs reviewed. Renal parameters are stable. Continue per consultants. March 22: Labs reviewed. Serum sodium 151. D5W IV given. Continue per consultants. March 21: Labs reviewed. Renal parameters stable. Continue per consultants. March 20: Labs reviewed. Serum sodium lower 147. Serum calcium stable. Continue as is. March 19: Labs reviewed. Serum sodium unchanged at 150. Another liter of D5W ordered. Serum calcium stable. Continue as is. March 18: Labs reviewed. Serum sodium 150. 1 L of D5W IV ordered. Serum calcium stable. Continue as is. March 17: Labs reviewed. Renal parameters stable. Continue to watch serum calcium. Continue per consultants. March 16: Labs reviewed. Serum calcium stable. Medication list reviewed. Abnormal electrolyte addressed. Continue current management. March 15: Labs reviewed. Serum calcium lowering. Abnormal electrolytes addressed. Continue per consultants. March 14: Labs reviewed. Status quo. Serum calcium lowering. Magnesium and potassium supplement ordered. Continue per current treatment plan. March 13: 1 dose of pamidronate 60 mg for high calcium IV ordered. Labs reviewed. Medication list reviewed. Electrolytes improving. Hemoglobin higher after transfusion. Nasal calcitonin initiated March 12: D5W at 75 cc an hour Monitor electrolytes Monitor hemoglobin hematocrit Gastric support Consider transfusion Continue per orders Parameters for blood pressure medication Antibiotics per ID Subjective ROS Limited/Unobtainable: Yes Objective Objective Last 24 Hour Vital Signs Date Time Temp Pulse Resp B/P (MAP) Pulse Ox O2 Delivery O2 Flow Rate FiO2 03/31/20 12:00 98.1 99 24 129/72 (91) 100 03/31/20 11:00 98 28 35 03/31/20 08:00 Mechanical Ventilator 03/31/20 08:00 35 03/31/20 08:00 98.2 95 22 119/72 (88) 100 03/31/20 07:42 94 03/31/20 07:25 94 26 35 03/31/20 05:13 98 139/69 03/31/20 04:00 Mechanical Ventilator 03/31/20 04:00 35 03/31/20 04:00 98.2 97 25 139/68 (91) 100 03/31/20 03:39 92 03/31/20 03:20 100 29 35 03/31/20 00:00 98.4 108 22 137/81 (99) 100 03/31/20 00:00 35 03/31/20 00:00 Mechanical Ventilator 03/30/20 23:46 109 03/30/20 23:16 102 31 35 03/30/20 21:09 102 122/63 03/30/20 20:00 35 03/30/20 20:00 99.0 101 20 122/63 (82) 100 03/30/20 20:00 Mechanical Ventilator 03/30/20 19:32 105 29 35 03/30/20 19:25 102 03/30/20 16:00 35 03/30/20 16:00 Mechanical Ventilator 03/30/20 16:00 98.8 108 20 143/80 (101) 100 03/30/20 16:00 102 03/30/20 15:25 99 24 35 Intake and Output 03/30/20 03/31/20 19:00 07:00 Intake Total 1280 ml 1180 ml Output Total 400 ml 100 ml Balance 880 ml 1080 ml Free Water 140 ml 40 ml IV Total 300 ml 300 ml Tube Feeding 840 ml 840 ml Output Urine Total 300 ml 100 ml Stool Total 100 ml # Bowel Movements 2 3 Current Medications Medications (Trade) Dose Ordered Sig/Zaki Route PRN Reason Start Time Stop Time Status Last Admin Dose Admin Acetaminophen (Tylenol) 650 mg Q6H PRN GT Temp >100.5, Mild Pain 03/11/20 06:30 04/10/20 06:29 03/29/20 20:03 Ascorbic Acid (Vitamin C) 500 mg DAILY ORAL 03/28/20 09:00 04/27/20 08:59 03/31/20 08:30 Calcitonin Red[place] (Miacalcin) 1 sprays DAILY NASAL 03/13/20 11:00 06/11/20 10:59 03/31/20 08:29 Dextrose (Dextrose 50%) 25 ml Q30M PRN IV Hypoglycemia 03/13/20 23:30 06/11/20 23:29 Dextrose (Dextrose 50%) 50 ml Q30M PRN IV Hypoglycemia 03/13/20 23:30 06/11/20 23:29 Diltiazem HCl (Cardizem Tab) 30 mg EVERY 8 HOURS GT 03/24/20 14:00 04/23/20 13:59 03/31/20 05:13 Diphenhydramine HCl (Benadryl) 25 mg Q8H PRN ORAL Itching 03/14/20 15:00 04/13/20 14:59 03/14/20 15:50 Famotidine (Pepcid) 20 mg BID GT 03/18/20 18:00 06/09/20 08:59 03/31/20 08:30 Insulin Aspart (NovoLOG) Q6HR SUBQ 03/14/20 00:00 06/12/20 00:00 03/31/20 11:20 Multivitamins (Multivitamins) 1 tab DAILY ORAL 03/28/20 09:00 04/27/20 08:59 03/31/20 08:29 Ondansetron HCl (Zofran) 4 mg Q4H PRN IVP Nausea & Vomiting 03/11/20 06:30 04/10/20 06:29 Vancomycin HCl (Vanco pharmacy to dose) 1 ea DAILY PRN MISC Per rx protocol 03/31/20 09:00 04/30/20 08:59 Vancomycin HCl 500 mg/Sodium Chloride 110 ml @ 110 mls/hr Q12H IVPB 03/31/20 23:00 04/05/20 22:59 Zinc Sulfate (Zinc Sulfate) 220 mg DAILY ORAL 03/28/20 09:00 04/07/20 09:00 03/31/20 08:30 Laboratory Tests 03/30/20 17:10: POC Whole Blood Glucose 161H 03/30/20 23:20: POC Whole Blood Glucose [Pending] 03/31/20 04:54: POC Whole Blood Glucose 164H 03/31/20 11:17: POC Whole Blood Glucose [Pending] Height (Feet): 5 Height (Inches): 5.00 Weight (Pounds): 147 General Appearance: no apparent distress, lethargic EENT: other - Trach to vent Cardiovascular: tachycardia Respiratory/Chest: decreased breath sounds Abdomen: distended Mathew Huntley MD Mar 31, 2020 13:35
--- NOTE | 2020-03-31 13:59 | Cardiac Electrophysiology PN ---
Assessment/Plan Assessment/Plan 1. MRSA bacteremia. Most recent blood culture from March 13, 2020 showed no growth. Echocardiogram showed ejection fraction of 60-65% with no clear vegetation. DEBBIE cancelled as family refused. On iv Abx per ID. Indium scan no clear source 2. VDRF , status post tracheostomy.On 40% Fio2 3. Dysphagia, status post PEG placement. 4. History of intracranial hemorrhage. 5. COPD. 6. Diabetes. 7. Glaucoma. 8. Sacral decubitus stage IV. 9. Hypertension, on Cardizem 10. Transient SVT. On Cardizem [address] RN and Dr Villegas Is being considered for hospice care Subjective Subjective On the Vent in sinus tach Fio2 35% and PEEP 5.Still high WBC Family refused DEBBIE. Had episodes of SVT lasting less than 20 seconds 03/23/20. Indium scan > no clear source. WBC up to 18K. Hospice eval pending if family agrees. On iv Zyvox per ID Objective Last 24 Hour Vital Signs Date Time Temp Pulse Resp B/P (MAP) Pulse Ox O2 Delivery O2 Flow Rate FiO2 03/31/20 13:58 95 122/66 03/31/20 12:00 98.1 99 24 129/72 (91) 100 03/31/20 12:00 35 03/31/20 12:00 Mechanical Ventilator 03/31/20 11:42 92 03/31/20 11:00 98 28 35 03/31/20 08:00 Mechanical Ventilator 03/31/20 08:00 35 03/31/20 08:00 98.2 95 22 119/72 (88) 100 03/31/20 07:42 94 03/31/20 07:25 94 26 35 03/31/20 05:13 98 139/69 03/31/20 04:00 Mechanical Ventilator 03/31/20 04:00 35 03/31/20 04:00 98.2 97 25 139/68 (91) 100 03/31/20 03:39 92 03/31/20 03:20 100 29 35 03/31/20 00:00 98.4 108 22 137/81 (99) 100 03/31/20 00:00 35 03/31/20 00:00 Mechanical Ventilator 03/30/20 23:46 109 03/30/20 23:16 102 31 35 12/3/20 21:09 102 122/63 12/3/20 20:00 35 03/30/20 20:00 99.0 101 20 122/63 (82) 100 03/30/20 20:00 Mechanical Ventilator 03/30/20 19:32 105 29 35 03/30/20 19:25 102 03/30/20 16:00 35 03/30/20 16:00 Mechanical Ventilator 03/30/20 16:00 98.8 108 20 143/80 (101) 100 03/30/20 16:00 102 03/30/20 15:25 99 24 35 Intake and Output 03/30/20 03/31/20 18:59 06:59 Intake Total 1240 ml 1220 ml Output Total 400 ml 100 ml Balance 840 ml 1120 ml Free Water 100 ml 80 ml IV Total 300 ml 300 ml Tube Feeding 840 ml 840 ml Output Urine Total 300 ml 100 ml Stool Total 100 ml # Bowel Movements 2 3 Laboratory Tests Test 03/30/20 17:10 03/30/20 23:20 03/31/20 04:54 03/31/20 11:17 POC Whole Blood Glucose 161 MG/DL (74-106) H Pending 164 MG/DL (74-106) H Pending Microbiology Date/Time Source Procedure Growth Status 03/29/20 12:12 Stool Clostridium difficile Toxin Assay - Final Complete Objective HEAD AND NECK: No JVD. LUNGS: Coarse rhonchi. Status post tracheostomy. CARDIOVASCULAR: Regular S1 and S2 with no gallop or rub. Status post PEG. EXTREMITIES: 1+ pitting edema with sacral decubitus. Shay Alejandre MD Mar 31, 2020 13:59
--- NOTE | 2020-03-31 16:06 | Surgery Progress Note ---
Surgery Progress Note Subjective Symptoms: other Objective Last 24 Hour Vital Signs Date Time Temp Pulse Resp B/P (MAP) Pulse Ox O2 Delivery O2 Flow Rate FiO2 03/31/20 13:58 95 122/66 03/31/20 12:00 98.1 99 24 129/72 (91) 100 03/31/20 12:00 35 03/31/20 12:00 Mechanical Ventilator 03/31/20 11:42 92 03/31/20 11:00 98 28 35 03/31/20 08:00 Mechanical Ventilator 03/31/20 08:00 35 03/31/20 08:00 98.2 95 22 119/72 (88) 100 03/31/20 07:42 94 03/31/20 07:25 94 26 35 03/31/20 05:13 98 139/69 03/31/20 04:00 Mechanical Ventilator 03/31/20 04:00 35 03/31/20 04:00 98.2 97 25 139/68 (91) 100 03/31/20 03:39 92 03/31/20 03:20 100 29 35 03/31/20 00:00 98.4 108 22 137/81 (99) 100 03/31/20 00:00 35 03/31/20 00:00 Mechanical Ventilator 03/30/20 23:46 109 03/30/20 23:16 102 31 35 03/30/20 21:09 102 122/63 03/30/20 20:00 35 03/30/20 20:00 99.0 101 20 122/63 (82) 100 03/30/20 20:00 Mechanical Ventilator 03/30/20 19:32 105 29 35 03/30/20 19:25 102 I&O Intake and Output 03/30/20 03/31/20 19:00 07:00 Intake Total 1280 ml 1180 ml Output Total 400 ml 100 ml Balance 880 ml 1080 ml Free Water 140 ml 40 ml IV Total 300 ml 300 ml Tube Feeding 840 ml 840 ml Output Urine Total 300 ml 100 ml Stool Total 100 ml # Bowel Movements 2 3 Dressing: saturated Cardiovascular: RSR Respiratory: decreased breath sounds Abdomen: non-tender, present bowel sounds Extremities: no tenderness, no cyanosis Laboratory Tests Test 03/30/20 17:10 03/30/20 23:20 03/31/20 04:54 03/31/20 11:17 POC Whole Blood Glucose 161 MG/DL (74-106) H Pending 164 MG/DL (74-106) H Pending Plan Problems: (1) Hypernatremia (2) Sepsis (3) UTI (urinary tract infection) (4) Stage 4 decubitus ulcer Assessment & Plan: Pt presented with trach,contractures, multiple Pressure injuries in various stages.Skin assessed under collar of trach and no skin breakdown evident. Full thickness Sacral Pressure injury with undermining clockwise 6-9o'clock.Wound is irregular shaped.Base of wound is 95% granular,5% slough at undermined borders.Small area of bone exposure noted at base of wound. Small amt serosanguineous exudate noted. No odor noted. An area of slough noted along borders. Edges are otherwise adherent and flat to base of wound with surrounding dry, darker skin tone.(L)11.2cm x (W)-8.7cm x(D)1.6cm ,undermining clockwise 6-9o'clock by 1.8cm @8o'clock. Partial thickness Pressure injury noted to R ischium. Base of wound is moist ,viable with surrounding shearing and non-blanchable erythema.(L)6.5cm x (W)4.5cm. Partial thickness Pressure injury L Ischium(L)1.2cm x (W)1.5cm. Base of wound is moist and viable with surrounding non-blanchable erythema with additional shearing. Resolving Pressure Injury medial L Knee. Base of wound is pink and dry . Resolving Pressure injury medial R knee. Dry pink epithelial with scattered moist, granular areas within base of wound.No odor or exudate noted.(L)4.3cm x (W)2.6cm. DTPI L lateral Malleolus(L)2.5cm x (W)3.5cm.Base of Pressure injury is indurated and maroon in colour. Non-Blanchable erythema periwound. DTPI L achilles extending into Plantar aspect of L heel(L)9.7cm x (W)10.4cm. Base of Pressure injury is black at achilles area with scattered purpuric areas, and is otherwise maroon and indurated. Resolving Pressure injury medial R Malleolus. Junior epithelial at base of wound. Stable dry eschar noted to R Hallux (L)1.2cm x (W01.3cm. Periwound skin tone is darker without erythema or induration. Tx.Plan: Cleanse Sacral wound with Saline. Loosely pack with Therahoney impregnated Kerlix(Attention to undermined area). Apply Moisture Barrier Periwound. Cover with Optifoam drsg. Change Daily and prn. Apply Moisture Barrier Paste to R and L Ischial wounds. Cover each site with Optifoam drsg. Change every 3 days and prn. Apply Cavilon Skin Barrier to medial aspects of R and L Knee. Cover each wound with Optifoam drsg.Change every 7 days and prn. Apply Cavilon Skin Barrier to R Hallux, R Heel, R and L Malleoli, and Both heels. Cover each affected area with Optifoam drsgs. Change drsgs every 7 days and prn. Reposition at least every [address] tolerated[address] Pillow between Knees. Off-load heels with Pillow. CT noted. osteo in sacrum cont abx osteo chronic will monitor and asses if debridement needed ABDOMEN: Liver: Unremarkable. No mass. Gallbladder and bile ducts: Unremarkable. No calcified stones. No ductal dilation. Pancreas: Unremarkable. No mass. No ductal dilation. Spleen: Spleen is small. Adrenals: Unremarkable. No mass. Kidneys and ureters: Renal cysts and subcentimeter low-attenuation foci, too small to characterize. No hydronephrosis. Stomach and bowel: Unremarkable. No obstruction. No mucosal thickening. PELVIS: Appendix: No findings to suggest acute appendicitis. Bladder: Bladder wall thickening. Foci of gas in the bladder. Correlate for recent instrumentation versus cystitis. Reproductive: Unremarkable as visualized. ABDOMEN and PELVIS: Intraperitoneal space: Unremarkable. No free air. No significant fluid collection. Bones/joints: Sacrococcygeal decubitus ulcers with associated osteomyelitis. There is some underlying bone thinning and sclerosis in the distal sacrum and coccyx underlying the decubitus ulcers. No acute fracture. No dislocation. Soft tissues: Unremarkable. Vasculature: Moderate plaque abdominal aorta and branches. No abdominal aortic aneurysm. Lymph nodes: Unremarkable. No enlarged lymph nodes. Tubes, lines and devices: Gastrostomy tube within the gastric body. IMPRESSION: 1. Sacrococcygeal decubitus ulcers with associated osteomyelitis. 2. Small left pleural effusion. Left lower lobe atelectasis. 3. Bladder wall thickening. Foci of gas in the bladder. Correlate for recent instrumentation versus cystitis. DAILY ESTIMATED NEEDS: Needs based on Advanced wound, critical care, underweight, DELI SLICER TF/ 45.5kg 30-40 kcals/kg 0523-8886 total kcals 1.5-2 g protein/kg 68-91 g total protein 30-40 mL/kg 0437-7273 total fluid mLs NUTRITION DIAGNOSIS: Increased kcal/prot needs R/T underweight status, wound healing as evidenced by pt @83% IBW w/ underweight BMI of 17.2, admitted w/ multiple wounds, including stage 4 sacral wound. CURRENT TF:Glucerna 1.2 @ 45ml/hr x 24 hrs ENTERAL NUTRITION RECOMMENDATIONS: Glucerna 1.2 @ 60ml/hr x 24 hrs to provide 1440ml, 1728kcal, 86g prot, 1159ml free water * Increase goal rate to 60ml/hr x 24 hrs to meet 100% est kcal/prot needs -> 1.9g prot/kg * HOB over 30 degrees/ water flush per MD * add Shen BID ADDITIONAL RECOMMENDATIONS: * Per SNF: HT=64" and CO=243# vs EMR wt of 147lbs -> rec daily calibrated bedscale wt * Wound healing: TF rec @ goal will provide 100% RDI Vit C 500mg BID, ZnSO4 220gm QD x 10 days Shen BID via PEG * Monitor BGs, consider NISS: h/o DM * Monitor lytes, replete as needed (5) Chronic respiratory failure requiring continuous mechanical ventilation through tracheostomy (6) History of intracranial hemorrhage (7) Idiopathic obstructive hydrocephalus (8) Gout (9) Diabetes mellitus (10) Parkinson's disease dementia (11) Acute on chronic respiratory failure (12) Chronic vegetative state (13) Severe protein-calorie malnutrition Assessment & Plan: DAILY ESTIMATED NEEDS: Needs based on Advanced wound, critical care, underweight, DELI SLICER TF/ 45.5kg 30-40 kcals/kg 1943-6257 total kcals 1.5-2 g protein/kg 68-91 g total protein 30-40 mL/kg 5805-9321 total fluid mLs NUTRITION DIAGNOSIS: Increased kcal/prot needs R/T underweight status, wound healing as evidenced by pt @83% IBW w/ underweight BMI of 17.2, admitted w/ multiple wounds, including stage 4 sacral wound. CURRENT TF:Glucerna 1.2 @ 60ml/hr x 24 hrs ENTERAL NUTRITION RECOMMENDATIONS: Glucerna 1.2 @ 60ml/hr x 24 hrs to provide 1440ml, 1728kcal, 86g prot, 1159ml free water * Maintain current TF rate as tolerated to meet 100% est kcal/prot needs -> 1.9g prot/kg. * HOB over 30 degrees/ water flush per MD * add Shen BID ADDITIONAL RECOMMENDATIONS: * Per SNF: HT=64" and VP=081# vs EMR wt of 147lbs -> Recalibrate bed scale for accurate CBW * Wound healing: TF rec @ goal will provide 100% RDI add Vit C 500mg BID, continue ZnSO4 220gm QD x 10 days Shen BID via PEG * Monitor BGs, consider NISS: h/o DM -> NISS now added * Increase water flushes for elevated Na (14) Hypercalcemia (15) Staphylococcus aureus bacteremia Assessment & Plan: unlikely related to wound checking often to ensure not worsening good local care being provided cont abx There is bilateral mostly upper lobe centrilobular emphysema. Mosaic attenuation pattern is seen throughout the bilateral upper lobes. There is consolidation and atelectasis of most of the left lower lobe. A few groundglass opacities are seen in the inferior left upper lobe. There is some compressive atelectasis at the right lung base with elevation of the right hemidiaphragm. There is a subpleural 8 mm nodular opacity in the right middle lobe. On recent abdomen pelvis CT scan, this demonstrated a cavity. The cavity is not evident currently There is a tracheostomy. The pleural spaces are clear. The heart size is normal. No pericardial effusion. No mediastinal or hilar mass or adenopathy. The ascending thoracic aorta is mildly ectatic, measuring up to 3.8 cm in diameter. The included portion of the thyroid is unremarkable. No axillary or chest wall mass or adenopathy demonstrated. There is smooth thoracic kyphosis without focal compression abnormality. The bones are unremarkable. Included upper abdominal anatomy demonstrates contrast in the colon from prior CT of the abdomen. There is a upper pole right renal cyst Impression: Centrilobular emphysema seen throughout both lungs with with an upper lobe predominance, indicating extensive COPD changes Mosaic attenuation pattern in the upper lobes probably related to COPD, although this is a nonspecific finding Dense consolidation and atelectasis of much of the left lower lobe. This could represent pneumonia. Groundglass opacities in the inferior left upper lobe. These could represent areas of acute inflammation, or could represent post inflammatory changes. 8mm nodule in the right middle lobe, also described on prior CT scan. This previously demonstrated a cavity. Cavitation currently not evident. Differential considerations include neoplasm, acute or chronic inflammatory lesion. Recommend at a minimum follow-up CT scan in 6 months Tracheostomy Kyphosis Right upper pole renal cyst Chris Hunter Mar 31, 2020 16:06
--- NOTE | 2020-03-31 18:53 | NUR ---
NURSE HAND-OFF REPORT: Important Events on Shift:none Patient Status: stable Diet: Glucerna 1.2 Pending Orders: Pending Results/Labs: Pending MD notification: Latest Vital Signs: Temperature 98.1 , Pulse 99 , B/P 127 /62 , Respiratory Rate 20 , O2 SAT 100 , Mechanical Ventilator, O2 Flow Rate . Vital Sign Comment: EKG Rhythm: Sinus Rhythm Rhythm change?: MD Notified?: MD Response: Latest Ochoa Fall Score: 70 Fall Risk: High Risk Safety Measures: Call light Within Reach, Bed Alarm Zone 1, Side Rails Side Rails x3, Bed position Low and Locked. Fall Precautions: Yellow Socks Yellow Gown Door Sign Patient Fall Education Report given to Vlad Heller, pt. remains stable.
--- NOTE | 2020-03-31 19:16 | NUR ---
NURSE NOTES: RECEIVED PATIENT FROM [facility],WITH TRACH TO VENT AT ORDERED SETTINGS TV400 AC16 FIO2 PEEP5 WELL TOLERATED SPO2 99%,TRACHEAL AND ORAL SUCTIONING DONE LARGE THICK SECRETIONS.GT FEEDING GLUCERNA 1.2 AT 70 CC/HR,NO RESIDUALS NOTED,KEPT HOB AT 35 DEGREES,REPOSITIONED FOR COMFORT.FEBRILE 100.8 SINUS TACHY AT 115/MIN.BP WNL.COOLING MEASURES RENDERED AND WILL GIVE TYLENOL PER GT.BALTAZAR TO GRAVITY WITH CLEAR YELLOW URINE.SCD'S ON TO BLE. DRESSING TO SACRAL AREA SLIGHTLY SOILED ,WILL CHANGE.
[2020-03-31] MEDS: Acetaminophen 650mg/20.3ml GT PRN (20:50)
[2020-03-31] MEDS: Vancomycin 500 MG in NS 110 ML IVPB SCH (22:13)
--- NOTE | 2020-03-31 23:40 | General Progress Note ---
Subjective Allergies: Coded Allergies: No Known Allergies (Unverified , 03/11/20) Subjective above noted tolerating TF non communicative Objective Last 24 Hour Vital Signs Date Time Temp Pulse Resp B/P (MAP) Pulse Ox O2 Delivery O2 Flow Rate FiO2 03/31/20 23:26 100.2 105 20 90/56 (67) 100 03/31/20 22:59 108 21 35 03/31/20 22:12 111 110/55 03/31/20 21:27 100.7 03/31/20 20:00 35 03/31/20 20:00 111 03/31/20 20:00 100.8 105 20 110/55 (73) 100 03/31/20 20:00 Mechanical Ventilator 03/31/20 19:09 114 31 35 03/31/20 16:00 98.1 99 20 127/62 (83) 100 03/31/20 16:00 35 03/31/20 16:00 Mechanical Ventilator 03/31/20 15:40 101 03/31/20 15:00 102 31 35 03/31/20 13:58 95 122/66 03/31/20 12:00 98.1 99 24 129/72 (91) 100 03/31/20 12:00 35 03/31/20 12:00 Mechanical Ventilator 03/31/20 11:42 92 03/31/20 11:00 98 28 35 03/31/20 08:00 Mechanical Ventilator 03/31/20 08:00 35 03/31/20 08:00 98.2 95 22 119/72 (88) 100 03/31/20 07:42 94 03/31/20 07:25 94 26 35 03/31/20 05:13 98 139/69 03/31/20 04:00 Mechanical Ventilator 03/31/20 04:00 35 03/31/20 04:00 98.2 97 25 139/68 (91) 100 03/31/20 03:39 92 03/31/20 03:20 100 29 35 03/31/20 00:00 98.4 108 22 137/81 (99) 100 03/31/20 00:00 35 03/31/20 00:00 Mechanical Ventilator 03/30/20 23:46 109 Intake and Output 03/30/20 03/31/20 19:00 07:00 Intake Total 1280 ml 1180 ml Output Total 400 ml 100 ml Balance 880 ml 1080 ml Free Water 140 ml 40 ml IV Total 300 ml 300 ml Tube Feeding 840 ml 840 ml Output Urine Total 300 ml 100 ml Stool Total 100 ml # Bowel Movements 2 3 Laboratory Tests 03/31/20 04:54: POC Whole Blood Glucose 164H 03/31/20 11:17: POC Whole Blood Glucose [Pending] 03/31/20 17:46: POC Whole Blood Glucose 104 03/31/20 23:16: POC Whole Blood Glucose 149H Height (Feet): 5 Height (Inches): 5.00 Weight (Pounds): 147 Objective elderly woman NCAT supple, trach CTA RR abd soft, (+)GT no edema (+) multiple decubs Assessment/Plan Assessment/Plan: Assessment History of intracranial hemorrhage, s/p gastrostomy, OB (+) stools status post tracheostomy, chronic obstructive pulmonary disease, type 2 diabetes, Parkinson's, gout, glaucoma, history of stage IV sacral decubitus ulceration, gout Fever Low albumin Recommendations - continue TF - GT care - elevate HOB - Monitor H&H - no GI w/u per family decision - re check albumin and prealbumin periodically Deanne Rivera MD Mar 31, 2020 23:40
[2020-04-01 03:59] LABS: HEMATOCRIT 23.4 % (37.0-47.0); HEMOGLOBIN 8.2 G/DL (12.0-16.0); MEAN CORPUSCULAR VOLUME 80 FL (80-99); PLATELET COUNT 407 K/UL (150-450); RED BLOOD COUNT 2.93 M/UL (4.20-5.40); RED CELL DISTRIBUTION WIDTH 19.3 % (11.6-14.8); WHITE BLOOD COUNT 21.4 K/UL (4.8-10.8)
[2020-04-01 04:17] VITALS: BP 96/53
[2020-04-01 04:25] LABS: ALBUMIN 1.4 G/DL (3.4-5.0); ALBUMIN/GLOBULIN RATIO 0.2 (1.0-2.7); BILIRUBIN,TOTAL 0.3 MG/DL (0.2-1.0); CREATININE 1.5 MG/DL (0.55-1.30); POTASSIUM 5.2 MMOL/L (3.5-5.1)
[2020-04-01] MEDS: NovoLOG Insulin Flexpen SUBQ SCH ×4 (05:33→23:32)
[2020-04-01] MEDS: dilTIAZem HCl 30mg tab GT SCH ×4 (05:37→22:14)
--- NOTE | 2020-04-01 06:41 | General Progress Note ---
Subjective ROS Limited/Unobtainable: No Allergies: Coded Allergies: No Known Allergies (Unverified , 03/11/20) Objective Last 24 Hour Vital Signs Date Time Temp Pulse Resp B/P (MAP) Pulse Ox O2 Delivery O2 Flow Rate FiO2 04/01/20 05:41 115 106/59 04/01/20 04:17 35 04/01/20 04:17 97.9 111 20 96/53 (67) 100 04/01/20 04:15 Mechanical Ventilator 04/01/20 04:00 115 04/01/20 03:39 110 25 35 04/01/20 00:02 Mechanical Ventilator 04/01/20 00:00 35 04/01/20 00:00 100 03/31/20 23:26 100.2 105 20 90/56 (67) 100 03/31/20 22:59 108 21 35 03/31/20 22:12 111 110/55 03/31/20 21:27 100.7 03/31/20 20:00 35 03/31/20 20:00 111 03/31/20 20:00 100.8 105 20 110/55 (73) 100 03/31/20 20:00 Mechanical Ventilator 03/31/20 19:09 114 31 35 03/31/20 16:00 98.1 99 20 127/62 (83) 100 03/31/20 16:00 35 03/31/20 16:00 Mechanical Ventilator 03/31/20 15:40 101 03/31/20 15:00 102 31 35 03/31/20 13:58 95 122/66 03/31/20 12:00 98.1 99 24 129/72 (91) 100 03/31/20 12:00 35 03/31/20 12:00 Mechanical Ventilator 03/31/20 11:42 92 03/31/20 11:00 98 28 35 03/31/20 08:00 Mechanical Ventilator 03/31/20 08:00 35 03/31/20 08:00 98.2 95 22 119/72 (88) 100 03/31/20 07:42 94 03/31/20 07:25 94 26 35 Intake and Output 03/31/20 04/01/20 19:00 07:00 Intake Total 1557.416 ml 1070 ml Output Total 1750 ml 1650 ml Balance -192.584 ml -580 ml Free Water 50 ml 300 ml IV Total 667.416 ml Tube Feeding 840 ml 770 ml Output Urine Total 1750 ml 1650 ml # Bowel Movements 4 3 Laboratory Tests 03/31/20 11:17: POC Whole Blood Glucose [Pending] 03/31/20 17:46: POC Whole Blood Glucose 104 03/31/20 23:16: POC Whole Blood Glucose 149H 04/01/20 03:30: White Blood Count 21.4H, Red Blood Count 2.93L, Hemoglobin 8.2L, Hematocrit 23.4L, Mean Corpuscular Volume 80, Mean Corpuscular Hemoglobin 28.0, Mean Corpuscular Hemoglobin Concent 35.0, Red Cell Distribution Width 19.3H, Platelet Count 407, Mean Platelet Volume 6.4L, Neutrophils (%) (Auto) , Lymphocytes (%) (Auto) , Monocytes (%) (Auto) , Eosinophils (%) (Auto) , Basophils (%) (Auto) , Neutrophils % (Manual) [Pending], Lymphocytes % (Manual) [Pending], Platelet Estimate [Pending], Platelet Morphology [Pending], Erythrocyte Sedimentation Rate 125H, Sodium Level 141, Potassium Level 5.2H, Chloride Level 107, Carbon Dioxide Level 28, Anion Gap 6, Blood Urea Nitrogen 67H, Creatinine 1.5H, Estimat Glomerular Filtration Rate 41.3, Glucose Level 152H, Calcium Level 9.0, Phosph orus Level 5.0H, Magnesium Level 2.9H, Total Bilirubin 0.3, Aspartate Amino Transf (AST/SGOT) 18, Alanine Aminotransferase (ALT/SGPT) 22, Alkaline Phosphatase 85, C-Reactive Protein, Quantitative 27.3H, Total Protein 7.2, Albumin 1.4L, Globulin 5.8, Albumin/Globulin Ratio 0.2L 04/01/20 05:29: POC Whole Blood Glucose 150H Height (Feet): 5 Height (Inches): 5.00 Weight (Pounds): 147 General Appearance: no apparent distress EENT: normal ENT inspection Neck: supple Cardiovascular: normal rate Respiratory/Chest: decreased breath sounds Abdomen: hypoactive bowel sounds Extremities: non-tender Assessment/Plan Assessment/Plan: Assessment/Plan Assessment/Plan: Assessment History of intracranial hemorrhage, s/p gastrostomy, OB (+) stools status post tracheostomy, chronic obstructive pulmonary disease, type 2 diabetes, Parkinson's, gout, glaucoma, history of stage IV sacral decubitus ulceration, gout Fever Low albumin Recommendations - continue TF - GT care - elevate HOB - Monitor H&H - no GI w/u per family decision - re check albumin and prealbumin periodically Elias Easley MD Apr 01, 2020 06:41
--- NOTE | 2020-04-01 07:17 | NUR ---
NURSE HAND-OFF REPORT: Important Events on Shift:febrile 100.8,medicated with tylenol Patient Status: stable Diet: glucerna 1.2 at 70 cc/hr Pending Orders: cbc,cmp,phoas,mag Pending Results/Labs: Pending MD notification: Latest Vital Signs: Temperature 97.9 , Pulse 115 , B/P 106 /59 , Respiratory Rate 20 , O2 SAT 100 , Mechanical Ventilator, O2 Flow Rate . Vital Sign Comment: EKG Rhythm: Sinus Tachycardia Rhythm change?: N Notified?: N -Dr. Hill MARQUES Response: Latest Ochoa Fall Score: 70 Fall Risk: High Risk Safety Measures: Call light Within Reach, Bed Alarm Zone 1, Side Rails Side Rails x3, Bed position Low and Locked. Fall Precautions: Yellow Socks Yellow Gown Door Sign Patient Fall Education Report given to ADILENE Goddard.
[2020-04-01 07:52] VITALS: BP 124/75
--- NOTE | 2020-04-01 08:13 | NUR ---
NURSE NOTES: Pt awake/not alert, mechanically ventilated, no evidence of pain at this time. Vital signs stable with SR @ 110 on monitor. IV access RFA, flushed with 10 ml NS and locked. G-tube feeding with Glu. 1.2 running at 70 ml/hr, 0 residual, flushed with 30 ml free water. Oral care done. Collier cath in place, patent, draining clear yellow urine into collection bag at foot of bed. P200 mattress overlay installed and running. SCDs on pt BLE and running. Bed left in low position, side rails up x 3 and call light left neat pt's hand.
[2020-04-01] MEDS: Ascorbic Acid 500mg tab ORAL SCH (10:03)
[2020-04-01] MEDS: Zinc Sulfate 220mg ORAL SCH (10:03)
--- NOTE | 2020-04-01 10:36 | NUR ---
RD ASSESSMENT & RECOMMENDATIONS SEE CARE ACTIVITY FOR COMPLETE ASSESSMENT DAILY ESTIMATED NEEDS: Needs based on Advanced wound, critical care, underweight, INFORMATION SECURITY TF/ 50kg 30-40 kcals/kg 9219-3275 total kcals 1.5-2 g protein/kg 75-100 g total protein 25-35ml/kcal mL/kg 4155-1268 total fluid mLs NUTRITION DIAGNOSIS: Increased kcal/prot needs R/T underweight status, wound healing as evidenced by pt @83% IBW w/ underweight BMI of 17.2, admitted w/ multiple wounds, including stage 4 sacral wound. CURRENT TF:Glucerna 1.2 @ 70ml/hr x 24 hrs ENTERAL NUTRITION RECOMMENDATIONS: Glucerna 1.2 @ 65ml/hr x 24 hrs to provide 1560ml, 1872kcal, 94g prot, 1256ml free water * LOWER goal rate to 65ml/hr x 24 hrs- meets 100% est kcal/prot needs, 242mg K less than current TF * HOB over 30 degrees * INCREASE water flushes: 120ml q 6hrs * add Shen BID * Beneprotein not available Monitor K and phos, w/ continued elevated levels, rec TF change to Nepro @ goal rate of 45ml/hr x 24 hrs to provide 1080ml, 1944kcal, 87g prot ADDITIONAL RECOMMENDATIONS: * Per SNF: HT=64" and CY=158# vs EMR wt of 147lbs -> Recalibrate bed scale for accurate CBW * Wound healing: TF rec @ goal will provide 100% RDI Continue Vit C, ZnSO4, and Shen BID * Monitor BGs, consider NISS: h/o DM -> NISS now added * Monitor lytes, need for Nepro (K and phos elevated) * Increase water flushes: BUN and creat trending up
--- NOTE | 2020-04-01 10:41 | Nephrology Progress Note ---
Assessment/Plan Problem List: (1) Hypercalcemia (2) Hypernatremia (3) Sepsis (4) UTI (urinary tract infection) (5) Stage 4 decubitus ulcer (6) Acute on chronic respiratory failure (7) Chronic vegetative state (8) Severe protein-calorie malnutrition Assessment Azotemia and hypernatremia indicative of severe dehydration and free water deficit Acute on chronic respiratory failure, on mechanical ventilation Severe underlying anemia Sepsis Stage IV decubitus Idiopathic obstructive hydrocephalus, history of intracranial hemorrhage Diabetes mellitus Parkinson's disease, dementia Protein calorie malnutrition Plan April 01: Labs reviewed. Serum creatinine up to 1.5 and potassium 5.2. Tonny valenzuela had episodes of hypotension. Will give fluid challenge. Continue to monitor renal parameters. Urine studies ordered. March 31: No labs done today. Remains full code. Trach and vent. Continue per consultants. March 30: Labs reviewed. Trach to vent. Remains full code. Labs reviewed. Renal parameters stable. March 29: Labs reviewed. Renal parameters stable. Continue per consultants. March 28: Labs reviewed. Stable from renal standpoint of view. March 27: Medication list reviewed. Labs reviewed. Stable from renal standpoint of view. March 26: Patient remains stable from renal standpoint of view. Labs and medication list reviewed. March 25: Labs reviewed. Renal parameters stable. Continue per consultants. March 24: Labs reviewed. Renal parameters stable. Continue per consultants. March 23: Labs reviewed. Renal parameters are stable. Continue per consultants. March 22: Labs reviewed. Serum sodium 151. D5W IV given. Continue per consultants. March 21: Labs reviewed. Renal parameters stable. Continue per consultants. March 20: Labs reviewed. Serum sodium lower 147. Serum calcium stable. Continue as is. March 19: Labs reviewed. Serum sodium unchanged at 150. Another liter of D5W ordered. Serum calcium stable. Continue as is. March 18: Labs reviewed. Serum sodium 150. 1 L of D5W IV ordered. Serum calcium stable. Continue as is. March 17: Labs reviewed. Renal parameters stable. Continue to watch serum calcium. Continue per consultants. March 16: Labs reviewed. Serum calcium stable. Medication list reviewed. Abnormal electrolyte addressed. Continue current management. March 15: Labs reviewed. Serum calcium lowering. Abnormal electrolytes addressed. Continue per consultants. March 14: Labs reviewed. Status quo. Serum calcium lowering. Magnesium and potassium supplement ordered. Continue per current treatment plan. March 13: 1 dose of pamidronate 60 mg for high calcium IV ordered. Labs reviewed. Medication list reviewed. Electrolytes improving. Hemoglobin higher after transfusion. Nasal calcitonin initiated March 12: D5W at 75 cc an hour Monitor electrolytes Monitor hemoglobin hematocrit Gastric support Consider transfusion Continue per orders Parameters for blood pressure medication Antibiotics per ID Subjective ROS Limited/Unobtainable: Yes Objective Objective Last 24 Hour Vital Signs Date Time Temp Pulse Resp B/P (MAP) Pulse Ox O2 Delivery O2 Flow Rate FiO2 04/01/20 08:00 Mechanical Ventilator 04/01/20 08:00 35 04/01/20 08:00 111 04/01/20 07:52 98.2 109 20 124/75 (91) 100 04/01/20 05:41 115 106/59 04/01/20 04:17 35 04/01/20 04:17 97.9 111 20 96/53 (67) 100 04/01/20 04:15 Mechanical Ventilator 04/01/20 04:00 115 04/01/20 03:39 110 25 35 04/01/20 00:02 Mechanical Ventilator 04/01/20 00:00 35 04/01/20 00:00 100 03/31/20 23:26 100.2 105 20 90/56 (67) 100 03/31/20 22:59 108 21 35 03/31/20 22:12 111 110/55 03/31/20 21:27 100.7 03/31/20 20:00 35 03/31/20 20:00 111 03/31/20 20:00 100.8 105 20 110/55 (73) 100 03/31/20 20:00 Mechanical Ventilator 03/31/20 19:09 114 31 35 03/31/20 16:00 98.1 99 20 127/62 (83) 100 03/31/20 16:00 35 03/31/20 16:00 Mechanical Ventilator 03/31/20 15:40 101 03/31/20 15:00 102 31 35 03/31/20 13:58 95 122/66 03/31/20 12:00 98.1 99 24 129/72 (91) 100 03/31/20 12:00 35 03/31/20 12:00 Mechanical Ventilator 03/31/20 11:42 92 03/31/20 11:00 98 28 35 Intake and Output 03/31/20 04/01/20 19:00 07:00 Intake Total 1557.416 ml 1070 ml Output Total 1750 ml 1650 ml Balance -192.584 ml -580 ml Free Water 50 ml 300 ml IV Total 667.416 ml Tube Feeding 840 ml 770 ml Output Urine Total 1750 ml 1650 ml # Bowel Movements 4 3 Current Medications Medications (Trade) Dose Ordered Sig/Zaki Route PRN Reason Start Time Stop Time Status Last Admin Dose Admin Acetaminophen (Tylenol) 650 mg Q6H PRN GT Temp >100.5, Mild Pain 03/11/20 06:30 04/10/20 06:29 03/31/20 20:50 Albumin Human 500 ml @ 0 mls/hr Q0M IV 04/01/20 09:15 04/01/20 11:00 Ascorbic Acid (Vitamin C) 500 mg DAILY ORAL 03/28/20 09:00 04/27/20 08:59 04/01/20 10:03 Calcitonin [place] (Miacalcin) 1 sprays DAILY NASAL 03/13/20 11:00 06/11/20 10:59 04/01/20 10:04 Dextrose (Dextrose 50%) 25 ml Q30M PRN IV Hypoglycemia 03/13/20 23:30 06/11/20 23:29 Dextrose (Dextrose 50%) 50 ml Q30M PRN IV Hypoglycemia 03/13/20 23:30 06/11/20 23:29 Diltiazem HCl (Cardizem Tab) 30 mg EVERY 8 HOURS GT 03/24/20 14:00 04/23/20 13:59 04/01/20 05:41 Diphenhydramine HCl (Benadryl) 25 mg Q8H PRN ORAL Itching 03/14/20 15:00 04/13/20 14:59 03/14/20 15:50 Famotidine (Pepcid) 20 mg BID GT 03/18/20 18:00 06/09/20 08:59 04/01/20 10:04 Insulin Aspart (NovoLOG) Q6HR SUBQ 03/14/20 00:00 06/12/20 00:00 04/01/20 05:33 Multivitamins (Multivitamins) 1 tab DAILY ORAL 03/28/20 09:00 04/27/20 08:59 04/01/20 10:03 Ondansetron HCl (Zofran) 4 mg Q4H PRN IVP Nausea & Vomiting 03/11/20 06:30 04/10/20 06:29 Vancomycin HCl ([facility] pharmacy to dose) 1 ea DAILY PRN MISC Per rx protocol 03/31/20 09:00 04/30/20 08:59 Vancomycin HCl 500 mg/Sodium Chloride 110 ml @ 110 mls/hr Q12H IVPB 03/31/20 23:00 04/05/20 22:59 03/31/20 22:13 Zinc Sulfate (Zinc Sulfate) 220 mg DAILY ORAL 03/28/20 09:00 04/07/20 09:00 04/01/20 10:03 Laboratory Tests 03/31/20 11:17: POC Whole Blood Glucose [Pending] 03/31/20 17:46: POC Whole Blood Glucose 104 03/31/20 23:16: POC Whole Blood Glucose 149H 04/01/20 03:30: White Blood Count 21.4H, Red Blood Count 2.93L, Hemoglobin 8.2L, Hematocrit 23.4L, Mean Corpuscular Volume 80, Mean Corpuscular Hemoglobin 28.0, Mean Corpuscular Hemoglobin Concent 35.0, Red Cell Distribution Width 19.3H, Platelet Count 407, Mean Platelet Volume 6.4L, Neutrophils (%) (Auto) , Lymphocytes (%) (Auto) , Monocytes (%) (Auto) , Eosinophils (%) (Auto) , Basophils (%) (Auto) , Differential Total Cells Counted 100, Neutrophils % (Manual) 80H, Lymphocytes % (Manual) 6L, Monocytes % (Manual) 8, Eosinophils % (Manual) 6H, Basophils % (Manual) 0, Band Neutrophils 0, Nucleated Red Blood Cells 2, Platelet Estimate Adequate, Platelet Morphology Normal, Polychromasia 1+, Hypochromasia 1+, Anisocytosis 2+, Erythrocyte Sedimentation Rate 125H, Sodium Level 141, Potassium Level 5.2H, Chloride Level 107, Carbon Dioxide Level 28, Anion Gap 6, Blood Urea Nitrogen 67H, Creatinine 1.5H, Estimat Glomerular Filtration Rate 41.3, Glucose Level 152H, Calcium Level 9.0, Phosphorus Level 5.0H, Magnesium Level 2.9H, Total Bilirubin 0.3, Aspartate Amino Transf (AST/SGOT) 18, Alanine Aminotransferase (ALT/SGPT) 22, Alkaline Phosphatase 85, C-Reactive Protein, Quantitative 27.3H, Total Protein 7.2, Albumin 1.4L, Globulin 5.8, Albumin/Globulin Ratio 0.2L 04/01/20 05:29: POC Whole Blood Glucose 150H Height (Feet): 5 Height (Inches): 5.00 Weight (Pounds): 147 General Appearance: no apparent distress EENT: other - Trach to vent Cardiovascular: tachycardia Respiratory/Chest: decreased breath sounds Abdomen: distended Mathew Huntley MD Apr 01, 2020 10:41
--- NOTE | 2020-04-01 11:01 | Pulmonolgy Critical Care Note ---
Critical Care - Asmt/Plan Assessment/Plan: ASSESSMENT Acute on chronic respiratory failure Sepsis with MRSA bacteremia Probably pneumonia Persistent leukocytosis Ventilator dependent respiratory failure, tracheostomy status COPD Dysphagia , feeding by G-tube History of ICH DM HTN E/lyte abnormalities Severe protein calorie malnutrition Sacral decubitus ulcer , stage IV-present on admission Anemia Dementia Chronic vegetative state PLAN OF CARE SHIMON vent support, pulmonary toilet trach care baseline ABG stable on current settings, keep as is and titrate as needed repeat CXR in am and ABG SCX abx as per ID recs-> Vanco initial BCX + MRSA. repeated BCX NGT ECHO with pEF 65 to 70% , no evidence of vegetation , right ventricular systolic pressure of 40 consistent with mild pulmonary hypertension family declined DEBBIE indium scan ->NGT leuk worse, will check SCX, CXR DVT prophylaxis aspiration precaution G-tube feeding TF formula, goal rate and protein supplement as per RD recs BS management with SSI monitor renal parameters, avoid nephrotoxics Hyper Ca resolved , s/p Aredia, s/p calcitonin fup with further nephro recs monitor HH with goal to keep Hgb > 7 wound care as per surgeon recommendation supportive care case discussed and evaluated by supervising physician Critical Care - Objective Last 24 Hour Vital Signs Date Time Temp Pulse Resp B/P (MAP) Pulse Ox O2 Delivery O2 Flow Rate FiO2 04/01/20 08:00 Mechanical Ventilator 04/01/20 08:00 35 04/01/20 08:00 111 04/01/20 07:52 98.2 109 20 124/75 (91) 100 04/01/20 05:41 115 106/59 04/01/20 04:17 35 04/01/20 04:17 97.9 111 20 96/53 (67) 100 04/01/20 04:15 Mechanical Ventilator 04/01/20 04:00 115 04/01/20 03:39 110 25 35 04/01/20 00:02 Mechanical Ventilator 04/01/20 00:00 35 04/01/20 00:00 100 03/31/20 23:26 100.2 105 20 90/56 (67) 100 03/31/20 22:59 108 21 35 03/31/20 22:12 111 110/55 03/31/20 21:27 100.7 03/31/20 20:00 35 03/31/20 20:00 111 12/4/20 20:00 100.8 105 20 110/55 (73) 100 03/31/20 20:00 Mechanical Ventilator 03/31/20 19:09 114 31 35 03/31/20 16:00 98.1 99 20 127/62 (83) 100 03/31/20 16:00 35 03/31/20 16:00 Mechanical Ventilator 03/31/20 15:40 101 03/31/20 15:00 102 31 35 03/31/20 13:58 95 122/66 03/31/20 12:00 98.1 99 24 129/72 (91) 100 03/31/20 12:00 35 03/31/20 12:00 Mechanical Ventilator 03/31/20 11:42 92 03/31/20 11:00 98 28 35 Objective: General Appearance: no acute distress, chronically ill looking, bedridden,cachetic, not responsive, vent dependent female on vent AC 400-20-35% PEEP5 HEENT: normocephalic, anicteric, status post trach - Portex # 7, secretions large amount, [place] color, thick consistency Respiratory: no respiratory distress, few scattered rhonchi Cardiovascular: ST Abdomen: normal bowel sounds, soft, non tender, G tube Extremities: no edema, pedal pulses normal Neurologic: abnormal gait, lethargic, Musculoskeletal: atrophy - BLE Micro: Microbiology Date/Time Source Procedure Growth Status 03/29/20 12:12 Stool Stool Culture - Final NO SALMONELLA,SHIGELLA,OR CAMPYLOBACT... Complete 03/29/20 12:12 Stool Clostridium difficile Toxin Assay - Final Complete Accucheck: 150 Critical Care - Subjective ROS Limited/Unobtainable: Yes Interval Events: leuk with trend up this am, fevers lasr night, currently afebrile tachy Condition: critical EKG Rhythm: Sinus Tachycardia FI02: 35 Vent Support Breath Rate: 16 Vent Support Mode: AC Vent Tidal Volume: 400 Sputum Amount: Small PEEP: 5.0 PIP: 28 Tube Feeding Amount: 70 I&O: Intake and Output 03/31/20 04/01/20 18:59 06:59 Intake Total 1557.416 ml 1140 ml Output Total 1750 ml 1650 ml Balance -192.584 ml -510 ml Free Water 50 ml 300 ml IV Total 667.416 ml Tube Feeding 840 ml 840 ml Output Urine Total 1750 ml 1650 ml # Bowel Movements 4 3 CXR: 03/25 1. Decreased left pleural effusion. Patchy opacity in the left lower lung may represent atelectasis versus pneumonia. 2. Asymmetric lucency in the right lung may be secondary to artifact from patient rotation. Isabel Polo NP Apr 01, 2020 11:01
[2020-04-01] MEDS: Vancomycin 500 MG in NS 110 ML IVPB SCH ×2 (11:17→22:14)
--- NOTE | 2020-04-01 11:18 | NUR ---
CASE MANAGEMENT:REVIEW SI;SEPSIS. BACTEREMIA. TRACH/VENT DEPENDENT. 100.2 115 25 90/56 100% TRACH/VENT FIO2 35% WBC 21.4 H/H 8.2/23.4 K+ 5.2 BUN 67 CR 1.5 BG 1.5 PHOS 5.0 MAG 2.9 CRP 27.3 ALB 1.4 IS;IVF NS BOLUS VANCOMYCIN IV Q12 ZINC GT QD PEPCID GT BID INSULIN NOVOLOG SQ Q6 VIT C GT QD SHIMON STATUS DCP;FROM [place] [facility]
[2020-04-01 12:00] VITALS: BP 121/67
[2020-04-01] MEDS ORDERED: Sterile Water Irrig 1000ml IRRIG ONE (12:01)
[2020-04-01] MEDS ORDERED: NS 275ml ONE (12:01)
[2020-04-01] MEDS ORDERED: Tubing IV Secondary IV ONE (12:01)
[2020-04-01 16:29] VITALS: BP 106/63
--- NOTE | 2020-04-01 16:34 | Infectious Diseases Prog Note ---
Assessment/Plan 74yo F with: Febrile, persistent - most likely 2/2 worsening sacral decub, all other w/u neg Leukocytosis, persistent ; increasing Thrombocytosis, increasing >> improving Sepsis Left lower lung infiltrate Acute on chronic resp failure SP trach MRSA bacteremia DEBBIE cancelled as family refused RML cavitation, not seen on CT chest 03/11 BCx +MRSA Resp cx +PsA (S-Zosyn, I-merissa and cefepime) UCx 30-40k ACB (colonizer) COVID rapid Ag neg CXR: Midline tracheostomy. Small left pleural effusion. Hyperinflation with flattening of the diaphragms and emphysema, consistent with COPD. No lobar infiltrate. 03/12 BCx NTD 03/13 C.dif neg 03/13 BCx NTD 03/14 BCx NTD 03/14 CT A/P: 1. Sacrococcygeal decubitus ulcers with associated osteomyelitis. 2. Small left pleural effusion. Left lower lobe atelectasis. 3. Bladder wall thickening. Foci of gas in the bladder. Correlate for recent instrumentation versus cystitis. Lung bases: Small nodular focus of cavitation in the right middle lobe. This may be secondary to infection. Recommend continued follow-up. Emphysematous changes in the lung bases. 1.2 cm nodular focus with some central cavitation in the right middle lobe. Pleural space: Small left pleural effusion. Left lower lobe atelectasis. 03/14 TTE: No vegetations, thickened valves 03/17 CXR: 1. Unchanged tracheostomy. 2. Mildly more pronounced linear interstitial prominence could represent atypical infection or interstitial pulmonary edema in the proper clinical context. 3. Unchanged hyperinflation. 4. Unchanged mild retrocardiac atelectasis without or with consolidation. 03/20 BCx NTD 03/20 CT chest: Centrilobular emphysema seen throughout both lungs with with an upper lobe predominance, indicating extensive COPD changes. Mosaic attenuation pattern in the upper lobes probably related to COPD, although this is a nonspecific finding. Dense consolidation and atelectasis of much of the left lower lobe. This could represent pneumonia. Groundglass opacities in the inferior left upper lobe. These could represent areas of acute inflammation, or could represent post inflammatory changes. 8mm nodule in the right middle lobe, also described on prior CT scan. This previously demonstrated a cavity. Cavitation currently not evident. Differential considerations include neoplasm, acute or chronic inflammatory lesion. Recommend at a minimum follow-up CT scan in 6 months 03/21 Resp cx +Serratia and PsA (S-Zosyn) 03/21 SPC changed 03/22 UA/UCx +yeast 03/27 Indium scan: Limited exam, as described. No definite abnormality to explain stated clinical history of leukocytosis R/o C.dif 03/29 C.dif neg Worsening sacral decub ulceration, likely cause of ongoing low-grade fevers BUE and BLE neg for DVT 03/21 MRSA nares positive VDRF S/p trach/PEG Bed bound Sacral decub ulceration w/ underlying OM Plan: IV Vancomycin #2 (abx d#9) for MRSA bacteremia - --duration 6 weeks given inability to r/o endocarditis without DEBBIE, end date = 04/21/2003/31 SP linzolid #8 03/30 SP levofloxacin #7 for ACB in UCx 03/28 SP Zosyn #10 for pna 03/22 Sp IV vancomycin #11 03/14 SP cefepime #4 Appreciate Wound Care/Surgery input on worsening sacral decub - this is likely the cause of ongoing fevers Agree with hospice evaluation if family decides Trend WBC Trend temp curve Monitor CBC/CMP Monitor temp curve, hemodynamics Monitor resp status repeat cultures D/w RN Thank you for this consult. [facility] will continue to follow. Subjective Allergies: Coded Allergies: No Known Allergies (Unverified , 03/11/20) Objective Last 24 Hour Vital Signs Date Time Temp Pulse Resp B/P (MAP) Pulse Ox O2 Delivery O2 Flow Rate FiO2 04/01/20 16:00 Mechanical Ventilator 04/01/20 16:00 35 04/01/20 14:17 134 121/67 04/01/20 12:31 134 04/01/20 12:00 110 04/01/20 12:00 35 04/01/20 12:00 99.1 100 24 121/67 (85) 100 04/01/20 12:00 Mechanical Ventilator 04/01/20 10:30 112 23 35 04/01/20 08:00 Mechanical Ventilator 04/01/20 08:00 35 04/01/20 08:00 111 04/01/20 07:52 98.2 109 20 124/75 (91) 100 04/01/20 07:05 105 18 35 04/01/20 05:41 115 106/59 04/01/20 04:17 35 04/01/20 04:17 97.9 111 20 96/53 (67) 100 04/01/20 04:15 Mechanical Ventilator 04/01/20 04:00 115 04/01/20 03:39 110 25 35 04/01/20 00:02 Mechanical Ventilator 04/01/20 00:00 35 04/01/20 00:00 100 03/31/20 23:26 100.2 105 20 90/56 (67) 100 03/31/20 22:59 108 21 35 03/31/20 22:12 111 110/55 03/31/20 21:27 100.7 03/31/20 20:00 35 03/31/20 20:00 111 03/31/20 20:00 100.8 105 20 110/55 (73) 100 03/31/20 20:00 Mechanical Ventilator 03/31/20 19:09 114 31 35 Height (Feet): 5 Height (Inches): 5.00 Weight (Pounds): 147 Laboratory Tests Test 03/31/20 17:46 03/31/20 23:16 04/01/20 03:30 04/01/20 05:29 POC Whole Blood Glucose 104 MG/DL (74-106) 149 MG/DL (74-106) H 150 MG/DL (74-106) H White Blood Count 21.4 K/UL (4.8-10.8) H Red Blood Count 2.93 M/UL (4.20-5.40) L Hemoglobin 8.2 G/DL (12.0-16.0) L Hematocrit 23.4 % (37.0-47.0) L Mean Corpuscular Volume 80 FL (80-99) Mean Corpuscular Hemoglobin 28.0 PG (27.0-31.0) Mean Corpuscular Hemoglobin Concent 35.0 G/DL (32.0-36.0) Red Cell Distribution Width 19.3 % (11.6-14.8) H Platelet Count 407 K/UL (150-450) Mean Platelet Volume 6.4 FL (6.5-10.1) L Neutrophils (%) (Auto) % (45.0-75.0) Lymphocytes (%) (Auto) % (20.0-45.0) Monocytes (%) (Auto) % (1.0-10.0) Eosinophils (%) (Auto) % (0.0-3.0) Basophils (%) (Auto) % (0.0-2.0) Differential Total Cells Counted 100 Neutrophils % (Manual) 80 % (45-75) H Lymphocytes % (Manual) 6 % (20-45) L Monocytes % (Manual) 8 % (1-10) Eosinophils % (Manual) 6 % (0-3) H Basophils % (Manual) 0 % (0-2) Band Neutrophils 0 % (0-8) Nucleated Red Blood Cells 2 /100 WBC Platelet Estimate Adequate Platelet Morphology Normal Polychromasia 1+ Hypochromasia 1+ Anisocytosis 2+ Erythrocyte Sedimentation Rate 125 MM/HR (0-30) H Sodium Level 141 MMOL/L (136-145) Potassium Level 5.2 MMOL/L (3.5-5.1) H Chloride Level 107 MMOL/L (98-107) Carbon Dioxide Level 28 MMOL/L (21-32) Anion Gap 6 mmol/L (5-15) Blood Urea Nitrogen 67 mg/dL (7-18) H Creatinine 1.5 MG/DL (0.55-1.30) H Estimat Glomerular Filtration Rate 41.3 mL/min (>60) Glucose Level 152 MG/DL (74-106) H Calcium Level 9.0 MG/DL (8.5-10.1) Phosphorus Level 5.0 MG/DL (2.5-4.9) H Magnesium Level 2.9 MG/DL (1.8-2.4) H Total Bilirubin 0.3 MG/DL (0.2-1.0) Aspartate Amino Transf (AST/SGOT) 18 U/L (15-37) Alanine Aminotransferase (ALT/SGPT) 22 U/L (12-78) Alkaline Phosphatase 85 U/L (46-116) C-Reactive Protein, Quantitative 27.3 mg/dL (0.00-0.90) H Total Protein 7.2 G/DL (6.4-8.2) Albumin 1.4 G/DL (3.4-5.0) L Globulin 5.8 g/dL Albumin/Globulin Ratio 0.2 (1.0-2.7) L Test 04/01/20 11:00 04/01/20 11:32 Urine Random Sodium 49 mmol/L (20-110) POC Whole Blood Glucose 105 MG/DL (74-106) Current Medications Medications (Trade) Dose Ordered Sig/Zaki Route PRN Reason Start Time Stop Time Status Last Admin Dose Admin Acetaminophen (Tylenol) 650 mg Q6H PRN GT Temp >100.5, Mild Pain 03/11/20 06:30 04/10/20 06:29 03/31/20 20:50 Ascorbic Acid (Vitamin C) 500 mg DAILY ORAL 03/28/20 09:00 04/27/20 08:59 04/01/20 10:03 Calcitonin [place] (Miacalcin) 1 sprays DAILY NASAL 03/13/20 11:00 06/11/20 10:59 04/01/20 10:04 Dextrose (Dextrose 50%) 25 ml Q30M PRN IV Hypoglycemia 03/13/20 23:30 06/11/20 23:29 Dextrose (Dextrose 50%) 50 ml Q30M PRN IV Hypoglycemia 03/13/20 23:30 06/11/20 23:29 Diltiazem HCl (Cardizem Tab) 30 mg EVERY 8 HOURS GT 03/24/20 14:00 04/23/20 13:59 04/01/20 14:17 Diphenhydramine HCl (Benadryl) 25 mg Q8H PRN ORAL Itching 03/14/20 15:00 04/13/20 14:59 03/14/20 15:50 Famotidine (Pepcid) 20 mg BID GT 03/18/20 18:00 06/09/20 08:59 04/01/20 10:04 Insulin Aspart (NovoLOG) Q6HR SUBQ 03/14/20 00:00 06/12/20 00:00 04/01/20 05:33 Multivitamins (Multivitamins) 1 tab DAILY ORAL 03/28/20 09:00 04/27/20 08:59 04/01/20 10:03 Ondansetron HCl (Zofran) 4 mg Q4H PRN IVP Nausea & Vomiting 03/11/20 06:30 04/10/20 06:29 Vancomycin HCl (Vanco pharmacy to dose) 1 ea DAILY PRN MISC Per rx protocol 03/31/20 09:00 04/30/20 08:59 Vancomycin HCl 500 mg/Sodium Chloride 110 ml @ 110 mls/hr Q12H IVPB 03/31/20 23:00 04/05/20 22:59 04/01/20 11:17 Zinc Sulfate (Zinc Sulfate) 220 mg DAILY ORAL 03/28/20 09:00 04/07/20 09:00 04/01/20 10:03 Flori Sharma M.D. Apr 01, 2020 16:34
--- NOTE | 2020-04-01 16:56 | Internal Med Progress Note ---
Subjective Date of Service: Apr 01, 2020 Physician Name Piyush Barajas Attending Physician Jesus Lutz MD Current Medications Medications (Trade) Dose Ordered Sig/Zaki Route PRN Reason Start Time Stop Time Status Last Admin Dose Admin Acetaminophen (Tylenol) 650 mg Q6H PRN GT Temp >100.5, Mild Pain 03/11/20 06:30 04/10/20 06:29 03/31/20 20:50 Ascorbic Acid (Vitamin C) 500 mg DAILY ORAL 03/28/20 09:00 04/27/20 08:59 04/01/20 10:03 Calcitonin [place] (Miacalcin) 1 sprays DAILY NASAL 03/13/20 11:00 06/11/20 10:59 04/01/20 10:04 Dextrose (Dextrose 50%) 25 ml Q30M PRN IV Hypoglycemia 03/13/20 23:30 06/11/20 23:29 Dextrose (Dextrose 50%) 50 ml Q30M PRN IV Hypoglycemia 03/13/20 23:30 06/11/20 23:29 Diltiazem HCl (Cardizem Tab) 30 mg EVERY 8 HOURS GT 03/24/20 14:00 04/23/20 13:59 04/01/20 14:17 Diphenhydramine HCl (Benadryl) 25 mg Q8H PRN ORAL Itching 03/14/20 15:00 04/13/20 14:59 03/14/20 15:50 Famotidine (Pepcid) 20 mg BID GT 03/18/20 18:00 06/09/20 08:59 04/01/20 10:04 Insulin Aspart (NovoLOG) Q6HR SUBQ 03/14/20 00:00 06/12/20 00:00 04/01/20 05:33 Multivitamins (Multivitamins) 1 tab DAILY ORAL 03/28/20 09:00 04/27/20 08:59 04/01/20 10:03 Ondansetron HCl (Zofran) 4 mg Q4H PRN IVP Nausea & Vomiting 03/11/20 06:30 04/10/20 06:29 Vancomycin HCl (Vanco pharmacy to dose) 1 ea DAILY PRN MISC Per rx protocol 03/31/20 09:00 04/30/20 08:59 Vancomycin HCl 500 mg/Sodium Chloride 110 ml @ 110 mls/hr Q12H IVPB 03/31/20 23:00 04/05/20 22:59 04/01/20 11:17 Zinc Sulfate (Zinc Sulfate) 220 mg DAILY ORAL 03/28/20 09:00 04/07/20 09:00 04/01/20 10:03 Allergies: Coded Allergies: No Known Allergies (Unverified , 03/11/20) ROS Limited/Unobtainable: Yes Subjective 74 YO F trach dependent admitted with hypoxic respiratory failure. Now pneumonia and sepsis. Cover for Int Med-Dr Lutz. Step down unit. Diarrhea reported overnight Objective Last Vital Signs Date Time Temp Pulse Resp B/P (MAP) Pulse Ox O2 Delivery O2 Flow Rate FiO2 04/01/20 16:29 97.2 106 25 106/63 (77) 100 04/01/20 16:00 Mechanical Ventilator 04/01/20 16:00 35 Laboratory Tests Test 03/31/20 17:46 03/31/20 23:16 04/01/20 03:30 04/01/20 05:29 POC Whole Blood Glucose 104 MG/DL (74-106) 149 MG/DL (74-106) H 150 MG/DL (74-106) H White Blood Count 21.4 K/UL (4.8-10.8) H Red Blood Count 2.93 M/UL (4.20-5.40) L Hemoglobin 8.2 G/DL (12.0-16.0) L Hematocrit 23.4 % (37.0-47.0) L Mean Corpuscular Volume 80 FL (80-99) Mean Corpuscular Hemoglobin 28.0 PG (27.0-31.0) Mean Corpuscular Hemoglobin Concent 35.0 G/DL (32.0-36.0) Red Cell Distribution Width 19.3 % (11.6-14.8) H Platelet Count 407 K/UL (150-450) Mean Platelet Volume 6.4 FL (6.5-10.1) L Neutrophils (%) (Auto) % (45.0-75.0) Lymphocytes (%) (Auto) % (20.0-45.0) Monocytes (%) (Auto) % (1.0-10.0) Eosinophils (%) (Auto) % (0.0-3.0) Basophils (%) (Auto) % (0.0-2.0) Differential Total Cells Counted 100 Neutrophils % (Manual) 80 % (45-75) H Lymphocytes % (Manual) 6 % (20-45) L Monocytes % (Manual) 8 % (1-10) Eosinophils % (Manual) 6 % (0-3) H Basophils % (Manual) 0 % (0-2) Band Neutrophils 0 % (0-8) Nucleated Red Blood Cells 2 /100 WBC Platelet Estimate Adequate Platelet Morphology Normal Polychromasia 1+ Hypochromasia 1+ Anisocytosis 2+ Erythrocyte Sedimentation Rate 125 MM/HR (0-30) H Sodium Level 141 MMOL/L (136-145) Potassium Level 5.2 MMOL/L (3.5-5.1) H Chloride Level 107 MMOL/L (98-107) Carbon Dioxide Level 28 MMOL/L (21-32) Anion Gap 6 mmol/L (5-15) Blood Urea Nitrogen 67 mg/dL (7-18) H Creatinine 1.5 MG/DL (0.55-1.30) H Estimat Glomerular Filtration Rate 41.3 mL/min (>60) Glucose Level 152 MG/DL (74-106) H Calcium Level 9.0 MG/DL (8.5-10.1) Phosphorus Level 5.0 MG/DL (2.5-4.9) H Magnesium Level 2.9 MG/DL (1.8-2.4) H Total Bilirubin 0.3 MG/DL (0.2-1.0) Aspartate Amino Transf (AST/SGOT) 18 U/L (15-37) Alanine Aminotransferase (ALT/SGPT) 22 U/L (12-78) Alkaline Phosphatase 85 U/L (46-116) C-Reactive Protein, Quantitative 27.3 mg/dL (0.00-0.90) H Total Protein 7.2 G/DL (6.4-8.2) Albumin 1.4 G/DL (3.4-5.0) L Globulin 5.8 g/dL Albumin/Globulin Ratio 0.2 (1.0-2.7) L Test 04/01/20 11:00 04/01/20 11:32 Urine Random Sodium 49 mmol/L (20-110) POC Whole Blood Glucose 105 MG/DL (74-106) Intake and Output 03/31/20 04/01/20 19:00 07:00 Intake Total 1557.416 ml 1070 ml Output Total 1750 ml 1650 ml Balance -192.584 ml -580 ml Free Water 50 ml 300 ml IV Total 667.416 ml Tube Feeding 840 ml 770 ml Output Urine Total 1750 ml 1650 ml # Bowel Movements 4 3 Objective PHYSICAL EXAMINATION: GENERAL: The patient is a thin-appearing female who is intubated and nonverbal. HEENT: Eyes, pupils are equal and responsive to light and accommodation. Extraocular movements are intact. NECK: Supple without lymphadenopathy. Tracheostomy is in place. CHEST: Mech vent; Diffuse wheezes bilaterally without rhonchi. CARDIOVASCULAR: Tachycardic, regular rhythm. S1, S2 are normal without murmurs, rubs, or gallops. ABDOMEN: Soft, nontender, and nondistended. Positive bowel sounds. No evidence of hepatosplenomegaly. Currently, no rebound or guarding noted. EXTREMITIES: Negative for clubbing, cyanosis, or edema. RECTAL/GENITAL: Not performed. NEUROLOGIC: Unable to assess. chest x-ray revealed left lower lobe consolidation consistent with pneumonia Assessment/Plan Assessment/Plan ASSESSMENT: This is a 74-year-old female. 1. Left lower lobe pneumonia. 2. Respiratory failure. 3. Hypernatremia. 4. Renal failure. 5. Hypoxemia. 6. Tracheostomy dependence. 7. Chronic obstructive pulmonary disease. 8. Diabetes type 2. 9. Parkinson disease. 10. Gout. 11. Glaucoma. 12. Sacral decubitus ulcer stage IV. 13. History of intracranial hemorrhage. 14. Hydrocephalus. 15. sepsis=MRSA 16. UTI=MDR acenitobacter 17. diarrhea TREATMENT: 1. Left lower lobe pneumonia/respiratory failure/sepsis. Pulmonary consultation =Dr. Patti Matta. ABX= continue linezolid and levaquin. S/P vanco and zosyn -see ID note Infectious disease=Dr. Villegas. We will follow recommendations of Infectious Disease and Pulmonary. 2. Hypernatremia. Hypernatremia may be secondary to renal failure versus dehydration. Nephrology consultation =. 3. Renal failure nephrology consultation =Dr. Huntley. 4. Tracheostomy dependence. 5. Chronic obstructive pulmonary disease. 6. Diabetes type 2. NovoLog sliding scale has been instituted. 7. Parkinson disease. 8. Gout. Continue allopurinol as above. 9. Glaucoma. 10. Sacral decubitus ulcer stage IV. A general surgery consultation has been obtained with Dr. Chris Hunter. 11. History of intracranial hemorrhage. 12. DEBBIE refused by patient's daughter; cardiology=Trista Alejandre and Rachel 13. Await indium scan result 14. Stool for C. Diff and cult Piyush Barajas MD Apr 01, 2020 16:55
--- NOTE | 2020-04-01 18:22 | Cardiac Electrophysiology PN ---
Assessment/Plan Assessment/Plan 1. MRSA bacteremia. Most recent blood culture from March 13, 2020 showed no growth. Echocardiogram showed ejection fraction of 60-65% with no clear vegetation. DEBBIE cancelled as family refused. On iv Abx per ID. Indium scan no clear source 2. VDRF , status post tracheostomy.On 40% Fio2 3. Dysphagia, status post PEG placement. 4. History of intracranial hemorrhage. 5. COPD. 6. Diabetes. 7. Glaucoma. 8. Sacral decubitus stage IV. 9. Hypertension, on Cardizem 10. Transient SVT. On Cardizem 30 tid DW RN Subjective Subjective On the Vent in sinus tach Fio2 35% and PEEP 5.Still high WBC Family refused DEBBIE. Had episodes of SVT lasting less than 20 seconds 03/23/20. Indium scan > no clear source. Hospice eval pending if family agrees. On iv Zyvox per ID Objective Last 24 Hour Vital Signs Date Time Temp Pulse Resp B/P (MAP) Pulse Ox O2 Delivery O2 Flow Rate FiO2 04/01/20 16:29 97.2 106 25 106/63 (77) 100 04/01/20 16:00 Mechanical Ventilator 04/01/20 16:00 35 04/01/20 15:47 107 24 35 04/01/20 14:17 134 121/67 04/01/20 12:31 134 04/01/20 12:00 110 04/01/20 12:00 35 04/01/20 12:00 99.1 100 24 121/67 (85) 100 04/01/20 12:00 Mechanical Ventilator 04/01/20 10:30 112 23 35 04/01/20 08:00 Mechanical Ventilator 04/01/20 08:00 35 04/01/20 08:00 111 04/01/20 07:52 98.2 109 20 124/75 (91) 100 04/01/20 07:05 105 18 35 04/01/20 05:41 115 106/59 04/01/20 04:17 35 04/01/20 04:17 97.9 111 20 96/53 (67) 100 04/01/20 04:15 Mechanical Ventilator 04/01/20 04:00 115 04/01/20 03:39 110 25 35 04/01/20 00:02 Mechanical Ventilator 04/01/20 00:00 35 04/01/20 00:00 100 03/31/20 23:26 100.2 105 20 90/56 (67) 100 03/31/20 22:59 108 21 35 03/31/20 22:12 111 110/55 03/31/20 21:27 100.7 03/31/20 20:00 35 03/31/20 20:00 111 03/31/20 20:00 100.8 105 20 110/55 (73) 100 03/31/20 20:00 Mechanical Ventilator 03/31/20 19:09 114 31 35 Intake and Output 03/31/20 04/01/20 19:00 07:00 Intake Total 1557.416 ml 1070 ml Output Total 1750 ml 1650 ml Balance -192.584 ml -580 ml Free Water 50 ml 300 ml IV Total 667.416 ml Tube Feeding 840 ml 770 ml Output Urine Total 1750 ml 1650 ml # Bowel Movements 4 3 Laboratory Tests Test 03/31/20 23:16 04/01/20 03:30 04/01/20 05:29 04/01/20 11:00 POC Whole Blood Glucose 149 MG/DL (74-106) H 150 MG/DL (74-106) H White Blood Count 21.4 K/UL (4.8-10.8) H Red Blood Count 2.93 M/UL (4.20-5.40) L Hemoglobin 8.2 G/DL (12.0-16.0) L Hematocrit 23.4 % (37.0-47.0) L Mean Corpuscular Volume 80 FL (80-99) Mean Corpuscular Hemoglobin 28.0 PG (27.0-31.0) Mean Corpuscular Hemoglobin Concent 35.0 G/DL (32.0-36.0) Red Cell Distribution Width 19.3 % (11.6-14.8) H Platelet Count 407 K/UL (150-450) Mean Platelet Volume 6.4 FL (6.5-10.1) L Neutrophils (%) (Auto) % (45.0-75.0) Lymphocytes (%) (Auto) % (20.0-45.0) Monocytes (%) (Auto) % (1.0-10.0) Eosinophils (%) (Auto) % (0.0-3.0) Basophils (%) (Auto) % (0.0-2.0) Differential Total Cells Counted 100 Neutrophils % (Manual) 80 % (45-75) H Lymphocytes % (Manual) 6 % (20-45) L Monocytes % (Manual) 8 % (1-10) Eosinophils % (Manual) 6 % (0-3) H Basophils % (Manual) 0 % (0-2) Band Neutrophils 0 % (0-8) Nucleated Red Blood Cells 2 /100 WBC Platelet Estimate Adequate Platelet Morphology Normal Polychromasia 1+ Hypochromasia 1+ Anisocytosis 2+ Erythrocyte Sedimentation Rate 125 MM/HR (0-30) H Sodium Level 141 MMOL/L (136-145) Potassium Level 5.2 MMOL/L (3.5-5.1) H Chloride Level 107 MMOL/L (98-107) Carbon Dioxide Level 28 MMOL/L (21-32) Anion Gap 6 mmol/L (5-15) Blood Urea Nitrogen 67 mg/dL (7-18) H Creatinine 1.5 MG/DL (0.55-1.30) H Estimat Glomerular Filtration Rate 41.3 mL/min (>60) Glucose Level 152 MG/DL (74-106) H Calcium Level 9.0 MG/DL (8.5-10.1) Phosphorus Level 5.0 MG/DL (2.5-4.9) H Magnesium Level 2.9 MG/DL (1.8-2.4) H Total Bilirubin 0.3 MG/DL (0.2-1.0) Aspartate Amino Transf (AST/SGOT) 18 U/L (15-37) Alanine Aminotransferase (ALT/SGPT) 22 U/L (12-78) Alkaline Phosphatase 85 U/L (46-116) C-Reactive Protein, Quantitative 27.3 mg/dL (0.00-0.90) H Total Protein 7.2 G/DL (6.4-8.2) Albumin 1.4 G/DL (3.4-5.0) L Globulin 5.8 g/dL Albumin/Globulin Ratio 0.2 (1.0-2.7) L Urine Random Sodium 49 mmol/L (20-110) Test 04/01/20 11:32 04/01/20 17:42 POC Whole Blood Glucose 105 MG/DL (74-106) 146 MG/DL (74-106) H Objective HEAD AND NECK: No JVD. LUNGS: Coarse rhonchi. Status post tracheostomy. CARDIOVASCULAR: Regular S1 and S2 with no gallop or rub. Status post PEG. EXTREMITIES: 1+ pitting edema with sacral decubitus. Shay Alejandre MD Apr 01, 2020 18:22
--- NOTE | 2020-04-01 19:30 | NUR ---
NURSE NOTES: received pt from Rupesh HEAD., pt is awake and AO x0, obtunded. pt has vent, no SOB noted. O2sat is at 100%. pt is warm to touch. G tube site is intact, clean, and patent. Glucerna 1.2 is running at 70ccml/hr. just changed Feeding for the pt. no BM noted at this time. no active bleeding noted at this time. dominique cath is noted, draining well with gravity. left FA 20g and left wrist 22G IV sites are intact, clean, and patent. call light within reach. will continue to monitor pt with plan of care. bed at the lowest position, alarmed, and locked.
[2020-04-01 20:00] VITALS: BP 128/70
--- NOTE | 2020-04-01 20:27 | NUR ---
NURSE NOTES: according to Rupesh HEAD., pt's one episode of PSVT [address] Lutz today at 1930. noted
--- NOTE | 2020-04-01 23:05 | Surgery Progress Note ---
Surgery Progress Note Subjective Additional Comments no acute distress Objective Last 24 Hour Vital Signs Date Time Temp Pulse Resp B/P (MAP) Pulse Ox O2 Delivery O2 Flow Rate FiO2 04/01/20 22:14 116 133/75 04/01/20 20:00 35 04/01/20 20:00 Mechanical Ventilator 04/01/20 20:00 98.5 112 22 128/70 (89) 100 04/01/20 19:39 104 27 35 04/01/20 19:22 112 04/01/20 16:29 97.2 106 25 106/63 (77) 100 04/01/20 16:00 Mechanical Ventilator 04/01/20 16:00 35 04/01/20 15:47 107 24 35 04/01/20 14:17 134 121/67 04/01/20 12:31 134 04/01/20 12:00 110 04/01/20 12:00 35 04/01/20 12:00 99.1 100 24 121/67 (85) 100 04/01/20 12:00 Mechanical Ventilator 04/01/20 10:30 112 23 35 04/01/20 08:00 Mechanical Ventilator 04/01/20 08:00 35 04/01/20 08:00 111 04/01/20 07:52 98.2 109 20 124/75 (91) 100 04/01/20 07:05 105 18 35 04/01/20 05:41 115 106/59 04/01/20 04:17 35 04/01/20 04:17 97.9 111 20 96/53 (67) 100 04/01/20 04:15 Mechanical Ventilator 04/01/20 04:00 115 04/01/20 03:39 110 25 35 04/01/20 00:02 Mechanical Ventilator 04/01/20 00:00 35 04/01/20 00:00 100 03/31/20 23:26 100.2 105 20 90/56 (67) 100 I&O Intake and Output 03/31/20 04/01/20 19:00 07:00 Intake Total 1557.416 ml 1140 ml Output Total 1750 ml 1650 ml Balance -192.584 ml -510 ml Free Water 50 ml 300 ml IV Total 667.416 ml Tube Feeding 840 ml 840 ml Output Urine Total 1750 ml 1650 ml # Bowel Movements 4 3 Dressing: saturated Cardiovascular: RSR Respiratory: decreased breath sounds Abdomen: non-tender, present bowel sounds Extremities: no edema, no tenderness, no cyanosis Laboratory Tests Test 03/31/20 23:16 04/01/20 03:30 04/01/20 05:29 04/01/20 11:00 POC Whole Blood Glucose 149 MG/DL (74-106) H 150 MG/DL (74-106) H White Blood Count 21.4 K/UL (4.8-10.8) H Red Blood Count 2.93 M/UL (4.20-5.40) L Hemoglobin 8.2 G/DL (12.0-16.0) L Hematocrit 23.4 % (37.0-47.0) L Mean Corpuscular Volume 80 FL (80-99) Mean Corpuscular Hemoglobin 28.0 PG (27.0-31.0) Mean Corpuscular Hemoglobin Concent 35.0 G/DL (32.0-36.0) Red Cell Distribution Width 19.3 % (11.6-14.8) H Platelet Count 407 K/UL (150-450) Mean Platelet Volume 6.4 FL (6.5-10.1) L Neutrophils (%) (Auto) % (45.0-75.0) Lymphocytes (%) (Auto) % (20.0-45.0) Monocytes (%) (Auto) % (1.0-10.0) Eosinophils (%) (Auto) % (0.0-3.0) Basophils (%) (Auto) % (0.0-2.0) Differential Total Cells Counted 100 Neutrophils % (Manual) 80 % (45-75) H Lymphocytes % (Manual) 6 % (20-45) L Monocytes % (Manual) 8 % (1-10) Eosinophils % (Manual) 6 % (0-3) H Basophils % (Manual) 0 % (0-2) Band Neutrophils 0 % (0-8) Nucleated Red Blood Cells 2 /100 WBC Platelet Estimate Adequate Platelet Morphology Normal Polychromasia 1+ Hypochromasia 1+ Anisocytosis 2+ Erythrocyte Sedimentation Rate 125 MM/HR (0-30) H Sodium Level 141 MMOL/L (136-145) Potassium Level 5.2 MMOL/L (3.5-5.1) H Chloride Level 107 MMOL/L (98-107) Carbon Dioxide Level 28 MMOL/L (21-32) Anion Gap 6 mmol/L (5-15) Blood Urea Nitrogen 67 mg/dL (7-18) H Creatinine 1.5 MG/DL (0.55-1.30) H Estimat Glomerular Filtration Rate 41.3 mL/min (>60) Glucose Level 152 MG/DL (74-106) H Calcium Level 9.0 MG/DL (8.5-10.1) Phosphorus Level 5.0 MG/DL (2.5-4.9) H Magnesium Level 2.9 MG/DL (1.8-2.4) H Total Bilirubin 0.3 MG/DL (0.2-1.0) Aspartate Amino Transf (AST/SGOT) 18 U/L (15-37) Alanine Aminotransferase (ALT/SGPT) 22 U/L (12-78) Alkaline Phosphatase 85 U/L (46-116) C-Reactive Protein, Quantitative 27.3 mg/dL (0.00-0.90) H Total Protein 7.2 G/DL (6.4-8.2) Albumin 1.4 G/DL (3.4-5.0) L Globulin 5.8 g/dL Albumin/Globulin Ratio 0.2 (1.0-2.7) L Urine Random Sodium 49 mmol/L (20-110) Test 04/01/20 11:32 04/01/20 17:42 04/01/20 21:30 POC Whole Blood Glucose 105 MG/DL (74-106) 146 MG/DL (74-106) H Vancomycin Level Trough 13.8 ug/mL (5.0-12.0) H Plan Problems: (1) Hypernatremia (2) Sepsis (3) UTI (urinary tract infection) (4) Stage 4 decubitus ulcer Assessment & Plan: Pt presented with trach,contractures, multiple Pressure injuries in various stages.Skin assessed under collar of trach and no skin breakdown evident. Full thickness Sacral Pressure injury with undermining clockwise 6-9o'clock.Wound is irregular shaped.Base of wound is 95% granular,5% slough at undermined borders.Small area of bone exposure noted at base of wound. Small amt serosanguineous exudate noted. No odor noted. An area of slough noted along borders. Edges are otherwise adherent and flat to base of wound with surrounding dry, darker skin tone.(L)11.2cm x (W)-8.7cm x(D)1.6cm ,undermining clockwise 6-9o'clock by 1.8cm @8o'clock. Partial thickness Pressure injury noted to R ischium. Base of wound is moist ,viable with surrounding shearing and non-blanchable erythema.(L)6.5cm x (W)4.5cm. Partial thickness Pressure injury L Ischium(L)1.2cm x (W)1.5cm. Base of wound is moist and viable with surrounding non-blanchable erythema with additional shearing. Resolving Pressure Injury medial L Knee. Base of wound is pink and dry . Resolving Pressure injury medial R knee. Dry pink epithelial with scattered moist, granular areas within base of wound.No odor or exudate noted.(L)4.3cm x (W)2.6cm. DTPI L lateral Malleolus(L)2.5cm x (W)3.5cm.Base of Pressure injury is indurated and maroon in colour. Non-Blanchable erythema periwound. DTPI L achilles extending into Plantar aspect of L heel(L)9.7cm x (W)10.4cm. Base of Pressure injury is black at achilles area with scattered purpuric areas, and is otherwise maroon and indurated. Resolving Pressure injury medial R Malleolus. [place] epithelial at base of wound. Stable dry eschar noted to R Hallux (L)1.2cm x (W01.3cm. Periwound skin tone is darker without erythema or induration. Tx.Plan: Cleanse Sacral wound with Saline. Loosely pack with Therahoney impregnated Kerlix(Attention to undermined area). Apply Moisture Barrier Periwound. Cover with Optifoam drsg. Change Daily and prn. Apply Moisture Barrier Paste to R and L Ischial wounds. Cover each site with Optifoam drsg. Change every 3 days and prn. Apply Cavilon Skin Barrier to medial aspects of R and L Knee. Cover each wound with Optifoam drsg.Change every 7 days and prn. Apply Cavilon Skin Barrier to R Hallux, R Heel, R and L Malleoli, and Both heels. Cover each affected area with Optifoam drsgs. Change drsgs every 7 days and prn. Reposition at least every 2 [address] tolerated[address] Pillow between Knees. Off-load heels with Pillow. CT noted. osteo in sacrum cont abx osteo chronic will monitor and asses if debridement needed ABDOMEN: Liver: Unremarkable. No mass. Gallbladder and bile ducts: Unremarkable. No calcified stones. No ductal dilation. Pancreas: Unremarkable. No mass. No ductal dilation. Spleen: Spleen is small. Adrenals: Unremarkable. No mass. Kidneys and ureters: Renal cysts and subcentimeter low-attenuation foci, too small to characterize. No hydronephrosis. Stomach and bowel: Unremarkable. No obstruction. No mucosal thickening. PELVIS: Appendix: No findings to suggest acute appendicitis. Bladder: Bladder wall thickening. Foci of gas in the bladder. Correlate for recent instrumentation versus cystitis. Reproductive: Unremarkable as visualized. ABDOMEN and PELVIS: Intraperitoneal space: Unremarkable. No free air. No significant fluid collection. Bones/joints: Sacrococcygeal decubitus ulcers with associated osteomyelitis. There is some underlying bone thinning and sclerosis in the distal sacrum and coccyx underlying the decubitus ulcers. No acute fracture. No dislocation. Soft tissues: Unremarkable. Vasculature: Moderate plaque abdominal aorta and branches. No abdominal aortic aneurysm. Lymph nodes: Unremarkable. No enlarged lymph nodes. Tubes, lines and devices: Gastrostomy tube within the gastric body. IMPRESSION: 1. Sacrococcygeal decubitus ulcers with associated osteomyelitis. 2. Small left pleural effusion. Left lower lobe atelectasis. 3. Bladder wall thickening. Foci of gas in the bladder. Correlate for recent instrumentation versus cystitis. DAILY ESTIMATED NEEDS: Needs based on Advanced wound, critical care, underweight, WORKERS COMPENSATION PARALEGAL TF/ 45.5kg 30-40 kcals/kg 5016-9019 total kcals 1.5-2 g protein/kg 68-91 g total protein 30-40 mL/kg 2385-5869 total fluid mLs NUTRITION DIAGNOSIS: Increased kcal/prot needs R/T underweight status, wound healing as evidenced by pt @83% IBW w/ underweight BMI of 17.2, admitted w/ multiple wounds, including stage 4 sacral wound. CURRENT TF:Glucerna 1.2 @ 45ml/hr x 24 hrs ENTERAL NUTRITION RECOMMENDATIONS: Glucerna 1.2 @ 60ml/hr x 24 hrs to provide 1440ml, 1728kcal, 86g prot, 1159ml free water * Increase goal rate to 60ml/hr x 24 hrs to meet 100% est kcal/prot needs -> 1.9g prot/kg * HOB over 30 degrees/ water flush per MD * add Shen BID ADDITIONAL RECOMMENDATIONS: * Per SNF: HT=64" and HB=914# vs EMR wt of 147lbs -> rec daily calibrated bedscale wt * Wound healing: TF rec @ goal will provide 100% RDI Vit C 500mg BID, ZnSO4 220gm QD x 10 days Shen BID via PEG * Monitor BGs, consider NISS: h/o DM * Monitor lytes, replete as needed (5) Chronic respiratory failure requiring continuous mechanical ventilation through tracheostomy (6) History of intracranial hemorrhage (7) Idiopathic obstructive hydrocephalus (8) Gout (9) Diabetes mellitus (10) Parkinson's disease dementia (11) Acute on chronic respiratory failure (12) Chronic vegetative state (13) Severe protein-calorie malnutrition Assessment & Plan: DAILY ESTIMATED NEEDS: Needs based on Advanced wound, critical care, underweight, WORKERS COMPENSATION PARALEGAL TF/ 45.5kg 30-40 kcals/kg 1051-4783 total kcals 1.5-2 g protein/kg 68-91 g total protein 30-40 mL/kg 2550-2813 total fluid mLs NUTRITION DIAGNOSIS: Increased kcal/prot needs R/T underweight status, wound healing as evidenced by pt @83% IBW w/ underweight BMI of 17.2, admitted w/ multiple wounds, including stage 4 sacral wound. CURRENT TF:Glucerna 1.2 @ 60ml/hr x 24 hrs ENTERAL NUTRITION RECOMMENDATIONS: Glucerna 1.2 @ 60ml/hr x 24 hrs to provide 1440ml, 1728kcal, 86g prot, 1159ml free water * Maintain current TF rate as tolerated to meet 100% est kcal/prot needs -> 1.9g prot/kg. * HOB over 30 degrees/ water flush per MD * add Shen BID ADDITIONAL RECOMMENDATIONS: * Per SNF: HT=64" and JJ=847# vs EMR wt of 147lbs -> Recalibrate bed scale for accurate CBW * Wound healing: TF rec @ goal will provide 100% RDI add Vit C 500mg BID, continue ZnSO4 220gm QD x 10 days Shen BID via PEG * Monitor BGs, consider NISS: h/o DM -> NISS now added * Increase water flushes for elevated Na (14) Hypercalcemia (15) Staphylococcus aureus bacteremia Assessment & Plan: unlikely related to wound checking often to ensure not worsening good local care being provided cont abx There is bilateral mostly upper lobe centrilobular emphysema. Mosaic attenuation pattern is seen throughout the bilateral upper lobes. There is consolidation and atelectasis of most of the left lower lobe. A few groundglass opacities are seen in the inferior left upper lobe. There is some compressive atelectasis at the right lung base with elevation of the right hemidiaphragm. There is a subpleural 8 mm nodular opacity in the right middle lobe. On recent abdomen pelvis CT scan, this demonstrated a cavity. The cavity is not evident currently There is a tracheostomy. The pleural spaces are clear. The heart size is normal. No pericardial effusion. No mediastinal or hilar mass or adenopathy. The ascending thoracic aorta is mildly ectatic, measuring up to 3.8 cm in diameter. The included portion of the thyroid is unremarkable. No axillary or chest wall mass or adenopathy demonstrated. There is smooth thoracic kyphosis without focal compression abnormality. The bones are unremarkable. Included upper abdominal anatomy demonstrates contrast in the colon from prior CT of the abdomen. There is a upper pole right renal cyst Impression: Centrilobular emphysema seen throughout both lungs with with an upper lobe predominance, indicating extensive COPD changes Mosaic attenuation pattern in the upper lobes probably related to COPD, although this is a nonspecific finding Dense consolidation and atelectasis of much of the left lower lobe. This could represent pneumonia. Groundglass opacities in the inferior left upper lobe. These could represent areas of acute inflammation, or could represent post inflammatory changes. 8mm nodule in the right middle lobe, also described on prior CT scan. This previously demonstrated a cavity. Cavitation currently not evident. Differential considerations include neoplasm, acute or chronic inflammatory lesion. Recommend at a minimum follow-up CT scan in 6 months Tracheostomy Kyphosis Right upper pole renal cyst Chris Hunter Apr 01, 2020 23:05
[2020-04-02] VITALS: BP 112/65
--- NOTE | 2020-04-02 03:37 | NUR ---
NURSE NOTES: repositioned Q 2hrs. oral care given, provided new gown and new blankets. BM noted. call light within reach. will continue to monitor pt.
[2020-04-02 04:00] VITALS: BP 125/70
[2020-04-02] MEDS: NovoLOG Insulin Flexpen SUBQ SCH ×3 (05:28→17:06)
[2020-04-02] MEDS: dilTIAZem HCl 30mg tab GT SCH ×3 (05:40→22:24)
[2020-04-02 05:52] LABS: HEMATOCRIT 23.9 % (37.0-47.0); MEAN CORPUSCULAR VOLUME 81 FL (80-99); PLATELET COUNT 479 K/UL (150-450); RED BLOOD COUNT 2.96 M/UL (4.20-5.40); RED CELL DISTRIBUTION WIDTH 19.7 % (11.6-14.8)
[2020-04-02 06:11] LABS: APPEARANCE,URINE SLIGHTLY CLOUDY; BILIRUBIN, URINE NEGATIVE (NEGATIVE); COLOR,URINE PALE YELLOW; GLUCOSE, URINE (UA) NEGATIVE (NEGATIVE); KETONES,URINE NEGATIVE (NEGATIVE); LEUKOCYTE ESTERASE ,URINE 3+ (NEGATIVE); NITRITE,URINE NEGATIVE (NEGATIVE); PH,URINE 8 (4.5-8.0); PROTEIN,URINE 2+ (NEGATIVE); UROBILINOGEN,URINE NORMAL MG/DL (0.0-1.0)
[2020-04-02 06:29] LABS: ALANINE AMINOTRANSFERASE 25 U/L (12-78); ALBUMIN 1.7 G/DL (3.4-5.0); ALBUMIN/GLOBULIN RATIO 0.3 (1.0-2.7); ALKALINE PHOSPHATASE 88 U/L (46-116); ANION GAP 5 mmol/L (5-15); ASPARTATE AMINO TRANSFERASE 28 U/L (15-37); BILIRUBIN,TOTAL 0.2 MG/DL (0.2-1.0); BLOOD UREA NITROGEN 43 mg/dL (7-18); CALCIUM 9.7 MG/DL (8.5-10.1); CARBON DIOXIDE 31 MMOL/L (21-32); CHLORIDE 112 MMOL/L (98-107); CREATININE 0.9 MG/DL (0.55-1.30); PHOSPHORUS 3.5 MG/DL (2.5-4.9); SODIUM 148 MMOL/L (136-145)
[2020-04-02 06:36] LABS: WHITE BLOOD COUNT 22.6 K/UL (4.8-10.8)
--- NOTE | 2020-04-02 06:50 | NUR ---
NURSE NOTES: left voice mail to Daenne Zhang, regarding bloody stool noted. will wait for call satnam.
--- NOTE | 2020-04-02 07:00 | NUR ---
NURSE HAND-OFF REPORT: Important Events on Shift:[bloody BM, UA pending, sputum needs to collect, blood pending, critical WBC] Patient Status: [stable] Diet: [glucerna 1.2 @ 70cc] Pending Orders: [n/a] Pending Results/Labs:[blood, UA] Pending MD notification:[WBC Dr. Sharp, and blood in BM Dr. Rivera] Latest Vital Signs: Temperature 98.6 , Pulse 118 , B/P 129 /77 , Respiratory Rate 22 , O2 SAT 100 , Mechanical Ventilator, O2 Flow Rate . Vital Sign Comment: [stable] EKG Rhythm: Sinus Tachycardia Rhythm change?: N Notified?: N Response: Latest Ochoa Fall Score: 70 Fall Risk: High Risk Safety Measures: Call light Within Reach, Bed Alarm Zone 1, Side Rails Side Rails x3, Bed position Low and Locked. Fall Precautions: Yellow Socks Yellow Gown Door Sign Patient Fall Education Report given to [Nathalie RN].
--- NOTE | 2020-04-02 07:10 | NUR ---
NURSE NOTES: Received report from ADILENE Mae. Patient is on bed, no signs of grimacing and distress noted. Patient is on trache-vent P7 with settings of AC 16, Vt 400, FiO2 25%, PEEP of 5, tolerating well. Patient has a GT, patent, intact, with Glucerna 1.2 running 70 cc/hr, tolerating well. On Collier catheter, patent, intact, draining yellow urine. Patient has a L FA 20 g and L wrist 22 g, patent, saline locked. HOB elevated, bed on lowest position, side rails up, and locked. patient will continue to be monitored.
[2020-04-02 08:00] VITALS: BP 119/67
[2020-04-02] MEDS: Zinc Sulfate 220mg ORAL SCH (08:16)
[2020-04-02] MEDS: Ascorbic Acid 500mg tab ORAL SCH (08:16)
--- NOTE | 2020-04-02 08:28 | General Progress Note ---
Subjective ROS Limited/Unobtainable: No Allergies: Coded Allergies: No Known Allergies (Unverified , 03/11/20) Objective Last 24 Hour Vital Signs Date Time Temp Pulse Resp B/P (MAP) Pulse Ox O2 Delivery O2 Flow Rate FiO2 04/02/20 08:00 35 04/02/20 05:40 118 129/77 04/02/20 04:00 Mechanical Ventilator 04/02/20 04:00 116 04/02/20 04:00 35 04/02/20 04:00 98.6 118 22 125/70 (88) 100 04/02/20 03:00 111 23 35 04/02/20 00:00 Mechanical Ventilator 04/02/20 00:00 120 04/02/20 00:00 98.0 102 22 112/65 (81) 100 04/02/20 00:00 35 04/01/20 22:50 110 22 35 04/01/20 22:14 116 133/75 04/01/20 20:00 35 04/01/20 20:00 Mechanical Ventilator 04/01/20 20:00 98.5 112 22 128/70 (89) 100 04/01/20 19:39 104 27 35 04/01/20 19:22 112 04/01/20 16:29 97.2 106 25 106/63 (77) 100 04/01/20 16:00 Mechanical Ventilator 04/01/20 16:00 35 04/01/20 15:47 107 24 35 04/01/20 14:17 134 121/67 04/01/20 12:31 134 04/01/20 12:00 110 04/01/20 12:00 35 04/01/20 12:00 99.1 100 24 121/67 (85) 100 04/01/20 12:00 Mechanical Ventilator 04/01/20 10:30 112 23 35 Intake and Output 04/01/20 04/02/20 19:00 07:00 Intake Total 820 ml 1040 ml Output Total 1880 ml 1800 ml Balance -1060 ml -760 ml Free Water 120 ml 90 ml IV Total 110 ml Tube Feeding 700 ml 840 ml Output Urine Total 1850 ml 1800 ml Stool Total 30 ml # Voids 1 # Bowel Movements 4 7 Laboratory Tests 04/01/20 11:00: Urine Random Sodium 49 04/01/20 11:32: POC Whole Blood Glucose 105 04/01/20 17:42: POC Whole Blood Glucose 146H 04/01/20 21:30: Vancomycin Level Trough 13.8H 04/01/20 23:28: POC Whole Blood Glucose [Pending] 04/02/20 03:23: White Blood Count 22.6*H, Red Blood Count 2.96L, Hemoglobin 8.0L, Hematocrit 23.9L, Mean Corpuscular Volume 81, Mean Corpuscular Hemoglobin 27.1, Mean Corpuscular Hemoglobin Concent 33.6, Red Cell Distribution Width 19.7H, Platelet Count 479H, Mean Platelet Volume 6.6, Neutrophils (%) (Auto) , Lymphocytes (%) (Auto) , Monocytes (%) (Auto) , Eosinophils (%) (Auto) , Basophils (%) (Auto) , Neutrophils % (Manual) [Pending], Lymphocytes % (Manual) [Pending], Platelet Estimate [Pending], Platelet Morphology [Pending], Sodium Level 148H, Potassium Level 5.0, Chloride Level 112H, Carbon Dioxide Level 31, Anion Gap 5, Blood Urea Nitrogen 43H, Creatinine 0.9, Estimat Glomerular Filtration Rate > 60, Glucose Level 119H, Uric Acid 4.8, Calcium Level 9.7, Phosphorus Level 3.5, Magnesium Level 2.4, Total Bilirubin 0.2, Aspartate Amino Transf (AST/SGOT) 28, Alanine Aminotransferase (ALT/SGPT) 25, Alkaline Phosphatase 88, C-Reactive Protein, Quantitative 25.8H, Total Protein 7.9, Albumin 1.7L, Globulin 6.2, Albumin/Globulin Ratio 0.3L 04/02/20 04:00: Urine Color Pale yellow, Urine Appearance Slightly cloudy, Urine pH 8, Urine Specific [place] 1.010, Urine Protein 2+H, Urine Glucose (UA) Negative, Urine Ketones Negative, Urine Blood 3+H, Urine Nitrite Negative, Urine Bilirubin Negative, Urine Urobilinogen Normal, Urine Leukocyte Esterase 3+H, Urine RBC 5- 10H, Urine WBC 20-30H, Urine Squamous Epithelial Cells Few, Urine Bacteria Few, Urine Yeast FewH 04/02/20 05:27: POC Whole Blood Glucose [Pending] 04/02/20 07:18: Arterial Blood pH 7.445, Arterial Blood Partial Pressure CO2 44.2, Arterial Blood Partial Pressure O2 120.5H, Arterial Blood HCO3 29.7H, Arterial Blood Oxygen Saturation 98.2, Arterial Blood Base Excess 5.1H, Mukul Test Positive Height (Feet): 5 Height (Inches): 5.00 Weight (Pounds): 147 General Appearance: no apparent distress EENT: PERRL/EOMI Neck: supple Cardiovascular: normal rate Respiratory/Chest: decreased breath sounds Abdomen: normal bowel sounds, non tender, soft Extremities: non-tender Assessment/Plan Assessment/Plan: Assessment/Plan Assessment/Plan: Assessment History of intracranial hemorrhage, s/p gastrostomy, OB (+) stools status post tracheostomy, chronic obstructive pulmonary disease, type 2 diabetes, Parkinson's, gout, glaucoma, history of stage IV sacral decubitus ulceration, gout Fever Low albumin Recommendations - continue TF - GT care - elevate HOB - Monitor H&H - no GI w/u per family decision - re check albumin and prealbumin periodically Elias Easley MD Apr 02, 2020 08:28
[2020-04-02] MEDS: Acetaminophen 650mg/20.3ml GT PRN ×3 (09:39→16:28)
[2020-04-02] MEDS ORDERED: D5W 1000ml 500 ML IV SCH (10:00)
--- NOTE | 2020-04-02 10:23 | Pulmonolgy Critical Care Note ---
Critical Care - Asmt/Plan Assessment/Plan: ASSESSMENT Acute on chronic respiratory failure Sepsis with MRSA bacteremia Probably pneumonia Persistent leukocytosis Ventilator dependent respiratory failure, tracheostomy status COPD Dysphagia , feeding by G-tube History of ICH DM HTN E/lyte abnormalities Severe protein calorie malnutrition Sacral decubitus ulcer , stage IV-present on admission Anemia Dementia Chronic vegetative state PLAN OF CARE SHIMON vent support, pulmonary toilet trach care baseline ABG stable on current settings, keep as is and titrate as needed ABG trhis am stable on current settings, keep settings as is and titrate as needed CXR for this am pending abx as per ID recs-> Vanco x 6 wks since no DEBBIE will be done as family declined initial BCX + MRSA. repeated BCX NGT ECHO with pEF 65 to 70% , no evidence of vegetation , right ventricular systolic pressure of 40 consistent with mild pulmonary hypertension family declined DEBBIE indium scan ->NGT leuk worse, will check SCX, CXR , although per ID sacral decub is the most proba ble cause of leukocytosis DVT prophylaxis aspiration precaution G-tube feeding TF formula, goal rate and protein supplement as per RD recs BS management with SSI monitor renal parameters, avoid nephrotoxics Hyper Ca resolved , s/p Aredia, s/p calcitonin fup with further nephro recs monitor HH with goal to keep Hgb > 7 wound care as per surgeon recommendation supportive care case discussed and evaluated by supervising physician Critical Care - Objective Last 24 Hour Vital Signs Date Time Temp Pulse Resp B/P (MAP) Pulse Ox O2 Delivery O2 Flow Rate FiO2 04/02/20 08:00 Mechanical Ventilator 04/02/20 08:00 120 04/02/20 08:00 35 04/02/20 08:00 101.4 122 36 119/67 (84) 99 04/02/20 05:40 118 129/77 04/02/20 04:00 Mechanical Ventilator 04/02/20 04:00 116 04/02/20 04:00 35 04/02/20 04:00 98.6 118 22 125/70 (88) 100 04/02/20 03:00 111 23 35 04/02/20 00:00 Mechanical Ventilator 04/02/20 00:00 120 04/02/20 00:00 98.0 102 22 112/65 (81) 100 04/02/20 00:00 35 04/01/20 22:50 110 22 35 04/01/20 22:14 116 133/75 04/01/20 20:00 35 04/01/20 20:00 Mechanical Ventilator 04/01/20 20:00 98.5 112 22 128/70 (89) 100 04/01/20 19:39 104 27 35 04/01/20 19:22 112 04/01/20 16:29 97.2 106 25 106/63 (77) 100 04/01/20 16:00 Mechanical Ventilator 04/01/20 16:00 35 04/01/20 15:47 107 24 35 04/01/20 14:17 134 121/67 04/01/20 12:31 134 04/01/20 12:00 110 04/01/20 12:00 35 04/01/20 12:00 99.1 100 24 121/67 (85) 100 04/01/20 12:00 Mechanical Ventilator 04/01/20 10:30 112 23 35 Objective: General Appearance: no acute distress, chronically ill looking, bedridden,cachetic, not responsive, vent dependent female on vent AC 400-16-35% PEEP5 HEENT: normocephalic, anicteric, status post trach - Portex # 7, secretions large amount, white color, thin consistency Respiratory: no respiratory distress, few scattered rhonchi Cardiovascular: ST Abdomen: normal bowel sounds, soft, non tender, G tube Extremities: no edema, pedal pulses normal Neurologic: abnormal gait, lethargic, Musculoskeletal: atrophy - BLE Accucheck: 138 Critical Care - Subjective ROS Limited/Unobtainable: Yes Interval Events: fever this am, leukocytosis with small tend up no signs of resp distress on current settings ABG this am stable on current settings Condition: critical EKG Rhythm: Sinus Tachycardia FI02: 35 Vent Support Breath Rate: 16 Vent Support Mode: AC Vent Tidal Volume: 400 Sputum Amount: Moderate PEEP: 5.0 PIP: 16 Tube Feeding Amount: 70 I&O: Intake and Output 04/01/20 04/02/20 19:00 07:00 Intake Total 820 ml 1040 ml Output Total 1880 ml 1800 ml Balance -1060 ml -760 ml Free Water 120 ml 90 ml IV Total 110 ml Tube Feeding 700 ml 840 ml Output Urine Total 1850 ml 1800 ml Stool Total 30 ml # Voids 1 # Bowel Movements 4 7 CXR: 03/25 1. Decreased left pleural effusion. Patchy opacity in the left lower lung may represent atelectasis versus pneumonia. 2. Asymmetric lucency in the right lung may be secondary to artifact from patient rotation. Isabel Polo NP Apr 02, 2020 10:23
--- NOTE | 2020-04-02 11:12 | Diagnostic Imaging Report ---
EXAM: XR Chest, 1 View CLINICAL HISTORY: SOB TECHNIQUE: Frontal view of the chest. COMPARISON: Chest radiograph on 03/25/2020 FINDINGS: Hardware: None. Lungs/pleura: Similar mild elevation of the left hemidiaphragm. Mildly prominent lung markings may represent pulmonary vasculature congestion. Trace left pleural effusion and atelectasis is not excluded. Heart/mediastinum: Atherosclerotic calcifications of the aorta. No cardiomegaly. Soft tissues: Unremarkable. Bones: No acute fracture. Upper abdomen: Normal. IMPRESSION: Mildly prominent lung markings may represent pulmonary vasculature congestion. Trace left pleural effusion and atelectasis is not excluded.
--- NOTE | 2020-04-02 11:32 | Nephrology Progress Note ---
Assessment/Plan Problem List: (1) Hypercalcemia (2) Hypernatremia (3) Sepsis (4) UTI (urinary tract infection) (5) Stage 4 decubitus ulcer (6) Acute on chronic respiratory failure (7) Chronic vegetative state (8) Severe protein-calorie malnutrition Assessment Azotemia and hypernatremia indicative of severe dehydration and free water deficit Acute on chronic respiratory failure, on mechanical ventilation Severe underlying anemia Sepsis Stage IV decubitus Idiopathic obstructive hydrocephalus, history of intracranial hemorrhage Diabetes mellitus Parkinson's disease, dementia Protein calorie malnutrition Plan April 02: Labs reviewed. Serum creatinine normalized. Electrolytes within normal limit. Continue per current management. Patient remains full code. April 01: Labs reviewed. Serum creatinine up to 1.5 and potassium 5.2. Patient had episodes of hypotension. Will give fluid challenge. Continue to monitor renal parameters. Urine studies ordered. March 31: No labs done today. Remains full code. Trach and vent. Continue per consultants. March 30: Labs reviewed. Trach to vent. Remains full code. Labs reviewed. Renal parameters stable. March 29: Labs reviewed. Renal parameters stable. Continue per consultants. March 28: Labs reviewed. Stable from renal standpoint of view. March 27: Medication list reviewed. Labs reviewed. Stable from renal standpoint of view. March 26: Patient remains stable from renal standpoint of view. Labs and medication list reviewed. March 25: Labs reviewed. Renal parameters stable. Continue per consultants. March 24: Labs reviewed. Renal parameters stable. Continue per consultants. March 23: Labs reviewed. Renal parameters are stable. Continue per consultants. March 22: Labs reviewed. Serum sodium 151. D5W IV given. Continue per consultants. March 21: Labs reviewed. Renal parameters stable. Continue per consultants. March 20: Labs reviewed. Serum sodium lower 147. Serum calcium stable. Continue as is. March 19: Labs reviewed. Serum sodium unchanged at 150. Another liter of D5W ordered. Serum calcium stable. Continue as is. March 18: Labs reviewed. Serum sodium 150. 1 L of D5W IV ordered. Serum calcium stable. Continue as is. March 17: Labs reviewed. Renal parameters stable. Continue to watch serum calcium. Continue per consultants. March 16: Labs reviewed. Serum calcium stable. Medication list reviewed. Abnormal electrolyte addressed. Continue current management. March 15: Labs reviewed. Serum calcium lowering. Abnormal electrolytes addressed. Continue per consultants. March 14: Labs reviewed. Status quo. Serum calcium lowering. Magnesium and potassium supplement ordered. Continue per current treatment plan. March 13: 1 dose of pamidronate 60 mg for high calcium IV ordered. Labs reviewed. Medication list reviewed. Electrolytes improving. Hemoglobin higher after transfusion. Nasal calcitonin initiated March 12: D5W at 75 cc an hour Monitor electrolytes Monitor hemoglobin hematocrit Gastric support Consider transfusion Continue per orders Parameters for blood pressure medication Antibiotics per ID Subjective ROS Limited/Unobtainable: Yes Objective Objective Last 24 Hour Vital Signs Date Time Temp Pulse Resp B/P (MAP) Pulse Ox O2 Delivery O2 Flow Rate FiO2 04/02/20 08:00 Mechanical Ventilator 04/02/20 08:00 120 04/02/20 08:00 35 04/02/20 08:00 101.4 122 36 119/67 (84) 99 04/02/20 07:46 121 31 35 04/02/20 05:40 118 129/77 04/02/20 04:00 Mechanical Ventilator 04/02/20 04:00 116 04/02/20 04:00 35 04/02/20 04:00 98.6 118 22 125/70 (88) 100 04/02/20 03:00 111 23 35 04/02/20 00:00 Mechanical Ventilator 04/02/20 00:00 120 04/02/20 00:00 98.0 102 22 112/65 (81) 100 04/02/20 00:00 35 04/01/20 22:50 110 22 35 04/01/20 22:14 116 133/75 04/01/20 20:00 35 04/01/20 20:00 Mechanical Ventilator 04/01/20 20:00 98.5 112 22 128/70 (89) 100 04/01/20 19:39 104 27 35 04/01/20 19:22 112 04/01/20 16:29 97.2 106 25 106/63 (77) 100 04/01/20 16:00 Mechanical Ventilator 04/01/20 16:00 35 04/01/20 15:47 107 24 35 04/01/20 14:17 134 121/67 04/01/20 12:31 134 04/01/20 12:00 110 04/01/20 12:00 35 04/01/20 12:00 99.1 100 24 121/67 (85) 100 04/01/20 12:00 Mechanical Ventilator Intake and Output 04/01/20 04/02/20 19:00 07:00 Intake Total 820 ml 1040 ml Output Total 1880 ml 1800 ml Balance -1060 ml -760 ml Free Water 120 ml 90 ml IV Total 110 ml Tube Feeding 700 ml 840 ml Output Urine Total 1850 ml 1800 ml Stool Total 30 ml # Voids 1 # Bowel Movements 4 7 In charge Current Medications Medications (Trade) Dose Ordered Sig/Zaki Route PRN Reason Start Time Stop Time Status Last Admin Dose Admin Acetaminophen (Tylenol) 650 mg Q6H PRN GT Temp >100.5, Mild Pain 03/11/20 06:30 04/10/20 06:29 04/02/20 09:39 Ascorbic Acid (Vitamin C) 500 mg DAILY ORAL 03/28/20 09:00 04/27/20 08:59 04/02/20 08:16 Calcitonin [place] (Miacalcin) 1 sprays DAILY NASAL 03/13/20 11:00 06/11/20 10:59 04/02/20 08:17 Dextrose (Dextrose 50%) 25 ml Q30M PRN IV Hypoglycemia 03/13/20 23:30 06/11/20 23:29 Dextrose (Dextrose 50%) 50 ml Q30M PRN IV Hypoglycemia 03/13/20 23:30 06/11/20 23:29 Diltiazem HCl (Cardizem Tab) 30 mg EVERY 8 HOURS GT 03/24/20 14:00 04/23/20 13:59 04/02/20 05:40 Diphenhydramine HCl (Benadryl) 25 mg Q8H PRN ORAL Itching 03/14/20 15:00 04/13/20 14:59 03/14/20 15:50 Famotidine (Pepcid) 20 mg BID GT 03/18/20 18:00 06/09/20 08:59 04/02/20 08:16 Insulin Aspart (NovoLOG) Q6HR SUBQ 03/14/20 00:00 06/12/20 00:00 04/01/20 23:32 Multivitamins (Multivitamins) 1 tab DAILY ORAL 03/28/20 09:00 04/27/20 08:59 04/02/20 08:16 Ondansetron HCl (Zofran) 4 mg Q4H PRN IVP Nausea & Vomiting 03/11/20 06:30 04/10/20 06:29 Vancomycin HCl (Vanco pharmacy to dose) 1 ea DAILY PRN MISC Per rx protocol 03/31/20 09:00 04/30/20 08:59 Vancomycin HCl 500 mg/Sodium Chloride 110 ml @ 110 mls/hr Q12H IVPB 03/31/20 23:00 04/05/20 22:59 04/01/20 22:14 Zinc Sulfate (Zinc Sulfate) 220 mg DAILY ORAL 03/28/20 09:00 04/07/20 09:00 04/02/20 08:16 Laboratory Tests 04/01/20 11:32: POC Whole Blood Glucose 105 04/01/20 17:42: POC Whole Blood Glucose 146H 04/01/20 21:30: Vancomycin Level Trough 13.8H 04/01/20 23:28: POC Whole Blood Glucose [Pending] 04/02/20 03:23: White Blood Count 22.6*H, Red Blood Count 2.96L, Hemoglobin 8.0L, Hematocrit 23.9L, Mean Corpuscular Volume 81, Mean Corpuscular Hemoglobin 27.1, Mean Co rpuscular Hemoglobin Concent 33.6, Red Cell Distribution Width 19.7H, Platelet Count 479H, Mean Platelet Volume 6.6, Neutrophils (%) (Auto) , Lymphocytes (%) (Auto) , Monocytes (%) (Auto) , Eosinophils (%) (Auto) , Basophils (%) (Auto) , Differential Total Cells Counted 100, Neutrophils % (Manual) 85H, Lymphocytes % (Manual) 7L, Monocytes % (Manual) 4, Eosinophils % (Manual) 4H, Basophils % (Manual) 0, Band Neutrophils 0, Platelet Estimate Adequate, Platelet Morphology Normal, Hypochromasia 1+, Anisocytosis 2+, Sodium Level 148H, Potassium Level 5.0, Chloride Level 112H, Carbon Dioxide Level 31, Anion Gap 5, Blood Urea Nitrogen 43H, Creatinine 0.9, Estimat Glomerular Filtration Rate > 60, Glucose Level 119H, Uric Acid 4.8, Calcium Level 9.7, Phosphorus Level 3.5, Magnesium Level 2.4, Total Bilirubin 0.2, Aspartate Amino Transf (AST/SGOT) 28, Alanine Aminotransferase (ALT/SGPT) 25, Alkaline Phosphatase 88, C-Reactive Protein, Quantitative 25.8H, Total Protein 7.9, Albumin 1.7L, Globulin 6.2, Albumin/Globulin Ratio 0.3L 04/02/20 04:00: Urine Color Pale yellow, Urine Appearance Slightly cloudy, Urine pH 8, Urine Specific [place] 1.010, Urine Protein 2+H, Urine Glucose (UA) Negative, Urine Ketones Negative, Urine Blood 3+H, Urine Nitrite Negative, Urine Bilirubin Negative, Urine Urobilinogen Normal, Urine Leukocyte Esterase 3+H, Urine RBC 5- 10H, Urine WBC 20-30H, Urine Squamous Epithelial Cells Few, Urine Bacteria Few, Urine Yeast FewH 04/02/20 05:27: POC Whole Blood Glucose [Pending] 04/02/20 07:18: Arterial Blood pH 7.445, Arterial Blood Partial Pressure CO2 44.2, Arterial Blood Partial Pressure O2 120.5H, Arterial Blood HCO3 29.7H, Arterial Blood Oxygen Saturation 98.2, Arterial Blood Base Excess 5.1H, Mukul Test Positive Height (Feet): 5 Height (Inches): 5.00 Weight (Pounds): 147 General Appearance: no apparent distress EENT: other - trach and vent Cardiovascular: tachycardia Respiratory/Chest: decreased breath sounds Abdomen: distended Mathew Huntley MD Apr 02, 2020 11:32
[2020-04-02] MEDS: Vancomycin 500 MG in NS 110 ML IVPB SCH ×2 (11:59→22:30)
[2020-04-02 12:00] VITALS: BP 113/70
--- NOTE | 2020-04-02 14:13 | Internal Med Progress Note ---
Subjective Date of Service: Apr 02, 2020 Physician Name Piyush Barajas Attending Physician Jesus Lutz MD Current Medications Medications (Trade) Dose Ordered Sig/Zaki Route PRN Reason Start Time Stop Time Status Last Admin Dose Admin Acetaminophen (Tylenol) 650 mg Q6H PRN GT Temp >100.5, Mild Pain 03/11/20 06:30 04/10/20 06:29 04/02/20 09:39 Ascorbic Acid (Vitamin C) 500 mg DAILY ORAL 03/28/20 09:00 04/27/20 08:59 04/02/20 08:16 Calcitonin [place] (Miacalcin) 1 sprays DAILY NASAL 03/13/20 11:00 06/11/20 10:59 04/02/20 08:17 Dextrose (Dextrose 50%) 25 ml Q30M PRN IV Hypoglycemia 03/13/20 23:30 06/11/20 23:29 Dextrose (Dextrose 50%) 50 ml Q30M PRN IV Hypoglycemia 03/13/20 23:30 06/11/20 23:29 Diltiazem HCl (Cardizem Tab) 30 mg EVERY 8 HOURS GT 03/24/20 14:00 04/23/20 13:59 04/02/20 13:42 Diphenhydramine HCl (Benadryl) 25 mg Q8H PRN ORAL Itching 03/14/20 15:00 04/13/20 14:59 03/14/20 15:50 Famotidine (Pepcid) 20 mg BID GT 03/18/20 18:00 06/09/20 08:59 04/02/20 08:16 Insulin Aspart (NovoLOG) Q6HR SUBQ 03/14/20 00:00 06/12/20 00:00 04/01/20 23:32 Multivitamins (Multivitamins) 1 tab DAILY ORAL 03/28/20 09:00 04/27/20 08:59 04/02/20 08:16 Ondansetron HCl (Zofran) 4 mg Q4H PRN IVP Nausea & Vomiting 03/11/20 06:30 04/10/20 06:29 Vancomycin HCl (Vanco pharmacy to dose) 1 ea DAILY PRN MISC Per rx protocol 03/31/20 09:00 04/30/20 08:59 Vancomycin HCl 500 mg/Sodium Chloride 110 ml @ 110 mls/hr Q12H IVPB 03/31/20 23:00 04/05/20 22:59 04/02/20 11:59 Zinc Sulfate (Zinc Sulfate) 220 mg DAILY ORAL 03/28/20 09:00 04/07/20 09:00 04/02/20 08:16 Allergies: Coded Allergies: No Known Allergies (Unverified , 03/11/20) ROS Limited/Unobtainable: Yes Subjective 74 YO F trach dependent admitted with hypoxic respiratory failure. Now pneumonia and sepsis. Cover for Int Med-Dr Lutz. Step down unit. Objective Last Vital Signs Date Time Temp Pulse Resp B/P (MAP) Pulse Ox O2 Delivery O2 Flow Rate FiO2 04/02/20 13:42 110 105/62 04/02/20 12:00 Mechanical Ventilator 04/02/20 12:00 35 04/02/20 12:00 99.9 34 94 Laboratory Tests Test 04/01/20 17:42 04/01/20 21:30 04/01/20 23:28 04/02/20 03:23 POC Whole Blood Glucose 146 MG/DL (74-106) H Pending Vancomycin Level Trough 13.8 ug/mL (5.0-12.0) H White Blood Count 22.6 K/UL (4.8-10.8) *H Red Blood Count 2.96 M/UL (4.20-5.40) L Hemoglobin 8.0 G/DL (12.0-16.0) L Hematocrit 23.9 % (37.0-47.0) L Mean Corpuscular Volume 81 FL (80-99) Mean Corpuscular Hemoglobin 27.1 PG (27.0-31.0) Mean Corpuscular Hemoglobin Concent 33.6 G/DL (32.0-36.0) Red Cell Distribution Width 19.7 % (11.6-14.8) H Platelet Count 479 K/UL (150-450) H Mean Platelet Volume 6.6 FL (6.5-10.1) Neutrophils (%) (Auto) % (45.0-75.0) Lymphocytes (%) (Auto) % (20.0-45.0) Monocytes (%) (Auto) % (1.0-10.0) Eosinophils (%) (Auto) % (0.0-3.0) Basophils (%) (Auto) % (0.0-2.0) Differential Total Cells Counted 100 Neutrophils % (Manual) 85 % (45-75) H Lymphocytes % (Manual) 7 % (20-45) L Monocytes % (Manual) 4 % (1-10) Eosinophils % (Manual) 4 % (0-3) H Basophils % (Manual) 0 % (0-2) Band Neutrophils 0 % (0-8) Platelet Estimate Adequate Platelet Morphology Normal Hypochromasia 1+ Anisocytosis 2+ Sodium Level 148 MMOL/L (136-145) H Potassium Level 5.0 MMOL/L (3.5-5.1) Chloride Level 112 MMOL/L (98-107) H Carbon Dioxide Level 31 MMOL/L (21-32) Anion Gap 5 mmol/L (5-15) Blood Urea Nitrogen 43 mg/dL (7-18) H Creatinine 0.9 MG/DL (0.55-1.30) Estimat Glomerular Filtration Rate > 60 mL/min (>60) Glucose Level 119 MG/DL (74-106) H Uric Acid 4.8 MG/DL (2.6-7.2) Calcium Level 9.7 MG/DL (8.5-10.1) Phosphorus Level 3.5 MG/DL (2.5-4.9) Magnesium Level 2.4 MG/DL (1.8-2.4) Total Bilirubin 0.2 MG/DL (0.2-1.0) Aspartate Amino Transf (AST/SGOT) 28 U/L (15-37) Alanine Aminotransferase (ALT/SGPT) 25 U/L (12-78) Alkaline Phosphatase 88 U/L (46-116) C-Reactive Protein, Quantitative 25.8 mg/dL (0.00-0.90) H Total Protein 7.9 G/DL (6.4-8.2) Albumin 1.7 G/DL (3.4-5.0) L Globulin 6.2 g/dL Albumin/Globulin Ratio 0.3 (1.0-2.7) L Test 04/02/20 04:00 04/02/20 05:27 04/02/20 07:18 04/02/20 11:58 Urine Color Pale yellow Urine Appearance Slightly cloudy Urine pH 8 (4.5-8.0) Urine Specific [place] 1.010 (1.005-1.035) Urine Protein 2+ (NEGATIVE) H Urine Glucose (UA) Negative (NEGATIVE) Urine Ketones Negative (NEGATIVE) Urine Blood 3+ (NEGATIVE) H Urine Nitrite Negative (NEGATIVE) Urine Bilirubin Negative (NEGATIVE) Urine Urobilinogen Normal MG/DL (0.0-1.0) Urine Leukocyte Esterase 3+ (NEGATIVE) H Urine RBC 5-10 /HPF (0 - 2) H Urine WBC 20-30 /HPF (0 - 2) H Urine Squamous Epithelial Cells Few /LPF (NONE/OCC) Urine Bacteria Few /HPF (NONE) Urine Yeast Few /HPF (NONE) H POC Whole Blood Glucose Pending Pending Arterial Blood pH 7.445 (7.350-7.450) Arterial Blood Partial Pressure CO2 44.2 mmHg (35.0-45.0) Arterial Blood Partial Pressure O2 120.5 mmHg (75.0-100.0) H Arterial Blood HCO3 29.7 mmol/L (22.0-26.0) H Arterial Blood Oxygen Saturation 98.2 % (95-100) Arterial Blood Base Excess 5.1 (-2-2) H Mukul Test Positive Intake and Output 04/01/20 04/02/20 19:00 07:00 Intake Total 820 ml 1040 ml Output Total 1880 ml 1800 ml Balance -1060 ml -760 ml Free Water 120 ml 90 ml IV Total 110 ml Tube Feeding 700 ml 840 ml Output Urine Total 1850 ml 1800 ml Stool Total 30 ml # Voids 1 # Bowel Movements 4 7 Objective PHYSICAL EXAMINATION: GENERAL: The patient is a thin-appearing female who is intubated and nonverbal. HEENT: Eyes, pupils are equal and responsive to light and accommodation. Extraocular movements are intact. NECK: Supple without lymphadenopathy. Tracheostomy is in place. CHEST: Mech vent; Diffuse wheezes bilaterally without rhonchi. CARDIOVASCULAR: Tachycardic, regular rhythm. S1, S2 are normal without murmurs, rubs, or gallops. ABDOMEN: Soft, nontender, and nondistended. Positive bowel sounds. No evidence of hepatosplenomegaly. Currently, no rebound or guarding noted. EXTREMITIES: Negative for clubbing, cyanosis, or edema. RECTAL/GENITAL: Not performed. NEUROLOGIC: Unable to assess. chest x-ray revealed left lower lobe consolidation consistent with pneumonia Assessment/Plan Assessment/Plan ASSESSMENT: This is a 74-year-old female. 1. Left lower lobe pneumonia. 2. Respiratory failure. 3. Hypernatremia. 4. Renal failure. 5. Hypoxemia. 6. Tracheostomy dependence. 7. Chronic obstructive pulmonary disease. 8. Diabetes type 2. 9. Parkinson disease. 10. Gout. 11. Glaucoma. 12. Sacral decubitus ulcer stage IV. 13. History of intracranial hemorrhage. 14. Hydrocephalus. 15. sepsis=MRSA 16. UTI=MDR acenitobacter 17. diarrhea TREATMENT: 1. Left lower lobe pneumonia/respiratory failure/sepsis. Pulmonary consultation =Dr. Patti Matta. ABX= continue vancomycin; S/P linezolid and levaquin. S/P vanco and zosyn -see ID note Infectious disease=Dr. Villegas. We will follow recommendations of Infectious Disease and Pulmonary. 2. Hypernatremia. Hypernatremia may be secondary to renal failure versus dehydration. Nephrology consultation =. 3. Renal failure nephrology consultation =Dr. Huntley. 4. Tracheostomy dependence. 5. Chronic obstructive pulmonary disease. 6. Diabetes type 2. NovoLog sliding scale has been instituted. 7. Parkinson disease. 8. Gout. Continue allopurinol as above. 9. Glaucoma. 10. Sacral decubitus ulcer stage IV. A general surgery consultation has been obtained with Dr. Chris Hunter. 11. History of intracranial hemorrhage. 12. DEBBIE refused by patient's daughter; cardiology=Trista Alejandre and Rachel 13. Await indium scan result 14. Stool for C. Diff and cult Piyush Barajas MD Apr 02, 2020 14:13
--- NOTE | 2020-04-02 14:21 | NUR ---
NURSE NOTES: Updated Dr. Alejandre regarding patient's HR sustaining 110-125 since this morning. Awaiting for doctor's response.
--- NOTE | 2020-04-02 15:00 | NUR ---
NURSE NOTES: dr Alejandre made aware that patients Hr is St sutaining on the 110-125. Dr Alejandre ordered EKG stat, was carried out and reported. No new orders received, will continue to care.
--- NOTE | 2020-04-02 15:55 | Surgery Progress Note ---
Surgery Progress Note Subjective Additional Comments afebrile, HD Stable labs noted exam stable dressings going well Objective Last 24 Hour Vital Signs Date Time Temp Pulse Resp B/P (MAP) Pulse Ox O2 Delivery O2 Flow Rate FiO2 04/02/20 13:42 110 105/62 04/02/20 12:18 111 04/02/20 12:00 Mechanical Ventilator 04/02/20 12:00 35 04/02/20 12:00 99.9 110 34 113/70 (84) 94 04/02/20 11:56 108 25 35 04/02/20 10:09 99.9 04/02/20 08:00 Mechanical Ventilator 04/02/20 08:00 120 04/02/20 08:00 35 04/02/20 08:00 101.4 122 36 119/67 (84) 99 04/02/20 07:46 121 31 35 04/02/20 05:40 118 129/77 04/02/20 04:00 Mechanical Ventilator 04/02/20 04:00 116 04/02/20 04:00 35 04/02/20 04:00 98.6 118 22 125/70 (88) 100 04/02/20 03:00 111 23 35 04/02/20 00:00 Mechanical Ventilator 04/02/20 00:00 120 04/02/20 00:00 98.0 102 22 112/65 (81) 100 04/02/20 00:00 35 04/01/20 22:50 110 22 35 04/01/20 22:14 116 133/75 04/01/20 20:00 35 04/01/20 20:00 Mechanical Ventilator 04/01/20 20:00 98.5 112 22 128/70 (89) 100 04/01/20 19:39 104 27 35 04/01/20 19:22 112 04/01/20 16:29 97.2 106 25 106/63 (77) 100 04/01/20 16:00 Mechanical Ventilator 04/01/20 16:00 35 I&O Intake and Output 04/01/20 04/02/20 18:59 06:59 Intake Total 790 ml 1040 ml Output Total 1880 ml 1800 ml Balance -1090 ml -760 ml Free Water 90 ml 90 ml IV Total 110 ml Tube Feeding 700 ml 840 ml Output Urine Total 1850 ml 1800 ml Stool Total 30 ml # Voids 1 # Bowel Movements 4 7 Dressing: saturated Cardiovascular: RSR Respiratory: decreased breath sounds Abdomen: non-tender, present bowel sounds Extremities: no edema, no tenderness, no cyanosis Laboratory Tests Test 04/01/20 17:42 04/01/20 21:30 04/01/20 23:28 04/02/20 03:23 POC Whole Blood Glucose 146 MG/DL (74-106) H Pending Vancomycin Level Trough 13.8 ug/mL (5.0-12.0) H White Blood Count 22.6 K/UL (4.8-10.8) *H Red Blood Count 2.96 M/UL (4.20-5.40) L Hemoglobin 8.0 G/DL (12.0-16.0) L Hematocrit 23.9 % (37.0-47.0) L Mean Corpuscular Volume 81 FL (80-99) Mean Corpuscular Hemoglobin 27.1 PG (27.0-31.0) Mean Corpuscular Hemoglobin Concent 33.6 G/DL (32.0-36.0) Red Cell Distribution Width 19.7 % (11.6-14.8) H Platelet Count 479 K/UL (150-450) H Mean Platelet Volume 6.6 FL (6.5-10.1) Neutrophils (%) (Auto) % (45.0-75.0) Lymphocytes (%) (Auto) % (20.0-45.0) Monocytes (%) (Auto) % (1.0-10.0) Eosinophils (%) (Auto) % (0.0-3.0) Basophils (%) (Auto) % (0.0-2.0) Differential Total Cells Counted 100 Neutrophils % (Manual) 85 % (45-75) H Lymphocytes % (Manual) 7 % (20-45) L Monocytes % (Manual) 4 % (1-10) Eosinophils % (Manual) 4 % (0-3) H Basophils % (Manual) 0 % (0-2) Band Neutrophils 0 % (0-8) Platelet Estimate Adequate Platelet Morphology Normal Hypochromasia 1+ Anisocytosis 2+ Sodium Level 148 MMOL/L (136-145) H Potassium Level 5.0 MMOL/L (3.5-5.1) Chloride Level 112 MMOL/L (98-107) H Carbon Dioxide Level 31 MMOL/L (21-32) Anion Gap 5 mmol/L (5-15) Blood Urea Nitrogen 43 mg/dL (7-18) H Creatinine 0.9 MG/DL (0.55-1.30) Estimat Glomerular Filtration Rate > 60 mL/min (>60) Glucose Level 119 MG/DL (74-106) H Uric Acid 4.8 MG/DL (2.6-7.2) Calcium Level 9.7 MG/DL (8.5-10.1) Phosphorus Level 3.5 MG/DL (2.5-4.9) Magnesium Level 2.4 MG/DL (1.8-2.4) Total Bilirubin 0.2 MG/DL (0.2-1.0) Aspartate Amino Transf (AST/SGOT) 28 U/L (15-37) Alanine Aminotransferase (ALT/SGPT) 25 U/L (12-78) Alkaline Phosphatase 88 U/L (46-116) C-Reactive Protein, Quantitative 25.8 mg/dL (0.00-0.90) H Total Protein 7.9 G/DL (6.4-8.2) Albumin 1.7 G/DL (3.4-5.0) L Globulin 6.2 g/dL Albumin/Globulin Ratio 0.3 (1.0-2.7) L Test 04/02/20 04:00 04/02/20 05:27 04/02/20 07:18 04/02/20 11:58 Urine Color Pale yellow Urine Appearance Slightly cloudy Urine pH 8 (4.5-8.0) Urine Specific [place] 1.010 (1.005-1.035) Urine Protein 2+ (NEGATIVE) H Urine Glucose (UA) Negative (NEGATIVE) Urine Ketones Negative (NEGATIVE) Urine Blood 3+ (NEGATIVE) H Urine Nitrite Negative (NEGATIVE) Urine Bilirubin Negative (NEGATIVE) Urine Urobilinogen Normal MG/DL (0.0-1.0) Urine Leukocyte Esterase 3+ (NEGATIVE) H Urine RBC 5-10 /HPF (0 - 2) H Urine WBC 20-30 /HPF (0 - 2) H Urine Squamous Epithelial Cells Few /LPF (NONE/OCC) Urine Bacteria Few /HPF (NONE) Urine Yeast Few /HPF (NONE) H POC Whole Blood Glucose Pending Pending Arterial Blood pH 7.445 (7.350-7.450) Arterial Blood Partial Pressure CO2 44.2 mmHg (35.0-45.0) Arterial Blood Partial Pressure O2 120.5 mmHg (75.0-100.0) H Arterial Blood HCO3 29.7 mmol/L (22.0-26.0) H Arterial Blood Oxygen Saturation 98.2 % (95-100) Arterial Blood Base Excess 5.1 (-2-2) H Mukul Test Positive Plan Problems: (1) Hypernatremia (2) Sepsis (3) UTI (urinary tract infection) (4) Stage 4 decubitus ulcer Assessment & Plan: Pt presented with trach,contractures, multiple Pressure injuries in various stages.Skin assessed under collar of trach and no skin breakdown evident. Full thickness Sacral Pressure injury with undermining clockwise 6-9o'clock.Wound is irregular shaped.Base of wound is 95% granular,5% slough at undermined borders.Small area of bone exposure noted at base of wound. Small amt serosanguineous exudate noted. No odor noted. An area of slough noted along borders. Edges are otherwise adherent and flat to base of wound with surrounding dry, darker skin tone.(L)11.2cm x (W)-8.7cm x(D)1.6cm ,undermining clockwise 6-9o'clock by 1.8cm @8o'clock. Partial thickness Pressure injury noted to R ischium. Base of wound is moist ,viable with surrounding shearing and non-blanchable erythema.(L)6.5cm x (W)4.5cm. Partial thickness Pressure injury L Ischium(L)1.2cm x (W)1.5cm. Base of wound is moist and viable with surrounding non-blanchable erythema with additional shearing. Resolving Pressure Injury medial L Knee. Base of wound is pink and dry . Resolving Pressure injury medial R knee. Dry pink epithelial with scattered moist, granular areas within base of wound.No odor or exudate noted.(L)4.3cm x (W)2.6cm. DTPI L lateral Malleolus(L)2.5cm x (W)3.5cm.Base of Pressure injury is indurated and maroon in colour. Non-Blanchable erythema periwound. DTPI L achilles extending into Plantar aspect of L heel(L)9.7cm x (W)10.4cm. Base of Pressure injury is black at achilles area with scattered purpuric areas, and is otherwise maroon and indurated. Resolving Pressure injury medial R Malleolus. [place] epithelial at base of wound. Stable dry eschar noted to R Hallux (L)1.2cm x (W01.3cm. Periwound skin tone is darker without erythema or induration. Tx.Plan: Cleanse Sacral wound with Saline. Loosely pack with Therahoney impregnated Kerlix(Attention to undermined area). Apply Moisture Barrier Periwound. Cover with Optifoam drsg. Change Daily and prn. Apply Moisture Barrier Paste to R and L Ischial wounds. Cover each site with Optifoam drsg. Change every 3 days and prn. Apply Cavilon Skin Barrier to medial aspects of R and L Knee. Cover each wound with Optifoam drsg.Change every 7 days and prn. Apply Cavilon Skin Barrier to R Hallux, R Heel, R and L Malleoli, and Both heels. Cover each affected area with Optifoam drsgs. Change drsgs every 7 days and prn. Reposition at least every 2 [address] as tolerated[address] Pillow between Knees. Off-load heels with Pillow. CT noted. osteo in sacrum cont abx osteo chronic will monitor and asses if debridement needed ABDOMEN: Liver: Unremarkable. No mass. Gallbladder and bile ducts: Unremarkable. No calcified stones. No ductal dilation. Pancreas: Unremarkable. No mass. No ductal dilation. Spleen: Spleen is small. Adrenals: Unremarkable. No mass. Kidneys and ureters: Renal cysts and subcentimeter low-attenuation foci, too small to characterize. No hydronephrosis. Stomach and bowel: Unremarkable. No obstruction. No mucosal thickening. PELVIS: Appendix: No findings to suggest acute appendicitis. Bladder: Bladder wall thickening. Foci of gas in the bladder. Correlate for recent instrumentation versus cystitis. Reproductive: Unremarkable as visualized. ABDOMEN and PELVIS: Intraperitoneal space: Unremarkable. No free air. No significant fluid collection. Bones/joints: Sacrococcygeal decubitus ulcers with associated osteomyelitis. There is some underlying bone thinning and sclerosis in the distal sacrum and coccyx underlying the decubitus ulcers. No acute fracture. No dislocation. Soft tissues: Unremarkable. Vasculature: Moderate plaque abdominal aorta and branches. No abdominal aortic aneurysm. Lymph nodes: Unremarkable. No enlarged lymph nodes. Tubes, lines and devices: Gastrostomy tube within the gastric body. IMPRESSION: 1. Sacrococcygeal decubitus ulcers with associated osteomyelitis. 2. Small left pleural effusion. Left lower lobe atelectasis. 3. Bladder wall thickening. Foci of gas in the bladder. Correlate for recent instrumentation versus cystitis. DAILY ESTIMATED NEEDS: Needs based on Advanced wound, critical care, underweight, DEMOLITION ENGINEER TF/ 45.5kg 30-40 kcals/kg 4517-3969 total kcals 1.5-2 g protein/kg 68-91 g total protein 30-40 mL/kg 1149-9427 total fluid mLs NUTRITION DIAGNOSIS: Increased kcal/prot needs R/T underweight status, wound healing as evidenced by pt @83% IBW w/ underweight BMI of 17.2, admitted w/ multiple wounds, including stage 4 sacral wound. CURRENT TF:Glucerna 1.2 @ 45ml/hr x 24 hrs ENTERAL NUTRITION RECOMMENDATIONS: Glucerna 1.2 @ 60ml/hr x 24 hrs to provide 1440ml, 1728kcal, 86g prot, 1159ml free water * Increase goal rate to 60ml/hr x 24 hrs to meet 100% est kcal/prot needs -> 1.9g prot/kg * HOB over 30 degrees/ water flush per MD * add Shen BID ADDITIONAL RECOMMENDATIONS: * Per SNF: HT=64" and IE=143# vs EMR wt of 147lbs -> rec daily calibrated bedscale wt * Wound healing: TF rec @ goal will provide 100% RDI Vit C 500mg BID, ZnSO4 220gm QD x 10 days Shen BID via PEG * Monitor BGs, consider NISS: h/o DM * Monitor lytes, replete as needed (5) Chronic respiratory failure requiring continuous mechanical ventilation through tracheostomy (6) History of intracranial hemorrhage (7) Idiopathic obstructive hydrocephalus (8) Gout (9) Diabetes mellitus (10) Parkinson's disease dementia (11) Acute on chronic respiratory failure (12) Chronic vegetative state (13) Severe protein-calorie malnutrition Assessment & Plan: DAILY ESTIMATED NEEDS: Needs based on Advanced wound, critical care, underweight, DEMOLITION ENGINEER TF/ 45.5kg 30-40 kcals/kg 9997-0658 total kcals 1.5-2 g protein/kg 68-91 g total protein 30-40 mL/kg 5704-3837 total fluid mLs NUTRITION DIAGNOSIS: Increased kcal/prot needs R/T underweight status, wound healing as evidenced by pt @83% IBW w/ underweight BMI of 17.2, admitted w/ multiple wounds, including stage 4 sacral wound. CURRENT TF:Glucerna 1.2 @ 60ml/hr x 24 hrs ENTERAL NUTRITION RECOMMENDATIONS: Glucerna 1.2 @ 60ml/hr x 24 hrs to provide 1440ml, 1728kcal, 86g prot, 1159ml free water * Maintain current TF rate as tolerated to meet 100% est kcal/prot needs -> 1.9g prot/kg. * HOB over 30 degrees/ water flush per MD * add Shen BID ADDITIONAL RECOMMENDATIONS: * Per SNF: HT=64" and TX=490# vs EMR wt of 147lbs -> Recalibrate bed scale for accurate CBW * Wound healing: TF rec @ goal will provide 100% RDI add Vit C 500mg BID, continue ZnSO4 220gm QD x 10 days Shen BID via PEG * Monitor BGs, consider NISS: h/o DM -> NISS now added * Increase water flushes for elevated Na (14) Hypercalcemia (15) Staphylococcus aureus bacteremia Assessment & Plan: unlikely related to wound checking often to ensure not worsening good local care being provided cont abx There is bilateral mostly upper lobe centrilobular emphysema. Mosaic attenuation pattern is seen throughout the bilateral upper lobes. There is consolidation and atelectasis of most of the left lower lobe. A few groundglass opacities are seen in the inferior left upper lobe. There is some compressive atelectasis at the right lung base with elevation of the right hemidiaphragm. There is a subpleural 8 mm nodular opacity in the right middle lobe. On recent abdomen pelvis CT scan, this demonstrated a cavity. The cavity is not evident currently There is a tracheostomy. The pleural spaces are clear. The heart size is normal. No pericardial effusion. No mediastinal or hilar mass or adenopathy. The ascending thoracic aorta is mildly ectatic, measuring up to 3.8 cm in diameter. The included portion of the thyroid is unremarkable. No axillary or chest wall mass or adenopathy demonstrated. There is smooth thoracic kyphosis without focal compression abnormality. The bones are unremarkable. Included upper abdominal anatomy demonstrates contrast in the colon from prior CT of the abdomen. There is a upper pole right renal cyst Impression: Centrilobular emphysema seen throughout both lungs with with an upper lobe predominance, indicating extensive COPD changes Mosaic attenuation pattern in the upper lobes probably related to COPD, although this is a nonspecific finding Dense consolidation and atelectasis of much of the left lower lobe. This could represent pneumonia. Groundglass opacities in the inferior left upper lobe. These could represent areas of acute inflammation, or could represent post inflammatory changes. 8mm nodule in the right middle lobe, also described on prior CT scan. This previously demonstrated a cavity. Cavitation currently not evident. Differential considerations include neoplasm, acute or chronic inflammatory lesion. Recommend at a minimum follow-up CT scan in 6 months Tracheostomy Kyphosis Right upper pole renal cyst Chris Hunter Apr 02, 2020 15:55
[2020-04-02 16:00] VITALS: BP 147/86
--- NOTE | 2020-04-02 19:15 | NUR ---
NURSE NOTES: Received report from Conchita Zelaya RN. Pt is seen lying in bed in semi- horowitz's position. Facing on the left side. Pt is obtunded, open eyes spontenously. Temp- 98.1. Pt is STAC on cardiac rehabilitation specialist in the morning per prev nurse. Dr. Alejandre seen the pt, No new orders informed the episode sustaining of STAC. On Gtube intact and patent , glucerna 1.2 @70cc /hr continously. Tach to vent with settings as ordered. Na- 148 Morning shift gave d5w 500cc per order. Bed in lowest position, Call light within reach. Continue to plan of care.
--- NOTE | 2020-04-02 19:28 | NUR ---
NURSE HAND-OFF REPORT: Important Events on Shift:fever on and off, tachydr pedro aware Patient Status: full code Diet: tube feeds Pending Orders: [] Pending Results/Labs:[] Pending MD notification:[] Latest Vital Signs: Temperature 98.4 , Pulse 121 , B/P 147 /86 , Respiratory Rate 35 , O2 SAT 93 , Mechanical Ventilator, O2 Flow Rate . Vital Sign Comment: stable EKG Rhythm: Sinus Tachycardia Rhythm change?: N MD Notified?: N -Dr. Hill MARQUES Response: Latest Ochoa Fall Score: 70 Fall Risk: High Risk Safety Measures: Call light Within Reach, Bed Alarm Zone 2, Side Rails Side Rails x3, Bed position Low and Locked. Fall Precautions: Yellow Socks Yellow Gown Door Sign Patient Fall Education Report given to princess mcmullen.
[2020-04-02 20:00] VITALS: BP 93/56
--- NOTE | 2020-04-02 20:30 | Cardiac Electrophysiology PN ---
Assessment/Plan Assessment/Plan 1. MRSA bacteremia. Most recent blood culture from March 13, 2020 showed no growth. Echocardiogram showed ejection fraction of 60-65% with no clear vegetation. DEBBIE cancelled as family refused. On iv Abx per ID. Indium scan no clear source 2. Sinus tach due to sepsis. No atrial fib or SVT on Cardizem 30 tid 3. VDRF , status post tracheostomy.On 40% Fio2 4. Dysphagia, status post PEG placement. 5. History of intracranial hemorrhage. 6. Diabetes. 7. Glaucoma. 8. Sacral decubitus stage IV. 9. Hypertension, on Cardizem 10. Transient SVT. On Cardizem 30 tid DW RN Subjective Subjective On the Vent in sinus tach Fio2 35% and PEEP 5. Family refused DEBBIE. Had episodes of SVT lasting less than 20 seconds 03/23/20. Indium scan > no clear source. Hospice eval pending if family agrees. On iv Zyvox per ID Had fever 100.5 again and mild sinus tach in 110s. Now in NSR 90s Objective Last 24 Hour Vital Signs Date Time Temp Pulse Resp B/P (MAP) Pulse Ox O2 Delivery O2 Flow Rate FiO2 04/02/20 19:37 93 19 35 04/02/20 16:58 98.4 04/02/20 16:00 Mechanical Ventilator 04/02/20 16:00 35 04/02/20 16:00 100.5 121 35 147/86 (106) 93 04/02/20 15:59 103 20 35 04/02/20 15:23 121 04/02/20 13:42 110 105/62 04/02/20 12:18 111 04/02/20 12:00 Mechanical Ventilator 04/02/20 12:00 35 04/02/20 12:00 99.9 110 34 113/70 (84) 94 04/02/20 11:56 108 25 35 04/02/20 10:09 99.9 04/02/20 08:00 Mechanical Ventilator 04/02/20 08:00 120 04/02/20 08:00 35 04/02/20 08:00 101.4 122 36 119/67 (84) 99 04/02/20 07:46 121 31 35 04/02/20 05:40 118 129/77 04/02/20 04:00 Mechanical Ventilator 04/02/20 04:00 116 04/02/20 04:00 35 04/02/20 04:00 98.6 118 22 125/70 (88) 100 04/02/20 03:00 111 23 35 04/02/20 00:00 Mechanical Ventilator 04/02/20 00:00 120 04/02/20 00:00 98.0 102 22 112/65 (81) 100 04/02/20 00:00 35 04/01/20 22:50 110 22 35 04/01/20 22:14 116 133/75 Intake and Output 04/01/20 04/02/20 19:00 07:00 Intake Total 820 ml 1040 ml Output Total 1880 ml 1800 ml Balance -1060 ml -760 ml Free Water 120 ml 90 ml IV Total 110 ml Tube Feeding 700 ml 840 ml Output Urine Total 1850 ml 1800 ml Stool Total 30 ml # Voids 1 # Bowel Movements 4 7 Laboratory Tests Test 04/01/20 21:30 04/01/20 23:28 04/02/20 03:23 04/02/20 04:00 Vancomycin Level Trough 13.8 ug/mL (5.0-12.0) H POC Whole Blood Glucose Pending White Blood Count 22.6 K/UL (4.8-10.8) *H Red Blood Count 2.96 M/UL (4.20-5.40) L Hemoglobin 8.0 G/DL (12.0-16.0) L Hematocrit 23.9 % (37.0-47.0) L Mean Corpuscular Volume 81 FL (80-99) Mean Corpuscular Hemoglobin 27.1 PG (27.0-31.0) Mean Corpuscular Hemoglobin Concent 33.6 G/DL (32.0-36.0) Red Cell Distribution Width 19.7 % (11.6-14.8) H Platelet Count 479 K/UL (150-450) H Mean Platelet Volume 6.6 FL (6.5-10.1) Neutrophils (%) (Auto) % (45.0-75.0) Lymphocytes (%) (Auto) % (20.0-45.0) Monocytes (%) (Auto) % (1.0-10.0) Eosinophils (%) (Auto) % (0.0-3.0) Basophils (%) (Auto) % (0.0-2.0) Differential Total Cells Counted 100 Neutrophils % (Manual) 85 % (45-75) H Lymphocytes % (Manual) 7 % (20-45) L Monocytes % (Manual) 4 % (1-10) Eosinophils % (Manual) 4 % (0-3) H Basophils % (Manual) 0 % (0-2) Band Neutrophils 0 % (0-8) Platelet Estimate Adequate Platelet Morphology Normal Hypochromasia 1+ Anisocytosis 2+ Sodium Level 148 MMOL/L (136-145) H Potassium Level 5.0 MMOL/L (3.5-5.1) Chloride Level 112 MMOL/L (98-107) H Carbon Dioxide Level 31 MMOL/L (21-32) Anion Gap 5 mmol/L (5-15) Blood Urea Nitrogen 43 mg/dL (7-18) H Creatinine 0.9 MG/DL (0.55-1.30) Estimat Glomerular Filtration Rate > 60 mL/min (>60) Glucose Level 119 MG/DL (74-106) H Uric Acid 4.8 MG/DL (2.6-7.2) Calcium Level 9.7 MG/DL (8.5-10.1) Phosphorus Level 3.5 MG/DL (2.5-4.9) Magnesium Level 2.4 MG/DL (1.8-2.4) Total Bilirubin 0.2 MG/DL (0.2-1.0) Aspartate Amino Transf (AST/SGOT) 28 U/L (15-37) Alanine Aminotransferase (ALT/SGPT) 25 U/L (12-78) Alkaline Phosphatase 88 U/L (46-116) C-Reactive Protein, Quantitative 25.8 mg/dL (0.00-0.90) H Total Protein 7.9 G/DL (6.4-8.2) Albumin 1.7 G/DL (3.4-5.0) L Globulin 6.2 g/dL Albumin/Globulin Ratio 0.3 (1.0-2.7) L Urine Color Pale yellow Urine Appearance Slightly cloudy Urine pH 8 (4.5-8.0) Urine Specific [place] 1.010 (1.005-1.035) Urine Protein 2+ (NEGATIVE) H Urine Glucose (UA) Negative (NEGATIVE) Urine Ketones Negative (NEGATIVE) Urine Blood 3+ (NEGATIVE) H Urine Nitrite Negative (NEGATIVE) Urine Bilirubin Negative (NEGATIVE) Urine Urobilinogen Normal MG/DL (0.0-1.0) Urine Leukocyte Esterase 3+ (NEGATIVE) H Urine RBC 5-10 /HPF (0 - 2) H Urine WBC 20-30 /HPF (0 - 2) H Urine Squamous Epithelial Cells Few /LPF (NONE/OCC) Urine Bacteria Few /HPF (NONE) Urine Yeast Few /HPF (NONE) H Test 04/02/20 05:27 04/02/20 07:18 04/02/20 11:58 04/02/20 16:30 POC Whole Blood Glucose Pending Pending 160 MG/DL (74-106) H Arterial Blood pH 7.445 (7.350-7.450) Arterial Blood Partial Pressure CO2 44.2 mmHg (35.0-45.0) Arterial Blood Partial Pressure O2 120.5 mmHg (75.0-100.0) H Arterial Blood HCO3 29.7 mmol/L (22.0-26.0) H Arterial Blood Oxygen Saturation 98.2 % (95-100) Arterial Blood Base Excess 5.1 (-2-2) H Mukul Test Positive Objective HEAD AND NECK: No JVD. LUNGS: Coarse rhonchi. Status post tracheostomy. CARDIOVASCULAR: Regular S1 and S2 with no gallop or rub. Status post PEG. EXTREMITIES: 1+ pitting edema with sacral decubitus. Shay Alejandre MD Apr 02, 2020 20:30
[2020-04-03] VITALS: BP 101/61
[2020-04-03] MEDS: NovoLOG Insulin Flexpen SUBQ SCH ×5 (00:05→22:56)
--- NOTE | 2020-04-03 01:15 | NUR ---
NURSE NOTES: Seen pt in bed in comfortable and calm manner, not in apparent respiratory distress. o2 sat- 95%. No pain noted. No bleeding noted. No fever noted. Bed in lowest position, call light within reach. Continue to plan of care.
--- NOTE | 2020-04-03 02:44 | NUR ---
NURSE NOTES: Sponge bath given, cleaned pt, noted to have 1x large bowel movement no bleeding noted. Suctioned Oral secretions. No pain noted. Continue to plan of care. Bed in lowest position. Call light within reach.
[2020-04-03 04:00] VITALS: BP 111/67
[2020-04-03] MEDS: dilTIAZem HCl 30mg tab GT SCH ×3 (05:08→21:21)
[2020-04-03] MEDS: Acetaminophen 650mg/20.3ml GT PRN (05:49)
--- NOTE | 2020-04-03 05:58 | NUR ---
NURSE NOTES: Noted to have fever, cooling measures provided, meds given as ordered. Cleaned pt and noted 1x BM soft brown in color. Bed in lowest position, call light within reach. Continue to plan of care.
[2020-04-03 07:01] LABS: BLOOD UREA NITROGEN 47 mg/dL (7-18); CALCIUM 9.5 MG/DL (8.5-10.1); CHLORIDE 112 MMOL/L (98-107); CREATININE 0.9 MG/DL (0.55-1.30); POTASSIUM 5.4 MMOL/L (3.5-5.1); SODIUM 148 MMOL/L (136-145)
--- NOTE | 2020-04-03 07:10 | NUR ---
NURSE HAND-OFF REPORT: Important Events on Shift: fever at 0600- cooling measures given, meds given as ordered. STAV- physician previously aware Patient Status: Guarding Diet: GTF Pending Orders: None Pending Results/Labs:None Pending MD notification: None Latest Vital Signs: Temperature 98.2 , Pulse 97 , B/P 115 /61 , Respiratory Rate 24 , O2 SAT 100 , Mechanical Ventilator, O2 Flow Rate . Vital Sign Comment: fever rechecked -98.2 EKG Rhythm: Sinus Rhythm Rhythm change?: N Notified?: N -Dr. Hill MARQUES Response: Latest Ochoa Fall Score: 70 Fall Risk: High Risk Safety Measures: Call light Within Reach, Bed Alarm Zone 2, Side Rails Side Rails x3, Bed position Low and Locked. Fall Precautions: Yellow Socks Yellow Gown Door Sign Patient Fall Education Report given to [ADILENE Zelaya].
[2020-04-03 07:13] LABS: HEMATOCRIT 24.6 % (37.0-47.0); MEAN CORPUSCULAR VOLUME 83 FL (80-99); PLATELET COUNT 466 K/UL (150-450); RED BLOOD COUNT 2.96 M/UL (4.20-5.40); RED CELL DISTRIBUTION WIDTH 19.2 % (11.6-14.8); WHITE BLOOD COUNT 19.3 K/UL (4.8-10.8)
[2020-04-03 07:24] LABS: CARBON DIOXIDE 31 MMOL/L (21-32)
[2020-04-03 08:00] VITALS: BP 126/67
[2020-04-03] MEDS: Ascorbic Acid 500mg tab ORAL SCH (08:14)
[2020-04-03] MEDS: Zinc Sulfate 220mg ORAL SCH (08:14)
[2020-04-03] MEDS ORDERED: NS 275ml ONE (08:33)
--- NOTE | 2020-04-03 08:49 | Pulmonolgy Critical Care Note ---
Critical Care - Asmt/Plan Problems: (1) Acute on chronic respiratory failure (2) Persistent fever (3) Sepsis (4) Staphylococcus aureus bacteremia (5) Chronic respiratory failure requiring continuous mechanical ventilation through tracheostomy (6) Stage 4 decubitus ulcer (7) Diabetes mellitus (8) Parkinson's disease dementia (9) Gout (10) Idiopathic obstructive hydrocephalus (11) Severe protein-calorie malnutrition (12) History of intracranial hemorrhage (13) Chronic vegetative state Respiratory: monitor respiratory rate, adjust FIO2, CXR Cardiac: continue pressors, continue to monitor HR/BP Renal: F/U I&O, keep IV fluid, check electrolytes Infectious Disease: check cultures Gastrointestinal: continue feedings/current rate Endocrine: continue sliding scale insulin Neurologic: PRN Ativan, keep patient comfortable Prophylaxis: Protonix Time Spent (Minutes): 40 Notes Reviewed: advanced manufacturing engineer, cardio, renal Discussed with: nurses, consultants, therapeutic case managerarea sales manager - Objective Last 24 Hour Vital Signs Date Time Temp Pulse Resp B/P (MAP) Pulse Ox O2 Delivery O2 Flow Rate FiO2 04/03/20 07:18 35 04/03/20 07:08 97 24 35 04/03/20 06:19 98.2 04/03/20 05:08 107 115/61 04/03/20 04:11 35 04/03/20 04:00 100 04/03/20 04:00 Mechanical Ventilator 04/03/20 04:00 98.2 100 22 111/67 (82) 100 04/03/20 03:00 98 19 35 04/03/20 00:00 35 04/03/20 00:00 Mechanical Ventilator 04/03/20 00:00 101 04/03/20 00:00 98.1 92 20 101/61 (74) 100 04/02/20 23:00 103 24 35 04/02/20 22:24 107 131/76 04/02/20 20:00 35 04/02/20 20:00 Mechanical Ventilator 04/02/20 20:00 98.4 95 22 93/56 (68) 95 04/02/20 19:54 93 04/02/20 19:37 93 19 35 04/02/20 16:58 98.4 04/02/20 16:00 Mechanical Ventilator 04/02/20 16:00 35 04/02/20 16:00 100.5 121 35 147/86 (106) 93 04/02/20 15:59 103 20 35 04/02/20 15:23 121 04/02/20 13:42 110 105/62 04/02/20 12:18 111 04/02/20 12:00 Mechanical Ventilator 04/02/20 12:00 35 04/02/20 12:00 99.9 110 34 113/70 (84) 94 04/02/20 11:56 108 25 35 04/02/20 10:09 99.9 Status: sedated Condition: critical HEENT: atraumatic Neck: full ROM Lungs: rales, rhonchi Heart: HR/BP stable Abdomen: soft Extremities: no C/C/E Micro: Microbiology Date/Time Source Procedure Growth Status 04/02/20 15:30 Sputum Gram Stain - Final Resulted 04/02/20 15:30 Sputum Sputum Culture Pending Resulted 04/01/20 18:50 Blood Blood Culture - Preliminary NO GROWTH AFTER 24 HOURS Resulted 04/01/20 18:35 Blood Blood Culture - Preliminary NO GROWTH AFTER 24 HOURS Resulted Accucheck: 165 Critical Care - Subjective ROS Limited/Unobtainable: Yes Condition: critical EKG Rhythm: Sinus Rhythm FI02: 35 Vent Support Breath Rate: 16 Vent Support Mode: AC Vent Tidal Volume: 400 Sputum Amount: Small PEEP: 5.0 PIP: 14 Tube Feeding Amount: 70 I&O: Intake and Output0 04/02/20 04/03/20 19:00 07:00 Intake Total 1530 ml 930 ml Output Total 850 ml 450 ml Balance 680 ml 480 ml Free Water 80 ml 0 ml IV Total 610 ml 110 ml Tube Feeding 840 ml 770 ml Blood Product 50 ml Output Urine Total 850 ml 450 ml # Bowel Movements 1 2 CXR: no changes Labs: Laboratory Tests Test 04/02/20 11:58 04/02/20 16:30 04/03/20 00:03 04/03/20 03:04 POC Whole Blood Glucose Pending 160 MG/DL (74-106) H 156 MG/DL (74-106) H White Blood Count 19.3 K/UL (4.8-10.8) H Red Blood Count 2.96 M/UL (4.20-5.40) L Hemoglobin 8.0 G/DL (12.0-16.0) L Hematocrit 24.6 % (37.0-47.0) L Mean Corpuscular Volume 83 FL (80-99) Mean Corpuscular Hemoglobin 27.1 PG (27.0-31.0) Mean Corpuscular Hemoglobin Concent 32.6 G/DL (32.0-36.0) Red Cell Distribution Width 19.2 % (11.6-14.8) H Platelet Count 466 K/UL (150-450) H Mean Platelet Volume 6.4 FL (6.5-10.1) L Neutrophils (%) (Auto) % (45.0-75.0) Lymphocytes (%) (Auto) % (20.0-45.0) Monocytes (%) (Auto) % (1.0-10.0) Eosinophils (%) (Auto) % (0.0-3.0) Basophils (%) (Auto) % (0.0-2.0) Neutrophils % (Manual) Pending Lymphocytes % (Manual) Pending Platelet Estimate Pending Platelet Morphology Pending Sodium Level 148 MMOL/L (136-145) H Potassium Level 5.4 MMOL/L (3.5-5.1) H Chloride Level 112 MMOL/L (98-107) H Carbon Dioxide Level 31 MMOL/L (21-32) Blood Urea Nitrogen 47 mg/dL (7-18) H Creatinine 0.9 MG/DL (0.55-1.30) Estimat Glomerular Filtration Rate > 60 mL/min (>60) Glucose Level 139 MG/DL (74-106) H Calcium Level 9.5 MG/DL (8.5-10.1) Test 04/03/20 05:01 POC Whole Blood Glucose 165 MG/DL (74-106) H Patti Matta MD Apr 03, 2020 08:49
--- NOTE | 2020-04-03 08:55 | Infectious Diseases Prog Note ---
Assessment/Plan 74yo F with: Febrile, persistent - most likely 2/2 worsening sacral decub, all other w/u neg Leukocytosis, persistent ; increasing Thrombocytosis, increasing >> improving Sepsis Left lower lung infiltrate Acute on chronic resp failure SP trach MRSA bacteremia DEBBIE cancelled as family refused RML cavitation, not seen on CT chest 03/11 BCx +MRSA Resp cx +PsA (S-Zosyn, I-merissa and cefepime) UCx 30-40k ACB (colonizer) COVID rapid Ag neg CXR: Midline tracheostomy. Small left pleural effusion. Hyperinflation with flattening of the diaphragms and emphysema, consistent with COPD. No lobar infiltrate. 03/12 BCx NTD 03/13 C.dif neg 03/13 BCx NTD 03/14 BCx NTD 03/14 CT A/P: 1. Sacrococcygeal decubitus ulcers with associated osteomyelitis. 2. Small left pleural effusion. Left lower lobe atelectasis. 3. Bladder wall thickening. Foci of gas in the bladder. Correlate for recent instrumentation versus cystitis. Lung bases: Small nodular focus of cavitation in the right middle lobe. This may be secondary to infection. Recommend continued follow-up. Emphysematous changes in the lung bases. 1.2 cm nodular focus with some central cavitation in the right middle lobe. Pleural space: Small left pleural effusion. Left lower lobe atelectasis. 03/14 TTE: No vegetations, thickened valves 03/17 CXR: 1. Unchanged tracheostomy. 2. Mildly more pronounced linear interstitial prominence could represent atypical infection or interstitial pulmonary edema in the proper clinical context. 3. Unchanged hyperinflation. 4. Unchanged mild retrocardiac atelectasis without or with consolidation. 03/20 BCx NTD 03/20 CT chest: Centrilobular emphysema seen throughout both lungs with with an upper lobe predominance, indicating extensive COPD changes. Mosaic attenuation pattern in the upper lobes probably related to COPD, although this is a nonspecific finding. Dense consolidation and atelectasis of much of the left lower lobe. This could represent pneumonia. Groundglass opacities in the inferior left upper lobe. These could represent areas of acute inflammation, or could represent post inflammatory changes. 8mm nodule in the right middle lobe, also described on prior CT scan. This previously demonstrated a cavity. Cavitation currently not evident. Differential considerations include neoplasm, acute or chronic inflammatory lesion. Recommend at a minimum follow-up CT scan in 6 months 03/21 Resp cx +Serratia and PsA (S-Zosyn) 03/21 SPC changed 03/22 UA/UCx +yeast 03/27 Indium scan: Limited exam, as described. No definite abnormality to explain stated clinical history of leukocytosis 04/01 BCx NTD 04/02 UA 20-30 WBC, UCx p 04/02 Resp cx p R/o C.dif 03/29 C.dif neg Worsening sacral decub ulceration, likely cause of ongoing low-grade fevers BUE and BLE neg for DVT 03/21 MRSA nares positive VDRF S/p trach/PEG Bed bound Sacral decub ulceration w/ underlying OM Plan: Cont Vancomycin IV #4 (abx d#11) for MRSA bacteremia - Duration 6 weeks given inability to r/o endocarditis without DEBBIE, end date = 04/21/20 F/u BCx 04/01, UCx/Resp cx 04/02 Trend WBC Trend temp curve Appreciate Wound Care/Surgery input on worsening sacral decub - this is likely the cause of ongoing fevers Agree with hospice evaluation if family decides 03/31 SP linezolid #8 03/30 SP levofloxacin #7 for ACB in UCx 03/28 SP Zosyn #10 for pna 03/22 Sp IV vancomycin #11 03/14 SP cefepime #4 Monitor CBC/CMP Monitor temp curve, hemodynamics Monitor resp status repeat cultures D/w RN Thank you for this consult. [facility] will continue to follow. Subjective Allergies: Coded Allergies: No Known Allergies (Unverified , 03/11/20) Tmax 100.5 WBC 19, improving NAD on vent Objective Last 24 Hour Vital Signs Date Time Temp Pulse Resp B/P (MAP) Pulse Ox O2 Delivery O2 Flow Rate FiO2 04/03/20 07:18 35 04/03/20 07:08 97 24 35 04/03/20 06:19 98.2 04/03/20 05:08 107 115/61 04/03/20 04:11 35 04/03/20 04:00 100 04/03/20 04:00 Mechanical Ventilator 04/03/20 04:00 98.2 100 22 111/67 (82) 100 04/03/20 03:00 98 19 35 04/03/20 00:00 35 04/03/20 00:00 Mechanical Ventilator 04/03/20 00:00 101 04/03/20 00:00 98.1 92 20 101/61 (74) 100 04/02/20 23:00 103 24 35 04/02/20 22:24 107 131/76 04/02/20 20:00 35 04/02/20 20:00 Mechanical Ventilator 04/02/20 20:00 98.4 95 22 93/56 (68) 95 04/02/20 19:54 93 04/02/20 19:37 93 19 35 04/02/20 16:58 98.4 04/02/20 16:00 Mechanical Ventilator 04/02/20 16:00 35 04/02/20 16:00 100.5 121 35 147/86 (106) 93 04/02/20 15:59 103 20 35 04/02/20 15:23 121 04/02/20 13:42 110 105/62 04/02/20 12:18 111 04/02/20 12:00 Mechanical Ventilator 04/02/20 12:00 35 04/02/20 12:00 99.9 110 34 113/70 (84) 94 04/02/20 11:56 108 25 35 04/02/20 10:09 99.9 Height (Feet): 5 Height (Inches): 5.00 Weight (Pounds): 147 Gen: NAD in bed HEENT: NCAT, trach + secretions CV: RRR Pulm: CTAB Abd: Soft, NTND, +PEG +SPC Ext: No c/c/e Skin: Stage 4 sacral decub ulceration - larger than on admission but clean Neuro: Awake, not interactive Microbiology Date/Time Source Procedure Growth Status 04/02/20 15:30 Sputum Gram Stain - Final Resulted 04/02/20 15:30 Sputum Sputum Culture Pending Resulted 04/01/20 18:50 Blood Blood Culture - Preliminary NO GROWTH AFTER 24 HOURS Resulted 04/01/20 18:35 Blood Blood Culture - Preliminary NO GROWTH AFTER 24 HOURS Resulted Laboratory Tests Test 04/02/20 11:58 04/02/20 16:30 04/03/20 00:03 04/03/20 03:04 POC Whole Blood Glucose Pending 160 MG/DL (74-106) H 156 MG/DL (74-106) H White Blood Count 19.3 K/UL (4.8-10.8) H Red Blood Count 2.96 M/UL (4.20-5.40) L Hemoglobin 8.0 G/DL (12.0-16.0) L Hematocrit 24.6 % (37.0-47.0) L Mean Corpuscular Volume 83 FL (80-99) Mean Corpuscular Hemoglobin 27.1 PG (27.0-31.0) Mean Corpuscular Hemoglobin Concent 32.6 G/DL (32.0-36.0) Red Cell Distribution Width 19.2 % (11.6-14.8) H Platelet Count 466 K/UL (150-450) H Mean Platelet Volume 6.4 FL (6.5-10.1) L Neutrophils (%) (Auto) % (45.0-75.0) Lymphocytes (%) (Auto) % (20.0-45.0) Monocytes (%) (Auto) % (1.0-10.0) Eosinophils (%) (Auto) % (0.0-3.0) Basophils (%) (Auto) % (0.0-2.0) Differential Total Cells Counted 100 Neutrophils % (Manual) 65 % (45-75) Lymphocytes % (Manual) 8 % (20-45) L Monocytes % (Manual) 12 % (1-10) H Eosinophils % (Manual) 13 % (0-3) H Basophils % (Manual) 0 % (0-2) Myelocytes % 1 % (0-0) H Band Neutrophils 1 % (0-8) Platelet Estimate Adequate Platelet Morphology Normal Polychromasia 1+ Hypochromasia 1+ Anisocytosis 2+ Sodium Level 148 MMOL/L (136-145) H Potassium Level 5.4 MMOL/L (3.5-5.1) H Chloride Level 112 MMOL/L (98-107) H Carbon Dioxide Level 31 MMOL/L (21-32) Blood Urea Nitrogen 47 mg/dL (7-18) H Creatinine 0.9 MG/DL (0.55-1.30) Estimat Glomerular Filtration Rate > 60 mL/min (>60) Glucose Level 139 MG/DL (74-106) H Calcium Level 9.5 MG/DL (8.5-10.1) Test 04/03/20 05:01 POC Whole Blood Glucose 165 MG/DL (74-106) H Current Medications Medications (Trade) Dose Ordered Sig/Zaki Route PRN Reason Start Time Stop Time Status Last Admin Dose Admin Acetaminophen (Tylenol) 650 mg Q6H PRN GT Temp >100.5, Mild Pain 03/11/20 06:30 04/10/20 06:29 04/03/20 05:49 Ascorbic Acid (Vitamin C) 500 mg DAILY ORAL 03/28/20 09:00 04/27/20 08:59 04/03/20 08:14 Calcitonin [place] (Miacalcin) 1 sprays DAILY NASAL 03/13/20 11:00 06/11/20 10:59 04/03/20 08:14 Dextrose (Dextrose 50%) 25 ml Q30M PRN IV Hypoglycemia 03/13/20 23:30 06/11/20 23:29 Dextrose (Dextrose 50%) 50 ml Q30M PRN IV Hypoglycemia 03/13/20 23:30 06/11/20 23:29 Diltiazem HCl (Cardizem Tab) 30 mg EVERY 8 HOURS GT 03/24/20 14:00 04/23/20 13:59 04/03/20 05:08 Diphenhydramine HCl (Benadryl) 25 mg Q8H PRN ORAL Itching 03/14/20 15:00 04/13/20 14:59 03/14/20 15:50 Famotidine (Pepcid) 20 mg BID GT 03/18/20 18:00 06/09/20 08:59 04/03/20 08:14 Insulin Aspart (NovoLOG) Q6HR SUBQ 03/14/20 00:00 06/12/20 00:00 04/03/20 05:07 Multivitamins (Multivitamins) 1 tab DAILY ORAL 03/28/20 09:00 04/27/20 08:59 04/03/20 08:14 Ondansetron HCl (Zofran) 4 mg Q4H PRN IVP Nausea & Vomiting 03/11/20 06:30 04/10/20 06:29 Vancomycin HCl (Vanco pharmacy to dose) 1 ea DAILY PRN MISC Per rx protocol 03/31/20 09:00 04/30/20 08:59 Vancomycin HCl 500 mg/Sodium Chloride 110 ml @ 110 mls/hr Q12H IVPB 03/31/20 23:00 04/05/20 22:59 04/02/20 22:30 Zinc Sulfate (Zinc Sulfate) 220 mg DAILY ORAL 03/28/20 09:00 04/07/20 09:00 04/03/20 08:14 Shirley Villegas M.D. Apr 03, 2020 08:55
[2020-04-03] MEDS ORDERED: Sodium Polystyrene Sulfonate 15gm Powder GT SCH (09:30)
--- NOTE | 2020-04-03 09:31 | Cardiac Electrophysiology PN ---
Assessment/Plan Assessment/Plan 1. MRSA bacteremia. Most recent blood culture from March 13, 2020 showed no growth. Echo showed EF of 60-65% with no clear vegetation. DEBBIE cancelled as family refused. On iv Abx per ID. Indium scan no clear source 2. Sinus tach due to sepsis. No atrial fib or SVT on Cardizem 30 tid 3. VDRF , status post tracheostomy.On 40% Fio2 4. Dysphagia, status post PEG placement. 5. History of intracranial hemorrhage. 6. Diabetes. 7. Glaucoma. 8. Sacral decubitus stage IV. 9. Hypertension, on Cardizem 10. Transient SVT. On Cardizem 30 tid DW RN Subjective Subjective On the Vent in sinus tach Fio2 35% and PEEP 5. Family refused DEBBIE. Had episodes of SVT lasting less than 20 seconds 03/23/20. Indium scan > no clear source. Hospice eval pending if family agrees. On iv Zyvox per ID Has fever again and now is having cooling measures Objective Last 24 Hour Vital Signs Date Time Temp Pulse Resp B/P (MAP) Pulse Ox O2 Delivery O2 Flow Rate FiO2 04/03/20 08:00 97.0 99 23 126/67 (86) 100 04/03/20 08:00 101 04/03/20 07:18 35 04/03/20 07:08 97 24 35 04/03/20 06:19 98.2 04/03/20 05:08 107 115/61 04/03/20 04:11 35 04/03/20 04:00 100 04/03/20 04:00 Mechanical Ventilator 04/03/20 04:00 98.2 100 22 111/67 (82) 100 04/03/20 03:00 98 19 35 04/03/20 00:00 35 04/03/20 00:00 Mechanical Ventilator 04/03/20 00:00 101 04/03/20 00:00 98.1 92 20 101/61 (74) 100 04/02/20 23:00 103 24 35 04/02/20 22:24 107 131/76 04/02/20 20:00 35 04/02/20 20:00 Mechanical Ventilator 04/02/20 20:00 98.4 95 22 93/56 (68) 95 04/02/20 19:54 93 04/02/20 19:37 93 19 35 04/02/20 16:58 98.4 04/02/20 16:00 Mechanical Ventilator 04/02/20 16:00 35 04/02/20 16:00 100.5 121 35 147/86 (106) 93 04/02/20 15:59 103 20 35 04/02/20 15:23 121 04/02/20 13:42 110 105/62 04/02/20 12:18 111 04/02/20 12:00 Mechanical Ventilator 04/02/20 12:00 35 04/02/20 12:00 99.9 110 34 113/70 (84) 94 04/02/20 11:56 108 25 35 04/02/20 10:09 99.9 Intake and Output 04/02/20 04/03/20 19:00 07:00 Intake Total 1530 ml 930 ml Output Total 850 ml 450 ml Balance 680 ml 480 ml Free Water 80 ml 0 ml IV Total 610 ml 110 ml Tube Feeding 840 ml 770 ml Blood Product 50 ml Output Urine Total 850 ml 450 ml # Bowel Movements 1 2 Laboratory Tests Test 04/02/20 11:58 04/02/20 16:30 04/03/20 00:03 04/03/20 03:04 POC Whole Blood Glucose Pending 160 MG/DL (74-106) H 156 MG/DL (74-106) H White Blood Count 19.3 K/UL (4.8-10.8) H Red Blood Count 2.96 M/UL (4.20-5.40) L Hemoglobin 8.0 G/DL (12.0-16.0) L Hematocrit 24.6 % (37.0-47.0) L Mean Corpuscular Volume 83 FL (80-99) Mean Corpuscular Hemoglobin 27.1 PG (27.0-31.0) Mean Corpuscular Hemoglobin Concent 32.6 G/DL (32.0-36.0) Red Cell Distribution Width 19.2 % (11.6-14.8) H Platelet Count 466 K/UL (150-450) H Mean Platelet Volume 6.4 FL (6.5-10.1) L Neutrophils (%) (Auto) % (45.0-75.0) Lymphocytes (%) (Auto) % (20.0-45.0) Monocytes (%) (Auto) % (1.0-10.0) Eosinophils (%) (Auto) % (0.0-3.0) Basophils (%) (Auto) % (0.0-2.0) Differential Total Cells Counted 100 Neutrophils % (Manual) 65 % (45-75) Lymphocytes % (Manual) 8 % (20-45) L Monocytes % (Manual) 12 % (1-10) H Eosinophils % (Manual) 13 % (0-3) H Basophils % (Manual) 0 % (0-2) Myelocytes % 1 % (0-0) H Band Neutrophils 1 % (0-8) Platelet Estimate Adequate Platelet Morphology Normal Polychromasia 1+ Hypochromasia 1+ Anisocytosis 2+ Sodium Level 148 MMOL/L (136-145) H Potassium Level 5.4 MMOL/L (3.5-5.1) H Chloride Level 112 MMOL/L (98-107) H Carbon Dioxide Level 31 MMOL/L (21-32) Blood Urea Nitrogen 47 mg/dL (7-18) H Creatinine 0.9 MG/DL (0.55-1.30) Estimat Glomerular Filtration Rate > 60 mL/min (>60) Glucose Level 139 MG/DL (74-106) H Calcium Level 9.5 MG/DL (8.5-10.1) Test 04/03/20 05:01 POC Whole Blood Glucose 165 MG/DL (74-106) H Microbiology Date/Time Source Procedure Growth Status 04/02/20 15:30 Sputum Gram Stain - Final Resulted 04/02/20 15:30 Sputum Sputum Culture Pending Resulted 04/01/20 18:50 Blood Blood Culture - Preliminary NO GROWTH AFTER 24 HOURS Resulted 04/01/20 18:35 Blood Blood Culture - Preliminary NO GROWTH AFTER 24 HOURS Resulted Objective HEAD AND NECK: No JVD. LUNGS: Coarse rhonchi. Status post tracheostomy. CARDIOVASCULAR: Regular S1 and S2 with no gallop or rub. Status post PEG. EXTREMITIES: 1+ pitting edema with sacral decubitus. Shay Alejandre MD Apr 03, 2020 09:31
[2020-04-03] MEDS: Vancomycin 500 MG in NS 110 ML IVPB SCH ×2 (11:04→22:55)
[2020-04-03 12:00] VITALS: BP 150/84
--- NOTE | 2020-04-03 13:02 | Internal Med Progress Note ---
Subjective Date of Service: Apr 03, 2020 Physician Name JennPiyush Attending Physician Jesus Lutz MD Current Medications Medications (Trade) Dose Ordered Sig/Zaki Route PRN Reason Start Time Stop Time Status Last Admin Dose Admin Acetaminophen (Tylenol) 650 mg Q6H PRN GT Temp >100.5, Mild Pain 03/11/20 06:30 04/10/20 06:29 04/03/20 05:49 Ascorbic Acid (Vitamin C) 500 mg DAILY GT 04/04/20 09:00 04/27/20 08:59 Calcitonin [place] (Miacalcin) 1 sprays DAILY NASAL 03/13/20 11:00 06/11/20 10:59 04/03/20 08:14 Dextrose 1,000 ml @ 75 mls/hr [id number] IV 04/03/20 10:00 05/03/20 09:59 04/03/20 09:48 Dextrose (Dextrose 50%) 25 ml Q30M PRN IV Hypoglycemia 03/13/20 23:30 06/11/20 23:29 Dextrose (Dextrose 50%) 50 ml Q30M PRN IV Hypoglycemia 03/13/20 23:30 06/11/20 23:29 Diltiazem HCl (Cardizem Tab) 30 mg EVERY 8 HOURS GT 03/24/20 14:00 04/23/20 13:59 04/03/20 05:08 Diphenhydramine HCl (Benadryl) 25 mg Q8H PRN ORAL Itching 03/14/20 15:00 04/13/20 14:59 03/14/20 15:50 Famotidine (Pepcid) 20 mg BID GT 03/18/20 18:00 06/09/20 08:59 04/03/20 08:14 Insulin Aspart (NovoLOG) Q6HR SUBQ 03/14/20 00:00 06/12/20 00:00 04/03/20 05:07 Multivitamins (Multivitamins) 1 tab DAILY GT 04/04/20 09:00 04/27/20 08:59 Ondansetron HCl (Zofran) 4 mg Q4H PRN IVP Nausea & Vomiting 03/11/20 06:30 04/10/20 06:29 Vancomycin HCl (Vanco pharmacy to dose) 1 ea DAILY PRN MISC Per rx protocol 03/31/20 09:00 1/3/21 08:59 Vancomycin HCl 500 mg/Sodium Chloride 110 ml @ 110 mls/hr Q12H IVPB 03/31/20 23:00 04/05/20 22:59 04/03/20 11:04 Zinc Sulfate (Zinc Sulfate) 220 mg DAILY GT 04/04/20 09:00 04/07/20 09:00 Allergies: Coded Allergies: No Known Allergies (Unverified , 03/11/20) ROS Limited/Unobtainable: Yes Subjective 74 YO F trach dependent admitted with hypoxic respiratory failure. Now pneumonia and sepsis. Cover for Int [place]-Dr Luzt. Step down unit. Tracheostomy Objective Last Vital Signs Date Time Temp Pulse Resp B/P (MAP) Pulse Ox O2 Delivery O2 Flow Rate FiO2 04/03/20 12:00 98.1 105 23 150/84 (106) 99 04/03/20 12:00 Mechanical Ventilator 04/03/20 12:00 35 Laboratory Tests Test 04/02/20 16:30 04/03/20 00:03 04/03/20 03:04 04/03/20 05:01 POC Whole Blood Glucose 160 MG/DL (74-106) H 156 MG/DL (74-106) H 165 MG/DL (74-106) H White Blood Count 19.3 K/UL (4.8-10.8) H Red Blood Count 2.96 M/UL (4.20-5.40) L Hemoglobin 8.0 G/DL (12.0-16.0) L Hematocrit 24.6 % (37.0-47.0) L Mean Corpuscular Volume 83 FL (80-99) Mean Corpuscular Hemoglobin 27.1 PG (27.0-31.0) Mean Corpuscular Hemoglobin Concent 32.6 G/DL (32.0-36.0) Red Cell Distribution Width 19.2 % (11.6-14.8) H Platelet Count 466 K/UL (150-450) H Mean Platelet Volume 6.4 FL (6.5-10.1) L Neutrophils (%) (Auto) % (45.0-75.0) Lymphocytes (%) (Auto) % (20.0-45.0) Monocytes (%) (Auto) % (1.0-10.0) Eosinophils (%) (Auto) % (0.0-3.0) Basophils (%) (Auto) % (0.0-2.0) Differential Total Cells Counted 100 Neutrophils % (Manual) 65 % (45-75) Lymphocytes % (Manual) 8 % (20-45) L Monocytes % (Manual) 12 % (1-10) H Eosinophils % (Manual) 13 % (0-3) H Basophils % (Manual) 0 % (0-2) Myelocytes % 1 % (0-0) H Band Neutrophils 1 % (0-8) Platelet Estimate Adequate Platelet Morphology Normal Polychromasia 1+ Hypochromasia 1+ Anisocytosis 2+ Sodium Level 148 MMOL/L (136-145) H Potassium Level 5.4 MMOL/L (3.5-5.1) H Chloride Level 112 MMOL/L (98-107) H Carbon Dioxide Level 31 MMOL/L (21-32) Blood Urea Nitrogen 47 mg/dL (7-18) H Creatinine 0.9 MG/DL (0.55-1.30) Estimat Glomerular Filtration Rate > 60 mL/min (>60) Glucose Level 139 MG/DL (74-106) H Calcium Level 9.5 MG/DL (8.5-10.1) Test 04/03/20 10:00 04/03/20 10:55 Vancomycin Level Trough 16.3 ug/mL (5.0-12.0) H POC Whole Blood Glucose 132 MG/DL (74-106) H Microbiology Date/Time Source Procedure Growth Status 04/02/20 15:30 Sputum Gram Stain - Final Resulted 04/02/20 15:30 Sputum Sputum Culture Pending Resulted 04/01/20 18:50 Blood Blood Culture - Preliminary NO GROWTH AFTER 24 HOURS Resulted 04/01/20 18:35 Blood Blood Culture - Preliminary NO GROWTH AFTER 24 HOURS Resulted Intake and Output 04/02/20 04/03/20 19:00 07:00 Intake Total 1530 ml 930 ml Output Total 850 ml 450 ml Balance 680 ml 480 ml Free Water 80 ml 0 ml IV Total 610 ml 110 ml Tube Feeding 840 ml 770 ml Blood Product 50 ml Output Urine Total 850 ml 450 ml # Bowel Movements 1 2 Objective PHYSICAL EXAMINATION: GENERAL: The patient is a thin-appearing female who is intubated and nonverbal. HEENT: Eyes, pupils are equal and responsive to light and accommodation. Extraocular movements are intact. NECK: Supple without lymphadenopathy. Tracheostomy is in place. CHEST: Mech vent; Diffuse wheezes bilaterally without rhonchi. CARDIOVASCULAR: Tachycardic, regular rhythm. S1, S2 are normal without murmurs, rubs, or gallops. ABDOMEN: Soft, nontender, and nondistended. Positive bowel sounds. No evidence of hepatosplenomegaly. Currently, no rebound or guarding noted. EXTREMITIES: Negative for clubbing, cyanosis, or edema. RECTAL/GENITAL: Not performed. NEUROLOGIC: Unable to assess. chest x-ray revealed left lower lobe consolidation consistent with pneumonia Assessment/Plan Assessment/Plan ASSESSMENT: This is a 74-year-old female. 1. Left lower lobe pneumonia. 2. Respiratory failure. 3. Hypernatremia. 4. Renal failure. 5. Hypoxemia. 6. Tracheostomy dependence. 7. Chronic obstructive pulmonary disease. 8. Diabetes type 2. 9. Parkinson disease. 10. Gout. 11. Glaucoma. 12. Sacral decubitus ulcer stage IV. 13. History of intracranial hemorrhage. 14. Hydrocephalus. 15. sepsis=MRSA 16. UTI=MDR acenitobacter 17. diarrhea TREATMENT: 1. Left lower lobe pneumonia/respiratory failure/sepsis. Pulmonary consultation =Dr. Patti Matta. ABX= continue vancomycin; S/P linezolid and levaquin. S/P vanco and zosyn -see ID note Infectious disease=Dr. Villegas. We will follow recommendations of Infectious Disease and Pulmonary. 2. Hypernatremia. Hypernatremia may be secondary to renal failure versus dehydration. Nephrology consultation =. 3. Renal failure nephrology consultation =Dr. Huntley. 4. Tracheostomy dependence. 5. Chronic obstructive pulmonary disease. 6. Diabetes type 2. NovoLog sliding scale has been instituted. 7. Parkinson disease. 8. Gout. Continue allopurinol as above. 9. Glaucoma. 10. Sacral decubitus ulcer stage IV. A general surgery consultation has been obtained with Dr. Chris Hunter. 11. History of intracranial hemorrhage. 12. DEBBIE refused by patient's daughter; cardiology=Trista Alejandre and Rachel 13. Await indium scan result 14. Stool for C. Diff and cult Piyush Barajas MD Apr 03, 2020 13:02
--- NOTE | 2020-04-03 14:06 | Nephrology Progress Note ---
Assessment/Plan Problem List: (1) Hypercalcemia (2) Hypernatremia (3) Sepsis (4) UTI (urinary tract infection) (5) Stage 4 decubitus ulcer (6) Acute on chronic respiratory failure (7) Chronic vegetative state (8) Severe protein-calorie malnutrition Assessment Azotemia and hypernatremia indicative of severe dehydration and free water deficit Acute on chronic respiratory failure, on mechanical ventilation Severe underlying anemia Sepsis Stage IV decubitus Idiopathic obstructive hydrocephalus, history of intracranial hemorrhage Diabetes mellitus Parkinson's disease, dementia Protein calorie malnutrition Plan April 03: Labs reviewed. Serum potassium 5.4. Appears to be hemolysis. 30 g Kayexalate given. Continue to monitor renal parameters and electrolytes. Leukocytosis improved nevertheless persists. April 02: Labs reviewed. Serum creatinine normalized. Electrolytes within normal limit. Continue per current management. Patient remains full code. April 01: Labs reviewed. Serum creatinine up to 1.5 and potassium 5.2. Patient had episodes of hypotension. Will give fluid challenge. Continue to monitor renal parameters. Urine studies ordered. March 31: No labs done today. Remains full code. Trach and vent. Continue per consultants. March 30: Labs reviewed. Trach to vent. Remains full code. Labs reviewed. Renal parameters stable. March 29: Labs reviewed. Renal parameters stable. Continue per consultants. March 28: Labs reviewed. Stable from renal standpoint of view. March 27: Medication list reviewed. Labs reviewed. Stable from renal standpoint of view. March 26: Patient remains stable from renal standpoint of view. Labs and medication list reviewed. March 25: Labs reviewed. Renal parameters stable. Continue per consultants. March 24: Labs reviewed. Renal parameters stable. Continue per consultants. March 23: Labs reviewed. Renal parameters are stable. Continue per consultants. March 22: Labs reviewed. Serum sodium 151. D5W IV given. Continue per consultants. March 21: Labs reviewed. Renal parameters stable. Continue per consultants. March 20: Labs reviewed. Serum sodium lower 147. Serum calcium stable. Continue as is. March 19: Labs reviewed. Serum sodium unchanged at 150. Another liter of D5W ordered. Serum calcium stable. Continue as is. March 18: Labs reviewed. Serum sodium 150. 1 L of D5W IV ordered. Serum calcium stable. Continue as is. March 17: Labs reviewed. Renal parameters stable. Continue to watch serum calcium. Continue per consultants. March 16: Labs reviewed. Serum calcium stable. Medication list reviewed. Abnormal electrolyte addressed. Continue current management. March 15: Labs reviewed. Serum calcium lowering. Abnormal electrolytes addressed. Continue per consultants. March 14: Labs reviewed. Status quo. Serum calcium lowering. Magnesium and potassium supplement ordered. Continue per current treatment plan. March 13: 1 dose of pamidronate 60 mg for high calcium IV ordered. Labs reviewed. Medication list reviewed. Electrolytes improving. Hemoglobin higher after transfusion. Nasal calcitonin initiated March 12: D5W at 75 cc an hour Monitor electrolytes Monitor hemoglobin hematocrit Gastric support Consider transfusion Continue per orders Parameters for blood pressure medication Antibiotics per ID Subjective ROS Limited/Unobtainable: Yes Objective Objective Last 24 Hour Vital Signs Date Time Temp Pulse Resp B/P (MAP) Pulse Ox O2 Delivery O2 Flow Rate FiO2 04/03/20 13:53 105 150/84 04/03/20 12:00 98.1 105 23 150/84 (106) 99 04/03/20 12:00 Mechanical Ventilator 04/03/20 12:00 35 04/03/20 11:40 104 04/03/20 11:29 109 26 35 04/03/20 08:00 Mechanical Ventilator 04/03/20 08:00 97.0 99 23 126/67 (86) 100 04/03/20 08:00 101 04/03/20 07:18 35 04/03/20 07:08 97 24 35 04/03/20 06:19 98.2 04/03/20 05:08 107 115/61 04/03/20 04:11 35 04/03/20 04:00 100 04/03/20 04:00 Mechanical Ventilator 04/03/20 04:00 98.2 100 22 111/67 (82) 100 04/03/20 03:00 98 19 35 04/03/20 00:00 35 04/03/20 00:00 Mechanical Ventilator 04/03/20 00:00 101 04/03/20 00:00 98.1 92 20 101/61 (74) 100 04/02/20 23:00 103 24 35 04/02/20 22:24 107 131/76 04/02/20 20:00 35 04/02/20 20:00 Mechanical Ventilator 04/02/20 20:00 98.4 95 22 93/56 (68) 95 04/02/20 19:54 93 04/02/20 19:37 93 19 35 04/02/20 16:58 98.4 04/02/20 16:00 Mechanical Ventilator 04/02/20 16:00 35 04/02/20 16:00 100.5 121 35 147/86 (106) 93 04/02/20 15:59 103 20 35 04/02/20 15:23 121 Intake and Output 04/02/20 04/03/20 19:00 07:00 Intake Total 1530 ml 930 ml Output Total 850 ml 450 ml Balance 680 ml 480 ml Free Water 80 ml 0 ml IV Total 610 ml 110 ml Tube Feeding 840 ml 770 ml Blood Product 50 ml Output Urine Total 850 ml 450 ml # Bowel Movements 1 2 Current Medications Medications (Trade) Dose Ordered Sig/Zaki Route PRN Reason Start Time Stop Time Status Last Admin Dose Admin Acetaminophen (Tylenol) 650 mg Q6H PRN GT Temp >100.5, Mild Pain 03/11/20 06:30 04/10/20 06:29 04/03/20 05:49 Ascorbic Acid (Vitamin C) 500 mg DAILY GT 04/04/20 09:00 04/27/20 08:59 Calcitonin Mcm[place] (Miacalcin) 1 sprays DAILY NASAL 03/13/20 11:00 06/11/20 10:59 04/03/20 08:14 Dextrose 1,000 ml @ 75 mls/hr [id number] IV 04/03/20 10:00 05/03/20 09:59 04/03/20 09:48 Dextrose (Dextrose 50%) 25 ml Q30M PRN IV Hypoglycemia 03/13/20 23:30 06/11/20 23:29 Dextrose (Dextrose 50%) 50 ml Q30M PRN IV Hypoglycemia 03/13/20 23:30 06/11/20 23:29 Diltiazem HCl (Cardizem Tab) 30 mg EVERY 8 HOURS GT 03/24/20 14:00 04/23/20 13:59 04/03/20 13:53 Diphenhydramine HCl (Benadryl) 25 mg Q8H PRN ORAL Itching 03/14/20 15:00 04/13/20 14:59 03/14/20 15:50 Famotidine (Pepcid) 20 mg BID GT 03/18/20 18:00 06/09/20 08:59 04/03/20 08:14 Insulin Aspart (NovoLOG) Q6HR SUBQ 03/14/20 00:00 06/12/20 00:00 04/03/20 05:07 Multivitamins (Multivitamins) 1 tab DAILY GT 04/04/20 09:00 04/27/20 08:59 Ondansetron HCl (Zofran) 4 mg Q4H PRN IVP Nausea & Vomiting 03/11/20 06:30 04/10/20 06:29 Vancomycin HCl (Vanco pharmacy to dose) 1 ea DAILY PRN MISC Per rx protocol 03/31/20 09:00 04/30/20 08:59 Vancomycin HCl 500 mg/Sodium Chloride 110 ml @ 110 mls/hr Q12H IVPB 03/31/20 23:00 04/05/20 22:59 04/03/20 11:04 Zinc Sulfate (Zinc Sulfate) 220 mg DAILY GT 04/04/20 09:00 04/07/20 09:00 Laboratory Tests 04/02/20 16:30: POC Whole Blood Glucose 160H 04/03/20 00:03: POC Whole Blood Glucose 156H 04/03/20 03:04: White Blood Count 19.3H, Red Blood Count 2.96L, Hemoglobin 8.0L, Hematocrit 24.6L, Mean Corpuscular Volume 83, Mean Corpuscular Hemoglobin 27.1, Mean Corpuscular Hemoglobin Concent 32.6, Red Cell Distribution Width 19.2H, Platelet Count 466H, Mean Platelet Volume 6.4L, Neutrophils (%) (Auto) , Lymphocytes (%) (Auto) , Monocytes (%) (Auto) , Eosinophils (%) (Auto) , Basophils (%) (Auto) , Differential Total Cells Counted 100, Neutrophils % (Manual) 65, Lymphocytes % (Manual) 8L, Monocytes % (Manual) 12H, Eosinophils % (Manual) 13H, Basophils % (Manual) 0, Myelocytes % 1H, Band Neutrophils 1, Platelet Estimate Adequate, Platelet Morphology Normal, Polychromasia 1+, Hypochromasia 1+, Anisocytosis 2+, Sodium Level 148H, Potassium Level 5.4H, Chloride Level 112H, Carbon Dioxide Level 31, Blood Urea Nitrogen 47H, Creatinine 0.9, Estimat Glomerular Filtration Rate > 60, Glucose Level 139H, Calcium Level 9.5 04/03/20 05:01: POC Whole Blood Glucose 165H 04/03/20 10:00: Vancomycin Level Trough 16.3H 04/03/20 10:55: POC Whole Blood Glucose 132H Height (Feet): 5 Height (Inches): 5.00 Weight (Pounds): 147 General Appearance: no apparent distress EENT: other - Trach to vent Cardiovascular: tachycardia Respiratory/Chest: decreased breath sounds Abdomen: distended Mathew Huntley MD Apr 03, 2020 14:05
--- NOTE | 2020-04-03 14:54 | NUR ---
CASE MANAGEMENT:REVIEW 04/03/20 SI;SEPSIS. BACTEREMIA. TRACH/VENT DEPENDENT. 98.1 109 23 150/84 99% TRACH/VENT FIO2 35% WBC+19.3 H/H-8.0/24.6 K+5.4 IS;IVF NS BOLUS VANCOMYCIN IV Q12 ZINC GT QD CARDIZEM GT Q8HR PEPCID GT BID : SDU DCP: FROM [facility] PLAN: MONITOR WBC'S
--- NOTE | 2020-04-03 15:35 | NUR ---
Pressroom Supervisor: left a message to dr mittal regarding family members request to call her regarding patients condition. telephone number for the family member was provided.
[2020-04-03 16:00] VITALS: BP 146/78
--- NOTE | 2020-04-03 16:34 | Surgery Progress Note ---
Surgery Progress Note Subjective Additional Comments leukocytosis trending down k 5.4 exam stable comfortable on support Objective Last 24 Hour Vital Signs Date Time Temp Pulse Resp B/P (MAP) Pulse Ox O2 Delivery O2 Flow Rate FiO2 04/03/20 16:00 Mechanical Ventilator 04/03/20 16:00 35 04/03/20 16:00 97.9 105 24 146/78 (100) 100 04/03/20 15:15 106 27 35 04/03/20 13:53 105 150/84 04/03/20 12:00 98.1 105 23 150/84 (106) 99 04/03/20 12:00 Mechanical Ventilator 04/03/20 12:00 35 04/03/20 11:40 104 04/03/20 11:29 109 26 35 04/03/20 08:00 Mechanical Ventilator 04/03/20 08:00 97.0 99 23 126/67 (86) 100 04/03/20 08:00 101 04/03/20 07:18 35 04/03/20 07:08 97 24 35 04/03/20 06:19 98.2 04/03/20 05:08 107 115/61 04/03/20 04:11 35 04/03/20 04:00 100 04/03/20 04:00 Mechanical Ventilator 04/03/20 04:00 98.2 100 22 111/67 (82) 100 04/03/20 03:00 98 19 35 04/03/20 00:00 35 04/03/20 00:00 Mechanical Ventilator 04/03/20 00:00 101 04/03/20 00:00 98.1 92 20 101/61 (74) 100 04/02/20 23:00 103 24 35 04/02/20 22:24 107 131/76 04/02/20 20:00 35 04/02/20 20:00 Mechanical Ventilator 04/02/20 20:00 98.4 95 22 93/56 (68) 95 04/02/20 19:54 93 04/02/20 19:37 93 19 35 04/02/20 16:58 98.4 I&O Intake and Output 04/02/20 04/03/20 19:00 07:00 Intake Total 1530 ml 930 ml Output Total 850 ml 450 ml Balance 680 ml 480 ml Free Water 80 ml 0 ml IV Total 610 ml 110 ml Tube Feeding 840 ml 770 ml Blood Product 50 ml Output Urine Total 850 ml 450 ml # Bowel Movements 1 2 Dressing: saturated Cardiovascular: RSR Respiratory: decreased breath sounds Abdomen: non-tender, present bowel sounds Extremities: no edema, no tenderness, no cyanosis Laboratory Tests Test 04/03/20 00:03 04/03/20 03:04 04/03/20 05:01 04/03/20 10:00 POC Whole Blood Glucose 156 MG/DL (74-106) H 165 MG/DL (74-106) H White Blood Count 19.3 K/UL (4.8-10.8) H Red Blood Count 2.96 M/UL (4.20-5.40) L Hemoglobin 8.0 G/DL (12.0-16.0) L Hematocrit 24.6 % (37.0-47.0) L Mean Corpuscular Volume 83 FL (80-99) Mean Corpuscular Hemoglobin 27.1 PG (27.0-31.0) Mean Corpuscular Hemoglobin Concent 32.6 G/DL (32.0-36.0) Red Cell Distribution Width 19.2 % (11.6-14.8) H Platelet Count 466 K/UL (150-450) H Mean Platelet Volume 6.4 FL (6.5-10.1) L Neutrophils (%) (Auto) % (45.0-75.0) Lymphocytes (%) (Auto) % (20.0-45.0) Monocytes (%) (Auto) % (1.0-10.0) Eosinophils (%) (Auto) % (0.0-3.0) Basophils (%) (Auto) % (0.0-2.0) Differential Total Cells Counted 100 Neutrophils % (Manual) 65 % (45-75) Lymphocytes % (Manual) 8 % (20-45) L Monocytes % (Manual) 12 % (1-10) H Eosinophils % (Manual) 13 % (0-3) H Basophils % (Manual) 0 % (0-2) Myelocytes % 1 % (0-0) H Band Neutrophils 1 % (0-8) Platelet Estimate Adequate Platelet Morphology Normal Polychromasia 1+ Hypochromasia 1+ Anisocytosis 2+ Sodium Level 148 MMOL/L (136-145) H Potassium Level 5.4 MMOL/L (3.5-5.1) H Chloride Level 112 MMOL/L (98-107) H Carbon Dioxide Level 31 MMOL/L (21-32) Blood Urea Nitrogen 47 mg/dL (7-18) H Creatinine 0.9 MG/DL (0.55-1.30) Estimat Glomerular Filtration Rate > 60 mL/min (>60) Glucose Level 139 MG/DL (74-106) H Calcium Level 9.5 MG/DL (8.5-10.1) Vancomycin Level Trough 16.3 ug/mL (5.0-12.0) H Test 04/03/20 10:55 POC Whole Blood Glucose 132 MG/DL (74-106) H Plan Problems: (1) Hypernatremia (2) Sepsis (3) UTI (urinary tract infection) (4) Stage 4 decubitus ulcer Assessment & Plan: Pt presented with trach,contractures, multiple Pressure injuries in various stages.Skin assessed under collar of trach and no skin breakdown evident. Full thickness Sacral Pressure injury with undermining clockwise 6-9o'clock.Wound is irregular shaped.Base of wound is 95% granular,5% slough at undermined borders.Small area of bone exposure noted at base of wound. Small amt serosanguineous exudate noted. No odor noted. An area of slough noted along borders. Edges are otherwise adherent and flat to base of wound with surrounding dry, darker skin tone.(L)11.2cm x (W)-8.7cm x(D)1.6cm ,undermining c lockwise 6-9o'clock by 1.8cm @8o'clock. Partial thickness Pressure injury noted to R ischium. Base of wound is moist ,viable with surrounding shearing and non-blanchable erythema.(L)6.5cm x (W)4.5cm. Partial thickness Pressure injury L Ischium(L)1.2cm x (W)1.5cm. Base of wound is moist and viable with surrounding non-blanchable erythema with additional shearing. Resolving Pressure Injury medial L Knee. Base of wound is pink and dry . Resolving Pressure injury medial R knee. Dry pink epithelial with scattered moist, granular areas within base of wound.No odor or exudate noted.(L)4.3cm x (W)2.6cm. DTPI L lateral Malleolus(L)2.5cm x (W)3.5cm.Base of Pressure injury is indurated and maroon in colour. Non-Blanchable erythema periwound. DTPI L achilles extending into Plantar aspect of L heel(L)9.7cm x (W)10.4cm. Base of Pressure injury is black at achilles area with scattered purpuric areas, and is otherwise maroon and indurated. Resolving Pressure injury medial R Malleolus. [place] epithelial at base of wound. Stable dry eschar noted to R Hallux (L)1.2cm x (W01.3cm. Periwound skin tone is darker without erythema or induration. Tx.Plan: Cleanse Sacral wound with Saline. Loosely pack with Therahoney impregnated Kerlix(Attention to undermined area). Apply Moisture Barrier Periwound. Cover with Optifoam drsg. Change Daily and prn. Apply Moisture Barrier Paste to R and L Ischial wounds. Cover each site with Optifoam drsg. Change every 3 days and prn. Apply Cavilon Skin Barrier to medial aspects of R and L Knee. Cover each wound with Optifoam drsg.Change every 7 days and prn. Apply Cavilon Skin Barrier to R Hallux, R Heel, R and L Malleoli, and Both heels. Cover each affected area with Optifoam drsgs. Change drsgs every 7 days and prn. Reposition at least every [address] tolerated[address] Pillow between Knees. Off-load heels with Pillow. CT noted. osteo in sacrum cont abx osteo chronic will monitor and asses if debridement needed ABDOMEN: Liver: Unremarkable. No mass. Gallbladder and bile ducts: Unremarkable. No calcified stones. No ductal dilation. Pancreas: Unremarkable. No mass. No ductal dilation. Spleen: Spleen is small. Adrenals: Unremarkable. No mass. Kidneys and ureters: Renal cysts and subcentimeter low-attenuation foci, too small to characterize. No hydronephrosis. Stomach and bowel: Unremarkable. No obstruction. No mucosal thickening. PELVIS: Appendix: No findings to suggest acute appendicitis. Bladder: Bladder wall thickening. Foci of gas in the bladder. Correlate for recent instrumentation versus cystitis. Reproductive: Unremarkable as visualized. ABDOMEN and PELVIS: Intraperitoneal space: Unremarkable. No free air. No significant fluid collection. Bones/joints: Sacrococcygeal decubitus ulcers with associated osteomyelitis. There is some underlying bone thinning and sclerosis in the distal sacrum and coccyx underlying the decubitus ulcers. No acute fracture. No dislocation. Soft tissues: Unremarkable. Vasculature: Moderate plaque abdominal aorta and branches. No abdominal aortic aneurysm. Lymph nodes: Unremarkable. No enlarged lymph nodes. Tubes, lines and devices: Gastrostomy tube within the gastric body. IMPRESSION: 1. Sacrococcygeal decubitus ulcers with associated osteomyelitis. 2. Small left pleural effusion. Left lower lobe atelectasis. 3. Bladder wall thickening. Foci of gas in the bladder. Correlate for recent instrumentation versus cystitis. DAILY ESTIMATED NEEDS: Needs based on Advanced wound, critical care, underweight, [employer] TF/ 45.5kg 30-40 kcals/kg 0414-5269 total kcals 1.5-2 g protein/kg 68-91 g total protein 30-40 mL/kg 3369-2126 total fluid mLs NUTRITION DIAGNOSIS: Increased kcal/prot needs R/T underweight status, wound healing as evidenced by pt @83% IBW w/ underweight BMI of 17.2, admitted w/ multiple wounds, including stage 4 sacral wound. CURRENT TF:Glucerna 1.2 @ 45ml/hr x 24 hrs ENTERAL NUTRITION RECOMMENDATIONS: Glucerna 1.2 @ 60ml/hr x 24 hrs to provide 1440ml, 1728kcal, 86g prot, 1159ml free water * Increase goal rate to 60ml/hr x 24 hrs to meet 100% est kcal/prot needs -> 1.9g prot/kg * HOB over 30 degrees/ water flush per MD * add Shen BID ADDITIONAL RECOMMENDATIONS: * Per SNF: HT=64" and BE=012# vs EMR wt of 147lbs -> rec daily calibrated bedscale wt * Wound healing: TF rec @ goal will provide 100% RDI Vit C 500mg BID, ZnSO4 220gm QD x 10 days Shen BID via PEG * Monitor BGs, consider NISS: h/o DM * Monitor lytes, replete as needed (5) Chronic respiratory failure requiring continuous mechanical ventilation through tracheostomy (6) History of intracranial hemorrhage (7) Idiopathic obstructive hydrocephalus (8) Gout (9) Diabetes mellitus (10) Parkinson's disease dementia (11) Acute on chronic respiratory failure (12) Chronic vegetative state (13) Severe protein-calorie malnutrition Assessment & Plan: DAILY ESTIMATED NEEDS: Needs based on Advanced wound, critical care, underweight, [employer] TF/ 45.5kg 30-40 kcals/kg 4977-1931 total kcals 1.5-2 g protein/kg 68-91 g total protein 30-40 mL/kg 4999-0208 total fluid mLs NUTRITION DIAGNOSIS: Increased kcal/prot needs R/T underweight status, wound healing as evidenced by pt @83% IBW w/ underweight BMI of 17.2, admitted w/ multiple wounds, including stage 4 sacral wound. CURRENT TF:Glucerna 1.2 @ 60ml/hr x 24 hrs ENTERAL NUTRITION RECOMMENDATIONS: Glucerna 1.2 @ 60ml/hr x 24 hrs to provide 1440ml, 1728kcal, 86g prot, 1159ml free water * Maintain current TF rate as tolerated to meet 100% est kcal/prot needs -> 1.9g prot/kg. * HOB over 30 degrees/ water flush per MD * add Shen BID ADDITIONAL RECOMMENDATIONS: * Per SNF: HT=64" and HA=486# vs EMR wt of 147lbs -> Recalibrate bed scale for accurate CBW * Wound healing: TF rec @ goal will provide 100% RDI add Vit C 500mg BID, continue ZnSO4 220gm QD x 10 days Shen BID via PEG * Monitor BGs, consider NISS: h/o DM -> NISS now added * Increase water flushes for elevated Na (14) Hypercalcemia (15) Staphylococcus aureus bacteremia Assessment & Plan: unlikely related to wound checking often to ensure not worsening good local care being provided cont abx There is bilateral mostly upper lobe centrilobular emphysema. Mosaic attenuation pattern is seen throughout the bilateral upper lobes. There is consolidation and atelectasis of most of the left lower lobe. A few groundglass opacities are seen in the inferior left upper lobe. There is some compressive atelectasis at the right lung base with elevation of the right hemidiaphragm. There is a subpleural 8 mm nodular opacity in the right middle lobe. On recent abdomen pelvis CT scan, this demonstrated a cavity. The cavity is not evident currently There is a tracheostomy. The pleural spaces are clear. The heart size is normal. No pericardial effusion. No mediastinal or hilar mass or adenopathy. The ascending thoracic aorta is mildly ectatic, measuring up to 3.8 cm in diameter. The included portion of the thyroid is unremarkable. No axillary or chest wall mass or adenopathy demonstrated. There is smooth thoracic kyphosis without focal compression abnormality. The bones are unremarkable. Included upper abdominal anatomy demonstrates contrast in the colon from prior CT of the abdomen. There is a upper pole right renal cyst Impression: Centrilobular emphysema seen throughout both lungs with with an upper lobe predominance, indicating extensive COPD changes Mosaic attenuation pattern in the upper lobes probably related to COPD, although this is a nonspecific finding Dense consolidation and atelectasis of much of the left lower lobe. This could represent pneumonia. Groundglass opacities in the inferior left upper lobe. These could represent areas of acute inflammation, or could represent post inflammatory changes. 8mm nodule in the right middle lobe, also described on prior CT scan. This previously demonstrated a cavity. Cavitation currently not evident. Differential considerations include neoplasm, acute or chronic inflammatory lesion. Recommend at a minimum follow-up CT scan in 6 months Tracheostomy Kyphosis Right upper pole renal cyst Chris Hunter Apr 03, 2020 16:34
--- NOTE | 2020-04-03 18:53 | NUR ---
NURSE NOTES: Received report from ADILENE Zelaya. Pt is sleeping in bed in semi- horowitz's position. Pt has no signs of respiratory distress. o2 at- 100%. No fever noted -98.1 . Pt attached to trach to vent with settings as ordered. With Left hand g22 running d5w right now Na- 148. started from previous shift. IV site still patent and intact. No facial grimacing noted. Pt is sleeping comfortably in bed. With Gtube site intact and patent flushing. Bed in lowest position, Call light within reach. Continue to plan of care.
--- NOTE | 2020-04-03 18:54 | NUR ---
NURSE HAND-OFF REPORT: Important Events on Shift:stable Patient Status: fc Diet: tube feeds, glucerna 1.2 Pending Orders: [] Pending Results/Labs:[] Pending MD notification:[] Latest Vital Signs: Temperature 97.9 , Pulse 101 , B/P 146 /78 , Respiratory Rate 24 , O2 SAT 100 , Mechanical Ventilator, O2 Flow Rate . Vital Sign Comment: stable EKG Rhythm: Sinus Tachycardia Rhythm change?: N MD Notified?: N -Dr. Hill MARQUES Response: Latest [place] Fall Score: 70 Fall Risk: High Risk Safety Measures: Call light Within Reach, Bed Alarm Zone 2, Side Rails Side Rails x3, Bed position Low and Locked. Fall Precautions: Yellow Socks Yellow Gown Door Sign Patient Fall Education Report given to princess mcmullen.
--- NOTE | 2020-04-03 19:37 | NUR ---
RESPIRATORY NOTE: Received pt on AC VC 16, 400VT, 35%, PEEP +5. Pt is trach-dependent w/ a cuffed, Portex 7 tube. Pt flat effect/obtunded. B/S estrella. rhonchi, sxn small amounts of thick/thin, pale-yellow secretions. vent plugged into red outlet, ambubag at bedside. Pt in no apparent distress at this time. Will continue plan of care.
--- NOTE | 2020-04-03 19:57 | General Progress Note ---
Subjective Allergies: Coded Allergies: No Known Allergies (Unverified , 03/11/20) Subjective above noted tolerating TF non communicative Objective Last 24 Hour Vital Signs Date Time Temp Pulse Resp B/P (MAP) Pulse Ox O2 Delivery O2 Flow Rate FiO2 04/03/20 19:34 113 24 35 04/03/20 16:00 Mechanical Ventilator 04/03/20 16:00 35 04/03/20 16:00 101 04/03/20 16:00 97.9 105 24 146/78 (100) 100 04/03/20 15:15 106 27 35 04/03/20 13:53 105 150/84 04/03/20 12:00 98.1 105 23 150/84 (106) 99 04/03/20 12:00 Mechanical Ventilator 04/03/20 12:00 35 04/03/20 11:40 104 04/03/20 11:29 109 26 35 04/03/20 08:00 Mechanical Ventilator 04/03/20 08:00 97.0 99 23 126/67 (86) 100 04/03/20 08:00 101 04/03/20 07:18 35 04/03/20 07:08 97 24 35 04/03/20 06:19 98.2 04/03/20 05:08 107 115/61 04/03/20 04:11 35 04/03/20 04:00 100 04/03/20 04:00 Mechanical Ventilator 04/03/20 04:00 98.2 100 22 111/67 (82) 100 04/03/20 03:00 98 19 35 04/03/20 00:00 35 04/03/20 00:00 Mechanical Ventilator 04/03/20 00:00 101 04/03/20 00:00 98.1 92 20 101/61 (74) 100 04/02/20 23:00 103 24 35 04/02/20 22:24 107 131/76 04/02/20 20:00 35 04/02/20 20:00 Mechanical Ventilator 04/02/20 20:00 98.4 95 22 93/56 (68) 95 Intake and Output 04/02/20 04/03/20 19:00 07:00 Intake Total 1530 ml 930 ml Output Total 850 ml 450 ml Balance 680 ml 480 ml Free Water 80 ml 0 ml IV Total 610 ml 110 ml Tube Feeding 840 ml 770 ml Blood Product 50 ml Output Urine Total 850 ml 450 ml # Bowel Movements 1 2 Laboratory Tests 04/03/20 00:03: POC Whole Blood Glucose 156H 04/03/20 03:04: White Blood Count 19.3H, Red Blood Count 2.96L, Hemoglobin 8.0L, Hematocrit 24.6L, Mean Corpuscular Volume 83, Mean Corpuscular Hemoglobin 27.1, Mean Corpuscular Hemoglobin Concent 32.6, Red Cell Distribution Width 19.2H, Platelet Count 466H, Mean Platelet Volume 6.4L, Neutrophils (%) (Auto) , Lymphocytes (%) (Auto) , Monocytes (%) (Auto) , Eosinophils (%) (Auto) , Basophils (%) (Auto) , Differential Total Cells Counted 100, Neutrophils % (Manual) 65, Lymphocytes % (Manual) 8L, Monocytes % (Manual) 12H, Eosinophils % (Manual) 13H, Basophils % (Manual) 0, Myelocytes % 1H, Band Neutrophils 1, Platelet Estimate Adequate, Platelet Morphology Normal, Polychromasia 1+, Hypochromasia 1+, Anisocytosis 2+, Sodium Level 148H, Potassium Level 5.4H, Chloride Level 112H, Carbon Dioxide Level 31, Blood Urea Nitrogen 47H, Creatinine 0.9, Estimat Glomerular Filtration Rate > 60, Glucose Level 139H, Calcium Level 9.5 04/03/20 05:01: POC Whole Blood Glucose 165H 04/03/20 10:00: Vancomycin Level Trough 16.3H 04/03/20 10:55: POC Whole Blood Glucose 132H 04/03/20 17:04: POC Whole Blood Glucose 155H Height (Feet): 5 Height (Inches): 5.00 Weight (Pounds): 147 Objective elderly woman NCAT supple, trach CTA RR abd soft, (+)GT no edema (+) multiple decubs Assessment/Plan Assessment/Plan: Assessment History of intracranial hemorrhage, s/p gastrostomy, OB (+) stools status post tracheostomy, chronic obstructive pulmonary disease, type 2 diabetes, Parkinson's, gout, glaucoma, history of stage IV sacral decubitus ulceration, gout Fever Low albumin Recommendations - continue TF - GT care - elevate HOB - Monitor H&H - no GI w/u per family decision - re check albumin and prealbumin periodically Deanne Rivera MD Apr 03, 2020 19:57
[2020-04-03 20:00] VITALS: BP 135/73
[2020-04-04] VITALS: BP 120/65
--- NOTE | 2020-04-04 01:43 | NUR ---
NURSE NOTES: Sponge bath given, cleaned pt, no bleeding noted. Suctioned Oral secretions. No pain noted. Continue to plan of care. Bed in lowest position. Call light within reach.
[2020-04-04 04:00] VITALS: BP 122/57
--- NOTE | 2020-04-04 04:57 | NUR ---
NURSE NOTES: Seen pt in bed in comfortable and calm manner, not in apparent respiratory distress. o2 sat- 98%. No pain noted. No bleeding noted. No fever noted. Bed in lowest position, call light within reach. Continue to plan of care.
[2020-04-04 05:04] LABS: HEMATOCRIT 20.2 % (37.0-47.0); MEAN CORPUSCULAR VOLUME 83 FL (80-99); PLATELET COUNT 411 K/UL (150-450); RED BLOOD COUNT 2.43 M/UL (4.20-5.40); RED CELL DISTRIBUTION WIDTH 18.8 % (11.6-14.8); WHITE BLOOD COUNT 19.7 K/UL (4.8-10.8)
[2020-04-04] MEDS: NovoLOG Insulin Flexpen SUBQ SCH ×4 (05:14→23:28)
[2020-04-04] MEDS: dilTIAZem HCl 30mg tab GT SCH ×3 (05:15→21:58)
[2020-04-04 05:27] LABS: HEMOGLOBIN 6.6 G/DL (12.0-16.0)
[2020-04-04 05:28] LABS: ALBUMIN 1.4 G/DL (3.4-5.0); ALBUMIN/GLOBULIN RATIO 0.3 (1.0-2.7); BILIRUBIN,TOTAL 0.2 MG/DL (0.2-1.0); CALCIUM 8.4 MG/DL (8.5-10.1); CREATININE 1.3 MG/DL (0.55-1.30); PHOSPHORUS 4.4 MG/DL (2.5-4.9); POTASSIUM 4.3 MMOL/L (3.5-5.1)
--- NOTE | 2020-04-04 05:51 | NUR ---
NURSE NOTES: Noted hgb- 6.6, Na-148 pt has no active bleeding, Called Dr. Barajas awaiting for response. Will Continue to monitor pt.
--- NOTE | 2020-04-04 06:07 | NUR ---
NURSE NOTES: Spoke to Dr. Lutz regarding Hgb -6.6, Consent previously signed. Ordered PRBC x 1. For Na- 148, no new orders at this time as pt will gonna get PRBC. Ordered and carried out.
--- NOTE | 2020-04-04 06:53 | NUR ---
NURSE HAND-OFF REPORT: Important Events on Shift: Hgb-6.6 Dr. dahl aware, Na- 148 .Dr dahl aware Patient Status: Guarding Diet: GTF Pending Orders: None Pending Results/Labs: None Pending MD notification: None Latest Vital Signs: Temperature 97.2 , Pulse 104 , B/P 110 /62 , Respiratory Rate 18 , O2 SAT 100 , Mechanical Ventilator, O2 Flow Rate . Vital Sign Comment: WNL EKG Rhythm: Sinus Rhythm Rhythm change?: N MD Notified?: N -Dr. Hill MARQUES Response: Latest Ochoa Fall Score: 70 Fall Risk: High Risk Safety Measures: Call light Within Reach, Bed Alarm Zone 2, Side Rails Side Rails x3, Bed position Low and Locked. Fall Precautions: Yellow Socks Yellow Gown Door Sign Patient Fall Education Report given to [Baljit, RN].
--- NOTE | 2020-04-04 07:00 | NUR ---
NURSE NOTES: Received report from Princess HEAD.
[2020-04-04 08:00] VITALS: BP 145/71
--- NOTE | 2020-04-04 08:20 | NUR ---
NURSE NOTES: Pt. in bed, obtunded. Occasionally opens eyes. No sign of distress. Mech. vent dependent with setting AC16/VT400/Fi O2 at 100%/P5. No grimacing noted. HOB elevated at all times. On GTF Glucerna 1.2 at 60cc/hr cont. F/C in placed patent/intact draining yellow colored urine with sediments noted. IV site at left hand #22g. and left FA#22g. in placed patent/intcact. Bed in low position, locked. Call light within reach. Will cont. to monitor.
--- NOTE | 2020-04-04 08:22 | NUR ---
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 CURRENT TF:Glucerna 1.2 @ 70ml/hr x 24 hrs (101g pro-provides 2g/kg pro) ENTERAL NUTRITION RECOMMENDATIONS: Glucerna 1.2 @ 65ml/hr x 24 hrs to provide 1560ml, 1872kcal, 94g prot, 1256ml free water * LOWER goal rate to 65ml/hr x 24 hrs- meets 100% est kcal/prot needs * HOB over 30 degrees * INCREASE water flushes: 120ml q 6hrs * add Shen BID * Beneprotein not avaialble. Monitor K and phos, w/ continued elevated levels, rec TF change to Nepro @ goal rate of 45ml/hr x 24 hrs to provide 1080ml, 1944kcal, 87g prot ADDITIONAL RECOMMENDATIONS: * Per SNF: HT=64" and HL=302# vs EMR wt of 147lbs -> Recalibrate bed scale for accurate CBW * Wound healing: TF rec @ goal will provide 100% RDI Continue Vit C, ZnSO4, and Shen BID * Monitor BGs, consider NISS: h/o DM -> NISS now added * Monitor lytes, need for Nepro (k, phos wnl) * Increase water flushes vs added D5: elevated Na and BUN
--- NOTE | 2020-04-04 08:35 | Infectious Diseases Prog Note ---
Assessment/Plan 74yo F with: Febrile, persistent - most likely 2/2 worsening sacral decub, all other w/u neg Leukocytosis, persistent ; increasing Thrombocytosis, increasing >> improving Sepsis Left lower lung infiltrate Acute on chronic resp failure SP trach MRSA bacteremia DEBBIE cancelled as family refused RML cavitation, not seen on CT chest 03/11 BCx +MRSA Resp cx +PsA (S-Zosyn, I-merissa and cefepime) UCx 30-40k ACB (colonizer) COVID rapid Ag neg CXR: Midline tracheostomy. Small left pleural effusion. Hyperinflation with flattening of the diaphragms and emphysema, consistent with COPD. No lobar infiltrate. 03/12 BCx NTD 03/13 C.dif neg 03/13 BCx NTD 03/14 BCx NTD 03/14 CT A/P: 1. Sacrococcygeal decubitus ulcers with associated osteomyelitis. 2. Small left pleural effusion. Left lower lobe atelectasis. 3. Bladder wall thickening. Foci of gas in the bladder. Correlate for recent instrumentation versus cystitis. Lung bases: Small nodular focus of cavitation in the right middle lobe. This may be secondary to infection. Recommend continued follow-up. Emphysematous changes in the lung bases. 1.2 cm nodular focus with some central cavitation in the right middle lobe. Pleural space: Small left pleural effusion. Left lower lobe atelectasis. 03/14 TTE: No vegetations, thickened valves 03/17 CXR: 1. Unchanged tracheostomy. 2. Mildly more pronounced linear interstitial prominence could represent atypical infection or interstitial pulmonary edema in the proper clinical context. 3. Unchanged hyperinflation. 4. Unchanged mild retrocardiac atelectasis without or with consolidation. 03/20 BCx NTD 03/20 CT chest: Centrilobular emphysema seen throughout both lungs with with an upper lobe predominance, indicating extensive COPD changes. Mosaic attenuation pattern in the upper lobes probably related to COPD, although this is a nonspecific finding. Dense consolidation and atelectasis of much of the left lower lobe. This could represent pneumonia. Groundglass opacities in the inferior left upper lobe. These could represent areas of acute inflammation, or could represent post inflammatory changes. 8mm nodule in the right middle lobe, also described on prior CT scan. This previously demonstrated a cavity. Cavitation currently not evident. Differential considerations include neoplasm, acute or chronic inflammatory lesion. Recommend at a minimum follow-up CT scan in 6 months 03/21 Resp cx +Serratia and PsA (S-Zosyn) 03/21 SPC changed 03/22 UA/UCx +yeast 03/27 Indium scan: Limited exam, as described. No definite abnormality to explain stated clinical history of leukocytosis 04/01 BCx NTD 04/02 UA 20-30 WBC 04/02 Resp cx p R/o C.dif 03/29 C.dif neg Worsening sacral decub ulceration, likely cause of ongoing low-grade fevers BUE and BLE neg for DVT 03/21 MRSA nares positive VDRF S/p trach/PEG Bed bound Sacral decub ulceration w/ underlying OM Plan: Cont Vancomycin IV #5 (abx d#11) for MRSA bacteremia - Duration 6 weeks given inability to r/o endocarditis without DEBBIE, end date = 04/21/20 Trend acute anemia and AMARJIT F/u BCx 04/01, Resp cx 04/02 Trend WBC Trend temp curve Appreciate Wound Care/Surgery input on worsening sacral decub - this is likely the cause of ongoing fevers Agree with hospice evaluation if family decides 03/31 SP linezolid #8 03/30 SP levofloxacin #7 for ACB in UCx 03/28 SP Zosyn #10 for pna 03/22 Sp IV vancomycin #11 03/14 SP cefepime #4 Monitor CBC/CMP Monitor temp curve, hemodynamics Monitor resp status repeat cultures D/w RN and Cards Dr. Alejandre Thank you for this consult. [facility] will continue to follow. Subjective Allergies: Coded Allergies: No Known Allergies (Unverified , 03/11/20) AF, though now with temp to 100.8 WBC 19, stable Hg down to 6.6 and Cr up to 1.3 NAD on vent Objective Last 24 Hour Vital Signs Date Time Temp Pulse Resp B/P (MAP) Pulse Ox O2 Delivery O2 Flow Rate FiO2 04/04/20 05:15 104 110/62 04/04/20 04:00 96 04/04/20 04:00 Mechanical Ventilator 04/04/20 04:00 35 04/04/20 04:00 97.2 95 18 122/57 (78) 100 04/04/20 02:59 101 20 35 04/04/20 00:00 102 04/04/20 00:00 Mechanical Ventilator 04/04/20 00:00 98.8 100 21 120/65 (83) 100 04/03/20 22:57 105 19 35 04/03/20 21:21 114 138/68 04/03/20 20:00 Mechanical Ventilator 04/03/20 20:00 98.8 115 23 135/73 (93) 98 04/03/20 20:00 35 04/03/20 20:00 111 04/03/20 19:34 113 24 35 04/03/20 16:00 Mechanical Ventilator 04/03/20 16:00 35 04/03/20 16:00 101 04/03/20 16:00 97.9 105 24 146/78 (100) 100 04/03/20 15:15 106 27 35 04/03/20 13:53 105 150/84 04/03/20 12:00 98.1 105 23 150/84 (106) 99 04/03/20 12:00 Mechanical Ventilator 04/03/20 12:00 35 04/03/20 11:40 104 04/03/20 11:29 109 26 35 Height (Feet): 5 Height (Inches): 5.00 Weight (Pounds): 147 Gen: NAD in bed HEENT: NCAT, trach + secretions CV: RRR Pulm: CTAB Abd: Soft, NTND, +PEG +SPC Ext: No c/c/e Skin: Stage 4 sacral decub ulceration - larger than on admission but clean Neuro: Awake, not interactive Microbiology Date/Time Source Procedure Growth Status 04/02/20 15:30 Sputum Gram Stain - Final Resulted 04/02/20 15:30 Sputum Sputum Culture Pending Resulted 04/01/20 18:50 Blood Blood Culture - Preliminary NO GROWTH AFTER 24 HOURS Resulted 04/01/20 18:35 Blood Blood Culture - Preliminary NO GROWTH AFTER 24 HOURS Resulted Laboratory Tests Test 04/03/20 10:00 04/03/20 10:55 04/03/20 17:04 04/03/20 22:53 Vancomycin Level Trough 16.3 ug/mL (5.0-12.0) H POC Whole Blood Glucose 132 MG/DL (74-106) H 155 MG/DL (74-106) H 167 MG/DL (74-106) H Test 04/04/20 03:20 04/04/20 05:10 White Blood Count 19.7 K/UL (4.8-10.8) H Red Blood Count 2.43 M/UL (4.20-5.40) L Hemoglobin 6.6 G/DL (12.0-16.0) *L Hematocrit 20.2 % (37.0-47.0) L Mean Corpuscular Volume 83 FL (80-99) Mean Corpuscular Hemoglobin 27.1 PG (27.0-31.0) Mean Corpuscular Hemoglobin Concent 32.6 G/DL (32.0-36.0) Red Cell Distribution Width 18.8 % (11.6-14.8) H Platelet Count 411 K/UL (150-450) Mean Platelet Volume 6.6 FL (6.5-10.1) Neutrophils (%) (Auto) % (45.0-75.0) Lymphocytes (%) (Auto) % (20.0-45.0) Monocytes (%) (Auto) % (1.0-10.0) Eosinophils (%) (Auto) % (0.0-3.0) Basophils (%) (Auto) % (0.0-2.0) Neutrophils % (Manual) Pending Lymphocytes % (Manual) Pending Platelet Estimate Pending Platelet Morphology Pending Erythrocyte Sedimentation Rate 142 MM/HR (0-30) H Sodium Level 148 MMOL/L (136-145) H Potassium Level 4.3 MMOL/L (3.5-5.1) Chloride Level 111 MMOL/L (98-107) H Carbon Dioxide Level 32 MMOL/L (21-32) Anion Gap 5 mmol/L (5-15) Blood Urea Nitrogen 57 mg/dL (7-18) H Creatinine 1.3 MG/DL (0.55-1.30) Estimat Glomerular Filtration Rate 48.8 mL/min (>60) Glucose Level 142 MG/DL (74-106) H Calcium Level 8.4 MG/DL (8.5-10.1) L Phosphorus Level 4.4 MG/DL (2.5-4.9) Magnesium Level 2.2 MG/DL (1.8-2.4) Total Bilirubin 0.2 MG/DL (0.2-1.0) Aspartate Amino Transf (AST/SGOT) 22 U/L (15-37) Alanine Aminotransferase (ALT/SGPT) 45 U/L (12-78) Alkaline Phosphatase 84 U/L (46-116) C-Reactive Protein, Quantitative 14.2 mg/dL (0.00-0.90) H Total Protein 6.7 G/DL (6.4-8.2) Albumin 1.4 G/DL (3.4-5.0) L Globulin 5.3 g/dL Albumin/Globulin Ratio 0.3 (1.0-2.7) L Prealbumin Pending POC Whole Blood Glucose 155 MG/DL (74-106) H Current Medications Medications (Trade) Dose Ordered Sig/Zaki Route PRN Reason Start Time Stop Time Status Last Admin Dose Admin Acetaminophen (Tylenol) 650 mg Q6H PRN GT Temp >100.5, Mild Pain 03/11/20 06:30 04/10/20 06:29 04/03/20 05:49 Ascorbic Acid (Vitamin C) 500 mg DAILY GT 04/04/20 09:00 04/27/20 08:59 Calcitonin [place] (Miacalcin) 1 sprays DAILY NASAL 03/13/20 11:00 06/11/20 10:59 04/03/20 08:14 Dextrose (Dextrose 50%) 25 ml Q30M PRN IV Hypoglycemia 03/13/20 23:30 06/11/20 23:29 Dextrose (Dextrose 50%) 50 ml Q30M PRN IV Hypoglycemia 03/13/20 23:30 06/11/20 23:29 Diltiazem HCl (Cardizem Tab) 30 mg EVERY 8 HOURS GT 03/24/20 14:00 04/23/20 13:59 04/04/20 05:15 Diphenhydramine HCl (Benadryl) 25 mg Q8H PRN ORAL Itching 03/14/20 15:00 04/13/20 14:59 03/14/20 15:50 Famotidine (Pepcid) 20 mg BID GT 03/18/20 18:00 06/09/20 08:59 04/03/20 17:26 Insulin Aspart (NovoLOG) Q6HR SUBQ 03/14/20 00:00 06/12/20 00:00 04/04/20 05:14 Multivitamins (Multivitamins) 1 tab DAILY GT 04/04/20 09:00 04/27/20 08:59 Ondansetron HCl (Zofran) 4 mg Q4H PRN IVP Nausea & Vomiting 03/11/20 06:30 04/10/20 06:29 Vancomycin HCl (Vanco pharmacy to dose) 1 ea DAILY PRN MISC Per rx protocol 03/31/20 09:00 04/30/20 08:59 Vancomycin HCl 500 mg/Sodium Chloride 110 ml @ 110 mls/hr Q12H IVPB 03/31/20 23:00 04/05/20 22:59 04/03/20 22:55 Zinc Sulfate (Zinc Sulfate) 220 mg DAILY GT 04/04/20 09:00 04/07/20 09:00 Shirley Villegas M.D. Apr 04, 2020 08:35
[2020-04-04] MEDS: Zinc Sulfate 220mg GT SCH (08:51)
[2020-04-04] MEDS: Ascorbic Acid 500mg tab GT SCH (08:52)
[2020-04-04] MEDS: Acetaminophen 650mg/20.3ml GT PRN (11:09)
--- NOTE | 2020-04-04 11:09 | NUR ---
NURSE NOTES: Called blood bank and informed Maxine that I recheck temp before picking up blood but pt. temp now 100.8 from 99.0 will cont. to monitor.
[2020-04-04] MEDS: Vancomycin 500 MG in NS 110 ML IVPB SCH ×2 (11:12→22:04)
[2020-04-04 12:00] VITALS: BP 120/63
--- NOTE | 2020-04-04 12:05 | Pulmonolgy Critical Care Note ---
Critical Care - Asmt/Plan Problems: (1) Acute on chronic respiratory failure (2) Persistent fever (3) Sepsis (4) Staphylococcus aureus bacteremia (5) Chronic respiratory failure requiring continuous mechanical ventilation through tracheostomy (6) Stage 4 decubitus ulcer (7) Diabetes mellitus (8) Parkinson's disease dementia (9) Gout (10) Idiopathic obstructive hydrocephalus (11) Severe protein-calorie malnutrition (12) History of intracranial hemorrhage (13) Chronic vegetative state Assessment/Plan: talked to daughter, Danya Gordillo [phone], she is agreeable to end of life and comfort care. I informed the child welfare social worker to arrange for a family meeting. Respiratory: monitor respiratory rate, adjust FIO2, CXR Cardiac: continue to monitor HR/BP Renal: F/U I&O, check electrolytes Infectious Disease: check cultures, continue antibiotics Gastrointestinal: continue feedings/current rate Endocrine: continue sliding scale insulin Hematologic: monitor H/H, transfuse if hgb<8.5 Neurologic: keep patient comfortable Affect: PRN ativan Notes Reviewed: shore working supervisor, cardio Discussed with: nurses, consultants, case management directorassistant manager trainee - Objective Last 24 Hour Vital Signs Date Time Temp Pulse Resp B/P (MAP) Pulse Ox O2 Delivery O2 Flow Rate FiO2 04/04/20 11:38 98 19 35 04/04/20 08:00 99.0 112 21 145/71 (95) 99 04/04/20 08:00 101 04/04/20 08:00 35 04/04/20 08:00 Mechanical Ventilator 04/04/20 07:09 105 24 35 04/04/20 05:15 104 110/62 04/04/20 04:00 96 04/04/20 04:00 Mechanical Ventilator 04/04/20 04:00 35 04/04/20 04:00 97.2 95 18 122/57 (78) 100 04/04/20 02:59 101 20 35 04/04/20 00:00 102 04/04/20 00:00 Mechanical Ventilator 04/04/20 00:00 98.8 100 21 120/65 (83) 100 04/03/20 22:57 105 19 35 04/03/20 21:21 114 138/68 04/03/20 20:00 Mechanical Ventilator 04/03/20 20:00 98.8 115 23 135/73 (93) 98 04/03/20 20:00 35 12/7/20 20:00 111 04/03/20 19:34 113 24 35 04/03/20 16:00 Mechanical Ventilator 04/03/20 16:00 35 04/03/20 16:00 101 04/03/20 16:00 97.9 105 24 146/78 (100) 100 04/03/20 15:15 106 27 35 04/03/20 13:53 105 150/84 Status: awake Condition: critical HEENT: atraumatic, normocephalic Neck: full ROM Lungs: chest wall tender Heart: HR/BP stable Abdomen: soft Extremities: no C/C/E Micro: Microbiology Date/Time Source Procedure Growth Status 04/02/20 15:30 Sputum Gram Stain - Final Resulted 04/02/20 15:30 Sputum Culture - Preliminary Gram Negative Bacillus 1 Gram Negative Bacillus 2 Resulted 04/01/20 18:50 Blood Blood Culture - Preliminary NO GROWTH AFTER 24 HOURS Resulted 04/01/20 18:35 Blood Blood Culture - Preliminary NO GROWTH AFTER 24 HOURS Resulted Accucheck: 155 Critical Care - Subjective ROS Limited/Unobtainable: Yes Condition: critical IV Access: PICC EKG Rhythm: Sinus Rhythm FI02: 35 Vent Support Breath Rate: 16 Vent Support Mode: AC Vent Tidal Volume: 400 Sputum Amount: Small PEEP: 5.0 PIP: 18 Tube Feeding Amount: 70 I&O: Intake and Output 04/03/20 04/04/20 19:00 07:00 Intake Total 1685 ml 1345 ml Output Total 350 ml 1350 ml Balance 1335 ml -5 ml Free Water 60 ml 90 ml IV Total 785 ml 485 ml Tube Feeding 840 ml 770 ml Output Urine Total 350 ml 1350 ml # Bowel Movements 4 4 Labs: Laboratory Tests Test 04/03/20 17:04 04/03/20 22:53 04/04/20 03:20 04/04/20 05:10 POC Whole Blood Glucose 155 MG/DL (74-106) H 167 MG/DL (74-106) H 155 MG/DL (74-106) H White Blood Count 19.7 K/UL (4.8-10.8) H Red Blood Count 2.43 M/UL (4.20-5.40) L Hemoglobin 6.6 G/DL (12.0-16.0) *L Hematocrit 20.2 % (37.0-47.0) L Mean Corpuscular Volume 83 FL (80-99) Mean Corpuscular Hemoglobin 27.1 PG (27.0-31.0) Mean Corpuscular Hemoglobin Concent 32.6 G/DL (32.0-36.0) Red Cell Distribution Width 18.8 % (11.6-14.8) H Platelet Count 411 K/UL (150-450) Mean Platelet Volume 6.6 FL (6.5-10.1) Neutrophils (%) (Auto) % (45.0-75.0) Lymphocytes (%) (Auto) % (20.0-45.0) Monocytes (%) (Auto) % (1.0-10.0) Eosinophils (%) (Auto) % (0.0-3.0) Basophils (%) (Auto) % (0.0-2.0) Differential Total Cells Counted 100 Neutrophils % (Manual) 67 % (45-75) Lymphocytes % (Manual) 9 % (20-45) L Monocytes % (Manual) 14 % (1-10) H Eosinophils % (Manual) 10 % (0-3) H Basophils % (Manual) 0 % (0-2) Band Neutrophils 0 % (0-8) Platelet Estimate Adequate Platelet Morphology Normal Hypochromasia 1+ Anisocytosis 1+ Erythrocyte Sedimentation Rate 142 MM/HR (0-30) H Sodium Level 148 MMOL/L (136-145) H Potassium Level 4.3 MMOL/L (3.5-5.1) Chloride Level 111 MMOL/L (98-107) H Carbon Dioxide Level 32 MMOL/L (21-32) Anion Gap 5 mmol/L (5-15) Blood Urea Nitrogen 57 mg/dL (7-18) H Creatinine 1.3 MG/DL (0.55-1.30) Estimat Glomerular Filtration Rate 48.8 mL/min (>60) Glucose Level 142 MG/DL (74-106) H Calcium Level 8.4 MG/DL (8.5-10.1) L Phosphorus Level 4.4 MG/DL (2.5-4.9) Magnesium Level 2.2 MG/DL (1.8-2.4) Total Bilirubin 0.2 MG/DL (0.2-1.0) Aspartate Amino Transf (AST/SGOT) 22 U/L (15-37) Alanine Aminotransferase (ALT/SGPT) 45 U/L (12-78) Alkaline Phosphatase 84 U/L (46-116) C-Reactive Protein, Quantitative 14.2 mg/dL (0.00-0.90) H Total Protein 6.7 G/DL (6.4-8.2) Albumin 1.4 G/DL (3.4-5.0) L Globulin 5.3 g/dL Albumin/Globulin Ratio 0.3 (1.0-2.7) L Prealbumin Pending Patti Matta MD Apr 04, 2020 12:05
--- NOTE | 2020-04-04 12:10 | Cardiac Electrophysiology PN ---
Assessment/Plan Assessment/Plan 1. MRSA bacteremia. Most recent blood culture from March 13, 2020 showed no growth. Echo showed EF of 60-65% with no clear vegetation. DEBBIE cancelled as family refused. On iv Abx per ID. Indium scan no clear source 2. Sinus tach due to sepsis. No atrial fib or SVT on Cardizem 30 tid 3. VDRF , status post tracheostomy.On 40% Fio2 4. Dysphagia, status post PEG placement. 5. History of intracranial hemorrhage. 6. Diabetes. 7. Glaucoma. 8. Sacral decubitus stage IV. 9. Hypertension, on Cardizem 10. Transient SVT. On Cardizem 30 tid 11. Anemia, getting PRBC DW RN and Dr Villegas Subjective Subjective On the Vent in sinus tach Fio2 35% and PEEP 5. Family refused DEBBIE. Had episodes of SVT lasting less than 20 seconds . Indium scan > no clear source. Hospice eval pending if family agrees. On Abx per ID Getting PRBC today Objective Last 24 Hour Vital Signs Date Time Temp Pulse Resp B/P (MAP) Pulse Ox O2 Delivery O2 Flow Rate FiO2 04/04/20 11:38 98 19 35 04/04/20 08:00 99.0 112 21 145/71 (95) 99 04/04/20 08:00 101 04/04/20 08:00 35 04/04/20 08:00 Mechanical Ventilator 04/04/20 07:09 105 24 35 04/04/20 05:15 104 110/62 04/04/20 04:00 96 04/04/20 04:00 Mechanical Ventilator 04/04/20 04:00 35 04/04/20 04:00 97.2 95 18 122/57 (78) 100 04/04/20 02:59 101 20 35 04/04/20 00:00 102 04/04/20 00:00 Mechanical Ventilator 04/04/20 00:00 98.8 100 21 120/65 (83) 100 04/03/20 22:57 105 19 35 04/03/20 21:21 114 138/68 04/03/20 20:00 Mechanical Ventilator 04/03/20 20:00 98.8 115 23 135/73 (93) 98 04/03/20 20:00 35 04/03/20 20:00 111 04/03/20 19:34 113 24 35 04/03/20 16:00 Mechanical Ventilator 04/03/20 16:00 35 04/03/20 16:00 101 04/03/20 16:00 97.9 105 24 146/78 (100) 100 04/03/20 15:15 106 27 35 04/03/20 13:53 105 150/84 Intake and Output 04/03/20 04/04/20 19:00 07:00 Intake Total 1685 ml 1345 ml Output Total 350 ml 1350 ml Balance 1335 ml -5 ml Free Water 60 ml 90 ml IV Total 785 ml 485 ml Tube Feeding 840 ml 770 ml Output Urine Total 350 ml 1350 ml # Bowel Movements 4 4 Laboratory Tests Test 04/03/20 17:04 04/03/20 22:53 04/04/20 03:20 04/04/20 05:10 POC Whole Blood Glucose 155 MG/DL (74-106) H 167 MG/DL (74-106) H 155 MG/DL (74-106) H White Blood Count 19.7 K/UL (4.8-10.8) H Red Blood Count 2.43 M/UL (4.20-5.40) L Hemoglobin 6.6 G/DL (12.0-16.0) *L Hematocrit 20.2 % (37.0-47.0) L Mean Corpuscular Volume 83 FL (80-99) Mean Corpuscular Hemoglobin 27.1 PG (27.0-31.0) Mean Corpuscular Hemoglobin Concent 32.6 G/DL (32.0-36.0) Red Cell Distribution Width 18.8 % (11.6-14.8) H Platelet Count 411 K/UL (150-450) Mean Platelet Volume 6.6 FL (6.5-10.1) Neutrophils (%) (Auto) % (45.0-75.0) Lymphocytes (%) (Auto) % (20.0-45.0) Monocytes (%) (Auto) % (1.0-10.0) Eosinophils (%) (Auto) % (0.0-3.0) Basophils (%) (Auto) % (0.0-2.0) Differential Total Cells Counted 100 Neutrophils % (Manual) 67 % (45-75) Lymphocytes % (Manual) 9 % (20-45) L Monocytes % (Manual) 14 % (1-10) H Eosinophils % (Manual) 10 % (0-3) H Basophils % (Manual) 0 % (0-2) Band Neutrophils 0 % (0-8) Platelet Estimate Adequate Platelet Morphology Normal Hypochromasia 1+ Anisocytosis 1+ Erythrocyte Sedimentation Rate 142 MM/HR (0-30) H Sodium Level 148 MMOL/L (136-145) H Potassium Level 4.3 MMOL/L (3.5-5.1) Chloride Level 111 MMOL/L (98-107) H Carbon Dioxide Level 32 MMOL/L (21-32) Anion Gap 5 mmol/L (5-15) Blood Urea Nitrogen 57 mg/dL (7-18) H Creatinine 1.3 MG/DL (0.55-1.30) Estimat Glomerular Filtration Rate 48.8 mL/min (>60) Glucose Level 142 MG/DL (74-106) H Calcium Level 8.4 MG/DL (8.5-10.1) L Phosphorus Level 4.4 MG/DL (2.5-4.9) Magnesium Level 2.2 MG/DL (1.8-2.4) Total Bilirubin 0.2 MG/DL (0.2-1.0) Aspartate Amino Transf (AST/SGOT) 22 U/L (15-37) Alanine Aminotransferase (ALT/SGPT) 45 U/L (12-78) Alkaline Phosphatase 84 U/L (46-116) C-Reactive Protein, Quantitative 14.2 mg/dL (0.00-0.90) H Total Protein 6.7 G/DL (6.4-8.2) Albumin 1.4 G/DL (3.4-5.0) L Globulin 5.3 g/dL Albumin/Globulin Ratio 0.3 (1.0-2.7) L Prealbumin Pending Microbiology Date/Time Source Procedure Growth Status 04/02/20 15:30 Sputum Gram Stain - Final Resulted 04/02/20 15:30 Sputum Culture - Preliminary Gram Negative Bacillus 1 Gram Negative Bacillus 2 Resulted 04/01/20 18:50 Blood Blood Culture - Preliminary NO GROWTH AFTER 24 HOURS Resulted 04/01/20 18:35 Blood Blood Culture - Preliminary NO GROWTH AFTER 24 HOURS Resulted Objective HEAD AND NECK: No JVD. LUNGS: Coarse rhonchi. Status post tracheostomy. CARDIOVASCULAR: Regular S1 and S2 with no gallop or rub. Status post PEG. EXTREMITIES: 1+ pitting edema with sacral decubitus. Shay Alejandre MD Apr 04, 2020 12:10
--- NOTE | 2020-04-04 12:26 | NUR ---
FINISHING RANGE FEEDER NOTE SW spoke w/ pt's daughter, Nilda Gordillo [phone] that she discussed the prognosis and end of life w/ Dr. Matta. The family requested the family visit w/ pt at 7pm today. Nursing pattern grader supervisor approved.
--- NOTE | 2020-04-04 12:57 | Diagnostic Imaging Report ---
Procedure: XRAY Chest 1v Reason for study: Reason For Exam: [id number] Comparison films: 04/02/2020. FINDINGS: Tracheostomy remains in place. Vascularity is normal. Left basilar densities unchanged. Cardiac and mediastinal silhouette are within normal limits. No large effusion seen. The bony thorax appear unremarkable. IMPRESSION: NO SIGNIFICANT CHANGE COMPARED TO PREVIOUS EXAM.
--- NOTE | 2020-04-04 14:39 | Surgery Progress Note ---
Surgery Progress Note Subjective Additional Comments comfortable stable on support no n/v/f/c Objective Last 24 Hour Vital Signs Date Time Temp Pulse Resp B/P (MAP) Pulse Ox O2 Delivery O2 Flow Rate FiO2 04/04/20 14:00 99 120/63 04/04/20 12:00 98.1 100 20 120/63 (82) 99 04/04/20 12:00 35 04/04/20 12:00 Mechanical Ventilator 04/04/20 12:00 99 04/04/20 11:39 98.4 04/04/20 11:38 98 19 35 04/04/20 08:00 99.0 112 21 145/71 (95) 99 04/04/20 08:00 101 04/04/20 08:00 35 04/04/20 08:00 Mechanical Ventilator 04/04/20 07:09 105 24 35 04/04/20 05:15 104 110/62 04/04/20 04:00 96 04/04/20 04:00 Mechanical Ventilator 04/04/20 04:00 35 04/04/20 04:00 97.2 95 18 122/57 (78) 100 04/04/20 02:59 101 20 35 04/04/20 00:00 102 04/04/20 00:00 Mechanical Ventilator 04/04/20 00:00 98.8 100 21 120/65 (83) 100 04/03/20 22:57 105 19 35 04/03/20 21:21 114 138/68 04/03/20 20:00 Mechanical Ventilator 04/03/20 20:00 98.8 115 23 135/73 (93) 98 04/03/20 20:00 35 04/03/20 20:00 111 04/03/20 19:34 113 24 35 04/03/20 16:00 Mechanical Ventilator 04/03/20 16:00 35 04/03/20 16:00 101 04/03/20 16:00 97.9 105 24 146/78 (100) 100 04/03/20 15:15 106 27 35 I&O Intake and Output 04/03/20 04/04/20 19:00 07:00 Intake Total 1685 ml 1345 ml Output Total 350 ml 1350 ml Balance 1335 ml -5 ml Free Water 60 ml 90 ml IV Total 785 ml 485 ml Tube Feeding 840 ml 770 ml Output Urine Total 350 ml 1350 ml # Bowel Movements 4 4 Dressing: saturated Cardiovascular: RSR Respiratory: decreased breath sounds Abdomen: non-tender, present bowel sounds, non-distended Extremities: no tenderness, no cyanosis Laboratory Tests Test 04/03/20 17:04 04/03/20 22:53 04/04/20 03:20 04/04/20 05:10 POC Whole Blood Glucose 155 MG/DL (74-106) H 167 MG/DL (74-106) H 155 MG/DL (74-106) H White Blood Count 19.7 K/UL (4.8-10.8) H Red Blood Count 2.43 M/UL (4.20-5.40) L Hemoglobin 6.6 G/DL (12.0-16.0) *L Hematocrit 20.2 % (37.0-47.0) L Mean Corpuscular Volume 83 FL (80-99) Mean Corpuscular Hemoglobin 27.1 PG (27.0-31.0) Mean Corpuscular Hemoglobin Concent 32.6 G/DL (32.0-36.0) Red Cell Distribution Width 18.8 % (11.6-14.8) H Platelet Count 411 K/UL (150-450) Mean Platelet Volume 6.6 FL (6.5-10.1) Neutrophils (%) (Auto) % (45.0-75.0) Lymphocytes (%) (Auto) % (20.0-45.0) Monocytes (%) (Auto) % (1.0-10.0) Eosinophils (%) (Auto) % (0.0-3.0) Basophils (%) (Auto) % (0.0-2.0) Differential Total Cells Counted 100 Neutrophils % (Manual) 67 % (45-75) Lymphocytes % (Manual) 9 % (20-45) L Monocytes % (Manual) 14 % (1-10) H Eosinophils % (Manual) 10 % (0-3) H Basophils % (Manual) 0 % (0-2) Band Neutrophils 0 % (0-8) Platelet Estimate Adequate Platelet Morphology Normal Hypochromasia 1+ Anisocytosis 1+ Erythrocyte Sedimentation Rate 142 MM/HR (0-30) H Sodium Level 148 MMOL/L (136-145) H Potassium Level 4.3 MMOL/L (3.5-5.1) Chloride Level 111 MMOL/L (98-107) H Carbon Dioxide Level 32 MMOL/L (21-32) Anion Gap 5 mmol/L (5-15) Blood Urea Nitrogen 57 mg/dL (7-18) H Creatinine 1.3 MG/DL (0.55-1.30) Estimat Glomerular Filtration Rate 48.8 mL/min (>60) Glucose Level 142 MG/DL (74-106) H Calcium Level 8.4 MG/DL (8.5-10.1) L Phosphorus Level 4.4 MG/DL (2.5-4.9) Magnesium Level 2.2 MG/DL (1.8-2.4) Total Bilirubin 0.2 MG/DL (0.2-1.0) Aspartate Amino Transf (AST/SGOT) 22 U/L (15-37) Alanine Aminotransferase (ALT/SGPT) 45 U/L (12-78) Alkaline Phosphatase 84 U/L (46-116) C-Reactive Protein, Quantitative 14.2 mg/dL (0.00-0.90) H Total Protein 6.7 G/DL (6.4-8.2) Albumin 1.4 G/DL (3.4-5.0) L Globulin 5.3 g/dL Albumin/Globulin Ratio 0.3 (1.0-2.7) L Prealbumin Pending Plan Problems: (1) Hypernatremia (2) Sepsis (3) UTI (urinary tract infection) (4) Stage 4 decubitus ulcer Assessment & Plan: Pt presented with trach,contractures, multiple Pressure injuries in various stages.Skin assessed under collar of trach and no skin breakdown evident. Full thickness Sacral Pressure injury with undermining cl ockwise 6-9o'clock.Wound is irregular shaped.Base of wound is 95% granular,5% slough at undermined borders.Small area of bone exposure noted at base of wound. Small amt serosanguineous exudate noted. No odor noted. An area of slough noted along borders. Edges are otherwise adherent and flat to base of wound with surrounding dry, darker skin tone.(L)11.2cm x (W)-8.7cm x(D)1.6cm ,undermining clockwise 6-9o'clock by 1.8cm @8o'clock. Partial thickness Pressure injury noted to R ischium. Base of wound is moist , viable with surrounding shearing and non-blanchable erythema.(L)6.5cm x (W)4.5cm. Partial thickness Pressure injury L Ischium(L)1.2cm x (W)1.5cm. Base of wound is moist and viable with surrounding non-blanchable erythema with additional shearing. Resolving Pressure Injury medial L Knee. Base of wound is pink and dry . Resolving Pressure injury medial R knee. Dry pink epithelial with scattered moist, granular areas within base of wound.No odor or exudate noted.(L)4.3cm x (W)2.6cm. DTPI L lateral Malleolus(L)2.5cm x (W)3.5cm.Base of Pressure injury is indurated and maroon in colour. Non-Blanchable erythema periwound. DTPI L achilles extending into Plantar aspect of L heel(L)9.7cm x (W)10.4cm. Base of Pressure injury is black at achilles area with scattered purpuric areas, and is otherwise maroon and indurated. Resolving Pressure injury medial R Malleolus. [place] epithelial at base of wound. Stable dry eschar noted to R Hallux (L)1.2cm x (W01.3cm. Periwound skin tone is darker without erythema or induration. Tx.Plan: Cleanse Sacral wound with Saline. Loosely pack with Therahoney impregnated Kerlix(Attention to undermined area). Apply Moisture Barrier Periwound. Cover with Optifoam drsg. Change Daily and prn. Apply Moisture Barrier Paste to R and L Ischial wounds. Cover each site with Optifoam drsg. Change every 3 days and prn. Apply Cavilon Skin Barrier to medial aspects of R and L Knee. Cover each wound with Optifoam drsg.Change every 7 days and prn. Apply Cavilon Skin Barrier to R Hallux, R Heel, R and L Malleoli, and Both heels. Cover each affected area with Optifoam drsgs. Change drsgs every 7 days and prn. Reposition at least every [address] tolerated[address] Pillow between Knees. Off-load heels with Pillow. CT noted. osteo in sacrum cont abx osteo chronic will monitor and asses if debridement needed ABDOMEN: Liver: Unremarkable. No mass. Gallbladder and bile ducts: Unremarkable. No calcified stones. No ductal dilation. Pancreas: Unremarkable. No mass. No ductal dilation. Spleen: Spleen is small. Adrenals: Unremarkable. No mass. Kidneys and ureters: Renal cysts and subcentimeter low-attenuation foci, too small to characterize. No hydronephrosis. Stomach and bowel: Unremarkable. No obstruction. No mucosal thickening. PELVIS: Appendix: No findings to suggest acute appendicitis. Bladder: Bladder wall thickening. Foci of gas in the bladder. Correlate for recent instrumentation versus cystitis. Reproductive: Unremarkable as visualized. ABDOMEN and PELVIS: Intraperitoneal space: Unremarkable. No free air. No significant fluid collection. Bones/joints: Sacrococcygeal decubitus ulcers with associated osteomyelitis. There is some underlying bone thinning and sclerosis in the distal sacrum and coccyx underlying the decubitus ulcers. No acute fracture. No dislocation. Soft tissues: Unremarkable. Vasculature: Moderate plaque abdominal aorta and branches. No abdominal aortic aneurysm. Lymph nodes: Unremarkable. No enlarged lymph nodes. Tubes, lines and devices: Gastrostomy tube within the gastric body. IMPRESSION: 1. Sacrococcygeal decubitus ulcers with associated osteomyelitis. 2. Small left pleural effusion. Left lower lobe atelectasis. 3. Bladder wall thickening. Foci of gas in the bladder. Correlate for recent instrumentation versus cystitis. DAILY ESTIMATED NEEDS: Needs based on Advanced wound, critical care, underweight, CHILD CARE COORDINATOR TF/ 45.5kg 30-40 kcals/kg 1773-4694 total kcals 1.5-2 g protein/kg 68-91 g total protein 30-40 mL/kg 9704-5268 total fluid mLs NUTRITION DIAGNOSIS: Increased kcal/prot needs R/T underweight status, wound healing as evidenced by pt @83% IBW w/ underweight BMI of 17.2, admitted w/ multiple wounds, including stage 4 sacral wound. CURRENT TF:Glucerna 1.2 @ 45ml/hr x 24 hrs ENTERAL NUTRITION RECOMMENDATIONS: Glucerna 1.2 @ 60ml/hr x 24 hrs to provide 1440ml, 1728kcal, 86g prot, 1159ml free water * Increase goal rate to 60ml/hr x 24 hrs to meet 100% est kcal/prot needs -> 1.9g prot/kg * HOB over 30 degrees/ water flush per MD * add Shen BID ADDITIONAL RECOMMENDATIONS: * Per SNF: HT=64" and NH=010# vs EMR wt of 147lbs -> rec daily calibrated bedscale wt * Wound healing: TF rec @ goal will provide 100% RDI Vit C 500mg BID, ZnSO4 220gm QD x 10 days Shen BID via PEG * Monitor BGs, consider NISS: h/o DM * Monitor lytes, replete as needed (5) Chronic respiratory failure requiring continuous mechanical ventilation through tracheostomy (6) History of intracranial hemorrhage (7) Idiopathic obstructive hydrocephalus (8) Gout (9) Diabetes mellitus (10) Parkinson's disease dementia (11) Acute on chronic respiratory failure (12) Chronic vegetative state (13) Severe protein-calorie malnutrition Assessment & Plan: DAILY ESTIMATED NEEDS: Needs based on Advanced wound, critical care, underweight, CHILD CARE COORDINATOR TF/ 50kg 30-40 kcals/kg 6476-4378 total kcals 1.5-2 g protein/kg 75-100 g total protein 25-35ml/kcal mL/kg 0448-0376 total fluid mLs NUTRITION DIAGNOSIS: Increased kcal/prot needs R/T underweight status, wound healing as evidenced by pt @83% IBW w/ underweight BMI of 17.2, admitted w/ multiple wounds, including stage 4 sacral wound. CURRENT TF:Glucerna 1.2 @ 70ml/hr x 24 hrs (101g pro-provides 2g/kg pro) ENTERAL NUTRITION RECOMMENDATIONS: Glucerna 1.2 @ 65ml/hr x 24 hrs to provide 1560ml, 1872kcal, 94g prot, 1256ml free water * LOWER goal rate to 65ml/hr x 24 hrs- meets 100% est kcal/prot needs * HOB over 30 degrees * INCREASE water flushes: 120ml q 6hrs * add Shen BID * Beneprotein not avaialble. Monitor K and phos, w/ continued elevated levels, rec TF change to Nepro @ goal rate of 45ml/hr x 24 hrs to provide 1080ml, 1944kcal, 87g prot ADDITIONAL RECOMMENDATIONS: * Per SNF: HT=64" and AX=808# vs EMR wt of 147lbs -> Recalibrate bed scale for accurate CBW * Wound healing: TF rec @ goal will provide 100% RDI Continue Vit C, ZnSO4, and Shen BID * Monitor BGs, consider NISS: h/o DM -> NISS now added * Monitor lytes, need for Nepro (k, phos wnl) * Increase water flushes vs added D5: elevated Na and BUN (14) Hypercalcemia (15) Staphylococcus aureus bacteremia Assessment & Plan: unlikely related to wound checking often to ensure not worsening good local care being provided cont abx There is bilateral mostly upper lobe centrilobular emphysema. Mosaic attenuation pattern is seen throughout the bilateral upper lobes. There is consolidation and atelectasis of most of the left lower lobe. A few groundglass opacities are seen in the inferior left upper lobe. There is some compressive atelectasis at the right lung base with elevation of the right hemidiaphragm. There is a subpleural 8 mm nodular opacity in the right middle lobe. On recent abdomen pelvis CT scan, this demonstrated a cavity. The cavity is not evident currently There is a tracheostomy. The pleural spaces are clear. The heart size is normal. No pericardial effusion. No mediastinal or hilar mass or adenopathy. The ascending thoracic aorta is mildly ectatic, measuring up to 3.8 cm in diameter. The included portion of the thyroid is unremarkable. No axillary or chest wall mass or adenopathy demonstrated. There is smooth thoracic kyphosis without focal compression abnormality. The bones are unremarkable. Included upper abdominal anatomy demonstrates contrast in the colon from prior CT of the abdomen. There is a upper pole right renal cyst Impression: Centrilobular emphysema seen throughout both lungs with with an upper lobe predominance, indicating extensive COPD changes Mosaic attenuation pattern in the upper lobes probably related to COPD, although this is a nonspecific finding Dense consolidation and atelectasis of much of the left lower lobe. This could represent pneumonia. Groundglass opacities in the inferior left upper lobe. These could represent areas of acute inflammation, or could represent post inflammatory changes. 8mm nodule in the right middle lobe, also described on prior CT scan. This previously demonstrated a cavity. Cavitation currently not evident. Differential considerations include neoplasm, acute or chronic inflammatory lesion. Recommend at a minimum follow-up CT scan in 6 months Tracheostomy Kyphosis Right upper pole renal cyst Chris Hunter Apr 04, 2020 14:39
--- NOTE | 2020-04-04 14:53 | NUR ---
NURSE NOTES: At 1426 blood transfusion started. No a/r noted. Afebrile. Will cont. to monitor.
--- NOTE | 2020-04-04 15:19 | NUR ---
CASE MANAGEMENT:REVIEW 04/04/20 SI;SEPSIS. BACTEREMIA. TRACH/VENT DEPENDENT. 99.0 112 21 145/71 99% TRACH/VENT FIO2 35% WBC+19.7 H/H-6.6/20.2 IS;TRANSFUSE PRBC'S VANCOMYCIN IV Q12 ZINC GT QD CARDIZEM GT Q8HR PEPCID GT BID : [id number] DCP: FROM [facility] PLAN: MONITOR WBC'S
--- NOTE | 2020-04-04 15:50 | Nephrology Progress Note ---
Assessment/Plan Problem List: (1) Hypercalcemia (2) Hypernatremia (3) Sepsis (4) UTI (urinary tract infection) (5) Stage 4 decubitus ulcer (6) Acute on chronic respiratory failure (7) Chronic vegetative state (8) Severe protein-calorie malnutrition Assessment Azotemia and hypernatremia indicative of severe dehydration and free water deficit Acute on chronic respiratory failure, on mechanical ventilation Severe underlying anemia Sepsis Stage IV decubitus Idiopathic obstructive hydrocephalus, history of intracranial hemorrhage Diabetes mellitus Parkinson's disease, dementia Protein calorie malnutrition Plan April 04: Labs reviewed. Renal parameters stable. Hemoglobin lower. Mack sfusion per PMD. Continue to monitor renal parameters. April 03: Labs reviewed. Serum potassium 5.4. Appears to be hemolysis. 30 g Kayexalate given. Continue to monitor renal parameters and electrolytes. Leukocytosis improved nevertheless persists. April 02: Labs reviewed. Serum creatinine normalized. Electrolytes within normal limit. Continue per current management. Patient remains full code. April 01: Labs reviewed. Serum creatinine up to 1.5 and potassium 5.2. Patient had episodes of hypotension. Will give fluid challenge. Continue to monitor renal parameters. Urine studies ordered. March 31: No labs done today. Remains full code. Trach and vent. Continue per consultants. March 30: Labs reviewed. Trach to vent. Remains full code. Labs reviewed. Renal parameters stable. March 29: Labs reviewed. Renal parameters stable. Continue per consultants. March 28: Labs reviewed. Stable from renal standpoint of view. March 27: Medication list reviewed. Labs reviewed. Stable from renal standpoint of view. March 26: Patient remains stable from renal standpoint of view. Labs and medication list reviewed. March 25: Labs reviewed. Renal parameters stable. Continue per consultants. March 24: Labs reviewed. Renal parameters stable. Continue per consultants. March 23: Labs reviewed. Renal parameters are stable. Continue per consultants. March 22: Labs reviewed. Serum sodium 151. D5W IV given. Continue per consultants. March 21: Labs reviewed. Renal parameters stable. Continue per consultants. March 20: Labs reviewed. Serum sodium lower 147. Serum calcium stable. Continue as is. March 19: Labs reviewed. Serum sodium unchanged at 150. Another liter of D5W ordered. Serum calcium stable. Continue as is. March 18: Labs reviewed. Serum sodium 150. 1 L of D5W IV ordered. Serum calcium stable. Continue as is. March 17: Labs reviewed. Renal parameters stable. Continue to watch serum calcium. Continue per consultants. March 16: Labs reviewed. Serum calcium stable. Medication list reviewed. Abnormal electrolyte addressed. Continue current management. March 15: Labs reviewed. Serum calcium lowering. Abnormal electrolytes addressed. Continue per consultants. March 14: Labs reviewed. Status quo. Serum calcium lowering. Magnesium and potassium supplement ordered. Continue per current treatment plan. March 13: 1 dose of pamidronate 60 mg for high calcium IV ordered. Labs reviewed. Medication list reviewed. Electrolytes improving. Hemoglobin higher after transfusion. Nasal calcitonin initiated March 12: D5W at 75 cc an hour Monitor electrolytes Monitor hemoglobin hematocrit Gastric support Consider transfusion Continue per orders Parameters for blood pressure medication Antibiotics per ID Subjective ROS Limited/Unobtainable: Yes Objective Objective Last 24 Hour Vital Signs Date Time Temp Pulse Resp B/P (MAP) Pulse Ox O2 Delivery O2 Flow Rate FiO2 04/04/20 14:00 99 120/63 04/04/20 12:00 98.1 100 20 120/63 (82) 99 04/04/20 12:00 35 04/04/20 12:00 Mechanical Ventilator 04/04/20 12:00 99 04/04/20 11:39 98.4 04/04/20 11:38 98 19 35 04/04/20 08:00 99.0 112 21 145/71 (95) 99 04/04/20 08:00 101 04/04/20 08:00 35 04/04/20 08:00 Mechanical Ventilator 04/04/20 07:09 105 24 35 04/04/20 05:15 104 110/62 04/04/20 04:00 96 04/04/20 04:00 Mechanical Ventilator 04/04/20 04:00 35 04/04/20 04:00 97.2 95 18 122/57 (78) 100 04/04/20 02:59 101 20 35 04/04/20 00:00 102 04/04/20 00:00 Mechanical Ventilator 04/04/20 00:00 98.8 100 21 120/65 (83) 100 04/03/20 22:57 105 19 35 04/03/20 21:21 114 138/68 04/03/20 20:00 Mechanical Ventilator 04/03/20 20:00 98.8 115 23 135/73 (93) 98 04/03/20 20:00 35 04/03/20 20:00 111 04/03/20 19:34 113 24 35 04/03/20 16:00 Mechanical Ventilator 04/03/20 16:00 35 04/03/20 16:00 101 04/03/20 16:00 97.9 105 24 146/78 (100) 100 Intake and Output 04/03/20 04/04/20 19:00 07:00 Intake Total 1685 ml 1415 ml Output Total 350 ml 1350 ml Balance 1335 ml 65 ml Free Water 60 ml 90 ml IV Total 785 ml 485 ml Tube Feeding 840 ml 840 ml Output Urine Total 350 ml 1350 ml # Bowel Movements 4 4 Current Medications Medications (Trade) Dose Ordered Sig/Zaki Route PRN Reason Start Time Stop Time Status Last Admin Dose Admin Acetaminophen (Tylenol) 650 mg Q6H PRN GT Temp >100.5, Mild Pain 03/11/20 06:30 04/10/20 06:29 04/04/20 11:09 Ascorbic Acid (Vitamin C) 500 mg DAILY GT 04/04/20 09:00 04/27/20 08:59 04/04/20 08:52 Calcitonin [place] (Miacalcin) 1 sprays DAILY NASAL 03/13/20 11:00 06/11/20 10:59 04/04/20 08:52 Dextrose (Dextrose 50%) 25 ml Q30M PRN IV Hypoglycemia 03/13/20 23:30 06/11/20 23:29 Dextrose (Dextrose 50%) 50 ml Q30M PRN IV Hypoglycemia 03/13/20 23:30 06/11/20 23:29 Diltiazem HCl (Cardizem Tab) 30 mg EVERY 8 HOURS GT 03/24/20 14:00 04/23/20 13:59 04/04/20 05:15 Diphenhydramine HCl (Benadryl) 25 mg Q8H PRN ORAL Itching 03/14/20 15:00 04/13/20 14:59 03/14/20 15:50 Famotidine (Pepcid) 20 mg BID GT 03/18/20 18:00 06/09/20 08:59 04/04/20 08:51 Insulin Aspart (NovoLOG) Q6HR SUBQ 03/14/20 00:00 06/12/20 00:00 04/04/20 05:14 Multivitamins (Multivitamins) 1 tab DAILY GT 04/04/20 09:00 04/27/20 08:59 04/04/20 08:51 Ondansetron HCl (Zofran) 4 mg Q4H PRN IVP Nausea & Vomiting 03/11/20 06:30 04/10/20 06:29 Vancomycin HCl (Vanco pharmacy to dose) 1 ea DAILY PRN MISC Per rx protocol 03/31/20 09:00 04/30/20 08:59 Vancomycin HCl 500 mg/Sodium Chloride 110 ml @ 110 mls/hr Q12H IVPB 03/31/20 23:00 04/05/20 22:59 04/04/20 11:12 Zinc Sulfate (Zinc Sulfate) 220 mg DAILY GT 04/04/20 09:00 04/07/20 09:00 04/04/20 08:51 Laboratory Tests 04/03/20 17:04: POC Whole Blood Glucose 155H 04/03/20 22:53: POC Whole Blood Glucose 167H 04/04/20 03:20: White Blood Count 19.7H, Red Blood Count 2.43L, Hemoglobin 6.6*L, Hematocrit 20.2L, Mean Corpuscular Volume 83, Mean Corpuscular Hemoglobin 27.1, Mean Corpuscular Hemoglobin Concent 32.6, Red Cell Distribution Width 18.8H, Platelet Count 411, Mean Platelet Volume 6.6, Neutrophils (%) (Auto) , Lymphocytes (%) (Auto) , Monocytes (%) (Auto) , Eosinophils (%) (Auto) , Basophils (%) (Auto) , Differential Total Cells Counted 100, Neutrophils % (Manual) 67, Lymphocytes % (Manual) 9L, Monocytes % (Manual) 14H, Eosinophils % (Manual) 10H, Basophils % (Manual) 0, Band Neutrophils 0, Platelet Estimate Adequate, Platelet Morphology Normal, Hypochromasia 1+, Anisocytosis 1+, Erythrocyte Sedimentation Rate 142H, Sodium Level 148H, Potassium Level 4.3, Chloride Level 111H, Carbon Dioxide Level 32, Anion Gap 5, Blood Urea Nitrogen 57H, Creatinine 1.3, Estimat Glomeru lar Filtration Rate 48.8, Glucose Level 142H, Calcium Level 8.4L, Phosphorus Level 4.4, Magnesium Level 2.2, Total Bilirubin 0.2, Aspartate Amino Transf (AST/SGOT) 22, Alanine Aminotransferase (ALT/SGPT) 45, Alkaline Phosphatase 84, C-Reactive Protein, Quantitative 14.2H, Total Protein 6.7, Albumin 1.4L, Globulin 5.3, Albumin/Globulin Ratio 0.3L, Prealbumin [Pending] 04/04/20 05:10: POC Whole Blood Glucose 155H Height (Feet): 5 Height (Inches): 5.00 Weight (Pounds): 147 General Appearance: no apparent distress, lethargic EENT: other - Trach to vent Cardiovascular: tachycardia Respiratory/Chest: decreased breath sounds Abdomen: distended Mathew Huntley MD Apr 04, 2020 15:50
[2020-04-04 16:00] VITALS: BP 128/79
--- NOTE | 2020-04-04 17:45 | Internal Med Progress Note ---
Subjective Date of Service: Apr 04, 2020 Physician Name JennPiyush Attending Physician Jesus Lutz MD Current Medications Medications (Trade) Dose Ordered Sig/Zaki Route PRN Reason Start Time Stop Time Status Last Admin Dose Admin Acetaminophen (Tylenol) 650 mg Q6H PRN GT Temp >100.5, Mild Pain 03/11/20 06:30 04/10/20 06:29 04/04/20 11:09 Ascorbic Acid (Vitamin C) 500 mg DAILY GT 04/04/20 09:00 04/27/20 08:59 04/04/20 08:52 Calcitonin [place] (Miacalcin) 1 sprays DAILY NASAL 03/13/20 11:00 06/11/20 10:59 04/04/20 08:52 Dextrose (Dextrose 50%) 25 ml Q30M PRN IV Hypoglycemia 03/13/20 23:30 06/11/20 23:29 Dextrose (Dextrose 50%) 50 ml Q30M PRN IV Hypoglycemia 03/13/20 23:30 06/11/20 23:29 Diltiazem HCl (Cardizem Tab) 30 mg EVERY 8 HOURS GT 03/24/20 14:00 04/23/20 13:59 04/04/20 05:15 Diphenhydramine HCl (Benadryl) 25 mg Q8H PRN ORAL Itching 03/14/20 15:00 04/13/20 14:59 03/14/20 15:50 Famotidine (Pepcid) 20 mg BID GT 03/18/20 18:00 06/09/20 08:59 04/04/20 08:51 Insulin Aspart (NovoLOG) Q6HR SUBQ 03/14/20 00:00 06/12/20 00:00 04/04/20 05:14 Multivitamins (Multivitamins) 1 tab DAILY GT 04/04/20 09:00 04/27/20 08:59 04/04/20 08:51 Ondansetron HCl (Zofran) 4 mg Q4H PRN IVP Nausea & Vomiting 03/11/20 06:30 04/10/20 06:29 Vancomycin HCl (Vanco pharmacy to dose) 1 ea DAILY PRN MISC Per rx protocol 03/31/20 09:00 04/30/20 08:59 Vancomycin HCl 500 mg/Sodium Chloride 110 ml @ 110 mls/hr Q12H IVPB 04/04/20 23:00 04/09/20 22:59 Zinc Sulfate (Zinc Sulfate) 220 mg DAILY GT 04/04/20 09:00 04/07/20 09:00 04/04/20 08:51 Allergies: Coded Allergies: No Known Allergies (Unverified , 03/11/20) ROS Limited/Unobtainable: Yes Subjective 74 YO F trach dependent admitted with hypoxic respiratory failure. Now pneumonia and sepsis. Cover for Int [place]-Dr Lutz. Step down unit. Tracheostomy Objective Last Vital Signs Date Time Temp Pulse Resp B/P (MAP) Pulse Ox O2 Delivery O2 Flow Rate FiO2 04/04/20 16:00 Mechanical Ventilator 04/04/20 16:00 35 04/04/20 16:00 99.1 95 21 128/79 (95) 100 Laboratory Tests Test 04/03/20 22:53 04/04/20 03:20 04/04/20 05:10 POC Whole Blood Glucose 167 MG/DL (74-106) H 155 MG/DL (74-106) H White Blood Count 19.7 K/UL (4.8-10.8) H Red Blood Count 2.43 M/UL (4.20-5.40) L Hemoglobin 6.6 G/DL (12.0-16.0) *L Hematocrit 20.2 % (37.0-47.0) L Mean Corpuscular Volume 83 FL (80-99) Mean Corpuscular Hemoglobin 27.1 PG (27.0-31.0) Mean Corpuscular Hemoglobin Concent 32.6 G/DL (32.0-36.0) Red Cell Distribution Width 18.8 % (11.6-14.8) H Platelet Count 411 K/UL (150-450) Mean Platelet Volume 6.6 FL (6.5-10.1) Neutrophils (%) (Auto) % (45.0-75.0) Lymphocytes (%) (Auto) % (20.0-45.0) Monocytes (%) (Auto) % (1.0-10.0) Eosinophils (%) (Auto) % (0.0-3.0) Basophils (%) (Auto) % (0.0-2.0) Differential Total Cells Counted 100 Neutrophils % (Manual) 67 % (45-75) Lymphocytes % (Manual) 9 % (20-45) L Monocytes % (Manual) 14 % (1-10) H Eosinophils % (Manual) 10 % (0-3) H Basophils % (Manual) 0 % (0-2) Band Neutrophils 0 % (0-8) Platelet Estimate Adequate Platelet Morphology Normal Hypochromasia 1+ Anisocytosis 1+ Erythrocyte Sedimentation Rate 142 MM/HR (0-30) H Sodium Level 148 MMOL/L (136-145) H Potassium Level 4.3 MMOL/L (3.5-5.1) Chloride Level 111 MMOL/L (98-107) H Carbon Dioxide Level 32 MMOL/L (21-32) Anion Gap 5 mmol/L (5-15) Blood Urea Nitrogen 57 mg/dL (7-18) H Creatinine 1.3 MG/DL (0.55-1.30) Estimat Glomerular Filtration Rate 48.8 mL/min (>60) Glucose Level 142 MG/DL (74-106) H Calcium Level 8.4 MG/DL (8.5-10.1) L Phosphorus Level 4.4 MG/DL (2.5-4.9) Magnesium Level 2.2 MG/DL (1.8-2.4) Total Bilirubin 0.2 MG/DL (0.2-1.0) Aspartate Amino Transf (AST/SGOT) 22 U/L (15-37) Alanine Aminotransferase (ALT/SGPT) 45 U/L (12-78) Alkaline Phosphatase 84 U/L (46-116) C-Reactive Protein, Quantitative 14.2 mg/dL (0.00-0.90) H Total Protein 6.7 G/DL (6.4-8.2) Albumin 1.4 G/DL (3.4-5.0) L Globulin 5.3 g/dL Albumin/Globulin Ratio 0.3 (1.0-2.7) L Prealbumin Pending Microbiology Date/Time Source Procedure Growth Status 04/02/20 15:30 Sputum Gram Stain - Final Resulted 04/02/20 15:30 Sputum Culture - Preliminary Gram Negative Bacillus 1 Gram Negative Bacillus 2 Resulted 04/01/20 18:50 Blood Blood Culture - Preliminary NO GROWTH AFTER 24 HOURS Resulted 04/01/20 18:35 Blood Blood Culture - Preliminary NO GROWTH AFTER 24 HOURS Resulted Intake and Output 04/03/20 04/04/20 18:59 06:59 Intake Total 1615 ml 1415 ml Output Total 350 ml 1350 ml Balance 1265 ml 65 ml Free Water 60 ml 90 ml IV Total 785 ml 485 ml Tube Feeding 770 ml 840 ml Output Urine Total 350 ml 1350 ml # Bowel Movements 4 4 Objective PHYSICAL EXAMINATION: GENERAL: The patient is a thin-appearing female who is intubated and nonverbal. HEENT: Eyes, pupils are equal and responsive to light and accommodation. Extraocular movements are intact. NECK: Supple without lymphadenopathy. Tracheostomy is in place. CHEST: Mech vent; Diffuse wheezes bilaterally without rhonchi. CARDIOVASCULAR: Tachycardic, regular rhythm. S1, S2 are normal without murmurs, rubs, or gallops. ABDOMEN: Soft, nontender, and nondistended. Positive bowel sounds. No evidence of hepatosplenomegaly. Currently, no rebound or guarding noted. EXTREMITIES: Negative for clubbing, cyanosis, or edema. RECTAL/GENITAL: Not performed. NEUROLOGIC: Unable to assess. chest x-ray revealed left lower lobe consolidation consistent with pneumonia Assessment/Plan Assessment/Plan ASSESSMENT: This is a 74-year-old female. 1. Left lower lobe pneumonia. 2. Respiratory failure. 3. Hypernatremia. 4. Renal failure. 5. Hypoxemia. 6. Tracheostomy dependence. 7. Chronic obstructive pulmonary disease. 8. Diabetes type 2. 9. Parkinson disease. 10. Gout. 11. Glaucoma. 12. Sacral decubitus ulcer stage IV. 13. History of intracranial hemorrhage. 14. Hydrocephalus. 15. sepsis=MRSA 16. UTI=MDR acenitobacter 17. Severe anemia TREATMENT: 1. Left lower lobe pneumonia/respiratory failure/sepsis. Pulmonary consultation =Dr. Patti Matta. ABX= continue vancomycin; S/P linezolid and levaquin. S/P vanco and zosyn -see ID note Infectious disease=Dr. Villegas. We will follow recommendations of Infectious Disease and Pulmonary. 2. Hypernatremia. Hypernatremia may be secondary to renal failure versus dehydration. Nephrology consultation =. 3. Renal failure nephrology consultation =Dr. Huntley. 4. Tracheostomy dependence. 5. Chronic obstructive pulmonary disease. 6. Diabetes type 2. NovoLog sliding scale has been instituted. 7. Parkinson disease. 8. Gout. Continue allopurinol as above. 9. Glaucoma. 10. Sacral decubitus ulcer stage IV. A general surgery consultation has been obtained with Dr. Chris Hunter. 11. History of intracranial hemorrhage. 12. DEBBIE refused by patient's daughter; cardiology=Trista Alejandre and Rachel 13. S/P transfusion 2 units PRBC on 03/12; transfuse 1 unit PRBC today Piyush Barajas MD Apr 04, 2020 17:45
--- NOTE | 2020-04-04 18:00 | NUR ---
NURSE NOTES: Dtr. at bedside holding her mothers hand. Per dtr. that Dr. Matta and [facility] already spoke to her regarding end of life. Gave family some privacy time with her mother.
--- NOTE | 2020-04-04 19:00 | NUR ---
NURSE NOTES: Received report from ADILENE Smiley. Pt is seen lying in bed in semi- horowitz's position. Relatives on bed side per the AM nurse Dr. Matta discussed to family regarding the palliative care options and end of life. Still pending for discussion. Gtube flushed and patent, Left hand g22 and LFA g 22 intact and patent running TKO. On dominique cath draining yellow urine with sediments, flushed. Trach to vent with settings as ordered. Bed in lowest position, call light within reach. Continue to plan of care.
--- NOTE | 2020-04-04 19:27 | NUR ---
NURSE HAND-OFF REPORT: Important Events on Shift:[] Patient Status: [] Diet: [] Pending Orders: [] Pending Results/Labs:[] Pending MD notification:[] Latest Vital Signs: Temperature 99.1 , Pulse 118 , B/P 128 /79 , Respiratory Rate 21 , O2 SAT 100 , Mechanical Ventilator, O2 Flow Rate . Vital Sign Comment: [] EKG Rhythm: SVT Rhythm change?: N MD Notified?: N -Dr. Hill MARQUES Response: Latest Ochoa Fall Score: 70 Fall Risk: High Risk Safety Measures: Call light Within Reach, Bed Alarm Zone 2, Side Rails Side Rails x3, Bed position Low and Locked. Fall Precautions: Yellow Socks Yellow Gown Door Sign Patient Fall Education Report given to Princess HEAD.
--- NOTE | 2020-04-04 19:30 | NUR ---
NURSE NOTES: Cleaned pt, reposition pt per protocol, Sponge bath given. Not in respiratory distress o2 sat-100%. Continue to plan of care.
[2020-04-04 20:00] VITALS: BP 134/82
--- NOTE | 2020-04-04 22:20 | General Progress Note ---
Subjective Allergies: Coded Allergies: No Known Allergies (Unverified , 03/11/20) Subjective above noted tolerating TF non communicative end of life planning noted Objective Last 24 Hour Vital Signs Date Time Temp Pulse Resp B/P (MAP) Pulse Ox O2 Delivery O2 Flow Rate FiO2 04/04/20 21:58 114 134/68 04/04/20 20:00 97.2 75 20 134/82 (99) 95 04/04/20 20:00 35 04/04/20 20:00 113 04/04/20 20:00 Mechanical Ventilator 04/04/20 19:17 103 24 35 04/04/20 16:16 118 04/04/20 16:00 Mechanical Ventilator 04/04/20 16:00 35 04/04/20 16:00 99.1 95 21 128/79 (95) 100 04/04/20 15:57 104 04/04/20 15:30 101 22 35 04/04/20 14:00 99 120/63 04/04/20 12:00 98.1 100 20 120/63 (82) 99 04/04/20 12:00 35 04/04/20 12:00 Mechanical Ventilator 04/04/20 12:00 99 04/04/20 11:39 98.4 04/04/20 11:38 98 19 35 04/04/20 08:00 99.0 112 21 145/71 (95) 99 04/04/20 08:00 101 04/04/20 08:00 35 04/04/20 08:00 Mechanical Ventilator 04/04/20 07:09 105 24 35 04/04/20 05:15 104 110/62 04/04/20 04:00 96 04/04/20 04:00 Mechanical Ventilator 04/04/20 04:00 35 04/04/20 04:00 97.2 95 18 122/57 (78) 100 04/04/20 02:59 101 20 35 04/04/20 00:00 102 04/04/20 00:00 Mechanical Ventilator 04/04/20 00:00 98.8 100 21 120/65 (83) 100 04/03/20 22:57 105 19 35 Intake and Output 04/03/20 04/04/20 19:00 07:00 Intake Total 1685 ml 1415 ml Output Total 350 ml 1350 ml Balance 1335 ml 65 ml Free Water 60 ml 90 ml IV Total 785 ml 485 ml Tube Feeding 840 ml 840 ml Output Urine Total 350 ml 1350 ml # Bowel Movements 4 4 Laboratory Tests 04/03/20 22:53: POC Whole Blood Glucose 167H 04/04/20 03:20: White Blood Count 19.7H, Red Blood Count 2.43L, Hemoglobin 6.6*L, Hematocrit 20.2L, Mean Corpuscular Volume 83, Mean Corpuscular Hemoglobin 27.1, Mean Corpuscular Hemoglobin Concent 32.6, Red Cell Distribution Width 18.8H, Platelet Count 411, Mean Platelet Volume 6.6, Neutrophils (%) (Auto) , Lymphocytes (%) (Auto) , Monocytes (%) (Auto) , Eosinophils (%) (Auto) , Basophils (%) (Auto) , Differential Total Cells Counted 100, Neutrophils % (Manual) 67, Lymphocytes % (Manual) 9L, Monocytes % (Manual) 14H, Eosinophils % (Manual) 10H, Basophils % (Manual) 0, Band Neutrophils 0, Platelet Estimate Adequate, Platelet Morphology Normal, Hypochromasia 1+, Anisocytosis 1+, Erythrocyte Sedimentation Rate 142H, Sodium Level 148H, Potassium Level 4.3, Chloride Level 111H, Carbon Dioxide Level 32, Anion Gap 5, Blood Urea Nitrogen 57H, Creatinine 1.3, Estimat Glomerular Filtration Rate 48.8, Glucose Level 142H, Calcium Level 8.4L, Phosphorus Level 4.4, Magnesium Level 2.2, Total Bilirubin 0.2, Aspartate Amino Transf (AST/SGOT) 22, Alanine Aminotransferase (ALT/SGPT) 45, Alkaline Phosphatase 84, C-Reactive Protein, Quantitative 14.2H, Total Protein 6.7, Albumin 1.4L, Globulin 5.3, Albumin/Globulin Ratio 0.3L, Prealbumin [Pending] 04/04/20 05:10: POC Whole Blood Glucose 155H 04/04/20 21:50: Vancomycin Level Trough [Pending] Height (Feet): 5 Height (Inches): 5.00 Weight (Pounds): 147 Objective elderly woman NCAT supple, trach CTA RR abd soft, (+)GT no edema (+) multiple decubs Assessment/Plan Assessment/Plan: Assessment History of intracranial hemorrhage, s/p gastrostomy, OB (+) stools status post tracheostomy, chronic obstructive pulmonary disease, type 2 diabetes, Parkinson's, gout, glaucoma, history of stage IV sacral decubitus ulceration, gout Fever Low albumin Recommendations - continue TF - GT care - elevate HOB - Monitor H&H - no transfusion per end of life planning - no GI w/u per family decision I will be away until Friday. Coverage available. Call if GI issues. Deanne Rivera MD Apr 04, 2020 22:20
[2020-04-05] VITALS: BP 131/70
[2020-04-05 04:00] VITALS: BP 123/69
--- NOTE | 2020-04-05 04:50 | NUR ---
NURSE NOTES: Cleaned pt, reposition pt per protocol, Sponge bath given. Not in respiratory distress o2 sat-100%. Continue to plan of care.
[2020-04-05] MEDS: dilTIAZem HCl 30mg tab GT SCH ×2 (05:23→05:33)
[2020-04-05] MEDS: NovoLOG Insulin Flexpen SUBQ SCH (05:24)
[2020-04-05 05:58] LABS: HEMATOCRIT 24.5 % (37.0-47.0); HEMOGLOBIN 8.1 G/DL (12.0-16.0); MEAN CORPUSCULAR VOLUME 80 FL (80-99); PLATELET COUNT 434 K/UL (150-450); RED BLOOD COUNT 3.05 M/UL (4.20-5.40); RED CELL DISTRIBUTION WIDTH 20.7 % (11.6-14.8); WHITE BLOOD COUNT 20.8 K/UL (4.8-10.8)
--- NOTE | 2020-04-05 06:05 | NUR ---
NURSE NOTES: Pt is seen sleeping comfortable in bed. O2 sat- 100%. No signs of respiratory distress.
[2020-04-05 06:29] LABS: ALANINE AMINOTRANSFERASE 38 U/L (12-78); ALBUMIN 1.6 G/DL (3.4-5.0); ALBUMIN/GLOBULIN RATIO 0.3 (1.0-2.7); ALKALINE PHOSPHATASE 82 U/L (46-116); ASPARTATE AMINO TRANSFERASE 16 U/L (15-37); BILIRUBIN,TOTAL 0.3 MG/DL (0.2-1.0); BLOOD UREA NITROGEN 43 mg/dL (7-18); CALCIUM 8.5 MG/DL (8.5-10.1); CARBON DIOXIDE 28 MMOL/L (21-32); CHLORIDE 115 MMOL/L (98-107); CREATININE 0.9 MG/DL (0.55-1.30); PHOSPHORUS 3.8 MG/DL (2.5-4.9); POTASSIUM 3.8 MMOL/L (3.5-5.1); SODIUM 153 MMOL/L (136-145)
--- NOTE | 2020-04-05 06:42 | General Progress Note ---
Subjective ROS Limited/Unobtainable: No Allergies: Coded Allergies: No Known Allergies (Unverified , 03/11/20) Objective Last 24 Hour Vital Signs Date Time Temp Pulse Resp B/P (MAP) Pulse Ox O2 Delivery O2 Flow Rate FiO2 04/05/20 05:33 68 138/69 04/05/20 04:31 112 04/05/20 04:00 35 04/05/20 04:00 Mechanical Ventilator 04/05/20 04:00 99.7 103 18 123/69 (87) 99 04/05/20 03:12 105 28 35 04/05/20 00:00 98.4 109 19 131/70 (90) 100 04/05/20 00:00 Mechanical Ventilator 04/05/20 00:00 35 04/05/20 00:00 113 04/04/20 23:12 103 24 35 04/04/20 21:58 114 134/68 04/04/20 20:00 97.2 75 20 134/82 (99) 95 04/04/20 20:00 35 04/04/20 20:00 113 04/04/20 20:00 Mechanical Ventilator 04/04/20 19:17 103 24 35 04/04/20 16:16 118 04/04/20 16:00 Mechanical Ventilator 04/04/20 16:00 35 04/04/20 16:00 99.1 95 21 128/79 (95) 100 04/04/20 15:57 104 04/04/20 15:30 101 22 35 04/04/20 14:00 99 120/63 04/04/20 12:00 98.1 100 20 120/63 (82) 99 04/04/20 12:00 35 04/04/20 12:00 Mechanical Ventilator 04/04/20 12:00 99 04/04/20 11:39 98.4 04/04/20 11:38 98 19 35 04/04/20 08:00 99.0 112 21 145/71 (95) 99 04/04/20 08:00 101 04/04/20 08:00 35 04/04/20 08:00 Mechanical Ventilator 04/04/20 07:09 105 24 35 Intake and Output 04/04/20 04/05/20 18:59 06:59 Intake Total 1140 ml 1000 ml Output Total 1400 ml 2000 ml Balance -260 ml -1000 ml Free Water 300 ml 120 ml IV Total 110 ml Tube Feeding 840 ml 770 ml Output Urine Total 1400 ml 2000 ml # Bowel Movements 5 Laboratory Tests 04/04/20 21:50: Vancomycin Level Trough 18.9H 04/04/20 23:25: POC Whole Blood Glucose 151H 04/05/20 04:00: White Blood Count 20.8H, Red Blood Count 3.05L, Hemoglobin 8.1L, Hematocrit 24.5L, Mean Corpuscular Volume 80, Mean Corpuscular Hemoglobin 26.5L, Mean Corpuscular Hemoglobin Concent 33.1, Red Cell Distribution Width 20.7H, Platelet Count 434, Mean Platelet Volume 6.3L, Neutrophils (%) (Auto) , Lymphocytes (%) ( Auto) , Monocytes (%) (Auto) , Eosinophils (%) (Auto) , Basophils (%) (Auto) , Neutrophils % (Manual) [Pending], Lymphocytes % (Manual) [Pending], Platelet Estimate [Pending], Platelet Morphology [Pending], Sodium Level 153H, Potassium Level 3.8, Chloride Level 115H, Carbon Dioxide Level 28, Blood Urea Nitrogen 43H , Creatinine 0.9, Estimat Glomerular Filtration Rate > 60, Glucose Level 162H, Calcium Level 8.5, Phosphorus Level 3.8, Magnesium Level 2.0, Total Bilirubin 0.3, Aspartate Amino Transf (AST/SGOT) 16, Alanine Aminotransferase (ALT/SGPT) 38, Alkaline Phosphatase 82, Total Protein 7.1, Albumin 1.6L, Globulin 5.5, Albumin/Globulin Ratio 0.3L 04/05/20 05:22: POC Whole Blood Glucose 139H Height (Feet): 5 Height (Inches): 5.00 Weight (Pounds): 147 General Appearance: no apparent distress EENT: normal ENT inspection Neck: supple Cardiovascular: normal rate Respiratory/Chest: decreased breath sounds Abdomen: normal bowel sounds, non tender, soft Extremities: non-tender Assessment/Plan Assessment/Plan: Assessment History of intracranial hemorrhage, s/p gastrostomy, OB (+) stools status post tracheostomy, chronic obstructive pulmonary disease, type 2 diabetes, Parkinson's, gout, glaucoma, history of stage IV sacral decubitus ulceration, gout Fever Low albumin Recommendations - continue TF - GT care - elevate HOB - Monitor H&H - no transfusion per end of life planning - no GI w/u per family decision Elias Easley MD Apr 05, 2020 06:42
--- NOTE | 2020-04-05 07:00 | NUR ---
NURSE HAND-OFF REPORT: Important Events on Shift: STAc, end of life planning. Patient Status: Guarding Diet: GTF Pending Orders: None Pending Results/Labs :None Pending MD notification: None Latest Vital Signs: Temperature 99.7 , Pulse 68 , B/P 138 /69 , Respiratory Rate 18 , O2 SAT 99 , Mechanical Ventilator, O2 Flow Rate . Vital Sign Comment: WNL EKG Rhythm: Sinus Tachycardia Rhythm change?: N MD Notified?: N -Dr. Hill MARQUES Response: Latest Ochoa Fall Score: 70 Fall Risk: High Risk Safety Measures: Call light Within Reach, Bed Alarm Zone 2, Side Rails Side Rails x3, Bed position Low and Locked. Fall Precautions: Yellow Socks Yellow Gown Door Sign Patient Fall Education Report given to [ADILENE Noonan].
--- NOTE | 2020-04-05 07:22 | NUR ---
NURSE NOTES: Received report from ADILENE Mancera. Patient is resting in bed, in stable condition. No s/sx of SOB, breathing is even and unlabored, patient is on vent settings as ordered. Patient is nonverbal, observed no presence of pain or discomfort at this time. Bed is in lowest position, brakes engaged. Call light is kept within easy reach. Will continue to monitor patient.
[2020-04-05 08:00] VITALS: BP 124/73
[2020-04-05] MEDS: Zinc Sulfate 220mg GT SCH (08:30)
[2020-04-05] MEDS: Ascorbic Acid 500mg tab GT SCH (08:30)
[2020-04-05] MEDS: Acetaminophen 650mg/20.3ml GT PRN (08:31)
--- NOTE | 2020-04-05 08:32 | Infectious Diseases Prog Note ---
Assessment/Plan 74yo F with: Febrile, persistent - most likely 2/2 worsening sacral decub, all other w/u neg Leukocytosis, persistent ; increasing Thrombocytosis, increasing >> improving Sepsis Left lower lung infiltrate Acute on chronic resp failure SP trach MRSA bacteremia DEBBIE cancelled as family refused RML cavitation, not seen on CT chest 03/11 BCx +MRSA Resp cx +PsA (S-Zosyn, I-merissa and cefepime) UCx 30-40k ACB (colonizer) COVID rapid Ag neg CXR: Midline tracheostomy. Small left pleural effusion. Hyperinflation with flattening of the diaphragms and emphysema, consistent with COPD. No lobar infiltrate. 03/12 BCx NTD 03/13 C.dif neg 03/13 BCx NTD 03/14 BCx NTD 03/14 CT A/P: 1. Sacrococcygeal decubitus ulcers with associated osteomyelitis. 2. Small left pleural effusion. Left lower lobe atelectasis. 3. Bladder wall thickening. Foci of gas in the bladder. Correlate for recent instrumentation versus cystitis. Lung bases: Small nodular focus of cavitation in the right middle lobe. This may be secondary to infection. Recommend continued follow-up. Emphysematous changes in the lung bases. 1.2 cm nodular focus with some central cavitation in the right middle lobe. Pleural space: Small left pleural effusion. Left lower lobe atelectasis. 03/14 TTE: No vegetations, thickened valves 03/17 CXR: 1. Unchanged tracheostomy. 2. Mildly more pronounced linear interstitial prominence could represent atypical infection or interstitial pulmonary edema in the proper clinical context. 3. Unchanged hyperinflation. 4. Unchanged mild retrocardiac atelectasis without or with consolidation. 03/20 BCx NTD 03/20 CT chest: Centrilobular emphysema seen throughout both lungs with with an upper lobe predominance, indicating extensive COPD changes. Mosaic attenuation pattern in the upper lobes probably related to COPD, although this is a nonspecific finding. Dense consolidation and atelectasis of much of the left lower lobe. This could represent pneumonia. Groundglass opacities in the inferior left upper lobe. These could represent areas of acute inflammation, or could represent post inflammatory changes. 8mm nodule in the right middle lobe, also described on prior CT scan. This previously demonstrated a cavity. Cavitation currently not evident. Differential considerations include neoplasm, acute or chronic inflammatory lesion. Recommend at a minimum follow-up CT scan in 6 months 03/21 Resp cx +Serratia and PsA (S-Zosyn) 03/21 SPC changed 03/22 UA/UCx +yeast 03/27 Indium scan: Limited exam, as described. No definite abnormality to explain stated clinical history of leukocytosis 04/01 BCx NTD 04/02 UA 20-30 WBC 04/02 Resp cx +saunders-R Kleb pna (I-gent, otherwise R) & PsA (S-cefepime, Zosyn) R/o C.dif 03/29 C.dif neg Worsening sacral decub ulceration, likely cause of ongoing low-grade fevers BUE and BLE neg for DVT 03/21 MRSA nares positive VDRF S/p trach/PEG Bed bound Sacral decub ulceration w/ underlying OM Plan: Start cefepime to cover for PsA in resp cx given ongoing fevers Cont Vancomycin IV #6 (abx d#11) for MRSA bacteremia - Duration 6 weeks given inability to r/o endocarditis without DEBBIE, end date = 04/21/20 Resp cx from 04/02 + CRE/saunders-R Kleb pna, asked micro lab to perform additional sensi on amikacin, colistin, polyB and send out for Avyvaz/Zerbaxa Trend acute anemia and AMARJIT Trend WBC Trend temp curve Appreciate Wound Care/Surgery input on worsening sacral decub - this is likely the cause of ongoing fevers Agree with hospice evaluation if family decides 03/31 SP linezolid #8 03/30 SP levofloxacin #7 for ACB in UCx 03/28 SP Zosyn #10 for pna 03/22 Sp IV vancomycin #11 03/14 SP cefepime #4 Monitor CBC/CMP Monitor temp curve, hemodynamics Monitor resp status repeat cultures D/w RN Thank you for this consult. [facility] will continue to follow. Subjective Allergies: Coded Allergies: No Known Allergies (Unverified , 03/11/20) No fevers documented Per Pulm note, family considering end of life planning WBC 20, overall stable CXR wo changes Resp cx +saunders-R Kleb pna, asking for expanded abx sensi on it, also with PsA S- cefepime/Zosyn Pt calm in bed Per RT, pt with mod thick secretions which are overall improved from prior Objective Last 24 Hour Vital Signs Date Time Temp Pulse Resp B/P (MAP) Pulse Ox O2 Delivery O2 Flow Rate FiO2 04/05/20 05:33 68 138/69 04/05/20 04:31 112 04/05/20 04:00 35 04/05/20 04:00 Mechanical Ventilator 04/05/20 04:00 99.7 103 18 123/69 (87) 99 04/05/20 03:12 105 28 35 04/05/20 00:00 98.4 109 19 131/70 (90) 100 04/05/20 00:00 Mechanical Ventilator 04/05/20 00:00 35 04/05/20 00:00 113 04/04/20 23:12 103 24 35 04/04/20 21:58 114 134/68 04/04/20 20:00 97.2 75 20 134/82 (99) 95 04/04/20 20:00 35 04/04/20 20:00 113 04/04/20 20:00 Mechanical Ventilator 04/04/20 19:17 103 24 35 04/04/20 16:16 118 04/04/20 16:00 Mechanical Ventilator 04/04/20 16:00 35 04/04/20 16:00 99.1 95 21 128/79 (95) 100 04/04/20 15:57 104 04/04/20 15:30 101 22 35 04/04/20 14:00 99 120/63 04/04/20 12:00 98.1 100 20 120/63 (82) 99 04/04/20 12:00 35 04/04/20 12:00 Mechanical Ventilator 04/04/20 12:00 99 04/04/20 11:39 98.4 04/04/20 11:38 98 19 35 Height (Feet): 5 Height (Inches): 5.00 Weight (Pounds): 147 Gen: NAD in bed HEENT: NCAT, trach + secretions CV: RRR Pulm: CTAB Abd: Soft, NTND, +PEG +SPC Ext: No c/c/e Skin: Stage 4 sacral decub ulceration - larger than on admission but clean Neuro: Awake, not interactive Microbiology Date/Time Source Procedure Growth Status 04/02/20 15:30 Sputum Gram Stain - Final Resulted 04/02/20 15:30 Sputum Culture - Preliminary Klebsiella Pneumoniae Gram Negative Bacillus 2 Resulted Laboratory Tests Test 04/04/20 21:50 04/04/20 23:25 04/05/20 04:00 04/05/20 05:22 Vancomycin Level Trough 18.9 ug/mL (5.0-12.0) H POC Whole Blood Glucose 151 MG/DL (74-106) H 139 MG/DL (74-106) H White Blood Count 20.8 K/UL (4.8-10.8) H Red Blood Count 3.05 M/UL (4.20-5.40) L Hemoglobin 8.1 G/DL (12.0-16.0) L Hematocrit 24.5 % (37.0-47.0) L Mean Corpuscular Volume 80 FL (80-99) Mean Corpuscular Hemoglobin 26.5 PG (27.0-31.0) L Mean Corpuscular Hemoglobin Concent 33.1 G/DL (32.0-36.0) Red Cell Distribution Width 20.7 % (11.6-14.8) H Platelet Count 434 K/UL (150-450) Mean Platelet Volume 6.3 FL (6.5-10.1) L Neutrophils (%) (Auto) % (45.0-75.0) Lymphocytes (%) (Auto) % (20.0-45.0) Monocytes (%) (Auto) % (1.0-10.0) Eosinophils (%) (Auto) % (0.0-3.0) Basophils (%) (Auto) % (0.0-2.0) Neutrophils % (Manual) Pending Lymphocytes % (Manual) Pending Platelet Estimate Pending Platelet Morphology Pending Sodium Level 153 MMOL/L (136-145) H Potassium Level 3.8 MMOL/L (3.5-5.1) Chloride Level 115 MMOL/L (98-107) H Carbon Dioxide Level 28 MMOL/L (21-32) Blood Urea Nitrogen 43 mg/dL (7-18) H Creatinine 0.9 MG/DL (0.55-1.30) Estimat Glomerular Filtration Rate > 60 mL/min (>60) Glucose Level 162 MG/DL (74-106) H Calcium Level 8.5 MG/DL (8.5-10.1) Phosphorus Level 3.8 MG/DL (2.5-4.9) Magnesium Level 2.0 MG/DL (1.8-2.4) Total Bilirubin 0.3 MG/DL (0.2-1.0) Aspartate Amino Transf (AST/SGOT) 16 U/L (15-37) Alanine Aminotransferase (ALT/SGPT) 38 U/L (12-78) Alkaline Phosphatase 82 U/L (46-116) Total Protein 7.1 G/DL (6.4-8.2) Albumin 1.6 G/DL (3.4-5.0) L Globulin 5.5 g/dL Albumin/Globulin Ratio 0.3 (1.0-2.7) L Current Medications Medications (Trade) Dose Ordered Sig/Zaki Route PRN Reason Start Time Stop Time Status Last Admin Dose Admin Acetaminophen (Tylenol) 650 mg Q6H PRN GT Temp >100.5, Mild Pain 03/11/20 06:30 04/10/20 06:29 04/04/20 11:09 Ascorbic Acid (Vitamin C) 500 mg DAILY GT 04/04/20 09:00 04/27/20 08:59 04/04/20 08:52 Calcitonin [place] (Miacalcin) 1 sprays DAILY NASAL 03/13/20 11:00 06/11/20 10:59 04/04/20 08:52 Dextrose (Dextrose 50%) 25 ml Q30M PRN IV Hypoglycemia 03/13/20 23:30 06/11/20 23:29 Dextrose (Dextrose 50%) 50 ml Q30M PRN IV Hypoglycemia 03/13/20 23:30 06/11/20 23:29 Diltiazem HCl (Cardizem Tab) 30 mg EVERY 8 HOURS GT 03/24/20 14:00 04/23/20 13:59 04/05/20 05:33 Diphenhydramine HCl (Benadryl) 25 mg Q8H PRN ORAL Itching 03/14/20 15:00 04/13/20 14:59 03/14/20 15:50 Famotidine (Pepcid) 20 mg BID GT 03/18/20 18:00 06/09/20 08:59 04/04/20 08:51 Insulin Aspart (NovoLOG) Q6HR SUBQ 03/14/20 00:00 06/12/20 00:00 04/04/20 23:28 Multivitamins (Multivitamins) 1 tab DAILY GT 04/04/20 09:00 04/27/20 08:59 04/04/20 08:51 Ondansetron HCl (Zofran) 4 mg Q4H PRN IVP Nausea & Vomiting 03/11/20 06:30 04/10/20 06:29 Vancomycin HCl (Vanco pharmacy to dose) 1 ea DAILY PRN MISC Per rx protocol 03/31/20 09:00 04/30/20 08:59 Vancomycin HCl 500 mg/Sodium Chloride 110 ml @ 110 mls/hr Q12H IVPB 04/04/20 23:00 04/09/20 22:59 04/04/20 22:04 Zinc Sulfate (Zinc Sulfate) 220 mg DAILY GT 04/04/20 09:00 04/07/20 09:00 04/04/20 08:51 Shirley Villegas M.D. Apr 05, 2020 08:32
--- NOTE | 2020-04-05 09:18 | Cardiac Electrophysiology PN ---
Assessment/Plan Assessment/Plan 1. MRSA bacteremia. Most recent blood culture from March 13, 2020 showed no growth. Echo showed EF of 60-65% with no clear vegetation. DEBBIE cancelled as family refused. On iv Abx per ID. Indium scan no clear source 2. Sinus tach due to sepsis. No atrial fib or SVT on Cardizem 30 tid 3. VDRF , status post tracheostomy.On 40% Fio2 4. Dysphagia, status post PEG placement. 5. History of intracranial hemorrhage. 6. Diabetes. 7. Glaucoma. 8. Sacral decubitus stage IV. 9. Hypertension, on Cardizem 10. Transient SVT. On Cardizem 30 tid 11. Anemia, s/p PRBC DW RN and Dr Villegas Subjective Subjective On the Vent in sinus tach Fio2 35% and PEEP 5. Family refused DEBBIE. Had episodes of SVT lasting less than 20 seconds . Indium scan > no clear source. Hospice eval pending if family agrees. On Abx per ID S/P PRBC again yesterday. Still full code Objective Last 24 Hour Vital Signs Date Time Temp Pulse Resp B/P (MAP) Pulse Ox O2 Delivery O2 Flow Rate FiO2 04/05/20 08:00 35 04/05/20 08:00 100.9 103 20 124/73 (90) 100 04/05/20 08:00 Mechanical Ventilator 04/05/20 05:33 68 138/69 04/05/20 04:31 112 04/05/20 04:00 35 04/05/20 04:00 Mechanical Ventilator 04/05/20 04:00 99.7 103 18 123/69 (87) 99 04/05/20 03:12 105 28 35 04/05/20 00:00 98.4 109 19 131/70 (90) 100 04/05/20 00:00 Mechanical Ventilator 04/05/20 00:00 35 04/05/20 00:00 113 04/04/20 23:12 103 24 35 04/04/20 21:58 114 134/68 04/04/20 20:00 97.2 75 20 134/82 (99) 95 04/04/20 20:00 35 04/04/20 20:00 113 04/04/20 20:00 Mechanical Ventilator 04/04/20 19:17 103 24 35 04/04/20 16:16 118 04/04/20 16:00 Mechanical Ventilator 04/04/20 16:00 35 04/04/20 16:00 99.1 95 21 128/79 (95) 100 04/04/20 15:57 104 04/04/20 15:30 101 22 35 04/04/20 14:00 99 120/63 04/04/20 12:00 98.1 100 20 120/63 (82) 99 04/04/20 12:00 35 04/04/20 12:00 Mechanical Ventilator 04/04/20 12:00 99 04/04/20 11:39 98.4 04/04/20 11:38 98 19 35 Intake and Output 04/04/20 04/05/20 18:59 06:59 Intake Total 1140 ml 1070 ml Output Total 1400 ml 2000 ml Balance -260 ml -930 ml Free Water 300 ml 120 ml IV Total 110 ml Tube Feeding 840 ml 840 ml Output Urine Total 1400 ml 2000 ml # Bowel Movements 5 Laboratory Tests Test 04/04/20 21:50 04/04/20 23:25 04/05/20 04:00 04/05/20 05:22 Vancomycin Level Trough 18.9 ug/mL (5.0-12.0) H POC Whole Blood Glucose 151 MG/DL (74-106) H 139 MG/DL (74-106) H White Blood Count 20.8 K/UL (4.8-10.8) H Red Blood Count 3.05 M/UL (4.20-5.40) L Hemoglobin 8.1 G/DL (12.0-16.0) L Hematocrit 24.5 % (37.0-47.0) L Mean Corpuscular Volume 80 FL (80-99) Mean Corpuscular Hemoglobin 26.5 PG (27.0-31.0) L Mean Corpuscular Hemoglobin Concent 33.1 G/DL (32.0-36.0) Red Cell Distribution Width 20.7 % (11.6-14.8) H Platelet Count 434 K/UL (150-450) Mean Platelet Volume 6.3 FL (6.5-10.1) L Neutrophils (%) (Auto) % (45.0-75.0) Lymphocytes (%) (Auto) % (20.0-45.0) Monocytes (%) (Auto) % (1.0-10.0) Eosinophils (%) (Auto) % (0.0-3.0) Basophils (%) (Auto) % (0.0-2.0) Neutrophils % (Manual) Pending Lymphocytes % (Manual) Pending Platelet Estimate Pending Platelet Morphology Pending Sodium Level 153 MMOL/L (136-145) H Potassium Level 3.8 MMOL/L (3.5-5.1) Chloride Level 115 MMOL/L (98-107) H Carbon Dioxide Level 28 MMOL/L (21-32) Blood Urea Nitrogen 43 mg/dL (7-18) H Creatinine 0.9 MG/DL (0.55-1.30) Estimat Glomerular Filtration Rate > 60 mL/min (>60) Glucose Level 162 MG/DL (74-106) H Calcium Level 8.5 MG/DL (8.5-10.1) Phosphorus Level 3.8 MG/DL (2.5-4.9) Magnesium Level 2.0 MG/DL (1.8-2.4) Total Bilirubin 0.3 MG/DL (0.2-1.0) Aspartate Amino Transf (AST/SGOT) 16 U/L (15-37) Alanine Aminotransferase (ALT/SGPT) 38 U/L (12-78) Alkaline Phosphatase 82 U/L (46-116) Total Protein 7.1 G/DL (6.4-8.2) Albumin 1.6 G/DL (3.4-5.0) L Globulin 5.5 g/dL Albumin/Globulin Ratio 0.3 (1.0-2.7) L Microbiology Date/Time Source Procedure Growth Status 04/02/20 15:30 Sputum Gram Stain - Final Resulted 04/02/20 15:30 Sputum Culture - Preliminary Klebsiella Pneumoniae Pseudomonas Aeruginosa Resulted Objective HEAD AND NECK: No JVD. LUNGS: Coarse rhonchi. Status post tracheostomy. CARDIOVASCULAR: Regular S1 and S2 with no gallop or rub. Status post PEG. EXTREMITIES: 1+ pitting edema with sacral decubitus. Shay Alejandre MD Apr 05, 2020 09:18
[2020-04-05] MEDS: Vancomycin 500 MG in NS 110 ML IVPB SCH (11:22)
--- NOTE | 2020-04-05 11:47 | Pulmonolgy Critical Care Note ---
Critical Care - Asmt/Plan Problems: (1) Acute on chronic respiratory failure (2) Persistent fever (3) Sepsis (4) Staphylococcus aureus bacteremia (5) Chronic respiratory failure requiring continuous mechanical ventilation through tracheostomy (6) Stage 4 decubitus ulcer (7) Diabetes mellitus (8) Parkinson's disease dementia (9) Gout (10) Idiopathic obstructive hydrocephalus (11) Severe protein-calorie malnutrition (12) History of intracranial hemorrhage (13) Chronic vegetative state Renal: decrease IV fluid Infectious Disease: other - dc antibicotics, since the pt is comfort care only now Gastrointestinal: hold feedings Neurologic: PRN Ativan, PRN Morphine, keep patient comfortable Prophylaxis: Protonix Time Spent (Minutes): 40 Notes Reviewed: security guards dispatcher, cardio, renal Discussed with: nurses, consultants, case plannerswitchboard manager - Objective Last 24 Hour Vital Signs Date Time Temp Pulse Resp B/P (MAP) Pulse Ox O2 Delivery O2 Flow Rate FiO2 04/05/20 09:01 98.1 04/05/20 08:00 107 04/05/20 08:00 35 04/05/20 08:00 100.9 103 20 124/73 (90) 100 04/05/20 08:00 Mechanical Ventilator 04/05/20 05:33 68 138/69 04/05/20 04:31 112 04/05/20 04:00 35 04/05/20 04:00 Mechanical Ventilator 04/05/20 04:00 99.7 103 18 123/69 (87) 99 04/05/20 03:12 105 28 35 04/05/20 00:00 98.4 109 19 131/70 (90) 100 04/05/20 00:00 Mechanical Ventilator 04/05/20 00:00 35 04/05/20 00:00 113 04/04/20 23:12 103 24 35 04/04/20 21:58 114 134/68 04/04/20 20:00 97.2 75 20 134/82 (99) 95 04/04/20 20:00 35 04/04/20 20:00 113 04/04/20 20:00 Mechanical Ventilator 04/04/20 19:17 103 24 35 04/04/20 16:16 118 04/04/20 16:00 Mechanical Ventilator 04/04/20 16:00 35 04/04/20 16:00 99.1 95 21 128/79 (95) 100 04/04/20 15:57 104 04/04/20 15:30 101 22 35 04/04/20 14:00 99 120/63 04/04/20 12:00 98.1 100 20 120/63 (82) 99 04/04/20 12:00 35 04/04/20 12:00 Mechanical Ventilator 04/04/20 12:00 99 Status: obtunded Condition: critical HEENT: atraumatic Lungs: clear Heart: HR/BP stable Abdomen: soft, feeding tube Extremities: no C/C/E, edema Micro: Microbiology Date/Time Source Procedure Growth Status 04/02/20 15:30 Sputum Gram Stain - Final Resulted 04/02/20 15:30 Sputum Culture - Preliminary Klebsiella Pneumoniae Pseudomonas Aeruginosa Resulted Accucheck: 139 Critical Care - Subjective ROS Limited/Unobtainable: Yes Interval Events: Pt's daughter came last night with other family members to say the last good bye. She is coming today at 2 pm to be there when she is taken off the ventilator. FI02: 35 Vent Support Breath Rate: 16 Vent Support Mode: AC Vent Tidal Volume: 400 Sputum Amount: Moderate PEEP: 5.0 PIP: 17 Tube Feeding Amount: 70 I&O: Intake and Output 04/04/20 04/05/20 19:00 07:00 Intake Total 1140 ml 1070 ml Output Total 1400 ml 2000 ml Balance -260 ml -930 ml Free Water 300 ml 120 ml IV Total 110 ml Tube Feeding 840 ml 840 ml Output Urine Total 1400 ml 2000 ml # Bowel Movements 5 Labs: Laboratory Tests Test 04/04/20 21:50 04/04/20 23:25 04/05/20 04:00 04/05/20 05:22 Vancomycin Level Trough 18.9 ug/mL (5.0-12.0) H POC Whole Blood Glucose 151 MG/DL (74-106) H 139 MG/DL (74-106) H White Blood Count 20.8 K/UL (4.8-10.8) H Red Blood Count 3.05 M/UL (4.20-5.40) L Hemoglobin 8.1 G/DL (12.0-16.0) L Hematocrit 24.5 % (37.0-47.0) L Mean Corpuscular Volume 80 FL (80-99) Mean Corpuscular Hemoglobin 26.5 PG (27.0-31.0) L Mean Corpuscular Hemoglobin Concent 33.1 G/DL (32.0-36.0) Red Cell Distribution Width 20.7 % (11.6-14.8) H Platelet Count 434 K/UL (150-450) Mean Platelet Volume 6.3 FL (6.5-10.1) L Neutrophils (%) (Auto) % (45.0-75.0) Lymphocytes (%) (Auto) % (20.0-45.0) Monocytes (%) (Auto) % (1.0-10.0) Eosinophils (%) (Auto) % (0.0-3.0) Basophils (%) (Auto) % (0.0-2.0) Differential Total Cells Counted 100 Neutrophils % (Manual) 75 % (45-75) Lymphocytes % (Manual) 11 % (20-45) L Monocytes % (Manual) 8 % (1-10) Eosinophils % (Manual) 5 % (0-3) H Basophils % (Manual) 0 % (0-2) Band Neutrophils 1 % (0-8) Platelet Estimate Adequate Platelet Morphology Normal Hypochromasia 1+ Anisocytosis 2+ Sodium Level 153 MMOL/L (136-145) H Potassium Level 3.8 MMOL/L (3.5-5.1) Chloride Level 115 MMOL/L (98-107) H Carbon Dioxide Level 28 MMOL/L (21-32) Blood Urea Nitrogen 43 mg/dL (7-18) H Creatinine 0.9 MG/DL (0.55-1.30) Estimat Glomerular Filtration Rate > 60 mL/min (>60) Glucose Level 162 MG/DL (74-106) H Calcium Level 8.5 MG/DL (8.5-10.1) Phosphorus Level 3.8 MG/DL (2.5-4.9) Magnesium Level 2.0 MG/DL (1.8-2.4) Total Bilirubin 0.3 MG/DL (0.2-1.0) Aspartate Amino Transf (AST/SGOT) 16 U/L (15-37) Alanine Aminotransferase (ALT/SGPT) 38 U/L (12-78) Alkaline Phosphatase 82 U/L (46-116) Total Protein 7.1 G/DL (6.4-8.2) Albumin 1.6 G/DL (3.4-5.0) L Globulin 5.5 g/dL Albumin/Globulin Ratio 0.3 (1.0-2.7) L Patti Matta MD Apr 05, 2020 11:47
[2020-04-05] MEDS ORDERED: Morphine Sulfate 10mg/ml Inj IVP SCH (11:55)
[2020-04-05 12:00] VITALS: BP 136/73
[2020-04-05] MEDS ORDERED: Haloperidol 5mg/ml Inj IM PRN (12:00)
[2020-04-05] MEDS ORDERED: Rate Change Narcotic Drip MISC PRN (12:00)
[2020-04-05] MEDS ORDERED: Prochlorperazine 10mg tab ORAL PRN (12:00)
[2020-04-05] MEDS ORDERED: Glycopyrrolate 0.2mg/ml 1ml Vial IV PRN (12:00)
--- NOTE | 2020-04-05 12:00 | NUR ---
NURSE NOTES: Per Dr. Matta, ordered morphine drip at 5 mg/hr for comfort care. Pharmacist made aware. Noted.
--- NOTE | 2020-04-05 12:15 | Internal Med Progress Note ---
Subjective Date of Service: Apr 05, 2020 Physician Name Piyush Barajas Attending Physician Jesus Lutz MD Current Medications Medications (Trade) Dose Ordered Sig/Zaki Route PRN Reason Start Time Stop Time Status Last Admin Dose Admin Acetaminophen (Tylenol) 650 mg Q6H PRN GT Temp >100.5, Mild Pain 03/11/20 06:30 04/10/20 06:29 04/05/20 08:31 Artificial Tears (Akwa-Tears) 1 drop QIDPRN PRN BOTH EYES Dry Eyes 04/05/20 12:00 05/05/20 11:59 Cefepime HCl 1 gm/ Dextrose 55 ml @ 110 mls/hr Q24H IVPB 04/05/20 13:00 04/12/20 12:59 Dextrose (Dextrose 50%) 25 ml Q30M PRN IV Hypoglycemia 03/13/20 23:30 06/11/20 23:29 Dextrose (Dextrose 50%) 50 ml Q30M PRN IV Hypoglycemia 03/13/20 23:30 06/11/20 23:29 Glycopyrrolate (Robinul) 0.1 mg Q6H PRN IV excessive secretions 04/05/20 12:00 05/05/20 11:59 Haloperidol Lactate (Haldol) 1 mg Q30M PRN IM Agitation 04/05/20 12:00 05/20/20 11:59 Miscellaneous Medication (Narcotic Drip Rate Change) 1 ea DAILY PRN MISC To Patient Comfort 04/05/20 12:00 05/05/20 11:59 Miscellaneous Medication (Narcotic Shift Volume) 1 ea Q12HR@0700,1900 MISC 04/05/20 19:00 05/05/20 18:59 Morphine Sulfate 30 ml @ 5 mls/hr RESEARCH TEST ENGINE EVALUATOR Protocol PRN IV For Pain 04/05/20 12:00 04/07/20 11:59 Morphine Sulfate (Morphine Sulfate) 10 mg ONCE IVP 04/05/20 11:55 04/05/20 14:00 Ondansetron HCl (Zofran) 4 mg Q4H PRN IVP Nausea & Vomiting 03/11/20 06:30 04/10/20 06:29 Prochlorperazine (Compazine) 10 mg Q6H PRN ORAL Nausea & Vomiting 04/05/20 12:00 05/05/20 11:59 Allergies: Coded Allergies: No Known Allergies (Unverified , 03/11/20) ROS Limited/Unobtainable: Yes Subjective 74 YO F trach dependent admitted with hypoxic respiratory failure. Now pneumonia and sepsis. Cover for Int Med-Dr Lutz. Step down unit. Tracheostomy. Low grade fever to 100.9 F Objective Last Vital Signs Date Time Temp Pulse Resp B/P (MAP) Pulse Ox O2 Delivery O2 Flow Rate FiO2 04/05/20 09:01 98.1 04/05/20 08:00 107 04/05/20 08:00 35 04/05/20 08:00 20 124/73 (90) 100 04/05/20 08:00 Mechanical Ventilator Laboratory Tests Test 04/04/20 21:50 04/04/20 23:25 04/05/20 04:00 04/05/20 05:22 Vancomycin Level Trough 18.9 ug/mL (5.0-12.0) H POC Whole Blood Glucose 151 MG/DL (74-106) H 139 MG/DL (74-106) H White Blood Count 20.8 K/UL (4.8-10.8) H Red Blood Count 3.05 M/UL (4.20-5.40) L Hemoglobin 8.1 G/DL (12.0-16.0) L Hematocrit 24.5 % (37.0-47.0) L Mean Corpuscular Volume 80 FL (80-99) Mean Corpuscular Hemoglobin 26.5 PG (27.0-31.0) L Mean Corpuscular Hemoglobin Concent 33.1 G/DL (32.0-36.0) Red Cell Distribution Width 20.7 % (11.6-14.8) H Platelet Count 434 K/UL (150-450) Mean Platelet Volume 6.3 FL (6.5-10.1) L Neutrophils (%) (Auto) % (45.0-75.0) Lymphocytes (%) (Auto) % (20.0-45.0) Monocytes (%) (Auto) % (1.0-10.0) Eosinophils (%) (Auto) % (0.0-3.0) Basophils (%) (Auto) % (0.0-2.0) Differential Total Cells Counted 100 Neutrophils % (Manual) 75 % (45-75) Lymphocytes % (Manual) 11 % (20-45) L Monocytes % (Manual) 8 % (1-10) Eosinophils % (Manual) 5 % (0-3) H Basophils % (Manual) 0 % (0-2) Band Neutrophils 1 % (0-8) Platelet Estimate Adequate Platelet Morphology Normal Hypochromasia 1+ Anisocytosis 2+ Sodium Level 153 MMOL/L (136-145) H Potassium Level 3.8 MMOL/L (3.5-5.1) Chloride Level 115 MMOL/L (98-107) H Carbon Dioxide Level 28 MMOL/L (21-32) Blood Urea Nitrogen 43 mg/dL (7-18) H Creatinine 0.9 MG/DL (0.55-1.30) Estimat Glomerular Filtration Rate > 60 mL/min (>60) Glucose Level 162 MG/DL (74-106) H Calcium Level 8.5 MG/DL (8.5-10.1) Phosphorus Level 3.8 MG/DL (2.5-4.9) Magnesium Level 2.0 MG/DL (1.8-2.4) Total Bilirubin 0.3 MG/DL (0.2-1.0) Aspartate Amino Transf (AST/SGOT) 16 U/L (15-37) Alanine Aminotransferase (ALT/SGPT) 38 U/L (12-78) Alkaline Phosphatase 82 U/L (46-116) Total Protein 7.1 G/DL (6.4-8.2) Albumin 1.6 G/DL (3.4-5.0) L Globulin 5.5 g/dL Albumin/Globulin Ratio 0.3 (1.0-2.7) L Microbiology Date/Time Source Procedure Growth Status 04/02/20 15:30 Sputum Gram Stain - Final Resulted 04/02/20 15:30 Sputum Culture - Preliminary Klebsiella Pneumoniae Pseudomonas Aeruginosa Resulted Intake and Output 04/04/20 04/05/20 19:00 07:00 Intake Total 1140 ml 1070 ml Output Total 1400 ml 2000 ml Balance -260 ml -930 ml Free Water 300 ml 120 ml IV Total 110 ml Tube Feeding 840 ml 840 ml Output Urine Total 1400 ml 2000 ml # Bowel Movements 5 Objective PHYSICAL EXAMINATION: GENERAL: The patient is a thin-appearing female who is intubated and nonverbal. HEENT: Eyes, pupils are equal and responsive to light and accommodation. Extraocular movements are intact. NECK: Supple without lymphadenopathy. Tracheostomy is in place. CHEST: Mech vent; Diffuse wheezes bilaterally without rhonchi. CARDIOVASCULAR: Tachycardic, regular rhythm. S1, S2 are normal without murmurs, rubs, or gallops. ABDOMEN: Soft, nontender, and nondistended. Positive bowel sounds. No evidence of hepatosplenomegaly. Currently, no rebound or guarding noted. EXTREMITIES: Negative for clubbing, cyanosis, or edema. RECTAL/GENITAL: Not performed. NEUROLOGIC: Unable to assess. chest x-ray revealed left lower lobe consolidation consistent with pneumonia Assessment/Plan Assessment/Plan ASSESSMENT: This is a 74-year-old female. 1. Left lower lobe pneumonia=klebsiella and pseudamonas 2. Respiratory failure. 3. Hypernatremia. 4. Renal failure. 5. Hypoxemia. 6. Tracheostomy dependence. 7. Chronic obstructive pulmonary disease. 8. Diabetes type 2. 9. Parkinson disease. 10. Gout. 11. Glaucoma. 12. Sacral decubitus ulcer stage IV. 13. History of intracranial hemorrhage. 14. Hydrocephalus. 15. sepsis=MRSA 16. UTI=MDR acenitobacter 17. Severe anemia TREATMENT: 1. Left lower lobe pneumonia/respiratory failure/sepsis. Pulmonary consultation =Dr. Patti Matta. ABX= continue cefepime; S/P linezolid and levaquin. S/P vanco and zosyn -see ID note Infectious disease=Dr. Villegas. We will follow recommendations of Infectious Disease and Pulmonary. 2. Hypernatremia. Hypernatremia may be secondary to renal failure versus dehydration. Nephrology consultation =. 3. Renal failure nephrology consultation =Dr. Huntley. 4. Tracheostomy dependence. 5. Chronic obstructive pulmonary disease. 6. Diabetes type 2. NovoLog sliding scale has been instituted. 7. Parkinson disease. 8. Gout. Continue allopurinol as above. 9. Glaucoma. 10. Sacral decubitus ulcer stage IV. A general surgery consultation has been obtained with Dr. Chris Hunter. 11. History of intracranial hemorrhage. 12. DEBBIE refused by patient's daughter; cardiology=Trista Alejandre and Rachel 13. S/P transfusion 2 units PRBC on 03/12; transfuse 1 unit PRBC today Piyush Barajas MD Apr 05, 2020 12:15
--- NOTE | 2020-04-05 12:53 | NUR ---
CASE MANAGEMENT:REVIEW 04/05/20 SI;SEPSIS. BACTEREMIA. TRACH/VENT DEPENDENT. 100.9 103 20 124/73 100% TRACH/VENT FIO2 35% WBC+20.8 H/H-8.1/24.5 NA+153 BUN+43 IS;MORPHINE GTT PRN IV CEFEPIME Q24 : SDU DCP: FROM [facility] PLAN: FAMILY CAME TO SEE PATIENT YESTERDAY SCHEDULED FOR TERMINAL EXTUBATION THIS AFTERNOON
[2020-04-05] MEDS: PCA Morphine 1mg/ml 30 ML IV PRN ×2 (12:57→18:39)
--- NOTE | 2020-04-05 12:57 | NUR ---
NURSE NOTES: Began morphine drip infusion for comfort care as ordered by Dr. Matta.
[2020-04-05] MEDS ORDERED: Cefepime HCl 1 GM in D5W 55 ML IVPB SCH (13:00)
--- NOTE | 2020-04-05 13:15 | NUR ---
NURSE NOTES: Called and informed Dr. Villegas that per Dr. Matta, patient was placed comfort care and per notes to discontinue antibiotics. Dr. Villegas acknowledged and ordered to discontinue antibiotics. Noted.
--- NOTE | 2020-04-05 14:13 | Nephrology Progress Note ---
Assessment/Plan Problem List: (1) Hypercalcemia (2) Hypernatremia (3) Sepsis (4) UTI (urinary tract infection) (5) Stage 4 decubitus ulcer (6) Acute on chronic respiratory failure (7) Chronic vegetative state (8) Severe protein-calorie malnutrition Assessment Azotemia and hypernatremia indicative of severe dehydration and free water deficit Acute on chronic respiratory failure, on mechanical ventilation Severe underlying anemia Sepsis Stage IV decubitus Idiopathic obstructive hydrocephalus, history of intracranial hemorrhage Diabetes mellitus Parkinson's disease, dementia Protein calorie malnutrition Plan April 05: Labs reviewed. D5W for hypernatremia started. Patient febrile and has leukocytosis. Continue per ID. Hemoglobin higher after transfusion. April 04: Labs reviewed. Renal parameters stable. Hemoglobin lower. Transfusion per PMD. Continue to monitor renal parameters. April 03: Labs reviewed. Serum potassium 5.4. Appears to be hemolysis. 30 g Kayexalate given. Continue to monitor renal parameters and electrolytes. Leukocytosis improved nevertheless persists. April 02: Labs reviewed. Serum creatinine normalized. Electrolytes within normal limit. Continue per current management. Patient remains full code. April 01: Labs reviewed. Serum creatinine up to 1.5 and potassium 5.2. Patient had episodes of hypotension. Will give fluid challenge. Continue to monitor renal parameters. Urine studies ordered. March 31: No labs done today. Remains full code. Trach and vent. Continue per consultants. March 30: Labs reviewed. Trach to vent. Remains full code. Labs reviewed. Renal parameters stable. March 29: Labs reviewed. Renal parameters stable. Continue per consultants. March 28: Labs reviewed. Stable from renal standpoint of view. March 27: Medication list reviewed. Labs reviewed. Stable from renal standpoint of view. March 26: Patient remains stable from renal standpoint of view. Labs and medication list reviewed. March 25: Labs reviewed. Renal parameters stable. Continue per consultants. March 24: Labs reviewed. Renal parameters stable. Continue per consultants. March 23: Labs reviewed. Renal parameters are stable. Continue per consultants. March 22: Labs reviewed. Serum sodium 151. D5W IV given. Continue per consultants. March 21: Labs reviewed. Renal parameters stable. Continue per consultants. March 20: Labs reviewed. Serum sodium lower 147. Serum calcium stable. Continue as is. March 19: Labs reviewed. Serum sodium unchanged at 150. Another liter of D5W ordered. Serum calcium stable. Continue as is. March 18: Labs reviewed. Serum sodium 150. 1 L of D5W IV ordered. Serum calcium stable. Continue as is. March 17: Labs reviewed. Renal parameters stable. Continue to watch serum calcium. Continue per consultants. March 16: Labs reviewed. Serum calcium stable. Medication list reviewed. Abnormal electrolyte addressed. Continue current management. March 15: Labs reviewed. Serum calcium lowering. Abnormal electrolytes addressed. Continue per consultants. March 14: Labs reviewed. Status quo. Serum calcium lowering. Magnesium and potassium supplement ordered. Continue per current treatment plan. March 13: 1 dose of pamidronate 60 mg for high calcium IV ordered. Labs reviewed. Medication list reviewed. Electrolytes improving. Hemoglobin higher after transfusion. Nasal calcitonin initiated March 12: D5W at 75 cc an hour Monitor electrolytes Monitor hemoglobin hematocrit Gastric support Consider transfusion Continue per orders Parameters for blood pressure medication Antibiotics per ID Subjective ROS Limited/Unobtainable: Yes Objective Objective Last 24 Hour Vital Signs Date Time Temp Pulse Resp B/P (MAP) Pulse Ox O2 Delivery O2 Flow Rate FiO2 04/05/20 12:00 99.7 94 20 136/73 (94) 100 04/05/20 12:00 35 04/05/20 12:00 Mechanical Ventilator 04/05/20 12:00 95 04/05/20 09:01 98.1 04/05/20 08:00 107 04/05/20 08:00 35 04/05/20 08:00 100.9 103 20 124/73 (90) 100 04/05/20 08:00 Mechanical Ventilator 04/05/20 05:33 68 138/69 04/05/20 04:31 112 04/05/20 04:00 35 04/05/20 04:00 Mechanical Ventilator 04/05/20 04:00 99.7 103 18 123/69 (87) 99 04/05/20 03:12 105 28 35 04/05/20 00:00 98.4 109 19 131/70 (90) 100 04/05/20 00:00 Mechanical Ventilator 04/05/20 00:00 35 04/05/20 00:00 113 04/04/20 23:12 103 24 35 04/04/20 21:58 114 134/68 04/04/20 20:00 97.2 75 20 134/82 (99) 95 04/04/20 20:00 35 04/04/20 20:00 113 04/04/20 20:00 Mechanical Ventilator 04/04/20 19:17 103 24 35 04/04/20 16:16 118 04/04/20 16:00 Mechanical Ventilator 04/04/20 16:00 35 04/04/20 16:00 99.1 95 21 128/79 (95) 100 04/04/20 15:57 104 04/04/20 15:30 101 22 35 Intake and Output 04/04/20 04/05/20 19:00 07:00 Intake Total 1140 ml 1070 ml Output Total 1400 ml 2000 ml Balance -260 ml -930 ml Free Water 300 ml 120 ml IV Total 110 ml Tube Feeding 840 ml 840 ml Output Urine Total 1400 ml 2000 ml # Bowel Movements 5 Laboratory Tests 04/04/20 21:50: Vancomycin Level Trough 18.9H 04/04/20 23:25: POC Whole Blood Glucose 151H 04/05/20 04:00: White Blood Count 20.8H, Red Blood Count 3.05L, Hemoglobin 8.1L, Hematocrit 24.5L, Mean Corpuscular Volume 80, Mean Corpuscular Hemoglobin 26.5L, Mean Corpuscular Hemoglobin Concent 33.1, Red Cell Distribution Width 20.7H, Platelet Count 434, Mean Platelet Volume 6.3L, Neutrophils (%) (Auto) , Lymphocytes (%) (Auto) , Monocytes (%) (Auto) , Eosinophils (%) (Auto) , Basophils (%) (Auto) , Differential Total Cells Counted 100, Neutrophils % (Manual) 75, Lymphocytes % (Manual) 11L, Monocytes % (Manual) 8, Eosinophils % (Manual) 5H, Basophils % (Manual) 0, Band Neutrophils 1, Platelet Estimate Adequate, Platelet Morphology Normal, Hypochromasia 1+, Anisocytosis 2+, Sodium Level 153H, Potassium Level 3.8, Chloride Level 115H, Carbon Dioxide Level 28, Blood Urea Nitrogen 43H, Creatinine 0.9, Estimat Glomerular Filtration Rate > 60, Glucose Level 162H, Calcium Level 8.5, Phosphorus Level 3.8, Magnesium Level 2.0, Total Bilirubin 0.3, Aspartate Amino Transf (AST/SGOT) 16, Alanine Aminotransferase (ALT/SGPT) 38, Alkaline Phosphatase 82, Total Protein 7.1, Albumin 1.6L, Globulin 5.5, Albumin/Globulin Ratio 0.3L 04/05/20 05:22: POC Whole Blood Glucose 139H Height (Feet): 5 Height (Inches): 5.00 Weight (Pounds): 147 General Appearance: no apparent distress, other - Febrile EENT: other - Trach to vent Cardiovascular: tachycardia Respiratory/Chest: decreased breath sounds Abdomen: distended Mathew Huntley MD Apr 05, 2020 14:13
--- NOTE | 2020-04-05 15:00 | NUR ---
NURSE NOTES: Discontinued vent and placed patient's T-piece on room air as ordered by Dr. Matta, per Dr. Matta patient is comfort care. RN, RT, and patient's daughter Ieekimberleea present at bedside. Noted.
--- NOTE | 2020-04-05 15:33 | NUR ---
NURSE NOTES: Patient noted as comfort care per Dr. Matta. Orders to place patient on T-piece for comfort care, clarified with Dr. Matta to place patient on oxygen or room air once placed on T-piece. Dr. Matta acknowledged and ordered to place patient's T-piece on room air. Order entered, noted, and carried out. Will continue to monitor patient.
[2020-04-05 16:00] VITALS: BP 98/59
--- NOTE | 2020-04-05 17:17 | Surgery Progress Note ---
Surgery Progress Note Subjective Additional Comments patient comfort care on t piece labs noted exam stable dressings going well Objective Last 24 Hour Vital Signs Date Time Temp Pulse Resp B/P (MAP) Pulse Ox O2 Delivery O2 Flow Rate FiO2 04/05/20 16:00 91 04/05/20 16:00 Mechanical Ventilator 04/05/20 16:00 98.1 91 20 98/59 (72) 100 04/05/20 13:15 98 T-Piece 8.0 28 04/05/20 12:00 99.7 94 20 136/73 (94) 100 04/05/20 12:00 35 04/05/20 12:00 Mechanical Ventilator 04/05/20 12:00 95 04/05/20 11:54 96 20 35 04/05/20 09:01 98.1 04/05/20 08:00 107 04/05/20 08:00 35 04/05/20 08:00 100.9 103 20 124/73 (90) 100 04/05/20 08:00 Mechanical Ventilator 04/05/20 07:55 95 19 35 04/05/20 05:33 68 138/69 04/05/20 04:31 112 04/05/20 04:00 35 04/05/20 04:00 Mechanical Ventilator 04/05/20 04:00 99.7 103 18 123/69 (87) 99 04/05/20 03:12 105 28 35 04/05/20 00:00 98.4 109 19 131/70 (90) 100 04/05/20 00:00 Mechanical Ventilator 04/05/20 00:00 35 04/05/20 00:00 113 04/04/20 23:12 103 24 35 04/04/20 21:58 114 134/68 04/04/20 20:00 97.2 75 20 134/82 (99) 95 04/04/20 20:00 35 04/04/20 20:00 113 04/04/20 20:00 Mechanical Ventilator 04/04/20 19:17 103 24 35 I&O Intake and Output 04/04/20 04/05/20 19:00 07:00 Intake Total 1140 ml 1070 ml Output Total 1400 ml 2000 ml Balance -260 ml -930 ml Free Water 300 ml 120 ml IV Total 110 ml Tube Feeding 840 ml 840 ml Output Urine Total 1400 ml 2000 ml # Bowel Movements 5 Dressing: saturated Cardiovascular: RSR Respiratory: decreased breath sounds Abdomen: non-tender, present bowel sounds Extremities: no edema, no tenderness Laboratory Tests Test 04/04/20 21:50 04/04/20 23:25 04/05/20 04:00 04/05/20 05:22 Vancomycin Level Trough 18.9 ug/mL (5.0-12.0) H POC Whole Blood Glucose 151 MG/DL (74-106) H 139 MG/DL (74-106) H White Blood Count 20.8 K/UL (4.8-10.8) H Red Blood Count 3.05 M/UL (4.20-5.40) L Hemoglobin 8.1 G/DL (12.0-16.0) L Hematocrit 24.5 % (37.0-47.0) L Mean Corpuscular Volume 80 FL (80-99) Mean Corpuscular Hemoglobin 26.5 PG (27.0-31.0) L Mean Corpuscular Hemoglobin Concent 33.1 G/DL (32.0-36.0) Red Cell Distribution Width 20.7 % (11.6-14.8) H Platelet Count 434 K/UL (150-450) Mean Platelet Volume 6.3 FL (6.5-10.1) L Neutrophils (%) (Auto) % (45.0-75.0) Lymphocytes (%) (Auto) % (20.0-45.0) Monocytes (%) (Auto) % (1.0-10.0) Eosinophils (%) (Auto) % (0.0-3.0) Basophils (%) (Auto) % (0.0-2.0) Differential Total Cells Counted 100 Neutrophils % (Manual) 75 % (45-75) Lymphocytes % (Manual) 11 % (20-45) L Monocytes % (Manual) 8 % (1-10) Eosinophils % (Manual) 5 % (0-3) H Basophils % (Manual) 0 % (0-2) Band Neutrophils 1 % (0-8) Platelet Estimate Adequate Platelet Morphology Normal Hypochromasia 1+ Anisocytosis 2+ Sodium Level 153 MMOL/L (136-145) H Potassium Level 3.8 MMOL/L (3.5-5.1) Chloride Level 115 MMOL/L (98-107) H Carbon Dioxide Level 28 MMOL/L (21-32) Blood Urea Nitrogen 43 mg/dL (7-18) H Creatinine 0.9 MG/DL (0.55-1.30) Estimat Glomerular Filtration Rate > 60 mL/min (>60) Glucose Level 162 MG/DL (74-106) H Calcium Level 8.5 MG/DL (8.5-10.1) Phosphorus Level 3.8 MG/DL (2.5-4.9) Magnesium Level 2.0 MG/DL (1.8-2.4) Total Bilirubin 0.3 MG/DL (0.2-1.0) Aspartate Amino Transf (AST/SGOT) 16 U/L (15-37) Alanine Aminotransferase (ALT/SGPT) 38 U/L (12-78) Alkaline Phosphatase 82 U/L (46-116) Total Protein 7.1 G/DL (6.4-8.2) Albumin 1.6 G/DL (3.4-5.0) L Globulin 5.5 g/dL Albumin/Globulin Ratio 0.3 (1.0-2.7) L Plan Problems: (1) Hypernatremia (2) Sepsis (3) UTI (urinary tract infection) (4) Stage 4 decubitus ulcer Assessment & Plan: Pt presented with trach,contractures, multiple Pressure injuries in various stages.Skin assessed under collar of trach and no skin breakdown evident. Full thickness Sacral Pressure injury with undermining clockwise 6-9o'clock.Wound is irregular shaped.Base of wound is 95% granular,5% slough at undermined borders.Small area of bone exposure noted at base of wound. Small amt serosanguineous exudate noted. No odor noted. An area of slough noted along borders. Edges are otherwise adherent and flat to base of wound with surrounding dry, darker skin tone.(L)11.2cm x (W)-8.7cm x(D)1.6cm ,undermining clockwise 6-9o'clock by 1.8cm @8o'clock. Partial thickness Pressure injury noted to R ischium. Base of wound is moist ,viable with surrounding shearing and non-blanchable erythema.(L)6.5cm x (W)4.5cm. Partial thickness Pressure injury L Ischium(L)1.2cm x (W)1.5cm. Base of wound is moist and viable with surrounding non-blanchable erythema with additional shearing. Resolving Pressure Injury medial L Knee. Base of wound is pink and dry . Resolving Pressure injury medial R knee. Dry pink epithelial with scattered moist, granular areas within base of wound.No odor or exudate noted.(L)4.3cm x (W)2.6cm. DTPI L lateral Malleolus(L)2.5cm x (W)3.5cm.Base of Pressure injury is indurated and maroon in colour. Non-Blanchable erythema periwound. DTPI L achilles extending into Plantar aspect of L heel(L)9.7cm x (W)10.4cm. Base of Pressure injury is black at achilles area with scattered purpuric areas, and is otherwise maroon and indurated. Resolving Pressure injury medial R Malleolus. [place] epithelial at base of wound. Stable dry eschar noted to R Hallux (L)1.2cm x (W01.3cm. Periwound skin tone is darker without erythema or induration. Tx.Plan: Cleanse Sacral wound with Saline. Loosely pack with Therahoney impregnated Kerlix(Attention to undermined area). Apply Moisture Barrier Periwound. Cover with Optifoam drsg. Change Daily and prn. Apply Moisture Barrier Paste to R and L Ischial wounds. Cover each site with Optifoam drsg. Change every 3 days and prn. Apply Cavilon Skin Barrier to medial aspects of R and L Knee. Cover each wound with Optifoam drsg.Change every 7 days and prn. Apply Cavilon Skin Barrier to R Hallux, R Heel, R and L Malleoli, and Both heels. Cover each affected area with Optifoam drsgs. Change drsgs every 7 days and prn. Reposition at least every 2 [address] tolerated[address] Pillow between Knees. Off-load heels with Pillow. CT noted. osteo in sacrum cont abx osteo chronic will monitor and asses if debridement needed ABDOMEN: Liver: Unremarkable. No mass. Gallbladder and bile ducts: Unremarkable. No calcified stones. No ductal dilation. Pancreas: Unremarkable. No mass. No ductal dilation. Spleen: Spleen is small. Adrenals: Unremarkable. No mass. Kidneys and ureters: Renal cysts and subcentimeter low-attenuation foci, too small to characterize. No hydronephrosis. Stomach and bowel: Unremarkable. No obstruction. No mucosal thickening. PELVIS: Appendix: No findings to suggest acute appendicitis. Bladder: Bladder wall thickening. Foci of gas in the bladder. Correlate for recent instrumentation versus cystitis. Reproductive: Unremarkable as visualized. ABDOMEN and PELVIS: Intraperitoneal space: Unremarkable. No free air. No significant fluid collection. Bones/joints: Sacrococcygeal decubitus ulcers with associated osteomyelitis. There is some underlying bone thinning and sclerosis in the distal sacrum and coccyx underlying the decubitus ulcers. No acute fracture. No dislocation. Soft tissues: Unremarkable. Vasculature: Moderate plaque abdominal aorta and branches. No abdominal aortic aneurysm. Lymph nodes: Unremarkable. No enlarged lymph nodes. Tubes, lines and devices: Gastrostomy tube within the gastric body. IMPRESSION: 1. Sacrococcygeal decubitus ulcers with associated osteomyelitis. 2. Small left pleural effusion. Left lower lobe atelectasis. 3. Bladder wall thickening. Foci of gas in the bladder. Correlate for recent instrumentation versus cystitis. DAILY ESTIMATED NEEDS: Needs based on Advanced wound, critical care, underweight, CALL BOX WIRER TF/ 45.5kg 30-40 kcals/kg 4942-8913 total kcals 1.5-2 g protein/kg 68-91 g total protein 30-40 mL/kg 2009-2301 total fluid mLs NUTRITION DIAGNOSIS: Increased kcal/prot needs R/T underweight status, wound healing as evidenced by pt @83% IBW w/ underweight BMI of 17.2, admitted w/ multiple wounds, including stage 4 sacral wound. CURRENT TF:Glucerna 1.2 @ 45ml/hr x 24 hrs ENTERAL NUTRITION RECOMMENDATIONS: Glucerna 1.2 @ 60ml/hr x 24 hrs to provide 1440ml, 1728kcal, 86g prot, 1159ml free water * Increase goal rate to 60ml/hr x 24 hrs to meet 100% est kcal/prot needs -> 1.9g prot/kg * HOB over 30 degrees/ water flush per MD * add Shen BID ADDITIONAL RECOMMENDATIONS: * Per SNF: HT=64" and YH=056# vs EMR wt of 147lbs -> rec daily calibrated bedscale wt * Wound healing: TF rec @ goal will provide 100% RDI Vit C 500mg BID, ZnSO4 220gm QD x 10 days Shen BID via PEG * Monitor BGs, consider NISS: h/o DM * Monitor lytes, replete as needed (5) Chronic respiratory failure requiring continuous mechanical ventilation through tracheostomy (6) History of intracranial hemorrhage (7) Idiopathic obstructive hydrocephalus (8) Gout (9) Diabetes mellitus (10) Parkinson's disease dementia (11) Acute on chronic respiratory failure (12) Chronic vegetative state (13) Severe protein-calorie malnutrition Assessment & Plan: DAILY ESTIMATED NEEDS: Needs based on Advanced wound, critical care, underweight, CALL BOX WIRER TF/ 50kg 30-40 kcals/kg 7296-5083 total kcals 1.5-2 g protein/kg 75-100 g total protein 25-35ml/kcal mL/kg 6053-3643 total fluid mLs NUTRITION DIAGNOSIS: Increased kcal/prot needs R/T underweight status, wound healing as evidenced by pt @83% IBW w/ underweight BMI of 17.2, admitted w/ multiple wounds, including stage 4 sacral wound. CURRENT TF:Glucerna 1.2 @ 70ml/hr x 24 hrs (101g pro-provides 2g/kg pro) ENTERAL NUTRITION RECOMMENDATIONS: Glucerna 1.2 @ 65ml/hr x 24 hrs to provide 1560ml, 1872kcal, 94g prot, 1256ml free water * LOWER goal rate to 65ml/hr x 24 hrs- meets 100% est kcal/prot needs * HOB over 30 degrees * INCREASE water flushes: 120ml q 6hrs * add Shen BID * Beneprotein not avaialble. Monitor K and phos, w/ continued elevated levels, rec TF change to Nepro @ goal rate of 45ml/hr x 24 hrs to provide 1080ml, 1944kcal, 87g prot ADDITIONAL RECOMMENDATIONS: * Per SNF: HT=64" and WL=129# vs EMR wt of 147lbs -> Recalibrate bed scale for accurate CBW * Wound healing: TF rec @ goal will provide 100% RDI Continue Vit C, ZnSO4, and Shen BID * Monitor BGs, consider NISS: h/o DM -> NISS now added * Monitor lytes, need for Nepro (k, phos wnl) * Increase water flushes vs added D5: elevated Na and BUN (14) Hypercalcemia (15) Staphylococcus aureus bacteremia Assessment & Plan: unlikely related to wound checking often to ensure not worsening good local care being provided cont abx There is bilateral mostly upper lobe centrilobular emphysema. Mosaic attenuation pattern is seen throughout the bilateral upper lobes. There is consolidation and atelectasis of most of the left lower lobe. A few groundglass opacities are seen in the inferior left upper lobe. There is some compressive atelectasis at the right lung base with elevation of the right hemidiaphragm. There is a subpleural 8 mm nodular opacity in the right middle lobe. On recent abdomen pelvis CT scan, this demonstrated a cavity. The cavity is not evident currently There is a tracheostomy. The pleural spaces are clear. The heart size is normal. No pericardial effusion. No mediastinal or hilar mass or adenopathy. The ascending thoracic aorta is mildly ectatic, measuring up to 3.8 cm in diameter. The included portion of the thyroid is unremarkable. No axillary or chest wall mass or adenopathy demonstrated. There is smooth thoracic kyphosis without focal compression abnormality. The bones are unremarkable. Included upper abdominal anatomy demonstrates contrast in the colon from prior CT of the abdomen. There is a upper pole right renal cyst Impression: Centrilobular emphysema seen throughout both lungs with with an upper lobe predominance, indicating extensive COPD changes Mosaic attenuation pattern in the upper lobes probably related to COPD, although this is a nonspecific finding Dense consolidation and atelectasis of much of the left lower lobe. This could represent pneumonia. Groundglass opacities in the inferior left upper lobe. These could represent areas of acute inflammation, or could represent post inflammatory changes. 8mm nodule in the right middle lobe, also described on prior CT scan. This previously demonstrated a cavity. Cavitation currently not evident. Differential considerations include neoplasm, acute or chronic inflammatory lesion. Recommend at a minimum follow-up CT scan in 6 months Tracheostomy Kyphosis Right upper pole renal cyst Chris Hunter Apr 05, 2020 17:17
[2020-04-05] MEDS: Narcotic Shift Volume MISC SCH ×2 (18:56→23:07)
--- NOTE | 2020-04-05 18:59 | NUR ---
NURSE NOTES: Received report from ADILENE Noonan. Pt is comfort care. On tpiece fio2 30-40L/min. [facility] Pt o2 sat- 82%. IV site patent and intact. GT clamped. Pt is lethargic. Pt has shallow breathing. RR- 30cpm. Pt on NPO. Pt now on DNR/ DNI. SCD- on. No signs of pain and discomfort noted. Bed in lowest position. Continue to current management.
--- NOTE | 2020-04-05 18:59 | NUR ---
NURSE HAND-OFF REPORT: Important Events on Shift: Patient Status: Patient under comfort care per Dr. Matta. Checked morphine drip as ordered by Dr. Matta for comfort measures with ADILENE Mancera. Diet: NPO Pending Orders: None Pending Results/Labs:None Pending MD notification:None Latest Vital Signs: Temperature 98.1 , Pulse 91 , B/P 98 /59 , Respiratory Rate 20 , O2 SAT 100 , Mechanical Ventilator, O2 Flow Rate 8.0 . Vital Sign Comment: Stable EKG Rhythm: Sinus Rhythm Rhythm change?: N MD Notified?: N -Dr. Hill MARQUES Response: Latest Ochoa Fall Score: 70 Fall Risk: High Risk Safety Measures: Call light Within Reach, Bed Alarm Zone 2, Side Rails Side Rails x3, Bed position Low and Locked. Fall Precautions: Yellow Socks Yellow Gown Door Sign Patient Fall Education Report given to ADILENE Mancera.
[2020-04-05 20:00] VITALS: BP 116/61
--- NOTE | 2020-04-05 20:50 | NUR ---
NURSE NOTES: Seen pt with Agonal breathing o2 sat-80% on Tpiece. pt on comfort care. Continue current management.
--- NOTE | 2020-04-05 23:11 | NUR ---
NURSE NOTES: Transferred out to [facility], gave report to Rosie, RN. Morphine drip level 7.25 ml. No discomfort noted. Pt is sleeping and lethargic. O2 sat- 80%. Endorsed.
[2020-04-06] VITALS: BP 110/53
[2020-04-06] MEDS: PCA Morphine 1mg/ml 30 ML IV PRN ×4 (00:57→20:02)
[2020-04-06 04:00] VITALS: BP 113/55
[2020-04-06] MEDS: Acetaminophen 650mg/20.3ml GT PRN ×2 (06:54→20:53)
[2020-04-06] MEDS: Narcotic Shift Volume MISC SCH (07:00)
--- NOTE | 2020-04-06 07:25 | NUR ---
NURSE NOTES: WOUND PICTURES TAKEN AND UPLOADED.
--- NOTE | 2020-04-06 07:35 | NUR ---
NURSE NOTES: RECEIVED PATIENT FROM ADILENE LUCAS. PATIENT WAS TRANSFERRED FROM TELE 2E TO UNIT. PATIENT SLEEPING, AGONAL BREATHING NOTED. O2 AT 75%. ON COMFORT MEASURES. BALTAZAR IN PLACE, DRAINING WELL. G-TUBE CLAMPED. WOUND PICTURES TAKEN. ON MORPHINE DRIP 6.9ML IN TUBING. BED IS LOCKED AND LOW, BED ALARMS ACTIVE, SIDE RAILS UP X2 AND CALL LIGHT IS WITHIN REACH. WILL CONTINUE TO MONITOR.
--- NOTE | 2020-04-06 07:49 | NUR ---
NURSE HAND-OFF: Important Events on Shift: Transfer from [address], on comfort measures, Morphine drip running, changed morphine syringe twice, 24.5ml remaining in tubing at shift change. Agony breathing noted, 02 at 53%. Patient Status: Comfort measures Diet: NPO. GTUBE Clamped Pending Orders: N/A Pending Results/Labs: N/A Pending MD notification:N/A Latest Vital Signs: Temperature 99.9 , Pulse 139 , B/P 113 /55 , Respiratory Rate 25 , O2 SAT 40 , T-piece, O2 Flow Rate 8.0 . Vital Sign Comment: Comfort measures Latest Ochoa Fall Score: 70 Fall Risk: High Risk Safety Measures: Call light Within Reach, Bed Alarm Zone 2, Side Rails Side Rails x3, Bed position Low and Locked. Fall Precautions: Yellow Socks Yellow Gown Door Sign Patient Fall Education Report given to ADILENE Middleton.
--- NOTE | 2020-04-06 07:52 | NUR ---
NURSE NOTES: Patient alert x0; on T-piece, agona breathing, will give suction as needed; G-Tube clamped; Collier in place; IV Left-Hand and Left For-arm; patient on Morphine drip at 5cc/Hr, volume 24.5cc on the tubing; side rails up x2, breaks engaged, bed at lowest position; call light within reach; will keep monitoring.
[2020-04-06 08:00] VITALS: BP 73/48
--- NOTE | 2020-04-06 09:50 | General Progress Note ---
Subjective ROS Limited/Unobtainable: No Allergies: Coded Allergies: No Known Allergies (Unverified , 03/11/20) Objective Last 24 Hour Vital Signs Date Time Temp Pulse Resp B/P (MAP) Pulse Ox O2 Delivery O2 Flow Rate FiO2 04/06/20 08:00 98.9 117 16 73/48 (56) 85 04/06/20 07:24 99.9 04/06/20 05:14 T-piece 04/06/20 04:00 102.6 139 25 113/55 (74) 40 04/06/20 00:00 99.5 139 15 110/53 (72) 53 04/05/20 20:00 98.2 111 14 116/61 (79) 82 04/05/20 20:00 T-piece 04/05/20 20:00 104 04/05/20 16:00 91 04/05/20 16:00 Mechanical Ventilator 04/05/20 16:00 98.1 91 20 98/59 (72) 100 04/05/20 13:15 98 T-Piece 8.0 28 04/05/20 12:00 99.7 94 20 136/73 (94) 100 04/05/20 12:00 35 04/05/20 12:00 Mechanical Ventilator 04/05/20 12:00 95 04/05/20 11:54 96 20 35 Intake and Output 04/05/20 04/06/20 19:00 07:00 Intake Total 380 ml 25 ml Output Total 900 ml 800 ml Balance -520 ml -775 ml IV Total 30 ml 25 ml Tube Feeding 350 ml Output Urine Total 900 ml 800 ml # Bowel Movements 3 Height (Feet): 5 Height (Inches): 5.00 Weight (Pounds): 147 General Appearance: lethargic EENT: normal ENT inspection Neck: supple Cardiovascular: normal rate Respiratory/Chest: decreased breath sounds Abdomen: hypoactive bowel sounds Extremities: non-tender Assessment/Plan Assessment/Plan: Assessment History of intracranial hemorrhage, s/p gastrostomy, OB (+) stools status post tracheostomy, chronic obstructive pulmonary disease, type 2 diabetes, Parkinson's, gout, glaucoma, history of stage IV sacral decubitus ulceration, gout Fever Low albumin Recommendations - continue TF - GT care - elevate HOB - Monitor H&H - no transfusion per end of life planning - no GI w/u per family decision Elias Easley MD Apr 06, 2020 09:50
--- NOTE | 2020-04-06 10:22 | Cardiac Electrophysiology PN ---
Assessment/Plan Assessment/Plan 1. MRSA bacteremia. Most recent blood culture from March 13, 2020 showed no growth. Echo showed EF of 60-65% with no clear vegetation. DEBBIE cancelled as family refused. On iv Abx per ID. Indium scan no clear source 2. Sinus tach due to sepsis. No atrial fib or SVT on Cardizem 30 tid 3. VDRF , status post tracheostomy. Now off the vent and DNR 4. Dysphagia, status post PEG placement. 5. History of intracranial hemorrhage. 6. Diabetes. 7. Glaucoma. 8. Sacral decubitus stage IV. 9. Hypertension, on Cardizem 10. Transient SVT. On Cardizem 30 tid 11. Anemia, s/p PRBC 12. DNR, DNI DW RN and Dr Villegas Subjective Subjective Off the Vent in sinus tach Family refused DEBBIE. Had episodes of SVT lasting less than 20 seconds 03/23/20. Indium scan > no clear source. On Abx per ID Now DNR and DNI Objective Last 24 Hour Vital Signs Date Time Temp Pulse Resp B/P (MAP) Pulse Ox O2 Delivery O2 Flow Rate FiO2 04/06/20 08:00 98.9 117 16 73/48 (56) 85 04/06/20 07:24 99.9 04/06/20 05:14 T-piece 04/06/20 04:00 102.6 139 25 113/55 (74) 40 04/06/20 00:00 99.5 139 15 110/53 (72) 53 04/05/20 20:00 98.2 111 14 116/61 (79) 82 04/05/20 20:00 T-piece 04/05/20 20:00 104 04/05/20 16:00 91 04/05/20 16:00 Mechanical Ventilator 04/05/20 16:00 98.1 91 20 98/59 (72) 100 04/05/20 13:15 98 T-Piece 8.0 28 04/05/20 12:00 99.7 94 20 136/73 (94) 100 04/05/20 12:00 35 04/05/20 12:00 Mechanical Ventilator 04/05/20 12:00 95 04/05/20 11:54 96 20 35 Intake and Output 04/05/20 04/06/20 19:00 07:00 Intake Total 380 ml 25 ml Output Total 900 ml 800 ml Balance -520 ml -775 ml IV Total 30 ml 25 ml Tube Feeding 350 ml Output Urine Total 900 ml 800 ml # Bowel Movements 3 Objective HEAD AND NECK: No JVD.Trach in place LUNGS: Coarse rhonchi. Status post tracheostomy. CARDIOVASCULAR: Regular S1 and S2 with no gallop or rub. Status post PEG. EXTREMITIES: 1+ pitting edema with sacral decubitus. Shay Alejandre MD Apr 06, 2020 10:22
--- NOTE | 2020-04-06 10:26 | NUR ---
NURSE NOTES: Patient's daughter, Merissa, wants MD Matta to call her at [phone]; MD Matta is aware;
[2020-04-06 12:00] VITALS: BP 86/54
--- NOTE | 2020-04-06 12:15 | Nephrology Progress Note ---
Assessment/Plan Problem List: (1) Hypercalcemia (2) Hypernatremia (3) Sepsis (4) UTI (urinary tract infection) (5) Stage 4 decubitus ulcer (6) Acute on chronic respiratory failure (7) Chronic vegetative state (8) Severe protein-calorie malnutrition Assessment Azotemia and hypernatremia indicative of severe dehydration and free water deficit Acute on chronic respiratory failure, on mechanical ventilation Severe underlying anemia Sepsis Stage IV decubitus Idiopathic obstructive hydrocephalus, history of intracranial hemorrhage Diabetes mellitus Parkinson's disease, dementia Protein calorie malnutrition Plan April 06: Patient is now in [facility]. Patient disconnected from ventilator. Patient has a T-piece. Patient DNR/DNI. Patient hypotensive. No labs drawn today. Continue current support. Patient preterminal. April 05: Labs reviewed. D5W for hypernatremia started. Patient febrile and has leukocytosis. Continue per ID. Hemoglobin higher after transfusion. April 04: Labs reviewed. Renal parameters stable. Hemoglobin lower. Transfusion per PMD. Continue to monitor renal parameters. April 03: Labs reviewed. Serum potassium 5.4. Appears to be hemolysis. 30 g Kayexalate given. Continue to monitor renal parameters and electrolytes. Leukocytosis improved nevertheless persists. April 02: Labs reviewed. Serum creatinine normalized. Electrolytes within normal limit. Continue per current management. Patient remains full code. April 01: Labs reviewed. Serum creatinine up to 1.5 and potassium 5.2. Patient had episodes of hypotension. Will give fluid challenge. Continue to monitor renal parameters. Urine studies ordered. March 31: No labs done today. Remains full code. Trach and vent. Continue per consultants. March 30: Labs reviewed. Trach to vent. Remains full code. Labs reviewed. Renal parameters stable. March 29: Labs reviewed. Renal parameters stable. Continue per consultants. March 28: Labs reviewed. Stable from renal standpoint of view. March 27: Medication list reviewed. Labs reviewed. Stable from renal stand point of view. March 26: Patient remains stable from renal standpoint of view. Labs and medication list reviewed. March 25: Labs reviewed. Renal parameters stable. Continue per consultants. March 24: Labs reviewed. Renal parameters stable. Continue per consultants. March 23: Labs reviewed. Renal parameters are stable. Continue per consultants. March 22: Labs reviewed. Serum sodium 151. D5W IV given. Continue per consultants. March 21: Labs reviewed. Renal parameters stable. Continue per consultants. March 20: Labs reviewed. Serum sodium lower 147. Serum calcium stable. Continue as is. March 19: Labs reviewed. Serum sodium unchanged at 150. Another liter of D5W ordered. Serum calcium stable. Continue as is. March 18: Labs reviewed. Serum sodium 150. 1 L of D5W IV ordered. Serum calcium stable. Continue as is. March 17: Labs reviewed. Renal parameters stable. Continue to watch serum calcium. Continue per consultants. March 16: Labs reviewed. Serum calcium stable. Medication list reviewed. Abnormal electrolyte addressed. Continue current management. March 15: Labs reviewed. Serum calcium lowering. Abnormal electrolytes addressed. Continue per consultants. March 14: Labs reviewed. Status quo. Serum calcium lowering. Magnesium and potassium supplement ordered. Continue per current treatment plan. March 13: 1 dose of pamidronate 60 mg for high calcium IV ordered. Labs reviewed. Medication list reviewed. Electrolytes improving. Hemoglobin higher after transfusion. Nasal calcitonin initiated March 12: D5W at 75 cc an hour Monitor electrolytes Monitor hemoglobin hematocrit Gastric support Consider transfusion Continue per orders Parameters for blood pressure medication Antibiotics per ID Subjective ROS Limited/Unobtainable: Yes Objective Objective Last 24 Hour Vital Signs Date Time Temp Pulse Resp B/P (MAP) Pulse Ox O2 Delivery O2 Flow Rate FiO2 04/06/20 12:00 98.9 113 17 86/54 (65) 79 04/06/20 08:00 98.9 117 16 73/48 (56) 85 04/06/20 07:24 99.9 04/06/20 05:14 T-piece 04/06/20 04:00 102.6 139 25 113/55 (74) 40 04/06/20 00:00 99.5 139 15 110/53 (72) 53 04/05/20 20:00 98.2 111 14 116/61 (79) 82 04/05/20 20:00 T-piece 04/05/20 20:00 104 04/05/20 16:00 91 04/05/20 16:00 Mechanical Ventilator 04/05/20 16:00 98.1 91 20 98/59 (72) 100 04/05/20 13:15 98 T-Piece 8.0 28 Intake and Output 04/05/20 04/06/20 19:00 07:00 Intake Total 380 ml 25 ml Output Total 900 ml 800 ml Balance -520 ml -775 ml IV Total 30 ml 25 ml Tube Feeding 350 ml Output Urine Total 900 ml 800 ml # Bowel Movements 3 Current Medications Medications (Trade) Dose Ordered Sig/Zaki Route PRN Reason Start Time Stop Time Status Last Admin Dose Admin Acetaminophen (Tylenol) 650 mg Q6H PRN GT Temp >100.5, Mild Pain 03/11/20 06:30 04/10/20 06:29 04/06/20 06:54 Artificial Tears (Akwa-Tears) 1 drop QIDPRN PRN BOTH EYES Dry Eyes 04/05/20 12:00 05/05/20 11:59 Dextrose (Dextrose 50%) 25 ml Q30M PRN IV Hypoglycemia 03/13/20 23:30 06/11/20 23:29 Dextrose (Dextrose 50%) 50 ml Q30M PRN IV Hypoglycemia 03/13/20 23:30 06/11/20 23:29 Glycopyrrolate (Robinul) 0.1 mg Q6H PRN IV excessive secretions 04/05/20 12:00 05/05/20 11:59 Haloperidol Lactate (Haldol) 1 mg Q30M PRN IM Agitation 04/05/20 12:00 05/20/20 11:59 Miscellaneous Medication (Narcotic Drip Rate Change) 1 ea DAILY PRN MISC To Patient Comfort 04/05/20 12:00 05/06/20 11:59 Miscellaneous Medication (Narcotic Shift Volume) 1 ea Q12HR@0700,1900 MISC 04/05/20 19:00 05/06/20 18:59 04/06/20 07:00 Morphine Sulfate 30 ml @ 5 mls/hr CARPENTER ASSEMBLER Protocol PRN IV For Pain 04/05/20 12:00 05/06/20 11:59 04/06/20 06:03 Ondansetron HCl (Zofran) 4 mg Q4H PRN IVP Nausea & Vomiting 03/11/20 06:30 04/10/20 06:29 Prochlorperazine (Compazine) 10 mg Q6H PRN ORAL Nausea & Vomiting 04/05/20 12:00 05/05/20 11:59 Height (Feet): 5 Height (Inches): 5.00 Weight (Pounds): 147 General Appearance: no apparent distress, lethargic Cardiovascular: tachycardia Respiratory/Chest: decreased breath sounds Abdomen: distended Mathew Huntley MD Apr 06, 2020 12:15
--- NOTE | 2020-04-06 12:38 | Pulmonology Progress Note ---
Subjective ROS Limited/Unobtainable: Yes Allergies: Coded Allergies: No Known Allergies (Unverified , 03/11/20) Objective Last 24 Hour Vital Signs Date Time Temp Pulse Resp B/P (MAP) Pulse Ox O2 Delivery O2 Flow Rate FiO2 04/06/20 12:00 98.9 113 17 86/54 (65) 79 04/06/20 08:00 98.9 117 16 73/48 (56) 85 04/06/20 07:24 99.9 04/06/20 05:14 T-piece 04/06/20 04:00 102.6 139 25 113/55 (74) 40 04/06/20 00:00 99.5 139 15 110/53 (72) 53 04/05/20 20:00 98.2 111 14 116/61 (79) 82 04/05/20 20:00 T-piece 04/05/20 20:00 104 04/05/20 16:00 91 04/05/20 16:00 Mechanical Ventilator 04/05/20 16:00 98.1 91 20 98/59 (72) 100 04/05/20 13:15 98 T-Piece 8.0 28 Intake and Output 04/05/20 04/06/20 19:00 07:00 Intake Total 380 ml 25 ml Output Total 900 ml 800 ml Balance -520 ml -775 ml IV Total 30 ml 25 ml Tube Feeding 350 ml Output Urine Total 900 ml 800 ml # Bowel Movements 3 General Appearance: no acute distress, other - chronically ill looking, bedridden,cachetic, not responsive, vent dependent female on vent AC HEENT: normocephalic, anicteric, status post trach - Portex # 7, secretions small amount, white color, thick coinsistency Respiratory: no respiratory distress, other - few scattered rhonchi Cardiovascular: regular rhythm - SR with occasional low ST Abdomen: normal bowel sounds, soft, non tender, other - G tube Extremities: no edema, pedal pulses normal Neurologic: abnormal gait, other - lethargic, Musculoskeletal: atrophy - BLE Current Medications Medications (Trade) Dose Ordered Sig/Zaki Route PRN Reason Start Time Stop Time Status Last Admin Dose Admin Acetaminophen (Tylenol) 650 mg Q6H PRN GT Temp >100.5, Mild Pain 03/11/20 06:30 04/10/20 06:29 04/06/20 06:54 Artificial Tears (Akwa-Tears) 1 drop QIDPRN PRN BOTH EYES Dry Eyes 04/05/20 12:00 05/05/20 11:59 Dextrose (Dextrose 50%) 25 ml Q30M PRN IV Hypoglycemia 03/13/20 23:30 06/11/20 23:29 Dextrose (Dextrose 50%) 50 ml Q30M PRN IV Hypoglycemia 03/13/20 23:30 06/11/20 23:29 Glycopyrrolate (Robinul) 0.1 mg Q6H PRN IV excessive secretions 04/05/20 12:00 05/05/20 11:59 Haloperidol Lactate (Haldol) 1 mg Q30M PRN IM Agitation 04/05/20 12:00 05/20/20 11:59 Miscellaneous Medication (Narcotic Drip Rate Change) 1 ea DAILY PRN MISC To Patient Comfort 04/05/20 12:00 05/06/20 11:59 Miscellaneous Medication (Narcotic Shift Volume) 1 ea Q12HR@0700,1900 MISC 04/05/20 19:00 05/06/20 18:59 04/06/20 07:00 Morphine Sulfate 30 ml @ 5 mls/hr DAT[employer] SOFTWARE TECHNICIAN Protocol PRN IV For Pain 04/05/20 12:00 05/06/20 11:59 04/06/20 06:03 Ondansetron HCl (Zofran) 4 mg Q4H PRN IVP Nausea & Vomiting 03/11/20 06:30 04/10/20 06:29 Prochlorperazine (Compazine) 10 mg Q6H PRN ORAL Nausea & Vomiting 04/05/20 12:00 05/05/20 11:59 Assessment/Plan Problems: (1) Acute on chronic respiratory failure (2) Sepsis (3) Chronic respiratory failure requiring continuous mechanical ventilation through tracheostomy (4) Stage 4 decubitus ulcer (5) Idiopathic obstructive hydrocephalus (6) Diabetes mellitus (7) Parkinson's disease dementia (8) History of intracranial hemorrhage Assessment/Plan comfortable on morphine drip stop acuchecks d/w daughter, she wishes to come today at 8 pm for another visit. Patti Matta MD Apr 06, 2020 12:37
--- NOTE | 2020-04-06 13:18 | Infectious Diseases Prog Note ---
Subjective Allergies: Coded Allergies: No Known Allergies (Unverified , 03/11/20) Pt now comfort care, ID will sign-off now. Objective Last 24 Hour Vital Signs Date Time Temp Pulse Resp B/P (MAP) Pulse Ox O2 Delivery O2 Flow Rate FiO2 04/06/20 12:00 98.9 113 17 86/54 (65) 79 04/06/20 08:00 98.9 117 16 73/48 (56) 85 04/06/20 07:24 99.9 04/06/20 05:14 T-piece 04/06/20 04:00 102.6 139 25 113/55 (74) 40 04/06/20 00:00 99.5 139 15 110/53 (72) 53 04/05/20 20:00 98.2 111 14 116/61 (79) 82 04/05/20 20:00 T-piece 04/05/20 20:00 104 04/05/20 16:00 91 04/05/20 16:00 Mechanical Ventilator 04/05/20 16:00 98.1 91 20 98/59 (72) 100 Height (Feet): 5 Height (Inches): 5.00 Weight (Pounds): 147 Current Medications Medications (Trade) Dose Ordered Sig/Zaki Route PRN Reason Start Time Stop Time Status Last Admin Dose Admin Acetaminophen (Tylenol) 650 mg Q6H PRN GT Temp >100.5, Mild Pain 03/11/20 06:30 04/10/20 06:29 04/06/20 06:54 Artificial Tears (Akwa-Tears) 1 drop QIDPRN PRN BOTH EYES Dry Eyes 04/05/20 12:00 05/05/20 11:59 Glycopyrrolate (Robinul) 0.1 mg Q6H PRN IV excessive secretions 04/05/20 12:00 05/05/20 11:59 Haloperidol Lactate (Haldol) 1 mg Q30M PRN IM Agitation 04/05/20 12:00 05/20/20 11:59 Miscellaneous Medication (Narcotic Drip Rate Change) 1 ea DAILY PRN MISC To Patient Comfort 04/05/20 12:00 05/06/20 11:59 Miscellaneous Medication (Narcotic Shift Volume) 1 ea Q12HR@0700,1900 MISC 04/05/20 19:00 05/06/20 18:59 04/06/20 07:00 Morphine Sulfate 30 ml @ 5 mls/hr CARE CLINICIAN Protocol PRN IV For Pain 04/05/20 12:00 05/06/20 11:59 04/06/20 06:03 Ondansetron HCl (Zofran) 4 mg Q4H PRN IVP Nausea & Vomiting 03/11/20 06:30 04/10/20 06:29 Prochlorperazine (Compazine) 10 mg Q6H PRN ORAL Nausea & Vomiting 04/05/20 12:00 05/05/20 11:59 Shirley Villegas M.D. Apr 06, 2020 13:18
--- NOTE | 2020-04-06 13:47 | NUR ---
CASE MANAGEMENT:REVIEW SI;SEPSIS. BACTEREMIA. RESPIRATORY FAILURE. CURRENTLY ON COMFORT MEASURES 102.6 139 25 73/48 40% T-PIECE IS;MORPHINE GTT TYLENOL GT MED SURG STATUS FROM [facility]
--- NOTE | 2020-04-06 13:59 | Internal Med Progress Note ---
Subjective Physician Name Jesus Lutz Attending Physician Jesus Lutz MD Current Medications Medications (Trade) Dose Ordered Sig/Zaki Route PRN Reason Start Time Stop Time Status Last Admin Dose Admin Acetaminophen (Tylenol) 650 mg Q6H PRN GT Temp >100.5, Mild Pain 03/11/20 06:30 04/10/20 06:29 04/06/20 06:54 Artificial Tears (Akwa-Tears) 1 drop QIDPRN PRN BOTH EYES Dry Eyes 04/05/20 12:00 05/05/20 11:59 Glycopyrrolate (Robinul) 0.1 mg Q6H PRN IV excessive secretions 04/05/20 12:00 05/05/20 11:59 Haloperidol Lactate (Haldol) 1 mg Q30M PRN IM Agitation 04/05/20 12:00 05/20/20 11:59 Miscellaneous Medication (Narcotic Drip Rate Change) 1 ea DAILY PRN MISC To Patient Comfort 04/05/20 12:00 05/06/20 11:59 Miscellaneous Medication (Narcotic Shift Volume) 1 ea Q12HR@0700,1900 MISC 04/05/20 19:00 05/06/20 18:59 04/06/20 07:00 Morphine Sulfate 30 ml @ 5 mls/hr HOSIERY LOOPER Protocol PRN IV For Pain 04/05/20 12:00 05/06/20 11:59 04/06/20 13:24 Ondansetron HCl (Zofran) 4 mg Q4H PRN IVP Nausea & Vomiting 03/11/20 06:30 04/10/20 06:29 Prochlorperazine (Compazine) 10 mg Q6H PRN ORAL Nausea & Vomiting 04/05/20 12:00 05/05/20 11:59 Allergies: Coded Allergies: No Known Allergies (Unverified , 03/11/20) Subjective status post a trach and PEG, on comfort care, morphine drip, unresponsive.. Objective Last Vital Signs Date Time Temp Pulse Resp B/P (MAP) Pulse Ox O2 Delivery O2 Flow Rate FiO2 04/06/20 12:00 98.9 113 17 86/54 (65) 79 04/06/20 05:14 T-piece 04/05/20 13:15 8.0 28 Intake and Output 04/05/20 04/06/20 19:00 07:00 Intake Total 380 ml 25 ml Output Total 900 ml 800 ml Balance -520 ml -775 ml IV Total 30 ml 25 ml Tube Feeding 350 ml Output Urine Total 900 ml 800 ml # Bowel Movements 3 Objective General: Unresponsive, Unable to open eyes, Unable to F/U commands. HEENT: NCAT, sclera anicteric, PERRL, Neck: tracheostomy site intact. Lungs: Decreased breath sound at the bases, no Wheeze or Rales. Heart: Regular rate and rhythm, normal S1/S2, no murmurs. Abdomen: soft, nontender, nondistended. + BS, PEG site intact. Extremities: No Cyanosis , clubbing or edema. contracted extremities. Neuro: limited secondary to patient status, unable to move extremities. Skin: warm, no rash, pressure ulcer on lower extremities. Assessment/Plan Assessment/Plan 1. Left lower lobe pneumonia. 2. chronic Respiratory failure S/P tracheostomy. 3. Hypernatremia. 4. Renal failure. 5. Hypoxemia. 6. Tracheostomy dependence. 7. Chronic obstructive pulmonary disease. 8. Diabetes type 2. 9. Parkinson disease. 10. Gout. 11. Glaucoma. 12. Sacral decubitus ulcer stage IV. 13. History of intracranial hemorrhage. 14. Hydrocephalus. 15. MRSA bacteremia. 16. UTI=MDR acenitobacter TREATMENT: 1. Left lower lobe pneumonia/respiratory failure/sepsis. Pulmonary consultation =Dr. Patti Matta. ABX= Off Infectious disease=Dr. Villegas We will follow recommendations of Infectious Disease. 2. Hypernatremia. Hypernatremia may be secondary to renal failure versus dehydration. Nephrology consultation =. 3. Renal failure nephrology consultation =Dr. Huntley. 4. Tracheostomy dependence. 5. Chronic obstructive pulmonary disease. 6. Diabetes type 2. NovoLog sliding scale has been instituted. 7. Parkinson disease. 8. Gout. Continue allopurinol as above. 9. Glaucoma. 10. Sacral decubitus ulcer stage IV. A general surgery consultation has been obtained with Dr. Chris Hunter. 11. History of intracranial hemorrhage. comfort care, dying protocol. On morphine drip.. Jesus Lutz MD Apr 06, 2020 13:59
--- NOTE | 2020-04-06 14:37 | Surgery Progress Note ---
Surgery Progress Note Subjective Additional Comments ill appearing on t piece no n/v Objective Last 24 Hour Vital Signs Date Time Temp Pulse Resp B/P (MAP) Pulse Ox O2 Delivery O2 Flow Rate FiO2 04/06/20 13:54 98.9 04/06/20 12:00 98.9 113 17 86/54 (65) 79 04/06/20 08:00 98.9 117 16 73/48 (56) 85 04/06/20 07:24 99.9 04/06/20 05:14 T-piece 04/06/20 04:00 102.6 139 25 113/55 (74) 40 04/06/20 00:00 99.5 139 15 110/53 (72) 53 04/05/20 20:00 98.2 111 14 116/61 (79) 82 04/05/20 20:00 T-piece 04/05/20 20:00 104 04/05/20 16:00 91 04/05/20 16:00 Mechanical Ventilator 04/05/20 16:00 98.1 91 20 98/59 (72) 100 I&O Intake and Output 04/05/20 04/06/20 19:00 07:00 Intake Total 380 ml 25 ml Output Total 900 ml 800 ml Balance -520 ml -775 ml IV Total 30 ml 25 ml Tube Feeding 350 ml Output Urine Total 900 ml 800 ml # Bowel Movements 3 Dressing: saturated Cardiovascular: RSR Respiratory: decreased breath sounds Abdomen: non-tender, present bowel sounds Extremities: no tenderness, no cyanosis Plan Problems: (1) Hypernatremia (2) Sepsis (3) UTI (urinary tract infection) (4) Stage 4 decubitus ulcer Assessment & Plan: Pt presented with trach,contractures, multiple Pressure injuries in various stages.Skin assessed under collar of trach and no skin breakdown evident. Full thickness Sacral Pressure injury with undermining clockwise 6-9o'clock.Wound is irregular shaped.Base of wound is 95% granular,5% slough at undermined borders.Small area of bone exposure noted at base of wound. Small amt serosanguineous exudate noted. No odor noted. An area of slough noted along borders. Edges are otherwise adherent and flat to base of wound with surrounding dry, darker skin tone.(L)11.2cm x (W)-8.7cm x(D)1.6cm ,undermining clockwise 6-9o'clock by 1.8cm @8o'clock. Partial thickness Pressure injury noted to R ischium. Base of wound is moist ,viable with surrounding shearing and non-blanchable erythema.(L)6.5cm x (W)4.5cm. Partial thickness Pressure injury L Ischium(L)1.2cm x (W)1.5cm. Base of wound is moist and viable with surrounding non-blanchable erythema with additional shearing. Resolving Pressure Injury medial L Knee. Base of wound is pink and dry . Resolving Pressure injury medial R knee. Dry pink epithelial with scattered moist, granular areas within base of wound.No odor or exudate noted.(L)4.3cm x (W)2.6cm. DTPI L lateral Malleolus(L)2.5cm x (W)3.5cm.Base of Pressure injury is indurated and maroon in colour. Non-Blanchable erythema periwound. DTPI L achilles extending into Plantar aspect of L heel(L)9.7cm x (W)10.4cm. Base of Pressure injury is black at achilles area with scattered purpuric areas, and is otherwise maroon and indurated. Resolving Pressure injury medial R Malleolus. [place] epithelial at base of wound. Stable dry eschar noted to R Hallux (L)1.2cm x (W01.3cm. Periwound skin tone is darker without erythema or induration. Tx.Plan: Cleanse Sacral wound with Saline. Loosely pack with Therahoney impregnated Kerlix(Attention to undermined area). Apply Moisture Barrier Periwound. Cover with Optifoam drsg. Change Daily and prn. Apply Moisture Barrier Paste to R and L Ischial wounds. Cover each site with Optifoam drsg. Change every 3 days and prn. Apply Cavilon Skin Barrier to medial aspects of R and L Knee. Cover each wound with Optifoam drsg.Change every 7 days and prn. Apply Cavilon Skin Barrier to R Hallux, R Heel, R and L Malleoli, and Both heels. Cover each affected area with Optifoam drsgs. Change drsgs every 7 days and prn. Reposition at least every 2 [address] tolerated[address] Pillow between Knees. Off-load heels with Pillow. CT noted. osteo in sacrum cont abx osteo chronic will monitor and asses if debridement needed ABDOMEN: Liver: Unremarkable. No mass. Gallbladder and bile ducts: Unremarkable. No calcified stones. No ductal dilation. Pancreas: Unremarkable. No mass. No ductal dilation. Spleen: Spleen is small. Adrenals: Unremarkable. No mass. Kidneys and ureters: Renal cysts and subcentimeter low-attenuation foci, too small to characterize. No hydronephrosis. Stomach and bowel: Unremarkable. No obstruction. No mucosal thickening. PELVIS: Appendix: No findings to suggest acute appendicitis. Bladder: Bladder wall thickening. Foci of gas in the bladder. Correlate for recent instrumentation versus cystitis. Reproductive: Unremarkable as visualized. ABDOMEN and PELVIS: Intraperitoneal space: Unremarkable. No free air. No significant fluid collection. Bones/joints: Sacrococcygeal decubitus ulcers with associated osteomyelitis. There is some underlying bone thinning and sclerosis in the distal sacrum and coccyx underlying the decubitus ulcers. No acute fracture. No dislocation. Soft tissues: Unremarkable. Vasculature: Moderate plaque abdominal aorta and branches. No abdominal aortic aneurysm. Lymph nodes: Unremarkable. No enlarged lymph nodes. Tubes, lines and devices: Gastrostomy tube within the gastric body. IMPRESSION: 1. Sacrococcygeal decubitus ulcers with associated osteomyelitis. 2. Small left pleural effusion. Left lower lobe atelectasis. 3. Bladder wall thickening. Foci of gas in the bladder. Correlate for recent instrumentation versus cystitis. DAILY ESTIMATED NEEDS: Needs based on Advanced wound, critical care, underweight, CRYOGENICS REPAIRER TF/ 45.5kg 30-40 kcals/kg 6249-8742 total kcals 1.5-2 g protein/kg 68-91 g total protein 30-40 mL/kg 9044-9732 total fluid mLs NUTRITION DIAGNOSIS: Increased kcal/prot needs R/T underweight status, wound healing as evidenced by pt @83% IBW w/ underweight BMI of 17.2, admitted w/ multiple wounds, including stage 4 sacral wound. CURRENT TF:Glucerna 1.2 @ 45ml/hr x 24 hrs ENTERAL NUTRITION RECOMMENDATIONS: Glucerna 1.2 @ 60ml/hr x 24 hrs to provide 1440ml, 1728kcal, 86g prot, 1159ml free water * Increase goal rate to 60ml/hr x 24 hrs to meet 100% est kcal/prot needs -> 1.9g prot/kg * HOB over 30 degrees/ water flush per MD * add Shen BID ADDITIONAL RECOMMENDATIONS: * Per SNF: HT=64" and TQ=545# vs EMR wt of 147lbs -> rec daily calibrated bedscale wt * Wound healing: TF rec @ goal will provide 100% RDI Vit C 500mg BID, ZnSO4 220gm QD x 10 days Shen BID via PEG * Monitor BGs, consider NISS: h/o DM * Monitor lytes, replete as needed (5) Chronic respiratory failure requiring continuous mechanical ventilation through tracheostomy (6) History of intracranial hemorrhage (7) Idiopathic obstructive hydrocephalus (8) Gout (9) Diabetes mellitus (10) Parkinson's disease dementia (11) Acute on chronic respiratory failure (12) Chronic vegetative state (13) Severe protein-calorie malnutrition Assessment & Plan: DAILY ESTIMATED NEEDS: Needs based on Advanced wound, critical care, underweight, CRYOGENICS REPAIRER TF/ 50kg 30-40 kcals/kg 1425-0537 total kcals 1.5-2 g protein/kg 75-100 g total protein 25-35ml/kcal mL/kg 0674-3473 total fluid mLs NUTRITION DIAGNOSIS: Increased kcal/prot needs R/T underweight status, wound healing as evidenced by pt @83% IBW w/ underweight BMI of 17.2, admitted w/ multiple wounds, including stage 4 sacral wound. CURRENT TF:Glucerna 1.2 @ 70ml/hr x 24 hrs (101g pro-provides 2g/kg pro) ENTERAL NUTRITION RECOMMENDATIONS: Glucerna 1.2 @ 65ml/hr x 24 hrs to provide 1560ml, 1872kcal, 94g prot, 1256ml free water * LOWER goal rate to 65ml/hr x 24 hrs- meets 100% est kcal/prot needs * HOB over 30 degrees * INCREASE water flushes: 120ml q 6hrs * add Shen BID * Beneprotein not avaialble. Monitor K and phos, w/ continued elevated levels, rec TF change to Nepro @ goal rate of 45ml/hr x 24 hrs to provide 1080ml, 1944kcal, 87g prot ADDITIONAL RECOMMENDATIONS: * Per SNF: HT=64" and RN=532# vs EMR wt of 147lbs -> Recalibrate bed scale for accurate CBW * Wound healing: TF rec @ goal will provide 100% RDI Continue Vit C, ZnSO4, and Shen BID * Monitor BGs, consider NISS: h/o DM -> NISS now added * Monitor lytes, need for Nepro (k, phos wnl) * Increase water flushes vs added D5: elevated Na and BUN (14) Hypercalcemia (15) Staphylococcus aureus bacteremia Assessment & Plan: unlikely related to wound checking often to ensure not worsening good local care being provided cont abx There is bilateral mostly upper lobe centrilobular emphysema. Mosaic attenuation pattern is seen throughout the bilateral upper lobes. There is consolidation and atelectasis of most of the left lower lobe. A few groundglass opacities are seen in the inferior left upper lobe. There is some compressive atelectasis at the right lung base with elevation of the right hemidiaphragm. There is a subpleural 8 mm nodular opacity in the right middle lobe. On recent abdomen pelvis CT scan, this demonstrated a cavity. The cavity is not evident currently There is a tracheostomy. The pleural spaces are clear. The heart size is normal. No pericardial effusion. No mediastinal or hilar mass or adenopathy. The ascending thoracic aorta is mildly ectatic, measuring up to 3.8 cm in diameter. The included portion of the thyroid is unremarkable. No axillary or chest wall mass or adenopathy demonstrated. There is smooth thoracic kyphosis without focal compression abnormality. The bones are unremarkable. Included upper abdominal anatomy demonstrates contrast in the colon from prior CT of the abdomen. There is a upper pole right renal cyst Impression: Centrilobular emphysema seen throughout both lungs with with an upper lobe predominance, indicating extensive COPD changes Mosaic attenuation pattern in the upper lobes probably related to COPD, although this is a nonspecific finding Dense consolidation and atelectasis of much of the left lower lobe. This could represent pneumonia. Groundglass opacities in the inferior left upper lobe. These could represent areas of acute inflammation, or could represent post inflammatory changes. 8mm nodule in the right middle lobe, also described on prior CT scan. This previously demonstrated a cavity. Cavitation currently not evident. Differential considerations include neoplasm, acute or chronic inflammatory lesion. Recommend at a minimum follow-up CT scan in 6 months Tracheostomy Kyphosis Right upper pole renal cyst Chris Hunter Apr 06, 2020 14:37
[2020-04-06 16:00] VITALS: BP 88/52
--- NOTE | 2020-04-06 17:43 | NUR ---
NURSE NOTES: Suction provided; patient tolerated well;
--- NOTE | 2020-04-06 19:25 | NUR ---
HAND-OFF: Report given to ADILENE Leggett. Morphine drip 0.42cc in the syringe;
--- NOTE | 2020-04-06 19:30 | NUR ---
NURSE NOTES: Patient in bed, comfort care measures; ANOx0; T-piece noted - suction provided. Agonal breathing noted; O2 sat 76%. G-Tube in place and clamped; Collier in place and draining to gravity. IV intact. HAM BONER running continuously - Morphine drip at 5cc/hr; 0.42cc remains in syringe. Bed locked and in lowest position Bed alarm on. Will continue plan of care.
[2020-04-06 20:00] VITALS: BP 76/50
[2020-04-06] MEDS ORDERED: NS 275ml ONE (22:49)
[2020-04-06] MEDS ORDERED: Tubing IV Blood Pump IV ONE (22:49)
--- NOTE | 2020-04-06 22:50 | NUR ---
PRONOUNCEMENT: No Code. Called to pronounce patient. Absence of spontaneous respirations, no cardiac or breath sounds on auscultation. Pupils fixed and dilated. No carotid pulse or chest movement. Patient at 2250. DR Lutz notified PER Vlad Leggett, he asked Rn to notify family, Daughter Merissa Gordillo notified by Vlad Leggett, had visited earlier,no belongings. ]Will send to [facility].
--- NOTE | 2020-04-06 23:50 | NUR ---
NURSE NOTES: Patient found to be ; pronounced by medical transcription, Marcelina Giordano at 2250. Dr. Lutz made aware - informed family per Bolivar's request. Called [facility] per protocol. Nursing blackjack supervisor made aware. Morphine syringe removed from LITHOGRAPHIC PRESS FEEDER with 16.9cc remaining.
--- NOTE | 2020-04-09 12:31 | NUR ---
CASE MANAGEMENT: Faxed CM review 04-06-20 and clinical info (face sheet /progress notes 04-06-20) to [facility] DIRECT @ [phone]. REF: [id number]
--- NOTE | 2020-04-10 12:28 | Discharge Summary ---
Discharge Summary Discharge Summary _ SUMMARY DATE OF ADMISSION: 03/11/2020 DATE OF EXPIRATION: 04/06/2020 REASON FOR ADMISSION: 74 years old female with past medical history of intracranial hemorrhage, chronic respiratory failure, tracheostomy status , brought by paramedics from the snf facility due to chief complaint of hypoxia and tachycardia. Pulse oximetry was 65% on room air. In emergency department patient was placed on ventilator , started on the IV fluids, antibiotic and transferred to ICU for further management. CONSULTANTS: cardiology Dr. Ramos paper wood cutter forest management professor Dr. Landon pulmonary Dr. Matta ID specialist GI specialist Dr. Rivera urologist [facility] COURSE: Patient initially admitted to ICU. Ventilator support and pulmonary toilet provided. Tracheostomy care provided. Baseline ABG was stable on current settings. Settings further titrated as needed. Patient was followed-up with chest x-ray. Initial blood culture revealed MRSA. Rapid COVID-19 was negative. Urine culture revealed Acinetobacter complex, and sputum culture revealed Pseudomonas aeruginosa . Repeated blood culture came back negative Stool for C. difficile was negative. Follow-up sputum culture revealed Pseudomonas aeruginosa and Serratia. Patient continued to have persistent leukocytosis and intermittent fevers. Antibiotic regimen optimized as per ID specialist recommendation. CT scan of the abdomen and pelvis revealed sacrococcygeal decubitus ulcer with associated osteomyelitis. Bacteremia was most likely due to osteomyelitis as per ID specialist. CT of the chest revealed emphysema with dense consolidation and atelectasis. 8 mm nodule in the right midline middle lobe described on prior CT scan and previously demonstrated a cavitation , was no longer evident . Venous duplex bilateral lower extremity revealed no evidence of acute DVT. Patient undergone indium scan test for persistent leukocytosis and intermittent fevers. No definite abnormality was seen to explain stated clinical history of leukocytosis. Wound care for sacral decubitus ulcer provided as per surgeon recommendation. Osteomyelitis appeared to be chronic as per surgeon. Echocardiogram revealed preserved ejection fraction 65 to 70%. No evidence of wall motion abnormality. Right ventricular systolic pressure of 40, consistent with a mild pulmonary hypertension. Trace to mild mitral regurgitation and mild tricuspid regurgitation. No discrete vegetation was seen DEBBIE , which initially was planned, was canceled as family refused. I Manager Etl followed. Sinus tachycardia was most likely due to sepsis ; no evidence of atrial fibrillation or SVT. Patient was on Cardizem. Blood pressure remained stable. Hemoglobin and hematocrit were closely monitored with goal to keep hemoglobin above 7 . patient undergone transfusion of 3 units of packed red blood cells while in the hospital. Stool for occult blood was positive. Aspiration precaution maintained. G-tube site care provided Tube feeding formula with goal rate and protein supplements provided per registered dietitian recommendation. Renal parameters and electrolytes were closely monitored, electrolytes corrected as needed . Creatinine down to normal . BUN remained elevated . Hypernatremia initially resolved and then recurred again. Urology seen patient for a nonfunctioning suprapubic tube with urinary leakage. The old suprapubic tube was removed and 16 [place] Collier catheter was replaced , however irrigation of the bladder did not show any stable return of the fluid. Subsequently F 18 [place]ian Collier was placed to urethra , which was successfully done and bladder was irrigated. Balloon was inflated , and old suprapubic tube was removed . and dressing was placed. CODE STATUS was changed to DNR/DNI on 04/05 after a long discussion with the family and reconsidering the further goals of care. Patient was placed on comfort care with morphine drip. End-of-life care provided. Patient condition was deteriorating . Patient was pronounced at 22:50 on 04/06 . Cause of : cardiopulmonary arrest . FINAL DIAGNOSES: Acute on chronic respiratory failure Sepsis with MRSA bacteremia Pneumonia Persistent leukocytosis Sacral decubitus ulcer, stage IV, present on admission-with associated OM UTI Ventilator dependent respiratory failure, tracheostomy status COPD Dysphagia , feeding by G-tube History of ICH Diabetes mellitus Hypertension Electrolyte abnormality Severe protein calorie malnutrition Stool OB positive Nonfunctional suprapubic catheter, status post removal Anemia Parkinson disease dementia Chronic vegetative state Comfort care I have been assigned to dictate discharge summary for this account. Isabel Polo NP Apr 10, 2020 12:28
== END 2020-04-06 22:50 | disposition expired | DRG 870 ==
LOC: EDBD 00:42 → EMR 01:10 → ICU 01:58 → EDBEDREQ 02:12 → 2W 18:45 → 4E 04-05 23:10
PROC: 5A1955Z Respiratory Ventilation, Greater than 96 Consecutive Hours (ICD-10-PCS; principal; 2020-03-11)
DX: A41.02 Sepsis due to Methicillin resistant Staphylococcus aureus (principal); L89.154 Pressure ulcer of sacral region, stage 4; J96.21 Acute and chronic respiratory failure with hypoxia; J18.9 Pneumonia, unspecified organism; E43 Unspecified severe protein-calorie malnutrition; N39.0 Urinary tract infection, site not specified; E87.0 Hyperosmolality and hypernatremia; J44.0 Chronic obstructive pulmonary disease with (acute) lower respiratory infection; M86.8X8 Other osteomyelitis, other site; G91.8 Other hydrocephalus; Z99.11 Dependence on respirator [ventilator] status; I47.1 Supraventricular tachycardia; R40.3 Persistent vegetative state; N99.512 Cystostomy malfunction; Z93.0 Tracheostomy status; I12.9 Hypertensive chronic kidney disease with stage 1 through stage 4 chronic kidney disease, or unspecified chronic kidney disease; E11.22 Type 2 diabetes mellitus with diabetic chronic kidney disease; N18.9 Chronic kidney disease, unspecified; Z93.1 Gastrostomy status; G20 Parkinson's disease; F02.80 Dementia in other diseases classified elsewhere, unspecified severity, without behavioral disturbance, psychotic disturbance, mood disturbance, and anxiety; M10.9 Gout, unspecified; Z20.828 Contact with and (suspected) exposure to other viral communicable diseases; Z68.24 Body mass index [BMI] 24.0-24.9, adult; R13.10 Dysphagia, unspecified; Z74.01 Bed confinement status; H40.9 Unspecified glaucoma; D64.9 Anemia, unspecified; D47.3 Essential (hemorrhagic) thrombocythemia; Z51.5 Encounter for palliative care; R19.7 Diarrhea, unspecified; E83.52 Hypercalcemia; Z66 Do not resuscitate
CPT/HCPCS: 36415; 71045; 71250; 74177; 78803; 80048; 80053; 80061; 80202; 81001; 81003; 81050; 82040; 82270; 82378; 82550; 82553; 82607; 82728; 82746; 82803; 82962; 82977; 83540; 83550; 83605; 83615; 83690; 83735; 83880; 84100; 84133; 84134; 84156; 84300; 84443; 84484; 84550; 85007; 85025; 85044; 85060; 85379; 85610; 85651; 85730; 86140; 86850; 86900; 86901; 86920; 87040; 87045; 87070; 87081; 87086; 87181; 87205; 87324; 89050; 93005; 93306; 93970; 94002; 94003; 96361; 96365; 96367; 99291; A9570; J1815; J2430; J7030; J8499; U0002